=== PATIENT | female | born 1980 | race Caucasian/White ===

== ENCOUNTER 2019-07-11 15:32 | Observation (INO) ==
[2019-07-11] MEDS ORDERED: ACETAMINOPHEN 1,000 MG/100 ML VIAL IV PRN (16:02)
[2019-07-11] MEDS ORDERED: PROCHLORPERAZINE 10 MG in SYRINGE 8 ML IV ONE (16:02)
[2019-07-11] MEDS ORDERED: SODIUM CHLORIDE 0.9% 1000ML 1,000 ML IV ONE (16:02)
[2019-07-11] MEDS ORDERED: PROCHLORPERAZINE 5 MG/ML 2 ML VIAL ONE (16:24)
--- NOTE | 2019-07-11 16:29 | Emergency Department Note ---
History of Present Illness General Chief complaint: Abdominal Pain Stated complaint: UPPER QUADRANT PAIN, CHEST BACK PAIN, THROWING UP Time Seen by Provider: 07/11/19 15:46 History of Present Illness Maximum Pain Intensity: 9 This 38-year-old female presents returns to the ER today after being here yesterday with chief complaint of left upper quadrant abdominal pain and vomiting. The patient states that she has not been able to keep any of her medications down. The patient has been diagnosed with peptic ulcers by endoscopy performed 2 weeks ago with in [place]. She has an appointment with gastroenterology tomorrow at 3:45 PM. The patient states that she is here for pain control. Home Medications Home Medications Medication Instructions Recorded Confirmed Type bumetanide 1 mg PO QAM 07/10/19 07/11/19 History dicyclomine 10 mg PO QID 07/10/19 07/11/19 History gabapentin 400 mg PO TID 07/10/19 07/11/19 History levothyroxine 25 mcg PO QAM 07/10/19 07/11/19 History lorazepam 1 mg PO QID PRN 07/10/19 07/11/19 History naloxone [Narcan] 4 mg INTRANASAL UD 07/10/19 07/11/19 History naproxen sodium 220 mg PO Q8H PRN 07/10/19 07/11/19 History ondansetron 4 mg PO Q6H PRN 07/10/19 07/11/19 History pantoprazole 40 mg PO BID 07/10/19 07/11/19 History sennosides-docusate sodium [Senna 1 tab PO HS 07/10/19 07/11/19 History Plus] sucralfate 1 g PO QID 07/10/19 07/11/19 History venlafaxine 300 mg PO QAM 07/10/19 07/11/19 History zolpidem [Ambien] 10 mg PO HS PRN 07/10/19 07/11/19 History Allergies Allergy/AdvReac Type Severity Reaction Status Date / Time Sulfa (Sulfonamide Allergy Intermediate LUPUS Verified 07/11/19 16:54 Antibiotics) FLARE UP dexamethasone Allergy Unknown HIVES Verified 07/11/19 16:54 duloxetine Allergy Unknown UNKNOWN Verified 07/11/19 16:54 escitalopram Allergy Unknown UNKNOWN Verified 07/11/19 16:54 latex Allergy Unknown HIVES Verified 07/11/19 16:54 morphine Allergy Unknown local Verified 07/11/19 16:54 reaction at site pregabalin Allergy Unknown UNKNOWN Verified 07/11/19 16:54 Past Med/Surg History Medical History Clotting disorder (Chronic) Fibromyalgia (Chronic) Lupus (Chronic 04/04/14) Pleurisy (Resolved) Pulmonary embolism (Resolved) Serositis (Acute) Systemic lupus (Acute) Surgical History H/O: hysterectomy (Resolved) Hx of appendectomy (Resolved) Hx of cholecystectomy (Resolved) Family History Other No pertinent family history in first degree relatives Social History Feels Safe at Home: Yes Smoking Status: Never smoker Review of Systems A total of 10 systems reviewed and were otherwise negative Physical Exam Vital Signs Vital Signs - 24 hr 07/11/19 15:38 07/11/19 17:17 07/11/19 18:28 Temperature 36.9 C Temperature Source Oral Pulse Rate 100 H Pulse Rate [Finger] 95 H 93 H Respiratory Rate 18 20 20 Respiratory Effort / Characteristics Non-Labored Respiratory Depth Normal Respiratory Pattern Regular Blood Pressure 188/140 H Blood Pressure [Right Arm] 171/130 H 155/87 H Blood Pressure Mean 156 Blood Pressure Mean [Right Arm] 143 109 Pulse Oximetry 97 96 96 Oxygen Delivery Method Room Air Room Air Room Air Sepsis Recent Fever Within 48 Hours No Sepsis New/Unexplained Change in Mental Status No Sepsis Action Taken by Nursing No Action Required 07/11/19 18:30 07/11/19 20:30 07/11/19 22:01 Temperature Temperature Source Pulse Rate Pulse Rate [Finger] 87 89 90 Respiratory Rate 18 20 20 Respiratory Effort / Characteristics Non-Labored Spontaneous Respiratory Depth Normal Respiratory Pattern Blood Pressure Blood Pressure [Right Arm] 159/90 H 163/109 H 186/119 H Blood Pressure Mean Blood Pressure Mean [Right Arm] 113 127 141 Pulse Oximetry 96 95 96 Oxygen Delivery Method Room Air Room Air Room Air Sepsis Recent Fever Within 48 Hours Sepsis New/Unexplained Change in Mental Status Sepsis Action Taken by Nursing GENERAL: 38-year-old female appears in no acute distress. MENTAL Status: Alert and oriented x3. MOUTH: Mucosa is moist NECK: Supple, no lymphadenopathy noted. No carotid bruits noted. LUNGS: Clear auscultation without wheezes rales or rhonchi. CARDIAC: Regular rate and rhythm without murmur. Pulses is full and equal throughout. BACK: No CVA tenderness noted. ABDOMEN: Positive bowel sounds all 4 quadrants. Soft, tenderness to palpation in the epigastric region and left upper quadrant otherwise nontender to palpation without organomegaly or masses. EXTREMITIES: No cyanosis or edema noted. Course Administered Medications Discontinued Medications Acetaminophen (Ofirmev) Confirm Administered Dose 1,000 mg IV .STK-MED ONE Stop: 07/11/19 16:24 Last Admin: 07/11/19 17:13 Dose: 1,000 mg Documented by: [id number] Admin: 07/11/19 17:13 Dose: Not Given Documented by: [id number] Diphenhydramine HCl (Benadryl) 50 mg IV NOW STA Stop: 07/11/19 21:45 Last Admin: 07/11/19 21:58 Dose: 50 mg Documented by: [id number] Hydromorphone HCl (Dilaudid) 1 mg IV NOW STA Stop: 07/11/19 17:49 Last Admin: 07/11/19 17:56 Dose: 1 mg Documented by: [id number] Hydromorphone HCl (Dilaudid) 0.5 mg IV NOW STA Stop: 07/11/19 18:50 Last Admin: 07/11/19 19:01 Dose: 0.5 mg Documented by: [id number] Sodium Chloride (Nss 1000ml) 1,000 mls @ 999 mls/hr IV .Q1H1M ONE Stop: 07/11/19 17:02 Last Infusion: 07/11/19 18:28 Dose: 0 mls/hr Documented by: [id number] Admin: 07/11/19 17:13 Dose: 999 mls/hr Documented by: [id number] Prochlorperazine 10 mg/ (Syringe) 10 mls @ 5 mls/min IV ONE ONE Stop: 07/11/19 16:03 Last Admin: 07/11/19 17:12 Dose: 5 mls/min Documented by: [id number] Pantoprazole Sodium 40 mg/ (Syringe) 10 mls @ 5 mls/min IV NOW STA Stop: 07/11/19 21:49 Last Admin: 07/11/19 22:00 Dose: 5 mls/min Documented by: [id number] Prochlorperazine (Compazine) Confirm Administered Dose 10 mg .ROUTE .STK-MED ONE Stop: 07/11/19 16:25 Last Admin: 07/11/19 17:13 Dose: Not Given Documented by: [id number] Promethazine HCl (Phenergan) 25 mg IM NOW STA Stop: 07/11/19 19:07 Last Admin: 07/11/19 19:13 Dose: 25 mg Documented by: [id number] Sucralfate (Carafate) 1 gm PO NOW STA Stop: 07/11/19 18:09 Last Admin: 07/11/19 18:27 Dose: 1 gm Documented by: [id number] Medical Decision Making Differential Diagnosis Peptic ulcer disease, gastritis, Medical Records Attestation: I reviewed the patient's medical records. Home Medications Current Medication List: was personally reviewed by me Laboratory Data Result diagrams: 07/11/19 19:33 07/11/19 19:33 Lab Results 07/11/19 07/11/19 07/11/19 Range/Units 19:33 19:33 19:33 WBC 12.60 H (4.8-10.8) K/uL RBC 4.96 (4.2-5.4) M/uL Hgb 15.5 (12.0-16.0) g/dL Hct 44.6 (37-47) % MCV 89.9 (80-100) fL MCH 31.3 (25-34) pg MCHC 34.8 (32-36) g/dL RDW Std Deviation 41.0 (36.4-46.3) fL RDW Coeff of Meg 12.7 (11.5-14.5) % Plt Count 253 (130-400) K/uL MPV 10.4 (7.4-10.4) fL Immature Gran % (Auto) 0.2 % Neut % (Auto) 78.5 % Lymph % (Auto) 14.5 % [place] % (Auto) 6.7 % Eos % (Auto) 0.0 % Baso % (Auto) 0.1 % Immature Gran # (Auto) 0.03 H (0.00-0.02) K/uL Neut # (Auto) 9.89 H (1.4-6.5) K/uL Lymph # (Auto) 1.83 (1.2-3.4) K/uL [place] # (Auto) 0.84 H (0.11-0.59) K/uL Eos # (Auto) 0.00 (0-0.5) K/uL Baso # (Auto) 0.01 (0-0.2) K/uL PT 10.9 (9.0-12.0) Seconds INR 1.1 (0.9-1.1) Sodium 139 (136-145) mmol/L Potassium 3.4 L (3.5-5.1) mmol/L Chloride 107 (98-107) mmol/L Carbon Dioxide 25 (21-32) mmol/L Anion Gap 7.0 (3-11) BUN 18 (7-18) mg/dl Creatinine 1.13 (0.6-1.2) mg/dl Est Cr Clr Drug Dosing 90.1 ml/min Est GFR ( Amer) 71.4 Est GFR (Non-Af Amer) 61.6 BUN/Creatinine Ratio 16.1 (10-20) Glucose 96 (70-99) mg/dl Calcium 9.1 (8.5-10.1) mg/dl Total Bilirubin 0.3 (0.2-1) mg/dl AST 13 L (15-37) U/L ALT 20 (12-78) U/L Alkaline Phosphatase 78 (45-117) U/L Total Protein 7.7 (6.4-8.2) gm/dl Albumin 4.1 (3.4-5.0) gm/dl Globulin 3.6 (2.5-4.0) gm/dl Albumin/Globulin Ratio 1.1 (0.9-2) Blood Pressure Blood Pressure Findings: Elevated blood pressure Blood Pressure Disposition: Referred to patients primary care provider MDM Narrative The patient was evaluated. The patient was just seen here last evening for the same thing. The patient's labs were unremarkable. Her hemoglobin was 16 and hematocrit was 44. White count was normal. LFTs were normal. IV access was obtained. The patient was given 1 L normal saline. She was given Compazine 10 mg IV and Tylenol 1 g IV for pain. The patient was reevaluated and still was not feeling any better therefore she was given Dilaudid 1 mg IV for pain. After her pain seemed to be slightly better she was given Carafate to see if this would calm her stomach pain. She was reevaluated and stated she was not any better. She was given an additional 1.5 mg of Dilaudid IV and Phenergan 25 mg IM for persistent nausea. I feel that this patient will need to be admitted due to her uncontrolled pain. Therefore I will draw labs on the patient before admission. CBC and differential, renal profile, LFTs and coags were ordered. Labs are reviewed. White count was slightly elevated 12.6. Hemoglobin and hematocrit were stable at 15.5 and 44.6 respectively. INR is 1.1. Potassium is slightly low at 3.4. LFTs are normal. The patient was informed of the lab findings. The patient was still complaining of pain at an 8 out of 10. She was given Benadryl 50 mg IV and Protonix 40 mg IV push. The hospitalist was consulted for admission. Impression & Plan Intractable epigastric abdominal pain, Peptic ulcer disease Discharge Plan Visit Data Chief Complaint: Abdominal Pain Stated Complaint: UPPER QUADRANT PAIN, CHEST BACK PAIN, THROWING UP ED Provider: Abel Crespo ED Midlevel Provider: Xi Uriostegui Discharge Problem: Intractable epigastric abdominal pain, Peptic ulcer disease Patient Disposition: Being Evaluated by Hospitalist Condition: Good Forms Stand Alone Forms: Call Back Authorization, [facility] Prescriptions Prescriptions: No Action sucralfate 1 gram tablet 1 g PO QID RF: 0 sennosides-docusate sodium [Senna Plus] 8.6-50 mg tablet 1 tab PO HS RF: 0 gabapentin 400 mg capsule 400 mg PO TID RF: 0 venlafaxine 150 mg capsule,extended release 24hr 300 mg PO QAM RF: 0 levothyroxine 25 mcg tablet 25 mcg PO QAM RF: 0 pantoprazole 40 mg tablet,delayed release (DR/EC) 40 mg PO BID RF: 0 naproxen sodium 220 mg Tablet 220 mg PO Q8H PRN (Reason: Pain) RF: 0 bumetanide 1 mg tablet 1 mg PO QAM RF: 0 ondansetron 4 mg tablet,disintegrating 4 mg PO Q6H PRN (Reason: Nausea) RF: 0 dicyclomine 10 mg capsule 10 mg PO QID RF: 0 Narcan 4 mg/actuation spray,non-aerosol 4 mg INTRANASAL UD RF: 0 lorazepam 1 mg Tablet 1 mg PO QID PRN (Reason: Anxiety) RF: 0 zolpidem [Ambien] 10 mg Tablet 10 mg PO HS PRN (Reason: Sleep) RF: 0 Referrals Referrals: Ashwin Garcia, [Primary Care Provider] -
[2019-07-11] MEDS: ACETAMINOPHEN 1000 MG/100 ML IV IV ONE ×2 (17:13)
[2019-07-11] MEDS ORDERED: HYDROmorphone INJ 1 MG/ML SYRINGE IV STA (17:48)
[2019-07-11] MEDS ORDERED: SUCRALFATE 1 GM/10 ML UDC PO STA (18:08)
[2019-07-11] MEDS ORDERED: HYDROmorphone INJ 0.5 MG/0.5 ML SYR IV STA (18:49)
[2019-07-11] MEDS ORDERED: PROMETHAZINE HCL INJ 25 MG/ML 1 ML VIAL IM STA (19:06)
[2019-07-11 19:55] LABS: Basophils # (auto) 0.01 K/uL (0-0.2); Basophils % (auto) 0.1 %; Hematocrit (blood only) 44.6 % (37-47); Hemoglobin 15.5 g/dL (12.0-16.0); Immature Granulocytes # (auto) 0.03 K/uL (0.00-0.02); Immature Granulocytes % (auto) 0.2 %; Lymphocytes # (auto) 1.83 K/uL (1.2-3.4); Lymphocytes % (auto) 14.5 %; Mean Corpuscular Hemoglobin 31.3 pg (25-34); Mean Corpuscular Hgb Conc 34.8 g/dL (32-36); Mean Corpuscular Volume 89.9 fL (80-100); Mean Platelet Volume 10.4 fL (7.4-10.4); Monocytes # (auto) 0.84 K/uL (0.11-0.59); Monocytes % (auto) 6.7 %; Neutrophils # (auto) 9.89 K/uL (1.4-6.5); Neutrophils % (auto) 78.5 %; Platelet Count 253 K/uL (130-400); RDW Coefficient of Variation 12.7 % (11.5-14.5); Red Blood Count 4.96 M/uL (4.2-5.4)
[2019-07-11 20:04] LABS: INR 1.1 (0.9-1.1); Prothrombin Time 10.9 Seconds (9.0-12.0)
[2019-07-11 20:20] LABS: Albumin Level 4.1 gm/dl (3.4-5.0); BUN Creatinine Ratio 16.1 (10-20); Calcium 9.1 mg/dl (8.5-10.1); Creatinine Clr Calc Pharmacy 90.1 ml/min; Est GFR (African American) 71.4; Est GFR (Non-African American) 61.6; Potassium 3.4 mmol/L (3.5-5.1)
[2019-07-11 20:22] LABS: Albumin Globulin Ratio 1.1 (0.9-2); Bilirubin,Total 0.3 mg/dl (0.2-1); Globulin 3.6 gm/dl (2.5-4.0); Total Protein 7.7 gm/dl (6.4-8.2)
[2019-07-11] MEDS ORDERED: DiphenhydrAMINE HCL 50 MG/ML VIAL IV STA (21:44)
[2019-07-11] MEDS ORDERED: PANTOprazole 40 MG in SYRINGE 0 ML IV STA (21:48)
--- NOTE | 2019-07-11 22:24 | History & Physical Report ---
Date of Service July 11, 2019 Assessment & Plan (1) Abdominal pain, LUQ: Admit to [facility] on telemetry for observation Vital signs every 4 hours. Normal saline at 100 cc/h IV. Pain management Continue dicyclomine 10 mg p.o. 4 times daily Sucralfate 1 mg p.o. 4 times daily Antinausea with Phenergan, Compazine and Zofran. DVT prophylaxis teds and SCDs due to possible GI bleed. CBC every 8 hours. Consult [facility] GI Full code Present on Admission?: Yes (2) Fibromyalgia: Chronic issue. Continue gabapentin 400 mg p.o. 3 times daily, lorazepam 1 mg p.o. 4 times daily as needed, venlafaxine 300 mg p.o. every morning, zolpidem 10 mg p.o. nightly as needed. Present on Admission?: Yes (3) Systemic lupus: Chronic issue, patient is not on any medication at this time. Present on Admission?: Yes (4) UTI (lower urinary tract infection): Started ceftriaxone 2000 mg IV every 24 hours. Stop antibiotics if urine culture negative. Present on Admission?: Yes (5) Hyperthyroidism: TSH pending. Continue levothyroxine 25 MCG's p.o. every morning. Present on Admission?: Yes History of Present Illness Chief Complaint: Abdominal pain Primary Care Provider: Ashwin Garcia DO Patient is a 38 years old female with past medical history of lupus, cholecystectomy, hysterectomy, appendectomy, fibromyalgia who presents to the emergency room with complaint of abdominal pain and nausea and vomiting. Patient was in the emergency room yesterday and chief complaint was the same. Patient states that she was seen 2 weeks ago by [facility] gastroenterology and underwent endoscopy which determined that she has a peptic ulcers. Patient has appointment with gastroenterology to moderate 3:45 PM. Patient presumptively has urinary tract infection with 1+ bacteria. It could be considered also nonsterile catch. Labs are reviewed: WBCs 12.6, hemoglobin 15.5, hematocrit 44.6 platelets 253, PT 10.9, INR 1.1, sodium 139, potassium 3.4, chloride 107, BUN 18, creatinine 1.13, GFR 61.6, calcium 9.1, AST 13, ALT 20, alkaline phosphatase [address] abdomen and pelvis is done and shows severe small left ovarian cyst measuring 2.5 cm. Otherwise negative past cholecystectomy nonobstructive bowel pattern. Decision was made to admit patient for observation MedSurg telemetry and for better markus pain control. [facility]. Allergies Allergy/AdvReac Type Severity Reaction Status Date / Time Sulfa (Sulfonamide Allergy Intermediate LUPUS Verified 07/11/19 16:54 Antibiotics) FLARE UP dexamethasone Allergy Unknown HIVES Verified 07/11/19 16:54 duloxetine Allergy Unknown UNKNOWN Verified 07/11/19 16:54 escitalopram Allergy Unknown UNKNOWN Verified 07/11/19 16:54 latex Allergy Unknown HIVES Verified 07/11/19 16:54 morphine Allergy Unknown local Verified 07/11/19 16:54 reaction at site pregabalin Allergy Unknown UNKNOWN Verified 07/11/19 16:54 Home Medications Home Medications Medication Instructions Recorded Confirmed Type bumetanide 1 mg PO QAM 07/10/19 07/11/19 History dicyclomine 10 mg PO QID 07/10/19 07/11/19 History gabapentin 400 mg PO TID 07/10/19 07/11/19 History levothyroxine 25 mcg PO QAM 07/10/19 07/11/19 History lorazepam 1 mg PO QID PRN 07/10/19 07/11/19 History naloxone [Narcan] 4 mg INTRANASAL UD 07/10/19 07/11/19 History naproxen sodium 220 mg PO Q8H PRN 07/10/19 07/11/19 History ondansetron 4 mg PO Q6H PRN 07/10/19 07/11/19 History pantoprazole 40 mg PO BID 07/10/19 07/11/19 History sennosides-docusate sodium [Senna 1 tab PO HS 07/10/19 07/11/19 History Plus] sucralfate 1 g PO QID 07/10/19 07/11/19 History venlafaxine 300 mg PO QAM 07/10/19 07/11/19 History zolpidem [Ambien] 10 mg PO HS PRN 07/10/19 07/11/19 History Past Med/Surg History Medical History Clotting disorder (Chronic) Fibromyalgia (Chronic) Lupus (Chronic 04/04/14) Pleurisy (Resolved) Pulmonary embolism (Resolved) Serositis (Acute) Systemic lupus (Acute) Surgical History H/O: hysterectomy (Resolved) Hx of appendectomy (Resolved) Hx of cholecystectomy (Resolved) Family History Other No pertinent family history in first degree relatives Social History Feels Safe at Home: Yes Smoking Status: Never smoker Review of Systems Review of Systems: All systems reviewed & are unremarkable except as noted in HPI & below Physical Exam Constitutional: WD/WN, vitals as above well developed Eyes: PERRL, conjunctivae normal, anicteric sclerae ENMT: external ear and nose normal, oropharynx normal Neck: trachea midline, no thyromegaly Respiratory: normal respiratory effort, lungs clear to auscultation Cardiovascular: RRR, no murmur, no edema Gastrointestinal (Abdomen): normal bowel sounds, soft, nontender, no hepatosplenomegaly Inspection/Auscultation: abdomen normal to inspection and normal bowel sounds Percussion/Palpation: + abdomen tender, + guarding and + tympanic to percussion Musculoskeletal: no cyanosis or clubbing, extremities motor strength 5/5 Skin: no rashes, warm and dry Neurologic: patellar DTR's 2+ bilat, sensation intact Psychiatric: A+Ox3, euthymic affect Lymphatic: no cervical or axillary lymphadenopathy Results & Data Vital Signs (Past 12 Hours) Vital Signs Temp Pulse Pulse Resp BP BP Pulse Ox 07/11/19 22:01 90 20 186/119 H 96 07/11/19 20:30 89 20 163/109 H 95 07/11/19 18:30 87 18 159/90 H 96 07/11/19 18:28 93 H 20 155/87 H 96 07/11/19 17:17 95 H 20 171/130 H 96 07/11/19 15:38 36.9 C 100 H 18 188/140 H 97 Code Status & VTE Plan Code Status Full code VTE Prophylaxis Plan VTE Prophylaxis will be ordered: Yes PG Care Time/CCT Total # of Minutes Spent Total Time Spent with Patient: Total time spent is greater than 50% in coordination of care (as documented) at patient's floor/unit and/or counseling patient:
[2019-07-11] MEDS ORDERED: fentaNYL 25 MCG/HR TDSY TD SCH (23:00)
[2019-07-11] MEDS ORDERED: POLYETHYLENE (MIRALAX) 17 GM PACK PO PRN (23:34)
[2019-07-11] MEDS ORDERED: ALUMINUM/MAGNESIUM SUSP 30 ML UDC PO PRN (23:34)
[2019-07-11] MEDS ORDERED: MAGNESIUM HYDROXIDE SUSP 30 ML UDC PO PRN (23:34)
[2019-07-11] MEDS ORDERED: ACETAMINOPHEN 325 MG TAB PO PRN (23:34)
[2019-07-12] MEDS: LORazepam 1 MG TAB PO PRN ×5 (00:09→21:10)
[2019-07-12] MEDS: ZOLPIDEM TARTRATE 10 MG TAB PO PRN ×2 (00:09→21:10)
[2019-07-12] MEDS: CHECK FENTANYL PATCH PLACEMENT SCH ×3 (00:12→15:53)
[2019-07-12] MEDS: cefTRIAXone SODIUM 2,000 MG/70 ML BAG IV SCH (00:12)
[2019-07-12] MEDS ORDERED: OXYCODONE HCL IR 5 MG TAB (IMMEDIATE RELEASE) PO STA ×2 (00:44→05:33)
[2019-07-12] MEDS: LEVOTHYROXINE SODIUM 25 MCG TABLET PO SCH (05:39)
[2019-07-12] MEDS: BUMETANIDE 1 MG TAB PO SCH (08:09)
[2019-07-12] MEDS: DICYCLOMINE HCL 10 MG CAP PO SCH ×4 (08:09→21:05)
[2019-07-12] MEDS: GABAPENTIN 400 MG CAP PO SCH ×3 (08:10→21:05)
[2019-07-12] MEDS: PANTOprazole 40 MG in SYRINGE 0 ML IV SCH ×2 (08:10→21:05)
[2019-07-12] MEDS: SUCRALFATE 1 GM TAB PO SCH ×4 (08:11→21:05)
[2019-07-12] MEDS: VENLAFAXINE HCL XR 150 MG CAPXR PO SCH (08:11)
--- NOTE | 2019-07-12 08:32 | Communication Note ---
Date of Service: July 12, 2019 Upon entering pt room she notes she was to see Dr. Jeffries with [facility] as an outpatient today - will discuss with primary service for continuity of care. Please recall [facility] if needed. Of note, outpatient [facility] facilities do not accept her insurance.
[2019-07-12] MEDS ORDERED: INFLUENZA VIRUS QUAD VACCINE 0.5 ML SYR IM ONE (09:00)
[2019-07-12] MEDS ORDERED: INFLUENZA ADMINISTRATION CHARGE ONE (09:00)
[2019-07-12] MEDS: HYDROmorphone INJ 1 MG/ML SYRINGE IV PRN ×3 (12:19→21:06)
[2019-07-12 12:42] LABS: Basophils # (auto) 0.04 K/uL (0-0.2); Basophils % (auto) 0.4 %; Eosinophils # (auto) 0.11 K/uL (0-0.5); Eosinophils % (auto) 1.2 %; Hematocrit (blood only) 42.5 % (37-47); Hemoglobin 14.8 g/dL (12.0-16.0); Immature Granulocytes # (auto) 0.02 K/uL (0.00-0.02); Immature Granulocytes % (auto) 0.2 %; Lymphocytes # (auto) 2.95 K/uL (1.2-3.4); Lymphocytes % (auto) 32.7 %; Mean Corpuscular Hemoglobin 31.8 pg (25-34); Mean Corpuscular Hgb Conc 34.8 g/dL (32-36); Mean Corpuscular Volume 91.2 fL (80-100); Mean Platelet Volume 10.1 fL (7.4-10.4); Monocytes # (auto) 0.39 K/uL (0.11-0.59); Monocytes % (auto) 4.3 %; Neutrophils # (auto) 5.52 K/uL (1.4-6.5); Neutrophils % (auto) 61.2 %; Platelet Count 200 K/uL (130-400); RDW Standard Deviation 42.7 fL (36.4-46.3); Red Blood Count 4.66 M/uL (4.2-5.4); White Blood Count 9.03 K/uL (4.8-10.8)
[2019-07-12 13:10] LABS: Alanine Aminotransferase 19 U/L (12-78); Albumin Level 3.9 gm/dl (3.4-5.0); Aspartate Aminotransferase 12 U/L (15-37); BUN Creatinine Ratio 17.1 (10-20); Blood Urea Nitrogen 20 mg/dl (7-18); Calcium 8.9 mg/dl (8.5-10.1); Carbon Dioxide 29 mmol/L (21-32); Chloride 104 mmol/L (98-107); Creatinine Clr Calc Pharmacy 88.4 ml/min; Est GFR (African American) 69.9; Est GFR (Non-African American) 60.3; Glucose 85 mg/dl (70-99); Lipase 36 U/L (73-393); Potassium 3.2 mmol/L (3.5-5.1); Sodium 138 mmol/L (136-145)
[2019-07-12 13:12] LABS: Albumin Globulin Ratio 1.1 (0.9-2); Alkaline Phosphatase 72 U/L (45-117); Bilirubin,Total 0.5 mg/dl (0.2-1); C Reactive Protein < 0.29 mg/dl (0-0.29); Globulin 3.5 gm/dl (2.5-4.0); Total Protein 7.4 gm/dl (6.4-8.2)
--- NOTE | 2019-07-12 14:04 | Hospitalist Progress Note ---
Date of Service July 12, 2019 Assessment & Plan (1) Abdominal pain, LUQ: no clear etiology CMP, CBC, lipase, ESR, CRP normal no pancreatitis or other inflammatory/infectious changes on CT from 07/10 no vomiting, no diarrhea EGD 07/12 completely normal will reassess pain in the morning, discussed with her that I will not prescribe narcotics on discharge as there is no reason for pain (2) Fibromyalgia: Chronic issue. Continue gabapentin 400 mg p.o. 3 times daily, lorazepam 1 mg p.o. 4 times daily as needed, venlafaxine 300 mg p.o. every morning, zolpidem 10 mg p.o. nightly as needed. would need follow up with new PCP, oysterman will try to help her arrange tomorrow (3) Systemic lupus: describes h/o rash, arthralgia, nephritis also with h/o coagulopathy, 7 spontaneous miscarriages, had hysterectomy due to menorrhagia will try to get prior records not on medications for 4 years, does not have a oysterman (4) UTI (lower urinary tract infection): continue ceftriaxone 2000 mg IV every 24 hours. urine culture with moderate counts of three organisms no plan to continue abx on discharge (5) Hyperthyroidism: TSH normal Subjective patient c/o constant left upper quadrant pain radiates to epigastric and RUQ region as well as up to chest she had pain like this before prior to her EGD two weeks ago that showed gastritis she reports that the pain started two days ago, associated with vomiting, she reports that she saw blood and clots she is moving her bowels, no dark stools or melena she has had minimal relief with the Bentyl and Fentanyl patch that was prescribed she confirms h/o appendectomy, cholecystectomy she had a hysterectomy due to 7 miscarriages and menorrhagia, says it was attributed to lupus her h/o lupus is kind of vague, she says she gets skin and arthritic manifestations she says she has low grade nephritis however, she has not been on any treatment for 4 years, does not follow with oysterman repeated labs, CMP, CBC, lipase, ESR and CRP all normal reviewed CT from 07/10, no pancreatits, no intra-abdominal abnormalities d/w Dr. Rashid, he performed EGD this afternoon completely normal scope discussed with her afterwards, no real etiology for pain she kept saying she was not pain seeking Review of Systems Review of Systems: All systems reviewed & are unremarkable except as noted in HPI & below Physical Exam Constitutional: WD/WN, vitals as above Eyes: PERRL, conjunctivae normal, anicteric sclerae ENMT: external ear and nose normal, oropharynx normal Neck: trachea midline, no thyromegaly Respiratory: normal respiratory effort, lungs clear to auscultation Cardiovascular: RRR, no murmur, no edema Gastrointestinal (Abdomen): Inspection/Auscultation: abdomen normal to inspection and normal bowel sounds; abdomen not distended Percussion/Palpation: + abdomen tender (LUQ), + guarding, abdomen soft and normal to percussion; abdomen not rigid, no hepatosplenomegaly, no pulsatile mass and no ascites Musculoskeletal: no cyanosis or clubbing, extremities motor strength 5/5 Skin: no rashes, warm and dry Neurologic: patellar DTR's 2+ bilat, sensation intact and PERRL, EOMI, accommodation nl, no face palsy, no dysarthria Psychiatric: A+Ox3, euthymic affect Lymphatic: no cervical or axillary lymphadenopathy Results & Data Vital Signs (Past 12 Hours) Vital Signs Temp Pulse Pulse Resp BP BP Pulse Ox 07/12/19 12:15 36.8 C 69 18 149/82 H 93 07/12/19 07:57 36.7 C 76 20 142/80 H 94 07/12/19 07:32 77 07/12/19 03:40 36.8 C 79 18 150/72 H 95 Laboratory Results Laboratory Results - last 24 hr 07/11/19 07/12/19 07/12/19 19:33 08:50 12:19 WBC 9.03 RBC 4.66 Hgb 14.8 Hct 42.5 MCV 91.2 MCH 31.8 MCHC 34.8 RDW Std Deviation 42.7 RDW Coeff of Meg 13.0 Plt Count 200 MPV 10.1 Immature Gran % (Auto) 0.2 Neut % (Auto) 61.2 Lymph % (Auto) 32.7 Moore % (Auto) 4.3 Eos % (Auto) 1.2 Baso % (Auto) 0.4 Immature Gran # (Auto) 0.02 Neut # (Auto) 5.52 Lymph # (Auto) 2.95 Moore # (Auto) 0.39 Eos # (Auto) 0.11 Baso # (Auto) 0.04 ESR Sodium 139 Potassium 3.4 L Chloride 107 Carbon Dioxide 25 Anion Gap 7.0 BUN 18 Creatinine 1.13 Est Cr Clr Drug Dosing 90.1 Est GFR ( Amer) 71.4 Est GFR (Non-Af Amer) 61.6 BUN/Creatinine Ratio 16.1 Glucose 96 Calcium 9.1 Total Bilirubin 0.3 AST 13 L ALT 20 Alkaline Phosphatase 78 C-Reactive Protein Total Protein 7.7 Albumin 4.1 Globulin 3.6 Albumin/Globulin Ratio 1.1 Lipase TSH 2.160 07/12/19 07/12/19 12:19 12:19 WBC RBC Hgb Hct MCV MCH MCHC RDW Std Deviation RDW Coeff of Meg Plt Count MPV Immature Gran % (Auto) Neut % (Auto) Lymph % (Auto) Moore % (Auto) Eos % (Auto) Baso % (Auto) Immature Gran # (Auto) Neut # (Auto) Lymph # (Auto) Moore # (Auto) Eos # (Auto) Baso # (Auto) ESR 8 Sodium 138 Potassium 3.2 L Chloride 104 Carbon Dioxide 29 Anion Gap 5.0 BUN 20 H Creatinine 1.15 Est Cr Clr Drug Dosing 88.4 Est GFR ( Amer) 69.9 Est GFR (Non-Af Amer) 60.3 BUN/Creatinine Ratio 17.1 Glucose 85 Calcium 8.9 Total Bilirubin 0.5 AST 12 L ALT 19 Alkaline Phosphatase 72 C-Reactive Protein < 0.29 Total Protein 7.4 Albumin 3.9 Globulin 3.5 Albumin/Globulin Ratio 1.1 Lipase 36 L TSH Diagnostic Findings EGD: normal stomach, duodenum, esophagus, no evidence of ulcers or inflammation Medications Administered Current Inpatient Medications Acetaminophen (Tylenol) 650 mg PO Q4H PRN PRN Reason: pain/fever Stop: 08/10/19 23:33 Al Hydrox/Mg Hydrox/Simethicone (Maalox) 30 ml PO Q6H PRN PRN Reason: Dyspepsia Stop: 08/10/19 23:33 Bumetanide (Bumex) 1 mg PO QAM [facility]AO Stop: 08/11/19 08:59 Last Admin: 07/12/19 08:09 Dose: 1 mg Documented by: Dicyclomine HCl (Bentyl) 10 mg PO ACHS THAO Stop: 08/11/19 07:29 Last Admin: 07/12/19 15:54 Dose: 10 mg Documented by: Fentanyl (Duragesic) 25 mcg TD Q3D [facility] Stop: 07/25/19 22:59 Last Admin: 07/12/19 00:09 Dose: 25 mcg Documented by: Gabapentin (Neurontin) 400 mg PO TID [facility] Stop: 08/11/19 08:59 Last Admin: 07/12/19 15:53 Dose: 400 mg Documented by: Hydromorphone HCl (Dilaudid) 1 mg IV Q4H PRN PRN Reason: Pain Stop: 07/26/19 12:11 Last Admin: 07/12/19 15:51 Dose: 1 mg Documented by: Ceftriaxone Sodium (Rocephin) 2,000 mg in 70 mls @ 140 mls/hr IV Q24H [facility] Stop: 07/17/19 00:00 Last Infusion: 07/12/19 00:42 Dose: Infused Documented by: Pantoprazole Sodium 40 mg/ (Syringe) 10 mls @ 5 mls/min IV BID@0900,2100 [facility] Stop: 08/11/19 08:59 Last Admin: 07/12/19 08:10 Dose: 5 mls/min Documented by: Sodium Chloride (Nss 1000ml) 1,000 mls @ 15 mls/hr IV .Q24H [facility] Stop: 07/13/19 14:44 Last Admin: 07/12/19 17:20 Dose: Not Given Documented by: Levothyroxine Sodium (Synthroid) 25 mcg PO DAILYBB [facility] Stop: 08/11/19 06:29 Last Admin: 07/12/19 05:39 Dose: 25 mcg Documented by: Lorazepam (Ativan) 1 mg PO QID PRN PRN Reason: Anxiety Stop: 08/10/19 23:40 Last Admin: 07/12/19 16:05 Dose: 1 mg Documented by: Magnesium Hydroxide (Milk Of Magnesia) 30 ml PO Q6H PRN PRN Reason: Constipation Stop: 08/10/19 23:33 Miscellaneous (Fentanyl Patch Remove & Waste) 1 ea N/A Q3D [facility] Stop: 08/13/19 22:58 Miscellaneous (Fentanyl Patch Check Placement) 1 ea N/A QS [facility] Stop: 08/11/19 00:00 Last Admin: 07/12/19 15:53 Dose: 1 ea Documented by: Ondansetron HCl (Zofran) 4 mg IV Q6H PRN PRN Reason: Nausea Stop: 08/10/19 23:33 Polyethylene Glycol (Miralax Powder Packet) 17 gm PO DAILY PRN PRN Reason: Constipation Stop: 08/10/19 23:33 Last Admin: 07/12/19 16:14 Dose: 17 gm Documented by: Senna/Docusate Sodium (Senokot S) 1 tab PO HS [facility] Stop: 08/11/19 20:59 Sucralfate (Carafate Tab) 1 gm PO QID [facility] Stop: 08/11/19 08:59 Last Admin: 07/12/19 16:00 Dose: 1 gm Documented by: Venlafaxine HCl (Effexor Extended Release) 300 mg PO QAM [facility] Stop: 08/11/19 08:59 Last Admin: 07/12/19 08:11 Dose: 300 mg Documented by: Zolpidem Tartrate (Ambien) 10 mg PO HS PRN PRN Reason: Sleep Stop: 08/10/19 23:33 Last Admin: 07/12/19 00:09 Dose: 10 mg Documented by: PG Care Time/CCT Total # of Minutes Spent Total Time Spent: 45 Total Time Spent with Patient: Total time spent is greater than 50% in coordination of care (as documented) at patient's floor/unit and/or counseling patient:
[2019-07-12] MEDS ORDERED: ONDANSETRON INJ 2 MG/ML 2 ML VIAL ONE (14:38)
[2019-07-12] MEDS ORDERED: PROPOFOL IV EMULSION 10 MG/ML 20 ML VIAL IV ONE (14:38)
[2019-07-12] MEDS ORDERED: GLYCOPYRROLATE 0.2 MG/ML VIAL ONE (14:38)
[2019-07-12] MEDS ORDERED: LIDOCAINE HCL 2% 2 ML VIAL/AMP(20MG/ML) INFIL ONE (14:38)
--- NOTE | 2019-07-12 14:43 | History & Physical Report ---
Date of Service July 12, 2019 History of Present Illness Chief Complaint: abd pain, N and V, Hematemesis Primary Care Provider: Ashwin Garcia, For EGD Allergies Allergy/AdvReac Type Severity Reaction Status Date / Time Sulfa (Sulfonamide Allergy Intermediate LUPUS Verified 07/12/19 14:36 Antibiotics) FLARE UP dexamethasone Allergy Unknown HIVES Verified 07/12/19 14:36 duloxetine Allergy Unknown UNKNOWN Verified 07/12/19 14:36 escitalopram Allergy Unknown UNKNOWN Verified 07/12/19 14:36 latex Allergy Unknown HIVES Verified 07/12/19 14:36 morphine Allergy Unknown local Verified 07/12/19 14:36 reaction at site pregabalin Allergy Unknown UNKNOWN Verified 07/12/19 14:36 Home Medications Home Medications Medication Instructions Recorded Confirmed Type bumetanide 1 mg PO QAM 07/10/19 07/11/19 History dicyclomine 10 mg PO QID 07/10/19 07/11/19 History gabapentin 400 mg PO TID 07/10/19 07/11/19 History levothyroxine 25 mcg PO QAM 07/10/19 07/11/19 History lorazepam 1 mg PO QID PRN 07/10/19 07/11/19 History naloxone [Narcan] 4 mg INTRANASAL UD 07/10/19 07/11/19 History naproxen sodium 220 mg PO Q8H PRN 07/10/19 07/11/19 History ondansetron 4 mg PO Q6H PRN 07/10/19 07/11/19 History pantoprazole 40 mg PO BID 07/10/19 07/11/19 History sennosides-docusate sodium [Senna 1 tab PO HS 07/10/19 07/11/19 History Plus] sucralfate 1 g PO QID 07/10/19 07/11/19 History venlafaxine 300 mg PO QAM 07/10/19 07/11/19 History zolpidem [Ambien] 10 mg PO HS PRN 07/10/19 07/11/19 History Past Med/Surg History Medical History Clotting disorder (Chronic) Fibromyalgia (Chronic) Lupus (Chronic 04/04/14) Pleurisy (Resolved) Pulmonary embolism (Resolved) Serositis (Acute) Systemic lupus (Acute) Surgical History H/O: hysterectomy (Resolved) Hx of appendectomy (Resolved) Hx of cholecystectomy (Resolved) Family History Other No pertinent family history in first degree relatives Social History Preferred Language: Bengali Communication Ability: Effective 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 Beliefs That Will Affect Care: None Current Living Situation: Significant Other Current Living Situation Comment: [place] Feels Safe at Home: Yes Smoking Status: Current every day smoker Tobacco Type: cigarettes ; Cigarettes Per Day: 0-2 ; Hx Alcohol Use: No Hx Substance Use: No Physical Exam Constitutional: + morbidly obese Respiratory: normal respiratory effort Cardiovascular: Rate/Rhythm: regular rate and regular rhythm Gastrointestinal (Abdomen): Percussion/Palpation: abdomen soft Results & Data Vital Signs (Past 12 Hours) Vital Signs Temp Pulse Pulse Resp BP BP Pulse Ox 07/12/19 12:15 36.8 C 69 18 149/82 H 93 07/12/19 07:57 36.7 C 76 20 142/80 H 94 07/12/19 07:32 77 07/12/19 03:40 36.8 C 79 18 150/72 H 95 Code Status & VTE Plan VTE Prophylaxis Plan VTE Prophylaxis will be ordered: Yes
[2019-07-12] MEDS ORDERED: SODIUM CHLORIDE 0.9% 1000ML 1,000 ML IV SCH (14:45)
--- NOTE | 2019-07-12 14:47 | Anesthesiology Consultation ---
Date of Service July 12, 2019 Assessment & Plan Chart Review Chart Review: Acceptable Risk for Surgery Consults Requested none History Surgery Operation Date: 07/12/19 16:45 Proposed Procedures p Esophagogastroduodenoscopy Dr Gay Rashid Height/Weight Height: 5 ft 9 in Weight: 111.8 kg Allergies Allergy/AdvReac Type Severity Reaction Status Date / Time Sulfa (Sulfonamide Allergy Intermediate LUPUS Verified 07/12/19 14:36 Antibiotics) FLARE UP dexamethasone Allergy Unknown HIVES Verified 07/12/19 14:36 duloxetine Allergy Unknown UNKNOWN Verified 07/12/19 14:36 escitalopram Allergy Unknown UNKNOWN Verified 07/12/19 14:36 latex Allergy Unknown HIVES Verified 07/12/19 14:36 morphine Allergy Unknown local Verified 07/12/19 14:36 reaction at site pregabalin Allergy Unknown UNKNOWN Verified 07/12/19 14:36 Medications Home Medications Medication Instructions Recorded Confirmed Last Taken bumetanide 1 mg PO QAM 07/10/19 07/11/19 07/10/19 dicyclomine 10 mg PO QID 07/10/19 07/11/19 07/10/19 gabapentin 400 mg PO TID 07/10/19 07/11/19 07/10/19 levothyroxine 25 mcg PO QAM 07/10/19 07/11/19 07/10/19 lorazepam 1 mg PO QID PRN 07/10/19 07/11/19 07/10/19 naloxone [Narcan] 4 mg INTRANASAL UD 07/10/19 07/11/19 Unknown naproxen sodium 220 mg PO Q8H PRN 07/10/19 07/11/19 07/11/19 440 mg ondansetron 4 mg PO Q6H PRN 07/10/19 07/11/19 07/10/19 1 tablet pantoprazole 40 mg PO BID 07/10/19 07/11/19 07/10/19 sennosides-docusate sodium [Senna 1 tab PO HS 07/10/19 07/11/19 07/10/19 Plus] sucralfate 1 g PO QID 07/10/19 07/11/19 07/10/19 venlafaxine 300 mg PO QAM 07/10/19 07/11/19 07/10/19 zolpidem [Ambien] 10 mg PO HS PRN 07/10/19 07/11/19 07/09/19 Active Medications Generic Name Dose Route Start Last Admin Trade Name Kayleigh PRN Reason Stop Dose Admin Bumetanide 1 mg 07/12/19 09:00 07/12/19 08:09 Bumex PO 08/11/19 08:59 1 mg QAM [facility]OA Administration Dicyclomine HCl 10 mg 07/12/19 07:30 07/12/19 12:13 Bentyl PO 08/11/19 07:29 10 mg ACHS THAO Administration Fentanyl 25 mcg 07/11/19 23:00 07/12/19 00:09 Duragesic TD 07/25/19 22:59 25 mcg Q3D [facility] Administration Gabapentin 400 mg 07/12/19 09:00 07/12/19 08:10 Neurontin PO 08/11/19 08:59 400 mg TID [facility]AO Administration Hydromorphone HCl 1 mg 07/12/19 12:12 07/12/19 12:19 Dilaudid IV 07/26/19 12:11 1 mg Q4H PRN Administration Pain Ceftriaxone Sodium 2,000 mg in 70 mls @ 140 mls/hr 07/12/19 00:00 07/12/19 00:42 Rocephin IV 07/17/19 00:00 Infused Q24H [facility] Infusion Pantoprazole Sodium 40 mg/ 10 mls @ 5 mls/min 07/12/19 09:00 07/12/19 08:10 Syringe IV 08/11/19 08:59 5 mls/min BID@0900,2100 [facility] Administration Levothyroxine Sodium 25 mcg 07/12/19 06:30 07/12/19 05:39 Synthroid PO 08/11/19 06:29 25 mcg DAILYBB [facility] Administration Lorazepam 1 mg 07/11/19 23:41 07/12/19 10:08 Ativan PO 08/10/19 23:40 1 mg QID PRN Administration Anxiety Miscellaneous 1 ea 07/12/19 00:00 07/12/19 08:11 Fentanyl Patch Check Placement N/A 08/11/19 00:00 1 ea QS [facility]AO Administration Sucralfate 1 gm 07/12/19 09:00 07/12/19 12:13 Carafate Tab PO 08/11/19 08:59 1 gm QID [facility] Administration Venlafaxine HCl 300 mg 07/12/19 09:00 07/12/19 08:11 Effexor Extended Release PO 08/11/19 08:59 300 mg QAM [facility] Administration Zolpidem Tartrate 10 mg 07/11/19 23:34 07/12/19 00:09 Ambien PO 08/10/19 23:33 10 mg HS PRN Administration Sleep Past Medical History Medical History Clotting disorder (Chronic) Fibromyalgia (Chronic) Lupus (Chronic 04/04/14) Pleurisy (Resolved) Pulmonary embolism (Resolved) Serositis (Acute) Systemic lupus (Acute) Past Family History Family History Other No pertinent family history in first degree relatives Past Surgical History Surgical History H/O: hysterectomy (Resolved) Hx of appendectomy (Resolved) Hx of cholecystectomy (Resolved) Social History Smoking Status: Current every day smoker tobacco type: cigarettes Smoking cigarettes per day: 0-2 Do You Dip or Chew Tobacco: No Hx Alcohol Use: No Hx Substance Use: No Physical Exam Vital Signs Last Vital Signs Temp 36.8 C 07/12/19 12:15 Pulse 69 07/12/19 12:15 Resp 18 07/12/19 12:15 BP 149/82 H 07/12/19 12:15 Pulse Ox 93 07/12/19 12:15 Testing Laboratory Results 07/12/19 12:19 07/12/19 12:19 PT 10.9 Seconds (9.0-12.0) 07/11/19 19:33 INR 1.1 (0.9-1.1) 07/11/19 19:33
--- NOTE | 2019-07-12 15:15 | GI REPORT ---
Patient Name: Danuta Rader Procedure Date: 07/12/2019 3:03 PM Date of : 1980 Admit Type: Inpatient Age: 38 Gender: Female Attending MD: Rashawn Rashid MD Procedure: Upper GI endoscopy Providers: Rashawn Rashid MD Referring MD: Barrett Balderas Indications: Epigastric abdominal pain, Hematemesis, Nausea with vomiting Medicines: Propofol total dose 140 mg IV, Lidocaine 80 mg IV Complications: No immediate complications. Estimated Blood Loss: Estimated blood loss: none. Procedure: Pre-Anesthesia Assessment: - Prior to the procedure, a History and Physical was performed, and patient medications, allergies and sensitivities were reviewed. The patient's tolerance of previous anesthesia was reviewed. - The risks and benefits of the procedure and the sedation options and risks were discussed with the patient. All questions were answered and informed consent was obtained. After obtaining informed consent, the endoscope was passed under direct vision. Throughout the procedure, the patient's blood pressure, pulse, and oxygen saturations were monitored continuously. The Endoscope was introduced through the mouth, and advanced to the third part of duodenum. The upper GI endoscopy was accomplished without difficulty. The patient tolerated the procedure well. Findings: The Z-line was regular and was found 40 cm from the incisors. The examined esophagus was normal. The entire examined stomach was normal. The examined duodenum was normal. Impression: - Z-line regular, 40 cm from the incisors. - Normal esophagus. - Normal stomach. - Normal examined duodenum. - No specimens collected. Recommendation: - [facility]. Rashawn Rashid M.D. Rashawn Rashid MD 07/12/2019 3:14:40 PM This report has been signed electronically. Note Initiated On: 07/12/2019 3:03 PM Number of Addenda: 0 I attest to the content of the Intraoperative Record and orders documented therein, exceptions below {[id number]}
--- NOTE | 2019-07-12 15:41 | Consultation Report ---
DATE OF CONSULTATION: 07/12/2019 GASTROINTESTINAL CONSULT REASON FOR EVALUATION: Abdominal pain, nausea, vomiting, hematemesis. HISTORY OF PRESENT ILLNESS: The patient is a 38-year-old with a 2-week history of the above symptoms. She was seen 3 weeks ago at [facility] in [place], underwent an EGD and colonoscopy at that time. She was felt to have a little bit of mild gastritis at that time. Biopsies for celiac disease were negative. H. pylori was also negative. She is on opiate medications for fibromyalgia. She presents with worsening symptoms stating that she has vomited several times some blood. At the time of presentation to the Emergency Room, her hemoglobin was 15.5, electrolytes were normal. Liver tests normal, lipase normal. The patient has had a previous cholecystectomy and a CAT scan was done that showed a small left ovarian cyst, but was otherwise negative other than her previous cholecystectomy, appendectomy and hysterectomy. GI consultation has been requested because of the hematemesis for EGD. PAST MEDICAL HISTORY: Remarkable for fibromyalgia, lupus with lupus anticoagulant, urinary tract infections, hyperthyroidism. She has had a pulmonary embolism in the past. She has had hysterectomy, appendectomy, cholecystectomy. MEDICATIONS: Per list. ALLERGIES: SULFA, DEXAMETHASONE, DULOXETINE, ESCITALOPRAM, LATEX, MORPHINE, AND PREGABALIN. FAMILY HISTORY: Negative. SOCIAL HISTORY: Does not smoke, feels safe at home. REVIEW OF SYSTEMS: Positive for abdominal pain, nausea. PHYSICAL EXAMINATION: GENERAL: The patient is overweight, in no acute distress. VITAL SIGNS: Blood pressure is elevated at 160/113. SKIN: She has multiple bruises on her extremities. ABDOMEN: Nontender. I was unable to palpate internal organs. IMPRESSION AND PLAN: The patient is having abdominal pain, nausea and vomiting. EGD was performed and it was normal. There were no signs of any bleeding or source of blood loss or Sanna-Ortega tear. I am not sure of the source of her symptoms, could be some form of infection or possibly a reaction to one of her medications. All of her laboratories and imaging studies are unremarkable. At this point, I would treat her symptomatically with IV fluid replacement and try to limit opiate medications and advance her diet as tolerated.
--- NOTE | 2019-07-12 15:42 | Anesthesiology Progress Note ---
Date of Service July 12, 2019 Anesthesia Post Procedure Vital Signs Vital Signs: Temp Pulse Pulse Resp BP BP BP 07/12/19 15:28 91 H 18 165/97 H 07/12/19 15:14 93 H 18 153/85 H 07/12/19 14:47 36.8 C 88 18 165/115 H 07/12/19 12:15 36.8 C 69 18 149/82 H 07/12/19 07:57 36.7 C 76 20 142/80 H 07/12/19 07:32 77 07/12/19 03:40 36.8 C 79 18 150/72 H 07/12/19 00:14 36.5 C 85 18 154/95 H 152/102 H 07/11/19 23:00 167/103 H 07/11/19 22:57 07/11/19 22:54 85 20 174/112 H 07/11/19 22:30 174/112 H 07/11/19 22:01 90 20 186/119 H 07/11/19 20:30 89 20 163/109 H 07/11/19 18:30 87 18 159/90 H 07/11/19 18:28 93 H 20 155/87 H 07/11/19 17:17 95 H 20 171/130 H Pulse Ox 07/12/19 15:28 94 07/12/19 15:14 95 07/12/19 14:47 95 07/12/19 12:15 93 07/12/19 07:57 94 07/12/19 07:32 07/12/19 03:40 95 07/12/19 00:14 96 07/11/19 23:00 96 07/11/19 22:57 95 07/11/19 22:54 97 07/11/19 22:30 96 07/11/19 22:01 96 07/11/19 20:30 95 07/11/19 18:30 96 07/11/19 18:28 96 07/11/19 17:17 96 Pain Intensity Abdomen: Pain Intensity: 8 Transfer of Care Handoff Completed per policy Notes Mental Status: alert / awake / arousable and participated in evaluation Patient Amnestic to Procedure: Yes Nausea / Vomiting: adequately controlled Pain: adequately controlled Airway Patency, RR, SpO2: stable & adequate BP & HR: stable & adequate Hydration State: stable & adequate Anesthetic Complications: no major complications apparent
[2019-07-12] MEDS ORDERED: HydrALAZINE HCL 20 MG/ML VIAL IV STA (16:04)
[2019-07-12] MEDS ORDERED: DOCUSATE SODIUM/SENNA 50/8.6MG TAB PO SCH (21:00)
[2019-07-13] MEDS: ONDANSETRON INJ 2 MG/ML 2 ML VIAL IV PRN ×2 (00:13→11:13)
[2019-07-13] MEDS: cefTRIAXone SODIUM 2,000 MG/70 ML BAG IV SCH (00:13)
[2019-07-13] MEDS: CHECK FENTANYL PATCH PLACEMENT SCH ×2 (00:22→08:13)
[2019-07-13] MEDS: HYDROmorphone INJ 1 MG/ML SYRINGE IV PRN ×4 (00:48→12:32)
[2019-07-13] MEDS: LORazepam 1 MG TAB PO PRN ×3 (03:56→12:32)
[2019-07-13] MEDS: LEVOTHYROXINE SODIUM 25 MCG TABLET PO SCH (05:51)
[2019-07-13] MEDS: PANTOprazole 40 MG in SYRINGE 0 ML IV SCH (08:06)
[2019-07-13] MEDS: GABAPENTIN 400 MG CAP PO SCH (08:06)
[2019-07-13] MEDS: SUCRALFATE 1 GM TAB PO SCH ×2 (08:07→12:36)
[2019-07-13] MEDS: VENLAFAXINE HCL XR 150 MG CAPXR PO SCH (08:07)
[2019-07-13] MEDS: DICYCLOMINE HCL 10 MG CAP PO SCH ×2 (08:07→11:07)
[2019-07-13] MEDS: BUMETANIDE 1 MG TAB PO SCH (08:08)
--- NOTE | 2019-07-13 08:18 | Anesthesiology Progress Note ---
Date of Service July 13, 2019 Anesthesia Post Procedure Vital Signs Vital Signs: Temp Pulse Pulse Resp BP BP Pulse Ox 07/13/19 07:40 86 07/13/19 07:31 37.0 C 82 20 143/85 H 95 07/13/19 04:46 88 07/13/19 04:36 37 C 90 18 149/96 H 93 07/13/19 00:08 36.6 C 100 H 18 142/90 H 95 07/12/19 20:44 36.9 C 113 H 18 154/83 H 95 07/12/19 17:01 109 H 07/12/19 15:59 36.8 C 111 H 16 174/110 H 194/121 H 95 07/12/19 15:44 94 H 20 181/101 H 94 07/12/19 15:40 83 07/12/19 15:28 91 H 18 165/97 H 94 07/12/19 15:14 93 H 18 153/85 H 95 07/12/19 14:47 36.8 C 88 18 165/115 H 95 07/12/19 12:15 36.8 C 69 18 149/82 H 93 Pain Intensity Abdomen: Pain Intensity: 8 Notes Mental Status: alert / awake / arousable and participated in evaluation Patient Amnestic to Procedure: Yes Nausea / Vomiting: adequately controlled Pain: adequately controlled Airway Patency, RR, SpO2: stable & adequate BP & HR: stable & adequate Hydration State: stable & adequate Anesthetic Complications: no major complications apparent and Pt Satisfied with anesthetic care
[2019-07-13] MEDS ORDERED: HYDROmorphone INJ 1 MG/ML SYRINGE IV STA (10:01)
[2019-07-13] MEDS ORDERED: OPTIRAY 320 125ml IV PRN (10:29)
--- NOTE | 2019-07-13 10:42 | CT Scan Report ---
CT ANGIOGRAM OF THE CHEST CLINICAL HISTORY: Epigastric and chest pain. Hypercoagulable state. Possible acute pulmonary embolism . COMPARISON STUDY: 07/05/2014 TECHNIQUE: Following the IV administration of 119 mL of Optiray-320, CT angiogram of the thorax was p erformed from the thoracic inlet to the lung bases utilizing the pulmonary embolus protocol. Images a re reviewed in the axial, sagittal, and coronal planes. IV contrast was administered without complica tion. MIP imaging was performed. A dose lowering technique was utilized adhering to the principles o f ALARA. CT DOSE: 1873.03 mGy.cm FINDINGS: No pathologically enlarged axillary mediastinal or hilar lymph nodes were visualized. There was no evidence of thoracic aortic dilatation. There are no findings to indicate thoracic aorti c dissection There were no pulmonary artery filling defects to indicate acute pulmonary embolism. No pleural effusions are visualized. There are very subtle groundglass parenchymal opacities within the superior segment of the right lowe r lobe, likely infectious/inflammatory. IMPRESSION: 1. No evidence of acute pulmonary embolism 2. No evidence of thoracic aortic aneurysm or dissection 3. No evidence of pathologic adenopathy 4. Very subtle groundglass parenchymal opacities within the superior segment of the right lower lobe, likely infectious/inflammatory Electronically signed by: Reilly Hughes M.D. 07/13/2019 10:41 AM
--- NOTE | 2019-07-13 10:45 | CT Scan Report ---
CT ANGIOGRAM OF THE ABDOMEN AND PELVIS CLINICAL HISTORY: Epigastric abdominal pain. COMPARISON STUDY: Abdominal CT scans dated 07/10/2019 and 10/11/2014. TECHNIQUE: Following the IV administration of 119 cc of Optiray 320, CT angiogram of the abdomen and pelvis was performed from the lung bases the proximal femora. Images are reviewed in the axial, sagit tre, and coronal planes. 3-D MIPS images are created and assessed. IV contrast was administered witho ut complication. A dose lowering technique was utilized adhering to the principles of ALARA. FINDINGS: Lower chest: The heart is normal in size and without pericardial effusion. The lung bases are clear. Liver: The contrast-enhanced liver is normal in size, contour, and attenuation. There is minimal cent ral intrahepatic or ductal dilatation. The main portal veins appear patent. Gallbladder: Surgically absent noting clips in the gallbladder fossa. Spleen: Normal in size and attenuation noting heterogeneous arterial phase enhancement. Pancreas: Unremarkable. Adrenal glands: Unremarkable. Kidneys: The contrast enhanced kidneys are normal in size and without hydronephrosis. The kidneys enh ance symmetrically. Abdominal aorta and iliac arteries: The abdominal aorta is normal in course and caliber. The iliac ar teries are widely patent bilaterally. No dissection is seen. Major branches of the abdominal aorta: The celiac trunk, superior mesenteric, and inferior mesenteric arteries are widely patent. There is a replaced right hepatic artery which arises from the superior mesenteric artery. The splenic artery is patent. There are 2 right renal arteries and 3 left renal ar teries. These are widely patent. Bowel: There is mild colonic fecal retention. No bowel obstruction is seen. The appendix is not visu alized. Peritoneum: There is no intraperitoneal free air or abdominal ascites. There is a large fat-containin g umbilical hernia. Lymphadenopathy: None. Pelvic viscera: The bladder is normal as visualized. The uterus is surgically absent. No adnexal lesi on is seen. Left ovarian follicles measure up to 3.3 cm. Skeletal structures: No destructive bony lesions are seen. There is advanced disc space narrowing, en dplate sclerosis, and a large posterior disc osteophyte complex at L5-S1. IMPRESSION: 1. No acute infectious or inflammatory findings are identified in the abdomen or pelvis. 2. Unremarkable CT angiogram of the abdominal aorta and its major branches. Electronically signed by: Abel Aragon M.D. 07/13/2019 10:43 AM
[2019-07-13] MEDS ORDERED: predniSONE 20 MG TAB PO STA (12:03)
--- NOTE | 2019-07-13 15:09 | Discharge Summary ---
Date of Service July 13, 2019 Admission HPI Per Admitting Provider Patient is a 38 years old female with past medical history of lupus, cholecystectomy, hysterectomy, appendectomy, fibromyalgia who presents to the emergency room with complaint of abdominal pain and nausea and vomiting. Patient was in the emergency room yesterday and chief complaint was the same. Patient states that she was seen 2 weeks ago by [facility] gastroenterology and underwent endoscopy which determined that she has a peptic ulcers. Patient has appointment with gastroenterology to moderate 3:45 PM. Patient presumptively has urinary tract infection with 1+ bacteria. It could be considered also nons terile catch. Labs are reviewed: WBCs 12.6, hemoglobin 15.5, hematocrit 44.6 platelets 253, PT 10.9, INR 1.1, sodium 139, potassium 3.4, chloride 107, BUN 18, creatinine 1.13, GFR 61.6, calcium 9.1, AST 13, ALT 20, alkaline phosphatase [address] abdomen and pelvis is done and shows severe small left ovarian cyst measuring 2.5 cm. Otherwise negative past cholecystectomy nonobstructive bowel pattern. Decision was made to admit patient for observation MedSurg telemetry and for better markus pain control. Patient will be seen by gastroenterology [facility] tomorrow Principal Diagnosis Severe epigastric pain, likely muscular strain vs costochondritis Discharge Exam Constitutional WD/WN, vitals as above Eyes PERRL, conjunctivae normal, anicteric sclerae ENMT external ear and nose normal, oropharynx normal Neck trachea midline, no thyromegaly Respiratory normal respiratory effort, lungs clear to auscultation Cardiovascular RRR, no murmur, no edema Gastrointestinal (Abdomen) Inspection/Auscultation: abdomen normal to inspection and normal bowel sounds; abdomen not distended Percussion/Palpation: + abdomen tender (LUQ), + guarding, abdomen soft and normal to percussion; abdomen not rigid, no hepatosplenomegaly, no pulsatile mass and no ascites Musculoskeletal no cyanosis or clubbing, extremities motor strength 5/5 Skin no rashes, warm and dry Neurologic patellar DTR's 2+ bilat, sensation intact and PERRL, EOMI, accommodation nl, no face palsy, no dysarthria Psychiatric A+Ox3, euthymic affect Lymphatic no cervical or axillary lymphadenopathy Discharge Data Allergies Allergy/AdvReac Type Severity Reaction Status Date / Time Sulfa (Sulfonamide Allergy Intermediate LUPUS Verified 07/12/19 14:36 Antibiotics) FLARE UP dexamethasone Allergy Unknown HIVES Verified 07/12/19 14:36 duloxetine Allergy Unknown UNKNOWN Verified 07/12/19 14:36 escitalopram Allergy Unknown UNKNOWN Verified 07/12/19 14:36 latex Allergy Unknown HIVES Verified 07/12/19 14:36 morphine Allergy Unknown local Verified 07/12/19 14:36 reaction at site pregabalin Allergy Unknown UNKNOWN Verified 07/12/19 14:36 Consultations 07/11/19 22:26 ED Decision to Admit Stat 07/12/19 08:19 Consult Health Information Management Routine 07/12/19 11:59 Consult Gastroenterology Routine Procedures Performed Operation Date: 07/12/19 16:45 Actual Procedures p Esophagogastroduodenoscopy - Rashawn Rashid Ordered Studies 07/13/19 09:31 CT angio abdomen pelvis w con Urgent CT angio chest PE protocol Urgent Hospital Course (1) Abdominal pain, LUQ: CMP, CBC, lipase, ESR, CRP normal CT abdomen pelvis on 07/10 and 07/13 with no evidence of pancreatitis, colitis, enteritis or other infection/inflammation h/o cholecystectomy, appendectomy, hysterectomy no bowel obstruction on imaging CT angiogram chest with no evidence of PE or pneumonia CT angiogram of abd/pelvis with no arterial clots, no venous clots, no ischemia no vomiting, no diarrhea EGD 07/12 completely normal, no gastritis or ulcers most likely cause of pain is severe muscle strain, possible costocondritis very tender to light palpation, could have occurred with vomiting episodes prior to admission recommend Bentyl, heat 3x a day, Tylenol can use Oxycodone 5mg q8 PRN for pain, instructed to not take more than prescribed, not to drive follow up with new PCP on 07/22 patient with a lot of psychosocial stressors related to divorce, custody moore would recommend referral to psychiatry and or counseling certainly untreated stress could be playing a role in her abdominal pain (2) Fibromyalgia: Chronic issue. Continue gabapentin 400 mg p.o. 3 times daily, lorazepam 1 mg p.o. 4 times daily as needed, venlafaxine 300 mg p.o. every morning, zolpidem 10 mg p.o. nightly as needed. will arrange for new PCP patient does not currently have a informatics nurse, issues with insurance PCP can help arrange (3) Systemic lupus: describes h/o rash, arthralgia, nephritis also with h/o coagulopathy, 7 spontaneous miscarriages, had hysterectomy due to menorrhagia not on medications for 4 years, does not have a informatics nurse ESR is normal as well as CRP renal function is normal certainly no signs of active lupus which is odd since she has not been medicated for 4 years unsure of this diagnosis, no access to prior records (4) Hypothyroid: continue Synthroid TSH normal Total Time Total Time Spent Total Time Spent (In Minutes): 40 minutes Total Time Includes: Examination of the Patient, Discharge Planning and Medic ation Reconciliation Discharge Plan Discharge Items Patient Disposition: Home - Self-Care Reason For Visit: ABDOMINAL PAIN Discharge Diagnosis: Epigastric pain, chest pain Possible muscle strain, costochondritis Condition on Discharge: Good Goals: pain control with Prednsione, Oxycodone follow up with new PCP, need to be treated for anxiety, stress Activity: Per Instructions section Lifting: Gradually increase as tolerated Bathing: No limitations Exercise/Sports: Gradually increase as tolerated Driving/Machine Use: no driving while taking Ativan and Oxycodone Weightbearing: Full weightbearing Non-emergency contact: Primary Care Provider Call non-emergency contact if: you have any medication questions, your symptoms worsen and your pain is not controlled Follow-up/Referrals: Gaby Moore [Other] - 07/22/19 1:15 pm (Please, follow up at [facility] [place] [facility] with Gaby JACKSON on ThursdayJuly 22 at 1:30 pm (arrive 1:15 pm). She will be your new primary care provider. *The office is located at [address] [place] [address] in [place], next to [address]. If you need to change this appointment, call the office at [phone].) Diet: Regular Addtl Attending Provider Instructions: Medications: - OXYCODONE: take 5mg every 8 hours as needed DO NOT take more than prescribed or more often than prescribed, do not drive after taking - ATIVAN: only take as needed, try to take less than 4 times a day DO NOT take more than prescribed or more often than prescribed, do not drive after taking - PREDNISONE: 40mg a day for 5 days, no need for taper since it is less than 7 days total Epigastric pain, chest pain most logical explanation is severe muscle strain from vomiting, possible costochondritis as we discussed, CT scan of the abdomen on both 07/10 and 07/13 showed no pancreatitis, colitis, enteritis or other infection, inflammation liver enzymes normal, lipase normal, White blood cell count normal, sed rate and C reactive protein negative EGD on 07/12 with normal findings, no gastritis, no peptic ulcers CT angiogram of chest without evidence of pulmonary embolism, no pneumonia CT angiogram of abdomen/pelvis without evidence of arterial or venous clots, no ischemia in gut feel that your pain is multifactorial, combination of musculoskeletal pain and psychosocial factors causing severe stress for your pain, use Tylenol 650mg every 6 hours scheduled use heat to the area for 20 minutes three times a day use Bentyl as prescribed for any abdominal cramping continue to use the Protonix and Carafate for gastritis which is resolving nicely on most recent EGD use Prednisone for 5 more days as anti-inflammatory effect for possible costochondritis DO NOT use ibuprofen or naproxen as this can cause gastritis use the Oxycodone for breakthrough pain, again, do not take more often than prescribed or a larger dose than prescribed recommend follow up with Gaby JACKSON on 07/22/19 which is Thursday recommend that you discuss all of your stressors, you would certainly benefit from counseling/therapy to discuss issues Pending Studies at Discharge: No Stand-Alone Forms: Call Back Authorization, [facility], [facility], [facility] Ana María n Management, Smoking Cessation Medications and DC Order Prescriptions: New prednisone 20 mg tablet 40 mg PO DAILY 5 Days Qty: 10 RF: 0 oxycodone 5 mg tablet 5 mg PO Q8H PRN (Reason: pain) Qty: 20 RF: 0 Continued sucralfate 1 gram tablet 1 g PO QID RF: 0 sennosides-docusate sodium [Senna Plus] 8.6-50 mg tablet 1 tab PO HS RF: 0 gabapentin 400 mg capsule 400 mg PO TID RF: 0 venlafaxine 150 mg capsule,extended release 24hr 300 mg PO QAM RF: 0 levothyroxine 25 mcg tablet 25 mcg PO QAM RF: 0 pantoprazole 40 mg tablet,delayed release (DR/EC) 40 mg PO BID RF: 0 bumetanide 1 mg tablet 1 mg PO QAM RF: 0 ondansetron 4 mg tablet,disintegrating 4 mg PO Q6H PRN (Reason: Nausea) RF: 0 dicyclomine 10 mg capsule 10 mg PO QID RF: 0 zolpidem [Ambien] 10 mg Tablet 10 mg PO HS PRN (Reason: Sleep) RF: 0 lorazepam 1 mg Tablet 1 mg PO QID PRN (Reason: Anxiety) 10 Days Qty: 40 RF: 0 Discontinued naproxen sodium 220 mg Tablet 220 mg PO Q8H PRN (Reason: Pain) RF: 0 Narcan 4 mg/actuation spray,non-aerosol 4 mg INTRANASAL UD RF: 0 Discharge Orders: Discharge Order (Routine); Ordered 07/13/19 Ordered By: Barrett Starr/Other Patient Handouts: Prednisone Oral tablet Admission Data Admit Date/Time: 07/11/19 22:09 Attending Provider: Barrett Balderas Admit Provider: Jay Burk Primary Care Provider: Jerrica Dyer Other Providers: Renny Kidd Brian D. Other Interventions: Discharge Summary Assessment (RN) Last Done: 07/13/19 12:38 DC Date/Time DO NOT enter until pt leaves facility: 07/13/19 13:17
== END 2019-07-13 13:17 | disposition home or self-care (01) ==
LOC: ED 15:32 → 2N 15:32 → SUATTDRO 22:09 → 2N 23:09 → 3W 07-13 10:55
DX: Z79.899 Other long term (current) drug therapy; R10.12 Left upper quadrant pain; F17.210 Nicotine dependence, cigarettes, uncomplicated; M79.7 Fibromyalgia; Z91.040 Latex allergy status; R11.2 Nausea with vomiting, unspecified; K92.0 Hematemesis; Z88.5 Allergy status to narcotic agent; N39.0 Urinary tract infection, site not specified; M32.9 Systemic lupus erythematosus, unspecified; Z88.2 Allergy status to sulfonamides; E03.9 Hypothyroidism, unspecified

== ENCOUNTER 2020-07-18 13:57 | Observation (INO) ==
[2020-07-18] MEDS ORDERED: FAMOTIDINE 20MG IV PUSH 20 MG/5 ML SYR IV STA (15:14)
[2020-07-18] MEDS ORDERED: ONDANSETRON INJ 2 MG/ML 2 ML VIAL IV STA (15:14)
[2020-07-18] MEDS ORDERED: fentaNYL citrate 100 MCG/2 ML VIAL IV ONE (15:14)
[2020-07-18] MEDS ORDERED: PANTOprazole 80 MG in DEXTROSE 5% 100 ML IV ONE (15:14)
--- NOTE | 2020-07-18 15:20 | Emergency Department Note ---
History of Present Illness General Chief complaint: GI Assessment Stated complaint: SEVERE ABD PAIN, VOMITING BLOOD Time Seen by Provider: 07/18/20 15:04 Source: patient History of Present Illness Provider complaint: Abdominal pain and vomiting blood Onset (ago): week(s) Location: abdomen Radiation: other (Chest) Pain Consistency: + constant Maximum Pain Intensity: 8 Quality: + stabbing and + sharp Exacerbated By: + eating Associated symptoms: + nausea/vomiting; no chest pain, no cough, no fever/chills and no shortness of breath This is a 39-year-old female with a history of gastric ulcers presenting with abdominal pain and vomiting blood. The patient states she has had abdominal pain for the past 2 weeks. It radiates into her chest. It is sharp and stabbing and worse after eating. She has had work-up for this including EGD, colonoscopy and CT of the chest and abdomen and pelvis recently. She does state that her EGD showed ulcers in her stomach. She is on multiple medications including Protonix and Carafate. She states that this morning she started vomiting blood. She states it is bright red with some clots. She has not seen any coffee grounds. She had a total of 5 episodes. She denies any melanotic or bloody stools. She denies any fever, chest pain, shortness of breath or cough or cold symptoms or known exposure to COVID-19. Home Medications Medication Instructions Recorded Confirmed Type gabapentin 400 mg PO TID 07/10/19 07/18/20 History levothyroxine 25 mcg PO QAM 07/10/19 07/18/20 History venlafaxine 300 mg PO QAM 07/10/19 07/18/20 History buprenorphine-naloxone 1 tab SUBLINGUAL BID 06/27/20 07/18/20 History furosemide 40 mg PO BID 06/27/20 07/18/20 History aspirin 325 mg PO QAM 07/09/20 07/18/20 History metoprolol tartrate 25 mg PO QAM 07/09/20 07/18/20 History dicyclomine 20 mg tablet 20 mg PO Q6H PRN #120 tab 07/10/20 07/18/20 Rx pantoprazole 40 mg tablet,delayed 40 mg PO BID #60 tab 07/10/20 07/18/20 Rx release sucralfate 100 mg/mL oral 1 g PO QID #420 ml 07/10/20 07/18/20 Rx suspension famotidine 20 mg PO BID 07/18/20 07/18/20 History lorazepam [Ativan] 1 mg PO DAILY PRN 07/18/20 07/18/20 History zolpidem [Ambien] 10 mg PO HS PRN 07/18/20 07/18/20 History Allergies Allergy/AdvReac Type Severity Reaction Status Date / Time Sulfa (Sulfonamide Allergy Intermediate LUPUS Verified 07/18/20 17:09 Antibiotics) FLARE UP dexamethasone Allergy Unknown HIVES Verified 07/18/20 17:09 duloxetine Allergy Unknown UNKNOWN Verified 07/18/20 17:09 escitalopram Allergy Unknown UNKNOWN Verified 07/18/20 17:09 latex Allergy Unknown HIVES Verified 07/18/20 17:09 morphine Allergy Unknown local Verified 07/18/20 17:09 reaction at site pregabalin Allergy Unknown UNKNOWN Verified 07/18/20 17:09 Past Med/Surg History Medical History (Updated 07/18/20 @ 22:23 by Andrey Waggoner MD) Anxiety Bipolar disorder Chronic pain syndrome Depression Fibromyalgia Gastritis History of kidney infection History of lupus anticoagulant disorder History of migraine History of multiple miscarriages History of ovarian cyst History of umbilical hernia Hypertension Hypothyroidism Intractable epigastric abdominal pain Lupus (04/04/14) Lupus nephritis Osteoarthritis Peptic ulcer disease Pleuritis (09/17/14) history of Post traumatic stress disorder Pulmonary embolism history of Surgical History H/O: hysterectomy History of tonsillectomy and adenoidectomy Hx of appendectomy Hx of cholecystectomy Family History (Updated 07/18/20 @ 19:40 by Hung Gonzalez) Sister SLE (systemic lupus erythematosus) Family/Other SLE (systemic lupus erythematosus) maternal side Social History (Updated 07/18/20 @ 19:43 by Hung Gonzalez) Smoking Status: Former smoker Tobacco Type: Cigarettes Age Started Using Tobacco: 23; Age Quit Using Tobacco: 39; Smoking End Date: Apr 2020; Second Hand Exposure: No; Hx Alcohol Use: No Hx Substance Use: No Preferred Language: Hungarian Communication Ability: Effective 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 and A total of 10 systems reviewed and were otherwise negative Physical Exam Vital Signs Vital Signs - 24 hr 07/18/20 13:59 07/18/20 15:58 07/18/20 17:00 Temperature 36.8 C Temperature Source Oral Pulse Rate 78 Pulse Rate [Apical] 72 76 Pulse Rhythm [Apical] Regular Respiratory Rate 18 18 18 Respiratory Effort / Characteristics Non-Labored Spontaneous Respiratory Depth Normal Respiratory Pattern Regular Blood Pressure 200/104 H Blood Pressure [Right Arm] 216/103 H 186/128 H Blood Pressure Mean 136 Blood Pressure Mean [Right Arm] 140 147 Pulse Oximetry 100 98 97 Oxygen Delivery Method Room Air Room Air Room Air Sepsis Recent Fever Within 48 Hours No Sepsis New/Unexplained Change in Mental Status No Sepsis Action Taken by Nursing No Action Required 07/18/20 18:00 Temperature Temperature Source Pulse Rate Pulse Rate [Apical] 78 Pulse Rhythm [Apical] Respiratory Rate 19 Respiratory Effort / Characteristics Respiratory Depth Respiratory Pattern Blood Pressure Blood Pressure [Right Arm] 196/114 H Blood Pressure Mean Blood Pressure Mean [Right Arm] 141 Pulse Oximetry 96 Oxygen Delivery Method Room Air Sepsis Recent Fever Within 48 Hours Sepsis New/Unexplained Change in Mental Status Sepsis Action Taken by Nursing Constitutional: Vital signs reviewed. Eyes: Pupils are equal round reactive to light. Conjunctiva are noninjected. ENT: Pharynx is clear without erythema or exudate. Mucous membranes are moist. Neck supple without meningeal signs. Respiratory: Clear to auscultation bilaterally. Breath sounds are equal bilaterally. Cardiovascular: Regular rate and rhythm. No rubs or gallops. GI: Soft, nondistended with tenderness in the epigastric region. No guarding. Bowel sounds are present. Rectal: Guaiac negative light brown stool. Musculoskeletal: No peripheral edema. No lower extremity tenderness. Integumentary: No cyanosis. or jaundice. Neurological: The patient is awake and alert. No focal deficits. Psychiatric: Normal affect. Not anxious appearing. Course Administered Medications Buprenorphine/Naloxone (Buprenorphine/Naloxone 8/2 Mg Tab) 1 tab SL BID THAO Stop: 08/17/20 21:59 Last Admin: 07/18/20 22:15 Dose: 1 tab Documented by: [id number] Gabapentin (Gabapentin 400 Mg Cap) 400 mg PO TID [facility] Stop: 08/17/20 21:59 Last Admin: 07/18/20 22:13 Dose: 400 mg Documented by: [id number] Hydralazine HCl (Hydralazine Hcl 20 Mg/Ml Vial) 10 mg IV Q8H PRN PRN Reason: systolic BP >190 Stop: 08/17/20 21:44 Last Admin: 07/18/20 22:06 Dose: 10 mg Documented by: [id number] Hydromorphone HCl (Hydromorphone Inj 0.5 Mg/0.5 Ml Syr) 0.25 mg IV Q3H PRN PRN Reason: Pain Stop: 08/01/20 19:36 Last Admin: 07/18/20 19:54 Dose: 0.25 mg Documented by: [id number] Pantoprazole Sodium 40 mg/ (Dextrose) 100 mls @ 20 mls/hr IV Q5H [facility] Stop: 08/17/20 19:44 Last Admin: 07/18/20 22:12 Dose: 8 mg/hr, 20 mls/hr Documented by: [id number] Potassium Chloride/Dextrose/Sod Cl (D5nss + 20meq Kcl) 20 meq in 1,000 mls @ 100 mls/hr IV .Q10H [facility] Stop: 08/17/20 21:14 Last Admin: 07/18/20 22:10 Dose: 100 mls/hr Documented by: [id number] Metoclopramide HCl (Metoclopramide Hcl Inj 5 Mg/Ml 2 Ml Vial) 5 mg IV Q6H [facility] Stop: 08/17/20 19:44 Last Admin: 07/18/20 19:54 Dose: 5 mg Documented by: [id number] Sucralfate (Sucralfate 1 Gm/10 Ml Udc) 1 gm PO ACHS [facility] Stop: 08/17/20 21:59 Last Admin: 07/18/20 22:12 Dose: 1 gm Documented by: [id number] Discontinued Medications Fentanyl Citrate (Fentanyl Citrate 100 Mcg/2 Ml Vial) 50 mcg IV NOW ONE Stop: 07/18/20 15:15 Last Admin: 07/18/20 16:09 Dose: 50 mcg Documented by: [id number] Fentanyl Citrate (Fentanyl Citrate 100 Mcg/2 Ml Vial) 50 mcg IV NOW STA Stop: 07/18/20 17:28 Last Admin: 07/18/20 17:31 Dose: 50 mcg Documented by: [id number] Pantoprazole Sodium 80 mg/ (Dextrose) 100 mls @ 400 mls/hr IV NOW ONE Stop: 07/18/20 15:28 Last Infusion: 07/18/20 16:40 Dose: 0 mls/hr Documented by: [id number] Admin: 07/18/20 16:20 Dose: 400 mls/hr Documented by: [id number] Famotidine (Pepcid 20mg Iv Push) 20 mg in 5 mls @ 2.5 mls/min IV NOW STA Stop: 07/18/20 15:15 Last Admin: 07/18/20 16:09 Dose: 2.5 mls/min Documented by: [id number] Ondansetron HCl (Ondansetron Inj 2 Mg/Ml 2 Ml Vial) 4 mg IV ONE STA Stop: 07/18/20 15:15 Last Admin: 07/18/20 16:09 Dose: 4 mg Documented by: [id number] Medical Decision Making Differential Diagnosis Peptic ulcer disease, GI bleed, anemia, gastroparesis, pancreatitis, bowel perforation Medical Records Attestation: I reviewed the patient's medical records. The patient has been seen for abdominal pain and chest pain last month and had a work-up including CTA of the chest and CT of the abdomen pelvis. She also had a EGD and colonoscopy on July 10. The EGD showed the following: The examined esophagus was normal. A medium amount of food (residue) was found in the gastric fundus. Diffuse severe inflammation characterized by erythema, serpentine ulcerations and shallow ulcerations was found in the stomach. Biopsies were taken with a cold forceps for Helicobacter pylori testing. Estimated blood loss: none. The duodenal bulb and second portion of the duodenum were normal. She was admitted in June of last year for epigastric pain. She had a EGD at that time which did not show any signs of ulceration. Home Medications Current Medication List: was personally reviewed by me Laboratory Data Attestation: I reviewed the patient's lab results. Result diagrams: 07/18/20 15:53 07/18/20 15:53 Lab Results 07/18/20 07/18/20 07/18/20 Range/Units 15:53 15:53 15:53 WBC 7.69 (4.8-10.8) K/uL RBC 4.89 (4.2-5.4) M/uL Hgb 15.2 (12.0-16.0) g/dL Hct 42.3 (37-47) % MCV 86.5 (80-100) fL MCH 31.1 (25-34) pg MCHC 35.9 (32-36) g/dL RDW Std Deviation 39.8 (36.4-46.3) fL RDW Coeff of Meg 12.6 (11.5-14.5) % Plt Count 232 (130-400) K/uL MPV 10.7 H (7.4-10.4) fL Immature Gran % (Auto) 0.1 % Neut % (Auto) 76.2 % Lymph % (Auto) 18.9 % Nicholas % (Auto) 4.0 % Eos % (Auto) 0.5 % Baso % (Auto) 0.3 % Neut # (Auto) 5.86 (1.4-6.5) K/uL Lymph # (Auto) 1.45 (1.2-3.4) K/uL Nicholas # (Auto) 0.31 (0.11-0.59) K/uL Eos # (Auto) 0.04 (0-0.5) K/uL Baso # (Auto) 0.02 (0-0.2) K/uL Immature Gran # (Auto) 0.01 (0.00-0.02) K/uL ESR (0-21) mm/hr PT (9.0-12.0) Seconds INR (0.9-1.1) APTT (21.0-31.0) Seconds PTT Ratio Sodium 142 (136-145) mmol/L Potassium 3.7 (3.5-5.1) mmol/L Chloride 111 H (98-107) mmol/L Carbon Dioxide 23 (21-32) mmol/L Anion Gap 8.0 (3-11) BUN 12 (7-18) mg/dl Creatinine 0.91 (0.6-1.2) mg/dl Est Cr Clr Drug Dosing 107.6 ml/min Est GFR ( Amer) 92.1 Est GFR (Non-Af Amer) 79.5 BUN/Creatinine Ratio 13.4 (10-20) Glucose 101 H (70-99) mg/dl Calcium 9.2 (8.5-10.1) mg/dl Total Bilirubin 0.3 (0.2-1) mg/dl AST 17 (15-37) U/L ALT 23 (12-78) U/L Alkaline Phosphatase 76 (45-117) U/L C-Reactive Protein 0.61 H (0-0.29) mg/dl Total Protein 7.9 (6.4-8.2) gm/dl Albumin 4.0 (3.4-5.0) gm/dl Globulin 3.9 (2.5-4.0) gm/dl Albumin/Globulin Ratio 1.0 (0.9-2) Lipase 33 L (73-393) U/L Random Cortisol mcg/dl Urine Color Urine Appearance (Clear) Urine pH (4.5-7.5) Ur Specific [place] (1.000-1.030) Urine Protein (Negative) Urine Glucose (UA) (Negative) Urine Ketones (Negative) Urine Blood (Negative) Urine Nitrite (Negative) Urine Bilirubin (Negative) Urine Urobilinogen (Negative) Ur Leukocyte Esterase (Negative) Urine WBC (Auto) (0-5) /hpf Urine RBC (Auto) (0-4) /hpf U Hyaline Cast (Auto) (0-5) /lpf U Epithel Cells (Auto) (0-5) /lpf Urine Bacteria (Auto) (Negative) Urine Test (Negative) SARS-CoV-2 Ag (Rapid) (Negative) Blood Type O Negative Antibody Screen NEGATIVE 07/18/20 07/18/20 07/18/20 Range/Units 15:53 15:53 15:53 WBC (4.8-10.8) K/uL RBC (4.2-5.4) M/uL Hgb (12.0-16.0) g/dL Hct (37-47) % MCV (80-100) fL MCH (25-34) pg MCHC (32-36) g/dL RDW Std Deviation (36.4-46.3) fL RDW Coeff of Meg (11.5-14.5) % Plt Count (130-400) K/uL MPV (7.4-10.4) fL Immature Gran % (Auto) % Neut % (Auto) % Lymph % (Auto) % Nicholas % (Auto) % Eos % (Auto) % Baso % (Auto) % Neut # (Auto) (1.4-6.5) K/uL Lymph # (Auto) (1.2-3.4) K/uL Nicholas # (Auto) (0.11-0.59) K/uL Eos # (Auto) (0-0.5) K/uL Baso # (Auto) (0-0.2) K/uL Immature Gran # (Auto) (0.00-0.02) K/uL ESR 6 (0-21) mm/hr PT 11.5 (9.0-12.0) Seconds INR 1.1 (0.9-1.1) APTT 29.9 (21.0-31.0) Seconds PTT Ratio 1.1 Sodium (136-145) mmol/L Potassium (3.5-5.1) mmol/L Chloride (98-107) mmol/L Carbon Dioxide (21-32) mmol/L Anion Gap (3-11) BUN (7-18) mg/dl Creatinine (0.6-1.2) mg/dl Est Cr Clr Drug Dosing ml/min Est GFR ( Amer) Est GFR (Non-Af Amer) BUN/Creatinine Ratio (10-20) Glucose (70-99) mg/dl Calcium (8.5-10.1) mg/dl Total Bilirubin (0.2-1) mg/dl AST (15-37) U/L ALT (12-78) U/L Alkaline Phosphatase (45-117) U/L C-Reactive Protein (0-0.29) mg/dl Total Protein (6.4-8.2) gm/dl Albumin (3.4-5.0) gm/dl Globulin (2.5-4.0) gm/dl Albumin/Globulin Ratio (0.9-2) Lipase (73-393) U/L Random Cortisol 6.99 mcg/dl Urine Color Urine Appearance (Clear) Urine pH (4.5-7.5) Ur Specific [place] (1.000-1.030) Urine Protein (Negative) Urine Glucose (UA) (Negative) Urine Ketones (Negative) Urine Blood (Negative) Urine Nitrite (Negative) Urine Bilirubin (Negative) Urine Urobilinogen (Negative) Ur Leukocyte Esterase (Negative) Urine WBC (Auto) (0-5) /hpf Urine RBC (Auto) (0-4) /hpf U Hyaline Cast (Auto) (0-5) /lpf U Epithel Cells (Auto) (0-5) /lpf Urine Bacteria (Auto) (Negative) Urine Test (Negative) SARS-CoV-2 Ag (Rapid) (Negative) Blood Type Antibody Screen 07/18/20 07/18/20 07/18/20 Range/Units 15:53 16:20 16:20 WBC (4.8-10.8) K/uL RBC (4.2-5.4) M/uL Hgb (12.0-16.0) g/dL Hct (37-47) % MCV (80-100) fL MCH (25-34) pg MCHC (32-36) g/dL RDW Std Deviation (36.4-46.3) fL RDW Coeff of Meg (11.5-14.5) % Plt Count (130-400) K/uL MPV (7.4-10.4) fL Immature Gran % (Auto) % Neut % (Auto) % Lymph % (Auto) % Nicholas % (Auto) % Eos % (Auto) % Baso % (Auto) % Neut # (Auto) (1.4-6.5) K/uL Lymph # (Auto) (1.2-3.4) K/uL Nicholas # (Auto) (0.11-0.59) K/uL Eos # (Auto) (0-0.5) K/uL Baso # (Auto) (0-0.2) K/uL Immature Gran # (Auto) (0.00-0.02) K/uL ESR (0-21) mm/hr PT (9.0-12.0) Seconds INR (0.9-1.1) APTT (21.0-31.0) Seconds PTT Ratio Sodium (136-145) mmol/L Potassium (3.5-5.1) mmol/L Chloride (98-107) mmol/L Carbon Dioxide (21-32) mmol/L Anion Gap (3-11) BUN (7-18) mg/dl Creatinine (0.6-1.2) mg/dl Est Cr Clr Drug Dosing ml/min Est GFR ( Amer) Est GFR (Non-Af Amer) BUN/Creatinine Ratio (10-20) Glucose (70-99) mg/dl Calcium (8.5-10.1) mg/dl Total Bilirubin (0.2-1) mg/dl AST (15-37) U/L ALT (12-78) U/L Alkaline Phosphatase (45-117) U/L C-Reactive Protein Cancelled (0-0.29) mg/dl Total Protein (6.4-8.2) gm/dl Albumin (3.4-5.0) gm/dl Globulin (2.5-4.0) gm/dl Albumin/Globulin Ratio (0.9-2) Lipase (73-393) U/L Random Cortisol mcg/dl Urine Color Yellow Urine Appearance Clear (Clear) Urine pH 6.0 (4.5-7.5) Ur Specific [place] 1.005 (1.000-1.030) Urine Protein Negative (Negative) Urine Glucose (UA) Negative (Negative) Urine Ketones Negative (Negative) Urine Blood Trace H (Negative) Urine Nitrite Negative (Negative) Urine Bilirubin Negative (Negative) Urine Urobilinogen Negative (Negative) Ur Leukocyte Esterase Negative (Negative) Urine WBC (Auto) 0 (0-5) /hpf Urine RBC (Auto) 0-4 (0-4) /hpf U Hyaline Cast (Auto) 1-5 (0-5) /lpf U Epithel Cells (Auto) 0-5 (0-5) /lpf Urine Bacteria (Auto) Negative (Negative) Urine Test Negative (Negative) SARS-CoV-2 Ag (Rapid) (Negative) Blood Type Antibody Screen 07/18/20 Range/Units 18:17 WBC (4.8-10.8) K/uL RBC (4.2-5.4) M/uL Hgb (12.0-16.0) g/dL Hct (37-47) % MCV (80-100) fL MCH (25-34) pg MCHC (32-36) g/dL RDW Std Deviation (36.4-46.3) fL RDW Coeff of Meg (11.5-14.5) % Plt Count (130-400) K/uL MPV (7.4-10.4) fL Immature Gran % (Auto) % Neut % (Auto) % Lymph % (Auto) % Nicholas % (Auto) % Eos % (Auto) % Baso % (Auto) % Neut # (Auto) (1.4-6.5) K/uL Lymph # (Auto) (1.2-3.4) K/uL Nicholas # (Auto) (0.11-0.59) K/uL Eos # (Auto) (0-0.5) K/uL Baso # (Auto) (0-0.2) K/uL Immature Gran # (Auto) (0.00-0.02) K/uL ESR (0-21) mm/hr PT (9.0-12.0) Seconds INR (0.9-1.1) APTT (21.0-31.0) Seconds PTT Ratio Sodium (136-145) mmol/L Potassium (3.5-5.1) mmol/L Chloride (98-107) mmol/L Carbon Dioxide (21-32) mmol/L Anion Gap (3-11) BUN (7-18) mg/dl Creatinine (0.6-1.2) mg/dl Est Cr Clr Drug Dosing ml/min Est GFR ( Amer) Est GFR (Non-Af Amer) BUN/Creatinine Ratio (10-20) Glucose (70-99) mg/dl Calcium (8.5-10.1) mg/dl Total Bilirubin (0.2-1) mg/dl AST (15-37) U/L ALT (12-78) U/L Alkaline Phosphatase (45-117) U/L C-Reactive Protein (0-0.29) mg/dl Total Protein (6.4-8.2) gm/dl Albumin (3.4-5.0) gm/dl Globulin (2.5-4.0) gm/dl Albumin/Globulin Ratio (0.9-2) Lipase (73-393) U/L Random Cortisol mcg/dl Urine Color Urine Appearance (Clear) Urine pH (4.5-7.5) Ur Specific [place] (1.000-1.030) Urine Protein (Negative) Urine Glucose (UA) (Negative) Urine Ketones (Negative) Urine Blood (Negative) Urine Nitrite (Negative) Urine Bilirubin (Negative) Urine Urobilinogen (Negative) Ur Leukocyte Esterase (Negative) Urine WBC (Auto) (0-5) /hpf Urine RBC (Auto) (0-4) /hpf U Hyaline Cast (Auto) (0-5) /lpf U Epithel Cells (Auto) (0-5) /lpf Urine Bacteria (Auto) (Negative) Urine Test (Negative) SARS-CoV-2 Ag (Rapid) Negative (Negative) Blood Type Antibody Screen Imaging Data Radiologist's Impression: PA CHEST WITH ABDOMINAL SERIES CLINICAL HISTORY: Epigastric abdominal pain. FINDINGS: A PA chest radiograph is compared to study chest x-ray and chest CT 06/27/2020. The cardiomediastinal silhouette is unremarkable. Mild elevation of the right hemidiaphragm is similar to previous. The lungs and pleural spaces are clear. No pneumothorax is seen. The bony thorax is grossly intact. Supine and erect abdominal radiographs are correlated with abdominal CT dated 06/29/2020. Cholecystectomy clips are seen in the right upper quadrant. There is a nonobstructed abdominal bowel gas pattern. Mild to moderate fecal retention is noted in the right colon. No evidence of intraperitoneal free air is seen. There are no abnormal abdominal calcifications. The lumbosacral spine and bony pelvis appear intact. IMPRESSION: 1. No active disease in the chest. 2. Nonobstructed abdominal bowel gas pattern. ACT 112: Negative or not required by law. Electronically signed by: Abel Aragon M.D. 07/18/2020 4:41 PM ECG Data Attestation: I personally reviewed and interpreted this ECG as follows: Indication: + abdominal pain Rate (beats per minute): 64 Rhythm: + normal sinus ECG [place]: + Normal ECG ST segments: no ST elevation ECG Findings: no PVCs Comparison ECG Date: from (June 29, 2020) Change: no significant change MDM Narrative I did evaluate the patient as noted above. The patient is presenting with hematemesis and epigastric pain. She has a known history of ulcers on EGD performed just last month. IV access was established. I did treat her with IV Protonix. She was also given IV fentanyl and Zofran. I did place an order for continuous cardiac monitoring. The monitor showed Normal sinus rhythm at a rate of 63 bpm. I did order and personally review the patient's 12-lead EKG as described above. She has no acute ischemic changes. I did order and personally reviewed the images of the patient's chest/Abdominal x-ray as described above. There is no evidence of acute cardiopulmonary process or bowel obstruction or free air. I did order and review the patient's blood work as noted in the electronic medical record. She is not anemic. Her white blood cell count is not elevated. Electrolytes are unremarkable.I did reassess the patient. I did discuss the test results with her. She is requesting more pain medication and was given 50 mcg of fentanyl IV. She will be hospitalized for further evaluation and care. I did discuss case with the hospitalist and welfare case worker. Impression & Plan Hematemesis, Abdominal pain, epigastric, Peptic ulcer disease Discharge Plan Visit Data Chief Complaint: GI Assessment Stated Complaint: SEVERE ABD PAIN, VOMITING BLOOD ED Provider: Andrey Waggoner Discharge Problem: Hematemesis, Abdominal pain, epigastric, Peptic ulcer disease Patient Disposition: Admitted As Inpatient Discharge Instructions Interventions: ED Discharge Assessment Last Done: 07/18/20 20:30
[2020-07-18 16:17] LABS: Basophils # (auto) 0.02 K/uL (0-0.2); Basophils % (auto) 0.3 %; Eosinophils # (auto) 0.04 K/uL (0-0.5); Eosinophils % (auto) 0.5 %; Hematocrit (blood only) 42.3 % (37-47); Hemoglobin 15.2 g/dL (12.0-16.0); Immature Granulocytes # (auto) 0.01 K/uL (0.00-0.02); Immature Granulocytes % (auto) 0.1 %; Lymphocytes # (auto) 1.45 K/uL (1.2-3.4); Lymphocytes % (auto) 18.9 %; Mean Corpuscular Hemoglobin 31.1 pg (25-34); Mean Corpuscular Hgb Conc 35.9 g/dL (32-36); Mean Corpuscular Volume 86.5 fL (80-100); Mean Platelet Volume 10.7 fL (7.4-10.4); Monocytes # (auto) 0.31 K/uL (0.11-0.59); Neutrophils # (auto) 5.86 K/uL (1.4-6.5); Neutrophils % (auto) 76.2 %; Platelet Count 232 K/uL (130-400); RDW Coefficient of Variation 12.6 % (11.5-14.5); RDW Standard Deviation 39.8 fL (36.4-46.3); Red Blood Count 4.89 M/uL (4.2-5.4); White Blood Count 7.69 K/uL (4.8-10.8)
[2020-07-18 16:28] LABS: INR 1.1 (0.9-1.1); Partial Thromboplastin Ratio 1.1; Partial Thromboplastin Time 29.9 Seconds (21.0-31.0); Prothrombin Time 11.5 Seconds (9.0-12.0)
[2020-07-18 16:33] LABS: BUN Creatinine Ratio 13.4 (10-20); Calcium 9.2 mg/dl (8.5-10.1); Creatinine Clr Calc Pharmacy 107.6 ml/min; Est GFR (African American) 92.1; Est GFR (Non-African American) 79.5; Potassium 3.7 mmol/L (3.5-5.1)
[2020-07-18 16:34] LABS: Appearance Urine Clear (Clear); Bacteria Urine Automated Negative (Negative); Bilirubin Urine Negative (Negative); Blood Urine Trace (Negative); Color Urine Yellow; Epithelial Cell Urine Auto 0-5 /lpf (0-5); Glucose Urine UA Negative (Negative); Ketones Urine Negative (Negative); Leukocyte Esterase Urine Negative (Negative); Nitrite Urine Negative (Negative); Protein Urine Negative (Negative); RBC Urine Automated 0-4 /hpf (0-4); Specific Gravity Urine 1.005 (1.000-1.030); Urobilinogen Urine Negative (Negative); WBC Urine Automated 0 /hpf (0-5)
[2020-07-18 16:36] LABS: Bilirubin,Total 0.3 mg/dl (0.2-1); Globulin 3.9 gm/dl (2.5-4.0); Total Protein 7.9 gm/dl (6.4-8.2)
--- NOTE | 2020-07-18 16:43 | XRay Report ---
PA CHEST WITH ABDOMINAL SERIES CLINICAL HISTORY: Epigastric abdominal pain. FINDINGS: A PA chest radiograph is compared to study chest x-ray and chest CT 06/27/2020. The cardiomediastinal silhouette is unremarkable. Mild elevation of the right hemidiaphragm is similar to previous. The jerry ngs and pleural spaces are clear. No pneumothorax is seen. The bony thorax is grossly intact. Supine and erect abdominal radiographs are correlated with abdominal CT dated 06/29/2020. Cholecystec monique clips are seen in the right upper quadrant. There is a nonobstructed abdominal bowel gas pattern . Mild to moderate fecal retention is noted in the right colon. No evidence of intraperitoneal free a ir is seen. There are no abnormal abdominal calcifications. The lumbosacral spine and bony pelvis angelo ear intact. IMPRESSION: 1. No active disease in the chest. 2. Nonobstructed abdominal bowel gas pattern. ACT 112: Negative or not required by law. Electronically signed by: Abel Aragon M.D. 07/18/2020 4:41 PM
[2020-07-18 17:12] LABS: Pregnancy Test, Urine Negative (Negative)
--- NOTE | 2020-07-18 17:12 | Electrocardiogram Report ---
Test Reason : Blood Pressure : / mmHG Vent. Rate : 064 BPM Atrial Rate : 064 BPM P-R Int : 144 ms QRS Dur : 090 ms QT Int : 442 ms P-R-T Axes : 032 021 034 degrees QTc Int : 455 ms Normal sinus rhythm with sinus arrhythmia Normal ECG When compared with ECG of 29-JUN-2020 08:26, No significant change was found Confirmed by Kd Mayers ([id number]) on 07/18/2020 5:11:47 PM Referred By: REFERRED SELF Confirmed By:Flavio Mayers
[2020-07-18] MEDS ORDERED: fentaNYL citrate 100 MCG/2 ML VIAL IV STA (17:27)
--- NOTE | 2020-07-18 18:50 | History & Physical Report ---
Date of Service July 18, 2020 Assessment & Plan (1) Hematemesis: suspect noam-kathia tear from retching/forceful recurrent vomiting. could be blood from recently dx ulcers in June as well. H/H stable. no hematemesis since arrival. keep NPO. IVF. IV PPI drip. carafate qid. will ask Dr Washington from [facility] to see in the am. (2) Abdominal pain: acute/chronic. well-documented intermittent yet long-standing upper abdominal pain. present for 4-6 weeks prompting the EGD in 06/2020. extensive w/u for this at multiple hospitals over the years including CTs, CTAs, blood work, EGDs, colonoscopies, etc. Ongoing issues with PUD could be culprit but odd it would not be responding to PPI + carafate - both of which she takes faithfully. Perhaps the daily aspirin is not allowing ulcers to heal. She may have gastroparesis based on EGD in June but that should not cause the degree of pain she has. I checked a random cortisol and it was relatively low at 6 - will perform cosyntropin stim test in am to be complete to r/o adrenal insuff contributing to chronic symptoms. in light of long-standing PUD will also check gastrin level. morphine prn pain in addition to PPI drip + carafate. (3) History of lupus anticoagulant disorder: resulting in multiple miscarriages 20 15-20 years ago along with VTE event. taking 325mg of aspirin chronically for this ? uncertain if aspirin will protect her and I believe it is making her PUD worse. hold aspirin. (4) History of lupus: no contact with rheumatology in 4+ years. sed rate / crp checked tonight -- both very normal. u/a bland - no signs of lupus nephritis. no other obvious features on exam of active SLE. CT chest/abd/pelvis in June without findings to suggest active SLE. (5) Gastric ulcer: see above PPI carafate (6) Chronic pain syndrome: managed at Suboxone clinic in [place] PDMP substantiates this suspect she had underlying misuse/dependence on narcotics in the past leading to the suboxone she was very vague about why she took narcotics previously - did mention at one point "my lupus" (7) Hypothyroidism: TSH 07/06 wnl cont synthroid (8) Fibromyalgia: noted (9) HTN (hypertension): marked elevation upon admission - much like past admissions. make her metoprolol IV while NPO. hydralazine IV prn needs better control consider renal artery dopplers to r/o fibromuscular dysplasia of renal arteries History of Present Illness Chief Complaint: upper abdominal pain Primary Care Provider: NO PCP 39yo female with h/o unprovoked PE in 2005, multiple miscarriages later found to be due to lupus anticoagulant, SLE (no f/u with rheumatology in 4+ years), hypothyroidism, and chronic pain syndrome on suboxone who presents with ongoing upper abdominal pain and hematemesis. Patient states that she had multiple episodes of retching and vomiting this am. During one of the episodes she had a small amount of bright red blood and old, dark blood with clots as well. Patient was seen in the [facility] office on 07/02/20 due to a several-week history of RUQ and epigastric abdominal pain. This was followed by EGD and colonoscopy by Dr Washington on 07/10/20. EGD was notable for multiple gastric ulcerations as well as food residue concerning for gastroparesis. She was scheduled for gastric emptying study on 07/25/20. Biopsies were negative for H. Pylori. Danuta states that the pain is worsened by eating. Nothing makes the pain better. The pain is constant, burning in quality, and she also says it feels like a "bunch of knives in my stomach." Pain is better with laying supine. The upper abdominal pain has been present for a long period of time. Had EGD done at [facility] in [facility] several years ago showing PUD. She went about 1 year with no abdominal pain then developed the pain once again in May/June. Denies diarrhea, melena or BRBPR. Denies alcohol use. Does take 325mg aspirin daily for her h/o lupus anticoagulant. Only took systemic anticoagulation for 6 months following her PE event in the early . With respect to her suboxone she states she goes to a clinic in [place] for this. She previously used prescription narcotics for chronic pain prior. She attributes her pain to her lupus. Allergies Allergy/AdvReac Type Severity Reaction Status Date / Time Sulfa (Sulfonamide Allergy Intermediate LUPUS Verified 07/18/20 17:09 Antibiotics) FLARE UP dexamethasone Allergy Unknown HIVES Verified 07/18/20 17:09 duloxetine Allergy Unknown UNKNOWN Verified 07/18/20 17:09 escitalopram Allergy Unknown UNKNOWN Verified 07/18/20 17:09 latex Allergy Unknown HIVES Verified 07/18/20 17:09 morphine Allergy Unknown local Verified 07/18/20 17:09 reaction at site pregabalin Allergy Unknown UNKNOWN Verified 07/18/20 17:09 Home Medications Medication Instructions Recorded Confirmed Type gabapentin 400 mg PO TID 07/10/19 07/18/20 History levothyroxine 25 mcg PO QAM 07/10/19 07/18/20 History venlafaxine 300 mg PO QAM 07/10/19 07/18/20 History buprenorphine-naloxone 1 tab SUBLINGUAL BID 06/27/20 07/18/20 History furosemide 40 mg PO BID 06/27/20 07/18/20 History aspirin 325 mg PO QAM 07/09/20 07/18/20 History metoprolol tartrate 25 mg PO QAM 07/09/20 07/18/20 History dicyclomine 20 mg tablet 20 mg PO Q6H PRN #120 tab 07/10/20 07/18/20 Rx pantoprazole 40 mg tablet,delayed 40 mg PO BID #60 tab 07/10/20 07/18/20 Rx release sucralfate 100 mg/mL oral 1 g PO QID #420 ml 07/10/20 07/18/20 Rx suspension famotidine 20 mg PO BID 07/18/20 07/18/20 History lorazepam [Ativan] 1 mg PO DAILY PRN 07/18/20 07/18/20 History zolpidem [Ambien] 10 mg PO HS PRN 07/18/20 07/18/20 History Past Med/Surg History Medical History (Updated 07/18/20 @ 22:23 by Andrey Waggoner MD) Anxiety Bipolar disorder Chronic pain syndrome Depression Fibromyalgia Gastritis History of kidney infection History of lupus anticoagulant disorder History of migraine History of multiple miscarriages History of ovarian cyst History of umbilical hernia Hypertension Hypothyroidism Intractable epigastric abdominal pain Lupus (04/04/14) Lupus nephritis Osteoarthritis Peptic ulcer disease Pleuritis (09/17/14) history of Post traumatic stress disorder Pulmonary embolism history of Surgical History H/O: hysterectomy History of tonsillectomy and adenoidectomy Hx of appendectomy Hx of cholecystectomy Family History (Updated 07/18/20 @ 19:40 by Hung Gonzalez) Sister SLE (systemic lupus erythematosus) Family/Other SLE (systemic lupus erythematosus) maternal side Social History (Updated 07/18/20 @ 19:43 by Hung Gonzalez) Smoking Status: Former smoker Tobacco Type: Cigarettes Age Started Using Tobacco: 23; Age Quit Using Tobacco: 39; Smoking End Date: Apr 2020; Second Hand Exposure: No; Hx Alcohol Use: No Hx Substance Use: No Preferred Language: Belizean Communication Ability: Effective Industrial Editor Required: No Beliefs That Will Affect Care: None marital status: Single Current Living Situation: Significant Other Current Living Situation Comment: [place] current occupational status: employed current occupation: works at [employer] ex[employer] How many Children do You have: 2 Other Information That Helps Us Care for You: No Feels Safe at Home: Yes Safety Concerns: Feels Safe At This Time Assistive Devices: None Review of Systems Constitutional: + anorexia (can drink fluids but very little solids) and + weight loss (10+ pounds); no fever and no chills Eyes: no worsening vision Ear, Nose, Mouth, Throat: no nasal congestion, no sore throat and no dysphagia no loss of taste or smell Respiratory: no cough, no dyspnea and no pain on inspiration Cardiovascular: no chest pain and no edema Gastrointestinal: + abdominal pain, + nausea, + vomiting and + hematemesis; no blood in stools and no melena Genitourinary: no dysuria Musculoskeletal: + back pain; no joint pain and no swelling upper abdominal pain radiates to back and upper chest Integumentary: + rash (malar rash - recently) Neurologic: no paresthesia Psychiatric: + anxiety Endocrine: + fatigue; no cold intolerance Hematologic / Lymphatic: no easy bruising Physical Exam Constitutional: well developed, well nourished and + acute distress (Due to abd pain); no altered mental status Eyes: PERRL ENMT: Mouth: + dry oral mucous membranes Neck: trachea midline, no thyromegaly Respiratory: normal respiratory effort, lungs clear to auscultation Cardiovascular: Rate/Rhythm: regular rate and regular rhythm Heart Sounds: normal S1 and normal S2; no murmur Vessels: posterior tibial pulses present and dorsalis pedis pulses present Extremities: no edema Gastrointestinal (Abdomen): Inspection/Auscultation: normal bowel sounds; abdomen not distended Percussion/Palpation: + abdomen tender (Very tender to palpation over RUQ and high epigastric region ); no hepatosplenomegaly Musculoskeletal: no cyanosis or clubbing, extremities motor strength 5/5 Skin: no rashes, warm and dry Neurologic: moves all extremities Psychiatric: Orientation: alert and oriented x 3 Lymphatic: no cervical lymphadenopathy Results & Data Results & Data ([facility]) Vital Signs (Past 12 Hours) Vital Signs Temp Pulse Pulse Resp BP BP Pulse Ox 07/18/20 18:00 78 19 196/114 H 96 07/18/20 17:00 76 18 186/128 H 97 07/18/20 15:58 72 18 216/103 H 98 07/18/20 13:59 36.8 C 78 18 200/104 H 100 Laboratory Results Laboratory Results - last 24 hr 07/18/20 07/18/20 07/18/20 15:53 15:53 15:53 WBC 7.69 RBC 4.89 Hgb 15.2 Hct 42.3 MCV 86.5 MCH 31.1 MCHC 35.9 RDW Std Deviation 39.8 RDW Coeff of Meg 12.6 Plt Count 232 MPV 10.7 H Immature Gran % (Auto) 0.1 Neut % (Auto) 76.2 Lymph % (Auto) 18.9 [place] % (Auto) 4.0 Eos % (Auto) 0.5 Baso % (Auto) 0.3 Neut # (Auto) 5.86 Lymph # (Auto) 1.45 [place] # (Auto) 0.31 Eos # (Auto) 0.04 Baso # (Auto) 0.02 Immature Gran # (Auto) 0.01 ESR PT INR APTT PTT Ratio Sodium 142 Potassium 3.7 Chloride 111 H Carbon Dioxide 23 Anion Gap 8.0 BUN 12 Creatinine 0.91 Est Cr Clr Drug Dosing 107.6 Est GFR ( Amer) 92.1 Est GFR (Non-Af Amer) 79.5 BUN/Creatinine Ratio 13.4 Glucose 101 H Calcium 9.2 Total Bilirubin 0.3 AST 17 ALT 23 Alkaline Phosphatase 76 C-Reactive Protein 0.61 H Total Protein 7.9 Albumin 4.0 Globulin 3.9 Albumin/Globulin Ratio 1.0 Lipase 33 L Random Cortisol Urine Color Urine Appearance Urine pH Ur Specific [place] Urine Protein Urine Glucose (UA) Urine Ketones Urine Blood Urine Nitrite Urine Bilirubin Urine Urobilinogen Ur Leukocyte Esterase Urine WBC (Auto) Urine RBC (Auto) U Hyaline Cast (Auto) U Epithel Cells (Auto) Urine Bacteria (Auto) Urine Test POC Ur Test SARS-CoV-2 Ag (Rapid) Blood Type O Negative Antibody Screen NEGATIVE 07/18/20 07/18/20 07/18/20 15:53 15:53 15:53 WBC RBC Hgb Hct MCV MCH MCHC RDW Std Deviation RDW Coeff of Meg Plt Count MPV Immature Gran % (Auto) Neut % (Auto) Lymph % (Auto) [place] % (Auto) Eos % (Auto) Baso % (Auto) Neut # (Auto) Lymph # (Auto) [place] # (Auto) Eos # (Auto) Baso # (Auto) Immature Gran # (Auto) ESR 6 PT 11.5 INR 1.1 APTT 29.9 PTT Ratio 1.1 Sodium Potassium Chloride Carbon Dioxide Anion Gap BUN Creatinine Est Cr Clr Drug Dosing Est GFR ( Amer) Est GFR (Non-Af Amer) BUN/Creatinine Ratio Glucose Calcium Total Bilirubin AST ALT Alkaline Phosphatase C-Reactive Protein Total Protein Albumin Globulin Albumin/Globulin Ratio Lipase Random Cortisol 6.99 Urine Color Urine Appearance Urine pH Ur Specific [place] Urine Protein Urine Glucose (UA) Urine Ketones Urine Blood Urine Nitrite Urine Bilirubin Urine Urobilinogen Ur Leukocyte Esterase Urine WBC (Auto) Urine RBC (Auto) U Hyaline Cast (Auto) U Epithel Cells (Auto) Urine Bacteria (Auto) Urine Test POC Ur Test SARS-CoV-2 Ag (Rapid) Blood Type Antibody Screen 07/18/20 07/18/20 07/18/20 15:53 16:20 16:20 WBC RBC Hgb Hct MCV MCH MCHC RDW Std Deviation RDW Coeff of Meg Plt Count MPV Immature Gran % (Auto) Neut % (Auto) Lymph % (Auto) [place] % (Auto) Eos % (Auto) Baso % (Auto) Neut # (Auto) Lymph # (Auto) [place] # (Auto) Eos # (Auto) Baso # (Auto) Immature Gran # (Auto) ESR PT INR APTT PTT Ratio Sodium Potassium Chloride Carbon Dioxide Anion Gap BUN Creatinine Est Cr Clr Drug Dosing Est GFR ( Amer) Est GFR (Non-Af Amer) BUN/Creatinine Ratio Glucose Calcium Total Bilirubin AST ALT Alkaline Phosphatase C-Reactive Protein Cancelled Total Protein Albumin Globulin Albumin/Globulin Ratio Lipase Random Cortisol Urine Color Yellow Urine Appearance Clear Urine pH 6.0 Ur Specific [place] 1.005 Urine Protein Negative Urine Glucose (UA) Negative Urine Ketones Negative Urine Blood Trace H Urine Nitrite Negative Urine Bilirubin Negative Urine Urobilinogen Negative Ur Leukocyte Esterase Negative Urine WBC (Auto) 0 Urine RBC (Auto) 0-4 U Hyaline Cast (Auto) 1-5 U Epithel Cells (Auto) 0-5 Urine Bacteria (Auto) Negative Urine Test POC Ur Test Pending SARS-CoV-2 Ag (Rapid) Blood Type Antibody Screen 07/18/20 07/18/20 16:20 18:17 WBC RBC Hgb Hct MCV MCH MCHC RDW Std Deviation RDW Coeff of Meg Plt Count MPV Immature Gran % (Auto) Neut % (Auto) Lymph % (Auto) [place] % (Auto) Eos % (Auto) Baso % (Auto) Neut # (Auto) Lymph # (Auto) [place] # (Auto) Eos # (Auto) Baso # (Auto) Immature Gran # (Auto) ESR PT INR APTT PTT Ratio Sodium Potassium Chloride Carbon Dioxide Anion Gap BUN Creatinine Est Cr Clr Drug Dosing Est GFR ( Amer) Est GFR (Non-Af Amer) BUN/Creatinine Ratio Glucose Calcium Total Bilirubin AST ALT Alkaline Phosphatase C-Reactive Protein Total Protein Albumin Globulin Albumin/Globulin Ratio Lipase Random Cortisol Urine Color Urine Appearance Urine pH Ur Specific [place] Urine Protein Urine Glucose (UA) Urine Ketones Urine Blood Urine Nitrite Urine Bilirubin Urine Urobilinogen Ur Leukocyte Esterase Urine WBC (Auto) Urine RBC (Auto) U Hyaline Cast (Auto) U Epithel Cells (Auto) Urine Bacteria (Auto) Urine Test Negative POC Ur Test SARS-CoV-2 Ag (Rapid) Negative Blood Type Antibody Screen Diagnostic Findings abd x-rays - no ileus/obstruction Code Status & VTE Plan Code Status full VTE Prophylaxis Plan VTE Prophylaxis will be ordered: Yes PG Care Time/CCT Total # of Minutes Spent Total Time Spent with Patient: Total time spent is greater than 50% in coordination of care (as documented) at patient's floor/unit and/or counseling patient: Coding Level of Care Code 12940 OBS Care - Level 3 Diagnoses Hematemesis K92.0 Abdominal pain R10.9 History of lupus anticoagulant disorder Z86.2 History of lupus Z87.39 Gastric ulcer K25.9 Chronic pain syndrome G89.4 Hypothyroidism E03.9 Fibromyalgia M79.7 HTN (hypertension) I10
[2020-07-18 19:30] LABS: C Reactive Protein 0.61 mg/dl (0-0.29)
[2020-07-18] MEDS: METOCLOPRAMIDE HCL INJ 5 MG/ML 2 ML VIAL IV SCH (19:54)
[2020-07-18] MEDS: HYDROmorphone INJ 0.5 MG/0.5 ML SYR IV PRN (19:54)
[2020-07-18] MEDS: hydrALAZINE HCL 20 MG/ML VIAL IV PRN (22:06)
[2020-07-18] MEDS: D5NSS + 20MEQ KCL 20 MEQ/1,000 ML BAG IV SCH (22:10)
[2020-07-18] MEDS: PANTOprazole 40 MG in DEXTROSE 5% 100 ML IV SCH (22:12)
[2020-07-18] MEDS: SUCRALFATE 1 GM/10 ML UDC PO SCH (22:12)
[2020-07-18] MEDS: GABAPENTIN 400 MG CAP PO SCH (22:13)
[2020-07-18] MEDS: BUPRENORPHINE/NALOXONE 8/2 MG TAB SL SCH (22:15)
[2020-07-18] MEDS: DICYCLOMINE HCL 20 MG TAB PO PRN (22:24)
[2020-07-18] MEDS ORDERED: traZODone HCL 50 MG TAB PO ONE (23:00)
[2020-07-19] MEDS ORDERED: METOPROLOL TARTRATE 1 MG/ML VIAL IV SCH
[2020-07-19] MEDS: METOPROLOL TARTRATE 1 MG/ML VIAL IV SCH ×5 (00:30→23:46)
[2020-07-19] MEDS: ONDANSETRON INJ 2 MG/ML 2 ML VIAL IV PRN ×2 (00:51→06:18)
[2020-07-19] MEDS: HYDROmorphone INJ 0.5 MG/0.5 ML SYR IV PRN ×7 (00:51→23:58)
[2020-07-19] MEDS: PANTOprazole 40 MG in DEXTROSE 5% 100 ML IV SCH ×4 (02:42→17:00)
[2020-07-19] MEDS: METOCLOPRAMIDE HCL INJ 5 MG/ML 2 ML VIAL IV SCH ×4 (02:43→21:07)
[2020-07-19] MEDS: DICYCLOMINE HCL 20 MG TAB PO PRN (04:32)
[2020-07-19] MEDS ORDERED: COSYNTROPIN 1 MCG in SYRINGE 0 ML IV SCH (06:00)
[2020-07-19] MEDS: LEVOTHYROXINE SODIUM 25 MCG TABLET PO SCH (06:40)
[2020-07-19] MEDS: D5NSS + 20MEQ KCL 20 MEQ/1,000 ML BAG IV SCH ×2 (08:15→17:34)
[2020-07-19 08:27] LABS: Hematocrit (blood only) 40.2 % (37-47); Hemoglobin 14.1 g/dL (12.0-16.0); Mean Corpuscular Hemoglobin 30.8 pg (25-34); Mean Corpuscular Hgb Conc 35.1 g/dL (32-36); Mean Corpuscular Volume 87.8 fL (80-100); Mean Platelet Volume 10.7 fL (7.4-10.4); Platelet Count 243 K/uL (130-400); RDW Coefficient of Variation 12.6 % (11.5-14.5); RDW Standard Deviation 40.2 fL (36.4-46.3); Red Blood Count 4.58 M/uL (4.2-5.4)
[2020-07-19 08:50] LABS: BUN Creatinine Ratio 9.7 (10-20); Calcium 8.6 mg/dl (8.5-10.1); Est GFR (African American) 83.2; Est GFR (Non-African American) 71.8; Potassium 3.5 mmol/L (3.5-5.1)
[2020-07-19] MEDS: VENLAFAXINE HCL XR 150 MG CAPXR PO SCH (08:56)
[2020-07-19] MEDS: SUCRALFATE 1 GM/10 ML UDC PO SCH ×4 (08:56→21:03)
[2020-07-19] MEDS: GABAPENTIN 400 MG CAP PO SCH ×3 (08:56→21:04)
[2020-07-19] MEDS: BUPRENORPHINE/NALOXONE 8/2 MG TAB SL SCH ×2 (09:00→21:07)
--- NOTE | 2020-07-19 10:12 | Gastrointestinal Consultation ---
Date of Consultation July 19, 2020 Assessment & Plan (1) Abdominal pain, epigastric: Patient describes pain as more RUQ today. 1) If symptoms persist, consider repeat CT scan to rule out pancreatitis. 2) Check Celiac panel. 3) Agree with outpatient gastric emptying study. 4) Pantoprazole 40 mg BID & Carafate 1 gm QID for known gastric ulcers. 5) Could consider implementing a gastroparesis diet prior to her outpatient GES. Would advise low fat, low fiber diet with 6 small meals daily. 6) If no findings on work-up and persistent pain despite the above-mentioned interventions, consider a trial of Baclofen for possible biliary spasms s/p cholecystectomy. Supervising Physician Co-Signing Physician Notes Agree with JANIE Newsome Abd: Soft, Tender RUQ, ND, +BS Continue current therapy and supportive care Check Gastrin level now. History of Present Illness Reason for Consultation: "hematemesis, noam Ortega tear? PUD?" Attending Physician: Jose Varela MD History of Present Illness Patient is a 39 yo female who has recently undergone an extensive evaluation for abdominal pain. She underwent an EGD & colonoscopy on 07/[address] Washington. She was noted to have ulcerations in her stomach. She was discharged on Protonix 40 mg BID and Carafate 1 gm QID. She reports that yesterday she felt nauseous and vomited dark, old blood. This has not continued. Her H/H is 14.1/40.2. She reports RUQ stabbing pain that is episodic and radiates to the back. Worsened with eating. No specific food triggers. Patient is s/p cholecystectomy. She had a CT in June for this issue but there were no acute findings that were corroborated with endoscopic evaluation. She reports she tried treating the pain with NSAIDs, but has discontinued that. She denies pertinent family history. She was previously scheduled for a gastric emptying study as an outpatient. She reports to me that she is currently having significant pain and wants to discuss Dilaudid with her hospitalist. Allergies Allergy/AdvReac Type Severity Reaction Status Date / Time Sulfa (Sulfonamide Allergy Intermediate LUPUS Verified 07/18/20 17:09 Antibiotics) FLARE UP dexamethasone Allergy Unknown HIVES Verified 07/18/20 17:09 duloxetine Allergy Unknown UNKNOWN Verified 07/18/20 17:09 escitalopram Allergy Unknown UNKNOWN Verified 07/18/20 17:09 latex Allergy Unknown HIVES Verified 07/18/20 17:09 morphine Allergy Unknown local Verified 07/18/20 17:09 reaction at site pregabalin Allergy Unknown UNKNOWN Verified 07/18/20 17:09 Home Medications Medication Instructions Recorded Confirmed Type gabapentin 400 mg PO TID 07/10/19 07/18/20 History levothyroxine 25 mcg PO QAM 07/10/19 07/18/20 History venlafaxine 300 mg PO QAM 07/10/19 07/18/20 History buprenorphine-naloxone 1 tab SUBLINGUAL BID 06/27/20 07/18/20 History furosemide 40 mg PO BID 06/27/20 07/18/20 History aspirin 325 mg PO QAM 07/09/20 07/18/20 History metoprolol tartrate 25 mg PO QAM 07/09/20 07/18/20 History dicyclomine 20 mg tablet 20 mg PO Q6H PRN #120 tab 07/10/20 07/18/20 Rx pantoprazole 40 mg tablet,delayed 40 mg PO BID #60 tab 07/10/20 07/18/20 Rx release sucralfate 100 mg/mL oral 1 g PO QID #420 ml 07/10/20 07/18/20 Rx suspension famotidine 20 mg PO BID 07/18/20 07/18/20 History lorazepam [Ativan] 1 mg PO DAILY PRN 07/18/20 07/18/20 History zolpidem [Ambien] 10 mg PO HS PRN 07/18/20 07/18/20 History Patient History Medical History (Updated 07/18/20 @ 22:23 by Andrey Waggoner MD) Anxiety Bipolar disorder Chronic pain syndrome Depression Fibromyalgia Gastritis History of kidney infection History of lupus anticoagulant disorder History of migraine History of multiple miscarriages History of ovarian cyst History of umbilical hernia Hypertension Hypothyroidism Intractable epigastric abdominal pain Lupus (04/04/14) Lupus nephritis Osteoarthritis Peptic ulcer disease Pleuritis (09/17/14) history of Post traumatic stress disorder Pulmonary embolism history of Surgical History H/O: hysterectomy History of tonsillectomy and adenoidectomy Hx of appendectomy Hx of cholecystectomy Family History (Updated 07/18/20 @ 19:40 by Hung Gonzalez) Sister SLE (systemic lupus erythematosus) Family/Other SLE (systemic lupus erythematosus) maternal side Social History (Updated 07/18/20 @ 19:43 by Hung Gonzalez) Smoking Status: Former smoker Tobacco Type: Cigarettes Age Started Using Tobacco: 23; Age Quit Using Tobacco: 39; Smoking End Date: Apr 2020; Second Hand Exposure: No; Hx Alcohol Use: No Hx Substance Use: No Preferred Language: Indonesian Communication Ability: Effective Nutrition Assistant Required: No Beliefs That Will Affect Care: None marital status: Single Current Living Situation: Significant Other Current Living Situation Comment: [facility] in [place] current occupational status: employed 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 How many Children do You have: 2 Other Information That Helps Us Care for You: No Feels Safe at Home: Yes Safety Concerns: Feels Safe At This Time Assistive Devices: None Review of Systems Constitutional: no fever and no chills Respiratory: no cough and no dyspnea Cardiovascular: no chest pain Gastrointestinal: + abdominal pain Integumentary: no rash Psychiatric: no problem reported Physical Exam Constitutional: well developed and well nourished Eyes: PERRL, conjunctivae normal, anicteric sclerae Neck: normal visual inspection Respiratory: normal respiratory effort Cardiovascular: Extremities: no edema Gastrointestinal (Abdomen): Inspection/Auscultation: abdomen normal to inspection Musculoskeletal: Head/Neck/Chest: normocephalic Skin: no rashes Psychiatric: A+Ox3, euthymic affect Results & Data ([facility]) Vital Signs (Past 12 Hours) Vital Signs Temp Pulse Pulse Resp BP BP BP 07/19/20 07:42 36.7 C 54 L 18 175/100 H 175/104 H 07/19/20 07:38 48 L 07/19/20 06:39 67 07/19/20 03:21 36.6 C 66 14 149/78 H 07/19/20 01:27 68 07/19/20 00:30 68 178/97 H 07/18/20 23:51 36.7 C 68 14 178/97 H Pulse Ox 07/19/20 07:42 99 07/19/20 07:38 07/19/20 06:39 07/19/20 03:21 96 07/19/20 01:27 07/19/20 00:30 07/18/20 23:51 100 PG Care Time/CCT Total # of Minutes Spent Total Time Spent with Patient: Total time spent is greater than 50% in coordination of care (as documented) at patient's floor/unit and/or counseling patient: Coding Level of Care Code 06216 Office/OBS Consult Lvl 4 Diagnoses Abdominal pain, epigastric R10.13
[2020-07-19 12:07] LABS: Amphetamines+Metham, Urine Neg (Neg); Barbiturates, Urine Neg (Neg); Benzodiazepine, Urine Neg (Neg); Cocaine, Urine Neg (Neg); MDMA (Ecstacy), Urine Neg (Neg); Methadone, Urine Neg (Neg); Opiate, Urine Pos (Neg); Phencyclidine, Urine Neg (Neg)
--- NOTE | 2020-07-19 17:46 | Hospitalist Progress Note ---
Date of Service July 19, 2020 Assessment & Plan (1) Hematemesis: Possible Sanna-Alirio tear from retching/forceful recurrent vomiting vs. blood from recently dx ulcers in June as well. - No hematemesis since arrival. - GI consulted - Recommend CT scan, continue PPI & Carafate, check Celiac, gastric emptying (2) Abdominal pain: Acute on chronic. Well-documented intermittent yet long-standing upper abdominal pain. Present for 4-6 weeks prompting the EGD in 06/2020. Extensive w/u for this at multiple hospitals over the years including CTs, CTAs, blood work, EGDs, colonoscopies, etc. 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 Taking 325mg of aspirin chronically for this. - Hold aspirin. (4) History of lupus: No contact with rheumatology in 4+ years. Sed rate / CRP both normal. U/a bland - no signs of lupus nephritis. No other obvious features on exam of active SLE. - CT chest/abd/pelvis in June without findings to suggest active SLE. - Monitor (5) Chronic pain syndrome: Managed at Suboxone clinic in [place]. PDMP substantiates this. For admitting provider, she was very vague about why she took narcotics previously - did mention at one point "my lupus." - Monitor (6) Hypothyroidism: TSH in 07/06 was wnl. - Cont Synthroid 25 mcg PO daily (7) Fibromyalgia: Noted. (8) HTN (hypertension): BP was 185/85. Marked elevation upon admission - much like past admissions. - Will order renal artery Dopplers (9) DVT prophylaxis: Lovenox 40 mg SQ daily Admission and Anticipated Discharge Date Admission Date: July 18, 2020 Subjective With continued RUQ pain. Reports no fevers/chills, chest pain, shortness of breath, or vomiting. Physical Exam Constitutional: WD/WN, vitals as above Eyes: EOM intact bilaterally; no conjunctival abnormality ENMT: external ear and nose normal, oropharynx normal Neck: trachea midline, no thyromegaly normal visual inspection Respiratory: normal respiratory effort, lungs clear to auscultation no respiratory distress Cardiovascular: RRR, no murmur, no edema Gastrointestinal (Abdomen): Inspection/Auscultation: abdomen normal to inspection and normal bowel sounds; abdomen not distended Percussion/Palpation: + abdomen tender and abdomen soft; no guarding and abdomen not rigid Musculoskeletal: no cyanosis or clubbing, extremities motor strength 5/5 Skin: no rashes, warm and dry Neurologic: moves all extremities and awake Psychiatric: Orientation: alert, oriented to person and cooperative Results & Data Results & Data ([facility]) Vital Signs (Past 12 Hours) Vital Signs Temp Pulse Pulse Resp BP BP BP 07/19/20 15:58 49 L 07/19/20 15:24 36.8 C 59 L 18 175/110 H 07/19/20 11:28 60 196/110 H 07/19/20 11:00 36.9 C 59 L 20 196/110 H 07/19/20 07:42 36.7 C 54 L 18 175/100 H 175/104 H 07/19/20 07:38 48 L 07/19/20 06:39 67 Pulse Ox 07/19/20 15:58 07/19/20 15:24 96 07/19/20 11:28 07/19/20 11:00 100 07/19/20 07:42 99 07/19/20 07:38 07/19/20 06:39 PG Care Time/CCT Total # of Minutes Spent Total Time Spent with Patient: Total time spent is greater than 50% in coordination of care (as documented) at patient's floor/unit and/or counseling patient: Coding Level of Care Code 87616 Subseq Hosp Care Lvl 2 Diagnoses Hematemesis K92.0 Abdominal pain R10.9 History of lupus anticoagulant disorder Z86.2 History of lupus Z87.39 Chronic pain syndrome G89.4 Hypothyroidism E03.9 Fibromyalgia M79.7 HTN (hypertension) I10 DVT prophylaxis Z29.9
[2020-07-19] MEDS: hydrALAZINE HCL 20 MG/ML VIAL IV PRN (19:43)
[2020-07-19] MEDS ORDERED: IOVERSOL 100ml IV ONE (20:33)
--- NOTE | 2020-07-19 20:50 | CT Scan Report ---
CT abd pelvis oral and IV con CLINICAL HISTORY: Abdominal pain RIGHT UPPER QUADRANT PAIN COMPARISON STUDY: 06/29/2020 TECHNIQUE: The patient was scanned following administration of dilute oral contrast, and in a dynamic helical fashion during intravenous administration of 93 cc of Optiray 320 A dose lowering technique was utilized adhering to the principles of ALARA. CT DOSE: 974.11 mGy.cm FINDINGS: Lower chest: The heart is normal in size and configuration, without pericardial effusion. The lung ba ses and pleural spaces are clear. Liver: The contrast-enhanced liver is normal in size, contour, and attenuation. There is no intrahepa tic biliary ductal dilatation. The hepatic veins and portal veins are patent. Gallbladder: Surgically absent Spleen: The spleen is the upper limits of normal in size Pancreas: Unremarkable. Adrenal glands: Unremarkable. Kidneys: There is symmetric renal cortical enhancement. The kidneys are normal in size without hydron ephrosis. Bowel: There are no transition zones indicate bowel obstruction. There is no evidence of acute divert iculitis. By history the appendix is surgically absent. Peritoneum: There is trace free pelvic fluid likely physiologic. There is no free intraperitoneal air . There is a fat-containing umbilical hernia. Vasculature: The abdominal aorta is normal in course and caliber. Adenopathy: None. Pelvic viscera: The uterus is surgically absent. There is a persistent 38 mm left ovarian cyst which appears to contain a septation. There is a 21 mm right ovarian follicle similar to the prior study. Skeletal structures: No destructive osseous lesions are seen. IMPRESSION: 1. No evidence of bowel obstruction. No evidence of free air 2. No acute inflammatory changes 3. Surgically absent gallbladder, appendix, uterus 4. Persistent 38 mm left ovarian cyst 5. Minimal free pelvic fluid, likely physiologic 6. Small fat-containing umbilical hernia ACT 112: Negative or not required by law. Electronically signed by: Reilly Hughes M.D. 07/19/2020 8:49 PM
[2020-07-19] MEDS: PANTOprazole 40 MG TAB PO SCH (21:26)
[2020-07-20] MEDS: METOCLOPRAMIDE HCL INJ 5 MG/ML 2 ML VIAL IV SCH ×3 (01:34→14:49)
[2020-07-20] MEDS: D5NSS + 20MEQ KCL 20 MEQ/1,000 ML BAG IV SCH (04:01)
[2020-07-20] MEDS: HYDROmorphone INJ 0.5 MG/0.5 ML SYR IV PRN ×4 (04:08→15:35)
[2020-07-20] MEDS: METOPROLOL TARTRATE 1 MG/ML VIAL IV SCH ×3 (05:34→15:37)
[2020-07-20] MEDS: LEVOTHYROXINE SODIUM 25 MCG TABLET PO SCH (05:35)
--- NOTE | 2020-07-20 07:39 | Ultrasound Report ---
DOPPLER ULTRASOUND OF THE RENAL ARTERIES CLINICAL HISTORY: Hypertension.. COMPARISON STUDY: Abdominal CT dated 07/19/2020. TECHNIQUE: Doppler sonography of the renal arteries was performed to assess renal artery stenosis. Im ages are reviewed in the transverse and longitudinal planes. The examination is degraded by overlying bowel gas. FINDINGS: The kidneys appear normal in size and echotexture. Right kidney measures 9.4 cm in length and the lef t kidney measures 10.4 cm in length. There is no hydronephrosis. On the right, intrarenal arterial resistive indices range from 0.48 to 0.71. Intrarenal arterial wave forms are normal with brisk upstrokes. The right renal arterial waveform is normal, and velocities wi thin the right renal artery measure up to 83 cm/sec. The right renal vein is patent. On the left, intrarenal arterial resistive indices range from 0.60 to 0.69. Intrarenal arterial wave forms are normal with brisk upstrokes. The left renal arterial waveform is normal, and velocities wit hin the left renal artery measure up to 92 cm/sec. The left renal vein is patent. The abdominal aorta is patent. Velocities within the abdominal aorta measure up to 82 cm/s. IMPRESSION: There is no sonographic evidence of renal artery stenosis. ACT 112: Negative or not required by law. Electronically signed by: Abel Aragon M.D. 07/20/2020 7:38 AM
[2020-07-20 08:03] LABS: Hematocrit (blood only) 39.4 % (37-47); Hemoglobin 13.7 g/dL (12.0-16.0); Mean Corpuscular Hemoglobin 30.6 pg (25-34); Mean Corpuscular Hgb Conc 34.8 g/dL (32-36); Mean Corpuscular Volume 87.9 fL (80-100); Mean Platelet Volume 10.9 fL (7.4-10.4); Platelet Count 226 K/uL (130-400); RDW Coefficient of Variation 12.6 % (11.5-14.5); RDW Standard Deviation 40.8 fL (36.4-46.3); Red Blood Count 4.48 M/uL (4.2-5.4)
[2020-07-20] MEDS: SUCRALFATE 1 GM/10 ML UDC PO SCH ×2 (08:20→11:45)
[2020-07-20] MEDS: VENLAFAXINE HCL XR 150 MG CAPXR PO SCH (08:21)
[2020-07-20] MEDS: GABAPENTIN 400 MG CAP PO SCH (08:22)
[2020-07-20] MEDS: PANTOprazole 40 MG TAB PO SCH (08:22)
[2020-07-20] MEDS: ONDANSETRON INJ 2 MG/ML 2 ML VIAL IV PRN (08:27)
[2020-07-20 08:34] LABS: Calcium 8.9 mg/dl (8.5-10.1); Creatinine Clr Calc Pharmacy 119.1 ml/min; Est GFR (African American) 104.5; Est GFR (Non-African American) 90.1; Magnesium 1.7 mg/dl (1.8-2.4); Phosphorus 3.2 mg/dl (2.5-4.9); Potassium 3.8 mmol/L (3.5-5.1)
[2020-07-20] MEDS: BUPRENORPHINE/NALOXONE 8/2 MG TAB SL SCH (09:08)
[2020-07-20] MEDS ORDERED: BACLOFEN 10 MG TAB PO SCH ×2 (10:00→14:00)
[2020-07-20] MEDS ORDERED: FAMOTIDINE 20 MG TAB PO SCH (10:00)
--- NOTE | 2020-07-20 10:00 | Gastroenterology Progress Note ---
Date of Service July 20, 2020 Assessment & Plan (1) Abdominal pain, epigastric: (2) Peptic ulcer disease: -Gastric emptying study scheduled on 07/25/2020 -Okay to trial Baclofen for biliary spasms -Continue Protonix 40 mg BID -Continue Carafate 1 gm QID -Add Famotidine 20 mg BID -Await gastrin level & Celiac panel -Avoid NSAIDs -Patient is interested in a consult at a tertiary center as she has not successfully changed her symptoms with the 3 GI groups she has seen thus far. Our office will arrange this outpatient appointment. Admission and Anticipated Discharge Date Admission Date: July 18, 2020 Supervising Physician Co-Signing Physician Notes Agree with JANIE Newsome as above Abd: Soft, Tender RUQ, ND Continue current therapy Await Celiac panel and Gastrin levels Followup as outpatient upon discharge. Subjective Patient is a 39 yo female hospitalized with acute on chronic abdominal pain. Per review of outpatient records, it appears [facility] is her 3rd opinion regarding this ongoing issue. She reports persistent RUQ/epigastric pain. She has no further alarm symptoms at present. She is interested in a tertiary evaluation as she has not been able to determine conclusively what is causing her pain. A gastrin level and Celiac panel are pending. She has a GES scheduled for this upcoming Thursday. A CT from 07/19/2020 did not indicate any acute issues. Review of Systems Constitutional: no fever and no chills Respiratory: no cough and no dyspnea Cardiovascular: no chest pain Gastrointestinal: + abdominal pain Integumentary: no rash Physical Exam Constitutional: WD/WN, vitals as above Neck: normal visual inspection Respiratory: normal respiratory effort Gastrointestinal (Abdomen): Inspection/Auscultation: abdomen not distended Percussion/Palpation: + abdomen tender and abdomen soft Musculoskeletal: Head/Neck/Chest: normocephalic Psychiatric: A+Ox3, euthymic affect Patient was sleeping comfortably in bed as I entered the room Results & Data Results & Data ([facility]) Vital Signs (Past 12 Hours) Vital Signs Temp Pulse Pulse Resp BP BP Pulse Ox 07/20/20 08:00 59 L 07/20/20 07:55 37.1 C 62 19 147/84 H 95 07/20/20 05:34 71 158/78 H 07/20/20 03:48 36.9 C 70 18 132/72 95 07/19/20 23:36 37 C 82 18 177/84 H 97 PG Care Time/CCT Total # of Minutes Spent Total Time Spent with Patient: Total time spent is greater than 50% in coordination of care (as documented) at patient's floor/unit and/or counseling patient: Coding Level of Care Code 07472 Subseq Hosp Care Lvl 2 Diagnoses Abdominal pain, epigastric R10.13 Peptic ulcer disease K27.9
[2020-07-20] MEDS ORDERED: POLYETHYLENE (MIRALAX) 17 GM PACK PO PRN (12:45)
[2020-07-20] MEDS ORDERED: GABAPENTIN 100 MG CAP PO SCH (14:00)
--- NOTE | 2020-07-20 15:43 | Discharge Summary ---
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 Patient states that she had multiple episodes of retching and vomiting this am. During one of the episodes she had a small amount of bright red blood and old, dark blood with clots as well. Patient was seen in the [facility] office on 07/02/20 due to a several-week history of RUQ and epigastric abdominal pain. This was followed by EGD and colonoscopy by Dr Washington on 07/10/20. EGD was notable for multiple gastric ulcerations as well as food residue concerning for gastroparesis. She was scheduled for gastric emptying study on 07/25/20. Biopsies were negative for H. Pylori. Danuta states that the pain is worsened by eating. Nothing makes the pain better. The pain is constant, burning in quality, and she also says it feels like a "bunch of knives in my stomach." Pain is better with laying supine. The upper abdominal pain has been present for a long period of time. Had EGD done at [facility] in [facility] several years ago showing PUD. She went about 1 year with no abdominal pain then developed the pain once again in May/June. Denies diarrhea, melena or BRBPR. Denies alcohol use. Does take 325mg aspirin daily for her h/o lupus anticoagulant. Only took systemic anticoagulation for 6 months following her PE event in the early . With respect to her suboxone she states she goes to a clinic in [place] for this. She previously used prescription narcotics for chronic pain prior. She attributes her pain to her lupus. Principal Diagnosis RUQ pain - NOS Discharge Exam Constitutional WD/WN, vitals as above Eyes EOM intact bilaterally; no conjunctival abnormality ENMT external ear and nose normal, oropharynx normal Neck trachea midline, no thyromegaly normal visual inspection Respiratory normal respiratory effort, lungs clear to auscultation no respiratory distress Cardiovascular RRR, no murmur, no edema Gastrointestinal (Abdomen) Inspection/Auscultation: abdomen normal to inspection and normal bowel sounds; abdomen not distended Percussion/Palpation: + abdomen tender and abdomen soft; no guarding and abdomen not rigid Musculoskeletal no cyanosis or clubbing, extremities motor strength 5/5 Skin no rashes, warm and dry Neurologic moves all extremities and awake Psychiatric Orientation: alert, oriented to person and cooperative Discharge Data Allergies Allergy/AdvReac Type Severity Reaction Status Date / Time Sulfa (Sulfonamide Allergy Intermediate LUPUS Verified 07/18/20 17:09 Antibiotics) FLARE UP dexamethasone Allergy Unknown HIVES Verified 07/18/20 17:09 duloxetine Allergy Unknown UNKNOWN Verified 07/18/20 17:09 escitalopram Allergy Unknown UNKNOWN Verified 07/18/20 17:09 latex Allergy Unknown HIVES Verified 07/18/20 17:09 morphine Allergy Unknown local Verified 07/18/20 17:09 reaction at site pregabalin Allergy Unknown UNKNOWN Verified 07/18/20 17:09 Consultations 07/18/20 17:23 ED Decision to Admit Stat 07/18/20 21:15 Consult Gastroenterology Routine Ordered Studies 07/19/20 17:50 US duplex renal artery Routine 07/19/20 17:54 CT abd pelvis oral and IV con Routine Hospital Course (1) Hematemesis: Possible Sanna-Alirio tear from retching/forceful recurrent vomiting vs. blood from recently dx ulcers in June as well. - No hematemesis since arrival. - CT a/p showed no pancreatitis or other acute issues. - GI consulted - Continue PPI & Carafate - Follow up with GI for gastrin & celiac panel results. Will get gastric emptying study. Referral to tertiary care center for further work-up. - Started baclofen 10 mg PO TID for possible biliary spasm. Increased gabapentin for possible neuropathic abdominal pain. (2) Abdominal pain: Acute on chronic. Well-documented intermittent yet long-standing upper abdominal pain. Present for 4-6 weeks prompting the EGD in 06/2020. Extensive w/u for this at multiple hospitals over the years including CTs, CTAs, blood work, EGDs, colonoscopies, etc. 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 Taking 325mg of aspirin chronically for this. - Hold aspirin on discharge. (4) History of lupus: No contact with rheumatology in 4+ years. Sed rate / CRP both normal. U/a bland - no signs of lupus nephritis. No other obvious features on exam of active SLE. - CT chest/abd/pelvis in June without findings to suggest active SLE. - Monitor (5) Chronic pain syndrome: Managed at Suboxone clinic in [place]. PDMP substantiates this. For admitting provider, she was very vague about why she took narcotics previously - did mention at one point "my lupus." - Monitor (6) Hypothyroidism: TSH in 07/06 was wnl. - Cont Synthroid 25 mcg PO daily (7) Fibromyalgia: Noted. (8) HTN (hypertension): BP was 185/85. Marked elevation upon admission - much like past admissions. - Renal artery Dopplers were normal. No evidence of fibrodysplagia. (9) DVT prophylaxis: Lovenox 40 mg SQ daily Total Time Total Time Spent Total Time Spent (In Minutes): 35 Discharge Plan Discharge Items Patient Disposition: Home - Self-Care Reason For Visit: HEMATEMESIS Discharge Diagnosis: Right-upper quadrant pain Activity: Resume your previous activity Non-emergency contact: Primary Care Provider and Foreclosure Clerk Call non-emergency contact if: your symptoms worsen Follow-up/Referrals: Christine Swan CRNP [Nurse Practitioner] - 07/30/20 1:00 pm (Please see Ms. Swan or Dr. Washington in 1-2 weeks for lab follow-ups, further testing, and possible referral.) PCP,NO [Primary Care Provider] - Diet: Low Fiber and Low Fat Addtl Attending Provider Instructions: You were admitted to the hospital with right-upper quadrant pain. We checked for acute causes that we can help with, including biliary issues, pancreatitis, or other gastric issue. Fortunately, most of these things have not been positive, but we are not sure what is causing your abdominal pain. We would like you to do a few things to improve your pain. First, we have adjusted your medications to help with neuropathic abdominal pain (nerve overactivity) as well as biliary colic/spasm. Please eat small, frequent meals with low fat, low fiber. This may help with any gastroparesis. Please follow up with that up with the gastric emptying test. Please follow up with Dr. Washington or Ms. Swan to work on a referral as well. They can also speak with you about your gastrin level and celiac panel. Pending Studies at Discharge: Yes Studies:: Gastrin level and celiac panel Stand-Alone Forms: My [facility], Smoking Cessation Medications and DC Order Prescriptions: New gabapentin 600 mg tablet 600 mg PO TID Qty: 90 RF: 0 baclofen 10 mg tablet 10 mg PO TID PRN (Reason: abdominal discomfort) Qty: 90 RF: 0 Continued dicyclomine 20 mg tablet 20 mg PO Q6H PRN (Reason: abdominal pain) Qty: 120 RF: 1 sucralfate [Carafate] 100 mg/mL suspension 1 g PO QID Qty: 420 RF: 0 pantoprazole 40 mg tablet,delayed release (DR/EC) 40 mg PO BID Qty: 60 RF: 1 furosemide 40 mg tablet 40 mg PO BID RF: 0 buprenorphine-naloxone 8-2 mg tablet, sublingual 1 tab SUBLINGUAL BID RF: 0 venlafaxine 150 mg capsule,extended release 24hr 300 mg PO QAM RF: 0 levothyroxine 25 mcg tablet 25 mcg PO QAM RF: 0 metoprolol tartrate 25 mg Tablet 25 mg PO QAM RF: 0 lorazepam [Ativan] 1 mg Tablet 1 mg PO DAILY PRN (Reason: Anxiety) RF: 0 zolpidem [Ambien] 10 mg Tablet 10 mg PO HS PRN (Reason: Insomnia) RF: 0 famotidine 20 mg tablet 20 mg PO BID RF: 0 Discontinued gabapentin 400 mg capsule 400 mg PO TID RF: 0 aspirin 325 mg Tablet 325 mg PO QAM RF: 0 Discharge Orders: Discharge Order (Routine); Ordered 07/20/20 Ordered By: Jose Varela Admission Data Admit Date/Time: 07/18/20 19:37 Attending Provider: Jose Varela Admit Provider: Hung Gonzalez Primary Care Provider: PCP,NO Other Providers: Lorenzo Washington ; Jose Varela Other Interventions: Discharge Summary Assessment (RN) Last Done: 07/20/20 14:52 Coding Level of Care Code 66445 OBS Care - Discharge Diagnoses Hematemesis K92.0 Abdominal pain R10.9 History of lupus anticoagulant disorder Z86.2 History of lupus Z87.39 Chronic pain syndrome G89.4 Hypothyroidism E03.9 Fibromyalgia M79.7 HTN (hypertension) I10 DVT prophylaxis Z29.9
[2020-07-21 00:37] LABS: IgA Serum 119 mg/dL (47-310); Tis Trans IgA 1 U/mL
[2020-07-21 13:43] LABS: Codeine Urine NEGATIVE ng/mL (<50); Hydrocodone Urine NEGATIVE ng/mL (<50); Hydromor Urine 176 ng/mL (<50); Morphine Urine NEGATIVE ng/mL (<50); Norhydrocodone Conf Ur NEGATIVE ng/mL (<50); Noroxycodone Urine NEGATIVE ng/mL (<50); Oxycodone Urine NEGATIVE ng/mL (<50); Oxymorph Urine NEGATIVE ng/mL (<50)
== END 2020-07-20 16:24 | disposition home or self-care (01) ==
LOC: ED 13:57 → 2S 13:57 → SUATTDRO 19:37 → 2S 20:30

== ENCOUNTER 2020-10-12 11:09 | Inpatient (IN) ==
[~2020-10-12 11:09] MED LIST: SODIUM BICARB 8.4% INJ 50 MEQ/50 ML SYR IV ONE
[2020-10-12] MEDS ORDERED: SODIUM CHLORIDE 0.9% 1000ML 1,000 ML IV ONE (11:59)
[2020-10-12] MEDS ORDERED: ACETAMINOPHEN 1,000 MG/100 ML VIAL IV STA (11:59)
[2020-10-12] MEDS ORDERED: METOCLOPRAMIDE HCL INJ 5 MG/ML 2 ML VIAL IV STA (12:01)
[2020-10-12] MEDS ORDERED: diphenhydrAMINE 50 MG/ML VIAL IV STA (12:01)
--- NOTE | 2020-10-12 12:10 | Emergency Department Note ---
History of Present Illness General Chief complaint: Abdominal Pain Stated complaint: CONFUSION, ABD PAIN Time Seen by Provider: 10/12/20 11:31 History of Present Illness Maximum Pain Intensity: 6 This patient is a 39-year-old female who presents emergency department complaining of a crampy epigastric abdominal pain that has gotten progressively worse over the last few days. The patient has a history of gastroparesis. She has been dealing with this pain for some time. She has tried Tylenol with no relief. She reports nausea without any vomiting. Her last bowel movement was a few days ago. She denies any fever. She has an appointment with a specialist in [place] in the next week. Home Medications Medication Instructions Recorded Confirmed Type levothyroxine 25 mcg PO QAM 07/10/19 10/12/20 History venlafaxine 300 mg PO QAM 07/10/19 10/12/20 History famotidine 20 mg PO BID 07/18/20 10/12/20 History pantoprazole 40 mg PO BID 30 Days #60 tab 08/15/20 10/12/20 Rx baclofen 20 mg PO TID PRN #20 tab 08/30/20 10/12/20 Rx gabapentin 900 mg PO TID #30 cap 08/30/20 10/12/20 Rx linaclotide [Linzess] 145 mcg PO DAILYBB #30 cap 08/30/20 10/12/20 Rx amlodipine 10 mg PO QAM 10/12/20 10/12/20 History metoprolol tartrate 25 mg PO QAM 10/12/20 10/12/20 History Allergies Allergy/AdvReac Type Severity Reaction Status Date / Time Sulfa (Sulfonamide Allergy Intermediate LUPUS Verified 10/12/20 14:55 Antibiotics) FLARE UP dexamethasone Allergy Unknown HIVES Verified 10/12/20 14:55 duloxetine Allergy Unknown UNKNOWN Verified 10/12/20 14:55 escitalopram Allergy Unknown UNKNOWN Verified 10/12/20 14:55 latex Allergy Unknown HIVES Verified 10/12/20 14:55 morphine Allergy Unknown local Verified 10/12/20 14:55 reaction at site pregabalin Allergy Unknown UNKNOWN Verified 10/12/20 14:55 Past Med/Surg History Medical History (Updated 10/12/20 @ 20:31 by Chay Velazquez MD) Anxiety Chronic pain syndrome Depression Fibromyalgia Gastritis Gastroparesis History of kidney infection History of lupus anticoagulant disorder History of migraine History of multiple miscarriages History of ovarian cyst History of umbilical hernia Hypertension Hypothyroidism Intractable epigastric abdominal pain Lupus (04/04/14) Lupus nephritis Osteoarthritis Peptic ulcer disease Pleuritis (09/17/14) history of Post traumatic stress disorder Pulmonary embolism history of Surgical History H/O: hysterectomy History of tonsillectomy and adenoidectomy Hx of appendectomy Hx of cholecystectomy Port-A-Cath in place (08/29/20) Mediport Placement, Left Subclavian Vein Dr. Garcia 08/29/2020 Family History Sister SLE (systemic lupus erythematosus) Family/Other SLE (systemic lupus erythematosus) maternal side Social History Smoking Status: Never smoker Tobacco Type: Cigarettes Age Started Using Tobacco: 23; Age Quit Using Tobacco: 39; Second Hand Exposure: No; Hx Alcohol Use: Yes Alcohol type: beer Hx Substance Use: No Preferred Language: Bulgarian Communication Ability: Effective Ambulatory Care Nurse Required: No Beliefs That Will Affect Care: None marital status: Single Current Living Situation: Family Current Living Situation Comment: fiance in [place] current occupational status: employed 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 How many Children do You have: 2 Feels Safe at Home: Yes Assistive Devices: Glasses Review of Systems A total of 10 systems reviewed and were otherwise negative Physical Exam Vital Signs Vital Signs - 24 hr 10/12/20 11:12 10/12/20 14:39 10/12/20 15:56 Temperature 36.4 C L Temperature Source Temporal Artery Scan Pulse Rate 105 H 84 Pulse Rate [Finger] 93 H Pulse Rate from SpO2 Sensor 83 Respiratory Rate 18 16 25 H Respiratory Effort / Characteristics Non-Labored Respiratory Depth Normal Blood Pressure 221/101 H 196/122 H Blood Pressure [Right Arm] 224/130 H Blood Pressure Mean 141 146 Blood Pressure Mean [Right Arm] 161 Pulse Oximetry 99 100 99 Oxygen Delivery Method Room Air Sepsis Recent Fever Within 48 Hours No Sepsis New/Unexplained Change in Mental Status No Sepsis Action Taken by Nursing No Action Required 10/12/20 15:58 10/12/20 16:00 10/12/20 16:01 Temperature Temperature Source Pulse Rate 94 H 87 87 Pulse Rate [Finger] Pulse Rate from SpO2 Sensor 92 H 88 87 Respiratory Rate 26 H 26 H 19 Respiratory Effort / Characteristics Respiratory Depth Blood Pressure 186/110 H Blood Pressure [Right Arm] Blood Pressure Mean 135 Blood Pressure Mean [Right Arm] Pulse Oximetry 98 100 99 Oxygen Delivery Method Sepsis Recent Fever Within 48 Hours Sepsis New/Unexplained Change in Mental Status Sepsis Action Taken by Nursing 10/12/20 16:30 10/12/20 16:31 10/12/20 16:46 Temperature Temperature Source Pulse Rate 93 H 93 H 93 H Pulse Rate [Finger] Pulse Rate from SpO2 Sensor 93 H 93 H 94 H Respiratory Rate 29 H 24 25 H Respiratory Effort / Characteristics Respiratory Depth Blood Pressure 216/126 H 207/109 H Blood Pressure [Right Arm] Blood Pressure Mean 156 141 Blood Pressure Mean [Right Arm] Pulse Oximetry 100 100 99 Oxygen Delivery Method Sepsis Recent Fever Within 48 Hours Sepsis New/Unexplained Change in Mental Status Sepsis Action Taken by Nursing 10/12/20 17:00 10/12/20 17:01 10/12/20 17:15 Temperature Temperature Source Pulse Rate 100 H 103 H 98 H Pulse Rate [Finger] Pulse Rate from SpO2 Sensor 100 H 103 H 99 H Respiratory Rate 17 19 19 Respiratory Effort / Characteristics Respiratory Depth Blood Pressure 194/131 H 179/147 H Blood Pressure [Right Arm] Blood Pressure Mean 152 157 Blood Pressure Mean [Right Arm] Pulse Oximetry 100 100 100 Oxygen Delivery Method Sepsis Recent Fever Within 48 Hours Sepsis New/Unexplained Change in Mental Status Sepsis Action Taken by Nursing 10/12/20 17:20 10/12/20 17:25 10/12/20 17:30 Temperature Temperature Source Pulse Rate 78 77 77 Pulse Rate [Finger] Pulse Rate from SpO2 Sensor 78 78 77 Respiratory Rate 24 20 20 Respiratory Effort / Characteristics Respiratory Depth Blood Pressure 201/117 H 184/132 H 173/113 H Blood Pressure [Right Arm] Blood Pressure Mean 145 149 133 Blood Pressure Mean [Right Arm] Pulse Oximetry 98 98 99 Oxygen Delivery Method Sepsis Recent Fever Within 48 Hours Sepsis New/Unexplained Change in Mental Status Sepsis Action Taken by Nursing 10/12/20 17:31 10/12/20 17:39 10/12/20 17:40 Temperature Temperature Source Pulse Rate 76 79 83 Pulse Rate [Finger] Pulse Rate from SpO2 Sensor 76 80 83 Respiratory Rate 20 17 18 Respiratory Effort / Characteristics Respiratory Depth Blood Pressure 221/124 H 205/131 H Blood Pressure [Right Arm] Blood Pressure Mean 156 155 Blood Pressure Mean [Right Arm] Pulse Oximetry 99 99 100 Oxygen Delivery Method Sepsis Recent Fever Within 48 Hours Sepsis New/Unexplained Change in Mental Status Sepsis Action Taken by Nursing 10/12/20 17:50 10/12/20 18:00 10/12/20 18:01 Temperature Temperature Source Pulse Rate 88 89 92 H Pulse Rate [Finger] Pulse Rate from SpO2 Sensor 89 89 92 H Respiratory Rate 20 20 21 Respiratory Effort / Characteristics Respiratory Depth Blood Pressure 192/128 H 202/132 H Blood Pressure [Right Arm] Blood Pressure Mean 149 155 Blood Pressure Mean [Right Arm] Pulse Oximetry 100 100 100 Oxygen Delivery Method Sepsis Recent Fever Within 48 Hours Sepsis New/Unexplained Change in Mental Status Sepsis Action Taken by Nursing 10/12/20 18:10 10/12/20 18:20 10/12/20 18:30 Temperature Temperature Source Pulse Rate 96 H 98 H 107 H Pulse Rate [Finger] Pulse Rate from SpO2 Sensor 93 H 97 H 107 H Respiratory Rate 23 18 27 H Respiratory Effort / Characteristics Respiratory Depth Blood Pressure 201/132 H 214/127 H Blood Pressure [Right Arm] Blood Pressure Mean 155 156 Blood Pressure Mean [Right Arm] Pulse Oximetry 100 100 100 Oxygen Delivery Method Sepsis Recent Fever Within 48 Hours Sepsis New/Unexplained Change in Mental Status Sepsis Action Taken by Nursing 10/12/20 18:31 10/12/20 18:40 10/12/20 18:50 Temperature Temperature Source Pulse Rate 104 H 102 H 101 H Pulse Rate [Finger] Pulse Rate from SpO2 Sensor 104 H Respiratory Rate 32 H 19 21 Respiratory Effort / Characteristics Respiratory Depth Blood Pressure 215/131 H 235/151 H 220/140 H Blood Pressure [Right Arm] Blood Pressure Mean 159 179 166 Blood Pressure Mean [Right Arm] Pulse Oximetry 100 Oxygen Delivery Method Sepsis Recent Fever Within 48 Hours Sepsis New/Unexplained Change in Mental Status Sepsis Action Taken by Nursing 10/12/20 19:00 10/12/20 19:40 10/12/20 19:50 Temperature Temperature Source Pulse Rate 100 H 91 H 99 H Pulse Rate [Finger] Pulse Rate from SpO2 Sensor 98 H Respiratory Rate 24 27 H 19 Respiratory Effort / Characteristics Respiratory Depth Blood Pressure 177/120 H 205/118 H 195/126 H Blood Pressure [Right Arm] Blood Pressure Mean 139 147 149 Blood Pressure Mean [Right Arm] Pulse Oximetry 99 Oxygen Delivery Method Sepsis Recent Fever Within 48 Hours Sepsis New/Unexplained Change in Mental Status Sepsis Action Taken by Nursing Constitutional WD/WN, vitals as above Eyes EOM intact bilaterally ENMT external ear and nose normal, oropharynx normal Neck trachea midline Respiratory normal respiratory effort, lungs clear to auscultation Cardiovascular RRR, no murmur, no edema Gastrointestinal (Abdomen) normal bowel sounds, soft, nontender, no hepatosplenomegaly Musculoskeletal no cyanosis or clubbing, extremities motor strength 5/5 Skin no rashes, warm and dry Neurologic Alert and oriented x3. No focal motor deficits. Psychiatric Acting appropriately Course Course Patient was seen and examined Vital signs including blood pressure were reviewed medications list was verified with patient Labs were obtained, and a saline lock was established The patient was hydrated, given antiemetics and pain medication Imaging was performed and reviewed Upon reevaluation, the patient was resting comfortably. We discussed her results. The case was discussed with the [facility] hospitalist group. They kindly agreed to evaluate the patient for possible inpatient management. The patient remained stable in the emergency department. Consultations Consultation #1: [facility] hospitalist group Administered Medications Discontinued Medications Diphenhydramine HCl (Diphenhydramine 50 Mg/Ml Vial) 25 mg IV NOW STA Stop: 10/12/20 12:02 Last Admin: 10/12/20 12:59 Dose: 25 mg Documented by: [id number] Heparin Sodium (Porcine) (Heparin 100 Unit/Ml 5ml Flush) Confirm Administered Dose 5 ml .ROUTE .STK-MED ONE Stop: 10/12/20 15:20 Last Admin: 10/12/20 19:52 Dose: Not Given Documented by: [id number] Hydralazine HCl (Hydralazine Hcl 20 Mg/Ml Vial) 10 mg IV NOW STA Stop: 10/12/20 17:42 Last Admin: 10/12/20 17:59 Dose: 10 mg Documented by: [id number] Hydromorphone HCl (Hydromorphone Inj 0.5 Mg/0.5 Ml Syr) 0.5 mg IV NOW STA Stop: 10/12/20 15:34 Last Admin: 10/12/20 15:57 Dose: 0.5 mg Documented by: [id number] Sodium Chloride (Nss 1000ml) 1,000 mls @ 999 mls/hr IV .Q1H1M ONE Stop: 10/12/20 12:59 Last Infusion: 10/12/20 14:10 Dose: 0 mls/hr Documented by: [id number] Admin: 10/12/20 12:59 Dose: 999 mls/hr Documented by: [id number] Acetaminophen ([facility]) 1,000 mg in 100 mls @ 400 mls/hr IV NOW STA Stop: 10/12/20 12:13 Last Infusion: 10/12/20 13:25 Dose: 0 mls/hr Documented by: [id number] Admin: 10/12/20 12:59 Dose: 400 mls/hr Documented by: [id number] Ketorolac Tromethamine (Ketorolac 30 Mg/Ml Vial) 30 mg IV NOW ONE Stop: 10/12/20 14:29 Last Admin: 10/12/20 14:39 Dose: 30 mg Documented by: [id number] Metoclopramide HCl (Metoclopramide Hcl Inj 5 Mg/Ml 2 Ml Vial) 10 mg IV NOW STA Stop: 10/12/20 12:02 Last Admin: 10/12/20 12:59 Dose: 10 mg Documented by: [id number] Metoprolol Tartrate (Metoprolol Tartrate 1 Mg/Ml Vial) 5 mg IV NOW STA Stop: 10/12/20 17:12 Last Admin: 10/12/20 17:20 Dose: 5 mg Documented by: [id number] Medical Decision Making Medical Records Attestation: I reviewed the patient's medical records. Home Medications Current Medication List: was personally reviewed by me Laboratory Data Attestation: I reviewed the patient's lab results. Result diagrams: 10/12/20 11:38 10/12/20 11:38 Lab Results 10/12/20 10/12/20 10/12/20 Range/Units 11:38 11:38 11:38 WBC 7.75 (4.8-10.8) K/uL RBC 4.66 (4.2-5.4) M/uL Hgb 15.0 (12.0-16.0) g/dL Hct 42.5 (37-47) % MCV 91.2 (80-100) fL MCH 32.2 (25-34) pg MCHC 35.3 (32-36) g/dL RDW Std Deviation 45.4 (36.4-46.3) fL RDW Coeff of Meg 13.8 (11.5-14.5) % Plt Count 217 (130-400) K/uL MPV 10.4 (7.4-10.4) fL Immature Gran % (Auto) 0.3 % Neut % (Auto) 73.5 % Lymph % (Auto) 21.2 % [place] % (Auto) 3.9 % Eos % (Auto) 0.8 % Baso % (Auto) 0.3 % Neut # (Auto) 5.71 (1.4-6.5) K/uL Lymph # (Auto) 1.64 (1.2-3.4) K/uL [place] # (Auto) 0.30 (0.11-0.59) K/uL Eos # (Auto) 0.06 (0-0.5) K/uL Baso # (Auto) 0.02 (0-0.2) K/uL Immature Gran # (Auto) 0.02 (0.00-0.02) K/uL Sodium 142 (136-145) mmol/L Potassium 4.0 (3.5-5.1) mmol/L Chloride 112 H (98-107) mmol/L Carbon Dioxide 23 (21-32) mmol/L Anion Gap 7.0 (3-11) BUN 15 (7-18) mg/dl Creatinine 0.78 (0.6-1.2) mg/dl Est Cr Clr Drug Dosing 123.1 ml/min Est GFR ( Amer) 111.0 Est GFR (Non-Af Amer) 95.8 BUN/Creatinine Ratio 19.3 (10-20) Glucose 90 (70-99) mg/dl Calcium 9.1 (8.5-10.1) mg/dl Phosphorus 3.2 (2.5-4.9) mg/dl Magnesium 2.1 (1.8-2.4) mg/dl Total Bilirubin 0.5 (0.2-1) mg/dl AST 17 (15-37) U/L ALT 27 (12-78) U/L Alkaline Phosphatase 68 (45-117) U/L Troponin I < 0.015 (0-0.045) ng/ml Total Protein 7.5 (6.4-8.2) gm/dl Albumin 4.1 (3.4-5.0) gm/dl Globulin 3.4 (2.5-4.0) gm/dl Albumin/Globulin Ratio 1.2 (0.9-2) COVID-19 Eval Order SARS-CoV-2, RNA, NAAT (NEGATIVE) 10/12/20 10/12/20 Range/Units 18:46 18:46 WBC (4.8-10.8) K/uL RBC (4.2-5.4) M/uL Hgb (12.0-16.0) g/dL Hct (37-47) % MCV (80-100) fL MCH (25-34) pg MCHC (32-36) g/dL RDW Std Deviation (36.4-46.3) fL RDW Coeff of Meg (11.5-14.5) % Plt Count (130-400) K/uL MPV (7.4-10.4) fL Immature Gran % (Auto) % Neut % (Auto) % Lymph % (Auto) % [place] % (Auto) % Eos % (Auto) % Baso % (Auto) % Neut # (Auto) (1.4-6.5) K/uL Lymph # (Auto) (1.2-3.4) K/uL [place] # (Auto) (0.11-0.59) K/uL Eos # (Auto) (0-0.5) K/uL Baso # (Auto) (0-0.2) K/uL Immature Gran # (Auto) (0.00-0.02) K/uL Sodium (136-145) mmol/L Potassium (3.5-5.1) mmol/L Chloride (98-107) mmol/L Carbon Dioxide (21-32) mmol/L Anion Gap (3-11) BUN (7-18) mg/dl Creatinine (0.6-1.2) mg/dl Est Cr Clr Drug Dosing ml/min Est GFR ( Amer) Est GFR (Non-Af Amer) BUN/Creatinine Ratio (10-20) Glucose (70-99) mg/dl Calcium (8.5-10.1) mg/dl Phosphorus (2.5-4.9) mg/dl Magnesium (1.8-2.4) mg/dl Total Bilirubin (0.2-1) mg/dl AST (15-37) U/L ALT (12-78) U/L Alkaline Phosphatase (45-117) U/L Troponin I (0-0.045) ng/ml Total Protein (6.4-8.2) gm/dl Albumin (3.4-5.0) gm/dl Globulin (2.5-4.0) gm/dl Albumin/Globulin Ratio (0.9-2) COVID[facility]19 [facility], RNA, NAAT NEGATIVE (NEGATIVE) Imaging Data Attestation: I personally reviewed and interpreted this imaging study as follows: Radiologist's Impression: X-ray KUB IMPRESSION: Normal bowel gas pattern. ACT 112: Negative or not required by law. Electronically signed by: Reilly Hughes M.D. 10/12/2020 12:19 PM Dictated: 10/12/20 1215 Transcribed: 10/12/[address] head without contrast No acute intracranial abnormality. ACT 112: Negative or not required by law. Electronically signed by: Abhijit De La Rosa M.D. 10/12/2020 4:28 PM Dictated: 10/12/20 1619 Transcribed: 10/12/20 161 ECG Data Attestation: I personally reviewed and interpreted this ECG as follows: Indication: other Rate (beats per minute): 74 Rhythm: normal sinus Additional Comments: No ST depression or elevation noted. No ectopy. No prior for comparison. MDM Narrative Differential diagnosis: Gastroparesis, chronic pain, drug-seeking behavior, bowel obstruction, pancreatitis, among others were considered This patient is a 39-year-old female who presents emergency department with a main complaint of epigastric abdominal pain that has gotten progressively worse. On exam, she was significantly hypertensive. Her abdomen was fairly benign. The patient just had a CAT scan 1 month ago; therefore, another one was not ordered today. Her labs are unremarkable. She did however remain significantly hypertensive. Despite medications, she failed to respond. A CT of the head was performed as the patient thought that she was possibly confused this morning. This was negative. EKG was performed. No signs of ischemia or infarction were noted. Troponin is negative. Due to the fact that I could not control the blood pressure or abdominal pain, the patient will be evaluated by the hospitalist service for possible inpatient management. Impression & Plan Abdominal pain Discharge Plan Visit Data Chief Complaint: Abdominal Pain Stated Complaint: CONFUSION, ABD PAIN ED Provider: Andrey Waggoner ED Midlevel Provider: Shalini Samuel Discharge Problem: Abdominal pain Patient Disposition: Home - Self-Care Condition: Good Discharge Instructions Activity Restrictions/Additional Instructions: Stay well-hydrated with sports drinks such as Gatorade. I would stick to a clear liquid diet for 24 hours. If you are feeling better after 24 hours, you may advance the diet to a bland diet. Continue medications as prescribed. Please follow-up with your specialist as scheduled please follow-up with your primary care physician in the next 2-3 days to be rechecked Return to the emergency department if you have any of the following symptoms: -Fever of 103F or greater -Persistent vomiting - Persistent diarrhea -Lethargy -Chest pain -Shortness of breath -Worsening abdominal pain It was a pleasure participating in your care today Forms Stand Alone Forms: My [facility], Virtual Emergency Department, Important Visit Information Prescriptions Prescriptions: No Action baclofen 20 mg Tablet 20 mg PO TID PRN (Reason: abdominal pian) Qty: 20 RF: 0 gabapentin 300 mg Capsule 900 mg PO TID Qty: 30 RF: 0 Linzess 145 mcg Capsule 145 mcg PO DAILYBB Qty: 30 RF: 0 venlafaxine 150 mg capsule,extended release 24hr 300 mg PO QAM RF: 0 levothyroxine 25 mcg tablet 25 mcg PO QAM RF: 0 famotidine 20 mg tablet 20 mg PO BID RF: 0 pantoprazole 40 mg tablet,delayed release (DR/EC) 40 mg PO BID 30 Days Qty: 60 RF: 1 amlodipine 10 mg tablet 10 mg PO QAM RF: 0 metoprolol tartrate 25 mg tablet 25 mg PO QAM RF: 0 Referrals Referrals: Saravanan Gooden MD [Primary Care Provider] -
[2020-10-12 12:16] LABS: Basophils # (auto) 0.02 K/uL (0-0.2); Basophils % (auto) 0.3 %; Eosinophils # (auto) 0.06 K/uL (0-0.5); Eosinophils % (auto) 0.8 %; Hematocrit (blood only) 42.5 % (37-47); Immature Granulocytes # (auto) 0.02 K/uL (0.00-0.02); Immature Granulocytes % (auto) 0.3 %; Lymphocytes # (auto) 1.64 K/uL (1.2-3.4); Lymphocytes % (auto) 21.2 %; Mean Corpuscular Hemoglobin 32.2 pg (25-34); Mean Corpuscular Hgb Conc 35.3 g/dL (32-36); Mean Corpuscular Volume 91.2 fL (80-100); Mean Platelet Volume 10.4 fL (7.4-10.4); Monocytes % (auto) 3.9 %; Neutrophils # (auto) 5.71 K/uL (1.4-6.5); Neutrophils % (auto) 73.5 %; Platelet Count 217 K/uL (130-400); RDW Coefficient of Variation 13.8 % (11.5-14.5); RDW Standard Deviation 45.4 fL (36.4-46.3); Red Blood Count 4.66 M/uL (4.2-5.4); White Blood Count 7.75 K/uL (4.8-10.8)
--- NOTE | 2020-10-12 12:21 | XRay Report ---
XR KUB/Abdomen 1 view CLINICAL HISTORY: abd pain gastroparesis COMPARISON STUDY: 08/28/2020 FINDINGS: The bowel gas pattern is normal. There are surgical clips within the right upper quadrant c onsistent with a prior cholecystectomy. There are no calcifications suspicious for urinary tract calc luis. IMPRESSION: Normal bowel gas pattern. ACT 112: Negative or not required by law. Electronically signed by: Reilly Hughes M.D. 10/12/2020 12:19 PM
[2020-10-12 13:06] LABS: Albumin Globulin Ratio 1.2 (0.9-2); Albumin Level 4.1 gm/dl (3.4-5.0); BUN Creatinine Ratio 19.3 (10-20); Bilirubin,Total 0.5 mg/dl (0.2-1); Calcium 9.1 mg/dl (8.5-10.1); Creatinine Clr Calc Pharmacy 123.1 ml/min; Est GFR (Non-African American) 95.8; Globulin 3.4 gm/dl (2.5-4.0); Magnesium 2.1 mg/dl (1.8-2.4); Phosphorus 3.2 mg/dl (2.5-4.9); Total Protein 7.5 gm/dl (6.4-8.2)
[2020-10-12] MEDS ORDERED: KETOROLAC 30 MG/ML VIAL IV ONE (14:28)
[2020-10-12] MEDS ORDERED: HEPARIN 100 UNIT/ML 5ML FLUSH ONE (15:19)
[2020-10-12] MEDS ORDERED: HYDROmorphone INJ 0.5 MG/0.5 ML SYR IV STA ×2 (15:33→20:28)
--- NOTE | 2020-10-12 16:30 | CT Scan Report ---
HEAD CT NONCONTRAST CT DOSE: 638.56 mGycm HISTORY: HbP reported disorientation TECHNIQUE: Multiaxial CT images of the head were performed without the use of intravenous contrast. A utomated exposure control was utilized for this study. A dose lowering technique was utilized adheri ng to the principles of ALARA. Comparison: Head CT 08/15/2020. 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 Otherwise, the remaining paranasal sinu ses and mastoid air cells are clear. The calvarium and skull base are intact. The ventricles and sulc i are within normal limits. There is no mass, hematoma, midline shift, or acute infarct. Impression: No acute intracranial abnormality. ACT 112: Negative or not required by law. Electronically signed by: Abhijit De La Rosa M.D. 10/12/2020 4:28 PM
[2020-10-12] MEDS ORDERED: METOPROLOL TARTRATE 1 MG/ML VIAL IV STA (17:11)
[2020-10-12] MEDS ORDERED: hydrALAZINE HCL 20 MG/ML VIAL IV STA (17:41)
--- NOTE | 2020-10-12 17:49 | Electrocardiogram Report ---
Test Reason : Blood Pressure : / mmHG Vent. Rate : 074 BPM Atrial Rate : 074 BPM P-R Int : 158 ms QRS Dur : 094 ms QT Int : 410 ms P-R-T Axes : 070 046 058 degrees QTc Int : 455 ms Normal sinus rhythm Normal ECG When compared with ECG of 25-AUG-2020 17:43, No significant change was found Confirmed by Kd Mayers ([id number]) on 10/12/2020 5:48:57 PM Referred By: Saravanan Gooden Confirmed By:Flavio Mayers
[2020-10-12] MEDS ORDERED: lisinopril 5 MG TAB PO ONE (19:57)
--- NOTE | 2020-10-12 20:10 | History & Physical Report ---
Date of Service October 12, 2020 Assessment & Plan (1) Abdominal pain: Danuta Rader is a 39-year-old female with a past medical history of gastric ulcers, hypertension, hypothyroidism, chronic pain, lupus, tension headache, and fibromyalgia who presents with abdominal pain that has been p rogressively worsening over the past week. Abdominal Pain - Admit to PCU - Oxycodone 5mg q4h PRN - APAP prn - Avoid NSAIDs due to h/o gastric ulcers - Continue Linzess 145mcg PO daily--patient had been prescribed this but pending prior auth so had not started at home - Continue home Famotidine & Pantoprazole - Continue home baclofen prn abd pain - Miralax 17g PO daily - GI consulted - Mesenteric duplex ordered in AM Hypertension - Refractory to home meds and multiple meds in ED - Lisinopril 10mg x1 - Continue home amlodipine and metoprolol tartrate - Will admit to PCU for close monitoring History of Gastric Ulcers - As above continue PPI and Famotidine - Avoid NSAIDs Hypothyroidism - Continue home levothyroxine Fibromyalgia - Continue home gabapentin Depression - Continue home venlafaxine FENGI: Heart healthy DVT ppx: Lovenox 40mg SQ daily Dispo: Admit to PCU CODE STATUS: Full (2) HTN (hypertension): (3) Depression: (4) Hypothyroidism: (5) Fibromyalgia: (6) Peptic ulcer disease: History of Present Illness Chief Complaint: Abdominal pain Primary Care Provider: Saravanan Gooden MD Danuta Rader is a 39-year-old female with a past medical history of gastric ulcers, hypertension, hypothyroidism, chronic pain, lupus, tension headache, and fibromyalgia who presents with abdominal pain that has been progressively worsening over the past week. She has had multiple admissions and clinic visits for similar complaints but so far studies have turned up no clear cause. She reports a history of gastroparesis but has had a previously normal gastric emptying study on past admissions for similar complaints. She has had consistently normal KUBs, Abd CTs. She has seen multiple gastroenterologists, last seen at [facility] where they recommended a mesenteric duplex to evaluate for ischemia. She last had EGD on 07/10/20 showing retained food in gastric fundus, diffuse severe inflammation w/ erythema, serpentine ulcerations and shallow ulcerations. Testing negative for H.pylori. Had colonoscopy on the same date with poor preparation, only external hemorrhoids noted. Biopsies of left and right colon unremarkable. As above, gastric emptying study done on 08/27/20 was normal. She currently rates her pain as a 10/10. Also reports nausea but no vomiting. Tried Tylenol with no relief. Also reports some confusion starting today. Says it has been difficult for her to remember things that are normally second nature to her--states she spent an hour today trying to explain to her mother how to get somewhere that she regularly visits. In the ED the patient was found to have elevated blood pressure in the 220s/100s, for which she received hydralazine 10mg IV and Lopressor 5mg IV with minimal improvement. She also received Tylenol 1000mg IV x1, Toradol 30mg IV x1, Dilaudid 0.5mg IV x1, Reglan 10mg IV x1, and Benadryl 25mg IV x1. Allergies Allergy/AdvReac Type Severity Reaction Status Date / Time Sulfa (Sulfonamide Allergy Intermediate LUPUS Verified 10/12/20 14:55 Antibiotics) FLARE UP dexamethasone Allergy Unknown HIVES Verified 10/12/20 14:55 duloxetine Allergy Unknown UNKNOWN Verified 10/12/20 14:55 escitalopram Allergy Unknown UNKNOWN Verified 10/12/20 14:55 latex Allergy Unknown HIVES Verified 10/12/20 14:55 morphine Allergy Unknown local Verified 10/12/20 14:55 reaction at site pregabalin Allergy Unknown UNKNOWN Verified 10/12/20 14:55 Home Medications Medication Instructions Recorded Confirmed Type levothyroxine 25 mcg PO QAM 07/10/19 10/12/20 History venlafaxine 300 mg PO QAM 07/10/19 10/12/20 History famotidine 20 mg PO BID 07/18/20 10/12/20 History pantoprazole 40 mg PO BID 30 Days #60 tab 08/15/20 10/12/20 Rx baclofen 20 mg PO TID PRN #20 tab 08/30/20 10/12/20 Rx gabapentin 900 mg PO TID #30 cap 08/30/20 10/12/20 Rx linaclotide [Linzess] 145 mcg PO DAILYBB #30 cap 08/30/20 10/12/20 Rx amlodipine 10 mg PO QAM 10/12/20 10/12/20 History metoprolol tartrate 25 mg PO QAM 10/12/20 10/12/20 History Past Med/Surg History Medical History Anxiety Chronic pain syndrome Depression Fibromyalgia Gastritis Gastroparesis History of kidney infection History of lupus anticoagulant disorder History of migraine History of multiple miscarriages History of ovarian cyst History of umbilical hernia Hypertension Hypothyroidism Intractable epigastric abdominal pain Lupus (04/04/14) Lupus nephritis Osteoarthritis Peptic ulcer disease Pleuritis (09/17/14) history of Post traumatic stress disorder Pulmonary embolism history of Surgical History H/O: hysterectomy History of tonsillectomy and adenoidectomy Hx of appendectomy Hx of cholecystectomy Port-A-Cath in place (08/29/20) Mediport Placement, Left Subclavian Vein Dr. Garcia 08/29/2020 Family History Sister SLE (systemic lupus erythematosus) Family/Other SLE (systemic lupus erythematosus) maternal side Social History Smoking Status: Former smoker Tobacco Type: Cigarettes Age Started Using Tobacco: 23; Age Quit Using Tobacco: 39; Second Hand Exposure: No; Do You Dip or Chew Tobacco: No; Tobacco Cessation Education Requested by Patient: No Hx Alcohol Use: Yes Alcohol type: beer Hx Substance Use: Yes Last Used Substance: Days (ago) Substance Use Type Other:: HISTORY OF PRESCRIPTION USE Preferred Language: Romanian Communication Ability: Effective Detail Manager Required: No Beliefs That Will Affect Care: None marital status: Single Current Living Situation: Family Current Living Situation Comment: [facility] in [place] current occupational status: employed 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 How many Children do You have: 2 Other Information That Helps Us Care for You: No Feels Safe at Home: Yes Safety Concerns: Feels Safe At This Time Assistive Devices: Glasses Review of Systems Review of Systems: All systems reviewed & are unremarkable except as noted in HPI & below Physical Exam Constitutional: WD/WN, vitals as above + in distress (complaining of abd pain) Eyes: PERRL, conjunctivae normal, anicteric sclerae ENMT: external ear and nose normal, oropharynx normal Neck: normal visual inspection Respiratory: normal respiratory effort, lungs clear to auscultation Auscultation: no crackles, no rhonchi and no wheezes Cardiovascular: Rate/Rhythm: regular rhythm and + tachycardic Heart Sounds: normal S1 and normal S2 Gastrointestinal (Abdomen): Inspection/Auscultation: abdomen normal to inspection and + hypoactive bowel sounds; abdomen not distended Percussion/Palpation: + abdomen tender and abdomen soft; no guarding and abdomen not rigid Musculoskeletal: no cyanosis or clubbing, extremities motor strength 5/5 Skin: no rashes, warm and dry Neurologic: CN's II-XI intact bilaterally Psychiatric: Orientation: alert and oriented x 3 Affect: + tearful affect Results & Data Results & Data ([facility]) Vital Signs (Past 12 Hours) Vital Signs Temp Pulse Pulse Resp BP BP Pulse Ox 10/12/20 19:50 99 H 19 195/126 H 99 10/12/20 19:40 91 H 27 H 205/118 H 10/12/20 19:00 100 H 24 177/120 H 10/12/20 18:50 101 H 21 220/140 H 10/12/20 18:40 102 H 19 235/151 H 10/12/20 18:31 104 H 32 H 215/131 H 100 10/12/20 18:30 107 H 27 H 100 10/12/20 18:20 98 H 18 214/127 H 100 10/12/20 18:10 96 H 23 201/132 H 100 10/12/20 18:01 92 H 21 100 10/12/20 18:00 89 20 202/132 H 100 10/12/20 17:50 88 20 192/128 H 100 10/12/20 17:40 83 18 205/131 H 100 10/12/20 17:39 79 17 221/124 H 99 10/12/20 17:31 76 20 99 10/12/20 17:30 77 20 173/113 H 99 10/12/20 17:25 77 20 184/132 H 98 10/12/20 17:20 78 24 201/117 H 98 10/12/20 17:15 98 H 19 179/147 H 100 10/12/20 17:01 103 H 19 100 10/12/20 17:00 100 H 17 194/131 H 100 10/12/20 16:46 93 H 25 H 207/109 H 99 10/12/20 16:31 93 H 24 100 10/12/20 16:30 93 H 29 H 216/126 H 100 10/12/20 16:01 87 19 99 10/12/20 16:00 87 26 H 186/110 H 100 10/12/20 15:58 94 H 26 H 98 10/12/20 15:56 84 25 H 196/122 H 99 10/12/20 14:39 93 H 16 224/130 H 100 10/12/20 11:12 36.4 C L 105 H 18 221/101 H 99 Supervising Physician Co-Signing Physician Notes Patient seen and examined at bedside. Obtained history and physical during face to face encounter. Discussed plan of care with patient and Dr. Velazquez. I reviewe above note and agree with it. Will admit patient and closely monitor pain. will try to limit narcotics. will consult GI. Resident Activity Tracking Resident Involvement: Resident Care Provided Care Provided: Adult Hospital Medicine
[2020-10-12] MEDS ORDERED: lisinopril 10 MG TAB PO ONE (20:15)
[2020-10-12] MEDS ORDERED: HYDROmorphone INJ 0.5 MG/0.5 ML SYR ONE (20:45)
[2020-10-12] MEDS ORDERED: ONDANSETRON INJ 2 MG/ML 2 ML VIAL IV PRN (21:28)
[2020-10-12] MEDS ORDERED: oxyCODONE HCL SOLN 5 MG/5 ML UDC PO PRN (21:28)
[2020-10-12] MEDS ORDERED: ALUMINUM/MAGNESIUM SUSP 30 ML UDC PO PRN (21:28)
[2020-10-12] MEDS ORDERED: ACETAMINOPHEN 325 MG TAB PO PRN (21:28)
[2020-10-12] MEDS ORDERED: MoRPHine SULFATE 2 MG/ML CARP IV STA (21:38)
[2020-10-12] MEDS ORDERED: MoRPHine SULFATE 2 MG/ML CARP IV PRN (21:41)
[2020-10-12] MEDS: GABAPENTIN 300 MG CAP PO SCH (22:19)
[2020-10-12] MEDS: FAMOTIDINE 20 MG TAB PO SCH (22:19)
[2020-10-12] MEDS: PANTOprazole 40 MG TAB PO SCH (22:19)
[2020-10-12] MEDS: BACLOFEN 20 MG TAB PO PRN (22:20)
[2020-10-12] MEDS ORDERED: HYDROmorphone INJ 1 MG/ML SYRINGE IV STA (22:40)
[2020-10-12 23:16] LABS: Amphetamines+Metham, Urine Neg (Neg); Barbiturates, Urine Neg (Neg); Benzodiazepine, Urine Neg (Neg); Cocaine, Urine Neg (Neg); MDMA (Ecstacy), Urine Neg (Neg); Methadone, Urine Neg (Neg); Opiate, Urine Neg (Neg); Phencyclidine, Urine Neg (Neg)
[2020-10-13] MEDS ORDERED: HEPARIN 100 UNIT/ML 5ML FLUSH FLUSH PRN (00:13)
[2020-10-13] MEDS ORDERED: MoRPHine SULFATE 4 MG/ML 1 ML CARP\\VIAL ONE (04:12)
[2020-10-13] MEDS: LINACLOTIDE 145 MCG CAPSULE PO SCH (05:12)
[2020-10-13] MEDS: LEVOTHYROXINE SODIUM 25 MCG TABLET PO SCH (05:12)
[2020-10-13] MEDS: MoRPHine SULFATE 4 MG/ML 1 ML CARP\\VIAL IV PRN ×2 (07:53→11:07)
[2020-10-13] MEDS: GABAPENTIN 300 MG CAP PO SCH ×3 (07:58→20:17)
[2020-10-13] MEDS: FAMOTIDINE 20 MG TAB PO SCH ×2 (07:59→20:18)
[2020-10-13] MEDS: PANTOprazole 40 MG TAB PO SCH ×2 (08:00→20:17)
[2020-10-13] MEDS: VENLAFAXINE HCL XR 150 MG CAPXR PO SCH (08:00)
[2020-10-13] MEDS: METOPROLOL TARTRATE 25 MG TAB PO SCH (08:01)
[2020-10-13] MEDS: ENOXAPARIN INJ 40 MG/0.4 ML SYR SQ SCH (08:01)
[2020-10-13] MEDS: POLYETHYLENE (MIRALAX) 17 GM PACK PO SCH (08:02)
[2020-10-13] MEDS ORDERED: amLODIPine BESYLATE 5 MG TAB PO SCH (09:00)
[2020-10-13] MEDS ORDERED: SOD PHOSPHATE/SOD BIPHOSPHATE ENEMA 132 ML BTL PR PRN (10:56)
--- NOTE | 2020-10-13 11:30 | Consultation Report ---
DATE OF CONSULTATION: 10/13/2020 REASON FOR CONSULTATION: Abdominal pain. HISTORY OF PRESENT ILLNESS: The patient is a 39-year-old with chronic intermittent abdominal pain of unclear etiology probably functional dyspepsia. The patient has had an extensive evaluation over the past year to 2 and has been hospitalized here month ago with the same problem. She has had multiple medication trials for 5 years. She was on opioids and was finally able to get off of it; at one point, it was suspected that she might have gastroparesis, because there was some retained food on an EGD, but a formal gastric emptying test was negative. She has had EGD, colonoscopies, CAT scans, mesenteric Dopplers, angiograms, tests for celiac disease, porphyria. She has had trials of injections without relief. She was tried on Elavil, but it made her migraines worse. She was recently switched to nortriptyline in addition to her flexor, but has not yet started it. She was also prescribed Linzess for constipation, but has yet to start that as well. Her last bowel movement was 3 days ago. She does have an appointment on 10/19/2020 at [facility] to follow up there with a video editing internship who had ordered a mesenteric Doppler which was done here and appears to be normal. PAST MEDICAL HISTORY: Remarkable for depression, fibromyalgia, chronic pain syndrome, migraines, multiple miscarriages. She has no ovarian cyst, hypothyroidism, hypertension, lupus, history of pulmonary embolism. She has had a hysterectomy, tonsillectomy, appendectomy, cholecystectomy and 2 C-sections. PHYSICAL EXAMINATION: GENERAL: The patient is overweight, in no acute distress. VITAL SIGNS: Blood pressure is 162/95, pulse 82. ABDOMEN: Shows low transverse scar and laparoscopic scars. There is mild tenderness throughout the abdomen. No localized mass is appreciated. IMPRESSION: The patient has recurrent chronic abdominal pain of unclear etiology, probably functional dyspepsia. She has had extensive evaluation in the past with no etiology found. She was tried on Elavil for functional dyspepsia, but it made her migraines worse and she was recently given a prescription for nortriptyline to try which she has not started yet. I would recommend that this be started, but it may take up to 2 weeks to start to see any benefit and you may have to accelerate the dose to get some response, I would strongly encourage her to keep her appointment at [facility] with Dr. Doty at [facility] on 10/19/2020 and in the meantime, I ordered Fleet enemas daily until her bowels move, as she has gone 3 days now without a bowel movement.
--- NOTE | 2020-10-13 11:39 | Ultrasound Report ---
DOPPLER ULTRASOUND OF THE MESENTERIC VASCULATURE CLINICAL HISTORY: Generalized abdominal pain. COMPARISON STUDY: Abdominal CT dated 08/25/2020. FINDINGS: Real-time, grayscale, and color Doppler sonography of the mesenteric vasculature is perform ed. The abdominal aorta is widely patent with velocities measuring up to 95 cm/s. The celiac trunk is widely patent with velocities measuring up to 191 cm/s in expiration and 170 cm/s with inspiration. The superior mesenteric artery is widely patent with velocities measuring up to 161 cm/s. The hepati c artery is patent with velocities measuring up to 86 cm/s, and the splenic artery is patent with valdo ocities measuring up to 75 cm/s. The inferior mesenteric artery is patent with velocities measuring u p to 123 cm/s. IMPRESSION: Normal Doppler assessment of the mesenteric vasculature. Dictated: 10/13/2020 10:30 AM Transcribed: 10/13/2020 11:35 AM Belia [id number] [email or web address] Electronically signed by: Abel Aragon M.D. 10/13/2020 11:37 AM
[2020-10-13] MEDS ORDERED: oxyCODONE HCL IR 5 MG TAB (IMMEDIATE RELEASE) PO PRN (13:48)
--- NOTE | 2020-10-13 14:39 | Hospitalist Progress Note ---
Date of Service October 13, 2020 Assessment & Plan (1) Abdominal pain: Danuta Rader is a 39-year-old female with a past medical history of gastric ulcers, hypertension, hypothyroidism, chronic pain, lupus, tension headache, and fibromyalgia who presents with abdominal pain that has been p rogressively worsening over the past week. Abdominal Pain -Unclear etiology - Continue with Oxycodone 5mg q4h PRN and tylenol prn - Avoid NSAIDs due to h/o gastric ulcers - Continue Linzess 145mcg PO daily--patient had been prescribed this but pending prior auth so had not started at home - Continue home Famotidine & Pantoprazole - Continue home baclofen prn - Miralax 17g PO daily - GI consulted- appreciate recs of enema - Mesenteric duplex oreder-unremarkable Hypertension -currently on lower end, will hold AM meds - Refractory to home meds and multiple meds in ED on admission - Lisinopril 10mg x1 - continue to closely monitor History of Gastric Ulcers - As above continue PPI and Famotidine - Avoid NSAIDs Hypothyroidism - Continue home levothyroxine Fibromyalgia - Continue home gabapentin Depression - Continue home venlafaxine FENGI: Heart healthy DVT ppx: Lovenox 40mg SQ daily Dispo: Admit to PCU CODE STATUS: Full (2) HTN (hypertension): (3) Depression: (4) Hypothyroidism: (5) Fibromyalgia: (6) Peptic ulcer disease: Admission and Anticipated Discharge Date Admission Date: October 12, 2020 Supervising Physician Co-Signing Physician Notes Attending attestation Pt seen and examined in concert with Dr. Moreno. In agreement with the documented findings as noted in the resident documentation with any exceptions or additions as noted here. Well controlled pain at present with patient able to ambulate and function without difficulty. Patient attests that she does have gastroparesis though reports of documented emptying study does not support this, will confirm on record review. On examination, S1/S2 nl RRR no MCG. CTAB. Abd ND BS+ve, mild c/o TTP without guarding Chronic abdominal pain with recurrence - GI consultation - extensive prior evaluation without apparent etiology with some confusion from patient on conversation which we will attempt to clear up with chart review today. Continue pain management with oxycodone & baclofen and addition of linzess, as well as H2 and PPI therapy. In addition to chronic miralax therapy, enemas as recommended by GI for lack of BM. Mesenteric duplex reviewed without ischemic pathology. HTN - continue present regimen Else see resident documentation as noted. Subjective Pt seen this AM. States she did not like the liquid oxycodone and instead got the morphine which helped her pain. Her N/V has gotten better. Review of Systems Constitutional: no fever, no chills and no sweats Respiratory: no cough and no dyspnea Cardiovascular: no chest pain Gastrointestinal: + abdominal pain; no nausea and no vomiting Physical Exam Physical Exam: General: Alert, oriented. No acute distress Skin: No noted rashes or bruises Psych: Appropriate mood and affect Neuro: No gross deficits HEENT: NC/AT Chest: Nontender to palpation. CV: RRR, Normal s1, s2. No murmurs appreciated Resp: Breath sounds clear bilaterally, no increased effort of breathing. No crackles/rhonchi/rales. Abdomen: Soft, diffusely tender to palpation, nondistended. Extremities: No edema in lower extremities bilaterally. Results & Data Results & Data ([facility]) Vital Signs (Past 12 Hours) Vital Signs Temp Pulse Pulse Resp BP Pulse Ox Pulse Ox 10/13/20 11:48 36.9 C 66 18 133/79 95 10/13/20 09:19 80 10/13/20 09:17 96 10/13/20 07:31 36.8 C 77 17 169/90 H 96 10/13/20 03:19 36.7 C 85 18 152/94 H 97 Resident Activity Tracking Resident Involvement: Resident Care Provided Care Provided: [facility]
[2020-10-13] MEDS: BACLOFEN 20 MG TAB PO PRN (20:36)
[2020-10-13] MEDS ORDERED: NALOXONE HCL 0.4 MG/1 ML VIAL/CARP ONE ×2 (23:18→23:24)
[2020-10-13] MEDS ORDERED: NALOXONE HCL 0.4 MG/1 ML VIAL/CARP IV ONE (23:20)
[2020-10-13] MEDS ORDERED: RAPID SEQUENCE INDUCTION BAG ONE (23:23)
[2020-10-13] MEDS ORDERED: STAT IV Infusion **Titration per Protocol STA (23:30)
[2020-10-13] MEDS ORDERED: NALOXONE HCL 1 MG in SODIUM CHLORIDE 0.9% 1000ML 1,000 ML IV PRN (23:33)
[2020-10-13] MEDS: NALOXONE HCL 5 MG in 0.9 % SODIUM CHLORIDE 100 ML IV SCH (23:48)
[2020-10-13] MEDS ORDERED: NALOXONE HCL 0.4 MG/1 ML VIAL/CARP IV STA (23:56)
--- NOTE | 2020-10-14 00:02 | Critical Care Consultation ---
Date of Consultation October 14, 2020 Assessment & Plan (1) Admitted to intensive care unit: Reason Critically Ill: 39-year-old female initially admitted for abdominal pain with unknown etiology, became intermittently unresponsive and code purple called. Given Narcan and transferred to ICU where she eventually required intubation and now mechanically ventilated. Neuro - AMSunsure of etiology at this time. Patient did admit to taking additional baclofen from purse earlier in the afternoon, cannot rule out potential overdose at this time. -Now holding Roxicodone, gabapentin, baclofen -1.6 mg Narcan administered and was started on Narcan drip without significant benefit. Required intubation for airway support -Propofol and prn Ativan for sedation while mechanically ventilated -CT head negative -Repeat UDS pending (positive marijuana on admission), ammonia within normal limits, euglycemic, BUN within normal limits. Salicylate and acetaminophen levels undetectable -Follow-up MRI report -Consult neurology -Consider EEG if work-up unremarkable Cardiac - NSR on monitor. Hemodynamically stable without use of vasopressors EKG 10/12 NSR with normal intervals, normal QRS complexes, no ST elevation or depression, and no arrhythmias. -Troponin negative on admission Continuous monitoring on telemetry HTNcontinue home meds -As needed labetalol added for refractory hypertension Respiratory - Mechanically ventilatedintubated for airway security due to neurological status and abnormal respiration/RR. No hypoxia or respiratory distress -Vent settings: 16/450/5/30 percent -Continuous monitor on pulse ox GI - Abdominal pain (chronic)unknown etiology. Evaluated and management per GI recommendations. -Mesenteric ultrasound and KUB unremarkable -Constipation without BM for 3 days, was undergoing Fleet enema. Will start bowel regimen while intubated -Plan to follow-up as outpatient at [facility] History gastric culturescontinue PPI and famotidine RENAL/LYTES - Creatinine and electrolytes within normal limits, monitor routine BMPs NSS at 80 mL/h - Foleystrict I's and O's ENDO - No history of diabetes, ICU hyperglycemic protocol Hypothyroidcontinue Synthroid HEME - H&H within normal limits, monitor routine CBC ID - No indication for infectious process at this time, monitor fever curve LINES/IV ACCESS - Left subclavian port placed 08/[address] Garcia. Peripheral IVs DVT PROPHYLAXIS - SCDs, Lovenox I have personally spent 60 minutes of critical care time in the direct management of this patient. This is a life/limb threatening event. This includes time spent evaluating patient, direct bedside care, chart review, placing o rders, interpretation of diagnostic studies, discussion with consultants, patient, and family members, as well as other required patient management activities. This time is exclusive of all separately billable procedures, and teaching time and separate from and in addition to any other critical care service time. Thank you for allowing us to participate in the care of this patient. Please refer to my attending physician's documentation for any further recommendations. (2) Altered mental status: (3) History of lupus: (4) Hypothyroid: (5) HTN (hypertension): (6) Peptic ulcer disease: (7) Abdominal pain: (8) Fibromyalgia: (9) Abdominal pain: (10) Peptic ulcer disease: History of Present Illness Attending Physician: Deric Ryan MD History of Present Illness Patient is a 39-year-old female with PMH including gastric culture, HTN, hypothyroid, chronic pain, lupus, tension headache, and fibromyalgia. Patient was admitted to PCU and had undergone work-up for abdominal pain which had progressively worsened over the past week. She was seen by GI and etiology appears to be unclear, as this has been an ongoing issue for the past 2 years and patient has had multiple work-up/medication trials without improvement. See GI note for details. I responded to a code purple on PCU in which a patient was found to be AMS/obtunded and had been given 0.4 mg Narcan prior to arrival. Patient was obtunded and unarousable at that time an additional 0.4 mg of Narcan was administered. Iip-nrfux-rudt was started and and attempt at intubation was about to be attempted as the patient was having agonal breathing at a respiratory rate approximately 3-4 times per minute, when the patient awoke and was alert and oriented and appeared to be protecting her airway at the time. She was transferred to the ICU on a Narcan drip but continued to have episodes similar to this event in which she would become obtunded. It was also noted that her pupils were dilated and she had nystagmus. No other neurological abnormalities were noted on exam. Patient did admit to taking baclofen from her purse earlier that afternoon, and personal items were confiscated by security at that time. She was taken for CT the head which was negative. She did receive a total of 1.6 mg of Narcan but continued to have episodic periods where she was obtunded and was not maintaining a secured airway, and decision was made to proceed with intubation. ED physician presented to the bedside for assistance with intubation and patient was easily intubated without complications, see note for details. She is now mechanically ventilated and sedated. Plan for patient to undergo MRI. UDS and labs pending. Patient to remain in ICU for further management at this time. I did update the patient's family regarding her clinical status. Patient's boyfriend stated that she was experiencing a similar episode prior to arrival to the ED but he did not think she was having abnormal breathing at that time. Allergies Allergy/AdvReac Type Severity Reaction Status Date / Time Sulfa (Sulfonamide Allergy Intermediate LUPUS Verified 10/12/20 14:55 Antibiotics) FLARE UP dexamethasone Allergy Unknown HIVES Verified 10/12/20 14:55 duloxetine Allergy Unknown UNKNOWN Verified 10/12/20 14:55 escitalopram Allergy Unknown UNKNOWN Verified 10/12/20 14:55 latex Allergy Unknown HIVES Verified 10/12/20 14:55 morphine Allergy Unknown local Verified 10/12/20 14:55 reaction at site pregabalin Allergy Unknown UNKNOWN Verified 10/12/20 14:55 Home Medications Medication Instructions Recorded Confirmed Type levothyroxine 25 mcg PO QAM 07/10/19 10/12/20 History venlafaxine 300 mg PO QAM 07/10/19 10/12/20 History famotidine 20 mg PO BID 07/18/20 10/12/20 History pantoprazole 40 mg PO BID 30 Days #60 tab 08/15/20 10/12/20 Rx baclofen 20 mg PO TID PRN #20 tab 08/30/20 10/12/20 Rx gabapentin 900 mg PO TID #30 cap 08/30/20 10/12/20 Rx linaclotide [Linzess] 145 mcg PO DAILYBB #30 cap 08/30/20 10/12/20 Rx amlodipine 10 mg PO QAM 10/12/20 10/12/20 History metoprolol tartrate 25 mg PO QAM 10/12/20 10/12/20 History Patient History Medical History (Updated 10/14/20 @ 02:31 by RENETTA Bryant) Anxiety Chronic pain syndrome Depression Fibromyalgia Gastritis Gastroparesis History of kidney infection History of lupus anticoagulant disorder History of migraine History of multiple miscarriages History of ovarian cyst History of umbilical hernia Hypertension Hypothyroidism Intractable epigastric abdominal pain Lupus (04/04/14) Lupus nephritis Osteoarthritis Peptic ulcer disease Pleuritis (09/17/14) history of Post traumatic stress disorder Pulmonary embolism history of Surgical History H/O: hysterectomy History of tonsillectomy and adenoidectomy Hx of appendectomy Hx of cholecystectomy Port-A-Cath in place (08/29/20) Mediport Placement, Left Subclavian Vein Dr. Garcia 08/29/2020 Family History Sister SLE (systemic lupus erythematosus) Family/Other SLE (systemic lupus erythematosus) maternal side Social History Smoking Status: Former smoker Tobacco Type: Cigarettes Age Started Using Tobacco: 23; Age Quit Using Tobacco: 39; Second Hand Exposure: No; Do You Dip or Chew Tobacco: No; Tobacco Cessation Education Requested by Patient: No Hx Alcohol Use: Yes Alcohol type: beer Hx Substance Use: Yes Last Used Substance: Days (ago) Substance Use Type Other:: HISTORY OF PRESCRIPTION USE Preferred Language: Czech Communication Ability: Effective Coin Teller Required: No Beliefs That Will Affect Care: None marital status: Single Current Living Situation: Family Current Living Situation Comment: [facility] in [place] current occupational status: employed 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 She denied recent illness or fevers or sore throat. She denied chest pain or palpitations or shortness of breath. She denied nausea vomiting or diarrhea. She did report generalized abdominal pain which is been ongoing for the past 2 years. She denied changes in urinary frequency or stream. She denied swelling in hands or feet. Physical Exam Eyes: EOM intact bilaterally, + dilated pupils and + nystagmus Pupils equal round ENMT: external ear and nose normal, oropharynx normal Neck: trachea midline, no thyromegaly Respiratory: Patient with intermittent shallow and slow breathing. Lungs clear to auscultation in all duarte. Symmetrical chest wall movement. No crackles or wheezes. Cardiovascular: RRR, no murmur, no edema Heart Sounds: normal S1 and normal S2 Vessels: no JVD Extremities: normal capillary refill; no edema Gastrointestinal (Abdomen): Abdomen soft, nondistended, generalized tenderness with light palpation. Bowel sounds auscultated all 4 quadrants. Skin: no rashes, warm and dry Neurologic: Patient intermittently obtunded and hard to arouse but is alert and oriented when arousable. Pupils are dilated and nystagmus noted on exam but patient denies visual changes and EOMs intact. Cough gag corneal intact. Symmetrical strength 5/5 and ROM normal in all extremities. While patient experienced period of obtunded, is significantly hard to arouse and experiences shallow and slow breathing. No other neurological symptoms on exam. Psychiatric: Patient alert and oriented intermittently but experiences periods of obtunded Genitourinary: Indwelling Pean catheter Results & Data Results & Data ([facility]) Vital Signs (Past 12 Hours) Vital Signs Temp Pulse Resp BP BP Pulse Ox 10/13/20 18:58 36.7 C 83 20 156/95 H 97 10/13/20 14:55 36.6 C 57 L 16 104/64 94 Coding Level of Care Code Critical Care ea addt'l 30 min Diagnoses Admitted to intensive care unit Z78.9 Altered mental status R41.82 History of lupus Z87.39 Hypothyroid E03.9 HTN (hypertension) I10 Peptic ulcer disease K27.9 Abdominal pain R10.9 Abdominal location: unspecified location Fibromyalgia M79.7 Abdominal pain R10.9 Peptic ulcer disease K27.9 (1) Abdominal pain Abdominal location: unspecified location Qualified Code(s): R10.9 - Unspecified abdominal pain
--- NOTE | 2020-10-14 00:21 | Communication Note ---
Date of Service: October 14, 2020 Code francesco called on patient for being unresponsive after having received pain medication earlier in the evening (Roxicodone, gabapentin, baclofen). Intensive care HANNAH Soto already at bedside when I arrived, Dr. Silva also at bedside. Patient had already gotten 0.4 mg Narcan. Patient was persistently unresponsive and appeared severely respiratory depressed. 1 amp of bicarb and second dose of 0.4 mg of Narcan given IV. Respiratory support with Ambu bag started until set up for intubation was ready. Just prior to intubation patient started to breathe on her own and was suddenly arousable. Patient transferred to ICU with orders for a Narcan drip. Upon awakening patient admitted that she took 2 of her own baclofen from her back in addition to the medications nursing already given her. Orders given for security to confiscate patient's bag.
[2020-10-14] MEDS ORDERED: RAPID SEQUENCE INDUCTION BAG ONE (00:28)
[2020-10-14] MEDS ORDERED: PROPOFOL IV EMULSION 10 MG/ML 100 ML VIAL IV ONE (00:38)
[2020-10-14 00:40] LABS: Basophils # (auto) 0.03 K/uL (0-0.2); Basophils % (auto) 0.6 %; Eosinophils # (auto) 0.06 K/uL (0-0.5); Eosinophils % (auto) 1.3 %; Hematocrit (blood only) 37.6 % (37-47); Hemoglobin 13.3 g/dL (12.0-16.0); Immature Granulocytes # (auto) 0.01 K/uL (0.00-0.02); Immature Granulocytes % (auto) 0.2 %; Lymphocytes # (auto) 1.25 K/uL (1.2-3.4); Lymphocytes % (auto) 26.4 %; Mean Corpuscular Hemoglobin 32.8 pg (25-34); Mean Corpuscular Volume 92.6 fL (80-100); Mean Platelet Volume 9.8 fL (7.4-10.4); Monocytes # (auto) 0.36 K/uL (0.11-0.59); Monocytes % (auto) 7.6 %; Neutrophils # (auto) 3.03 K/uL (1.4-6.5); Neutrophils % (auto) 63.9 %; Platelet Count 186 K/uL (130-400); RDW Standard Deviation 47.3 fL (36.4-46.3); Red Blood Count 4.06 M/uL (4.2-5.4); White Blood Count 4.74 K/uL (4.8-10.8)
[2020-10-14 00:43] LABS: Mean Corpuscular Hgb Conc 35.4 g/dL (32-36)
[2020-10-14] MEDS ORDERED: STAT IV Infusion **Titration per Protocol STA ×2 (00:45→00:47)
[2020-10-14] MEDS ORDERED: PROPOFOL BOLUS FROM BAG IV PRN (00:45)
[2020-10-14 00:48] LABS: Base Excess VBG 0.4 mEq/L; Oxygen Saturation VBG 87.3 %; pH VBG 7.36 (7.36-7.41)
[2020-10-14] MEDS ORDERED: MIDAZOLAM HCL 1 MG/ML 2ML VIAL IV STA (00:50)
--- NOTE | 2020-10-14 00:50 | Procedure Note ---
Procedure Note Date of Service October 14, 2020 Note INTUBATION PROCEDURE NOTE: Provider: RENETTA Hassan Attending: Trey Boudreaux time-out was completed verifying correct patient, procedure, site, positioning. Patient was evaluated and required intubation for AMS/respiratory depression. Sedative agent used: Etomidate Paralysis agent used: Succinylcholine Emergent consent was implied given patients rapidly declining clinical status and need for airway protection. The patient was prepared in the appropriate fashion. Sedation was achieved utilizing etomidate and succinylcholine, per Dr. Mcdowell administration. The patient was easily ventilated using [id number] to achieve adequate oxygenation. A 7.0 Moroccan endotracheal tube was placed utilizing kaleidoscope to 22 cm at the lip. The stylette was removed and balloon was inflated with 10mL of air. Appropriate Colorimetric change was appreciated. Bilateral breath sounds were heard without air sounds in the abdomen. Dr. Mcdowell was present for the entire procedure. Post Intubation Chest X-ray confirms placement without pneumothorax. Patient tolerated the procedure well and there were no immediate complications. Coding
--- NOTE | 2020-10-14 00:52 | Procedure Note ---
Procedure Note Date of Service October 14, 2020 Overnight ED Physician Note Called to ICU Bed 107 for critically ill patient: Date: 10/14/20. Time: 12:30am Called to room 107 patient with deteriorating respiratory status Brief summary: 39 yr old female admitted earlier for intractable abdominal pain. Per nursing patient was self medicating with own Baclofen earlier in day. This evening worsening mental status requiring multiple rounds narcan to keep awake. Moved to ICU and continued Narcan bolus and gtt with worsening respiratory drive. Given concern for obtundation and requiring BPAP ICU requested patient intubated for safe management of airway. I was called from ED for management of this. Charles JACKSON at bedside who had requested my assistance. Patient is obtunded and minimally responsive to painful stimuli with poor respiratory drive though sating OK on 100% FiO2 via bipap. He was able to easily intubate patient on first attempt with GlideScope while I managed medications. Given Succinylcholine and Etomidate with good result. Sats, BP, HR stable throughout. Bilateral breath sounds post intubation with good sats. Care turned over to ICU team with plan for CXR and further work-up of ams changes. I have personally spent 35 minutes of critical care time in the direct managem ent of this patient. Acute respiratory failure requiring intubation and management. This was a life/limb threatening event. This 35 minutes is in excess of all separately billable procedures. Tony Vásquez MD Coding
[2020-10-14 00:56] LABS: Partial Thromboplastin Time 25.6 Seconds (21.0-31.0); Prothrombin Time 10.6 Seconds (9.0-12.0)
[2020-10-14 00:58] LABS: Albumin Level 3.5 gm/dl (3.4-5.0); BUN Creatinine Ratio 19.3 (10-20); Calcium 7.9 mg/dl (8.5-10.1); Est GFR (African American) 88.6; Est GFR (Non-African American) 76.4; Magnesium 1.9 mg/dl (1.8-2.4); Potassium 3.6 mmol/L (3.5-5.1)
[2020-10-14] MEDS ORDERED: DEXMEDETOMIDINE HCL 200 MCG in SODIUM CHLORIDE 0.9% 48 ML IV SCH (01:00)
[2020-10-14 01:05] LABS: Albumin Globulin Ratio 1.3 (0.9-2); Bilirubin,Total 0.7 mg/dl (0.2-1); Globulin 2.7 gm/dl (2.5-4.0); Phosphorus 3.6 mg/dl (2.5-4.9); Total Protein 6.2 gm/dl (6.4-8.2)
[2020-10-14] MEDS: NALOXONE HCL 5 MG in 0.9 % SODIUM CHLORIDE 100 ML IV SCH (01:11)
[2020-10-14] MEDS ORDERED: LORazepam 2 MG/4 ML VIAL IV PRN ×2 (01:11→04:21)
[2020-10-14] MEDS: propofoL 1,000 MG/100 ML VIAL IV SCH ×4 (01:12→15:17)
[2020-10-14 01:27] LABS: iSTAT Allen Test Pass; iSTAT Art Bld Gas pCO2 Correct 42 mmHg (35-46); iSTAT Art Bld Gas pH Corrected 7.387 (7.35-7.45); iSTAT Arterial Blood Gas HCO3 25 meg/L (19-24); iSTAT Arterial Blood Gas pCO2 42 mmHg (35-46); iSTAT Arterial Blood Gas pH 7.38 (7.35-7.45); iSTAT Arterial Blood Gas pO2 175 mmHg (80-95); iSTAT Arterial Blood Gas pO2 C 173; iSTAT Carbon Dioxide 26 mmol/L (24-31); iSTAT FiO2 40 %; iSTAT Hematocrit 38 % (37-47); iSTAT Hemoglobin 12.9 g/dl (12.0-16.0); iSTAT Potassium 3.6 mmol/L (3.3-5.0); iSTAT Site R Radial; iSTAT Sodium 140 mmol/L (135-144)
[2020-10-14] MEDS: SODIUM CHLORIDE 0.9% 1000ML 1,000 ML IV SCH ×2 (01:36→16:53)
[2020-10-14 01:40] LABS: Acetaminophen < 2 ug/ml (10-30); Salicylate < 1.7 mg/dl (2.8-20)
[2020-10-14 02:05] LABS: Amphetamines+Metham, Urine Neg (Neg); Barbiturates, Urine Neg (Neg); Benzodiazepine, Urine Neg (Neg); Cocaine, Urine Neg (Neg); MDMA (Ecstacy), Urine Neg (Neg); Methadone, Urine Neg (Neg); Opiate, Urine Pos (Neg); Phencyclidine, Urine Neg (Neg)
[2020-10-14] MEDS ORDERED: LABETALOL HCL IV 5 MG/ML 20ML IV STA (02:14)
[2020-10-14] MEDS ORDERED: ROCURONIUM BROMIDE 10 MG/ML 5 ML VIAL IV ONE (03:02)
[2020-10-14] MEDS ORDERED: MAGNESIUM SULFATE / D5W 1 GM/100 ML BAG IV ONE (03:19)
[2020-10-14] MEDS ORDERED: POTASSIUM CHLORIDE 20 MEQ/15 ML UDC PO STA (03:19)
[2020-10-14] MEDS: LEVOTHYROXINE SODIUM 25 MCG TABLET PO SCH (04:42)
[2020-10-14] MEDS: LINACLOTIDE 145 MCG CAPSULE PO SCH (04:42)
--- NOTE | 2020-10-14 06:56 | Hospitalist Progress Note ---
Date of Service October 14, 2020 Assessment & Plan (1) Abdominal pain: Danuta Rader is a 39-year-old female with a past medical history of chronic pain, lupus, tension headache, fibromyalgia, gastric ulcers, hypertension, hypothyroidism who presented with abdominal pain that has been progressively worsening over the past week. Currently intubated in the ICU. Abdominal Pain -Unclear etiology-suspect psychosomatic -HOLD Oxycodone 5mg, baclofen and gabapentin given overnight events with respiratory depression after her use of home baclofen from her purse in combination with these medications. - Avoid NSAIDs due to h/o gastric ulcers - Continue Linzess 145mcg PO daily--patient had been prescribed this but pending prior auth so had not started at home - Continue Famotidine & Pantoprazole - Miralax 17g PO daily - GI consulted- appreciate recs of enema Hypertension -currently on lower end, will hold AM meds - Refractory to home meds and multiple meds in ED on admission - continue to closely monitor History of Gastric Ulcers - As above continue PPI and Famotidine - Avoid NSAIDs Hypothyroidism - Continue home levothyroxine Fibromyalgia - Continue home gabapentin Depression - Continue home venlafaxine FENGI: Heart healthy DVT ppx: Lovenox 40mg SQ daily Dispo: ICU CODE STATUS: Full (2) HTN (hypertension): (3) Depression: (4) Hypothyroidism: (5) Fibromyalgia: (6) Peptic ulcer disease: Admission and Anticipated Discharge Date Admission Date: October 12, 2020 Supervising Physician Co-Signing Physician Notes Attending attestation Pt seen and examined in concert with Dr. Moreno. In agreement with the documented findings as noted in the resident documentation with any exceptions or additions as noted here. Patient intubated on ventilator with sedation wean in progress following addition of baclofen from her purse to her hospital regimen. Patient's roommate volunteers that she had done the same the prior evening when she was difficult to arouse in the AM, would frequently rapidly change her pain status from conversations with roommate and care team and that she was vaping an unknown substance in her hospital bed (and offering to share). NB: Patient attests that she does have gastroparesis though reports of documented emptying study does not support this. On examination, S1/S2 nl RRR no MCG. rhonchorous on vent. Abd ND BS+ve, no apparent TTP AHRF, intubated on ventilator, following oversedation with concern for exogenous substances - ICU consultation - sedation wean with pending extubation based on responsiveness. Chronic abdominal pain with recurrence - GI consultation - extensive prior evaluation without apparent etiology. Resume careful pain management and linzess, H2 and PPI therapy. Enema x 1 on 10.13, would resume per GI recommendations or with nl BM HTN - continue present regimen Else see resident documentation as noted. Subjective Pt was intubated overnight after ingesting additional pills of baclofen. Was a code purple. Review of Systems Review of Systems: Unobtainable due to endotracheal tube Physical Exam Physical Exam: General: laying in bed intubated Skin: No noted rashes or bruises HEENT: NC/AT, intubated Chest: Nontender to palpation. CV: RRR, Normal s1, s2. Resp: Breath sounds clear bilaterally Abdomen: Soft, nondistended. Extremities: No edema in lower extremities bilaterally. Results & Data Results & Data ([facility]) Vital Signs (Past 12 Hours) Vital Signs Temp Pulse Pulse Resp BP BP Pulse Ox 10/14/20 06:00 36.5 C 64 111/65 98 10/14/20 05:30 36.1 C L 62 120/71 98 10/14/20 05:00 35.9 C L 61 129/76 99 10/14/20 04:30 35.8 C L 60 132/79 100 10/14/20 04:06 69 16 97 10/14/20 03:30 85 16 99 10/14/20 02:57 61 149/86 H 98 10/14/20 02:42 61 158/91 H 98 10/14/20 02:27 63 149/88 H 97 10/14/20 02:12 69 212/116 H 98 10/14/20 01:57 67 168/99 H 98 10/14/20 01:42 68 163/96 H 98 10/14/20 01:27 172/100 H 99 10/14/20 01:12 75 195/109 H 98 10/14/20 00:57 79 160/88 H 98 10/14/20 00:51 92 H 221/119 H 97 10/14/20 00:46 96 H 224/147 H 97 10/14/20 00:42 82 18 98 10/14/20 00:40 92 H 262/154 H 99 10/14/20 00:33 94 H 20 99 10/14/20 00:16 73 21 161/101 H 98 10/13/20 23:34 94 H 23 170/117 H 98 10/13/20 23:20 58 L 10 L 110/70 94 10/13/20 23:16 59 L 8 L 96/56 L 94 10/13/20 23:13 56 L 6 L 86/55 L 93 10/13/20 23:00 36.4 C L 54 L 10 L 100/58 L 95 10/13/20 18:58 36.7 C 83 20 156/95 H 97 Resident Activity Tracking Resident Involvement: Resident Care Provided Care Provided: Adult Hospital Medicine
--- NOTE | 2020-10-14 07:20 | Magnetic Resonance Report ---
MRI OF THE BRAIN WITHOUT CONTRAST CLINICAL HISTORY: Altered mental status. COMPARISON STUDY: MRI of the brain July 20, 2014. Head CT October 14, 2020. TECHNIQUE: Utilizing a 1.5 Felicia magnet and dedicated coil, multiplanar, multiecho imaging of the bra in was performed without IV contrast. FINDINGS: There are no foci of restricted diffusion to suggest acute infarct. No acute intracranial h emorrhage, midline shift or mass effect is present. Brain volume is normal. Ventricular system is nor mal. Basal cisterns are patent. There are no extra-axial collections. No intracranial masses are iden tified on this unenhanced exam. No parenchymal signal abnormalities identified. Secretions within the nasopharynx are related to intubation. Endotracheal and nasogastric tubes are partially imaged. Ther e is trace fluid within the bilateral maxillary sinuses as well as the ethmoid sinuses. IMPRESSION: Unremarkable unenhanced MRI of the brain. No acute intracranial findings. ACT 112: Negative or not required by law. Electronically signed by: Olegario Anderson M.D. 10/14/2020 7:19 AM
[2020-10-14] MEDS: ENOXAPARIN INJ 40 MG/0.4 ML SYR SQ SCH (07:31)
[2020-10-14] MEDS: POLYETHYLENE (MIRALAX) 17 GM PACK PO SCH ×2 (07:31→07:32)
[2020-10-14] MEDS: FAMOTIDINE 20 MG TAB PO SCH ×2 (07:31→20:04)
[2020-10-14] MEDS: METOPROLOL TARTRATE 25 MG TAB PO SCH (07:31)
[2020-10-14] MEDS: DOCUSATE SODIUM/SENNA 50/8.6MG TAB PO SCH (07:31)
--- NOTE | 2020-10-14 07:31 | XRay Report ---
XR chest 1V portable CLINICAL HISTORY: intubation COMPARISON STUDY: Chest radiograph August 29, 2020. FINDINGS: Tip of endotracheal tube is 4.5 cm above the poncho. Nasogastric tube is coiled within the stomach. The tip projects over the gastric cardia. A left subclavian [id number] is in place. There are cholecystectomy clips. Lung volumes are diminished. There are bibasilar opacities. No pneumothor ax is present. There is no evidence for pulmonary edema. IMPRESSION: 1. Satisfactory positioning of lines and tubes. 2. Low lung volumes with bibasilar opacities which may reflect consolidation or atelectasis. ACT 112: Negative or not required by law. Electronically signed by: Olegario Anderson M.D. 10/14/2020 7:30 AM
[2020-10-14] MEDS: LABETALOL HCL IV 5 MG/ML 20ML IV PRN ×2 (07:44→22:20)
--- NOTE | 2020-10-14 07:48 | CT Scan Report ---
CT OF THE HEAD WITHOUT CONTRAST CLINICAL HISTORY: Altered mental status. COMPARISON STUDY: Head CT October 12, 2020. CT DOSE: 614.27 mGy.cm TECHNIQUE: Helical axial images of the head were obtained without IV contrast. Automated exposure con trol was utilized for the study. A dose lowering technique was utilized adhering to the principles o f ALARA. FINDINGS: No acute intracranial hemorrhage, midline shift or mass effect is present. The ventricular system is unremarkable. The basal cisterns are patent. No extra-axial collections are present. There are no findings to suggest acute dural sinus thrombosis or acute territorial infarct. No significant calvarial abnormalities are present. Visualized portions of the sinuses and mastoid air cells are kasey ar. 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 IMPRESSION: No acute intracranial findings. ACT 112: Negative or not required by law. Electronically signed by: Olegario Anderson M.D. 10/14/2020 7:46 AM
[2020-10-14] MEDS: PANTOprazole 40 MG TAB PO SCH ×2 (08:02→20:04)
[2020-10-14] MEDS ORDERED: MIDAZOLAM HCL 5 MG/ML VIAL IV ONE (08:17)
[2020-10-14] MEDS ORDERED: SUCCINYLCHOLINE CHLORIDE 20 MG/ML 10 ML VIAL IV ONE (08:17)
[2020-10-14] MEDS ORDERED: ETOMIDATE 2 MG/ML 20 ML VIAL IV ONE (08:17)
[2020-10-14] MEDS: amLODIPine BESYLATE 5 MG TAB PO SCH (09:34)
--- NOTE | 2020-10-14 10:43 | Critical Care Progress Note ---
Date of Service October 14, 2020 Assessment & Plan (1) Admitted to intensive care unit: Reason Critically Ill: 39-year-old female initially admitted for abdominal pain with unknown etiology, became intermittently unresponsive and code purple called. Given Narcan and transferred to ICU where she eventually required intubation and now mechanically ventilated. Neuro - AMSunsure of etiology at this time. Patient did admit to taking additional baclofen from purse earlier in the afternoon, cannot rule out potential overdose at this time. -Now holding Roxicodone, gabapentin, baclofen -1.6 mg Narcan administered and was started on Narcan drip without significant benefit. Intubated midnight 10/14/2020 -Propofol and prn Ativan for sedation while mechanically ventilated -CT head negative, MRI brain negative -Repeat UDS positive for opioids (positive marijuana on admission), ammonia within normal limits, euglycemic, BUN within normal limits. Salicylate and acetaminophen levels undetectable, TSH within normal limit -Follow-up EEG Cardiac - NSR on monitor. Hemodynamically stable without use of vasopressors EKG 10/12 NSR with normal intervals, normal QRS complexes, no ST elevation or depression, and no arrhythmias. -Troponin negative on admission Continuous monitoring on telemetry HTNcontinue home meds -As needed labetalol added for refractory hypertension Respiratory - Mechanically ventilatedintubated for airway protection due to neurological status and abnormal respiration/RR. No hypoxia or respiratory distress -Vent settings: 16/450/5/30 percent -Continuous monitor on pulse ox GI - Abdominal pain (chronic)unknown etiology. Evaluated and management per GI recommendations. -Mesenteric ultrasound and KUB unremarkable -Constipation without BM for 3 days, was undergoing Fleet enema. Will start bowel regimen while intubated -Plan to follow-up as outpatient at [facility] History gastric ulcerscontinue PPI and famotidine RENAL/LYTES - Creatinine and electrolytes within normal limits, monitor routine BMPs - Foleystrict I's and O's ENDO - No history of diabetes, ICU hyperglycemic protocol Hypothyroidcontinue Synthroid HEME - H&H within normal limits, monitor routine CBC ID - No indication for infectious process at this time, monitor fever curve --Prophylaxis VTE: Lovenox GI: Protonix Lines: Peripheral Diet: N.p.o. Plan: In/out: -433, urine output 1600 AB.38/42/175 on 40% FiO2 with PEEP 5 Patient was RASS -2 at the time of examination Her pupils were dilated but her responsive to light. She was on propofol 35 the time of examination Opioid versus reviewing the depression along with seizures/pseudoseizures. Ammonia,TSH, sodium, glucose, calcium all within normal limit. We will discontinue the propofol and see if the patient starts to respond. Patient has no issues when it comes to her pulmonary site. The reason of intubation was patient's apneic episodes and somnolence. CT head and MRI of the brain was negative. We will get an EEG to make sure we are not missing underlying seizures. Blood pressure medication. Resume amlodipine. Once the patient is alert and following commands will try extubation. I have personally spent 33 additional minutes of critical care time in the direct management of this patient. This is a life/limb threatening event. This includes time spent evaluating patient, direct bedside care, chart review, placing orders, interpretation of diagnostic studies, discussion with consultants, patient, and family members, as well as other required patient management activities. This time is exclusive of all separately billable procedures, and teaching time and separate from and in addition to any other critical care service time. Please note the above document was generated using voice recognition software. It may contain grammatical, syntax or spelling errors. (2) Altered mental status: (3) HTN (hypertension): Admission and Anticipated Discharge Date Admission Date: October 12, 2020 Subjective Patient seen and examined at bedside. No acute distress. Patient was on propofol 35 the time of examination. She was breathing with the vent. Pupils were dilated but reacting to light. RASS -2 has been afebrile. Review of Systems Review of Systems: Unobtainable due to endotracheal tube Physical Exam Physical Exam: Constitutional: No acute distress HEENT: EOMI, PERRLA, pupils are dilated but respond to light, positive ETT Respiratory system: Good air entry bilaterally, no wheeze, no rhonchi, no crackles CVS: S1-S2 positive, no murmurs or gallops Abdomen: Soft, nontender, nondistended, positive bowel sounds x4 Extremities: +2 pulses bilaterally radialis/ dorsalis pedis, no cyanosis, no edema Neuro: RASS -2 Psych: Unable to assess G/U: Positive Pena Skin: no rashes, warm and dry Lymphatic: no cervical or axillary lymphadenopathy Results & Data Results & Data ([facility]) Vital Signs (Past 12 Hours) Vital Signs Temp Pulse Pulse Resp BP BP Pulse Ox 10/14/20 08:13 37.3 C 66 163/91 H 98 10/14/20 08:11 37.3 C 67 166/96 H 98 10/14/20 08:10 14 10/14/20 08:00 37.3 C 68 98 10/14/20 07:41 37.3 C 74 180/97 H 98 10/14/20 07:30 37.3 C 73 98 10/14/20 07:05 37.2 C 67 118/68 98 10/14/20 07:00 37.1 C 66 98 10/14/20 06:58 66 16 98 10/14/20 06:30 36.8 C 64 98 10/14/20 06:00 36.5 C 64 111/65 98 10/14/20 05:30 36.1 C L 62 120/71 98 10/14/20 05:00 35.9 C L 61 129/76 99 10/14/20 04:30 35.8 C L 60 132/79 100 10/14/20 04:06 69 16 97 10/14/20 03:30 85 16 99 10/14/20 02:57 61 149/86 H 98 10/14/20 02:42 61 158/91 H 98 10/14/20 02:27 63 149/88 H 97 10/14/20 02:12 69 212/116 H 98 10/14/20 01:57 67 168/99 H 98 10/14/20 01:42 68 163/96 H 98 10/14/20 01:27 172/100 H 99 10/14/20 01:12 75 195/109 H 98 10/14/20 00:57 79 160/88 H 98 10/14/20 00:51 92 H 221/119 H 97 10/14/20 00:46 96 H 224/147 H 97 10/14/20 00:42 82 18 98 10/14/20 00:40 92 H 262/154 H 99 10/14/20 00:33 94 H 20 99 10/14/20 00:16 73 21 161/101 H 98 10/13/20 23:34 94 H 23 170/117 H 98 10/13/20 23:20 58 L 10 L 110/70 94 10/13/20 23:16 59 L 8 L 96/56 L 94 10/13/20 23:13 56 L 6 L 86/55 L 93 10/13/20 23:00 36.4 C L 54 L 10 L 100/58 L 95 Pulse Ox 10/14/20 08:13 10/14/20 08:11 10/14/20 08:10 10/14/20 08:00 98 10/14/20 07:41 10/14/20 07:30 10/14/20 07:05 10/14/20 07:00 10/14/20 06:58 10/14/20 06:30 10/14/20 06:00 10/14/20 05:30 10/14/20 05:00 10/14/20 04:30 10/14/20 04:06 10/14/20 03:30 10/14/20 02:57 10/14/20 02:42 10/14/20 02:27 10/14/20 02:12 10/14/20 01:57 10/14/20 01:42 10/14/20 01:27 10/14/20 01:12 10/14/20 00:57 10/14/20 00:51 10/14/20 00:46 10/14/20 00:42 10/14/20 00:40 10/14/20 00:33 10/14/20 00:16 10/13/20 23:34 10/13/20 23:20 10/13/20 23:16 10/13/20 23:13 10/13/20 23:00 10/14/20 00:26 10/14/20 00:26 Coding Level of Care Code Critical Care ea addt'l 30 min Diagnoses Admitted to intensive care unit Z78.9 Altered mental status R41.82 HTN (hypertension) I10 Time Spent (min) 33
--- NOTE | 2020-10-14 11:01 | Electroencephalogram ---
EEG Procedure Note Date of Service October 14, 2020 Start / End Times Start Time: 1039 End Time: [address] Chen History 39 year old with altered mental status Home Medication List Medication Instructions Recorded Confirmed Type levothyroxine 25 mcg PO QAM 07/10/19 10/12/20 History venlafaxine 300 mg PO QAM 07/10/19 10/12/20 History famotidine 20 mg PO BID 07/18/20 10/12/20 History pantoprazole 40 mg PO BID 30 Days #60 tab 08/15/20 10/12/20 Rx baclofen 20 mg PO TID PRN #20 tab 08/30/20 10/12/20 Rx gabapentin 900 mg PO TID #30 cap 08/30/20 10/12/20 Rx linaclotide [Linzess] 145 mcg PO DAILYBB #30 cap 08/30/20 10/12/20 Rx amlodipine 10 mg PO QAM 10/12/20 10/12/20 History metoprolol tartrate 25 mg PO QAM 10/12/20 10/12/20 History Inpatient Medication List Amlodipine Besylate (Amlodipine Besylate 5 Mg Tab) 10 mg PO QAM THAO Stop: 11/13/20 09:29 Last Admin: 10/14/20 09:34 Dose: 10 mg Documented by: [id number] Baclofen (Baclofen 20 Mg Tab) 20 mg PO TID PRN PRN Reason: abdominal pian Stop: 11/11/20 21:27 Last Admin: 10/13/20 20:36 Dose: 20 mg Documented by: [id number] Admin: 10/12/20 22:20 Dose: 20 mg Documented by: [id number] Enoxaparin Sodium (Enoxaparin Inj 40 Mg/0.4 Ml Syr) 40 mg SQ QAM THAO Stop: 11/12/20 08:59 Last Admin: 10/14/20 07:31 Dose: 40 mg Documented by: [id number] Admin: 10/13/20 08:01 Dose: 40 mg Documented by: [id number] Famotidine (Famotidine 20 Mg Tab) 20 mg PO BID THAO Stop: 11/11/20 21:27 Last Admin: 10/14/20 07:31 Dose: 20 mg Documented by: [id number] Admin: 10/13/20 20:18 Dose: 20 mg Documented by: [id number] Admin: 10/13/20 07:59 Dose: 20 mg Documented by: [id number] Admin: 10/12/20 22:19 Dose: 20 mg Documented by: [id number] Gabapentin (Gabapentin 300 Mg Cap) 900 mg PO TID THAO Stop: 11/11/20 21:27 Last Admin: 10/13/20 20:17 Dose: 900 mg Documented by: [id number] Admin: 10/13/20 14:58 Dose: 900 mg Documented by: [id number] Admin: 10/13/20 07:58 Dose: 900 mg Documented by: [id number] Admin: 10/12/20 22:19 Dose: 900 mg Documented by: [id number] Propofol (Diprivan) 1,000 mg in 100 mls @ 0 mls/hr IV .Q0M THAO; Protocol Stop: 10/17/20 00:44 Last Titration: 10/14/20 08:01 Dose: 0 mcg/kg/min, 0 mls/hr Documented by: [id number] Titration: 10/14/20 07:15 Dose: 45 mcg/kg/min, 27.5 mls/hr Documented by: [id number] Admin: 10/14/20 05:59 Dose: 50 mcg/kg/min, 30.5 mls/hr Documented by: [id number] Cosigned by: [id number] Titration: 10/14/20 05:59 Dose: 50 mcg/kg/min, 30.5 mls/hr Documented by: [id number] Cosigned by: [id number] Admin: 10/14/20 03:03 Dose: 50 mcg/kg/min, 30.5 mls/hr Documented by: [id number] Cosigned by: [id number] Titration: 10/14/20 03:03 Dose: 50 mcg/kg/min, 30.5 mls/hr Documented by: [id number] Cosigned by: [id number] Titration: 10/14/20 01:15 Dose: 50 mcg/kg/min, 30.5 mls/hr Documented by: [id number] Admin: 10/14/20 01:12 Dose: 20 mcg/kg/min, 12.2 mls/hr Documented by: [id number] Cosigned by: [id number] Sodium Chloride (Nss 1000ml) 1,000 mls @ 50 mls/hr IV .Q20H THAO Stop: 11/13/20 01:29 Last Infusion: 10/14/20 07:48 Dose: 50 mls/hr Documented by: [id number] Admin: 10/14/20 01:36 Dose: 80 mls/hr Documented by: [id number] Lorazepam (Ativan) 2 mg in 4 mls @ 4 mls/min IV Q2H PRN PRN Reason: Agitation Stop: 11/13/20 01:10 Last Admin: 10/14/20 03:30 Dose: 4 mls/min Documented by: [id number] Labetalol HCl (Labetalol Hcl Iv 5 Mg/Ml 20ml) 10 mg IV Q2H PRN PRN Reason: Hypertension Stop: 11/13/20 02:31 Last Admin: 10/14/20 07:44 Dose: 10 mg Documented by: [id number] Cosigned by: [id number] Levothyroxine Sodium (Levothyroxine Sodium 25 Mcg Tablet) [facility] Stop: 11/12/20 06:29 Last Admin: 10/14/20 04:42 Dose: 25 mcg Documented by: [id number] Admin: 10/13/20 05:12 Dose: 25 mcg Documented by: [id number] Linaclotide (Linaclotide 145 Mcg Capsule) [facility] Stop: 11/12/20 06:29 Last Admin: 10/14/20 04:42 Dose: 145 mcg Documented by: [id number] Admin: 10/13/20 05:12 Dose: 145 mcg Documented by: [id number] Metoprolol Tartrate (Metoprolol Tartrate 25 Mg Tab) 25 mg PO [facility] Stop: 11/12/20 08:59 Last Admin: 10/14/20 07:31 Dose: 25 mg Documented by: [id number] Admin: 10/13/20 08:01 Dose: 25 mg Documented by: [id number] Ondansetron HCl (Ondansetron Inj 2 Mg/Ml 2 Ml Vial) 4 mg IV Q6H PRN PRN Reason: Nausea Stop: 11/11/20 21:27 Last Admin: 10/13/20 11:20 Dose: 4 mg Documented by: [id number] Oxycodone HCl (Oxycodone Hcl Ir 5 Mg Tab (Immediate Release)) 5 mg PO Q4H PRN PRN Reason: Pain Stop: 10/27/20 13:47 Last Admin: 10/13/20 20:18 Dose: 5 mg Documented by: [id number] Pantoprazole Sodium (Pantoprazole 40 Mg Tab) 40 mg PO BID [facility] Stop: 11/11/20 21:27 Last Admin: 10/14/20 08:02 Dose: Not Given Documented by: [id number] Admin: 10/13/20 20:17 Dose: 40 mg Documented by: [id number] Admin: 10/13/20 08:00 Dose: 40 mg Documented by: [id number] Admin: 10/12/20 22:19 Dose: 40 mg Documented by: [id number] Polyethylene Glycol (Polyethylene (Miralax) 17 Gm Pack) 17 gm PO DAILY [facility] Stop: 11/12/20 08:59 Last Admin: 10/14/20 07:31 Dose: 17 gm Documented by: [id number] Admin: 10/13/20 08:02 Dose: 17 gm Documented by: [id number] Polyethylene Glycol (Polyethylene (Miralax) 17 Gm Pack) 17 gm PO DAILY [facility] Stop: 11/13/20 08:59 Last Admin: 10/14/20 07:32 Dose: 17 gm Documented by: [id number] Propofol (Propofol Bolus From Bag) 20 mg IV Q5M PRN PRN Reason: Sedation Stop: 10/17/20 00:44 Last Admin: 10/14/20 01:12 Dose: 20 mg Documented by: [id number] Cosigned by: [id number] Senna/Docusate Sodium (Docusate Sodium/Senna 50/8.6mg Tab) 1 tab PO QAM [facility] Stop: 11/13/20 08:59 Last Admin: 10/14/20 07:31 Dose: 1 tab Documented by: [id number] Sodium Biphosphate/Sodium Phosphate (Sod Phosphate/Sod Biphosphate Enema 132 Ml Btl) 132 ml RI DAILY PRN PRN Reason: Constipation Stop: 11/12/20 10:55 Last Admin: 10/13/20 12:20 Dose: 132 ml Documented by: [id number] Venlafaxine HCl (Venlafaxine Hcl Xr 150 Mg Capxr) 300 mg PO QAM [facility] Stop: 11/12/20 08:59 Last Admin: 10/13/20 08:00 Dose: 300 mg Documented by: [id number] Discontinued Medications Amlodipine Besylate (Amlodipine Besylate 5 Mg Tab) 10 mg PO QAM [facility] Stop: 11/12/20 08:59 Last Admin: 10/13/20 07:59 Dose: 10 mg Documented by: [id number] Diphenhydramine HCl (Diphenhydramine 50 Mg/Ml Vial) 25 mg IV NOW STA Stop: 10/12/20 12:02 Last Admin: 10/12/20 12:59 Dose: 25 mg Documented by: [id number] Heparin Sodium (Porcine) (Heparin 100 Unit/Ml 5ml Flush) Confirm Administered Dose 5 ml .ROUTE .STK-MED ONE Stop: 10/12/20 15:20 Last Admin: 10/12/20 19:52 Dose: Not Given Documented by: [id number] Hydralazine HCl (Hydralazine Hcl 20 Mg/Ml Vial) 10 mg IV NOW STA Stop: 10/12/20 17:42 Last Admin: 10/12/20 17:59 Dose: 10 mg Documented by: [id number] Hydromorphone HCl (Hydromorphone Inj 0.5 Mg/0.5 Ml Syr) 0.5 mg IV NOW STA Stop: 10/12/20 15:34 Last Admin: 10/12/20 15:57 Dose: 0.5 mg Documented by: [id number] Hydromorphone HCl (Hydromorphone Inj 0.5 Mg/0.5 Ml Syr) 0.5 mg IV NOW STA Stop: 10/12/20 20:29 Last Admin: 10/12/20 21:31 Dose: Not Given Documented by: [id number] Hydromorphone HCl (Hydromorphone Inj 0.5 Mg/0.5 Ml Syr) Confirm Administered Dose 0.5 mg .ROUTE .STK-MED ONE Stop: 10/12/20 20:46 Last Admin: 10/12/20 20:47 Dose: 0.5 mg Documented by: [id number] Hydromorphone HCl (Hydromorphone Inj 1 Mg/Ml Syringe) 1 mg IV NOW STA Stop: 10/12/20 22:41 Last Admin: 10/12/20 22:56 Dose: 1 mg Documented by: [id number] Sodium Chloride (Nss 1000ml) 1,000 mls @ 999 mls/hr IV .Q1H1M ONE Stop: 10/12/20 12:59 Last Infusion: 10/12/20 14:10 Dose: 0 mls/hr Documented by: [id number] Admin: 10/12/20 12:59 Dose: 999 mls/hr Documented by: [id number] Acetaminophen (Ofirmev) 1,000 mg in 100 mls @ 400 mls/hr IV NOW STA Stop: 10/12/20 12:13 Last Infusion: 10/12/20 13:25 Dose: 0 mls/hr Documented by: [id number] Admin: 10/12/20 12:59 Dose: 400 mls/hr Documented by: [id number] Naloxone HCl 5 mg/ Sodium (Chloride) 112.5 mls @ 22.5 mls/hr IV .Q5H THAO; Protocol Stop: 11/12/20 23:29 Last Admin: 10/14/20 01:11 Dose: Not Given Documented by: [id number] Titration: 10/14/20 00:30 Dose: 0 mg/hr, 0 mls/hr Documented by: [id number] Titration: 10/14/20 00:15 Dose: 1 mg/hr, 22.5 mls/hr Documented by: [id number] Titration: 10/13/20 23:59 Dose: 0.6 mg/hr, 13.5 mls/hr Documented by: [id number] Admin: 10/13/20 23:48 Dose: 1 mg/hr, 22.5 mls/hr Documented by: [id number] Cosigned by: [id number] Dexmedetomidine HCl 200 mcg/ (Sodium Chloride) 50 mls @ 5.085 mls/hr IV .Q9H50M [facility]AO; Protocol Stop: 10/18/20 00:59 Last Admin: 10/14/20 01:43 Dose: Not Given Documented by: [id number] Lorazepam (Ativan) 2 mg in 4 mls @ 4 mls/min IV Q4H PRN PRN Reason: Agitation Stop: 11/13/20 01:10 Last Admin: 10/14/20 01:36 Dose: 4 mls/min Documented by: [id number] Magnesium Sulfate/Dextrose (Magnesium Sulfate / D5w) 1 gm in 100 mls @ 50 mls/hr IV ONE ONE Stop: 10/14/20 05:18 Last Infusion: 10/14/20 06:45 Dose: 0 mls/hr Documented by: [id number] Admin: 10/14/20 04:35 Dose: 50 mls/hr Documented by: [id number] Ketorolac Tromethamine (Ketorolac 30 Mg/Ml Vial) 30 mg IV NOW ONE Stop: 10/12/20 14:29 Last Admin: 10/12/20 14:39 Dose: 30 mg Documented by: [id number] Labetalol HCl (Labetalol Hcl Iv 5 Mg/Ml 20ml) 10 mg IV NOW STA Stop: 10/14/20 02:15 Last Admin: 10/14/20 02:20 Dose: 10 mg Documented by: [id number] Cosigned by: [id number] Lisinopril (Lisinopril 10 Mg Tab) 10 mg PO NOW ONE Stop: 10/12/20 20:16 Last Admin: 10/12/20 20:49 Dose: Not Given Documented by: [id number] Lisinopril (Lisinopril 5 Mg Tab) Confirm Administered Dose 10 mg PO .STK-MED ONE Stop: 10/12/20 19:58 Last Admin: 10/12/20 20:48 Dose: 10 mg Documented by: [id number] Metoclopramide HCl (Metoclopramide Hcl Inj 5 Mg/Ml 2 Ml Vial) 10 mg IV NOW STA Stop: 10/12/20 12:02 Last Admin: 10/12/20 12:59 Dose: 10 mg Documented by: [id number] Metoprolol Tartrate (Metoprolol Tartrate 1 Mg/Ml Vial) 5 mg IV NOW STA Stop: 10/12/20 17:12 Last Admin: 10/12/20 17:20 Dose: 5 mg Documented by: [id number] Midazolam HCl (Midazolam Hcl 1 Mg/Ml 2ml Vial) 2 mg IV NOW STA Stop: 10/14/20 00:51 Last Admin: 10/14/20 01:15 Dose: Not Given Documented by: [id number] Miscellaneous (Rapid Sequence Induction Bag) Confirm Administered Dose 1 ea .ROUTE .STK-MED ONE Stop: 10/13/20 23:24 Last Admin: 10/13/20 23:47 Dose: Not Given Documented by: [id number] Miscellaneous (Rapid Sequence Induction Bag) Confirm Administered Dose 1 ea . ROUTE .STK-MED ONE Stop: 10/14/20 00:29 Last Admin: 10/14/20 00:35 Dose: 1 ea Documented by: [id number] Morphine Sulfate (Morphine Sulfate 2 Mg/Ml Carp) 2 mg IV NOW STA Stop: 10/12/20 21:39 Last Admin: 10/12/20 21:54 Dose: 2 mg Documented by: [id number] Morphine Sulfate (Morphine Sulfate 2 Mg/Ml Carp) 2 mg IV Q1H PRN PRN Reason: Pain Stop: 10/26/20 21:40 Last Admin: 10/13/20 00:42 Dose: 2 mg Documented by: [id number] Morphine Sulfate (Morphine Sulfate 4 Mg/Ml 1 Ml Carp\Vial) 4 mg IV Q1H PRN PRN Reason: Pain Stop: 10/26/20 21:40 Last Admin: 10/13/20 11:07 Dose: 4 mg Documented by: [id number] Admin: 10/13/20 07:53 Dose: 4 mg Documented by: [id number] Morphine Sulfate (Morphine Sulfate 4 Mg/Ml 1 Ml Carp\Vial) Confirm Administered Dose 4 mg .ROUTE .STK-MED ONE Stop: 10/13/20 04:13 Last Admin: 10/13/20 04:14 Dose: 4 mg Documented by: [id number] Naloxone HCl (Naloxone Hcl 0.4 Mg/1 Ml Vial/Carp) Confirm Administered Dose 0.4 mg .ROUTE .STK-MED ONE Stop: 10/13/20 23:19 Last Admin: 10/13/20 23:46 Dose: Not Given Documented by: [id number] Naloxone HCl (Naloxone Hcl 0.4 Mg/1 Ml Vial/Carp) 0.4 mg IV ONCE ONE Stop: 10/13/20 23:21 Last Admin: 10/13/20 23:21 Dose: 0.4 mg Documented by: [id number] Naloxone HCl (Naloxone Hcl 0.4 Mg/1 Ml Vial/Carp) Confirm Administered Dose 0.4 mg .ROUTE .STK-MED ONE Stop: 10/13/20 23:25 Last Admin: 10/13/20 23:47 Dose: Not Given Documented by: [id number] Naloxone HCl (Naloxone Hcl 0.4 Mg/1 Ml Vial/Carp) 0.4 mg IV NOW STA Stop: 10/13/20 23:57 Last Admin: 10/13/20 23:59 Dose: 0.4 mg Documented by: [id number] Oxycodone HCl (Oxycodone Hcl Soln 5 Mg/5 Ml Udc) 5 mg PO Q4H PRN PRN Reason: Pain Stop: 10/26/20 21:27 Last Admin: 10/12/20 23:46 Dose: 5 mg Documented by: [id number] Potassium Chloride (Potassium Chloride 20 Meq/15 Ml Udc) 40 meq PO NOW STA Stop: 10/14/20 03:20 Last Admin: 10/14/20 04:41 Dose: 40 meq Documented by: [id number] Propofol (Propofol Iv Emulsion 10 Mg/Ml 100 Ml Vial) Confirm Administered Dose 1,000 mg IV .[facility] ONE Stop: 10/14/20 00:39 Last Admin: 10/14/20 01:13 Dose: Not Given Documented by: [id number] Rocuronium [place] (Rocuronium [place] 10 Mg/Ml 5 Ml Vial) 50 mg IV ONCE ONE Stop: 10/14/20 03:03 Last Admin: 10/14/20 03:30 Dose: 50 mg Documented by: [id number] Cosigned by: [id number] Description This is a 21 electrode EEG with a single channel dedicated to limited EKG. The electrodes were placed in accordance with the International 10-20 system. Interpretation The predominant background activity consists of an irregular 5 Hz activity, of up to 60 mV in amplitude,seen symmetrically distributed over the posterior head regions, spreading anteriorly diffusely bilaterally. This activity has little attenuation with alerting procedures. Photic stimulation was performed and elicited no change in the background activity and no abnormal responses were seen. Hyperventilation was not performed. A minimal amount of muscle and movement artifact activity contaminated the recording and did not hinder interpretation to any significant degree. Throughout the recording, no focal abnormalities or potentially epileptogenic discharges were seen. In summary, this EEG shows mild to moderate slowing in general. No focal abnormalities or potentially epileptogenic discharges were seen. Clinical Correlation The absence of potentially epileptogenic activity in this recording points away from subclinical seizure. The generalized slowing is consistent with a mild to moderate encephalopathy of uncertain/nonspecific etiology. [facility] EEG Procedure Codes Indication for Procedure (1) Altered mental status: Neurology Neurology: 91242 EEG include record awake & drowsy
--- NOTE | 2020-10-14 12:35 | Progress Notes ---
DATE: 10/14/2020 Yesterday, the patient became somnolent and poorly responsive with decreased respirations and required transfer to the intensive care unit where she was placed on a ventilator for respiratory support and protection. The patient's drug screen on admission showed marijuana and during the hospitalization, she has been receiving opioids, but she apparently took some baclofen from her purse, which probably is the offending agent that tipped her over into this state. Metabolically, she is normal and CT and MRIs of her head and EEG today just showed some generalized slowing probably from encephalopathy of unknown cause, but no signs of any overt seizure activity. The patient did receive a Fleet Enema yesterday, but I cannot find any reports of any results and the patient is unable to speak being intubated at this time, so we will continue to follow her abdominal pain, which currently is taking a back seat medically and she will continue to receive Fleet Enema as long as she does not have a bowel movement. If any further GI evaluation, I would direct to where she has an appointment on 10/[address] Doty.
[2020-10-14] MEDS: KETOROLAC TROMETHAMINE 15 MG/ML VIAL IV PRN (21:46)
--- NOTE | 2020-10-14 23:33 | Billing Data ---
Date of Service October 12, 2020 Coding Level of Care Code 56527 Initial Inpt Care Lvl 3
[2020-10-14 23:41] LABS: Marijuana Quant, GCMS Urine 33 ng/mL (<5)
[2020-10-15 05:18] LABS: Basophils # (auto) 0.02 K/uL (0-0.2); Basophils % (auto) 0.4 %; Eosinophils # (auto) 0.08 K/uL (0-0.5); Eosinophils % (auto) 1.6 %; Hematocrit (blood only) 36.6 % (37-47); Hemoglobin 12.4 g/dL (12.0-16.0); Immature Granulocytes # (auto) 0.02 K/uL (0.00-0.02); Immature Granulocytes % (auto) 0.4 %; Lymphocytes # (auto) 1.68 K/uL (1.2-3.4); Lymphocytes % (auto) 33.3 %; Mean Corpuscular Hemoglobin 31.6 pg (25-34); Mean Corpuscular Hgb Conc 33.9 g/dL (32-36); Mean Corpuscular Volume 93.4 fL (80-100); Mean Platelet Volume 10.1 fL (7.4-10.4); Monocytes # (auto) 0.39 K/uL (0.11-0.59); Monocytes % (auto) 7.7 %; Neutrophils # (auto) 2.85 K/uL (1.4-6.5); Neutrophils % (auto) 56.6 %; Platelet Count 164 K/uL (130-400); RDW Coefficient of Variation 13.6 % (11.5-14.5); RDW Standard Deviation 46.3 fL (36.4-46.3); Red Blood Count 3.92 M/uL (4.2-5.4); White Blood Count 5.04 K/uL (4.8-10.8)
[2020-10-15] MEDS: KETOROLAC TROMETHAMINE 15 MG/ML VIAL IV PRN (05:30)
[2020-10-15] MEDS: LEVOTHYROXINE SODIUM 25 MCG TABLET PO SCH (05:30)
[2020-10-15] MEDS: LINACLOTIDE 145 MCG CAPSULE PO SCH (05:30)
[2020-10-15 05:40] LABS: Albumin Level 3.1 gm/dl (3.4-5.0); BUN Creatinine Ratio 26.8 (10-20); Calcium 7.9 mg/dl (8.5-10.1); Est GFR (African American) 127.7; Est GFR (Non-African American) 110.2; Magnesium 2.1 mg/dl (1.8-2.4); Potassium 3.7 mmol/L (3.5-5.1)
[2020-10-15 05:43] LABS: Albumin Globulin Ratio 1.1 (0.9-2); Bilirubin,Total 0.7 mg/dl (0.2-1); Globulin 2.8 gm/dl (2.5-4.0); Phosphorus 3.4 mg/dl (2.5-4.9); Total Protein 5.9 gm/dl (6.4-8.2)
[2020-10-15] MEDS ORDERED: POTASSIUM CHLORIDE CRTAB 20 MEQ TABCR PO STA (06:15)
[2020-10-15] MEDS: POLYETHYLENE (MIRALAX) 17 GM PACK PO SCH ×2 (08:04)
[2020-10-15] MEDS: ENOXAPARIN INJ 40 MG/0.4 ML SYR SQ SCH (08:04)
[2020-10-15] MEDS: DOCUSATE SODIUM/SENNA 50/8.6MG TAB PO SCH (08:05)
[2020-10-15] MEDS: amLODIPine BESYLATE 5 MG TAB PO SCH (08:05)
[2020-10-15] MEDS: METOPROLOL TARTRATE 25 MG TAB PO SCH (08:05)
[2020-10-15] MEDS: FAMOTIDINE 20 MG TAB PO SCH (08:05)
[2020-10-15] MEDS: PANTOprazole 40 MG TAB PO SCH (08:05)
--- NOTE | 2020-10-15 10:33 | Critical Care Progress Note ---
Date of Service October 15, 2020 Assessment & Plan (1) Altered mental status: (2) Abdominal pain: (3) Headache: (4) Pulmonary embolism: (5) Depression: (6) Hypothyroidism: (7) DVT prophylaxis: Admission and Anticipated Discharge Date Admission Date: October 12, 2020 Supervising Physician Co-Signing Physician Notes Dr. Truong was resident physician during care of patient. I separately evaluated patient for atkins portions of the history and the exam. I was present during the critical portion of medical decision making, and I discussed the case with the resident. I generally agree with the findings and plan. Trial of ketamine to see if it will augment pain response, pain went from 9 out of 10 to 7 out of 10 duration was not very long. There was improvement in pain, patient is stable for downgrade out of ICU or discharge that decision will be with the hospitalist medicine service. Subjective Patient complaining of 9/10 lower abdominal pain at midline. Per nursing, this is not new and patient has had for years. + nausea and headache. Requesting clear liquid diet because of the abdominal discomfort. + constipation. States that had BM after fleet enema yesterday but is refusing enema today because it is uncomfortable. Review of Systems Review of Systems: Constitutional: Denies fever, chills Cardiovascular: Denies Chest pain Respiratory: Denies shortness of breath Gastrointestinal: Denies vomiting, diarrhea Genitourinary: Denies urinary symptoms including dysuria Musculoskeletal: Denies weakness Neurological: Denies numbness, tingling, focal weakness Physical Exam Physical Exam: General: A&Ox3. NAD. Cooperative. HEENT: Atraumatic, normocephalic. EOMI. PERRL. Pupils slightly dilated. Pulm: CTAB. -wheezes, -rales, -rhonchi. Cardiac: RRR, -mrg. No pedal edema, Abdominal: Mild diffuse abd TTP, worst at midline lower abd, wincing to palpation at that region during exam. Integumentary: Peripheral IV at R hand. L subclavian port, nonerythematous. Results & Data Results & Data ([facility]) Vital Signs (Past 12 Hours) Vital Signs Temp Pulse Resp BP Pulse Ox 10/15/20 06:14 75 12 153/103 H 98 10/15/20 05:14 81 16 168/99 H 97 10/15/20 04:14 37.2 C 68 18 130/96 97 10/15/20 03:13 72 24 156/104 H 97 10/15/20 02:14 68 20 144/71 H 97 10/15/20 01:13 68 18 116/66 93 10/15/20 00:14 71 16 136/78 96 10/15/20 00:00 37.3 C 68 22 148/89 H 96 10/14/20 23:02 76 22 166/103 H 96 10/14/20 22:13 85 14 178/95 H 95 10/14/20 21:13 90 19 167/105 H 96 10/14/20 20:14 70 19 163/102 H 94 Resident Activity Tracking Resident Involvement: Resident Care Provided Care Provided: Adult Hospital Medicine
[2020-10-15] MEDS ORDERED: SODIUM CHLORIDE 0.9% IV ONE (11:00)
[2020-10-15] MEDS ORDERED: KETAMINE HCL IV ONE (11:00)
[2020-10-15] MEDS: VENLAFAXINE HCL XR 150 MG CAPXR PO SCH (12:09)
--- NOTE | 2020-10-15 15:02 | Discharge Summary ---
Date of Service October 15, 2020 Admission HPI Per Admitting Provider Danuta Rader is a 39-year-old female with a past medical history of gastric ulcers, hypertension, hypothyroidism, chronic pain, lupus, tension headache, and fibromyalgia who presents with abdominal pain that has been progressively worsening over the past week. She has had multiple admissions and clinic visits for similar complaints but so far studies have turned up no clear cause. She reports a history of gastroparesis but has had a previously normal gastric emptying study on past admissions for similar complaints. She has had consistently normal KUBs, Abd CTs. She has seen multiple gastroenterologists, last seen at [facility] where they recommended a mesenteric duplex to evaluate for ischemia. She last had EGD on 07/10/20 showing retained food in gastric fundus, diffuse severe inflammation w/ erythema, serpentine ulcerations and shallow ulcerations. Testing negative for H.pylori. Had colonoscopy on the same date with poor preparation, only external hemorrhoids noted. Biopsies of left and right colon unremarkable. As above, gastric emptying study done on 08/27/20 was normal. She currently rates her pain as a 10/10. Also reports nausea but no vomiting. Tried Tylenol with no relief. Also reports some confusion starting today. Says it has been difficult for her to remember things that are normally second nature to her--states she spent an hour today trying to explain to her mother how to get somewhere that she regularly visits. In the ED the patient was found to have elevated blood pressure in the 220s/100s, for which she received hydralazine 10mg IV and Lopressor 5mg IV with minimal improvement. She also received Tylenol 1000mg IV x1, Toradol 30mg IV x1, Dilaudid 0.5mg IV x1, Reglan 10mg IV x1, and Benadryl 25mg IV x1. Principal Diagnosis abdominal pain Discharge Exam Constitutional WD/WN, vitals as above Eyes PERRL, conjunctivae normal, anicteric sclerae Respiratory normal respiratory effort, lungs clear to auscultation Cardiovascular RRR, no murmur, no edema Gastrointestinal (Abdomen) Inspection/Auscultation: abdomen normal to inspection and + hypoactive bowel sounds; abdomen not distended, no abdominal wall ecchymosis and no abdominal edema Percussion/Palpation: abdomen soft; abdomen nontender, no guarding, no hepatosplenomegaly, no hernia, no abdominal mass, no dullness to percussion and no fluid wave Skin no rashes, warm and dry Psychiatric Orientation: alert and oriented x 3 Discharge Data Allergies Allergy/AdvReac Type Severity Reaction Status Date / Time Sulfa (Sulfonamide Allergy Intermediate LUPUS Verified 10/12/20 14:55 Antibiotics) FLARE UP dexamethasone Allergy Unknown HIVES Verified 10/12/20 14:55 duloxetine Allergy Unknown UNKNOWN Verified 10/12/20 14:55 escitalopram Allergy Unknown UNKNOWN Verified 10/12/20 14:55 latex Allergy Unknown HIVES Verified 10/12/20 14:55 morphine Allergy Unknown local Verified 10/12/20 14:55 reaction at site pregabalin Allergy Unknown UNKNOWN Verified 10/12/20 14:55 Consultations 10/12/20 18:34 ED Decision to Admit Stat 10/12/20 21:28 Consult Gastroenterology Routine 10/14/20 00:13 Consult Poultry Pathologist Routine Ordered Studies 10/12/20 15:31 CT head/brain wo con Stat 10/13/20 08:00 US duplex mesenteric Routine 10/13/20 23:57 CT head/brain wo con Urgent 10/14/20 01:05 MR brain wo con Stat Hospital Course (1) Abdominal pain: 39-year-old female with a past medical history of chronic pain, lupus, tension headache, fibromyalgia, gastric ulcers, hypertension, hypothyroidism who presented with abdominal pain that has been progressively worsening over the past week. Abdominal Pain: -Unclear etiology-suspect multifactorial including trigger points, extended narcotic use, and gastritis -Avoid NSAIDs due to h/o gastric ulcers -Continue Linzess 145mcg PO daily--patient had been prescribed this but pending prior auth so had not started at home -Continue Famotidine & Pantoprazole -Miralax 17g PO daily -To have follow-up with [facility] on 10/19 for continued evaluation of abdominal pain sources Hypertension: -continue home medications without change History of Gastric Ulcers: -continue home Famotidine and pantoprazole -Avoid NSAIDs Hypothyroidism: -Continue home levothyroxine Fibromyalgia: -Continue home gabapentin Depression: -Continue home venlafaxine Total Time Total Time Spent Total Time Spent (In Minutes): <30 Discharge Plan Discharge Items Patient Disposition: Home - Self-Care Reason For Visit: ABDOMINAL PAIN Discharge Diagnosis: abdominal pain Condition on Discharge: Good Activity: Per Instructions section Non-emergency contact: Primary Care Provider and Heel Packer Call non-emergency contact if: you have any medication questions and your symptoms worsen Follow-up/Referrals: Saravanan Gooden MD [Primary Care Provider] - Diet: Regular Addtl Attending Provider Instructions: You were seen and admitted following concern for persistent abdominal pain despite your current medical regimen. During this evaluation, you had further treatment and stabilization of your abdominal pain. Now that you are better tolerating oral intake and able to tolerate some more solid foods, you are being discharged. When it comes to the delayed gastric emptying that you had with your GI doctor, there are a variety of potential causes for this to occur, it is important that you continue to work with your primary care provider and your crumb packer in order to best treat all the potential contributors for this pain, as pain medication is also one that can lead to further slowing of your abdomen's function. Pending Studies at Discharge: No Stand-Alone Forms: My [facility] [employer], Smoking Cessation Medications and DC Order Prescriptions: Continued baclofen 20 mg Tablet 20 mg PO TID PRN (Reason: abdominal pian) Qty: 20 RF: 0 gabapentin 300 mg Capsule 900 mg PO TID Qty: 30 RF: 0 Linzess 145 mcg Capsule 145 mcg PO DAILYBB Qty: 30 RF: 0 venlafaxine 150 mg capsule,extended release 24hr 300 mg PO QAM RF: 0 levothyroxine 25 mcg tablet 25 mcg PO QAM RF: 0 famotidine 20 mg tablet 20 mg PO BID RF: 0 pantoprazole 40 mg tablet,delayed release (DR/EC) 40 mg PO BID 30 Days Qty: 60 RF: 1 amlodipine 10 mg tablet 10 mg PO QAM RF: 0 metoprolol tartrate 25 mg tablet 25 mg PO QAM RF: 0 Discharge Orders: Discharge Order (Routine); Ordered 10/15/20 Ordered By: Johnson Wilson Admission Data Admit Date/Time: 10/12/20 19:55 Attending Provider: Lester Roger Admit Provider: Chay Velazquez Primary Care Provider: Saravanan Gooden Other Providers: Oswaldo Waters ; Rashawn Rashid ; Trey Chen Other Interventions: Discharge Summary Assessment (RN) Last Done: 10/15/20 15:22 Supervising Physician Co-Signing Physician Notes I personally examined the patient and verified all atkins points of history and exam, discussed case, and agree with decision making with Dr Wilson feeling about hte same but would like to go home later d/w ICU input appreciated vitals noted nad heent nc at mmm breathing unlabored no accessory muscles good effort skin no rashes no pallor or icterus abdominal pain -still about the same -multiple factors at play -does seem safe for home ---->d/w pt likely is multifactorial - would not want trigger points laid to rest as a nonfactor given that sometimes it takes several rounds of injections to get ahead of severaly symptomatic trigger points ---->continue mucosal/motility w/u and treatment at [facility]
--- NOTE | 2020-10-15 16:27 | Progress Notes ---
DATE: 10/15/2020 The patient has been extubated and is awake and alert. She is anticipating discharge today and has a followup appointment on Thursday with Dr. Doty at [facility]. She is questioning whether she can be discharged on pain medication. I was skeptical about this given her reaction with the baclofen, but I will leave the final decision up to Dr. Gooden and she can follow up with him and her doctor at [facility] as an outpatient.
--- NOTE | 2020-10-15 16:47 | Billing Data ---
Date of Service October 15, 2020 Coding Level of Care Code D/C Day Management <30 mins
--- NOTE | 2020-10-16 07:25 | Billing Data ---
Date of Service October 15, 2020 Coding Level of Care Code 29076 Subseq Hosp Care Lvl 3
[2020-10-17 01:17] LABS: Codeine Urine NEGATIVE ng/mL (<50); Hydrocodone Urine NEGATIVE ng/mL (<50); Hydromor Urine NEGATIVE ng/mL (<50); Morphine Urine 557 ng/mL (<50); Norhydrocodone Conf Ur NEGATIVE ng/mL (<50); Noroxycodone Urine 271 ng/mL (<50); Oxycodone Urine 442 ng/mL (<50); Oxymorph Urine 96 ng/mL (<50)
[2020-10-18 21:23] LABS: Porphobilinogen Ran Ur <0.15 mg/g creat (<0.22)
--- NOTE | 2020-10-21 16:48 | Coding Query ---
CODING QUERY To promote full compliance with coding requirements relating to patient care, provider participation is requested in all cases of biomedical engineer uncertainty. Please assist us with the question(s) below: Coding Question(s): 1. The Procedure Note by Dr. Tony Vásquez on 10/14/20 documents, Acute Respiratory Failure requiring intubation and management and the Progress Note on 10/14/[address] Kd Ryan documents AHRF, intubated on ventilator. AHRF is an abbreviation for Acute Hypoxic Respiratory Failure. There is no further mention of Acute Respiratory Failure. The Critical Care Progress Note on 10/14/20 documents, "The reason of intubation was patient's apneic episodes and somnolence". Please specify below in your clinical opinion, regarding Acute Respiratory Failure to determine if it was treated or ruled-out. (x ) Acute Respiratory Failure was treated ( ) Acute Hypoxic Respiratory was treated ( ) Acute Respiratory Failure/Acute Hypoxic Respiratory Failure is Ruled-Out ( ) Other: Please Specify 2. Please Specify below, in your clinical opinion, regarding the most likely etiology of the Abdominal Pain. (x ) most likely from Chronic Pain Syndrome ( ) most likely from narcotic use (x ) most likely from gastritis ( ) most likely from Constipation ( x ) most likely from functional dyspepsia (x ) most likely from Other: Please Specify___abdominal wall trigger points Physician's Response(s): abdominal pain highly likely multifactorial Thank you Leighann Sultana Principal Diagnosis: "that condition established after study, to be chiefly responsible for occasioning the admission of the patient to the hospital for care." Co-Existing Principal Diagnosis: "when two or more diagnoses equally meet the criteria for principal diagnosis as determined by the circumstances of admission, diagnostic work up, and/or therapy provided, and the Alphabetic Index, Tabular List, or another coding guideline does not provide sequencing direction, any one of the diagnoses may be sequenced first." "When the physician has documented what appears to be a current diagnosis in the body of the record, but has not included the diagnosis in the final diagnostic statement, the physician should be asked whether the diagnosis should be added." (Source Coding Clinic 2 QTR90. p3-4) NILDA
== END 2020-10-15 17:10 | disposition home or self-care (01) | DRG 91 ==
LOC: ED 11:09 → SUATTDRO 19:55 → 2S 19:55 → 1E 10-13 23:32

== ENCOUNTER 2021-05-08 16:12 | Observation (INO) ==
[2021-05-08 17:36] LABS: Basophils # (auto) 0.02 K/uL (0-0.2); Basophils % (auto) 0.3 %; Eosinophils # (auto) 0.09 K/uL (0-0.5); Eosinophils % (auto) 1.2 %; Hematocrit (blood only) 42.1 % (37-47); Hemoglobin 14.9 g/dL (12.0-16.0); Immature Granulocytes # (auto) 0.02 K/uL (0.00-0.02); Immature Granulocytes % (auto) 0.3 %; Lymphocytes # (auto) 2.12 K/uL (1.2-3.4); Lymphocytes % (auto) 28.2 %; Mean Corpuscular Hgb Conc 35.4 g/dL (32-36); Mean Corpuscular Volume 90.5 fL (80-100); Mean Platelet Volume 10.7 fL (7.4-10.4); Monocytes # (auto) 0.41 K/uL (0.11-0.59); Monocytes % (auto) 5.4 %; Neutrophils # (auto) 4.87 K/uL (1.4-6.5); Neutrophils % (auto) 64.6 %; Platelet Count 262 K/uL (130-400); RDW Coefficient of Variation 12.3 % (11.5-14.5); RDW Standard Deviation 40.2 fL (36.4-46.3); Red Blood Count 4.65 M/uL (4.2-5.4); White Blood Count 7.53 K/uL (4.8-10.8)
--- NOTE | 2021-05-08 17:41 | Emergency Department Note ---
History of Present Illness General Chief complaint: Chest Pain Stated complaint: CHEST PAIN,HEADACHE Time Seen by Provider: 05/08/21 17:27 Source: patient Mode of arrival: ambulatory Limitations: other (memory problems) History of Present Illness Provider complaint: headache, chest pain, htn Onset (ago): day(s) 5 Maximum Pain Intensity: 8 Relieved By: + none Exacerbated By: + movement Associated symptoms: + chest pain and + headaches; no fever/chills, no loss of appetite, no malaise, no shortness of breath or no syncope This is a 40-year-old female presents emergency department with multiple complaints. Patient states on Thursday she began developing persistent headaches and left-sided chest pain. Patient states symptoms were fairly constant all weekend into the beginning of this week. She was checking her blood pressure at home which she typically does 3 times a day due to history of high blood pressure and current medications. She states blood pressures continue to trend up. She states today she also developed difficulty with her memory and speech, vision changes, lightheadedness. She denies any recent change in medications or recent illness. No change in GI or habits. No recent falls or trauma. She states she is otherwise eating and drinking normally. Patient does have a port due to poor access. Pt seen during a time of high acuity and national emergency pandemic while wearing PPE. Home Medications Medication Instructions Recorded Confirmed Type levothyroxine 25 mcg tablet 25 mcg PO QAM 07/10/19 05/08/21 History pantoprazole 40 mg tablet,delayed 40 mg PO BID 30 Days #60 tab 08/15/20 05/08/21 Rx release baclofen 20 mg tablet 20 mg PO TID PRN #20 tab 08/30/20 05/08/21 Rx gabapentin 300 mg capsule 900 mg PO TID #30 cap 08/30/20 05/08/21 Rx amlodipine 10 mg tablet 10 mg PO QAM 10/12/20 05/08/21 History carvedilol 25 mg tablet 25 mg PO BID 04/17/21 05/08/21 History furosemide 20 mg tablet 20 mg PO DAILY #30 tab 04/17/21 05/08/21 Rx linaclotide 290 mcg capsule 290 mcg PO QAM 04/17/21 05/08/21 History (Linzess) losartan 100 mg tablet 100 mg PO DAILY 04/17/21 05/08/21 History lubiprostone 24 mcg capsule 24 mcg PO BID 05/08/21 05/08/21 History (Amitiza) ondansetron HCl 4 mg tablet 4 mg PO DAILY PRN 05/08/21 05/08/21 History venlafaxine 100 mg tablet 200 mg PO DAILY 05/08/21 05/08/21 History Allergies Allergy/AdvReac Type Severity Reaction Status Date / Time Sulfa (Sulfonamide Allergy Intermediate LUPUS Verified 05/08/21 17:21 Antibiotics) FLARE UP dexamethasone Allergy Unknown HIVES Verified 05/08/21 17:21 duloxetine Allergy Unknown UNKNOWN Verified 05/08/21 17:21 escitalopram Allergy Unknown UNKNOWN Verified 05/08/21 17:21 latex Allergy Unknown HIVES Verified 05/08/21 17:21 morphine Allergy Unknown local Verified 05/08/21 17:21 reaction at site pregabalin Allergy Unknown UNKNOWN Verified 05/08/21 17:21 Past Med/Surg History Medical History Anxiety Chronic pain syndrome Depression Fibromyalgia Gastritis Gastroparesis History of kidney infection History of lupus anticoagulant disorder History of migraine History of multiple miscarriages History of ovarian cyst History of umbilical hernia Hypertension Hypothyroidism Intractable epigastric abdominal pain Lupus (04/04/14) Lupus nephritis Osteoarthritis Peptic ulcer disease Pleuritis (09/17/14) history of Poorly-controlled hypertension Post traumatic stress disorder Pulmonary embolism history of Surgical History H/O: hysterectomy History of tonsillectomy and adenoidectomy Hx of appendectomy Hx of cholecystectomy Port-A-Cath in place (08/29/20) Mediport Placement, Left Subclavian Vein Dr. Garcia 08/29/2020 Family History Sister SLE (systemic lupus erythematosus) Family/Other SLE (systemic lupus erythematosus) maternal side Social History Smoking Status: Former smoker Tobacco Type: Cigarettes Age Started Using Tobacco: 23; Age Quit Using Tobacco: 39; Second Hand Exposure: No; Hx Alcohol Use: No Hx Substance Use: No Preferred Language: Nauruan Communication Ability: Effective Ethics Instructor Required: No Beliefs That Will Affect Care: None marital status: Single Current Living Situation: Spouse Current Living Situation Comment: [facility] in [place] current occupational status: employed 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 How many Children do You have: 2 Other Information That Helps Us Care for You: No Feels Safe at Home: Yes Safety Concerns: Feels Safe At This Time Assistive Devices: None Review of Systems A total of 10 systems reviewed and were otherwise negative All systems reviewed & are unremarkable except as noted in HPI & below Physical Exam Vital Signs Vital Signs - 24 hr 05/08/21 21:47 05/08/21 21:50 05/08/21 22:30 Pulse Rate 96 H Pulse Rate from SpO2 Sensor 95 H 96 H 91 H Respiratory Rate 24 Blood Pressure 168/122 H 188/133 H Blood Pressure Mean 137 151 Pulse Oximetry 95 94 92 Oxygen Delivery Method Room Air Room Air Room Air 05/08/21 22:47 05/08/21 22:50 05/08/21 23:02 Pulse Rate Pulse Rate from SpO2 Sensor 94 H 93 H 97 H Respiratory Rate Blood Pressure Blood Pressure Mean Pulse Oximetry 93 91 89 L Oxygen Delivery Method 05/08/21 23:15 05/08/21 23:30 Pulse Rate Pulse Rate from SpO2 Sensor 95 H Respiratory Rate 27 H 26 H Blood Pressure 184/123 H 172/123 H Blood Pressure Mean 143 139 Pulse Oximetry 90 Oxygen Delivery Method GENERAL: alert, anxious appearing, well nourished, no distress, non-toxic, BMI 34 EYE EXAM: normal conjunctiva, PERRL and EOM's grossly intact OROPHARYNX: no exudate, no erythema, lips, buccal mucosa, and tongue normal and mucous membranes are moist NECK: supple, no nuchal rigidity, no adenopathy, non-tender LUNGS: Clear to auscultation. Normal chest wall mechanics, no w/r/r HEART: no murmurs, S1 normal and S2 normal, left anterior superior chest wall port ABDOMEN: abdomen soft, non-tender, normo-active bowel sounds, no masses, no rebound or guarding. BACK: Back is symmetrical on inspection and there is no deformity, no midline tenderness, no CVA tenderness. SKIN: no rashes and no bruising UPPER EXTREMITIES: upper extremities are grossly normal. FROM, nml pulses b/l. LOWER EXTREMITIES: No pitting edema. FROM, nml pulses b/l. NEURO EXAM: Normal sensorium, difficulty with memory but is oriented, cranial nerves II-XII grossly intact, normal speech, no gross weakness of arms, no gross weakness of legs. Gross sensation intact. Course Course 1909: Patient updated on labs. Blood pressure still elevated and patient still reports symptomatic. 2001: Patient states no improvement in her symptoms since addition of blood pressure medication and improvement in her heart rate and blood pressure. 2100: Discussed with Dr. Perdue. Administered Medications Amlodipine Besylate (Amlodipine Besylate 5 Mg Tab) 10 mg PO QAM THAO Stop: 06/08/21 08:59 Last Admin: 05/09/21 09:05 Dose: 10 mg Documented by: [id number] Baclofen (Baclofen 20 Mg Tab) 20 mg PO TID PRN PRN Reason: pain Stop: 06/08/21 13:59 Last Admin: 05/09/21 14:19 Dose: 20 mg Documented by: [id number] Carvedilol (Carvedilol 25 Mg Tab) 25 mg PO BID THAO Stop: 06/08/21 08:59 Last Admin: 05/09/21 09:04 Dose: 25 mg Documented by: [id number] Enoxaparin Sodium (Enoxaparin Inj 40 Mg/0.4 Ml Syr) 40 mg SQ QAM THAO Stop: 06/08/21 08:59 Last Admin: 05/09/21 09:04 Dose: 40 mg Documented by: [id number] Furosemide (Furosemide 20 Mg Tab) 20 mg PO DAILY THAO Stop: 06/08/21 08:59 Last Admin: 05/09/21 09:04 Dose: 20 mg Documented by: [id number] Gabapentin (Gabapentin 300 Mg Cap) 900 mg PO TID THAO Stop: 06/08/21 13:59 Last Admin: 05/09/21 14:19 Dose: 900 mg Documented by: [id number] Levothyroxine Sodium (Levothyroxine Sodium 25 Mcg Tablet) 25 mcg PO DAILYBB THAO Stop: 06/08/21 06:29 Last Admin: 05/09/21 09:05 Dose: 25 mcg Documented by: [id number] Losartan Potassium (Losartan Potassium 50 Mg Tab) 100 mg PO DAILY THAO Stop: 06/08/21 08:59 Last Admin: 05/09/21 09:04 Dose: 100 mg Documented by: [id number] Polyethylene Glycol (Polyethylene (Miralax) 17 Gm Pack) 17 gm PO QAM THAO Stop: 06/08/21 08:59 Last Admin: 05/09/21 09:04 Dose: 17 gm Documented by: [id number] Venlafaxine HCl (Venlafaxine Hcl 50 Mg Tab) 200 mg PO DAILY THAO Stop: 06/08/21 08:59 Last Admin: 05/09/21 09:04 Dose: 200 mg Documented by: [id number] Discontinued Medications Acetaminophen/Butalbital/Caffeine (Butalbital/Acetamin/Caffeine Tab) 1 tab PO NOW STA Stop: 05/09/21 13:46 Last Admin: 05/09/21 14:19 Dose: 1 tab Documented by: [id number] Baclofen (Baclofen 10 Mg Tab) 10 mg PO ONE ONE Stop: 05/09/21 10:00 Last Admin: 05/09/21 10:58 Dose: 10 mg Documented by: [id number] Carvedilol (Carvedilol 12.5 Mg Tab) 25 mg PO NOW STA Stop: 05/09/21 00:04 Last Admin: 05/09/21 00:27 Dose: 25 mg Documented by: [id number] Fentanyl Citrate (Fentanyl Citrate 100 Mcg/2 Ml Vial) 50 mcg IV NOW STA Stop: 05/08/21 20:14 Last Admin: 05/08/21 20:45 Dose: 50 mcg Documented by: [id number] Fentanyl Citrate (Fentanyl Citrate 100 Mcg/2 Ml Vial) Confirm Administered Dose 100 mcg .ROUTE .STK-MED ONE Stop: 05/09/21 12:37 Last Increment: 05/09/21 13:06 Dose: 50 mcg Documented by: [id number] Gabapentin (Gabapentin 600 Mg Tab) 600 mg PO NOW STA Stop: 05/09/21 09:59 Last Admin: 05/09/21 10:58 Dose: 600 mg Documented by: [id number] Heparin Sodium (Porcine) (Heparin (Porcine) 1000 Unit/Ml 10 Ml (Business Operations Specialist Use Only)) Confirm Administered Dose 10,000 units .ROUTE .STK-MED ONE Stop: 05/09/21 12:37 Last Admin: 05/09/21 13:06 Dose: 5,000 units Documented by: [id number] Heparin Sodium/Sodium Chloride (Heparin In Nss Infusion 1000 Unit/500 Ml (2 U/Ml) Bag) Confirm Administered Dose 3,000 units IV .STK-MED ONE Stop: 05/09/21 12:37 Last Admin: 05/09/21 12:53 Dose: 3,000 units Documented by: [id number] Sodium Chloride (Nss) 500 mls @ 80 mls/hr IV .[id number] THAO Stop: 06/07/21 17:44 Last Infusion: 05/09/21 07:45 Dose: 0 mls/hr Documented by: [id number] Admin: 05/09/21 01:39 Dose: 80 mls/hr Documented by: [id number] Infusion: 05/09/21 01:19 Dose: 0 mls/hr Documented by: [id number] Admin: 05/08/21 19:04 Dose: 80 mls/hr Documented by: [id number] Acetaminophen (Ofirmev) 1,000 mg in 100 mls @ 400 mls/hr IV NOW STA Stop: 05/08/21 19:34 Last Infusion: 05/08/21 19:56 Dose: 0 mls/hr Documented by: [id number] Admin: 05/08/21 19:41 Dose: 400 mls/hr Documented by: [id number] Lorazepam (Ativan) 0.5 mg in 1 mls @ 1 mls/min IV NOW STA Stop: 05/08/21 20:13 Last Admin: 05/08/21 20:56 Dose: 1 mls/min Documented by: [id number] Ioversol (Optiray 320 125ml) 116 ml IV ONCE ONE Stop: 05/08/21 18:50 Last Admin: 05/08/21 18:50 Dose: 1 ml Documented by: [id number] Ketorolac Tromethamine (Ketorolac Tromethamine 15 Mg/Ml Vial) 15 mg IV NOW STA Stop: 05/09/21 01:10 Last Admin: 05/09/21 02:35 Dose: 15 mg Documented by: [id number] Labetalol HCl (Labetalol Hcl Iv 5 Mg/Ml 20ml) 10 mg IV NOW STA Stop: 05/08/21 19:21 Last Admin: 05/08/21 19:42 Dose: 10 mg Documented by: [id number] Cosigned by: [id number] Labetalol HCl (Labetalol Hcl Iv 5 Mg/Ml 20ml) 10 mg IV NOW STA Stop: 05/08/21 20:14 Last Admin: 05/08/21 20:43 Dose: 10 mg Documented by: [id number] Cosigned by: [id number] Methylprednisolone (Methylprednisolone 40 Mg/Ml Vial) 40 mg IV NOW ONE Stop: 05/09/21 15:16 Last Admin: 05/09/21 15:06 Dose: 40 mg Documented by: [id number] Midazolam HCl (Midazolam Hcl 1 Mg/Ml 2ml Vial) Confirm Administered Dose 2 mg .ROUTE .STK-MED ONE Stop: 05/09/21 12:37 Last Admin: 05/09/21 13:07 Dose: 2 mg Documented by: [id number] Nicardipine HCl (Nicardipine Hcl Inj 2.5 Mg/Ml 10 Ml Amp) Confirm Administered Dose 25 mg .ROUTE .STK-MED ONE Stop: 05/09/21 12:37 Last Admin: 05/09/21 12:53 Dose: 25 mg Documented by: [id number] Nitroglycerin/Dextrose (Nitroglycerin/D5w 100mcg/Ml 20ml Syr) Confirm Adm inistered Dose 2,000 mcg .ROUTE .STK-MED ONE Stop: 05/09/21 12:37 Last Admin: 05/09/21 12:53 Dose: 2,000 mcg Documented by: [id number] Ondansetron HCl (Ondansetron Inj 2 Mg/Ml 2 Ml Vial) 4 mg IV ONE ONE Stop: 05/09/21 03:49 Last Admin: 05/09/21 04:04 Dose: 4 mg Documented by: [id number] Sumatriptan Succinate (Sumatriptan Succinate 6 Mg/0.5 Ml Vial) 6 mg SQ NOW STA Stop: 05/09/21 09:51 Last Admin: 05/09/21 10:57 Dose: Not Given Documented by: [id number] Critical Care Time Critical Care Time: Yes Total Critical Care Time: 44 Critical care of [time] min performed to assess and manage high likelihood of life-threatening [organ system decline], involving labs and imaging performed with assessment to evaluate XX diagnosis] with frequent reassessment. This time includes bedside time, treatment discussions with patient/family/consultants, documentation time and excludes procedure time. Medical Decision Making Differential Diagnosis Differential diagnoses includes but is not limited to acute coronary syndrome, myocardial infarction, pericarditis, pulmonary embolus, aortic dissection, pneumonia, pneumothorax, musculoskeletal, shingles, esophageal, headache, tension headache, cluster headache, migraine, subarachnoid hemorrhage, meningitis, mass, central venous thrombus, concussion, trauma and epidural/subdural hemorrhage. Medical Records Attestation: I reviewed the patient's medical records. Home Medications Current Medication List: was personally reviewed by me Laboratory Data Attestation: I reviewed the patient's lab results. Result diagrams: 05/09/21 05:22 05/09/21 05:22 Lab Results 05/08/21 05/08/21 05/08/21 Range/Units 17:29 17:29 17:29 WBC 7.53 (4.8-10.8) K/uL RBC 4.65 (4.2-5.4) M/uL Hgb 14.9 (12.0-16.0) g/dL Hct 42.1 (37-47) % MCV 90.5 (80-100) fL MCH 32.0 (25-34) pg MCHC 35.4 (32-36) g/dL RDW Std Deviation 40.2 (36.4-46.3) fL RDW Coeff of Meg 12.3 (11.5-14.5) % Plt Count 262 (130-400) K/uL MPV 10.7 H (7.4-10.4) fL Immature Gran % (Auto) 0.3 % Neut % (Auto) 64.6 % Lymph % (Auto) 28.2 % Simpson % (Auto) 5.4 % Eos % (Auto) 1.2 % Baso % (Auto) 0.3 % Neut # (Auto) 4.87 (1.4-6.5) K/uL Lymph # (Auto) 2.12 (1.2-3.4) K/uL Simpson # (Auto) 0.41 (0.11-0.59) K/uL Eos # (Auto) 0.09 (0-0.5) K/uL Baso # (Auto) 0.02 (0-0.2) K/uL Immature Gran # (Auto) 0.02 (0.00-0.02) K/uL PT 10.9 (9.0-12.0) Seconds INR 1.1 (0.9-1.1) APTT 28.8 (21.0-31.0) Seconds PTT Ratio 1.1 Sodium 142 (136-145) mmol/L Potassium 3.8 (3.5-5.1) mmol/L Chloride 113 H (98-107) mmol/L Carbon Dioxide 24 (21-32) mmol/L Anion Gap 5.0 (3-11) BUN 15 (7-18) mg/dl Creatinine 0.93 (0.6-1.2) mg/dl Est Cr Clr Drug Dosing 103.5 ml/min Est GFR ( Amer) 89.1 ml/min Est GFR (Non-Af Amer) 76.9 ml/min BUN/Creatinine Ratio 16.4 (10-20) Glucose 84 (70-99) mg/dl Calcium 8.8 (8.5-10.1) mg/dl Total Bilirubin 0.4 (0.2-1) mg/dl AST 14 L (15-37) U/L ALT 21 (12-78) U/L Alkaline Phosphatase 58 (45-117) U/L Troponin I < 0.015 (0-0.045) ng/ml Total Protein 7.4 (6.4-8.2) gm/dl Albumin 3.9 (3.4-5.0) gm/dl Globulin 3.5 (2.5-4.0) gm/dl Albumin/Globulin Ratio 1.1 (0.9-2) HCG, Qual (Negative) COVID-19 Eval Order SARS-CoV-2 (PCR) (Negative) 05/08/21 05/08/21 05/08/21 Range/Units 17:29 20:02 20:02 WBC (4.8-10.8) K/uL RBC (4.2-5.4) M/uL Hgb (12.0-16.0) g/dL Hct (37-47) % MCV (80-100) fL MCH (25-34) pg MCHC (32-36) g/dL RDW Std Deviation (36.4-46.3) fL RDW Coeff of Meg (11.5-14.5) % Plt Count (130-400) K/uL MPV (7.4-10.4) fL Immature Gran % (Auto) % Neut % (Auto) % Lymph % (Auto) % Simpson % (Auto) % Eos % (Auto) % Baso % (Auto) % Neut # (Auto) (1.4-6.5) K/uL Lymph # (Auto) (1.2-3.4) K/uL Simpson # (Auto) (0.11-0.59) K/uL Eos # (Auto) (0-0.5) K/uL Baso # (Auto) (0-0.2) K/uL Immature Gran # (Auto) (0.00-0.02) K/uL PT (9.0-12.0) Seconds INR (0.9-1.1) APTT (21.0-31.0) Seconds PTT Ratio Sodium (136-145) mmol/L Potassium (3.5-5.1) mmol/L Chloride (98-107) mmol/L Carbon Dioxide (21-32) mmol/L Anion Gap (3-11) BUN (7-18) mg/dl Creatinine (0.6-1.2) mg/dl Est Cr Clr Drug Dosing ml/min Est GFR ( Amer) ml/min Est GFR (Non-Af Amer) ml/min BUN/Creatinine Ratio (10-20) Glucose (70-99) mg/dl Calcium (8.5-10.1) mg/dl Total Bilirubin (0.2-1) mg/dl AST (15-37) U/L ALT (12-78) U/L Alkaline Phosphatase (45-117) U/L Troponin I (0-0.045) ng/ml Total Protein (6.4-8.2) gm/dl Albumin (3.4-5.0) gm/dl Globulin (2.5-4.0) gm/dl Albumin/Globulin Ratio (0.9-2) HCG, Qual Negative (Negative) COVID-19 Eval Order Covid19 at [facility] SARS-CoV-2 (PCR) NEGATIVE (Negative) Imaging Data Radiologist's Impression: Chest X-Ray 05/08/21 17:14 XR chest 1V portable CLINICAL HISTORY: Chest Pain COMPARISON STUDY: Chest radiograph March 21, 2021. FINDINGS: Lung volumes are normal. Lungs are clear. There is no pneumothorax or pleural effusion. Cardiac size is normal. Mediastinal contours are normal. There is no evidence for pulmonary edema. Left subclavian Qcnogq-t-Jipl is in place. IMPRESSION: No acute cardiopulmonary findings. ACT 112: Negative or not required by law. Electronically signed by: Olegario Anderson M.D. 05/08/2021 5:43 PM Chest CTA 05/08/21 17:36 CT ANGIOGRAPHY OF THE CHEST, PULMONARY EMBOLUS PROTOCOL CLINICAL HISTORY: Atypical chest pain. COMPARISON STUDY: Chest CT June 27, 2020. Chest radiograph performed earlier today. TECHNIQUE: Following IV administration of Optiray, helical axial images of the chest were obtained utilizing the pulmonary embolus protocol. Maximal intensity projections and sagittal and coronal reformats were viewed on an independent 3D workstation. IV contrast was administered without complication. Automated exposure control was utilized for the study. A dose lowering technique was utilized adhering to the principles of ALARA. Repeat injection was performed due to motion artifact on initial study. CT DOSE: 2381.07 mGy.cm FINDINGS: Left subclavian Isoesi-s-Ddem is in place. There is no pulmonary embolus although this exam is mildly compromised by respiratory motion. No thoracic aortic dissection is noted. Borderline cardiomegaly is noted. There is no pericardial effusion. No enlarged axillary, mediastinal or hilar lymph nodes are present. Lungs are suboptimally assessed due to respiratory motion but there is no consolidation to suggest pneumonia. Central airways are patent. Note is made of a 1.9 cm irregular density within the upper outer quadrant of the right breast on axial image 173 of 291. Gallbladder surgically absent. IMPRESSION: 1. No pulmonary emboli identified although exam mildly compromised by respiratory motion. 2. 1.9 cm irregular density within the upper outer quadrant of the right breast. This probably reflects fibroglandular tissue however a breast mass cannot be excluded. Mammogram and ultrasound are recommended. 3. No acute process within the chest. ACT 112: Positive. There are findings on this exam that require communication between the performing entity and the patient following Patient Test Result Information Act ([place] Act 112) guidelines. Electronically signed by: Olegario Anderson M.D. 05/08/2021 7:[address] 05/08/21 17:36 CT OF THE HEAD WITHOUT CONTRAST CLINICAL HISTORY: Headache. Hypertension. Blurred vision. COMPARISON STUDY: MRI of the brain October 06, 2020. Head CT March 21, 2021. TECHNIQUE: Helical axial images of the head were obtained without IV contrast. Automated exposure control was utilized for the study. A dose lowering technique was utilized adhering to the principles of ALARA. FINDINGS: No acute intracranial hemorrhage, midline shift or mass effect is present. The ventricular system is unremarkable. The basal cisterns are patent. No extra-axial collections are present. There are no findings to suggest acute dural sinus thrombosis or acute territorial infarct. No significant calvarial abnormalities are present. 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 This is benign. IMPRESSION: No acute intracranial findings. ACT 112: Negative or not required by law. Electronically signed by: Olegario Anderson M.D. 05/08/2021 7:10 PM MDM Narrative This is a 40-year-old female with a history of hypertension and lupus who presents due to concern for 5 days of headache and chest pain, worsening today with accompanying dizziness and intermittent vision changes. Patient concerned she has a prior remote history of a stroke, does have lupus and follows with nephrology due to lupus nephritis. No obvious etiology per initial HPI although patient was having some difficulty with memory. Family was initially at bedside and helped. Patient answered questions of orientation appropriately, however was slow to recall recent events. Patient had a normal and nonfocal neuro exam otherwise. Due to patient's history and concern for etiology, labs drawn and sent, EKG performed, CT of the head and chest were also performed. No obvious ICH, CVA, or acute vascular pathology, no PE, no pericardial effusion, no dissection, no thoracic aneurysm. I do not suspect pericarditis/myocarditis. Patient's first troponin negative and EKG reassuring. Patient was tachycardic over this did improve with labetalol as ordered for her high blood pressure. Patient had no improvement with IV fluids and IV Tylenol. Patient had 2 doses of IV labetalol and continued to room for pain. Discussed with list for additional and admit. Given patient does take multiple pain medications at this time, I deferred additional blood pressure control to them as her blood pressure had improved despite her persistent symptoms and they wanted to avoid dropping her blood pressure too far too fast. I do feel there may be a component of anxi ety contributing to her symptoms. It is unclear how much the pain could also be driving her elevated blood pressure versus if this was a hypertensive urgency. No evidence of hypertensive emergency. An order was placed for continuous cardiac monitoring. The monitor shows a rate of _105_ with _sinus tachycardia_ rhythm. Impression & Plan Chest pain, Headache, Chronic pain syndrome, HTN (hypertension) Discharge Plan Visit Data Chief Complaint: Chest Pain Stated Complaint: CHEST PAIN,HEADACHE ED Provider: Gaby Houston Discharge Problem: Chest pain, Headache, Chronic pain syndrome, HTN (hypertension) Patient Disposition: Admitted As Inpatient Discharge Instructions Interventions: ED Discharge Assessment Last Done: 05/09/21 02:28 Discharge Problem: Chest pain Qualifiers: Chest pain type: unspecified Qualified Code(s): R07.9 - Chest pain, unspecified Headache Qualifiers: Headache type: unspecified Headache chronicity pattern: acute headache Intractability: intractable Qualified Code(s): R51.9 - Headache, unspecified HTN (hypertension) Qualifiers: Hypertension type: unspecified Qualified Code(s): I10 - Essential (primary) hypertension
--- NOTE | 2021-05-08 17:45 | XRay Report ---
XR chest 1V portable CLINICAL HISTORY: Chest Pain COMPARISON STUDY: Chest radiograph March 21, 2021. FINDINGS: Lung volumes are normal. Lungs are clear. There is no pneumothorax or pleural effusion. Car diac size is normal. Mediastinal contours are normal. There is no evidence for pulmonary edema. Left subclavian Jbkzew-t-Ioty is in place. IMPRESSION: No acute cardiopulmonary findings. ACT 112: Negative or not required by law. Electronically signed by: Olegario Anderson M.D. 05/08/2021 5:43 PM
[2021-05-08 17:47] LABS: INR 1.1 (0.9-1.1); Partial Thromboplastin Ratio 1.1; Partial Thromboplastin Time 28.8 Seconds (21.0-31.0); Prothrombin Time 10.9 Seconds (9.0-12.0)
[2021-05-08 17:55] LABS: Alanine Aminotransferase 21 U/L (12-78); Albumin Level 3.9 gm/dl (3.4-5.0); Aspartate Aminotransferase 14 U/L (15-37); BUN Creatinine Ratio 16.4 (10-20); Blood Urea Nitrogen 15 mg/dl (7-18); Calcium 8.8 mg/dl (8.5-10.1); Carbon Dioxide 24 mmol/L (21-32); Chloride 113 mmol/L (98-107); Creatinine Clr Calc Pharmacy 103.5 ml/min; Est GFR (African American) 89.1 ml/min; Est GFR (Non-African American) 76.9 ml/min; Glucose 84 mg/dl (70-99); Potassium 3.8 mmol/L (3.5-5.1); Sodium 142 mmol/L (136-145)
[2021-05-08 18:00] LABS: Albumin Globulin Ratio 1.1 (0.9-2); Alkaline Phosphatase 58 U/L (45-117); Bilirubin,Total 0.4 mg/dl (0.2-1); Globulin 3.5 gm/dl (2.5-4.0); Total Protein 7.4 gm/dl (6.4-8.2); Troponin I < 0.015 ng/ml (0-0.045)
[2021-05-08] MEDS ORDERED: OPTIRAY 320 125ml IV ONE (18:49)
[2021-05-08] MEDS: SODIUM CHLORIDE 0.9% 500 ML IV SCH (19:04)
--- NOTE | 2021-05-08 19:11 | CT Scan Report ---
CT OF THE HEAD WITHOUT CONTRAST CLINICAL HISTORY: Headache. Hypertension. Blurred vision. COMPARISON STUDY: MRI of the brain October 06, 2020. Head CT March 21, 2021. TECHNIQUE: Helical axial images of the head were obtained without IV contrast. Automated exposure con trol was utilized for the study. A dose lowering technique was utilized adhering to the principles o f ALARA. FINDINGS: No acute intracranial hemorrhage, midline shift or mass effect is present. The ventricular system is unremarkable. The basal cisterns are patent. No extra-axial collections are present. There are no findings to suggest acute dural sinus thrombosis or acute territorial infarct. No significant calvarial abnormalities are present. 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 This is benign. IMPRESSION: No acute intracranial findings. ACT 112: Negative or not required by law. Electronically signed by: Olegario Anderson M.D. 05/08/2021 7:10 PM
[2021-05-08] MEDS ORDERED: LABETALOL HCL IV 5 MG/ML 20ML IV STA ×2 (19:20→20:13)
[2021-05-08] MEDS ORDERED: ACETAMINOPHEN 1,000 MG/100 ML VIAL IV STA (19:20)
--- NOTE | 2021-05-08 19:26 | CT Scan Report ---
CT ANGIOGRAPHY OF THE CHEST, PULMONARY EMBOLUS PROTOCOL CLINICAL HISTORY: Atypical chest pain. COMPARISON STUDY: Chest CT June 27, 2020. Chest radiograph performed earlier today. TECHNIQUE: Following IV administration of Optiray, helical axial images of the chest were obtained ut ilizing the pulmonary embolus protocol. Maximal intensity projections and sagittal and coronal refor mats were viewed on an independent 3D workstation. IV contrast was administered without complication . Automated exposure control was utilized for the study. A dose lowering technique was utilized adh ering to the principles of ALARA. Repeat injection was performed due to motion artifact on initial st udy. CT DOSE: 2381.07 mGy.cm FINDINGS: Left subclavian Flfmfd-x-Pyoc is in place. There is no pulmonary embolus although this exa m is mildly compromised by respiratory motion. No thoracic aortic dissection is noted. Borderline car diomegaly is noted. There is no pericardial effusion. No enlarged axillary, mediastinal or hilar lymp h nodes are present. Lungs are suboptimally assessed due to respiratory motion but there is no consol idation to suggest pneumonia. Central airways are patent. Note is made of a 1.9 cm irregular density within the upper outer quadrant of the right breast on axial image 173 of 291. Gallbladder surgically absent. IMPRESSION: 1. No pulmonary emboli identified although exam mildly compromised by respiratory motion. 2. 1.9 cm irregular density within the upper outer quadrant of the right breast. This probably reflec ts fibroglandular tissue however a breast mass cannot be excluded. Mammogram and ultrasound are recom mended. 3. No acute process within the chest. ACT 112: Positive. There are findings on this exam that require communication between the performing entity and the patient following Patient Test Result Information Act ([place] Act 112) guidelines. Electronically signed by: Olegario Anderson M.D. 05/08/2021 7:25 PM
[2021-05-08] MEDS ORDERED: LORazepam 0.5 MG/1 ML VIAL IV STA (20:12)
[2021-05-08] MEDS ORDERED: fentaNYL citrate 100 MCG/2 ML VIAL IV STA (20:13)
[2021-05-08 20:16] LABS: Pregnancy Test, Serum Negative (Negative)
--- NOTE | 2021-05-08 21:24 | History & Physical Report ---
Date of Service May 08, 2021 Assessment & Plan (1) Altered mental status: Plan: 40 y/o F w/ PMHx of CVA, anxiety/depression, tension headache, lupus nephritis, and multiple prior admissions for HTN urgency/emergency who presents w/ HTN urgency, headache, and chest pain. She developed acute AMS at 9:30PM s/p 50 mcg fentanyl and 0.5mg Ativan. AMS has improved/resolved at 1AM. Prior to the AMS resolution, considered HTN encephalopathy, medications, anxiety, psychosis (much lower suspicion). - check UDS (r/o stimulants). - patient followed by [facility] nephro, defer inpatient workup of aldosterone and other resistant HTN workup - check mg - trend trop - considered 1:1 sitter because removing equipment w/ AMS; since resolved - hold home sedating medications, i.e. gabapentin and baclofen - requiring 2L O2, likely 2/2 sedation from medication - avoid narcotics/benzos x 24 hours - continue/restart PO home antihypertensives in AM. Coreg 25mg now. - labetalol 10 mg IV q6h PRN for systolic >200 (2) Hypertensive urgency: Plan: No end-organ involvement. Lower suspicion for hypertensive encephalopathy. - neg trop x1, trend - ecg w/o ischemic changes - regimen as above - follow CMP (3) Chest pain: Plan: Lower risk given age. ECG reassuring - trend trop (4) Headache: Plan: Left sided headache - consistent w/ chronic tension MORRIS, unilateral, some neck involvement - avoid sedation medications - IV toradol 15 x1 (5) Abdominal pain: Plan: - chronic, stable - mild TTP on exam - may have element of constipation - Miralax qAM (6) Hypothyroid: Plan: - continue home regimen (7) Depression: Plan: - continue home Effexor (8) Fibromyalgia: Plan: - hold home gabapentin because of sedating properties Plan: FEN/GI: HH, low Na, easy to chew. No IV fluids. code: full ppx: Lovenox dispo: med/tele History of Present Illness Chief Complaint: high blood pressure Primary Care Provider: DO Michael Ramirezguera Rader is a 40 y/o F w/ PMHx of chronic GI motility problems, PMHx of CVA, PE, anxiety/depression, fibromyalgia, tension headache, poorly controlled HTN, lupus nephritis who presents w/ sharp left chest pains, headache x approximately 4 days. She has a left sided headache that starts at the back of the neck. The sharp chest pains radiate to L shoulder and wrap around to her back. Upon further questioning, patient mentions that she has had difficulty focusing x 1 month. She denies any drug use other than medical marijuana. No stimulants and no tobacco/etoh. History was very limited at the time of my interview ~9:30pm because patient had altered mental status. I obtained some collateral history from patient's primary contact. He states that patient has had similar HTN and AMS ED visits in past. He had texted the patient earlier today and she did not seem confused via text. ED course: labetalol 10 IV x2. Fentanyl 50 IV. lorazepam 0.5 mgx1. Allergies Allergy/AdvReac Type Severity Reaction Status Date / Time Sulfa (Sulfonamide Allergy Intermediate LUPUS Verified 05/08/21 17:21 Antibiotics) FLARE UP dexamethasone Allergy Unknown HIVES Verified 05/08/21 17:21 duloxetine Allergy Unknown UNKNOWN Verified 05/08/21 17:21 escitalopram Allergy Unknown UNKNOWN Verified 05/08/21 17:21 latex Allergy Unknown HIVES Verified 05/08/21 17:21 morphine Allergy Unknown local Verified 05/08/21 17:21 reaction at site pregabalin Allergy Unknown UNKNOWN Verified 05/08/21 17:21 Home Medications Medication Instructions Recorded Confirmed Type levothyroxine 25 mcg tablet 25 mcg PO QAM 07/10/19 05/08/21 History pantoprazole 40 mg tablet,delayed 40 mg PO BID 30 Days #60 tab 08/15/20 05/08/21 Rx release baclofen 20 mg tablet 20 mg PO TID PRN #20 tab 08/30/20 05/08/21 Rx gabapentin 300 mg capsule 900 mg PO TID #30 cap 08/30/20 05/08/21 Rx amlodipine 10 mg tablet 10 mg PO QAM 10/12/20 05/08/21 History carvedilol 25 mg tablet 25 mg PO BID 04/17/21 05/08/21 History furosemide 20 mg tablet 20 mg PO DAILY #30 tab 04/17/21 05/08/21 Rx linaclotide 290 mcg capsule 290 mcg PO QAM 04/17/21 05/08/21 History (Linzess) losartan 100 mg tablet 100 mg PO DAILY 04/17/21 05/08/21 History lubiprostone 24 mcg capsule 24 mcg PO BID 05/08/21 05/08/21 History (Amitiza) ondansetron HCl 4 mg tablet 4 mg PO DAILY PRN 05/08/21 05/08/21 History venlafaxine 100 mg tablet 200 mg PO DAILY 05/08/21 05/08/21 History Past Med/Surg History Medical History Anxiety Chronic pain syndrome Depression Fibromyalgia Gastritis Gastroparesis History of kidney infection History of lupus anticoagulant disorder History of migraine History of multiple miscarriages History of ovarian cyst History of umbilical hernia Hypertension Hypothyroidism Intractable epigastric abdominal pain Lupus (04/04/14) Lupus nephritis Osteoarthritis Peptic ulcer disease Pleuritis (09/17/14) history of Poorly-controlled hypertension Post traumatic stress disorder Pulmonary embolism history of Surgical History H/O: hysterectomy History of tonsillectomy and adenoidectomy Hx of appendectomy Hx of cholecystectomy Port-A-Cath in place (08/29/20) Mediport Placement, Left Subclavian Vein Dr. Garcia 08/29/2020 Family History Sister SLE (systemic lupus erythematosus) Family/Other SLE (systemic lupus erythematosus) maternal side Social History Smoking Status: Former smoker Tobacco Type: Cigarettes Age Started Using Tobacco: 23; Age Quit Using Tobacco: 39; Second Hand Exposure: No; Hx Alcohol Use: No Hx Substance Use: No Preferred Language: Bangladeshi Communication Ability: Effective Contact Lens Curve Grinder Required: No Beliefs That Will Affect Care: None marital status: Single Current Living Situation: Spouse Current Living Situation Comment: fiance in [place] current occupational status: employed 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 Partial ROS obtained, see HPI.) Denies fever/chills, SOB, + nausea, vomiting, chronic. + constipation + several days of slightly cracked voice Denies numbness/tingling. + headache. Denies blurry vision At 1AM reexam, patient denies other ROS complaints aside from MORRIS, chest pain, and abd discomfort. Physical Exam Physical Exam: Vitals reviewed: Systolic BP up to 210s at admission. 165/124 most recent. Transient desat and 2L O2 requirement since resolved. Exam at 9:30 PM 05/08/21. General: A&Ox3, but not to context (she thought she was here status post c section). NAD. Mentation appears altered. HEENT: Atraumatic, normocephalic. PERRL. Pulm: CTAB. -wheezes, -rales, -rhonchi. No respiratory distress. Cardiac: Tachycardic rate. No murmurs, rubs, or gallops. Abdominal: Mild lower abd ttp, no rebound or guarding. Psych: +flight of ideas, she jumped from topic to topic. She would also stare silently. At 1 AM 05/09/21, patient is A&Ox4. Altered mentation has resolved. Conversing appropriately. Results & Data Results & Data ([facility]) Vital Signs (Past 12 Hours) Vital Signs Temp Pulse Pulse Resp BP BP Pulse Ox 05/08/21 19:56 80 25 H 185/122 H 95 05/08/21 19:30 96 H 44 H 188/135 H 97 05/08/21 19:15 99 H 24 202/138 H 96 05/08/21 19:00 104 H 37 H 184/137 H 98 05/08/21 18:50 105 H 18 97 05/08/21 18:47 98 H 24 05/08/21 18:20 100 H 20 05/08/21 18:10 92 H 32 H 96 05/08/21 18:01 98 H 32 H 97 05/08/21 17:32 107 H 22 98 05/08/21 17:30 107 H 24 212/141 H 98 05/08/21 17:05 91 H 24 213/128 H 98 05/08/21 16:25 36.5 C 94 H 16 219/121 H 96 Laboratory Results cbc, coags wnl. cmp acceptable. 05/08/21 17:29 05/08/21 17:29 Diagnostic Findings Chest X-Ray 05/08/21 17:14 XR chest 1V portable CLINICAL HISTORY: Chest Pain COMPARISON STUDY: Chest radiograph March 21, 2021. FINDINGS: Lung volumes are normal. Lungs are clear. There is no pneumothorax or pleural effusion. Cardiac size is normal. Mediastinal contours are normal. There is no evidence for pulmonary edema. Left subclavian Qithxw-o-Cqhg is in place. IMPRESSION: No acute cardiopulmonary findings. ACT 112: Negative or not required by law. Electronically signed by: Olegario Anderson M.D. 05/08/2021 5:43 PM Chest CTA 05/08/21 17:36 CT ANGIOGRAPHY OF THE CHEST, PULMONARY EMBOLUS PROTOCOL CLINICAL HISTORY: Atypical chest pain. COMPARISON STUDY: Chest CT June 27, 2020. Chest radiograph performed earlier today. TECHNIQUE: Following IV administration of Optiray, helical axial images of the chest were obtained utilizing the pulmonary embolus protocol. Maximal intensity projections and sagittal and coronal reformats were viewed on an independent 3D workstation. IV contrast was administered without complication. Automated exposure control was utilized for the study. A dose lowering technique was utilized adhering to the principles of ALARA. Repeat injection was performed due to motion artifact on initial study. CT DOSE: 2381.07 mGy.cm FINDINGS: Left subclavian Saegpq-i-Rrxi is in place. There is no pulmonary embolus although this exam is mildly compromised by respiratory motion. No thoracic aortic dissection is noted. Borderline cardiomegaly is noted. There is no pericardial effusion. No enlarged axillary, mediastinal or hilar lymph nodes are present. Lungs are suboptimally assessed due to respiratory motion but there is no consolidation to suggest pneumonia. Central airways are patent. Note is made of a 1.9 cm irregular density within the upper outer quadrant of the right breast on axial image 173 of 291. Gallbladder surgically absent. IMPRESSION: 1. No pulmonary emboli identified although exam mildly compromised by respiratory motion. 2. 1.9 cm irregular density within the upper outer quadrant of the right breast. This probably reflects fibroglandular tissue however a breast mass cannot be ex cluded. Mammogram and ultrasound are recommended. 3. No acute process within the chest. ACT 112: Positive. There are findings on this exam that require communication between the performing entity and the patient following Patient Test Result Information Act ([place] Act 112) guidelines. Electronically signed by: Olegario Anderson M.D. 05/08/2021 7:[address] 05/08/21 17:36 CT OF THE HEAD WITHOUT CONTRAST CLINICAL HISTORY: Headache. Hypertension. Blurred vision. COMPARISON STUDY: MRI of the brain October 06, 2020. Head CT March 21, 2021. TECHNIQUE: Helical axial images of the head were obtained without IV contrast. Automated exposure control was utilized for the study. A dose lowering technique was utilized adhering to the principles of ALARA. FINDINGS: No acute intracranial hemorrhage, midline shift or mass effect is present. The ventricular system is unremarkable. The basal cisterns are patent. No extra-axial collections are present. There are no findings to suggest acute dural sinus thrombosis or acute territorial infarct. No significant calvarial abnormalities are present. 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 This is benign. IMPRESSION: No acute intracranial findings. ACT 112: Negative or not required by law. Electronically signed by: Olegario Anderson M.D. 05/08/2021 7:10 PM Code Status & VTE Plan Code Status full code VTE Prophylaxis Plan VTE Prophylaxis will be ordered: Yes Supervising Physician Co-Signing Physician Notes patient seen and examined, chart reviewed, case discussed with Dr. Truong and I agree with his plan AMS occurring after medication administration in ER as well as uncontrolled BP - now both resolved Initial exam - patient with delayed and inappropriate response to questioning - wandering around room partially clothed now resting comfortably Resident Activity Tracking Resident Involvement: Resident Care Provided Care Provided: Adult Hospital Medicine
[2021-05-09] MEDS ORDERED: carvediloL 12.5 MG TAB PO STA (00:03)
[2021-05-09] MEDS ORDERED: KETOROLAC TROMETHAMINE 15 MG/ML VIAL IV STA (01:09)
[2021-05-09] MEDS: SODIUM CHLORIDE 0.9% 500 ML IV SCH (01:39)
[2021-05-09] MEDS ORDERED: LABETALOL HCL IV 5 MG/ML 20ML IV PRN (02:20)
[2021-05-09] MEDS ORDERED: ONDANSETRON INJ 2 MG/ML 2 ML VIAL IV ONE (03:48)
[2021-05-09] MEDS ORDERED: ACETAMINOPHEN 325 MG TAB PO PRN (04:00)
[2021-05-09 05:39] LABS: Basophils # (auto) 0.02 K/uL (0-0.2); Basophils % (auto) 0.3 %; Eosinophils # (auto) 0.06 K/uL (0-0.5); Eosinophils % (auto) 0.8 %; Hematocrit (blood only) 40.8 % (37-47); Hemoglobin 14.3 g/dL (12.0-16.0); Immature Granulocytes # (auto) 0.02 K/uL (0.00-0.02); Immature Granulocytes % (auto) 0.3 %; Lymphocytes # (auto) 2.13 K/uL (1.2-3.4); Lymphocytes % (auto) 27.7 %; Mean Corpuscular Hemoglobin 31.8 pg (25-34); Mean Corpuscular Volume 90.7 fL (80-100); Mean Platelet Volume 10.7 fL (7.4-10.4); Monocytes # (auto) 0.41 K/uL (0.11-0.59); Monocytes % (auto) 5.3 %; Neutrophils # (auto) 5.04 K/uL (1.4-6.5); Neutrophils % (auto) 65.6 %; Platelet Count 246 K/uL (130-400); RDW Coefficient of Variation 12.6 % (11.5-14.5); RDW Standard Deviation 41.4 fL (36.4-46.3); White Blood Count 7.68 K/uL (4.8-10.8)
[2021-05-09 05:54] LABS: Albumin Level 3.7 gm/dl (3.4-5.0); BUN Creatinine Ratio 17.3 (10-20); Calcium 8.1 mg/dl (8.5-10.1); Creatinine Clr Calc Pharmacy 114.6 ml/min; Est GFR (African American) 100.8 ml/min; Est GFR (Non-African American) 86.9 ml/min; Magnesium 1.9 mg/dl (1.8-2.4); Potassium 3.6 mmol/L (3.5-5.1)
--- NOTE | 2021-05-09 06:23 | Billing Data ---
Date of Service May 09, 2021 Coding Level of Care Code INT OBSERVATION CARE 50M LVL 2
[2021-05-09 06:26] LABS: Albumin Globulin Ratio 1.2 (0.9-2); Bilirubin,Total 0.5 mg/dl (0.2-1); Globulin 3.2 gm/dl (2.5-4.0); Total Protein 6.9 gm/dl (6.4-8.2); Troponin I 0.477 ng/ml (0-0.045)
[2021-05-09] MEDS: FUROSEMIDE 20 MG TAB PO SCH (09:04)
[2021-05-09] MEDS: POLYETHYLENE (MIRALAX) 17 GM PACK PO SCH (09:04)
[2021-05-09] MEDS: ENOXAPARIN INJ 40 MG/0.4 ML SYR SQ SCH (09:04)
[2021-05-09] MEDS: LOSARTAN POTASSIUM 50 MG TAB PO SCH (09:04)
[2021-05-09] MEDS: carvediloL 25 MG TAB PO SCH ×2 (09:04→22:04)
[2021-05-09] MEDS: VENLAFAXINE HCL 50 MG TAB PO SCH (09:04)
[2021-05-09] MEDS: amLODIPine BESYLATE 5 MG TAB PO SCH (09:05)
[2021-05-09] MEDS: LEVOTHYROXINE SODIUM 25 MCG TABLET PO SCH (09:05)
[2021-05-09] MEDS ORDERED: SUMAtriptan succinate 6 MG/0.5 ML VIAL SQ STA (09:50)
[2021-05-09] MEDS ORDERED: GABAPENTIN 600 MG TAB PO STA (09:58)
[2021-05-09] MEDS ORDERED: BACLOFEN 10 MG TAB PO ONE (09:59)
--- NOTE | 2021-05-09 11:22 | XCELERA ---
[id number]
--- NOTE | 2021-05-09 12:15 | Cardiology Consultation ---
Date of Consultation May 09, 2021 Assessment & Plan (1) NSTEMI (non-ST elevated myocardial infarction): 40-year-old woman with history of lupus which appears to have been quiescent recently, hypertension, no other vascular risk factors (former smoker, not diabetic, no recent lipid profile), who apparently has a long history of atypical chest pain and chronic abdominal pain, presented yesterday with alteration in mental status, chest and abdominal pain, and hypertensive urgency (peak BP 233/138 mmHg). Her initial and subsequent ECGs were benign, her troponin was initially normal but marek, quite surprisingly her echocardiogram shows a large wall motion abnormality of uncertain duration (new compared with 2014 study). The disparity between the ECG and echocardiogram findings is dramatic, perhaps because only apical tan are involved any ischemic/infarct findings are symmetric and concealed. Patient's pain has not changed in intensity overnight, her current ECG does not show ST changes, and she is hemodynamically stable with no dysrhythmias. Therefore, will not activate heart alert, but after discussion patient agrees to prompt cardiac catheterization within the next hour or so. Suspect possible Takotsubo/stress cardiomyopathy given apical wall motion distribution and lack of major vascular risk factors, however with a history of lupus she could have accelerated atherosclerosis and her lipid profile was not available (even looking back many years) and might be unfavorable. Further recommendations based on results of cardiac catheterization. She is already on a beta-sola (carvedilol) but might benefit from additional beta-blockade if she has Takotsubo/stress cardiomyopathy. If she has conventional atherosclerotic disease, aspirin and statin therapy would be initiated long-term, after any short-term revascularization (which would require additional antiplatelet agent). Regardless of findings, will check lipid profile for long-term management. (2) Hypertensive urgency: Normotensive currently. (3) History of lupus: Apparently quiescent for some time. History of Present Illness Reason for Consultation: elevated troponin Requesting Physician: Oswaldo Waters MD Attending Physician: Oswaldo Waters History of Present Illness 40-year-old woman with lupus erythematosus (lupus nephritis 10 years ago which has been quiescent), uncontrolled hypertension, chronic abdominal pain (gastric inflammation/ulcerations on 2019 EGD), and other medical problems who was admitted yesterday (05/08/2021) with altered mental status and hypertensive urgency as well as sharp left sternal chest pain radiating to her left shoulder and back. ECGs on admission and today both show sinus rhythm with isoelectric ST segments and are unremarkable. Troponin was normal yesterday but marek to 0.477 today, prompting an echocardiogram which showed mild to moderately reduced systolic function (EF 40-45%) and a large anteroapical area of akinesis (new compared to 2014 echocardiogram). At the time of my evaluation this morning, she was resting quietly but noted that she had 8/10 chest pain which was unchanged since yesterday. Onset of pain was 3 days ago, the pain has been waxing and waning since then but never completely resolved. She notes associated diaphoresis but no palpitations, presyncope, or syncope. She is normotensive, not tachycardic, and has had no dysrhythmias. Allergies Allergy/AdvReac Type Severity Reaction Status Date / Time Sulfa (Sulfonamide Allergy Intermediate LUPUS Verified 05/08/21 17:21 Antibiotics) FLARE UP dexamethasone Allergy Unknown HIVES Verified 05/08/21 17:21 duloxetine Allergy Unknown UNKNOWN Verified 05/08/21 17:21 escitalopram Allergy Unknown UNKNOWN Verified 05/08/21 17:21 latex Allergy Unknown HIVES Verified 05/08/21 17:21 morphine Allergy Unknown local Verified 05/08/21 17:21 reaction at site pregabalin Allergy Unknown UNKNOWN Verified 05/08/21 17:21 Home Medications Medication Instructions Recorded Confirmed Type levothyroxine 25 mcg tablet 25 mcg PO QAM 07/10/19 05/08/21 History pantoprazole 40 mg tablet,delayed 40 mg PO BID 30 Days #60 tab 08/15/20 05/08/21 Rx release baclofen 20 mg tablet 20 mg PO TID PRN #20 tab 08/30/20 05/08/21 Rx gabapentin 300 mg capsule 900 mg PO TID #30 cap 08/30/20 05/08/21 Rx amlodipine 10 mg tablet 10 mg PO QAM 10/12/20 05/08/21 History carvedilol 25 mg tablet 25 mg PO BID 04/17/21 05/08/21 History furosemide 20 mg tablet 20 mg PO DAILY #30 tab 04/17/21 05/08/21 Rx linaclotide 290 mcg capsule 290 mcg PO QAM 04/17/21 05/08/21 History (Linzess) losartan 100 mg tablet 100 mg PO DAILY 04/17/21 05/08/21 History lubiprostone 24 mcg capsule 24 mcg PO BID 05/08/21 05/08/21 History (Amitiza) ondansetron HCl 4 mg tablet 4 mg PO DAILY PRN 05/08/21 05/08/21 History venlafaxine 100 mg tablet 200 mg PO DAILY 05/08/21 05/08/21 History Patient History Medical History Anxiety Chronic pain syndrome Depression Fibromyalgia Gastritis Gastroparesis History of kidney infection History of lupus anticoagulant disorder History of migraine History of multiple miscarriages History of ovarian cyst History of umbilical hernia Hypertension Hypothyroidism Intractable epigastric abdominal pain Lupus (04/04/14) Lupus nephritis Osteoarthritis Peptic ulcer disease Pleuritis (09/17/14) history of Poorly-controlled hypertension Post traumatic stress disorder Pulmonary embolism history of Surgical History H/O: hysterectomy History of tonsillectomy and adenoidectomy Hx of appendectomy Hx of cholecystectomy Port-A-Cath in place (08/29/20) Mediport Placement, Left Subclavian Vein Dr. Garcia 08/29/2020 Family History Sister SLE (systemic lupus erythematosus) Family/Other SLE (systemic lupus erythematosus) maternal side Social History Smoking Status: Former smoker Tobacco Type: Cigarettes Age Started Using Tobacco: 23; Age Quit Using Tobacco: 39; Second Hand Exposure: No; Hx Alcohol Use: No Hx Substance Use: No Preferred Language: Jordanian Communication Ability: Effective Resource Recovery Specialist Required: No Beliefs That Will Affect Care: None marital status: Single Current Living Situation: Spouse Current Living Situation Comment: fisully in [place] current occupational status: employed 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 Afebrile. Normotensive. Pulse 76 bpm and regular. Skin: no ecchymoses or generalized lesions. HEENT: unremarkable. Neck: no JVD or carotid bruits. Lungs: clear bilaterally. Chest wall: Left pectoral region access port, appears benign. Cardiac: regular rhythm, no murmur or gallop. Abdomen: benign. Extremities: no edema, pulses intact. Neurologic: normal affect and conversation currently, nonfocal. Results & Data ([facility]) Laboratory Results Initial troponin negative, today marek to 0.477. Normal coagulation studies Normal CBC Normal electrolytes, BUN 15, creatinine 0.84. Diagnostic Findings ECGs yesterday and today were unremarkable and showed sinus rhythm with isoelectric ST segments. Echocardiogram today showed EF 40 to 45% with a large area of akinesis involving the entire apex in the mid anterior/anteroseptal/septal tan. Mild LVH with mild mitral regurgitation borderline left atrial dilatation, no pericardial effusion. IVC mildly dilated. Chest x-ray yesterday unremarkable. Chest CT yesterday with no pulmonary emboli and no acute process identified. Head CT yesterday unremarkable. PG Care Time/CCT Total # of Minutes Spent Total Time Spent with Patient: Total time spent is greater than 50% in coordination of care (as documented) at patient's floor/unit and/or counseling patient: Coding Level of Care Code 05583 Inpt Consult Level 4 Diagnoses NSTEMI (non-ST elevated myocardial infarction) I21.4 Hypertensive urgency I16.0 History of lupus Z87.39
[2021-05-09] MEDS ORDERED: fentaNYL citrate 100 MCG/2 ML VIAL ONE (12:36)
[2021-05-09] MEDS ORDERED: niCARdipine HCL INJ 2.5 MG/ML 10 ML AMP ONE (12:36)
[2021-05-09] MEDS ORDERED: NITROGLYCERIN/D5W 100MCG/ML 20ML SYR ONE (12:36)
[2021-05-09] MEDS ORDERED: HEPARIN (PORCINE) 1000 UNIT/ML 10 ML (CATH LAB USE ONLY) ONE (12:36)
[2021-05-09] MEDS ORDERED: MIDAZOLAM HCL 1 MG/ML 2ML VIAL ONE (12:36)
--- NOTE | 2021-05-09 12:46 | Pre Anesthesia Assessment ---
Date of Service May 09, 2021 Pre Sedation Assessment Vital Signs Temp Pulse Pulse Resp BP BP Pulse Ox 05/09/21 12:15 76 112/73 96 05/09/21 08:00 80 20 146/76 H 95 05/09/21 06:30 68 22 131/92 05/09/21 06:20 65 19 05/09/21 06:10 67 23 05/09/21 06:00 79 23 05/09/21 05:50 70 22 05/09/21 05:40 69 24 05/09/21 05:30 73 22 05/09/21 05:20 66 23 05/09/21 05:00 65 23 134/99 96 05/09/21 04:45 66 12 138/102 H 97 05/09/21 04:30 67 21 146/110 H 97 05/09/21 04:16 75 28 H 141/98 H 96 05/09/21 04:00 73 27 H 149/109 H 94 05/09/21 03:53 78 22 163/116 H 97 05/09/21 03:45 77 17 134/99 96 05/09/21 03:30 71 27 H 137/99 95 05/09/21 03:15 75 24 143/98 H 95 05/09/21 03:00 79 29 H 148/102 H 96 05/09/21 02:45 77 23 140/106 H 96 05/09/21 02:30 82 11 L 138/100 98 05/09/21 02:15 22 154/110 H 96 05/09/21 02:00 79 28 H 161/113 H 95 05/09/21 01:45 81 29 H 144/112 H 95 05/09/21 01:30 20 154/121 H 97 05/09/21 01:15 30 H 159/117 H 96 05/09/21 01:00 28 H 163/129 H 96 05/09/21 00:45 19 159/109 H 96 05/09/21 00:30 32 H 151/110 H 93 05/09/21 00:15 28 H 165/111 H 05/09/21 00:05 22 94 05/08/21 23:30 26 H 172/123 H 05/08/21 23:15 27 H 184/123 H 90 05/08/21 23:02 89 L 05/08/21 22:50 91 05/08/21 22:47 93 05/08/21 22:30 188/133 H 92 05/08/21 21:50 96 H 24 168/122 H 94 05/08/21 21:47 95 05/08/21 21:00 80 21 165/124 H 91 05/08/21 20:50 80 38 H 165/120 H 88 L 05/08/21 20:45 88 L 05/08/21 20:15 88 24 175/125 H 91 05/08/21 19:56 80 25 H 185/122 H 95 05/08/21 19:30 96 H 44 H 188/135 H 97 05/08/21 19:15 99 H 24 202/138 H 96 05/08/21 19:00 104 H 37 H 184/137 H 98 05/08/21 18:50 105 H 18 97 05/08/21 18:47 98 H 24 05/08/21 18:20 100 H 20 05/08/21 18:10 92 H 32 H 96 05/08/21 18:01 98 H 32 H 97 05/08/21 17:32 107 H 22 98 05/08/21 17:30 107 H 24 212/141 H 98 05/08/21 17:05 91 H 24 213/128 H 98 05/08/21 16:25 36.5 C 94 H 16 219/121 H 96 Cardiovascular + regular rate Respiratory + respiratory effort normal Pre-Sedation Airway Assessment Smoking Status: Former smoker Hx Sleep Apnea: No Hx Difficult Intubation: No Short, Thick Neck: No Thyromental Distance: > or= 3.5 Finger Breadths Oral Cavity: + WNL Mallampati Class: III ASA: ASA3 NPO Status Date of Last Intake of Fluids: 05/09/21 Time of Last Intake of Fluids: 07:00 Date of Last Intake of Solid Food: 05/09/21 Time of Last Intake of Solid Foods: 07:00 Procedure Planning Contraindications for Sedation: none Current Medications Reviewed: Yes Notes The planned sedation has been discussed with the patient. Informed Consent was obtained. I have identified the patient, determined the appropriateness of sedation and have assessed the patient immediately prior to the procedure. All medicine(s) and interventions are by my order.
--- NOTE | 2021-05-09 12:50 | Electrocardiogram Report ---
Test Reason : Blood Pressure : / mmHG Vent. Rate : 086 BPM Atrial Rate : 086 BPM P-R Int : 158 ms QRS Dur : 090 ms QT Int : 388 ms P-R-T Axes : 058 028 057 degrees QTc Int : 464 ms Normal sinus rhythm Normal ECG When compared with ECG of 21-MAR-2021 12:58, No significant change was found Confirmed by Dontae Sauceda ([id number]) on 05/09/2021 12:50:35 PM Referred By: REFERRED SELF Confirmed By:Dontae Sauceda
--- NOTE | 2021-05-09 13:05 | Electrocardiogram Report ---
Test Reason : Blood Pressure : / mmHG Vent. Rate : 071 BPM Atrial Rate : 071 BPM P-R Int : 166 ms QRS Dur : 090 ms QT Int : 446 ms P-R-T Axes : 043 028 078 degrees QTc Int : 484 ms Normal sinus rhythm Prolonged QT Abnormal ECG When compared with ECG of 08-MAY-2021 16:38, QT has lengthened Otherwise no significant change Confirmed by Dontae Sauceda ([id number]) on 05/09/2021 1:04:41 PM Referred By: REFERRED SELF Confirmed By:Dontae Sauceda
--- NOTE | 2021-05-09 13:15 | Post Anesthesia Assessment ---
Date of Service May 09, 2021 Post Sedation Assessment Vital Signs Temp Pulse Pulse Resp BP BP Pulse Ox 05/09/21 12:15 76 112/73 96 05/09/21 08:00 80 20 146/76 H 95 05/09/21 06:30 68 22 131/92 05/09/21 06:20 65 19 05/09/21 06:10 67 23 05/09/21 06:00 79 23 05/09/21 05:50 70 22 05/09/21 05:40 69 24 05/09/21 05:30 73 22 05/09/21 05:20 66 23 05/09/21 05:00 65 23 134/99 96 05/09/21 04:45 66 12 138/102 H 97 05/09/21 04:30 67 21 146/110 H 97 05/09/21 04:16 75 28 H 141/98 H 96 05/09/21 04:00 73 27 H 149/109 H 94 05/09/21 03:53 78 22 163/116 H 97 05/09/21 03:45 77 17 134/99 96 05/09/21 03:30 71 27 H 137/99 95 05/09/21 03:15 75 24 143/98 H 95 05/09/21 03:00 79 29 H 148/102 H 96 05/09/21 02:45 77 23 140/106 H 96 05/09/21 02:30 82 11 L 138/100 98 05/09/21 02:15 22 154/110 H 96 05/09/21 02:00 79 28 H 161/113 H 95 05/09/21 01:45 81 29 H 144/112 H 95 05/09/21 01:30 20 154/121 H 97 05/09/21 01:15 30 H 159/117 H 96 05/09/21 01:00 28 H 163/129 H 96 05/09/21 00:45 19 159/109 H 96 05/09/21 00:30 32 H 151/110 H 93 05/09/21 00:15 28 H 165/111 H 05/09/21 00:05 22 94 05/08/21 23:30 26 H 172/123 H 05/08/21 23:15 27 H 184/123 H 90 05/08/21 23:02 89 L 09/22/21 22:50 91 05/08/21 22:47 93 05/08/21 22:30 188/133 H 92 05/08/21 21:50 96 H 24 168/122 H 94 05/08/21 21:47 95 05/08/21 21:00 80 21 165/124 H 91 05/08/21 20:50 80 38 H 165/120 H 88 L 05/08/21 20:45 88 L 05/08/21 20:15 88 24 175/125 H 91 05/08/21 19:56 80 25 H 185/122 H 95 05/08/21 19:30 96 H 44 H 188/135 H 97 05/08/21 19:15 99 H 24 202/138 H 96 05/08/21 19:00 104 H 37 H 184/137 H 98 05/08/21 18:50 105 H 18 97 05/08/21 18:47 98 H 24 05/08/21 18:20 100 H 20 05/08/21 18:10 92 H 32 H 96 05/08/21 18:01 98 H 32 H 97 05/08/21 17:32 107 H 22 98 05/08/21 17:30 107 H 24 212/141 H 98 05/08/21 17:05 91 H 24 213/128 H 98 05/08/21 16:25 36.5 C 94 H 16 219/121 H 96 Recovery Score Activity: Moves 4 extremities Respiration: Deep Breath/Cough Circulation: +/-20% PreAnes Value Consciousness: Fully Awake Oxygen Saturation: > 92% On Room Air Discharge Sedation Level of Care: Fast Track Phase II Post Sedation Plan On clinical assessment, the patient appears to have tolerated the sedation without complications. Patient is recovering as anticipated. Patient will continue to be monitored by nursing and may be discharged when sedation discharge criteria are met per below protocol. Upon Completions of procedure up to 15 minutes continue every 5 minute vital signs and the P.A.R. score; then discharge to a Phase I or Fast Track to Phase II per the following guidelines: * Discharge Patient to appropriate Phase II area if PAR is 8 or greater or return to pre- procedure baseline. The post - procedure orders will be as directed. * If PAR score is less than 8 or not return to pre-procedure baseline then patient will follow Phase I monitoring till PAR is reached for Phase II. The Phase I may be done in procedure room or may call to secure a Phase I area. * If naloxone or flumazenil are used for reversal, hold in Phase I for continued monitoring from when last reversal dose was given for a minimum of 60 minutes or longer pending the nurse and/or physician discretion of patient condition before discharge to Phase II. Please call the Sedation Physician to re-evaluate and complete post-note for discharge to Phase II area. Do NOT discharge from procedure sedation or Phase 1 until post- sedation evaluation note is complete by procedure /sedation MD Sedation Discharge Instructions to be given to the patient at discharge to home.
[2021-05-09] MEDS ORDERED: BUTALBITAL/ACETAMIN/CAFFEINE TAB PO STA (13:45)
[2021-05-09] MEDS ORDERED: methylPREDNISolone 40 MG in SYRINGE 0 ML IV STA (13:51)
[2021-05-09] MEDS: BACLOFEN 20 MG TAB PO PRN ×2 (14:19→22:04)
[2021-05-09] MEDS: GABAPENTIN 300 MG CAP PO SCH ×2 (14:19→22:41)
--- NOTE | 2021-05-09 17:19 | Cardiac Catheterization ---
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 Cardiac Status Clinical evaluation leading to the procedure CAD Presenation: Non STEMI Diagnostic Physicians Name: Kd Mayers MD Closure Device Recommendations: Medical Therapy and/or Counseling Cardiac Cath Procedure Full Procedure Date May 09, 2021 Pre-Procedure Diagnosis Pre-Procedure Diagnosis: Non STEMI AUC Score AUC Score: 8 Post-Procedure Diagnosis Post-Procedure Diagnosis: Normal Coronary Arteries Procedure(s) Performed Procedure(s) Performed: Coronary Angiography and Left Heart Cath Pattern Grader Cutter Kd Mayers MD Differential Tester(s) none Estimated Blood Loss Estimated Blood Loss: 7cc Medication(s) Medication(s): Fentanyl, Lidocaine 1%, Nicardipine, Nitroglycerin and Versed Summary of Findings Procedure performed: Left heart catheterization, selective coronary angiography Staff manager registration: Kd Mayers MD Indication: The patient is a 40-year-old woman who presented to the emergency room with symptoms of chest discomfort, elevated cardiac biomarkers and regional wall motion abnormalities on echocardiogram. Procedure in detail The patient was informed of the risk benefits and alternatives to the intended procedure. She understood and wished to proceed. She was taken to the cardiac catheterization suite in a fasting state. Conscious sedation was administered per protocol and the patient was monitored electrocardiographically throughout today's procedure. The right radial area was prepped and draped in usual sterile fashion. This area was anesthetized using subcutaneous ministration of a lidocaine solution. The right radial artery was accessed using Seldinger technique and a sheath was placed over guidewire at the site. The sheath was used to facilitate passage of the cardiac catheters for selective coronary angiography and left heart catheterization. Images were obtained in multiple orthogonal views prior to removal of the catheters and sheath. Hemostasis was achieved at the access site using manual pressure. The patient tolerated procedure well. There were no immediate complications. Equipment used: 5 [place] 4 5 [place] 3 DRC Findings Coronary angiography Left main: Left main coronary is normal in size and caliber and bifurcated normally into left anterior descending and left circumflex vessels. No disease in this vessel. Left anterior descending colon left anterior descending was large transapical vessel. It appeared used several fairly small diagonal branches with D3 being the largest. There were no obstructive lesions in this vessel. Left circumflex: Left circumflex was a nondominant vessel. It produced a very large branching first OM system and a medium sized second OM system. There were no obstructive lesions in the circumflex vessel. Right coronary artery: The right coronary artery was a dominant vessel. It had an unusual ostium there was somewhat cloacal in nature. It had a tortuous posterior lateral branch and a large posterior descending artery. There was a medium sized acute marginal branch which did not fill fully but was free of obstruction. There were no obstructive lesions in the right coronary artery. 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 Any exceptions are noted below. [facility] Card Cath Procedure Codes Cardiac Catheterization Procedure 1: Cardiovascular Cath Procedures: 67852 Coronaries and LHC (+/-LV) Moderate Sedation Procedure 1: Sedation/Anesthesia: 50653 Mod Sedation by the same physician;Init15 Min Child Age 5 & Up PG Care Time/CCT Total # of Minutes Spent Total Time Spent with Patient: Total time spent is greater than 50% in coordination of care (as documented) at patient's floor/unit and/or counseling patient:
[2021-05-09 18:40] LABS: Troponin I 0.365 ng/ml (0-0.045)
--- NOTE | 2021-05-09 20:48 | Hospitalist Progress Note ---
Date of Service May 09, 2021 Assessment & Plan (1) Altered mental status: Plan: 40 y/o F w/ PMHx of CVA, anxiety/depression, tension headache, lupus nephritis, and multiple prior admissions for HTN urgency/emergency who presents w/ HTN urgency, headache, and chest pain. She developed acute AMS at 9:30PM s/p 50 mcg fentanyl and 0.5mg Ativan. AMS has improved/resolved at 1AM. Prior to the AMS resolution, considered HTN encephalopathy, medications, anxiety, psychosis (much lower suspicion). - check UDS (r/o stimulants). - patient followed by [facility] nephro, defer inpatient workup of aldosterone and other resistant HTN workup - check mg - trend trop - considered 1:1 sitter because removing equipment w/ AMS; since resolved - hold home sedating medications, i.e. gabapentin and baclofen - requiring 2L O2, likely 2/2 sedation from medication - avoid narcotics/benzos x 24 hours - continue/restart PO home antihypertensives in AM. Coreg 25mg now. - labetalol 10 mg IV q6h PRN for systolic >200 (2) Hypertensive urgency: Plan: No end-organ involvement. Lower suspicion for hypertensive encephalopathy. - neg trop x1, trend - ecg w/o ischemic changes - regimen as above - follow CMP (3) Chest pain: Plan: Lower risk given age. ECG reassuring - trend trop (4) Headache: Plan: Left sided headache - consistent w/ chronic tension MORRIS, unilateral, some neck involvement - avoid sedation medications - IV toradol 15 x1 (5) Abdominal pain: Plan: - chronic, stable - mild TTP on exam - may have element of constipation - Miralax qAM (6) Hypothyroid: Plan: - continue home regimen (7) Depression: Plan: - continue home Effexor (8) Fibromyalgia: Plan: - hold home gabapentin because of sedating properties Plan: FEN/GI: HH, low Na, easy to chew. No IV fluids. code: full ppx: Lovenox dispo: med/tele Admission and Anticipated Discharge Date Admission Date: May 08, 2021 Results & Data Results & Data ([facility]) Vital Signs (Past 12 Hours) Vital Signs Temp Pulse Pulse Resp BP BP Pulse Ox 05/09/21 17:30 74 23 118/77 97 05/09/21 17:01 76 21 121/74 05/09/21 16:30 63 68 22 124/82 131/109 H 99 05/09/21 16:00 68 24 138/93 05/09/21 15:49 66 18 137/92 99 05/09/21 15:30 82 68 19 131/109 H 131/109 H 99 05/09/21 15:15 68 18 129/92 99 05/09/21 15:00 71 17 120/78 97 05/09/21 14:45 67 18 117/79 97 05/09/21 14:30 72 65 22 121/80 121/80 97 05/09/21 14:00 74 79 23 121/81 107/67 98 05/09/21 13:45 70 18 125/77 96 05/09/21 13:30 36.8 C 68 20 133/68 97 05/09/21 13:15 69 14 118/80 94 05/09/21 12:15 76 112/73 96 05/09/21 12:00 141/102 H 05/09/21 11:30 68 23 138/97 05/09/21 11:00 72 22 148/102 H 05/09/21 10:30 73 18 128/95 05/09/21 10:00 75 20 142/89 H 05/09/21 09:30 68 22 131/90 05/09/21 09:00 66 23 111/70 PG Care Time/CCT Total # of Minutes Spent Total Time Spent with Patient: Total time spent is greater than 50% in c oordination of care (as documented) at patient's floor/unit and/or counseling patient: Coding Diagnoses Altered mental status R41.82 Hypertensive urgency I16.0 Chest pain R07.9 Headache R51 Abdominal pain R10.9 Hypothyroid E03.9 Depression F32.9 Fibromyalgia M79.7
--- NOTE | 2021-05-09 21:08 | Communication Note ---
Date of Service: May 09, 2021 Saw Patient at bedside. Patient was admitted earlier this AM. Patient was complaining of chest pain and headache. The chest pain was sharp, constant, left sided and radiated to the left shoulder. Patient also complaining of a severe headache, which she attributes to her fibromyalgia. Her headache was bitemporal severe in intensity however she also complains of photophobia and prefers the lights in the room to be off. Given her history of fibromyalgia, will resume her gabapentin and baclofen as stopping them completely may be more detrimental. Tried a lower dose initially of gabapentin 600mg, patient tolerated it. Resumed regular gabapentin dose of 900 mg PO TID. As troponin was elevated, consulted cardio. Echo, trop, EKG ordered. Echo showed large area akinesis of apex. Cardiac cath was clean. Likely takotsubo cardiomyopathy. Held sumatriptan for headache due to cardiomyopathy. ordered one dose of steroid : solumedrol 40 mg. May benefit from a short taper Will likely require another dose tomorrow. Holding opiates as record recommend limiting opiates. If pain is severe overnight, may do a trial of tramadol. However near change of shift, nursing states patient appears comfortable. will hold tramadol for now. Another option could be a migraine cocktail: compazine and benadryl. Patient requested to followup with a [facility] provider tomorrow.
[2021-05-09] MEDS ORDERED: KETOROLAC TROMETHAMINE 15 MG/ML VIAL IV ONE (22:53)
[2021-05-09] MEDS ORDERED: MoRPHine SULFATE 2 MG/ML CARP IV STA (22:54)
[2021-05-09] MEDS ORDERED: diphenhydrAMINE Capsule 25 MG CAP PO ONE (22:55)
[2021-05-09] MEDS: PANTOprazole 40 MG TAB PO SCH (22:58)
[2021-05-10] MEDS ORDERED: KETOROLAC TROMETHAMINE 15 MG/ML VIAL IV ONE ×2 (04:30→09:43)
[2021-05-10] MEDS ORDERED: ONDANSETRON 4 MG OD TAB PO STA (04:46)
[2021-05-10] MEDS: LEVOTHYROXINE SODIUM 25 MCG TABLET PO SCH (06:14)
[2021-05-10] MEDS ORDERED: oxyCODONE HCL IR 5 MG TAB (IMMEDIATE RELEASE) PO STA (06:19)
[2021-05-10] MEDS: ENOXAPARIN INJ 40 MG/0.4 ML SYR SQ SCH (08:06)
[2021-05-10] MEDS: POLYETHYLENE (MIRALAX) 17 GM PACK PO SCH (08:07)
[2021-05-10] MEDS: VENLAFAXINE HCL 50 MG TAB PO SCH (08:08)
[2021-05-10] MEDS: amLODIPine BESYLATE 5 MG TAB PO SCH (08:09)
[2021-05-10] MEDS: GABAPENTIN 300 MG CAP PO SCH ×3 (08:09→20:17)
[2021-05-10] MEDS: PANTOprazole 40 MG TAB PO SCH ×2 (08:09→20:17)
[2021-05-10] MEDS: LOSARTAN POTASSIUM 50 MG TAB PO SCH (08:09)
[2021-05-10] MEDS: carvediloL 25 MG TAB PO SCH (08:09)
[2021-05-10] MEDS: FUROSEMIDE 20 MG TAB PO SCH (08:09)
[2021-05-10] MEDS ORDERED: MoRPHine SULFATE 2 MG/ML CARP IV STA (09:43)
--- NOTE | 2021-05-10 10:24 | Hospitalist Progress Note ---
Date of Service May 10, 2021 Assessment & Plan (1) Stress-induced cardiomyopathy: Plan: 40 y/o F w/ PMHx of CVA, anxiety/depression, tension headache, lupus nephritis, and multiple prior admissions for HTN urgency/emergency who presents w/ HTN urgency, headache, and chest pain. Stress-Induced Cardiomyopathy - EKG consistently normal sinus rhythm -Echocardiogram 05/09 with mild to moderately reduced LV function with EF of 40 to 45%, large area of akinesis involving the entire apex in the mid anterior/anteroseptal/septal tan -Had cath showing normal coronary arteries without obstructive lesions -Repeat echo 05/10 showing improved systolic function with EF of 55 to 60% and completely resolved wall motion abnormalities -Cardiology consulted - Absence of coronary artery disease and patient with severe but transient/reversible wall motion abnormalities is most consistent with a stress- induced cardiomyopathy (Takotsubo syndrome). - Since the mainstay of treatment for stress-induced cardiomyopathy is beta- blockade, would recommend changing from carvedilol to metoprolol 50 mg twice daily, further titrated to maintain heart rate in the 50-70 bpm range. - Consider addition of clonidine to her outpatient regimen 0.1 mg daily to be taken on a PRN basis for markedly elevated systolic blood pressure (e.g., >180 mmHg) -As per cardiology recommendations, discontinued carvedilol and started metoprolol as well as PRN clonidine -Plan to monitor overnight, if she has stable blood pressure and stable heart rate, likely can discharge tomorrow Hypertensive urgency: - No end-organ involvement - As abov EKG remained normal - Had negative troponin initially, with recheck showing elevation and downtrending thereafter -Echocardiograms and cath as above -Cardiology consulted: - Consider addition of clonidine to her outpatient regimen 0.1 mg daily to be taken on a PRN basis for markedly elevated systolic blood pressure (e.g., >180 mmHg) - Should she develop severely refractory hypertension, could also consider minoxidil. - However, this would likely aggravate any tendency to orthostasis and would require regular diuretic use as well as beta-blockade to block reflex tachycardia. -Per discussion with cardiology, will order tests as below for ruling out pheochromocytoma and renal artery stenosis as secondary causes of hypertension - Urinary catecholamines, aldosterone, renin, TSH, Renal artery ultrasound - Continue home amlodipine, furosemide, losartan -Add metoprolol as above and clonidine as needed per cardiology - follow CMP Abdominal pain: - Chronic - Follows with [facility] for concerns of gastric motility issues - Per last [facility] note, has had continual issues dealing with the chronic severe pain - Pain management provider through [facility] has recommended medical marijuana but this is proven to be too expensive for the patient -Possible that her chronic severe pain could be contributing to stress-induced cardiomyopathy -Has received as needed Toradol and morphine in hospital with good response for several hours -Ideally, would avoid opioids as much as possible. However, patient's pain has been refractory to other methods -Will require outpatient discussion for continued management of chronic pain Hypothyroid: - continue home regimen Depression: - continue home Effexor Fibromyalgia: -Continue home baclofen and gabapentin -As above, will require outpatient discussion of continued chronic pain management FEN/GI: HH, low Na, easy to chew. No IV fluids. Code: Full DVT ppx: Lovenox Dispo: med/tele (2) NSTEMI (non-ST elevated myocardial infarction): (3) Hypertensive urgency: (4) Altered mental status: (5) Abdominal pain: (6) Headache: (7) Hypothyroid: (8) Depression: (9) Fibromyalgia: Admission and Anticipated Discharge Date Admission Date: May 08, 2021 Supervising Physician Co-Signing Physician Notes Resident Physician Supervision Note: I independently interviewed and examined the patient and verified the atkins history and physical, reviewed labs and image studies and agree with resident Dr. Hummel findings and care plan. Subjective Patient seen at bedside this morning. She has required several doses of opioid medications as well as Toradol, which she feels have helped for several hours at a time. She continues to report chest pain, though it is improved from yesterday. Mostly she reports severe abdominal pain, which is a chronic issue for her. She mentions that her baseline functioning level of pain is about a 7 out of 10 and she will regularly go up to 9 or 10 out of 10, at which point she feels she gets somewhat confused and "out of it". She does mention that she was confused and "out of it" yesterday before receiving the doses of fentanyl and Ativan in the ED. She currently denies fever, chills, nausea, vomiting, shortness of breath, cough, headache. Review of Systems Review of Systems: All systems reviewed & are unremarkable except as noted in Subjective Physical Exam Physical Exam: GENERAL: A&Ox3. NAD. HEENT: PERRL, EOMI. Moist mucous membranes. CHEST/LUNGS: CTAB A/P. No crackles, wheezes, rales, rhonchi. HEART: RRR. No m/g/r. No carotid bruits. EXTREMITIES: No cyanosis, no clubbing, no edema SKIN: Warm and dry. No rashes or lesions. PSYCHIATRIC: Euthymic affect, no SI, no pressured speech, no hallucinations Results & Data Results & Data ([facility]) Vital Signs (Past 12 Hours) Vital Signs Temp Pulse Pulse Pulse Resp BP BP 05/10/21 08:35 36.6 C 56 L 19 131/84 05/10/21 05:23 36.6 C 57 L 16 112/74 05/10/21 00:28 36.8 C 72 18 103/69 05/09/21 22:36 77 05/09/21 22:30 36.6 C 68 16 130/79 Pulse Ox 05/10/21 08:35 97 05/10/21 05:23 98 05/10/21 00:28 96 05/09/21 22:36 05/09/21 22:30 95 Resident Activity Tracking Resident Involvement: Resident Care Provided Care Provided: Adult Hospital Medicine (1) Headache Headache chronicity pattern: acute headache Headache type: unspecified Intractability: intractable Qualified Code(s): R51.9 - Headache, unspecified
--- NOTE | 2021-05-10 12:04 | XCELERA ---
[id number]
[2021-05-10] MEDS ORDERED: MoRPHine SULFATE 4 MG/ML 1 ML CARP\\VIAL IV STA (12:06)
--- NOTE | 2021-05-10 14:26 | Cardiology Progress Note ---
Date of Service May 10, 2021 Assessment & Plan (1) Stress-induced cardiomyopathy: Plan: Absence of coronary artery disease and patient with severe but transient/reversible wall motion abnormalities is most consistent with a stress- induced cardiomyopathy (Takotsubo syndrome). Since she did experience the onset of significant wall motion abnormalities on carvedilol and since the mainstay of treatment for stress-induced cardiomyopathy is beta-blockade, would recommend changing from carvedilol to metoprolol 50 mg twice daily, further titrated to maintain heart rate in the 50-70 bpm range. No need for aspirin long-term since she does not have coronary artery disease and since she has episodically uncontrolled hypertension (increasing the risk of intracranial bleeding). (2) Hypertensive urgency: Plan: Would consider addition of clonidine to her outpatient regimen, she seems a favorable candidate given her anxiety/stress and the lability of her blood pressure as an inpatient (and apparently as an outpatient, she notes orthostasis fairly frequently). Initiate 0.1 mg daily to be taken on a PRN basis for markedly elevated systolic blood pressure (e.g., >180 mmHg), possibly transition ing to routine use if the medication is efficacious and she does not experience significant side effects. Should she develop severely refractory hypertension, could also consider minoxidil. However, this would likely aggravate any tendency to orthostasis and would require regular diuretic use as well as beta-blockade to block reflex tachycardia. Given her current normotensive BP, would not utilize minoxidil at this time. Will sign off, if patient's clinical status changes please contact Dr. Arteaga over the weekend. Admission and Anticipated Discharge Date Admission Date: May 08, 2021 Subjective Patient notes that she feels significantly better than yesterday, but she still notes ongoing chest discomfort. Echocardiogram today showed dramatic resolution of her wall motion abnormalities and normalization of LV systolic function. She notes significant anxiety and pain as chronic symptoms and asked about the importance of their management. She denies any dyspnea, palpitations, presyncope, or syncope. Telemetry showed sinus bradycardia while sleeping (40-70 bpm) and sinus rhythm while awake (60-70 bpm) with no dysrhythmias. Blood pressure over the past 24 hours has been normotensive to low normal. Physical Exam Physical Exam: Appears comfortable. Afebrile. Normotensive. Pulse 70 bpm and regular. Skin: no ecchymoses or generalized lesions. HEENT: unremarkable. Neck: no JVD or carotid bruits. Lungs: clear bilaterally. Chest wall: Left pectoral region access port, appears benign. Cardiac: regular rhythm, no murmur or gallop. Abdomen: benign. Extremities: no edema, pulses intact. Right radial access site benign, no hematoma. Neurologic: normal affect and conversation currently, nonfocal. PG Care Time/CCT Total # of Minutes Spent Total Time Spent with Patient: Total time spent is greater than 50% in coordination of care (as documented) at patient's floor/unit and/or counseling patient: Coding Level of Care Code 38122 Subseq Hosp Care Lvl 3 Diagnoses Stress-induced cardiomyopathy I51.81 Hypertensive urgency I16.0
[2021-05-10] MEDS ORDERED: MoRPHine SULFATE 4 MG/ML 1 ML CARP\\VIAL ONE (14:31)
[2021-05-10] MEDS ORDERED: cloNIDine HCL 0.1 MG TAB PO PRN (14:52)
[2021-05-10] MEDS ORDERED: HEPARIN 100 UNIT/ML 5ML FLUSH FLUSH PRN (17:26)
[2021-05-10] MEDS ORDERED: oxyCODONE HCL SOLN 5 MG/5 ML UDC PO PRN (17:53)
[2021-05-10] MEDS: MoRPHine SULFATE 4 MG/ML 1 ML CARP\\VIAL IV PRN (20:01)
[2021-05-10] MEDS: METOPROLOL TARTRATE 50 MG TAB PO SCH (20:17)
--- NOTE | 2021-05-10 21:57 | Ultrasound Report ---
DOPPLER ULTRASOUND OF THE RENAL ARTERIES CLINICAL HISTORY: Hypertension. COMPARISON STUDY: Doppler ultrasound of the renal arteries dated 07/19/2020. TECHNIQUE: Doppler sonography of the renal arteries was performed to assess renal artery stenosis. Im ages are reviewed in the transverse and longitudinal planes. FINDINGS: The kidneys appear normal in size and echotexture. Right kidney measures 10.1 cm in length and the le ft kidney measures 10.1 cm in length. There is no hydronephrosis. On the right, intrarenal arterial resistive indices range from 0.68 to 1.0. Intrarenal arterial wavef orms are normal with brisk upstrokes. The right renal arterial waveform is normal, and velocities wit hin the right renal artery measure up to 57 cm/sec. The right renal vein is patent. On the left, intrarenal arterial resistive indices range from 0.70 to 0.75. Intrarenal arterial wave forms are normal with brisk upstrokes. The left renal arterial waveform is normal, and velocities wit hin the left renal artery measure up to 73 cm/sec. The left renal vein is patent. The abdominal aorta is patent. Velocities within the abdominal aorta measure up to 88 cm/s. IMPRESSION: There is no sonographic evidence of renal artery stenosis. ACT 112: Negative or not required by law. Electronically signed by: Abel Aragon M.D. 05/10/2021 9:56 PM
[2021-05-11] MEDS: MoRPHine SULFATE 4 MG/ML 1 ML CARP\\VIAL IV PRN ×3 (01:00→09:48)
[2021-05-11] MEDS: LEVOTHYROXINE SODIUM 25 MCG TABLET PO SCH (05:51)
[2021-05-11] MEDS: ENOXAPARIN INJ 40 MG/0.4 ML SYR SQ SCH (08:06)
[2021-05-11] MEDS: FUROSEMIDE 20 MG TAB PO SCH (08:07)
[2021-05-11] MEDS: GABAPENTIN 300 MG CAP PO SCH ×2 (08:08→14:06)
[2021-05-11] MEDS: VENLAFAXINE HCL 50 MG TAB PO SCH (08:09)
[2021-05-11] MEDS ORDERED: oxyCODONE HCL IR 5 MG TAB (IMMEDIATE RELEASE) PO PRN ×2 (08:09→11:44)
[2021-05-11] MEDS: PANTOprazole 40 MG TAB PO SCH (08:09)
[2021-05-11] MEDS: POLYETHYLENE (MIRALAX) 17 GM PACK PO SCH (08:10)
[2021-05-11] MEDS: METOPROLOL TARTRATE 50 MG TAB PO SCH (08:17)
[2021-05-11] MEDS ORDERED: ONDANSETRON 4 MG OD TAB PO STA (09:16)
[2021-05-11] MEDS: LOSARTAN POTASSIUM 50 MG TAB PO SCH (12:19)
[2021-05-11] MEDS: amLODIPine BESYLATE 5 MG TAB PO SCH (12:19)
--- NOTE | 2021-05-11 14:10 | Discharge Summary ---
Date of Service May 11, 2021 Admission HPI Per Admitting Provider Danuta Rader is a 40 y/o F w/ PMHx of chronic GI motility problems, PMHx of CVA, PE, anxiety/depression, fibromyalgia, tension headache, poorly controlled HTN, lupus nephritis who presents w/ sharp left chest pains, headache x approximately 4 days. She has a left sided headache that starts at the back of the neck. The sharp chest pains radiate to L shoulder and wrap around to her back. Upon further questioning, patient mentions that she has had difficulty focusing x 1 month. She denies any drug use other than medical marijuana. No stimulants and no tobacco/etoh. History was very limited at the time of my interview ~9:30pm because patient had altered mental status. I obtained some collateral history from patient's primary contact. He states that patient has had similar HTN and AMS ED visits in past. He had texted the patient earlier today and she did not seem confused via text. ED course: labetalol 10 IV x2. Fentanyl 50 IV. lorazepam 0.5 mgx1. Principal Diagnosis Stress-induced cardiomyopathy Discharge Exam GENERAL: A&Ox3. NAD. HEENT: PERRL, EOMI. Moist mucous membranes. CHEST/LUNGS: CTAB A/P. No crackles, wheezes, rales, rhonchi. HEART: RRR. No m/g/r. No carotid bruits. EXTREMITIES: No cyanosis, no clubbing, no edema SKIN: Warm and dry. No rashes or lesions. PSYCHIATRIC: Euthymic affect, no SI, no pressured speech, no hallucinations Discharge Data Allergies Allergy/AdvReac Type Severity Reaction Status Date / Time Sulfa (Sulfonamide Allergy Intermediate LUPUS Verified 05/08/21 17:21 Antibiotics) FLARE UP dexamethasone Allergy Unknown HIVES Verified 05/08/21 17:21 duloxetine Allergy Unknown UNKNOWN Verified 05/08/21 17:21 escitalopram Allergy Unknown UNKNOWN Verified 05/08/21 17:21 latex Allergy Unknown HIVES Verified 05/08/21 17:21 morphine Allergy Unknown local Verified 05/08/21 17:21 reaction at site pregabalin Allergy Unknown UNKNOWN Verified 05/08/21 17:21 Consultations 05/08/21 21:08 ED Decision to Admit Stat 05/09/21 09:57 Consult Cardiology Routine Procedures Performed Operation Date: 05/09/21 13:00 Actual Procedures p Cath, Left with Cors and Vent - Deric Mayers MD s Cineradiography w/Routine Exam - Deric Mayers MD Ordered Studies 05/08/21 17:36 CT angio chest PE protocol Stat CT head/brain wo con Stat 05/09/21 12:35 CL Cath Imgs for PACS use only Stat 05/10/21 15:29 US duplex renal artery Routine Hospital Course (1) Stress-induced cardiomyopathy: 40 y/o F w/ PMHx of CVA, anxiety/depression, tension headache, lupus nephritis, and multiple prior admissions for HTN urgency/emergency who presents w/ HTN urgency, headache, and chest pain. Stress-Induced Cardiomyopathy - EKG consistently normal sinus rhythm -Echocardiogram 05/09 with mild to moderately reduced LV function with EF of 40 to 45%, large area of akinesis involving the entire apex in the mid anterior/anteroseptal/septal tan -Had cath showing normal coronary arteries without obstructive lesions -Repeat echo 05/10 showing improved systolic function with EF of 55 to 60% and completely resolved wall motion abnormalities -Cardiology consulted - Absence of coronary artery disease and patient with severe but transient/reversible wall motion abnormalities is most consistent with a stress- induced cardiomyopathy (Takotsubo syndrome). - Since the mainstay of treatment for stress-induced cardiomyopathy is beta- blockade, would recommend changing from carvedilol to metoprolol 50 mg twice daily, further titrated to maintain heart rate in the 50-70 bpm range. - Consider addition of clonidine to her outpatient regimen 0.1 mg daily to be taken on a PRN basis for markedly elevated systolic blood pressure (e.g., >180 mmHg) -As per cardiology recommendations, discontinued carvedilol and started metoprolol as well as PRN clonidine - Patient's HR and BP stable on metoprolol, stable for DC - Reports ongoing CP, though better than initial presentation - Will DC with oxycodone 10mg q8h prn for short course - Recommend close outpatient f/u for discussion of pain management -- see abdominal pain problem below Hypertensive urgency: - No end-organ involvement - As above EKG remained normal - Had negative troponin initially, with recheck showing elevation and downtrending thereafter -Echocardiograms and cath as above -Cardiology consulted: - Consider addition of clonidine to her outpatient regimen 0.1 mg daily to be taken on a PRN basis for markedly elevated systolic blood pressure (e.g., >180 mmHg) - Should she develop severely refractory hypertension, could also consider minoxidil. - However, this would likely aggravate any tendency to orthostasis and would require regular diuretic use as well as beta-blockade to block reflex tachycardia. -Per discussion with cardiology, will order tests as below for ruling out pheochromocytoma and renal artery stenosis as secondary causes of hypertension - Aldosterone, renin pending - TSH normal - Renal artery US with no signs of MAYRA - Urinary catecholamines ordered -- 24hr collection started late evening and patient requesting she be DC sooner - Per pt she has outstanding order for this and can have done as outpatient, recommend she follow through with this - Continue amlodipine, furosemide, losartan at discharge, discontinue carvedilol in favor of metoprolol as above -Added daily metoprolol as above and clonidine as needed per cardiology Abdominal pain: -Chronic -Follows with [facility] for concerns of gastric motility issues -Per last [facility] note, has had continual issues dealing with the chronic severe pain -Pain management provider through [place] has recommended medical marijuana but this is proven to be too expensive for the patient -Possible that her chronic severe pain could be contributing to stress-induced cardiomyopathy -Received as needed Toradol and morphine in hospital with good response for several hours -Ideally, would avoid opioids as much as possible. However, patient's pain has been refractory to other methods -Per review of records, patient was on Suboxone until Jun 2020 - Per discussion with patient she had used narcotics in the past for chronic pain and did not use any for over 5 years - She then began having severe chronic pain again and tried Suboxone for a few months to avoid using narcotics again but dd not find it helpful and stopped this - Since then has continued with chronic pain and seen [facility], who did not feel they had anything to offer patient - Also saw [facility] afterwards as above -Will require outpatient discussion for continued management of chronic pain -d/christiane home with prescription of oxycodone. Hypothyroid: - continued home regimen Depression: - continued home Effexor Fibromyalgia: -Continued home baclofen and gabapentin -As above, will require outpatient discussion of continued chronic pain management Dispo: Home - Self Care (2) NSTEMI (non-ST elevated myocardial infarction): (3) Hypertensive urgency: (4) Altered mental status: (5) Abdominal pain: (6) Headache: (7) Hypothyroid: (8) Depression: (9) Fibromyalgia: Total Time Total Time Spent Total Time Spent (In Minutes): see attending attestation Discharge Plan Discharge Items Reason For Visit: HTN URGENCY Discharge Diagnosis: Stress-induced cardiomyopathy, hypertensive urgency Activity: Per Instructions section Non-emergency contact: Primary Care Provider and Pulp [employer]er Call non-emergency contact if: you have any medication questions, your symptoms worsen and your pain is not controlled Follow-up/Referrals: Matt Adame DO [Primary Care Provider] - Diet: Heart Healthy Addtl Attending Provider Instructions: You were admitted to [facility] on 05/08/2021 for chest pain and urgently elevated blood pressure. During your admission, you were on to have elevated troponin but normal EKG. As such, an echocardiogram was done which showed a very large wall motion abnormality. However, on repeat echocardiogram the next day the wall motion abnormality had completely resolved. As such, you were diagnosed with stress- induced cardiomyopathy. For this, your carvedilol was discontinued and you were switched to a medication called metoprolol. You will take metoprolol tartrate 50 mg twice daily for control of your heart rate. You will also be asked to continue all your other blood pressure medications, except for the carvedilol. Additionally, you will be sent home with a new medication called clonidine, which you will only take if you find your systolic blood pressure to be 180 or higher. For your pain, we will prescribe you a short course of Oxycodone 10mg orally every 8 hours as needed for pain. We recommend that you follow with the [facility] for discussion of your hospitalization and continued discussion of your chronic pain management. Should you develop any severe symptoms including, but not limited to, worsening chest pain, shortness of breath, or palpitations, please call your PCP's office or return to the hospital for further evaluation. Pending Studies at Discharge: No Stand-Alone Forms: My [facility], Smoking Cessation Medications and DC Order Prescriptions: New clonidine HCl 0.1 mg Tablet 0.1 mg PO DAILY PRN (Reason: Systolic BP at or above 180) Qty: 30 RF: 0 metoprolol tartrate 50 mg Tablet 50 mg PO BID 30 Days Qty: 60 RF: 0 oxycodone 10 mg tablet 10 mg PO TID PRN (Reason: pain) Qty: 20 RF: 0 Continued Linzess 290 mcg capsule 290 mcg PO QAM RF: 0 losartan 100 mg tablet 100 mg PO DAILY RF: 0 furosemide 20 mg tablet 20 mg PO DAILY Qty: 30 RF: 2 baclofen 20 mg Tablet 20 mg PO TID PRN (Reason: abdominal pian) Qty: 20 RF: 0 gabapentin 300 mg Capsule 900 mg PO TID Qty: 30 RF: 0 levothyroxine 25 mcg tablet 25 mcg PO QAM RF: 0 pantoprazole 40 mg tablet,delayed release (DR/EC) 40 mg PO BID 30 Days Qty: 60 RF: 1 amlodipine 10 mg tablet 10 mg PO QAM RF: 0 ondansetron HCl 4 mg tablet 4 mg PO DAILY PRN (Reason: Nausea And Vomiting) RF: 0 lubiprostone [Amitiza] 24 mcg capsule 24 mcg PO BID RF: 0 venlafaxine 100 mg tablet 200 mg PO DAILY RF: 0 Discontinued carvedilol 25 mg tablet 25 mg PO BID RF: 0 Admission Data Admit Date/Time: 05/10/21 16:03 Attending Provider: Melani Li Admit Provider: Galen Truong Primary Care Provider: Matt Adame Other Providers: Adelaide Perdue Anthony F. Other Interventions: Discharge Summary Assessment (RN) Last Done: 05/11/21 14:12 Supervising Physician Co-Signing Physician Notes Resident Physician Supervision Note: I independently interviewed and examined the patient and verified the atkins history and physical, reviewed labs and image studies and agree with resident Dr. Hummel findings and care plan. Resident Activity Tracking Resident Involvement: Resident Care Provided Care Provided: Adult Hospital Medicine
[2021-05-16 01:28] LABS: Renin Activity 0.93 ng/mL/h (0.25-5.82)
--- NOTE | 2021-05-22 07:21 | Coding Query ---
CODING QUERY To promote full compliance with coding requirements relating to patient care, provider participation is requested in all cases of informatics nurse uncertainty. Please assist us with the question(s) below: Coding Question(s): Please provide further clarification regarding the presences of NSTEMI (non-ST elevated myocardial infarction) during this admission Please remember that we are unable to code a diagnosis of rule out probably possible questionable or suspected ____ NSTEMI was present during this admission __x__ NSTEMI was not present during this admission ____ Other, please clarify Physician's Response(s): Thank you Bonnie Perdue Principal Diagnosis: "that condition established after study, to be chiefly responsible for occasioning the admission of the patient to the hospital for care." Co-Existing Principal Diagnosis: "when two or more diagnoses equally meet the criteria for principal diagnosis as determined by the circumstances of admission, diagnostic work up, and/or therapy provided, and the Alphabetic Index, Tabular List, or another coding guideline does not provide sequencing direction, any one of the diagnoses may be sequenced first." "When the physician has documented what appears to be a current diagnosis in the body of the record, but has not included the diagnosis in the final diagnostic statement, the physician should be asked whether the diagnosis should be added." (Source Coding Clinic 2 QTR90. p3-4) NILDA
== END 2021-05-11 16:00 | disposition home or self-care (01) ==
LOC: ED 16:12 → EDINP 16:12 → SUATTDRO 23:56 → 2S 05-09 02:28 → UNDODISIN 05-11 14:38
DX: F32.9 Major depressive disorder, single episode, unspecified; Z91.040 Latex allergy status; I10 Essential (primary) hypertension; M79.7 Fibromyalgia; G89.4 Chronic pain syndrome; I16.0 Hypertensive urgency; Z20.822 Contact with and (suspected) exposure to COVID-19; M32.9 Systemic lupus erythematosus, unspecified; R41.82 Altered mental status, unspecified; E03.9 Hypothyroidism, unspecified; Z87.891 Personal history of nicotine dependence; Z88.5 Allergy status to narcotic agent; R51.9 Headache, unspecified; Z88.2 Allergy status to sulfonamides; I51.81 Takotsubo syndrome; Z79.899 Other long term (current) drug therapy; Z86.73 Personal history of transient ischemic attack (TIA), and cerebral infarction without residual deficits; R10.9 Unspecified abdominal pain; Z88.8 Allergy status to other drugs, medicaments and biological substances; Z79.890 Hormone replacement therapy

== ENCOUNTER 2021-05-16 12:11 | Observation (INO) ==
[2021-05-16] MEDS ORDERED: ONDANSETRON INJ 2 MG/ML 2 ML VIAL IV STA (13:48)
[2021-05-16] MEDS ORDERED: MoRPHine SULFATE 4 MG/ML 1 ML CARP\\VIAL IV STA (13:48)
--- NOTE | 2021-05-16 13:58 | Emergency Department Note ---
ED Visit Note I saw this patient with Dr. Waggoner. Please refer to his note for HPI. . Resident Activity Tracking Resident Involvement: Resident Care Provided Care Provided: Adult ED
[2021-05-16 14:03] LABS: Basophils # (auto) 0.03 K/uL (0-0.2); Basophils % (auto) 0.5 %; Eosinophils % (auto) 1.6 %; Hemoglobin 14.2 g/dL (12.0-16.0); Immature Granulocytes # (auto) 0.02 K/uL (0.00-0.02); Immature Granulocytes % (auto) 0.3 %; Lymphocytes # (auto) 1.53 K/uL (1.2-3.4); Lymphocytes % (auto) 24.2 %; Mean Corpuscular Hemoglobin 31.9 pg (25-34); Mean Corpuscular Hgb Conc 35.5 g/dL (32-36); Mean Corpuscular Volume 89.9 fL (80-100); Mean Platelet Volume 10.8 fL (7.4-10.4); Monocytes # (auto) 0.45 K/uL (0.11-0.59); Monocytes % (auto) 7.1 %; Neutrophils # (auto) 4.19 K/uL (1.4-6.5); Neutrophils % (auto) 66.3 %; Platelet Count 227 K/uL (130-400); RDW Coefficient of Variation 12.4 % (11.5-14.5); RDW Standard Deviation 40.5 fL (36.4-46.3); Red Blood Count 4.45 M/uL (4.2-5.4); White Blood Count 6.32 K/uL (4.8-10.8)
--- NOTE | 2021-05-16 14:04 | Emergency Department Note ---
History of Present Illness General Chief complaint: Chest Pain Stated complaint: CHEST PAINS Time Seen by Provider: 05/16/21 13:21 Source: patient History of Present Illness Provider complaint: Chest pain Onset (ago): week(s) Location: chest Pain Consistency: + constant Maximum Pain Intensity: 8 Quality: + stabbing Relieved By: + medication Associated symptoms: + nausea/vomiting (Nausea without vomiting); no cough, no fever/chills or no shortness of breath This is a 40-year-old female with a history of lupus presenting with chest pain that has been nearly continuous for over a week. The patient states she was admitted to the hospital and had a cardiac catheterization which did not show a ny disease. She was told that she had stress-induced cardiomyopathy which then resolved after she had a second ultrasound. She states that when she was discharged her blood pressure was under control and she had significant improvement in her chest pain. She states the next day she started having chest pain again on the left side of her chest. She describes it as a stabbing pain. It is a little better when she takes her oxycodone. No associated shortness of breath. She states it has been continual since Thursday of this week. Even when she tries to sleep she still has the chest pain. She was seen at her doctor's office today and she was sent here for a troponin and to "figure out what her chest pain is from." She denies any fever, cough or cold symptoms, shortness of breath, vomiting, diarrhea, leg swelling or pain or urinary symptoms. She does state that she has chronic abdominal discomfort from motility issues. She is nauseous but not vomiting. She states that she had a PE in 2005 and was diagnosed with lupus anticoagulant but states that she is only been on aspirin for this. She states the chest pain that she is having today is the same chest pain she was admitted for. Home Medications Medication Instructions Recorded Confirmed Type levothyroxine 25 mcg tablet 25 mcg PO QAM 07/10/19 05/16/21 History pantoprazole 40 mg tablet,delayed 40 mg PO BID 30 Days #60 tab 08/15/20 05/16/21 Rx release baclofen 20 mg tablet 20 mg PO TID PRN #20 tab 08/30/20 05/16/21 Rx gabapentin 300 mg capsule 900 mg PO TID #30 cap 08/30/20 05/16/21 Rx amlodipine 10 mg tablet 10 mg PO QAM 10/12/20 05/16/21 History furosemide 20 mg tablet 20 mg PO DAILY #30 tab 04/17/21 05/16/21 Rx losartan 100 mg tablet 100 mg PO DAILY 04/17/21 05/16/21 History lubiprostone 24 mcg capsule 24 mcg PO BID 05/08/21 05/16/21 History (Amitiza) ondansetron HCl 4 mg tablet 4 mg PO DAILY PRN 05/08/21 05/16/21 History venlafaxine 100 mg tablet 200 mg PO DAILY 05/08/21 05/16/21 History clonidine HCl 0.1 mg tablet 0.1 mg PO DAILY PRN #30 tab 05/11/21 05/16/21 Rx metoprolol tartrate 50 mg tablet 50 mg PO BID 30 Days #60 tab 05/11/21 05/16/21 Rx oxycodone 10 mg tablet 10 mg PO TID PRN #20 tab 05/11/21 05/16/21 Rx Allergies Allergy/AdvReac Type Severity Reaction Status Date / Time dexamethasone Allergy Intermediate HIVES Verified 05/16/21 16:54 latex Allergy Intermediate HIVES Verified 05/16/21 16:54 Sulfa (Sulfonamide Allergy Intermediate LUPUS Verified 05/16/21 15:49 Antibiotics) FLARE UP morphine Allergy Mild local Verified 05/16/21 16:54 reaction at site duloxetine Allergy Unknown UNKNOWN Verified 05/16/21 15:49 escitalopram Allergy Unknown UNKNOWN Verified 05/16/21 15:49 pregabalin Allergy Unknown UNKNOWN Verified 05/16/21 15:49 Past Med/Surg History Medical History Anxiety Chronic pain syndrome Depression Fibromyalgia Gastritis Gastroparesis History of kidney infection History of lupus anticoagulant disorder History of migraine History of multiple miscarriages History of ovarian cyst History of umbilical hernia Hypertension Hypothyroidism Intractable epigastric abdominal pain Lupus (04/04/14) Lupus nephritis Osteoarthritis Peptic ulcer disease Pleuritis (09/17/14) history of Poorly-controlled hypertension Post traumatic stress disorder Pulmonary embolism history of Surgical History H/O: hysterectomy History of tonsillectomy and adenoidectomy Hx of appendectomy Hx of cholecystectomy Port-A-Cath in place (08/29/20) Mediport Placement, Left Subclavian Vein Dr. 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 and A total of 10 systems reviewed and were otherwise negative Physical Exam Vital Signs Vital Signs - 24 hr 05/16/21 12:13 05/16/21 12:27 05/16/21 13:33 Temperature 35.8 C L Temperature Source Temporal Artery Scan Pulse Rate 75 73 82 Pulse Rate from SpO2 Sensor 73 76 Respiratory Rate 18 31 H 18 Respiratory Depth Normal Blood Pressure 201/108 H 158/92 H 202/118 H Blood Pressure Mean 139 114 146 Pulse Oximetry 99 100 98 Oxygen Delivery Method Room Air Sepsis Recent Fever Within 48 Hours No Sepsis New/Unexplained Change in Mental Status No Sepsis Action Taken by Nursing No Action Required 05/16/21 13:48 05/16/21 14:00 05/16/21 14:10 Temperature Temperature Source Pulse Rate 71 68 Pulse Rate from SpO2 Sensor 70 68 Respiratory Rate 20 16 Respiratory Depth Blood Pressure 193/110 H 179/110 H Blood Pressure Mean 137 133 Pulse Oximetry 99 100 100 Oxygen Delivery Method Room Air Sepsis Recent Fever Within 48 Hours Sepsis New/Unexplained Change in Mental Status Sepsis Action Taken by Nursing 05/16/21 14:30 05/16/21 15:01 05/16/21 15:21 Temperature Temperature Source Pulse Rate 65 71 65 Pulse Rate from SpO2 Sensor 64 72 66 Respiratory Rate 17 25 H 25 H Respiratory Depth Blood Pressure 171/114 H 181/133 H 184/113 H Blood Pressure Mean 133 149 136 Pulse Oximetry 95 100 100 Oxygen Delivery Method Sepsis Recent Fever Within 48 Hours Sepsis New/Unexplained Change in Mental Status Sepsis Action Taken by Nursing 05/16/21 15:30 Temperature Temperature Source Pulse Rate 63 Pulse Rate from SpO2 Sensor 63 Respiratory Rate 22 Respiratory Depth Blood Pressure 177/116 H Blood Pressure Mean 136 Pulse Oximetry 99 Oxygen Delivery Method Sepsis Recent Fever Within 48 Hours Sepsis New/Unexplained Change in Mental Status Sepsis Action Taken by Nursing Constitutional: Vital signs reviewed. Eyes: Pupils are equal round reactive to light. Conjunctiva are noninjected. ENT: Pharynx is clear without erythema or exudate. Mucous membranes are moist. Neck supple without meningeal signs. Respiratory: Clear to auscultation bilaterally. Breath sounds are equal bilaterally. Cardiovascular: Regular rate and rhythm. No rubs or gallops. GI: Soft, nondistended and nontender. Bowel sounds are present. Musculoskeletal: No peripheral edema. No lower extremity tenderness. Port left anterior superior chest with some mild erythema surrounding the adhesive on the superior aspect. Integumentary: No cyanosis. or jaundice. Neurological: The patient is awake and alert. No focal deficits. Psychiatric: Normal affect. Not anxious appearing. Course Administered Medications Nitroglycerin (Nitroglycerin 2% Ointment 30gm Tube) 1 inch EXT Q6H THAO Stop: 06/15/21 16:52 Last Admin: 05/16/21 17:01 Dose: Not Given Documented by: [id number] Oxycodone HCl (Oxycodone Hcl Ir 5 Mg Tab (Immediate Release)) 10 mg PO TID PRN PRN Reason: pain Stop: 05/30/21 16:52 Last Admin: 05/16/21 16:59 Dose: 10 mg Documented by: [id number] Discontinued Medications Lorazepam (Ativan) 0.5 mg in 1 mls @ 1 mls/min IV NOW STA Stop: 05/16/21 15:06 Last Admin: 05/16/21 15:38 Dose: 1 mls/min Documented by: [id number] Magnesium Sulfate/Dextrose (Magnesium Sulfate / D5w) 1 gm in 100 mls @ 50 mls/hr IV ONE ONE Stop: 05/16/21 17:21 Last Infusion: 05/16/21 17:43 Dose: 0 mls/hr Documented by: [id number] Admin: 05/16/21 15:39 Dose: 50 mls/hr Documented by: [id number] Ketorolac Tromethamine (Ketorolac Tromethamine 15 Mg/Ml Vial) 15 mg IV NOW STA Stop: 05/16/21 15:28 Last Admin: 05/16/21 15:38 Dose: 15 mg Documented by: [id number] Labetalol HCl (Labetalol Hcl Iv 5 Mg/Ml 20ml) 5 mg IV NOW STA Stop: 05/16/21 15:00 Last Admin: 05/16/21 15:24 Dose: 5 mg Documented by: [id number] Cosigned by: [id number] Morphine Sulfate (Morphine Sulfate 4 Mg/Ml 1 Ml Carp\\Vial) 4 mg IV NOW STA Stop: 05/16/21 13:49 Last Admin: 05/16/21 14:10 Dose: 4 mg Documented by: [id number] Nitroglycerin (Nitroglycerin 2% Ointment 30gm Tube) 1 inch EXT NOW STA Stop: 05/16/21 15:37 Last Admin: 05/16/21 16:56 Dose: Not Given Documented by: [id number] Ondansetron HCl (Ondansetron Inj 2 Mg/Ml 2 Ml Vial) 4 mg IV NOW STA Stop: 05/16/21 13:49 Last Admin: 05/16/21 14:10 Dose: 4 mg Documented by: [id number] Medical Decision Making Differential Diagnosis Hypertensive emergency, pleurisy, costochondritis, cardiomyopathy, pulmonary embolism Medical Records Attestation: I reviewed the patient's medical records. I did perform a limited focused review of portions of the patient's old chart on the electronic medical record. The patient was admitted to the hospital on May 08 for chest pain and hypertensive emergency. She had a negative troponin on admission but later had an elevated troponin and an echocardiogram which showed an EF of 40 to 45% with wall motion abnormalities. She had a cardiac catheterization which showed no coronary artery disease. She then had a repeat echo the next day which showed an EF of 55% without any wall motion abnormalities. She also had a CT angiogram of the chest on admission which was negative for PE. Home Medications Current Medication List: was personally reviewed by me Laboratory Data Attestation: I reviewed the patient's lab results. Result diagrams: 05/16/21 13:34 05/16/21 13:34 Lab Results 05/16/21 05/16/21 05/16/21 Range/Units 13:34 13:34 13:34 WBC 6.32 (4.8-10.8) K/uL RBC 4.45 (4.2-5.4) M/uL Hgb 14.2 (12.0-16.0) g/dL Hct 40.0 (37-47) % MCV 89.9 (80-100) fL MCH 31.9 (25-34) pg MCHC 35.5 (32-36) g/dL RDW Std Deviation 40.5 (36.4-46.3) fL RDW Coeff of Meg 12.4 (11.5-14.5) % Plt Count 227 (130-400) K/uL MPV 10.8 H (7.4-10.4) fL Immature Gran % (Auto) 0.3 % Neut % (Auto) 66.3 % Lymph % (Auto) 24.2 % Cecil % (Auto) 7.1 % Eos % (Auto) 1.6 % Baso % (Auto) 0.5 % Neut # (Auto) 4.19 (1.4-6.5) K/uL Lymph # (Auto) 1.53 (1.2-3.4) K/uL Cecil # (Auto) 0.45 (0.11-0.59) K/uL Eos # (Auto) 0.10 (0-0.5) K/uL Baso # (Auto) 0.03 (0-0.2) K/uL Immature Gran # (Auto) 0.02 (0.00-0.02) K/uL ESR (0-20) mm/hr APTT 29.6 (21.0-31.0) Seconds PTT Ratio 1.1 Sodium 139 (136-145) mmol/L Potassium 3.8 (3.5-5.1) mmol/L Chloride 107 (98-107) mmol/L Carbon Dioxide 26 (21-32) mmol/L Anion Gap 6.0 (3-11) BUN 11 (7-18) mg/dl Creatinine 0.91 (0.6-1.2) mg/dl Est Cr Clr Drug Dosing 101.9 ml/min Est GFR ( Amer) 91.5 ml/min Est GFR (Non-Af Amer) 78.9 ml/min BUN/Creatinine Ratio 12.6 (10-20) Glucose 93 (70-99) mg/dl Calcium 9.1 (8.5-10.1) mg/dl Total Bilirubin 0.5 (0.2-1) mg/dl AST 40 H (15-37) U/L ALT 140 H (12-78) U/L Alkaline Phosphatase 154 H (45-117) U/L Troponin I < 0.015 (0-0.045) ng/ml Total Protein 7.4 (6.4-8.2) gm/dl Albumin 3.5 (3.4-5.0) gm/dl Globulin 3.9 (2.5-4.0) gm/dl Albumin/Globulin Ratio 0.9 (0.9-2) Lipase 45 L (73-393) U/L COVID-19 Eval Order SARS-CoV-2 (PCR) (Negative) 05/16/21 05/16/21 05/16/21 Range/Units 13:34 14:56 14:56 WBC (4.8-10.8) K/uL RBC (4.2-5.4) M/uL Hgb (12.0-16.0) g/dL Hct (37-47) % MCV (80-100) fL MCH (25-34) pg MCHC (32-36) g/dL RDW Std Deviation (36.4-46.3) fL RDW Coeff of Meg (11.5-14.5) % Plt Count (130-400) K/uL MPV (7.4-10.4) fL Immature Gran % (Auto) % Neut % (Auto) % Lymph % (Auto) % Cecil % (Auto) % Eos % (Auto) % Baso % (Auto) % Neut # (Auto) (1.4-6.5) K/uL Lymph # (Auto) (1.2-3.4) K/uL Cecil # (Auto) (0.11-0.59) K/uL Eos # (Auto) (0-0.5) K/uL Baso # (Auto) (0-0.2) K/uL Immature Gran # (Auto) (0.00-0.02) K/uL ESR 14 (0-20) mm/hr APTT (21.0-31.0) Seconds PTT Ratio Sodium (136-145) mmol/L Potassium (3.5-5.1) mmol/L Chloride (98-107) mmol/L Carbon Dioxide (21-32) mmol/L Anion Gap (3-11) BUN (7-18) mg/dl Creatinine (0.6-1.2) mg/dl Est Cr Clr Drug Dosing ml/min Est GFR ( Amer) ml/min Est GFR (Non-Af Amer) ml/min BUN/Creatinine Ratio (10-20) Glucose (70-99) mg/dl Calcium (8.5-10.1) mg/dl Total Bilirubin (0.2-1) mg/dl AST (15-37) U/L ALT (12-78) U/L Alkaline Phosphatase (45-117) U/L Troponin I (0-0.045) ng/ml Total Protein (6.4-8.2) gm/dl Albumin (3.4-5.0) gm/dl Globulin (2.5-4.0) gm/dl Albumin/Globulin Ratio (0.9-2) Lipase (73-393) U/L COVID-19 Eval Order Covid19 at [facility] SARS-CoV-2 (PCR) NEGATIVE (Negative) Imaging Data Radiologist's Impression: Chest X-Ray 05/16/21 13:48 XR chest 1V portable INDICATION: MN ^Y ^Chest Pain . TECHNIQUE: Single frontal radiograph of the chest was obtained. Comparison: Comparison is made to chest one view 04/15/2021 FINDINGS: No lines and tubes are seen. The cardiomediastinal silhouette is normal. Lungs are underinflated but clear. No evidence of pleural effusion or pneumothorax. IMPRESSION: No acute chest disease. ACT 112: Negative or not required by law. Electronically signed by: Barrett Ellington M.D. 05/16/2021 2:32 PM ECG Data Attestation: I personally reviewed and interpreted this ECG as follows: Indication: + chest pain Rate (beats per minute): 61 Rhythm: + normal sinus ECG Whittaker: + Normal ECG ST segments: + T-wave inversions ECG Findings: no PVCs Comparison ECG Date: from (May 09, 2021) Change: the following changes noted (T wave inversions are new.) MDM Narrative I did evaluate the patient as noted above. IV access was established. I did place an order for continuous cardiac monitoring. The monitor showed normal sinus rhythm at a rate of 80 bpm. I did order and personally review the patient's 12-lead EKG as described above. She has new T wave inversions in the anterior lateral and high lateral leads. These are not present on her previous EKG from the . I did order and personally reviewed the images of the patient's chest x-ray as described above. I did order a urine analysis. I did order and review the patient's blood work as noted in the electronic medical record. CBC is unremarkable without leukocytosis or anemia. Electrolytes are unremarkable. Troponin is negative. LFTs show an AST of 48 and ALT of 140 with an alk phos of 154. She has had intermittent elevations of her transaminases in the past. On reevaluation she is still hypertensive and was given labetalol IV. She still has her chest pain. The test results were discussed with the patient. She will be hospitalized for further care and evaluation. The case was discussed with the hospitalist and manager of case. Resident Physician Supervision Note: I did perform an independent evaluation and examination of this patient as described. I also saw this patient in conjunction with the resident, Dr. Vannesa white, and guided management for the patient. Impression & Plan Hypertensive emergency, Left-sided chest pain, Abnormal ECG, Abnormal LFTs Discharge Plan Visit Data Chief Complaint: Chest Pain Stated Complaint: CHEST PAINS ED Provider: Andrey Waggoner ED Midlevel Provider: Brady Lockhart Discharge Problem: Hypertensive emergency, Left-sided chest pain, Abnormal ECG, Abnormal LFTs Patient Disposition: Admitted As Inpatient Discharge Instructions Interventions: ED Discharge Assessment Last Done: 05/16/21 16:39
[2021-05-16 14:12] LABS: Alanine Aminotransferase 140 U/L (12-78); Albumin Level 3.5 gm/dl (3.4-5.0); Aspartate Aminotransferase 40 U/L (15-37); BUN Creatinine Ratio 12.6 (10-20); Blood Urea Nitrogen 11 mg/dl (7-18); Calcium 9.1 mg/dl (8.5-10.1); Carbon Dioxide 26 mmol/L (21-32); Chloride 107 mmol/L (98-107); Creatinine Clr Calc Pharmacy 101.9 ml/min; Est GFR (African American) 91.5 ml/min; Est GFR (Non-African American) 78.9 ml/min; Glucose 93 mg/dl (70-99); Lipase 45 U/L (73-393); Potassium 3.8 mmol/L (3.5-5.1); Sodium 139 mmol/L (136-145)
[2021-05-16 14:13] LABS: Partial Thromboplastin Ratio 1.1; Partial Thromboplastin Time 29.6 Seconds (21.0-31.0)
[2021-05-16 14:17] LABS: Albumin Globulin Ratio 0.9 (0.9-2); Alkaline Phosphatase 154 U/L (45-117); Bilirubin,Total 0.5 mg/dl (0.2-1); Globulin 3.9 gm/dl (2.5-4.0); Total Protein 7.4 gm/dl (6.4-8.2); Troponin I < 0.015 ng/ml (0-0.045)
--- NOTE | 2021-05-16 14:33 | XRay Report ---
XR chest 1V portable INDICATION: MN ^Y ^Chest Pain . TECHNIQUE: Single frontal radiograph of the chest was obtained. Comparison: Comparison is made to chest one view 04/15/2021 FINDINGS: No lines and tubes are seen. The cardiomediastinal silhouette is normal. Lungs are underinflated but clear. No evidence of pleural effusion or pneumothorax. IMPRESSION: No acute chest disease. ACT 112: Negative or not required by law. Electronically signed by: Barrett Ellington M.D. 05/16/2021 2:32 PM
[2021-05-16] MEDS ORDERED: LABETALOL HCL IV 5 MG/ML 20ML IV STA (14:59)
--- NOTE | 2021-05-16 15:02 | History & Physical Report ---
Date of Service May 16, 2021 Assessment & Plan (1) Hypertensive urgency: Plan: I am unclear on whether her pain is secondary to the HTN or HTN secondary to pain. Patient favors the later as when her pain has previously been treated her BP improves but that would fail to explain why she has the pain in the first place. I do not see any urine/serum metanephrine results therefore will do this for completeness of workup for secondary causes. Pheochromocytoma would explain intermittent nature of symptoms but no adenoma or prior imaging (although no dedicated scan seen on [facility] EHR). I think it is unlikely she is pain seeking or malingering given EKG changes, p rior troponin rise and Takutsubo's. Although if she was for some reason not taking her BP medications at home this would explain her readmission but would not explain why a 40 year old needs multiple anti-hypertensives in the first place. She claims to be taking all her medications as prescribed. HTN is clearly affecting her heart and I most likely think her chest pain is secondary to her heart being affected. Restart all her usual medication now but switch ISMN to nitro patch as this can be adjusted as necessary and add PRN hydralazine. ESR/CRP to assess ?lupus flare up. 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 Trend troponins. No CAD on recent cath. ?coronary artery spasms (4) Abnormal LFTs: Plan: Unclear cause, will trend. They were also more elevated post operatively after her port placement but appear to trend back to normal. ?secondary to hyperte nsion (although this doesn't match up to what happened in August). ?iatrogenic. (5) Stress-induced cardiomyopathy: Plan: On recent hospitalization Will repeat limited echo to assess for recurrence. Plan: VTE Prophylaxis - low risk Diet - heart healthy Disposition - observation status to med/tele Admission and Anticipated Discharge Date Admission Date: May 16, 2021 History of Present Illness Chief Complaint: Hypertensive urgency Primary Care Provider: DO Michael Ramirezguera Rader is a 40 year old female with lupus who presents to the ER with chest pain. This is the same pain she was given that was getting better on her prior admission from May 08-2020. On that occasion she did have a troponin rise and was diagnosed with Takutsubo's which resolved the following day on echocardiogram. She reports her chest pain had mostly resolved on discharge. She felt well on Thursday and Thursday. However on Thursday when she woke up she had severe 10/10 pain again. Aching pain but beats the same time as her heart, left side of her chest without radiation. Hit her like "a ton of bricks". She reports this chest pain is new since last admission. She previously suffered from chronic abdominal pain with extensive workup and she is under a [facility] specialist with suspected motility disorder. She reports she just lives with the abdominal pain now. She also has fibromyalgia however this pain is not muscular and no worse on palpation and she feels is is different to her fibromyalgia pain. She does report previously using chronic prescribed opiates and benzodiazepines but weaned herself off 5 years ago. She is currently not taking anything for her lupus but also has no definitive lupus symptoms a the present time. Prior use of Plaquenil caused "eye problems"; presumably retinopathy. She has an appointment with rheumatology but that is months out. Her GI motility issues are possible thought to be secondary to lupus although inflammatory markers were normal when she was having problems in July. She is under nephrology for her uncontrolled hypertension. It looks like she has had most of the tests ordered at her last visit but I do not see the results of serum/urine metanephrines. US renal artery doppler was normal last visit as is her renin aldosterone levels. In the ER she is currently having 9/10 severity chest pain but improved from when she first came in after morphine was given. She was referred to medicine for admission and ongoing management of chest pain, hypertensive urgency and abnormal EKG changes. Allergies Allergy/AdvReac Type Severity Reaction Status Date / Time dexamethasone Allergy Intermediate HIVES Verified 05/16/21 16:54 latex Allergy Intermediate HIVES Verified 05/16/21 16:54 Sulfa (Sulfonamide Allergy Intermediate LUPUS Verified 05/16/21 15:49 Antibiotics) FLARE UP morphine Allergy Mild local Verified 05/16/21 16:54 reaction at site duloxetine Allergy Unknown UNKNOWN Verified 05/16/21 15:49 escitalopram Allergy Unknown UNKNOWN Verified 05/16/21 15:49 pregabalin Allergy Unknown UNKNOWN Verified 05/16/21 15:49 Home Medications Medication Instructions Recorded Confirmed Type levothyroxine 25 mcg tablet 25 mcg PO QAM 07/10/19 05/16/21 History pantoprazole 40 mg tablet,delayed 40 mg PO BID 30 Days #60 tab 08/15/20 05/16/21 Rx release baclofen 20 mg tablet 20 mg PO TID PRN #20 tab 08/30/20 05/16/21 Rx gabapentin 300 mg capsule 900 mg PO TID #30 cap 08/30/20 05/16/21 Rx amlodipine 10 mg tablet 10 mg PO QAM 10/12/20 05/16/21 History furosemide 20 mg tablet 20 mg PO DAILY #30 tab 04/17/21 05/16/21 Rx losartan 100 mg tablet 100 mg PO DAILY 04/17/21 05/16/21 History lubiprostone 24 mcg capsule 24 mcg PO BID 05/08/21 05/16/21 History (Amitiza) ondansetron HCl 4 mg tablet 4 mg PO DAILY PRN 05/08/21 05/16/21 History venlafaxine 100 mg tablet 200 mg PO DAILY 05/08/21 05/16/21 History clonidine HCl 0.1 mg tablet 0.1 mg PO DAILY PRN #30 tab 05/11/21 05/16/21 Rx metoprolol tartrate 50 mg tablet 50 mg PO BID 30 Days #60 tab 05/11/21 05/16/21 Rx oxycodone 10 mg tablet 10 mg PO TID PRN #20 tab 05/11/21 05/16/21 Rx Past Med/Surg History Medical History Anxiety Chronic pain syndrome Depression Fibromyalgia Gastritis Gastroparesis History of kidney infection History of lupus anticoagulant disorder History of migraine History of multiple miscarriages History of ovarian cyst History of umbilical hernia Hypertension Hypothyroidism Intractable epigastric abdominal pain Lupus (04/04/14) Lupus nephritis Osteoarthritis Peptic ulcer disease Pleuritis (09/17/14) history of Poorly-controlled hypertension Post traumatic stress disorder Pulmonary embolism history of Surgical History H/O: hysterectomy History of tonsillectomy and adenoidectomy Hx of appendectomy Hx of cholecystectomy Port-A-Cath in place (08/29/20) Mediport Placement, Left Subclavian Vein Dr. Garcia 08/29/2020 Family History Sister SLE (systemic lupus erythematosus) Family/Other SLE (systemic lupus erythematosus) maternal side Social History Smoking Status: Former smoker Tobacco Type: Cigarettes Age Started Using Tobacco: 23; Age Quit Using Tobacco: 39; Second Hand Exposure: No; Hx Alcohol Use: No Hx Substance Use: No Preferred Language: Armenian Communication Ability: Effective Manager Talent Required: No Beliefs That Will Affect Care: None marital status: Single Current Living Situation: Spouse Current Living Situation Comment: fiance in [place] current occupational status: employed 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 How many Children do You have: 2 Feels Safe at Home: Yes Safety Concerns: Feels Safe At This Time Assistive Devices: Glasses Review of Systems Review of Systems: All systems reviewed & are unremarkable except as noted in HPI & below Ongoing chronic changes in bowel habit from constipation/diarrhea, chronic abdominal pain Physical Exam Constitutional: WD/WN, vitals as above Eyes: PERRL, conjunctivae normal, anicteric sclerae ENMT: external ear and nose normal, oropharynx normal Neck: trachea midline, no thyromegaly Respiratory: normal respiratory effort, lungs clear to auscultation Cardiovascular: RRR, no murmur, no edema Chest (Breasts): Chest: normal inspection of chest (no pain on palpation of left chest over her pain site) Gastrointestinal (Abdomen): normal bowel sounds, soft, nontender, no hepatosplenomegaly Musculoskeletal: no cyanosis or clubbing, extremities motor strength 5/5 Skin: no rashes, warm and dry Neurologic: moves all extremities and awake; not confused Psychiatric: A+Ox3, euthymic affect Genitourinary: no CVA tenderness Results & Data Results & Data ([facility]) Vital Signs (Past 12 Hours) Vital Signs Temp Pulse Resp BP Pulse Ox 05/16/21 13:48 99 05/16/21 13:33 82 18 202/118 H 98 05/16/21 12:27 73 31 H 158/92 H 100 05/16/21 12:13 35.8 C L 75 18 201/108 H 99 Diagnostic Findings XR chest 1V portable INDICATION: MN ^Y ^Chest Pain TECHNIQUE: Single frontal radiograph of the chest was obtained. Comparison: Comparison is made to chest one view 04/15/2021 FINDINGS: No lines and tubes are seen. The cardiomediastinal silhouette is normal. Lungs are underinflated but clear. No evidence of pleural effusion or pneumothorax. IMPRESSION: No acute chest disease. Medications Administered ER Medications Given: Morphine 4mg IV Ondansetron 4mg IV Labetalol 5mg IV ECG Indication: chest pain Rate (beats per minute): 61 Rhythm: normal sinus Findings: + T-wave inversion (Anterolateral) Comparison ECG Date: from (May 09, 2021) Change: the following changes noted (TWI are new) Code Status & VTE Plan Code Status Full VTE Prophylaxis Plan VTE Prophylaxis will be ordered: No Reason for no VTE drug order: Treatment not indicated Reason for no VTE mechanical prophylaxis: Treatment not indicated PG Care Time/CCT Total # of Minutes Spent Total Time Spent with Patient: Total time spent is greater than 50% in coordination of care (as documented) at patient's floor/unit and/or counseling patient: Coding Level of Care Code INT OBSERVATION CARE 70M LVL 3 Diagnoses Hypertensive urgency I16.0 Left-sided chest pain R07.9 Abnormal ECG R94.31 Abnormal LFTs R94.5 Stress-induced cardiomyopathy I51.81
[2021-05-16] MEDS ORDERED: LORazepam 0.5 MG/1 ML VIAL IV STA (15:05)
[2021-05-16] MEDS ORDERED: MAGNESIUM SULFATE / D5W 1 GM/100 ML BAG IV ONE (15:22)
[2021-05-16] MEDS ORDERED: KETOROLAC TROMETHAMINE 15 MG/ML VIAL IV STA (15:27)
[2021-05-16] MEDS ORDERED: hydrALAZINE HCL 20 MG/ML VIAL IV PRN (15:32)
[2021-05-16] MEDS ORDERED: NITROGLYCERIN 2% OINTMENT 30GM TUBE EXT STA (15:36)
[2021-05-16] MEDS ORDERED: ONDANSETRON 4 MG OD TAB PO PRN (16:55)
[2021-05-16] MEDS: oxyCODONE HCL IR 5 MG TAB (IMMEDIATE RELEASE) PO PRN ×2 (16:59→23:31)
[2021-05-16] MEDS: NITROGLYCERIN 2% OINTMENT 30GM TUBE EXT SCH ×2 (17:01→22:01)
[2021-05-16] MEDS: LORazepam 1 MG TAB PO PRN (19:12)
[2021-05-16] MEDS: MoRPHine SULFATE 2 MG/ML CARP IV PRN (19:13)
[2021-05-16] MEDS: LUBIPROSTONE 8 MCG CAP PO SCH (20:07)
[2021-05-16] MEDS: GABAPENTIN 300 MG CAP PO SCH (20:07)
[2021-05-16] MEDS: PANTOprazole 40 MG TAB PO SCH (20:08)
[2021-05-16] MEDS: METOPROLOL TARTRATE 50 MG TAB PO SCH (20:08)
[2021-05-16] MEDS: BACLOFEN 20 MG TAB PO PRN ×2 (20:10→20:11)
[2021-05-16 21:10] LABS: C Reactive Protein 0.82 mg/dl (0-0.29); Troponin I < 0.015 ng/ml (0-0.045)
[2021-05-17] MEDS: MoRPHine SULFATE 2 MG/ML CARP IV PRN ×5 (01:53→21:45)
[2021-05-17] MEDS: NITROGLYCERIN 2% OINTMENT 30GM TUBE EXT SCH ×3 (06:05→15:57)
[2021-05-17] MEDS: KETOROLAC TROMETHAMINE 15 MG/ML VIAL IV PRN ×3 (06:06→21:45)
[2021-05-17 06:42] LABS: Basophils # (auto) 0.03 K/uL (0-0.2); Basophils % (auto) 0.6 %; Eosinophils # (auto) 0.11 K/uL (0-0.5); Hemoglobin 13.3 g/dL (12.0-16.0); Immature Granulocytes # (auto) 0.02 K/uL (0.00-0.02); Immature Granulocytes % (auto) 0.4 %; Lymphocytes # (auto) 1.73 K/uL (1.2-3.4); Lymphocytes % (auto) 32.2 %; Mean Corpuscular Hemoglobin 31.8 pg (25-34); Mean Corpuscular Volume 90.9 fL (80-100); Mean Platelet Volume 10.6 fL (7.4-10.4); Monocytes # (auto) 0.44 K/uL (0.11-0.59); Monocytes % (auto) 8.2 %; Neutrophils # (auto) 3.05 K/uL (1.4-6.5); Neutrophils % (auto) 56.6 %; Platelet Count 234 K/uL (130-400); RDW Coefficient of Variation 12.7 % (11.5-14.5); RDW Standard Deviation 41.5 fL (36.4-46.3); Red Blood Count 4.18 M/uL (4.2-5.4); White Blood Count 5.38 K/uL (4.8-10.8)
[2021-05-17 07:15] LABS: Alanine Aminotransferase 114 U/L (12-78); Albumin Level 3.2 gm/dl (3.4-5.0); Aspartate Aminotransferase 43 U/L (15-37); BUN Creatinine Ratio 11.8 (10-20); Blood Urea Nitrogen 12 mg/dl (7-18); Calcium 8.2 mg/dl (8.5-10.1); Carbon Dioxide 27 mmol/L (21-32); Chloride 107 mmol/L (98-107); Creatinine Clr Calc Pharmacy 90.4 ml/min; Est GFR (African American) 78.7 ml/min; Est GFR (Non-African American) 67.9 ml/min; Glucose 99 mg/dl (70-99); Potassium 3.5 mmol/L (3.5-5.1); Sodium 140 mmol/L (136-145)
[2021-05-17 07:19] LABS: Alkaline Phosphatase 165 U/L (45-117); Bilirubin,Total 0.5 mg/dl (0.2-1); Globulin 3.2 gm/dl (2.5-4.0); Total Protein 6.4 gm/dl (6.4-8.2); Troponin I < 0.015 ng/ml (0-0.045)
[2021-05-17] MEDS: LEVOTHYROXINE SODIUM 25 MCG TABLET PO SCH (07:35)
[2021-05-17] MEDS: LORazepam 1 MG TAB PO PRN ×2 (08:33→16:50)
[2021-05-17] MEDS: oxyCODONE HCL IR 5 MG TAB (IMMEDIATE RELEASE) PO PRN ×2 (08:33→16:50)
[2021-05-17] MEDS: PANTOprazole 40 MG TAB PO SCH ×2 (08:34→21:13)
[2021-05-17] MEDS: LOSARTAN POTASSIUM 50 MG TAB PO SCH (08:34)
[2021-05-17] MEDS: amLODIPine BESYLATE 5 MG TAB PO SCH (08:34)
[2021-05-17] MEDS: FUROSEMIDE 20 MG TAB PO SCH (08:34)
[2021-05-17] MEDS: LUBIPROSTONE 8 MCG CAP PO SCH ×2 (08:34→21:20)
[2021-05-17] MEDS: GABAPENTIN 300 MG CAP PO SCH ×3 (08:34→21:12)
[2021-05-17] MEDS: VENLAFAXINE HCL 50 MG TAB PO SCH (08:35)
[2021-05-17] MEDS: METOPROLOL TARTRATE 50 MG TAB PO SCH ×2 (08:35→21:13)
[2021-05-17] MEDS ORDERED: HEPARIN 100 UNIT/ML 5ML FLUSH FLUSH PRN (08:39)
[2021-05-17] MEDS ORDERED: ASPIRIN 325 MG ECTAB PO SCH (09:00)
[2021-05-17] MEDS ORDERED: POLYETHYLENE (MIRALAX) 17 GM PACK PO PRN (09:01)
--- NOTE | 2021-05-17 10:23 | Nephrology Consultation ---
Date of Consultation May 17, 2021 Assessment & Plan (1) Hypertensive urgency: (2) Left-sided chest pain: (3) Stress-induced cardiomyopathy: Hypertensive urgency with negative workup for secondary hypertension. Elevated blood pressure most likely secondary to stress related to chronic pain, current chest pain. Blood pressure seemed to have improved and currently well controlled. --would not recommend any other workup at this time as all workup was otherwise unremarkable. Highly unlikely to be Pheo as recent CT abdomen pelvis was unremarkable, metanephrines are pending. --continue current antihypertensive medications, focus on pain control -- okay to continue hydralazine IV p.r.n. for systolic blood pressure above 160 Will sign off, patient has outpatient follow-up scheduled in a week. Thank you for allowing me to participate in your patient's care. It was a pleasure to see Danuta History of Present Illness Reason for Consultation: Hypertensive urgency. Attending Physician: Jose Varela MD History of Present Illness Danuta Rader is a 40-year-old female with past medical history significant for hypertension admitted to the hospital with chest pain. Nephrology consult was requested for hypertensive urgency. EMR records are reviewed in detail during patient's visit. Danuta Initially presented to ER on 05/08/2021 with chest pain. Troponin was mildly elevated although there is no ST-T changes on EKG. 2D echo showed wall motion abnormality and EF of 40-45%. Had cardiac catheterization which was unremarkable with no coronary artery abnormality. repeat 2D echo on 05/10/2021 showed EF improved to 50 to 55% and wall motion abnormality resolved. Clinically she was considered to have a stressed induced cardiomyopathy or takotsubo cardiomyopathy, beta-sola was increased to metoprolol 50 mg twice a day. Blood pressure during that admission was pretty well controlled. She was discharged however she presented again yesterday as she continued to have significant chest pain at home. Troponin was unremarkable, EKG otherwise unremarkable. She continues to have significant left-sided chest pain. on admission her blood pressure was quite elevated requiring IV hydralazine, however, blood pressures since improved. currently she is on amlodipine 10, losartan 100 and metoprolol 50 mg twice a day She was recently seen in outpatient office for poorly controlled hypertension. She has hypertension for several years which has been poorly controlled requir ing multiple visits to ER with hypertensive urgency. Renal function has been normal with b/l cr 0.7-0.8. Recent urinalysis negative for proteinuria or significant hematuria. She has h/o diagnosis of lupus almost 20 years ago and reported to have a biopsy done for lupus nephritis at [facility] more than 10 years ago, none of those reports were available to review. She was on Plaquenil which was discontinued more than 10 years ago because of some eye complications. Ex-smoker, quit smoking in March 2020, drinks alcohol socially. Her mom and sister both has history of SLE. Workup for secondary hypertension so far unremarkable, aldosterone, renin normal. Renal artery Doppler showed no evidence of renal artery stenosis. CT abdomen pelvis in August 2020 was otherwise unremarkable with no adrenal abnormality. Generally her blood pressure is well controlled in the morning however starting mid day her blood pressure starts to go up. Has history of fibromyalgia and chronic pain syndrome, previously seen by pain management, currently she is on gabapentin 900 mg 3 times a day. has not been taking NSAIDs. Currently she continues to have persistent chest pain and very emotional and tearful. Allergies Allergy/AdvReac Type Severity Reaction Status Date / Time dexamethasone Allergy Intermediate HIVES Verified 05/16/21 16:54 latex Allergy Intermediate HIVES Verified 05/16/21 16:54 Sulfa (Sulfonamide Allergy Intermediate LUPUS Verified 05/16/21 15:49 Antibiotics) FLARE UP morphine Allergy Mild local Verified 05/16/21 16:54 reaction at site duloxetine Allergy Unknown UNKNOWN Verified 05/16/21 15:49 escitalopram Allergy Unknown UNKNOWN Verified 05/16/21 15:49 pregabalin Allergy Unknown UNKNOWN Verified 05/16/21 15:49 Home Medications Medication Instructions Recorded Confirmed Type levothyroxine 25 mcg tablet 25 mcg PO QAM 07/10/19 05/16/21 History pantoprazole 40 mg tablet,delayed 40 mg PO BID 30 Days #60 tab 08/15/20 05/16/21 Rx release baclofen 20 mg tablet 20 mg PO TID PRN #20 tab 08/30/20 05/16/21 Rx gabapentin 300 mg capsule 900 mg PO TID #30 cap 08/30/20 05/16/21 Rx amlodipine 10 mg tablet 10 mg PO QAM 10/12/20 05/16/21 History furosemide 20 mg tablet 20 mg PO DAILY #30 tab 04/17/21 05/16/21 Rx losartan 100 mg tablet 100 mg PO DAILY 04/17/21 05/16/21 History lubiprostone 24 mcg capsule 24 mcg PO BID 05/08/21 05/16/21 History (Amitiza) ondansetron HCl 4 mg tablet 4 mg PO DAILY PRN 05/08/21 05/16/21 History venlafaxine 100 mg tablet 200 mg PO DAILY 05/08/21 05/16/21 History clonidine HCl 0.1 mg tablet 0.1 mg PO DAILY PRN #30 tab 05/11/21 05/16/21 Rx metoprolol tartrate 50 mg tablet 50 mg PO BID 30 Days #60 tab 05/11/21 05/16/21 Rx oxycodone 10 mg tablet 10 mg PO TID PRN #20 tab 05/11/21 05/16/21 Rx Patient History Medical History Anxiety Chronic pain syndrome Depression Fibromyalgia Gastritis Gastroparesis History of kidney infection History of lupus anticoagulant disorder History of migraine History of multiple miscarriages History of ovarian cyst History of umbilical hernia Hypertension Hypothyroidism Intractable epigastric abdominal pain Lupus (04/04/14) Lupus nephritis Osteoarthritis Peptic ulcer disease Pleuritis (09/17/14) history of Poorly-controlled hypertension Post traumatic stress disorder Pulmonary embolism history of Surgical History H/O: hysterectomy History of tonsillectomy and adenoidectomy Hx of appendectomy Hx of cholecystectomy Port-A-Cath in place (08/29/20) Mediport Placement, Left Subclavian Vein Dr. Garcia 08/29/2020 Family History Sister SLE (systemic lupus erythematosus) Family/Other SLE (systemic lupus erythematosus) maternal side Social History Smoking Status: Former smoker Tobacco Type: Cigarettes Age Started Using Tobacco: 23; Age Quit Using Tobacco: 39; Second Hand Exposure: No; Hx Alcohol Use: No Hx Substance Use: No Preferred Language: German Communication Ability: Effective Consultative Sales Associate Required: No Beliefs That Will Affect Care: None marital status: Single Current Living Situation: Spouse Current Living Situation Comment: fiance in [place] current occupational status: employed 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 Physical Exam Constitutional: WD/WN, vitals as above well developed and well nourished; no acute distress Eyes: PERRL, conjunctivae normal, anicteric sclerae ENMT: external ear and nose normal, oropharynx normal Ears: no hearing impairment Neck: trachea midline Respiratory: normal respiratory effort, lungs clear to auscultation no c ough Auscultation: no crackles, no rales and no wheezes Cardiovascular: RRR, no murmur, no edema Gastrointestinal (Abdomen): normal bowel sounds, soft, nontender, no hepatosplenomegaly Percussion/Palpation: abdomen nontender, no guarding and abdomen not rigid Musculoskeletal: Extremities: extremities normal to inspection Gait: normal gait Skin: no rashes, warm and dry Neurologic: moves all extremities and awake Psychiatric: A+Ox3, euthymic affect Results & Data ([facility]) Vital Signs (Past 12 Hours) Vital Signs Temp Pulse Pulse Resp BP BP Pulse Ox 05/17/21 09:56 60 05/17/21 07:00 36.7 C 61 18 114/72 96 05/17/21 03:58 36.6 C 60 18 132/82 96 05/17/21 01:50 54 L 05/16/21 23:52 36.8 C 54 L 18 156/93 H 96 PG Care Time/CCT Total # of Minutes Spent Total Time Spent with Patient: Total time spent is greater than 50% in coordination of care (as documented) at patient's floor/unit and/or counseling patient: Coding Level of Care Code 96805 Inpt Consult Level 4 Diagnoses Hypertensive urgency I16.0 Left-sided chest pain R07.9 Stress-induced cardiomyopathy I51.81
[2021-05-17] MEDS: BACLOFEN 20 MG TAB PO PRN (13:35)
--- NOTE | 2021-05-17 16:40 | XCELERA ---
[id number]
--- NOTE | 2021-05-17 18:51 | Hospitalist Progress Note ---
Date of Service May 17, 2021 Assessment & Plan (1) Hypertensive urgency: Plan: Adjusted nitro paste to Imdur. Presently stable. 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 Troponins negative. No CAD on recent cath. ?coronary artery spasms. - Resolved. (4) Abnormal LFTs: Plan: Unclear cause, will trend. They were also more elevated post operatively after her port placement but appear to trend back to normal. ?secondary to hypertension (although this doesn't match up to what happened in August). ?iatrogenic. - Mildly improving/stable. Monitor. (5) Stress-induced cardiomyopathy: Plan: On recent hospitalization Repeat limited echo on 05/17 with EF 60 - 65%. Plan: VTE Prophylaxis - low risk Diet - heart healthy Disposition - observation status to med/tele Admission and Anticipated Discharge Date Admission Date: May 16, 2021 Subjective Reports her pain has been under control since she received Ativan + oxycodone in the morning. Reports her pain is returning on my interview. Physical Exam Constitutional: WD/WN, vitals as above Eyes: EOM intact bilaterally; no conjunctival abnormality ENMT: external ear and nose normal, oropharynx normal Neck: trachea midline, no thyromegaly normal visual inspection Respiratory: normal respiratory effort, lungs clear to auscultation no respiratory distress Cardiovascular: RRR, no murmur, no edema Gastrointestinal (Abdomen): Inspection/Auscultation: abdomen normal to inspection; abdomen not distended Musculoskeletal: no cyanosis or clubbing, extremities motor strength 5/5 Skin: no rashes, warm and dry Neurologic: moves all extremities and awake Psychiatric: Orientation: alert, oriented to person and cooperative Results & Data Results & Data ([facility]) Vital Signs (Past 12 Hours) Vital Signs Temp Pulse Pulse Resp BP Pulse Ox 05/17/21 15:41 36.9 C 56 L 18 155/84 H 92 05/17/21 11:00 36.8 C 60 18 151/90 H 96 05/17/21 10:31 133/77 05/17/21 09:56 60 05/17/21 07:00 36.7 C 61 18 114/72 96 PG Care Time/CCT Total # of Minutes Spent Total Time Spent with Patient: Total time spent is greater than 50% in coordination of care (as documented) at patient's floor/unit and/or counseling patient: Coding Level of Care Code 53547 Subseq Hosp Care Lvl 2 Diagnoses Hypertensive urgency I16.0 Left-sided chest pain R07.9 Abnormal ECG R94.31 Abnormal LFTs R94.5 Stress-induced cardiomyopathy I51.81
--- NOTE | 2021-05-17 21:42 | Electrocardiogram Report ---
Test Reason : Blood Pressure : / mmHG Vent. Rate : 061 BPM Atrial Rate : 061 BPM P-R Int : 148 ms QRS Dur : 092 ms QT Int : 448 ms P-R-T Axes : 037 029 123 degrees QTc Int : 450 ms Normal sinus rhythm Possible Left atrial enlargement Abnormal ECG When compared with ECG of 09-MAY-2021 10:53, ST now depressed in Lateral leads T wave inversion now evident in Anterior leads Confirmed by Justin Arteaga ([id number]) on 05/17/2021 9:42:31 PM Referred By: REFERRED SELF Confirmed By:Justin Arteaga
[2021-05-18] MEDS: LORazepam 1 MG TAB PO PRN ×3 (01:02→14:25)
[2021-05-18] MEDS: oxyCODONE HCL IR 5 MG TAB (IMMEDIATE RELEASE) PO PRN ×2 (01:03→09:06)
[2021-05-18] MEDS: KETOROLAC TROMETHAMINE 15 MG/ML VIAL IV PRN ×2 (04:42→11:48)
[2021-05-18] MEDS: MoRPHine SULFATE 2 MG/ML CARP IV PRN ×3 (04:42→15:47)
[2021-05-18] MEDS: LEVOTHYROXINE SODIUM 25 MCG TABLET PO SCH (06:23)
[2021-05-18] MEDS: LOSARTAN POTASSIUM 50 MG TAB PO SCH (07:54)
[2021-05-18] MEDS: VENLAFAXINE HCL 50 MG TAB PO SCH (07:55)
[2021-05-18] MEDS: FUROSEMIDE 20 MG TAB PO SCH (07:55)
[2021-05-18] MEDS: GABAPENTIN 300 MG CAP PO SCH ×2 (07:55→13:19)
[2021-05-18] MEDS: amLODIPine BESYLATE 5 MG TAB PO SCH (07:56)
[2021-05-18] MEDS: METOPROLOL TARTRATE 50 MG TAB PO SCH (07:56)
[2021-05-18] MEDS: LUBIPROSTONE 8 MCG CAP PO SCH (07:56)
[2021-05-18] MEDS: PANTOprazole 40 MG TAB PO SCH (07:57)
[2021-05-18 08:37] LABS: Hematocrit (blood only) 36.8 % (37-47); Hemoglobin 12.7 g/dL (12.0-16.0); Mean Corpuscular Hemoglobin 31.8 pg (25-34); Mean Corpuscular Hgb Conc 34.5 g/dL (32-36); Mean Platelet Volume 10.5 fL (7.4-10.4); Platelet Count 207 K/uL (130-400); RDW Coefficient of Variation 12.6 % (11.5-14.5); RDW Standard Deviation 42.5 fL (36.4-46.3); White Blood Count 5.84 K/uL (4.8-10.8)
[2021-05-18] MEDS ORDERED: ISOSORBIDE MONO EXTENDED REL 30 MG TABCR PO SCH (09:00)
[2021-05-18 09:15] LABS: Albumin Level 3.1 gm/dl (3.4-5.0); Bilirubin,Total 0.4 mg/dl (0.2-1); Calcium 8.1 mg/dl (8.5-10.1); Creatinine Clr Calc Pharmacy 93.8 ml/min; Est GFR (African American) 82.6 ml/min; Est GFR (Non-African American) 71.3 ml/min; Globulin 3.2 gm/dl (2.5-4.0); Magnesium 1.9 mg/dl (1.8-2.4); Potassium 4.4 mmol/L (3.5-5.1); Total Protein 6.3 gm/dl (6.4-8.2)
--- NOTE | 2021-05-18 21:08 | Discharge Summary ---
Date of Service May 18, 2021 Admission HPI Per Admitting Provider Danuta Rader is a 40 year old female with lupus who presents to the ER with chest pain. This is the same pain she was given that was getting better on her prior admission from May 08-2020. On that occasion she did have a troponin rise and was diagnosed with Takutsubo's which resolved the following day on echocardiogram. She reports her chest pain had mostly resolved on discharge. She felt well on Thursday and Thursday. However on Thursday when she woke up she had severe 10/10 pain again. Aching pain but beats the same time as her heart, left side of her chest without radiation. Hit her like "a ton of bricks". She reports this chest pain is new since last admission. She previously suffered from chronic abdominal pain with extensive workup and she is under a [facility] specialist with suspected motility disorder. She reports she just lives with the abdominal pain now. She also has fibromyalgia however this pain is not muscular and no worse on palpation and she feels is is different to her fibromyalgia pain. She does report previously using chronic prescribed opiates and benzodiazepines but weaned herself off 5 years ago. She is currently not taking anything for her lupus but also has no definitive lupus symptoms a the present time. Prior use of Plaquenil caused "eye problems"; presumably retinopathy. She has an appointment with rheumatology but that is months out. Her GI motility issues are possible thought to be secondary to lupus although inflammatory markers were normal when she was having problems in July. She is under nephrology for her uncontrolled hypertension. It looks like she has had most of the tests ordered at her last visit but I do not see the results of serum/urine metanephrines. US renal artery doppler was normal last visit as is her renin aldosterone levels. In the ER she is currently having 9/10 severity chest pain but improved from when she first came in after morphine was given. She was referred to medicine for admission and ongoing management of chest pain, hypertensive urgency and abnormal EKG changes. Principal Diagnosis Chest pain NOS -> Possibly MSK vs. visceral hypersensitivity vs a central pain syndrome Hypertension Discharge Exam Constitutional WD/WN, vitals as above Eyes EOM intact bilaterally; no conjunctival abnormality ENMT external ear and nose normal, oropharynx normal Neck trachea midline, no thyromegaly normal visual inspection Respiratory normal respiratory effort, lungs clear to auscultation no respiratory distress Cardiovascular RRR, no murmur, no edema Gastrointestinal (Abdomen) Inspection/Auscultation: abdomen normal to inspection; abdomen not distended Musculoskeletal no cyanosis or clubbing, extremities motor strength 5/5 Skin no rashes, warm and dry Neurologic moves all extremities and awake Psychiatric Orientation: alert, oriented to person and cooperative Discharge Data Allergies Allergy/AdvReac Type Severity Reaction Status Date / Time dexamethasone Allergy Intermediate HIVES Verified 05/16/21 16:54 latex Allergy Intermediate HIVES Verified 05/16/21 16:54 Sulfa (Sulfonamide Allergy Intermediate LUPUS Verified 05/16/21 15:49 Antibiotics) FLARE UP morphine Allergy Mild local Verified 05/16/21 16:54 reaction at site duloxetine Allergy Unknown UNKNOWN Verified 05/16/21 15:49 escitalopram Allergy Unknown UNKNOWN Verified 05/16/21 15:49 pregabalin Allergy Unknown UNKNOWN Verified 05/16/21 15:49 Consultations 05/16/21 14:59 ED Decision to Admit Stat 05/17/21 08:16 Consult Nephrology Routine Hospital Course (1) Hypertensive urgency: Patient has consistently come in with BPs in the 200/120 range experiencing chest and/or abdominal pain. Ms. Rader reports compliance with her hypertension regimen and relates the series of events as extreme pain causing high blood pressure and sometimes confusion. However, in the hospital, her blood pressure ranges from 100/60 to 125/85 on her home regimen of amlodipine 10 mg PO daily, furosemide 20 mg PO daily, losartan 100 mg PO daily, and metoprolol tartrate 50 mg PO BID. While this is a fairly intensive regimen for a 40 year-old, she has had extensive work-up of secondary causes of HTN with none found so far. (MAYRA, renin:aldosterone, no significant CKD, hyperaldosteronism). Urine metanephrines done this admission with results pending. Sleep apnea could be playing a role given her BMI; however, one would imagine this would continue to manifest in the hospital as she is not provided CPAP while inpatient. Given the well-controlled BP in the hospital (on meds she reports taking at home), I must posit that she is either not taking her HTN medications as she says or that she is using some other substance that raises her blood pressure. She denies any illicit drug use. She does use medical marijuana. Literature suggests a mild increase in SBP with cannabis use. (https://www.ncbi.nlm.nih.gov/pmc/articles/SWU4493451/). On the day of discharge, I told the patient about my unwillingness to continue narcotic pain medications for her (see below). As she reported to me multiple times, she feels her pain escalates which causes her blood pressure to go high and causes confusion. I did offer her continued admission in the hospital to monitor her heart rate, blood pressure, and mental status (for another 24 hours or so). She declined this offer, saying that if she was going to be in pain, she could do it at home. I did try to re-iterate the offer of continued medical monitoring, but she preferred to be discharged. (2) Left-sided chest pain: She initially presented with chest pain on 05/08/2021 when she also had a blood pressure of 210/150. That admission, she had a troponin as high as 0.47. Due to ongoing chest pain and new cardiomyopathy, she had a LHC on 05/09/2021 which showed no coronary artery disease. She had continued pain and was eventually discharged on a short course of oxycodone 10 mg TID PRN. She filled this script on her day of discharge (05/11/2021). She was re-admitted on 05/16/2021 with recurrent chest pain (sent from her PCP's office). She told me that she had run out of oxycodone despite being given a 7-day supply and only having been out of the hospital for 5 days. This admission, her troponins remained negative, and her echo revealed a normal EF. The pain remained largely at a 7/10 during her admission, relieved only for an hour or two after narcotic pain medications were administered. Given the continued pain without troponin elevation, echocardiogram changes, or ischemic EKG changes, I felt this was unlikely to be cardiac in nature. Dr. Parul Doty ([facility]) posited in an office visit on 04/11/2021 that her abdominal pain is related to visceral hypersensitivity which could explain her chest pain as well. Other explanations could be costochondritis, trigger point pain, or a central pain syndrome. None of these should be treated with long-term opioids. I had a discussion with Ms. Rader on why I did not feel continued opioids were appropriate for her pain. The reasons included the complications of short and long-term opioid use, that opioids were not appropriate treatment for any of the listed diagnoses, and the inability to continue opioid treatment out of the hospital in any event as Dr. Adame ([facility] resident), Dr. Doty, and [facility] had all declined to provide chronic narcotics. She expressed the belief that Dr. Adame would re-consult [facility], and that they might provide chronic opioids for her new chest pain. I explained that from my reading of Dr. Adame's note from the office that this was not the case and that [facility] was not likely to provide further opioids for her. I discussed with her all modalities I know of to treat her ongoing, chronic chest pain including Tylenol (within bottle limits), topicals (diclofenac, lidocaine patches, or capsaicin cream), meditation, biofeedback, and acupunct ure. She was not interested in any of these modalities, reporting she had tried most of them and felt they were not beneficial or were impractical for her life. She was interested in methadone as a possible pain medication. She knew of one location in [place] that may provide a methadone clinic, and I found another and provided that information to her. (3) Stress-induced cardiomyopathy: Found on recent hospitalization from 05/08/2021. Lowest EF was 40 - 45% with akinesis of the apex and mid anterior/anteroseptal/septal tan. EF quickly recovered and by 05/10 it was already 55 - 60%. - Repeat limited echo on 05/17 with EF 60 - 65%. - Possibly due to hypertension. Alternative explanations could be opioid withdrawal (https://www.ncbi.nlm.nih.gov/pmc/articles/NSU5797905/) or other substance such as Kratom (https://journals.[employer].com/doi/full/10.1177/03669404490479604). (4) Abnormal ECG: TWI in anterolateral leads. Troponins negative. No CAD on recent cath. - Resolved. (5) Abnormal LFTs: Unclear cause. AST/ALT peaked at 140 and downtrended from there. Possibly due to hypertension vs. other medications (Tylenol) though she denied Tylenol use at home. - Mildly improving/stable. Monitor. I do truly believe Ms. Rader is having pain, but on my repeated conversations with her, her main interest is in continuing oxycodone for her pain. As clearly stated above, I do not think that inpatient or outpatient opioids are an appropriate treatment for her chronic abdominal and (newer) chest pain. I did offer continued hospital admission to monitor her vital signs & mental status and attempt to control the her pain with non-narcotic medications and techniques, but she declined and requested discharge. Given her stability, I felt this was acceptable and discharged her from the hospital. Total Time Total Time Spent Total Time Spent (In Minutes): 60 Discharge Plan Discharge Items Patient Disposition: Home - Self-Care Reason For Visit: CHEST PAIN Discharge Diagnosis: Non-cardiac chest pain Activity: Resume your previous activity Non-emergency contact: Primary Care Provider Call non-emergency contact if: you have any medication questions Follow-up/Referrals: Matt Adame DO [Primary Care Provider] - Diet: Regular Addtl Attending Provider Instructions: Ms. Rader, You were admitted to the hospital with chest pain. We did an ultrasound of your heart which showed that your heart has fully recovered from the prior admission. Lab tests indicated that you did not suffer any damage to your heart. We do not think the chest pain you are experiencing is cardiac in nature. It may be a combination of musculoskeletal pain and visceral hypersensitivity. We have not found an organic cause for your chest pain at this time. Your have had a significant work-up for your abdominal pain as well, and apart from gastris, the clinicians at [facility] and [facility] have not found other causes for your pain. When you were previously in the hospital, you were given oxycodone and then discharge with a short supply of this. You discussed to me that this is the only medication that you felt helped your pain. I want to emphasize that I believe you are in pain. However, after reviewing the notes from Dr. Adame, Dr. Doty, and the doctors at [facility], I do not see an outpatient provider who presently is willing or able to manage this medication long-term. We did discuss the other modalities of pain management including Tylenol, topicals (diclofenac, lidocaine patches, or capsaicin cream), meditation, biofeedback, and acupuncture. The one option that we discussed that seemed of interest was methadone. The [facility] in [place] has pain management services that may be able to provide this. [facility] also has a location in [place]. You can request admission to their programs at [email or web address] I do hope you get the help that you need and are able to improve your pain. Pending Studies at Discharge: No Stand-Alone Forms: My [facility], Smoking Cessation Medications and DC Order Prescriptions: Continued losartan 100 mg tablet 100 mg PO DAILY RF: 0 furosemide 20 mg tablet 20 mg PO DAILY Qty: 30 RF: 2 baclofen 20 mg Tablet 20 mg PO TID PRN (Reason: abdominal pian) Qty: 20 RF: 0 gabapentin 300 mg Capsule 900 mg PO TID Qty: 30 RF: 0 levothyroxine 25 mcg tablet 25 mcg PO QAM RF: 0 pantoprazole 40 mg tablet,delayed release (DR/EC) 40 mg PO BID 30 Days Qty: 60 RF: 1 amlodipine 10 mg tablet 10 mg PO QAM RF: 0 ondansetron HCl 4 mg tablet 4 mg PO DAILY PRN (Reason: Nausea And Vomiting) RF: 0 lubiprostone [Amitiza] 24 mcg capsule 24 mcg PO BID RF: 0 venlafaxine 100 mg tablet 200 mg PO DAILY RF: 0 clonidine HCl 0.1 mg Tablet 0.1 mg PO DAILY PRN (Reason: Systolic BP at or above 180) Qty: 30 RF: 0 metoprolol tartrate 50 mg Tablet 50 mg PO BID 30 Days Qty: 60 RF: 0 Discontinued oxycodone 10 mg tablet 10 mg PO TID PRN (Reason: pain) Qty: 20 RF: 0 Discharge Orders: Discharge Order (Routine); Ordered 05/18/21 Ordered By: Jose Varela Admission Data Admit Date/Time: 05/16/21 15:31 Attending Provider: Jose Varela Admit Provider: Hung Botello Primary Care Provider: Matt Adame Other Providers: Jose Varela ; Janee Adkins Other Interventions: Discharge Summary Assessment (RN) Last Done: 05/18/21 17:18 Coding Level of Care Code 27096 OBS Care - Discharge Diagnoses Hypertensive urgency I16.0 Left-sided chest pain R07.9 Abnormal ECG R94.31 Abnormal LFTs R94.5 Stress-induced cardiomyopathy I51.81
[2021-05-21 12:20] LABS: Anti Nuclear Antibody Screen POSITIVE (NEGATIVE); Sm Antibody <1.0 NEG AI (<1.0 NEG)
[2021-05-22 19:42] LABS: Metanephrine, Plasma <25 pg/mL (<=57); Normetanephrine Plasma 29 pg/mL (<=148); Total Metanephrine Plasma 29 pg/mL (<=205)
[2021-05-23 08:31] LABS: Normetanephrine, Ur 46 mcg/24 h (88-649); Total Metanephrine 76 mcg/24 h (182-739)
== END 2021-05-18 18:30 | disposition home or self-care (01) ==
LOC: ED 12:11 → 2N 12:11 → SUATTDRO 15:31 → 2N 16:39

== ENCOUNTER 2021-06-13 16:48 | Observation (INO) ==
--- NOTE | 2021-06-13 17:08 | Emergency Department Note ---
Impression & Plan Headache, Acute confusion, Dehydration ED Provider Note NAME: JOSUE BENJAMIN AGE: 40 SEX: F : 1980 ARRIVES VIA: Walk-In INFORMANT: Patient, ED PROVIDER(S): Michael Lopez MD Chief Complaint: Confusion HPI: Patient does present due to concern for worsening confusion associated with chest pain and leg swelling. Patient denies any fevers or chills. The patient was recently at [facility] but left AMA after she was seen by psychiatry as well as neurology. Patient does have a known history of lupus as well as PE but the patient no longer requires any blood thinning medications. Patient denies any alcohol tobacco or drug use. She is vaccinated for Covid. The patient is accompanied with her mother. Patient does complain of frontal headache that she describes as a "sledgehammer." Patient has not taken anything for this at home. No recent falls or trauma. The patient denies any numbness tingling or focal weakness. Mother is concerned about intermittent confusion and leg swelling. ROS: See HPI for pertinent positives and negatives. A total of 10 systems were reviewed and otherwise negative. Past medical history: See below Surgical history: See below Social history: See below Physical Exam: GENERAL: NAD, wearing a mask, non-toxic. EYE EXAM: Normal conjunctiva. PERRL, no anisocoria and EOM's grossly intact w/o pain. OROPHARYNX: Moist mucus membranes. Grossly normal dentition. NECK: Supple, no nuchal rigidity, no adenopathy, non-tender. No signs of meningismus. LUNGS: Clear to auscultation. Normal chest wall mechanics. HEART: NSR, no MRG. ABDOMEN: Abdomen soft, non-tender, normo-active bowel sounds, no masses, no rebound or guarding. BACK: No CVA TTP. SKIN: No rashes and no bruising. UPPER EXTREMITIES: Upper extremities are grossly normal. LOWER EXTREMITIES: Grossly normal, no edema. NEURO EXAM: Intermittently confused but awake and will follow basic commands, cranial nerves grossly intact with normal speech and no sensory or motor deficits. Differential diagnoses: Infection, dehydration, metabolic abnormality, hypo/hyperglycemia, electrolyte disturbance, anemia, hypoxia, cardiac sources, intracerebral event, toxicologic, neurologic, as well as other pathologies. Course: Patient was seen and evaluated the bedside. Full history physical exam was performed. EKG interpreted by me Please bradycardia, rate of 58, normal intervals, normal axis, no ST changes or T WI. Imaging Studies: See Below Cardiac monitoring: An order was placed for continuous cardiac monitoring. The monitor shows a rate of 65 with sinus rhythm. MDM: Patient did present due to concern for confusion. The patient does have a known history of lupus as well is depression anxiety and talk at [facility]. Patient did have blood work completed. The patient did have a CT of the head and was treated as the patient did have some mild headache. Patient is a normal white count with a normal hemoglobin. Platelet count is unremarkable. Very mild hypokalemia and prerenal azotemia with hypocalcemia. Troponin is nondetectable. EKG with no signs of obvious ischemia. Urinalysis does show questionable infection as she has bacteria but does have numerous epithelial cells. Given the patient's confusion will treat with Rocephin. Patient did have a UDS Tylenol salicylate and talk screen completed which was unremarkable with exception of benzos which the patient does take. Covid negative. Chest x-ray clear. I did speak with the on-call hospitalist Dr. Hairston and the patient was admitted to the medicine service. Past Med/Surg History Medical History Abdominal pain (10/10/14) Abdominal pain Anxiety Chest pain Chronic pain syndrome Depression Fibromyalgia Gastritis Gastroparesis Headache History of kidney infection History of lupus History of lupus anticoagulant disorder History of migraine History of multiple miscarriages History of ovarian cyst History of umbilical hernia Hypertension Hypertensive urgency Hypothyroidism Intractable epigastric abdominal pain Lupus (04/04/14) Lupus nephritis Osteoarthritis Peptic ulcer disease Pleuritis (09/17/14) history of Poorly-controlled hypertension Post traumatic stress disorder Pulmonary embolism history of Surgical History H/O: hysterectomy History of tonsillectomy and adenoidectomy Hx of appendectomy Hx of cholecystectomy Port-A-Cath in place (08/29/20) Mediport Placement, Left Subclavian Vein Dr. Garcia 08/29/2020 Family History Sister SLE (systemic lupus erythematosus) Family/Other SLE (systemic lupus erythematosus) maternal side Social History Smoking Status: Never smoker Tobacco Type: Cigarettes Age Started Using Tobacco: 23; Age Quit Using Tobacco: 39; Second Hand Exposure: No; Hx Alcohol Use: No Hx Substance Use: No Preferred Language: Nicaraguan Communication Ability: Effective Acid Filler Required: No Beliefs That Will Affect Care: None marital status: fiance. Current Living Situation: Spouse Current Living Situation Comment: fiance in [place] current occupational status: employed current occupation: works at [employer] for ex[employer] How many Children do You have: 2 Feels Safe at Home: Yes Assistive Devices: None Allergies Allergies Allergy/AdvReac Type Severity Reaction Status Date / Time dexamethasone Allergy Intermediate HIVES Verified 06/13/21 17:40 latex Allergy Intermediate HIVES Verified 06/13/21 17:40 pregabalin Allergy Intermediate FACE AND Verified 06/13/21 17:40 LIPS SWELLED Sulfa (Sulfonamide Allergy Intermediate LUPUS Verified 06/13/21 17:40 Antibiotics) FLARE UP morphine Allergy Mild local Verified 06/13/21 17:40 reaction at site duloxetine AdvReac Intermediate SEROTONIN Verified 06/13/21 17:40 SYNDROME escitalopram AdvReac Intermediate WENT CRAZY Verified 06/13/21 17:40 sertraline [From Zoloft] AdvReac Intermediate WENT CRAZY Verified 06/13/21 17:40 Home Meds Home Medications Medication Instructions Recorded Confirmed levothyroxine 25 mcg tablet 25 mcg PO QAM 07/10/19 06/13/21 amlodipine 10 mg tablet 10 mg PO QAM 10/12/20 06/13/21 losartan 100 mg tablet 100 mg PO DAILY 04/17/21 06/13/21 lubiprostone 24 mcg capsule 24 mcg PO BID 05/08/21 06/13/21 (Amitiza) ondansetron HCl 4 mg tablet 4 mg PO DAILY PRN 05/08/21 06/13/21 alprazolam 1 mg tablet 1 mg PO TID PRN 06/13/21 06/13/21 fluoxetine 20 mg capsule 20 mg PO DAILY 06/13/21 06/13/21 Previous Rx's Medication Instructions Recorded pantoprazole 40 mg tablet,delayed 40 mg PO BID 30 Days #60 tab 08/15/20 release baclofen 20 mg tablet 20 mg PO TID PRN #20 tab 08/30/20 gabapentin 300 mg capsule 900 mg PO TID #30 cap 08/30/20 furosemide 20 mg tablet 20 mg PO DAILY #30 tab 04/17/21 clonidine HCl 0.1 mg tablet 0.1 mg PO DAILY PRN #30 tab 05/11/21 Results & Data (ED) Vital Signs Vital Signs - 24 hr 06/13/21 16:57 06/13/21 18:02 06/13/21 18:03 Temperature 36.6 C Temperature Source Oral Pulse Rate 65 62 Pulse Rate [Finger] 62 Pulse Rhythm Regular Pulse Rhythm [Finger] Regular Pulse Strength [Finger] Normal Respiratory Rate 18 16 16 Respiratory Effort / Characteristics Non-Labored Respiratory Depth Normal Respiratory Pattern Regular Blood Pressure 181/103 H Blood Pressure [Right Arm] 140/82 Blood Pressure Mean 129 Blood Pressure Mean [Right Arm] 101 Blood Pressure Position [Right Arm] Lying Pulse Oximetry 100 98 99 Oxygen Delivery Method Room Air Room Air Room Air Sepsis Recent Fever Within 48 Hours No Sepsis New/Unexplained Change in Mental Status No Sepsis Action Taken by Nursing No Action Required 06/13/21 19:16 06/13/21 21:00 Temperature Temperature Source Pulse Rate Pulse Rate [Finger] 63 69 Pulse Rhythm Pulse Rhythm [Finger] Regular Pulse Strength [Finger] Normal Respiratory Rate 17 16 Respiratory Effort / Characteristics Non-Labored Respiratory Depth Normal Respiratory Pattern Regular Blood Pressure Blood Pressure [Right Arm] 135/75 138/83 Blood Pressure Mean Blood Pressure Mean [Right Arm] 95 101 Blood Pressure Position [Right Arm] Pulse Oximetry 98 97 Oxygen Delivery Method Room Air Room Air Sepsis Recent Fever Within 48 Hours Sepsis New/Unexplained Change in Mental Status Sepsis Action Taken by [facility] Medications Current Medication List: was personally reviewed by me Laboratory Data Attestation: I reviewed the patient's lab results. Result diagrams: 06/13/21 18:36 06/13/21 18:36 Lab Results 06/13/21 06/13/21 06/13/21 Range/Units 17:55 17:55 17:55 WBC (4.8-10.8) K/uL RBC (4.2-5.4) M/uL Hgb (12.0-16.0) g/dL Hct (37-47) % MCV (80-100) fL MCH (25-34) pg MCHC (32-36) g/dL RDW Std Deviation (36.4-46.3) fL RDW Coeff of Meg (11.5-14.5) % Plt Count (130-400) K/uL MPV (7.4-10.4) fL Immature Gran % (Auto) % Neut % (Auto) % Lymph % (Auto) % Robertson % (Auto) % Eos % (Auto) % Baso % (Auto) % Neut # (Auto) (1.4-6.5) K/uL Lymph # (Auto) (1.2-3.4) K/uL Robertson # (Auto) (0.11-0.59) K/uL Eos # (Auto) (0-0.5) K/uL Baso # (Auto) (0-0.2) K/uL Immature Gran # (Auto) (0.00-0.02) K/uL PT (9.0-12.0) Seconds INR (0.9-1.1) Sodium (136-145) mmol/L Potassium (3.5-5.1) mmol/L Chloride (98-107) mmol/L Carbon Dioxide (21-32) mmol/L Anion Gap (3-11) BUN (7-18) mg/dl Creatinine (0.6-1.2) mg/dl Est Cr Clr Drug Dosing ml/min Est GFR ( Amer) ml/min Est GFR (Non-Af Amer) ml/min BUN/Creatinine Ratio (10-20) Glucose (70-99) mg/dl Calcium (8.5-10.1) mg/dl Magnesium (1.8-2.4) mg/dl Total Bilirubin (0.2-1) mg/dl AST (15-37) U/L ALT (12-78) U/L Alkaline Phosphatase (45-117) U/L Troponin I (0-0.045) ng/ml Total Protein (6.4-8.2) gm/dl Albumin (3.4-5.0) gm/dl Globulin (2.5-4.0) gm/dl Albumin/Globulin Ratio (0.9-2) TSH (0.300-4.500) uIu/ml Urine Color Yellow Urine Appearance Clear (Clear) Urine pH 7.0 (4.5-7.5) Ur Specific Rincon 1.022 (1.000-1.030) Urine Protein Negative (Negative) Urine Glucose (UA) Negative (Negative) Urine Ketones Negative (Negative) Urine Blood Trace H (Negative) Urine Nitrite Negative (Negative) Urine Bilirubin Negative (Negative) Urine Urobilinogen Negative (Negative) Ur Leukocyte Esterase Negative (Negative) Urine WBC (Auto) 5-10 H (0-5) /hpf Urine RBC (Auto) 0-4 (0-4) /hpf U Hyaline Cast (Auto) 1-5 (0-5) /lpf U Epithel Cells (Auto) >30 H (0-5) /lpf Urine Bacteria (Auto) 2+ H (Negative) Urine Test Negative (Negative) Salicylates (2.8-20) mg/dl Urine Opiates Screen Neg (Neg) Ur Methadone, Qual Neg (Neg) Acetaminophen (10-30) ug/ml Urine Barbiturates Neg (Neg) Ur Phencyclidine (PCP) Neg (Neg) U Amphetamin/Meth Scrn Neg (Neg) MDMA (Ecstasy) Screen Neg (Neg) U Benzodiazepines Scrn Pos H (Neg) Ur Cocaine Metabolite Neg (Neg) U Marijuana (THC) Screen Neg (Neg) Ethyl Alcohol mg/dL (0-3) mg/dl COVID-19 Eval Order SARS-CoV-2 (PCR) (Negative) 06/13/21 06/13/21 06/13/21 Range/Units 18:04 18:04 18:36 WBC (4.8-10.8) K/uL RBC (4.2-5.4) M/uL Hgb (12.0-16.0) g/dL Hct (37-47) % MCV (80-100) fL MCH (25-34) pg MCHC (32-36) g/dL RDW Std Deviation (36.4-46.3) fL RDW Coeff of Meg (11.5-14.5) % Plt Count (130-400) K/uL MPV (7.4-10.4) fL Immature Gran % (Auto) % Neut % (Auto) % Lymph % (Auto) % Robertson % (Auto) % Eos % (Auto) % Baso % (Auto) % Neut # (Auto) (1.4-6.5) K/uL Lymph # (Auto) (1.2-3.4) K/uL Robertson # (Auto) (0.11-0.59) K/uL Eos # (Auto) (0-0.5) K/uL Baso # (Auto) (0-0.2) K/uL Immature Gran # (Auto) (0.00-0.02) K/uL PT 10.8 (9.0-12.0) Seconds INR 1.1 (0.9-1.1) Sodium (136-145) mmol/L Potassium (3.5-5.1) mmol/L Chloride (98-107) mmol/L Carbon Dioxide (21-32) mmol/L Anion Gap (3-11) BUN (7-18) mg/dl Creatinine (0.6-1.2) mg/dl Est Cr Clr Drug Dosing ml/min Est GFR ( Amer) ml/min Est GFR (Non-Af Amer) ml/min BUN/Creatinine Ratio (10-20) Glucose (70-99) mg/dl Calcium (8.5-10.1) mg/dl Magnesium (1.8-2.4) mg/dl Total Bilirubin (0.2-1) mg/dl AST (15-37) U/L ALT (12-78) U/L Alkaline Phosphatase (45-117) U/L Troponin I (0-0.045) ng/ml Total Protein (6.4-8.2) gm/dl Albumin (3.4-5.0) gm/dl Globulin (2.5-4.0) gm/dl Albumin/Globulin Ratio (0.9-2) TSH (0.300-4.500) uIu/ml Urine Color Urine Appearance (Clear) Urine pH (4.5-7.5) Ur Specific Rincon (1.000-1.030) Urine Protein (Negative) Urine Glucose (UA) (Negative) Urine Ketones (Negative) Urine Blood (Negative) Urine Nitrite (Negative) Urine Bilirubin (Negative) Urine Urobilinogen (Negative) Ur Leukocyte Esterase (Negative) Urine WBC (Auto) (0-5) /hpf Urine RBC (Auto) (0-4) /hpf U Hyaline Cast (Auto) (0-5) /lpf U Epithel Cells (Auto) (0-5) /lpf Urine Bacteria (Auto) (Negative) Urine Test (Negative) Salicylates (2.8-20) mg/dl Urine Opiates Screen (Neg) Ur Methadone, Qual (Neg) Acetaminophen (10-30) ug/ml Urine Barbiturates (Neg) Ur Phencyclidine (PCP) (Neg) U Amphetamin/Meth Scrn (Neg) MDMA (Ecstasy) Screen (Neg) U Benzodiazepines Scrn (Neg) Ur Cocaine Metabolite (Neg) U Marijuana (THC) Screen (Neg) Ethyl Alcohol mg/dL (0-3) mg/dl COVID-19 Eval Order Covid19 at [facility] SARS-CoV-2 (PCR) NEGATIVE (Negative) 06/13/21 06/13/21 06/13/21 Range/Units 18:36 18:36 18:36 WBC 5.62 (4.8-10.8) K/uL RBC 3.95 L (4.2-5.4) M/uL Hgb 12.4 (12.0-16.0) g/dL Hct 35.8 L (37-47) % MCV 90.6 (80-100) fL MCH 31.4 (25-34) pg MCHC 34.6 (32-36) g/dL RDW Std Deviation 42.7 (36.4-46.3) fL RDW Coeff of Meg 12.9 (11.5-14.5) % Plt Count 194 (130-400) K/uL MPV 9.9 (7.4-10.4) fL Immature Gran % (Auto) 0.2 % Neut % (Auto) 61.2 % Lymph % (Auto) 30.2 % Robertson % (Auto) 6.2 % Eos % (Auto) 1.8 % Baso % (Auto) 0.4 % Neut # (Auto) 3.44 (1.4-6.5) K/uL Lymph # (Auto) 1.70 (1.2-3.4) K/uL Robertson # (Auto) 0.35 (0.11-0.59) K/uL Eos # (Auto) 0.10 (0-0.5) K/uL Baso # (Auto) 0.02 (0-0.2) K/uL Immature Gran # (Auto) 0.01 (0.00-0.02) K/uL PT (9.0-12.0) Seconds INR (0.9-1.1) Sodium 139 (136-145) mmol/L Potassium 3.4 L (3.5-5.1) mmol/L Chloride 111 H (98-107) mmol/L Carbon Dioxide 21 (21-32) mmol/L Anion Gap 7.0 (3-11) BUN 22 H (7-18) mg/dl Creatinine 0.73 (0.6-1.2) mg/dl Est Cr Clr Drug Dosing 128.0 ml/min Est GFR ( Amer) 119.4 ml/min Est GFR (Non-Af Amer) 103.0 ml/min BUN/Creatinine Ratio 30.1 H (10-20) Glucose 86 (70-99) mg/dl Calcium 8.2 L (8.5-10.1) mg/dl Magnesium 2.2 (1.8-2.4) mg/dl Total Bilirubin 0.7 (0.2-1) mg/dl AST 28 (15-37) U/L ALT 39 (12-78) U/L Alkaline Phosphatase 55 (45-117) U/L Troponin I < 0.015 (0-0.045) ng/ml Total Protein 6.5 (6.4-8.2) gm/dl Albumin 3.2 L (3.4-5.0) gm/dl Globulin 3.3 (2.5-4.0) gm/dl Albumin/Globulin Ratio 1.0 (0.9-2) TSH 2.010 (0.300-4.500) uIu/ml Urine Color Urine Appearance (Clear) Urine pH (4.5-7.5) Ur Specific Rincon (1.000-1.030) Urine Protein (Negative) Urine Glucose (UA) (Negative) Urine Ketones (Negative) Urine Blood (Negative) Urine Nitrite (Negative) Urine Bilirubin (Negative) Urine Urobilinogen (Negative) Ur Leukocyte Esterase (Negative) Urine WBC (Auto) (0-5) /hpf Urine RBC (Auto) (0-4) /hpf U Hyaline Cast (Auto) (0-5) /lpf U Epithel Cells (Auto) (0-5) /lpf Urine Bacteria (Auto) (Negative) Urine Test (Negative) Salicylates < 1.7 L (2.8-20) mg/dl Urine Opiates Screen (Neg) Ur Methadone, Qual (Neg) Acetaminophen 2 L (10-30) ug/ml Urine Barbiturates (Neg) Ur Phencyclidine (PCP) (Neg) U Amphetamin/Meth Scrn (Neg) MDMA (Ecstasy) Screen (Neg) U Benzodiazepines Scrn (Neg) Ur Cocaine Metabolite (Neg) U Marijuana (THC) Screen (Neg) Ethyl Alcohol mg/dL (0-3) mg/dl COVID-19 Eval Order SARS-CoV-2 (PCR) (Negative) 06/13/21 Range/Units 18:36 WBC (4.8-10.8) K/uL RBC (4.2-5.4) M/uL Hgb (12.0-16.0) g/dL Hct (37-47) % MCV (80-100) fL MCH (25-34) pg MCHC (32-36) g/dL RDW Std Deviation (36.4-46.3) fL RDW Coeff of Meg (11.5-14.5) % Plt Count (130-400) K/uL MPV (7.4-10.4) fL Immature Gran % (Auto) % Neut % (Auto) % Lymph % (Auto) % Robertson % (Auto) % Eos % (Auto) % Baso % (Auto) % Neut # (Auto) (1.4-6.5) K/uL Lymph # (Auto) (1.2-3.4) K/uL Robertson # (Auto) (0.11-0.59) K/uL Eos # (Auto) (0-0.5) K/uL Baso # (Auto) (0-0.2) K/uL Immature Gran # (Auto) (0.00-0.02) K/uL PT (9.0-12.0) Seconds INR (0.9-1.1) Sodium (136-145) mmol/L Potassium (3.5-5.1) mmol/L Chloride (98-107) mmol/L Carbon Dioxide (21-32) mmol/L Anion Gap (3-11) BUN (7-18) mg/dl Creatinine (0.6-1.2) mg/dl Est Cr Clr Drug Dosing ml/min Est GFR ( Amer) ml/min Est GFR (Non-Af Amer) ml/min BUN/Creatinine Ratio (10-20) Glucose (70-99) mg/dl Calcium (8.5-10.1) mg/dl Magnesium (1.8-2.4) mg/dl Total Bilirubin (0.2-1) mg/dl AST (15-37) U/L ALT (12-78) U/L Alkaline Phosphatase (45-117) U/L Troponin I (0-0.045) ng/ml Total Protein (6.4-8.2) gm/dl Albumin (3.4-5.0) gm/dl Globulin (2.5-4.0) gm/dl Albumin/Globulin Ratio (0.9-2) TSH (0.300-4.500) uIu/ml Urine Color Urine Appearance (Clear) Urine pH (4.5-7.5) Ur Specific Rincon (1.000-1.030) Urine Protein (Negative) Urine Glucose (UA) (Negative) Urine Ketones (Negative) Urine Blood (Negative) Urine Nitrite (Negative) Urine Bilirubin (Negative) Urine Urobilinogen (Negative) Ur Leukocyte Esterase (Negative) Urine WBC (Auto) (0-5) /hpf Urine RBC (Auto) (0-4) /hpf U Hyaline Cast (Auto) (0-5) /lpf U Epithel Cells (Auto) (0-5) /lpf Urine Bacteria (Auto) (Negative) Urine Test (Negative) Salicylates (2.8-20) mg/dl Urine Opiates Screen (Neg) Ur Methadone, Qual (Neg) Acetaminophen (10-30) ug/ml Urine Barbiturates (Neg) Ur Phencyclidine (PCP) (Neg) U Amphetamin/Meth Scrn (Neg) MDMA (Ecstasy) Screen (Neg) U Benzodiazepines Scrn (Neg) Ur Cocaine Metabolite (Neg) U Marijuana (THC) Screen (Neg) Ethyl Alcohol mg/dL < 3.0 (0-3) mg/dl COVID-19 Eval Order SARS-CoV-2 (PCR) (Negative) Administered Medications Discontinued Medications Diphenhydramine HCl (Diphenhydramine 50 Mg/Ml Vial) 25 mg IV NOW STA Stop: 06/13/21 17:19 Last Admin: 06/13/21 18:15 Dose: 25 mg Documented by: [id number] Magnesium Sulfate/Dextrose (Magnesium Sulfate / D5w) 1 gm in 100 mls @ 100 mls/hr IV NOW ONE Stop: 06/13/21 18:17 Last Infusion: 06/13/21 19:16 Dose: 0 mls/hr Documented by: [id number] Admin: 06/13/21 18:15 Dose: 100 mls/hr Documented by: [id number] Sodium Chloride (Nss) 500 mls @ 999 mls/hr IV .Q31M THAO Stop: 06/13/21 18:00 Last Infusion: 06/13/21 19:15 Dose: 0 mls/hr Documented by: [id number] Admin: 06/13/21 18:16 Dose: 999 mls/hr Documented by: [id number] Ceftriaxone Sodium (Rocephin) 2,000 mg in 70 mls @ 140 mls/hr IV NOW STA Stop: 06/13/21 20:06 Last Infusion: 06/13/21 20:40 Dose: 0 mls/hr Documented by: [id number] Admin: 06/13/21 19:54 Dose: 140 mls/hr Documented by: [id number] Ondansetron HCl (Ondansetron Inj 2 Mg/Ml 2 Ml Vial) 4 mg IV NOW STA Stop: 06/13/21 17:19 Last Admin: 06/13/21 18:16 Dose: 4 mg Documented by: [id number] Ondansetron HCl (Ondansetron Inj 2 Mg/Ml 2 Ml Vial) 4 mg IV NOW STA Stop: 06/13/21 20:51 Last Admin: 06/13/21 21:17 Dose: 4 mg Documented by: [id number] Imaging Data Radiologist's Impression: Head CT 06/13/21 17:18 CT SCAN OF THE BRAIN WITHOUT IV CONTRAST CLINICAL HISTORY: Headache. Change in mental status. COMPARISON STUDY: CT of the brain dated 05/08/2021. TECHNIQUE: Unenhanced axial CT scan of the brain is performed from the vertex to the skull base. A dose lowering technique was utilized adhering to the principles of ALARA. CT DOSE: 537.48 mGy.cm FINDINGS: Brain parenchyma: The brain parenchyma is normal in appearance. There is no hemorrhage, mass effect, or evidence of acute territorial ischemia by CT criteria. Vogel-white matter differentiation is preserved. No extra-axial fluid collection is seen. Ventricles, sulci, cisterns: Normal in configuration. Intracranial vasculature: The visualized intracranial vasculature at the skull base is normal in appearance. Calvarium: Unremarkable. Sinuses and mastoids: A 10 mm osteoma is incidentally noted in the right frontal sinus. The visualized paranasal sinuses are otherwise clear. The mastoid air cells are well pneumatized. Orbits: The bony orbits are grossly intact. IMPRESSION: No acute intracranial abnormality. ACT 112: Negative or not required by law. Electronically signed by: Abel Aragon M.D. 06/13/2021 5:44 PM Chest X-Ray 06/13/21 17:19 SINGLE VIEW CHEST CLINICAL HISTORY: Generalized weakness FINDINGS: An AP, portable, upright chest radiograph is compared to study dated 05/16/2021 and correlated with chest CT dated 05/08/2021. A left subclavian central venous infusion port is unchanged in position. The cardiomediastinal silhouette is unremarkable. The lungs and pleural spaces are clear. No pneumothorax is seen. The bony thorax is grossly intact. Cholecystectomy clips are noted in the right upper quadrant. IMPRESSION: No active disease in the chest. ACT 112: Negative or not required by law. Electronically signed by: Abel Aragon M.D. 06/13/2021 5:32 PM Discharge Plan Visit Data Chief Complaint: Swelling/Edema to Extremity Stated Complaint: LEGS ARE SWOLLEN, CONFUSED, HEADACHE, SPEECH PROB ED Provider: Michael Lopez Discharge Problem: Headache, Acute confusion, Dehydration Patient Disposition: Admitted As Inpatient Prescriptions Prescriptions: No Action losartan 100 mg tablet 100 mg PO DAILY RF: 0 furosemide 20 mg tablet 20 mg PO DAILY Qty: 30 RF: 2 baclofen 20 mg Tablet 20 mg PO TID PRN (Reason: abdominal pian) Qty: 20 RF: 0 gabapentin 300 mg Capsule 900 mg PO TID Qty: 30 RF: 0 levothyroxine 25 mcg tablet 25 mcg PO QAM RF: 0 pantoprazole 40 mg tablet,delayed release (DR/EC) 40 mg PO BID 30 Days Qty: 60 RF: 1 amlodipine 10 mg tablet 10 mg PO QAM RF: 0 ondansetron HCl 4 mg tablet 4 mg PO DAILY PRN (Reason: Nausea And Vomiting) RF: 0 lubiprostone [Amitiza] 24 mcg capsule 24 mcg PO BID RF: 0 clonidine HCl 0.1 mg Tablet 0.1 mg PO DAILY PRN (Reason: Systolic BP at or above 180) Qty: 30 RF: 0 alprazolam 1 mg tablet 1 mg PO TID PRN (Reason: Anxiety) RF: 0 fluoxetine 20 mg capsule 20 mg PO DAILY RF: 0 Referrals Referrals: Matt Adame DO [Primary Care Provider] -
[2021-06-13] MEDS ORDERED: ONDANSETRON INJ 2 MG/ML 2 ML VIAL IV STA ×2 (17:18→20:50)
[2021-06-13] MEDS ORDERED: diphenhydrAMINE 50 MG/ML VIAL IV STA (17:18)
[2021-06-13] MEDS ORDERED: MAGNESIUM SULFATE / D5W 1 GM/100 ML BAG IV ONE (17:18)
[2021-06-13] MEDS ORDERED: SODIUM CHLORIDE 0.9% 500 ML IV SCH (17:30)
--- NOTE | 2021-06-13 17:33 | XRay Report ---
SINGLE VIEW CHEST CLINICAL HISTORY: Generalized weakness FINDINGS: An AP, portable, upright chest radiograph is compared to study dated 05/16/2021 and correlat ed with chest CT dated 05/08/2021. A left subclavian central venous infusion port is unchanged in posi tion. The cardiomediastinal silhouette is unremarkable. The lungs and pleural spaces are clear. No pn eumothorax is seen. The bony thorax is grossly intact. Cholecystectomy clips are noted in the right u pper quadrant. IMPRESSION: No active disease in the chest. ACT 112: Negative or not required by law. Electronically signed by: Abel Aragon M.D. 06/13/2021 5:32 PM
--- NOTE | 2021-06-13 17:45 | CT Scan Report ---
CT SCAN OF THE BRAIN WITHOUT IV CONTRAST CLINICAL HISTORY: Headache. Change in mental status. COMPARISON STUDY: CT of the brain dated 05/08/2021. TECHNIQUE: Unenhanced axial CT scan of the brain is performed from the vertex to the skull base. A d ose lowering technique was utilized adhering to the principles of ALARA. CT DOSE: 537.48 mGy.cm FINDINGS: Brain parenchyma: The brain parenchyma is normal in appearance. There is no hemorrhage, mass effect, or evidence of acute territorial ischemia by CT criteria. Vogel-white matter differentiation is preser renny. No extra-axial fluid collection is seen. Ventricles, sulci, cisterns: Normal in configuration. Intracranial vasculature: The visualized intracranial vasculature at the skull base is normal in appe arance. Calvarium: Unremarkable. Sinuses and mastoids: A 10 mm osteoma is incidentally noted in the right frontal sinus. The visualize d paranasal sinuses are otherwise clear. The mastoid air cells are well pneumatized. Orbits: The bony orbits are grossly intact. IMPRESSION: No acute intracranial abnormality. ACT 112: Negative or not required by law. Electronically signed by: Abel Aragon M.D. 06/13/2021 5:44 PM
[2021-06-13 18:18] LABS: Pregnancy Test, Urine Negative (Negative)
[2021-06-13 18:19] LABS: Appearance Urine Clear (Clear); Bacteria Urine Automated 2+ (Negative); Bilirubin Urine Negative (Negative); Blood Urine Trace (Negative); Color Urine Yellow; Epithelial Cell Urine Auto >30 /lpf (0-5); Glucose Urine UA Negative (Negative); Ketones Urine Negative (Negative); Leukocyte Esterase Urine Negative (Negative); Nitrite Urine Negative (Negative); Protein Urine Negative (Negative); Specific Gravity Urine 1.022 (1.000-1.030); Urobilinogen Urine Negative (Negative)
[2021-06-13 18:30] LABS: RBC Urine Automated 0-4 /hpf (0-4)
[2021-06-13 18:37] LABS: Amphetamines+Metham, Urine Neg (Neg); Barbiturates, Urine Neg (Neg); Benzodiazepine, Urine Pos (Neg); Cocaine, Urine Neg (Neg); MDMA (Ecstacy), Urine Neg (Neg); Methadone, Urine Neg (Neg); Opiate, Urine Neg (Neg); Phencyclidine, Urine Neg (Neg)
[2021-06-13 18:50] LABS: Basophils # (auto) 0.02 K/uL (0-0.2); Basophils % (auto) 0.4 %; Eosinophils % (auto) 1.8 %; Hematocrit (blood only) 35.8 % (37-47); Hemoglobin 12.4 g/dL (12.0-16.0); Immature Granulocytes # (auto) 0.01 K/uL (0.00-0.02); Immature Granulocytes % (auto) 0.2 %; Lymphocytes % (auto) 30.2 %; Mean Corpuscular Hemoglobin 31.4 pg (25-34); Mean Corpuscular Hgb Conc 34.6 g/dL (32-36); Mean Corpuscular Volume 90.6 fL (80-100); Mean Platelet Volume 9.9 fL (7.4-10.4); Monocytes # (auto) 0.35 K/uL (0.11-0.59); Monocytes % (auto) 6.2 %; Neutrophils # (auto) 3.44 K/uL (1.4-6.5); Neutrophils % (auto) 61.2 %; Platelet Count 194 K/uL (130-400); RDW Coefficient of Variation 12.9 % (11.5-14.5); RDW Standard Deviation 42.7 fL (36.4-46.3); Red Blood Count 3.95 M/uL (4.2-5.4); White Blood Count 5.62 K/uL (4.8-10.8)
[2021-06-13 19:04] LABS: INR 1.1 (0.9-1.1); Prothrombin Time 10.8 Seconds (9.0-12.0)
[2021-06-13] MEDS ORDERED: cefTRIAXone SODIUM 2,000 MG/70 ML BAG IV STA (19:37)
[2021-06-13 19:45] LABS: Acetaminophen 2 ug/ml (10-30); Salicylate < 1.7 mg/dl (2.8-20)
[2021-06-13 19:46] LABS: Alanine Aminotransferase 39 U/L (12-78); Albumin Level 3.2 gm/dl (3.4-5.0); Aspartate Aminotransferase 28 U/L (15-37); BUN Creatinine Ratio 30.1 (10-20); Blood Urea Nitrogen 22 mg/dl (7-18); Calcium 8.2 mg/dl (8.5-10.1); Carbon Dioxide 21 mmol/L (21-32); Chloride 111 mmol/L (98-107); Est GFR (African American) 119.4 ml/min; Glucose 86 mg/dl (70-99); Magnesium 2.2 mg/dl (1.8-2.4); Potassium 3.4 mmol/L (3.5-5.1); Sodium 139 mmol/L (136-145)
[2021-06-13 19:56] LABS: Alkaline Phosphatase 55 U/L (45-117); Bilirubin,Total 0.7 mg/dl (0.2-1); Globulin 3.3 gm/dl (2.5-4.0); Total Protein 6.5 gm/dl (6.4-8.2); Troponin I < 0.015 ng/ml (0-0.045)
--- NOTE | 2021-06-13 21:49 | History & Physical Report ---
Date of Service June 13, 2021 Assessment & Plan (1) Acute encephalopathy: Plan: 40 y/o F w/ complex PMHx of CVA, anxiety/depression, SLE, stress-induced CMP, fibromyalgia, multiple HTN urgency admissions, and prior AMS 2/2 sedating medications who presents for altered mental status since 06/11/21. She was seen at and admitted to [facility] from 06/11/21-06/13/21, left AMA per mother's request, and presented to [facility] ED. Reviewed [facility] hosp progress note. patient evaled by psych who suspected delirium. neuro was planning to initiate workup for lupus cerebritis - most likely 2/2 medications. hold home baclofen and no narcotics. considered delirium. lower suspicion psychosis - half dose home gabapentin - reduce use of sedating medications such as Benadryl, baclofen, benzos - hx of medication sensitivity, had prior admission that required intubation aft er baclofen+narcotic. newly started on Abilify 1.5 wk ago. - current BP normotensive. less suspicious for PRES or lupus cerebritis - UDS prelim w/ benzos, rest of panel pending - 1:1 sitter - CK now, lower suspicion NMS given normotensive (2) Chest pain: Plan: atypical cp - takotsubo at 04/2021 admission noted. repeat echo showed return of normal EF - 05/09/21 cardiac cath w/o CAD - per last d/c summary, " Dr. Parul Doty ([facility]) posited in an office visit on 04/11/2021 that her abdominal pain is related tovisceral hypersensitivitywhich could explain her chest pain as well. Other explanations could be costochondritis, trigger point pain, or a central pain syndrome. None of these should be treated with long-term opioids." - trend trop. ecg if cp - defer echo in AM (3) Fibromyalgia: Plan: - hold home baclofen - home gabapentin at half dose (4) Bilateral lower extremity edema: Plan: - check BNP - low suspicion for vte given appearance and HPI (5) Urinary tract infection: Plan: - pt denies dysuria or urinary sxs, but had some suprapubic discomfort during abd exam - treating w/ rocephin for presumed UTI possibly contributing to AMS (6) Systemic lupus: Plan: Has multisystem hx including recurrent miscarriages, HTN, perhaps related to SLE. - will need outpt f/u; has apt 09/2021 (7) Hypokalemia: Plan: - will replete (8) Hypothyroid: Plan: - not on medication. TSH wnl 2.01. hx of Tea's per [facility] documentation (9) Poorly-controlled hypertension: Plan: 181/83 at ED arrival, but normotensive past several hours 138/83 w/o any PRN antihypertensives - continue home regimen. hold home amlodipine 10mg; patient states this was recently discontinued; likely because of leg swelling as possible side effect. - still on home med's list, will need to d/c amlodipine upon discharge home Plan: FEN/GI: regular diet. no IVF ppx: SCDs+Lovenox code: full dispo: med/surg tele w/ 1:1 sitter History of Present Illness Chief Complaint: altered mental status Primary Care Provider: Matt Adame DO Danuta Rader is a 40 y/o female w/ PMHx of CVA, PE, anxiety/depression, SLE, multiple HTN urgency admissions, and prior AMS 2/2 sedating medications who presents w/ confusion, chest pain, leg swelling. Symptoms started 2 days ago, in context of newly starting Abilify a week prior. She was admitted to [facility] ED on 06/11/21 and left AMA today 06/13/[address] [facility]. She still has some confusion, but states improved since yesterday. She has mid chest pain, goes up to both upper chest to shoulders and down left. No numbness/tingling, palpitations or diaphoresis. No radiation of cp to back. sharp pain. constant. She states she recently stopped amlodipine, and instead placed on a a diuretic. States took an Abilify at home today; mother states this did not happen as she drove to [facility] directly after leaving [facility]. Endorses 5+ lb wt gain in 1 wk. Per patient, ok to update mother. Called mother who states patient felt unwell on 06/11/21, took nap, and woke up confused, so EMS took her to [facility] ED. Current complaint is feeling very tired. Outside hx also lists h/o Tea and hx seizure. Fhx: mom, sister, and possibly father have lupus. ED course: Rocephin 2g IV. zofran. MgSO4 1gram. Benadryl [address] neg. Hx limited by patient's mildly altered mental status. After my interview, I was later informed by staff that she attempted to walk out of the ED and had also dipped her blanket in the toilet. When I arrived, patient was attempting to walk out of room and had gown off; She stated that she was confused. Ordered 1:1 sitter after this. Allergies Allergy/AdvReac Type Severity Reaction Status Date / Time dexamethasone Allergy Intermediate HIVES Verified 06/13/21 17:40 latex Allergy Intermediate HIVES Verified 06/13/21 17:40 pregabalin Allergy Intermediate FACE AND Verified 06/13/21 17:40 LIPS SWELLED Sulfa (Sulfonamide Allergy Intermediate LUPUS Verified 06/13/21 17:40 Antibiotics) FLARE UP morphine Allergy Mild local Verified 06/13/21 17:40 reaction at site duloxetine AdvReac Intermediate SEROTONIN Verified 06/13/21 17:40 SYNDROME escitalopram AdvReac Intermediate WENT CRAZY Verified 06/13/21 17:40 sertraline [From Zoloft] AdvReac Intermediate WENT CRAZY Verified 06/13/21 17:40 Home Medications Medication Instructions Recorded Confirmed Type levothyroxine 25 mcg tablet 25 mcg PO QAM 07/10/19 06/13/21 History pantoprazole 40 mg tablet,delayed 40 mg PO BID 30 Days #60 tab 08/15/20 06/13/21 Rx release baclofen 20 mg tablet 20 mg PO TID PRN #20 tab 08/30/20 06/13/21 Rx gabapentin 300 mg capsule 900 mg PO TID #30 cap 08/30/20 06/13/21 Rx amlodipine 10 mg tablet 10 mg PO QAM 10/12/20 06/13/21 History furosemide 20 mg tablet 20 mg PO DAILY #30 tab 04/17/21 06/13/21 Rx losartan 100 mg tablet 100 mg PO DAILY 04/17/21 06/13/21 History lubiprostone 24 mcg capsule 24 mcg PO BID 05/08/21 06/13/21 History (Amitiza) ondansetron HCl 4 mg tablet 4 mg PO DAILY PRN 05/08/21 06/13/21 History clonidine HCl 0.1 mg tablet 0.1 mg PO DAILY PRN #30 tab 05/11/21 06/13/21 Rx alprazolam 1 mg tablet 1 mg PO TID PRN 06/13/21 06/13/21 History fluoxetine 20 mg capsule 20 mg PO DAILY 06/13/21 06/13/21 History Past Med/Surg History Medical History Abdominal pain (10/10/14) Abdominal pain Anxiety Chest pain Chronic pain syndrome Depression Fibromyalgia Gastritis Gastroparesis Headache History of kidney infection History of lupus History of lupus anticoagulant disorder History of migraine History of multiple miscarriages History of ovarian cyst History of umbilical hernia Hypertension Hypertensive urgency Hypothyroidism Intractable epigastric abdominal pain Lupus (04/04/14) Lupus nephritis Osteoarthritis Peptic ulcer disease Pleuritis (09/17/14) history of Poorly-controlled hypertension Post traumatic stress disorder Pulmonary embolism history of Surgical History H/O: hysterectomy History of tonsillectomy and adenoidectomy Hx of appendectomy Hx of cholecystectomy Port-A-Cath in place (08/29/20) Mediport Placement, Left Subclavian Vein Dr. aGrcia 08/29/2020 Family History Sister SLE (systemic lupus erythematosus) Family/Other SLE (systemic lupus erythematosus) maternal side Social History Smoking Status: Former smoker Tobacco Type: Cigarettes Age Started Using Tobacco: 23; Age Quit Using Tobacco: 39; Second Hand Exposure: No; Hx Alcohol Use: No Hx Substance Use: No Preferred Language: Khmer Communication Ability: Effective Carpenter Prototype Required: No Beliefs That Will Affect Care: None marital status: fiance. 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 Constitutional: Denies fever, chills Eyes: See HPI. + mild blurry vision, not new. ENT: Denies sore throat, sinus pain Cardiovascular: See HPI Respiratory: Denies shortness of breath, cough Gastrointestinal: Denies abdominal pain. + N/V (3-4 today). + some diarrhea. Genitourinary: Denies urinary symptoms including dysuria though she indicated some suprapubic area discomfort that she attributes to constipation. Musculoskeletal: R arm slightly weaker since 3 days ago Neurological: Denies numbness, tingling. MORRIS this AM. Currently has bilat orbital headache. Physical Exam Physical Exam: General: A&O to place, but not fully to context context. NAD. Cooperative. HEENT: Atraumatic, normocephalic. EOMI. PERRL. + mild bilat horizontal nystagmus. Pulm: CTAB. -wheezes, -rales, -rhonchi. No respiratory distress. Cardiac: RRR, -mrg. Radial pulses intact and symmetrical. puffy LE, no pitting Abdominal: Nontender, nondistended, soft. During exam, states has some lower abd / suprapubic discomfort, attributes to constipation, last BM yesterday but has had chronic constipation. Integ: Warm, dry, intact Neuro Human Resource Management Instructor strength on right is 4+/5, left is 5+/5. Otherwise, strength and sensation of extremities intact. Psych: Calm affect. Speech slightly tangential. Results & Data Results & Data ([facility]) Vital Signs (Past 12 Hours) Vital Signs Temp Pulse Pulse Resp BP BP Pulse Ox 06/13/21 21:00 69 16 138/83 97 06/13/21 19:16 63 17 135/75 98 06/13/21 18:03 62 16 99 06/13/21 18:02 62 16 140/82 98 06/13/21 16:57 36.6 C 65 18 181/103 H 100 Laboratory Results labs: cbc stable from 05/18/21 (12s vs 13s-15s months ago). PT INR wnl. K 4.4- >3.4L. Cr 0.73. Ca 8.2, corrected wnl. Mg 2.2. liver enzymes wnl. neg trop x1. tsh wnl 2.01. UA w/ trace blood and 2+ bact. utox pos benzos, other studies and benzo lvl pending UC pending. ecg w/ sinus israel 58 w/o ischemic changes cxr: no acute findings head CT: no acute findings 05/18/21 KORTNEY pos pattern suggestive of SLE 06/13/21 18:36 06/13/21 18:36 Cardiac Enzymes 06/13/21 Range/Units 18:36 AST 28 (15-37) U/L Troponin I < 0.015 (0-0.045) ng/ml Coagulation 06/13/21 Range/Units 18:36 PT 10.8 (9.0-12.0) Seconds CBC 06/13/21 Range/Units 18:36 WBC 5.62 (4.8-10.8) K/uL RBC 3.95 L (4.2-5.4) M/uL Hgb 12.4 (12.0-16.0) g/dL Hct 35.8 L (37-47) % Plt Count 194 (130-400) K/uL Neut # (Auto) 3.44 (1.4-6.5) K/uL Lymph # (Auto) 1.70 (1.2-3.4) K/uL [place] # (Auto) 0.35 (0.11-0.59) K/uL Eos # (Auto) 0.10 (0-0.5) K/uL Baso # (Auto) 0.02 (0-0.2) K/uL Comprehensive Metabolic Panel 06/13/21 Range/Units 18:36 Sodium 139 (136-145) mmol/L Potassium 3.4 L (3.5-5.1) mmol/L Chloride 111 H (98-107) mmol/L Carbon Dioxide 21 (21-32) mmol/L BUN 22 H (7-18) mg/dl Creatinine 0.73 (0.6-1.2) mg/dl Glucose 86 (70-99) mg/dl Calcium 8.2 L (8.5-10.1) mg/dl AST 28 (15-37) U/L ALT 39 (12-78) U/L Alkaline Phosphatase 55 (45-117) U/L Total Protein 6.5 (6.4-8.2) gm/dl Albumin 3.2 L (3.4-5.0) gm/dl Intake and Output 06/13/21 06/13/21 06/13/21 06:59 14:59 22:59 Intake Total 670 / 670 Balance 670 / 670 Intake: IV 670 / 670 Magnesium Sulfate / D5w 1 gm In 100 / 100 100 ml @ 100 mls/hr IV NOW ONE Rx#:[id number] Sodium Chloride 0.9% 500 ml @ 500 / 500 999 mls/hr IV .Q31M THAO Rx#: [id number] cefTRIAXone SODIUM 2,000 mg In 70 / 70 70 ml @ 140 mls/hr IV NOW STA Rx#:[id number] Other: Weight 105.5 kg Weight Measurement Method Chair Scale Patient Weight 06/14/21 06:59 Weight 105.5 kg Diagnostic Findings Head CT 06/13/21 17:18 CT SCAN OF THE BRAIN WITHOUT IV CONTRAST CLINICAL HISTORY: Headache. Change in mental status. COMPARISON STUDY: CT of the brain dated 05/08/2021. TECHNIQUE: Unenhanced axial CT scan of the brain is performed from the vertex to the skull base. A dose lowering technique was utilized adhering to the principles of ALARA. CT DOSE: 537.48 mGy.cm FINDINGS: Brain parenchyma: The brain parenchyma is normal in appearance. There is no hemorrhage, mass effect, or evidence of acute territorial ischemia by CT criteria. Vogel-white matter differentiation is preserved. No extra-axial fluid collection is seen. Ventricles, sulci, cisterns: Normal in configuration. Intracranial vasculature: The visualized intracranial vasculature at the skull base is normal in appearance. Calvarium: Unremarkable. Sinuses and mastoids: A 10 mm osteoma is incidentally noted in the right frontal sinus. The visualized paranasal sinuses are otherwise clear. The mastoid air cells are well pneumatized. Orbits: The bony orbits are grossly intact. IMPRESSION: No acute intracranial abnormality. ACT 112: Negative or not required by law. Electronically signed by: Abel Aragon M.D. 06/13/2021 5:44 PM Chest X-Ray 06/13/21 17:19 SINGLE VIEW CHEST CLINICAL HISTORY: Generalized weakness FINDINGS: An AP, portable, upright chest radiograph is compared to study dated 05/16/2021 and correlated with chest CT dated 05/08/2021. A left subclavian ken tral venous infusion port is unchanged in position. The cardiomediastinal silhouette is unremarkable. The lungs and pleural spaces are clear. No pneumothorax is seen. The bony thorax is grossly intact. Cholecystectomy clips are noted in the right upper quadrant. IMPRESSION: No active disease in the chest. ACT 112: Negative or not required by law. Electronically signed by: Abel Aragon M.D. 06/13/2021 5:32 PM Code Status & VTE Plan Code Status full VTE Prophylaxis Plan VTE Prophylaxis will be ordered: Yes Supervising Physician Co-Signing Physician Notes Attending addendum: I have physically seen this patient, have supervised the medical residents activities, and agree with the H&P unless as otherwise noted. Assessment and Plan: Acute encephalopathy- Admit to monitored bed Concern for medicamentosa/improper use of medications. Hold baclofen. Avoid narcotics and any other sedating medications History of respiratory failure associated with baclofen and narcotic use Hold Abilify started 1 1/2 weeks ago Patient with agitated behavior in ED, will be placed on one-to-one observation Chest pain- History of Takotsubo's in 05/07 admission Negative cardiac catheterization on 05/09/2021 May be associated with her fibromyalgia Fibromyalgia- Hold baclofen for now due to above changes Half dose gabapentin for now Remaining orders and notations as noted Resident Activity Tracking Resident Involvement: Resident Care Provided Care Provided: Adult Hospital Medicine
[2021-06-14] MEDS ORDERED: POTASSIUM CHLORIDE CRTAB 20 MEQ TABCR PO STA (00:01)
[2021-06-14 01:19] LABS: Creatine Kinase 76 U/L (26-192); Troponin I < 0.015 ng/ml (0-0.045)
[2021-06-14] MEDS ORDERED: ALUMINUM/MAGNESIUM SUSP 30 ML UDC PO PRN (02:36)
[2021-06-14] MEDS ORDERED: ONDANSETRON INJ 2 MG/ML 2 ML VIAL IV PRN (02:36)
[2021-06-14] MEDS ORDERED: POLYETHYLENE (MIRALAX) 17 GM PACK PO PRN (02:36)
[2021-06-14] MEDS: LEVOTHYROXINE SODIUM 25 MCG TABLET PO SCH (06:08)
[2021-06-14] MEDS: ACETAMINOPHEN 325 MG TAB PO PRN (06:08)
[2021-06-14] MEDS: ENOXAPARIN INJ 40 MG/0.4 ML SYR SQ SCH (06:43)
[2021-06-14] MEDS: LOSARTAN POTASSIUM 50 MG TAB PO SCH (07:48)
[2021-06-14] MEDS: FUROSEMIDE 20 MG TAB PO SCH (07:48)
[2021-06-14] MEDS: PANTOprazole 40 MG TAB PO SCH ×2 (07:48→20:03)
[2021-06-14] MEDS: GABAPENTIN 300 MG CAP PO SCH ×3 (07:48→20:03)
[2021-06-14 08:41] LABS: Basophils # (auto) 0.04 K/uL (0-0.2); Basophils % (auto) 0.6 %; Eosinophils % (auto) 1.6 %; Hematocrit (blood only) 39.7 % (37-47); Hemoglobin 13.8 g/dL (12.0-16.0); Immature Granulocytes # (auto) 0.05 K/uL (0.00-0.02); Immature Granulocytes % (auto) 0.8 %; Lymphocytes # (auto) 1.62 K/uL (1.2-3.4); Lymphocytes % (auto) 25.8 %; Mean Corpuscular Hemoglobin 31.7 pg (25-34); Mean Corpuscular Hgb Conc 34.8 g/dL (32-36); Mean Corpuscular Volume 91.3 fL (80-100); Mean Platelet Volume 10.6 fL (7.4-10.4); Monocytes # (auto) 0.33 K/uL (0.11-0.59); Monocytes % (auto) 5.3 %; Neutrophils # (auto) 4.14 K/uL (1.4-6.5); Neutrophils % (auto) 65.9 %; Platelet Count 212 K/uL (130-400); RDW Standard Deviation 43.2 fL (36.4-46.3); Red Blood Count 4.35 M/uL (4.2-5.4); White Blood Count 6.28 K/uL (4.8-10.8)
[2021-06-14 09:15] LABS: Alanine Aminotransferase 39 U/L (12-78); Albumin Level 3.7 gm/dl (3.4-5.0); Alkaline Phosphatase 59 U/L (45-117); BUN Creatinine Ratio 24.1 (10-20); Bilirubin,Total 0.6 mg/dl (0.2-1); Blood Urea Nitrogen 22 mg/dl (7-18); Calcium 8.5 mg/dl (8.5-10.1); Carbon Dioxide 19 mmol/L (21-32); Chloride 113 mmol/L (98-107); Creatinine Clr Calc Pharmacy 101.3 ml/min; Est GFR (African American) 90.3 ml/min; Est GFR (Non-African American) 77.9 ml/min; Globulin 3.6 gm/dl (2.5-4.0); Glucose 106 mg/dl (70-99); Sodium 140 mmol/L (136-145); Total Protein 7.3 gm/dl (6.4-8.2); Troponin I < 0.015 ng/ml (0-0.045)
--- NOTE | 2021-06-14 09:42 | Electrocardiogram Report ---
Test Reason : Blood Pressure : / mmHG Vent. Rate : 058 BPM Atrial Rate : 058 BPM P-R Int : 168 ms QRS Dur : 094 ms QT Int : 480 ms P-R-T Axes : 035 020 059 degrees QTc Int : 471 ms Sinus bradycardia Otherwise normal ECG When compared with ECG of 16-MAY-2021 12:23, ST no longer depressed in Anterolateral leads T wave inversion no longer evident in Anterolateral leads Confirmed by Kd Mayers ([id number]) on 06/14/2021 9:41:41 AM Referred By: REFERRED SELF Confirmed By:Flavio Mayers
[2021-06-14 10:36] LABS: Potassium 3.9 mmol/L (3.5-5.1)
[2021-06-14 10:42] LABS: Magnesium 2.4 mg/dl (1.8-2.4)
[2021-06-14] MEDS: KETOROLAC 30 MG/ML VIAL IV SCH ×3 (12:08→23:33)
--- NOTE | 2021-06-14 13:14 | Hospitalist Progress Note ---
Date of Service June 14, 2021 Assessment & Plan (1) Acute encephalopathy: Plan: 40 y/o F w/ complex PMHx of CVA, anxiety/depression, SLE, stress-induced CMP, fibromyalgia, multiple HTN urgency admissions, and prior AMS 2/2 sedating medications who presents for altered mental status Altered mental status - Almost completely resolved today, was likely of multifactorial etiology including polypharmacy (newly starting Abilify 1 week ago) and acute pain in context of lupus, fibromyalgia, anxiety, depression, resistant hypertension - AMS unlikely to be due to acute medical or psychotic illness - Utox- +benzodiazepines Chronic pain - Addressing today with morphine PRN and scheduled Toradol - Pt suffering from chronic pain due to rheumatologic disease, strong concern for growing opioid dependence and tolerance. Will need consistent outpatient care with casting operator as well as management of her pain which minimizes use of opioid medications. - Largely medically stable, anticipated discharge tomorrow in late AM (2) Chest pain: Plan: Chest pain - Takotsubo cardiomyopathy at 04/2021 admission, repeat echo during 05/2021 admission showed return of normal EF - 05/09/21 cardiac cath did not show any evidence of CAD - Pt's GI suspects visceral hypersensitivity contributes to her abdominal pain, trigger points may also be in play. Chest pain differential also includes costochondritis. - Serial troponins negative, EKG negative. Low suspicion for acute ischemic injury. (3) Fibromyalgia: Plan: - Gabapentin 300 mg TID continuing - Resume home Effexor 300 mg (4) Bilateral lower extremity edema: Plan: - BNP reassuring, also no significant fluid overload findings on exam - Low suspicion for CHF, edema more likely secondary to autoimmune disease (5) Urinary tract infection: Plan: - Presumed to have possible UTI by admitting physician as a cause of AMS - Treated with empiric Rocephin, hence discontinued (6) Systemic lupus: Plan: Has multisystem hx including recurrent miscarriages, HTN, perhaps related to SLE. - will need outpt f/u; has apt 09/2021 (7) Hypokalemia: Plan: - 3.4 on admission, 3.9 now (8) Hypothyroid: Plan: - not on medication. TSH wnl 2.01. hx of Tea's per [facility] documentation (9) Poorly-controlled hypertension: Plan: 181/83 at ED arrival, but normotensive during stay so far without any PRN antihypertensives - continue home regimen. hold home amlodipine 10mg; patient states this was recently discontinued; likely because of leg swelling as possible side effect. - still on home med's list, will need to d/c amlodipine upon discharge home Plan: FEN/GI: regular diet. no IVF ppx: SCDs+Lovenox code: full dispo: med/surg tele w/ 1:1 sitter Admission and Anticipated Discharge Date Admission Date: June 13, 2021 Supervising Physician Co-Signing Physician Notes I personally examined the patient and verified all atkins points of history and exam, discussed case, and agree with decision making with Dr Fragoso ongoing diffuse pain. Much less confused. Extensive discussion about diagnoses and long-term plan, as well as acute plan. Vitals noted, in general she is awake and alert oriented pleasant no distress. HEENT normocephalic atraumatic mucous membranes moist. Breathing unlabored no accessory muscle use good effort. Skin shows no rashes no pallor or icterus. Neuro without focal deficits. Gait normal and steady. Altered mental statusmost likely polypharmacy. Appears to have been improved or at least heavily resolving. Continue observation and supportive care. Diffuse chronic painlupus as the central driving factor, but largely a lot of her current pain appears to be fibromyalgia/myofascialdiscussed extensive/multimodal management most notably with psychologyboth for pain psychology and for the depression that comes with chronic pain, discussed light cardiovascular exercise for range of motion/desensitization/mobility, discussed the limited but somewhat helpful role of med management (of which she is already on), she is seeing a new casting operator who is excellent fairly soon, and having the lupus mediated inflammation adequately suppressed will be helpful, although I discussed with her quite frankly that it will not abruptly change how she is feeling, but rather will likely help slow any worsening of the process. For now, we will try to provide her a little bit of "respite care" from her pain with IV Toradol/IV morphinebut discussed the extremely limited role of narcotic medicines due to escalating tolerance/narcotics hyperalgesia/etc. Hypertensiondiscussed her extensive work-up for secondary hypertension that appears to be entirely negative, and that stress responses can spike high blood pressure. In that respect, we discussed the need for stress management techniques and calming techniques to try to help calm her fight or flight nervous system to try to prevent these types of blood pressure spikes. Otherwise as above Time in approximately 12:15 PM, time out approximately 12:45 PM, at least 30 minutes [id number]. Subjective Pt reports her chronic baseline pain, also still experiencing mid-sternal chest pain radiating bilaterally to shoulders and arms (which she has had before). Also reporting continued bilateral calf swelling. Coherent and conversant during entire interview and exam. Review of Systems Review of Systems: +Generalized pain, chest pain, leg swelling Physical Exam Physical Exam: General: alert, no acute distress HEENT: EOMI, moist mucous membranes Pulm: CTAB, unlabored respirations, no respiratory distress. Cardiac: RRR, normal S1 and S2, no murmurs Abdominal: Soft, nondistended. Slight tenderness diffusely across abdomen, mostly in RUQ and epigastrium Skin: Warm, dry, intact Neuro: fully alert and oriented, no focal motor or sensory deficits MSK: tenderness of sternum with reproducible chest pain Psych: calm affect, tearful at one point Results & Data Results & Data ([facility]) Vital Signs (Past 12 Hours) Vital Signs Temp Pulse Pulse Resp BP BP Pulse Ox 06/14/21 11:45 61 06/14/21 11:33 36.4 C L 65 16 124/83 96 06/14/21 03:01 55 L 06/14/21 02:42 36.5 C 57 L 16 147/86 H 100 06/14/21 02:07 36.9 C 85 16 139/81 98 Resident Activity Tracking Resident Involvement: Resident Care Provided Care Provided: Adult Hospital Medicine
--- NOTE | 2021-06-14 16:54 | Billing Data ---
Date of Service June 14, 2021 Coding Level of Care Code 65977 Subseq Obs Care Lvl 3
--- NOTE | 2021-06-14 16:55 | Billing Data ---
Date of Service June 14, 2021 Coding Level of Care Code 08541 Prolonged Care (int'l)
[2021-06-14] MEDS: MoRPHine SULFATE 4 MG/ML 1 ML CARP\\VIAL IV PRN ×2 (17:00→22:02)
[2021-06-14] MEDS ORDERED: NICOTINE 14 MG/24 HR PATCH TD SCH (21:00)
--- NOTE | 2021-06-14 22:21 | Billing Data ---
Date of Service June 14, 2021 Coding Level of Care Code INT OBSERVATION CARE 70M LVL 3
[2021-06-14] MEDS: HEPARIN 100 UNIT/ML 5ML FLUSH FLUSH PRN (23:04)
[2021-06-15] MEDS: ACETAMINOPHEN 325 MG TAB PO PRN (00:58)
[2021-06-15] MEDS: HEPARIN 100 UNIT/ML 5ML FLUSH FLUSH PRN ×3 (01:55→07:55)
[2021-06-15] MEDS: MoRPHine SULFATE 4 MG/ML 1 ML CARP\\VIAL IV PRN ×2 (01:55→08:55)
[2021-06-15] MEDS: ENOXAPARIN INJ 40 MG/0.4 ML SYR SQ SCH (05:34)
[2021-06-15] MEDS: KETOROLAC 30 MG/ML VIAL IV SCH ×2 (05:35→12:04)
[2021-06-15] MEDS: LEVOTHYROXINE SODIUM 25 MCG TABLET PO SCH (05:35)
[2021-06-15] MEDS: FUROSEMIDE 20 MG TAB PO SCH (08:55)
[2021-06-15] MEDS: PANTOprazole 40 MG TAB PO SCH (08:55)
[2021-06-15] MEDS: GABAPENTIN 300 MG CAP PO SCH ×2 (08:55→12:04)
[2021-06-15] MEDS ORDERED: VENLAFAXINE HCL XR 150 MG CAPXR PO SCH (09:00)
[2021-06-15] MEDS: LOSARTAN POTASSIUM 50 MG TAB PO SCH (10:07)
--- NOTE | 2021-06-15 11:09 | Discharge Summary ---
Date of Service June 15, 2021 Admission HPI Per Admitting Provider Danuta Rader is a 40 y/o female w/ PMHx of CVA, PE, anxiety/depression, SLE, multiple HTN urgency admissions, and prior AMS 2/2 sedating medications who presents w/ confusion, chest pain, leg swelling. Symptoms started 2 days ago, in context of newly starting Abilify a week prior. She was admitted to [facility] ED on 06/11/21 and left AMA today 06/13/21 before coming to [facility]. She still has some confusion, but states improved since yesterday. She has mid chest pain, goes up to both upper chest to shoulders and down left. No numbness/tingling, palpitations or diaphoresis. No radiation of cp to back. sharp pain. constant. She states she recently stopped amlodipine, and instead placed on a a diuretic. States took an Abilify at home today; mother states this did not happen as she drove to [facility] directly after leaving [facility]. Endorses 5+ lb wt gain in 1 wk. Per patient, ok to update mother. Called mother who states patient felt unwell on 06/11/21, took nap, and woke up confused, so EMS took her to [facility] ED. Current complaint is feeling very tired. Outside hx also lists h/o Tea and hx seizure. Fhx: mom, sister, and possibly father have lupus. ED course: Rocephin 2g IV. zofran. MgSO4 1gram. Benadryl [address] neg. Hx limited by patient's mildly altered mental status. After my interview, I was later informed by staff that she attempted to walk out of the ED and had also dipped her blanket in the toilet. When I arrived, patient was attempting to walk out of room and had gown off; She stated that she was confused. Ordered 1:1 sitter after this. Admission Exam Per Admitting Provider Physical Exam: General: A&O to place, but not fully to context context. NAD. Cooperative. HEENT: Atraumatic, normocephalic. EOMI. PERRL. + mild bilat horizontal nystagmus. Pulm: CTAB. -wheezes, -rales, -rhonchi. No respiratory distress. Cardiac: RRR, -mrg. Radial pulses intact and symmetrical. puffy LE, no pitting Abdominal: Nontender, nondistended, soft. During exam, states has some lower abd / suprapubic discomfort, attributes to constipation, last BM yesterday but has had chronic constipation. 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 Otherwise, strength and sensation of extremities intact. Psych: Calm affect. Speech slightly tangential. Principal Diagnosis Altered mental status Discharge Exam General: alert, no acute distress HEENT: EOMI, moist mucous membranes Pulm: CTAB, unlabored respirations, no respiratory distress. Cardiac: RRR, normal S1 and S2, no murmurs Abdominal: Soft, nondistended. Slight tenderness diffusely across abdomen, mostly in RUQ and epigastrium Skin: Warm, dry, intact Neuro: fully alert and oriented, no focal motor or sensory deficits MSK: tenderness of sternum with reproducible chest pain Psych: calm affect, tearful at one point Discharge Data Allergies Allergy/AdvReac Type Severity Reaction Status Date / Time dexamethasone Allergy Intermediate HIVES Verified 06/13/21 17:40 latex Allergy Intermediate HIVES Verified 06/13/21 17:40 pregabalin Allergy Intermediate FACE AND Verified 06/13/21 17:40 LIPS SWELLED Sulfa (Sulfonamide Allergy Intermediate LUPUS Verified 06/13/21 17:40 Antibiotics) FLARE UP morphine Allergy Mild local Verified 06/13/21 17:40 reaction at site duloxetine AdvReac Intermediate SEROTONIN Verified 06/13/21 17:40 SYNDROME escitalopram AdvReac Intermediate WENT CRAZY Verified 06/13/21 17:40 sertraline [From Zoloft] AdvReac Intermediate WENT CRAZY Verified 06/13/21 17:40 Consultations 06/13/21 20:50 ED Decision to Admit Stat Ordered Studies 06/13/21 17:18 CT head/brain wo con Stat Hospital Course (1) Acute encephalopathy: 40 y/o F w/ complex PMHx of CVA, anxiety/depression, SLE, stress-induced Takotsubo cardiomyopathy, fibromyalgia, myofascial pain syndrome, multiple HTN urgency admissions, and prior AMS 2/2 sedating medications admitted for AMS and acute flare of chronic pain, hospitalized 06/14 and discharged 06/15. Chronic pain - Addressed with morphine PRN and scheduled Toradol, responded well during stay - Pt suffering from chronic pain due to rheumatologic disease, strong concern for growing opioid dependence and tolerance, eventual future opioid-induced hyperalgesia. Will need consistent outpatient care with heat curer, regular close follow up with PCP as well as management of her pain which minimizes use of opioid medications. Because pain is strongly linked to her anxiety, we hope to limit anxiety medication use as well. We encouraged utilization of measures such as stress management techniques (ex: breathing exercises), increased cardiovascular exercise and distracting activities. - Also recommended regular use of Tylenol as outpatient, avoidance of NSAIDS, and usage of opioids only for intolerable pain - Medically stable during hospitalization and at time of discharge, discharged on short supply of oxycodone Altered mental status - Almost completely resolved by day of discharge, was likely of multifactorial etiology including polypharmacy (newly starting Abilify 1 week ago) and acute pain in context of lupus, fibromyalgia, anxiety, depression, resistant hypertension - AMS unlikely to be due to acute medical or psychotic illness - Utox- +benzodiazepines (2) Chest pain: Chest pain - Takotsubo cardiomyopathy at 04/2021 admission, repeat echo during 05/2021 admission showed return of normal EF - 05/09/21 cardiac cath did not show any evidence of CAD - Pt's GI suspects visceral hypersensitivity contributes to her abdominal pain, trigger points may also be in play. Chest pain differential also includes costochondritis. - Serial troponins negative, EKG negative. Low suspicion for acute ischemic injury. (3) Fibromyalgia: - Gabapentin 300 mg TID continued during stay (4) Bilateral lower extremity edema: - BNP reassuring, also no significant fluid overload findings on exam - Low suspicion for CHF, edema more likely secondary to autoimmune disease (5) Urinary tract infection: - Presumed to have possible UTI by admitting physician as a cause of AMS - Treated with empiric Rocephin, hence discontinued (6) Systemic lupus: Has multisystem hx including recurrent miscarriages, HTN, perhaps related to SLE. - will need outpt f/u; has apt 09/2021 (7) Hypokalemia: - 3.4 on admission, 3.9 by time of discharge (8) Hypothyroid: - not on medication. TSH wnl 2.01. hx of Tea's per [facility] documentation (9) Poorly-controlled hypertension: 181/83 at ED arrival, but normotensive during stay so far without any PRN antihypertensives - continue home regimen. hold home amlodipine 10mg; patient states this was recently discontinued; likely because of leg swelling as possible side effect. - still on home med's list, will need to d/c amlodipine upon discharge home FEN/GI: regular diet. no IVF ppx: SCDs+Lovenox code: full dispo: home today Total Time Total Time Spent Total Time Spent (In Minutes): ~1hr Discharge Plan Discharge Items Patient Disposition: Home - Self-Care Reason For Visit: ALTERED MENTAL STATUS Discharge Diagnosis: Chronic pain and anxiety Activity: Per Instructions section Non-emergency contact: Primary Care Provider and Pain Management Call non-emergency contact if: you have any medication questions, your symptoms worsen, your pain is not controlled and your pain is worsening Follow-up/Referrals: Matt Adame, [Primary Care Provider] - (PLEASE CALL YOUR PRIMARY CARE PROVIDER TO SCHEDULE A DISCHARGE FOLLOW-UP APPOINTMENT FOR 7-10 DAYS. ) Diet: Regular and Low Sodium (2gm) Addtl Attending Provider Instructions: chronic pain -as we have been discussing, your pain is a complicated interplay of the lupus, the subsequent fibromyalgia, and the chicken-egg vicious cycle of pain and anxiety playing off of (and amplifying) each other -sadly, as we have also been discussing, these are problems that we are not likely to be able to "fix" as much is help work plans to manage. -The "layers of the onion" of what seems to be causing you all of the pain, is having the lupus mediated inflammation and chronic pain from that, likely created a spinoff syndrome of fibromyalgia which is probably the main part of what is making you hurt now, and as the pain and anxiety play off of each other, there are times where the pain and anxiety amplified other, or where the pain and anxiety also cause you to have a "fighter flight response" spiking your blood pressure, or what would amount to a neuropsychological panic attack manifesting as the delirium. -To better define what fibromyalgia means with you, it is likely 2 separate things: 1 is myofascial pain, likely initially mediated by chronic inflammation from the lupus, but now as a separate "spinoff" problem of tight fascia, trigger points, painful muscles, etc. Separate from that, there is also likely a neurologic "up regulation" portion of the fibromyalgiawhere when we have pain every day, the nerves that carry pain, and the part of our brain that since his pain, become heightened in transmitting a pain signal, making it very bong to the same kind of pain that would cause someone to have "phantom limb pain" but still having the body parts that are generating the phantom signal. -To manage this, we really have to go after it from every angle we can, being fully aware that the situation like yours is absolutely a "mind-body" situationparticularly as it relates to the fibromyalgia portion of the pain/distress (which is likely quite a sizable portion) ----> Critical will be work with psychologyagain to be clear, this is not a situation of "it is all in your head" as much as it is a situation where we cannot really put out the root cause of the symptoms, so we have to try to take control of the power of your mind, and change the overall mentality from trying to get things to go away to trying to learn to work around/live with the symptoms. I am thrilled that you are set up with a psychologist, that will be absolutely crucial towards helping her get better/is better as you can. in the short-term, when you are having bad episodes, the techniques we talked about such as deep breathing/box breathing/distraction/etc. will be things that are absolutely critical for you to practice to work your way through bad episodes. With time and practice, it is likely that utilizing these techniques when things feel really bad will hopefully reduce the spikes in blood pressure, and reduce the chances of being delirious. Over time, with ongoing work with pain psychology, and all of the other factors outlined below, hopefully will start to feel better enough that the "what do I do when things are acutely terrible" episodes get less and less. in the meantime, as we discussed, we will have a cautious "acute pain plan"outlined below, and certainly if things feel truly terrible, or you get delirious again, it is okay to come back to the hospital. The goal will be to try to get things arranged and well enough that this will batista ppen less and less. ----> Movement and blood flow: For the myofascial and neurologic portions of the fibromyalgia, gentle exercise is critical. What we find from a myofascial standpoint, is that light cardiovascular exercise will improve blood flow to muscles and fascia, and typically muscles and fascia that have better blood flow will be able to be more relaxed. Additionally, taking things through a range of motion can often desensitize the nerves to help painful things feel. To that end, the goal will be to have you do some sort of light cardiovascular exercise every day. The trick, as we have been talking about, is that with lupus/fibromyalgia, there is a terrible "pay for it later" if you overdo it. Because of that, pay attention to your bodyand while you will want to try to do something every single day, you will also wants to do less then you feel like you can, to reduce the risk of paying for it the next day (or more). As an example, if you are taking a walk, and you are feeling really good, may be stop at 20 or 30 minutes even if you felt like you could go for longer. Likewise, when you are cleaning, if you feel like you could clean the whole house, may be stop skilled nursing. The idea there is to be doing as much as you can, but trying to avoid that "ceiling" of overdoing itso that you are able to do something again the next day, rather than being laid up ----> Myofascial pain: Specific to the myofascial pain, in addition to movement and blood flow, Dr. Adame and/or the pain management doctors will be looking at a combination of trigger point injections, and OMT (hands-on work on the tight muscles/ligament/fascia) to try to help reduce the muscle tension. Usually this helps people with lupus and fibromyalgia, sometimes it does make people feel a little worse before starting to feel better, and generally speaking these types of treatments take a while to really help. ---> Acute pain plan: Because everything above is a "long game" and things are miserable right now as well, like we talkedif done very cautiouslywe can utilize medications for an acute pain plan to try to help you from having truly terrible days while all of the above is working to improve your situation -While you will likely not feel much benefit from any individual dose of Tylenol, for the time being I would recommend you take Tylenol 650 mg 3 times a day like clockwork. At that dosing range, it will not have much of any impact on your liver, and like we discussed, while it will not be "game changing good" it will likely reduce the day today misery by a little bit. (As we discussed, it is not likely to take things from a 9-2 on the pain scale, but if it takes things from a 9 to an 8, but does so all the time, that can help make a dent in the true 10/10 crises) -On top of that, have a very low threshold to take 600 mg to 800 mg of ibuprofen up to every 6 hours as needed for pain. Like we discussed, when taking it regularly, day in and day out, it can start to be hard on stomach/kidneys/blood vessels. For you the main acute concern will be stomach, but if your stomach is feeling good (no stomach pain, no nausea, no pain after you eat, etc.) it can be okay to take dosing. Further, like we discussed, if we are taking the Tylenol routinely, but using "do I really need it" trigger for taking the ibuprofen, you would likely take far less than if you were taking it [id number]. What will probably happen, is that there will be days where you do not end up taking it at all, and other days where you may take 3-4 doses in a day, depending on how you are feeling. -Lastly, but really needing to be reserved for when things are "10/10 bad" we can utilize oxycodone. The problem with utilizing oxycodone routinely/chronically in your type of the situation are multitude. The most relevant to being tolerance and hyperalgesia. With tolerance, people have less benefit from the same dose, as their body gets used to the medicine. This usually leads to a need to escalate the dose. Beyond that, because of the way the medicines are metabolized, sometimes people's tolerance to the medicine starts to exceed the effective dose of the medicineand the patient is subject to the cruel reality of needing a higher dose to not feel withdrawal, but being on too high of a dose to rapidly metabolized the medicineessentially creating a "bottleneck" where the medicine is not really being able to be moved to an active form. Hyperalgesia is the phenomenon where people on routine narcotics (some studies have even shown this in as little as 3 to 4 days of routine use) where counterintuitively, narcotic pain medicines actually start to increase our sensitivity to pain/reduce the threshold at which we start to feel pain. This is countered by the fact that everything that we are going to have you work on for the pain will take quite a while to take effect, and if done carefully, we can utilize short durations of narcotics dosing to buy you a little bit of breathing room from the pain. As we discussed, the plan would essentially be to try to reserve the oxycodone for true 10/10 days, and nothing else. Further, if you end up needing narcotics 1 day, it would be imperative to avoid them for at least the next several days, because in so doing, you can largely prevent tolerance/physical dependency, as well as prevent the hyperalgesia that would defeat the purpose of being on pain medicines in general. Over time, the goal would be to get rid of these medicines altogether as well, but I agree with you, right now we do not really have any good optionsinto that and very careful, very narrow, very short-lived bursts of narcotic treatment is a reasonable course of action. ----> Some wildcard treatments would be things like acupuncture, regular massage, and ketamine infusionsas you were discussing, the problem with this is frequently the financials, given that they are rarely covered by insurance. At the same time, keep them in mind in case coverage changes/etc. ---> As we discussed, while now is not the time to start making the changes, benzodiazepine medications such as Xanax suffer from similar complicating factors as the narcotic medicines. Typically once somebody's body gets used to a benzodiazepine medicine, physical dependency ensues, and when somebody has a degree of physical dependency on a medicine like a benzodiazepine, when the medicine starts to wear off the "withdrawal syndrome" people feel essentially feels exactly like they are anxiety. To that end, over time, a good goal would be to start to wean and eventually get rid of the Xanax as well. Pending Studies at Discharge: No Stand-Alone Forms: [facility], Smoking Cessation Medications and DC Order Prescriptions: New oxycodone 10 mg tablet 10 mg PO Q8H PRN (Reason: pain) Qty: 15 RF: 0 Continued losartan 100 mg tablet 100 mg PO DAILY RF: 0 furosemide 20 mg tablet 20 mg PO DAILY Qty: 30 RF: 2 baclofen 20 mg Tablet 20 mg PO TID PRN (Reason: abdominal pian) Qty: 20 RF: 0 gabapentin 300 mg Capsule 900 mg PO TID Qty: 30 RF: 0 levothyroxine 25 mcg tablet 25 mcg PO QAM RF: 0 pantoprazole 40 mg tablet,delayed release (DR/EC) 40 mg PO BID 30 Days Qty: 60 RF: 1 amlodipine 10 mg tablet 10 mg PO QAM RF: 0 ondansetron HCl 4 mg tablet 4 mg PO DAILY PRN (Reason: Nausea And Vomiting) RF: 0 lubiprostone [Amitiza] 24 mcg capsule 24 mcg PO BID RF: 0 clonidine HCl 0.1 mg Tablet 0.1 mg PO DAILY PRN (Reason: Systolic BP at or above 180) Qty: 30 RF: 0 alprazolam 1 mg tablet 1 mg PO TID PRN (Reason: Anxiety) RF: 0 fluoxetine 20 mg capsule 20 mg PO DAILY RF: 0 Discharge Orders: Discharge Order (Routine); Ordered 06/15/21 Ordered By: Lester Roger Admission Data Admit Date/Time: 06/13/21 23:42 Attending Provider: Lester Roger Admit Provider: Galen Truong Primary Care Provider: Matt Adame Other Providers: Renny Kidd Other Interventions: Discharge Summary Assessment (RN) Last Done: 06/15/21 14:02 Supervising Physician Co-Signing Physician Notes Ipersonally examined the patient and verified all atkins points of history and exam, discussed case, and agree with decision making with Dr Fragoso Ongoing pain, no confusion. She notes that actually she has been confused off and on long before her current med regimennotes mostly its whenever her pain gets really bad. Vitals noted, in general she is awake and alert oriented pleasant no distress. HEENT normocephalic atraumatic mucous membranes moist. Breathing unlabored no accessory muscle use good effort. Skin shows no rashes no pallor or icterus. Neuro without focal deficits. Mental status shows good recent and remote recall little bit of concrete thinking, but overall decent judgment and insight. Altered mental statusinitially suspected polypharmacybut after further discussion with patient, it seems that it is likely a bit of a neuropsychological manifestation of pain and anxietygiven that she notes it has happened on and off frequently and really with little connection to her med regimen or changes in her med regimen. Likely the bulk of the plan for this will fit with the management of her diffuse chronic pain, fibromyalgia, and anxiety. Diffuse chronic painsee discharge instructions that I personally prepared for the patient for a detailed outline of the planneeds to be multimodal. Was very reticent about any narcotics, but patient was very insightful that while she is willing to put in the work that may help improve her situation, will likely take a long time, and in the meantime some sort of acute plan for when things are really bad would be reasonable. Again see instructions patient otherwise Hypertensiondiscussed her extensive work-up for secondary hypertension that appears to be entirely negative, and that stress responses can spike high blood pressure. In that respect, we discussed the need for stress management techniques and calming techniques to try to help calm her fight or flight nervous system to try to prevent these types of blood pressure spikes. Otherwise as above, approximately an hour spent on her case, possibly more today. Resident Activity Tracking Resident Involvement: Resident Care Provided Care Provided: Adult Hospital Medicine
--- NOTE | 2021-06-15 18:11 | Billing Data ---
Date of Service June 15, 2021 Coding Level of Care Code 32757 OBS Care - Discharge
[2021-06-16 07:28] LABS: 7-Aminoclonaz, Confirm NEGATIVE ng/mL (<25); Hydro-Alp Ur, GC/MS 136 ng/mL (<25); Hydroxyethylflurazepam, Conf NEGATIVE ng/mL (<50); Hydroxymidazolam Ur, GC/MS NEGATIVE ng/mL (<50); Hydroxytriazolam NEGATIVE ng/mL (<50); Lorazepam, Ur GC/MS 151 ng/mL (<50); Nordiazepam, Confirm NEGATIVE ng/mL (<50); Oxazepam Ur, GC/MS NEGATIVE ng/mL (<50); Temazepam, Confirm NEGATIVE ng/mL (<50)
== END 2021-06-15 14:17 | disposition home or self-care (01) ==
LOC: ED 16:48 → 2W 16:48 → SUATTDRO 23:42 → 2W 06-14 02:07

== ENCOUNTER 2021-07-12 15:15 | Inpatient (IN) ==
--- NOTE | 2021-07-12 16:06 | XRay Report ---
XR chest 1V portable CLINICAL HISTORY: Chest Pain. COMPARISON STUDY: 06/13/2021 TECHNIQUE: 1 view of the chest FINDINGS: Single frontal view of the chest demonstrates the cardiomediastinal silhouette to be within normal li mits. A Port-A-Cath is in place. The lungs are clear of alveolar opacities. There is no evidence for pleural effusion. There is no evidence for vascular congestion. There is no acute osseous pathology. IMPRESSION: No acute cardiopulmonary disease. There is no significant interval change. ACT 112: Negative or not required by law. Electronically signed by: Loki Harrell M.D. 07/12/2021 4:04 PM
[2021-07-12] MEDS ORDERED: SODIUM CHLORIDE 0.9% 500 ML IV ONE (17:39)
--- NOTE | 2021-07-12 17:47 | Emergency Department Note ---
History of Present Illness General Chief complaint: Cardiac Assessment Stated complaint: SEVERE CONFUSION/ELEVATED B/P 170/116 Time Seen by Provider: 07/12/21 17:24 Source: patient and family (Sister who is at the bedside) Mode of arrival: ambulatory Limitations: no limitations History of Present Illness Maximum Pain Intensity: 9 This patient comes in after having confusion starting around noon. Her sister says she is starting to do stuff and she forgets she is confused she answers a lot of questions appropriately but seems off and preoccupied. She has had chest pain for 2 weeks has been intermittent on the left side now has been constant for several days. No trauma or injury no fever or chills she has a mild headache. No neck pain. No Covid exposure. She had the Covid vaccine. No urinary symptoms no focal numbness or weakness no difficulty speaking or swallowing. She had no bowel movement for 5 days. She was admitted 1 month ago here for very similar situation her sister says she is had no bowel movement for 5 days and her abdomen starts hurting and then she gets confused. Looking back through the old notes it looks like this was thought to be related to pain and polypharmacy at the time however she also has a history of hypertensive encephalopathy. Home Medications Medication Instructions Recorded Confirmed Type levothyroxine 25 mcg tablet 25 mcg PO QAM 07/10/19 07/12/21 History gabapentin 300 mg capsule 900 mg PO TID #30 cap 08/30/20 07/12/21 Rx lubiprostone 24 mcg capsule 24 mcg PO BID 05/08/21 07/12/21 History (Amitiza) ondansetron HCl 4 mg tablet 4 mg PO DAILY PRN 05/08/21 07/12/21 History alprazolam 1 mg tablet 1 mg PO TID PRN 06/13/21 07/12/21 History baclofen 10 mg tablet 20 mg PO TID PRN tab 06/19/21 07/12/21 History carvedilol 12.5 mg tablet 12.5 mg PO BID 06/19/21 07/12/21 History chlorthalidone 25 mg tablet 25 mg PO DAILY 06/19/21 07/12/21 History famotidine 20 mg tablet 20 mg PO BID 06/19/21 07/12/21 History linaclotide 290 mcg capsule 290 mcg PO DAILY 06/19/21 07/12/21 History (Linzess) losartan 100 mg tablet 50 mg PO DAILY tab 06/19/21 07/12/21 History clonidine HCl 0.1 mg tablet 0.1 mg PO DAILY PRN 07/12/21 07/12/21 History fluoxetine 20 mg capsule 40 mg PO DAILY 07/12/21 07/12/21 History furosemide 20 mg tablet (Lasix) 20 mg PO DAILY 07/12/21 07/12/21 History galcanezumab-gnlm 120 mg/mL 120 mg SUBCUT MO 07/12/21 07/12/21 History subcutaneous pen injector (Emgality Pen) metoprolol tartrate 50 mg tablet 50 mg PO DAILY 07/12/21 07/12/21 History (Lopressor) Allergies Allergy/AdvReac Type Severity Reaction Status Date / Time dexamethasone Allergy Intermediate HIVES Verified 06/13/21 17:40 latex Allergy Intermediate HIVES Verified 06/13/21 17:40 pregabalin Allergy Intermediate FACE AND Verified 06/13/21 17:40 LIPS SWELLED Sulfa (Sulfonamide Allergy Intermediate LUPUS Verified 06/13/21 17:40 Antibiotics) FLARE UP morphine Allergy Mild local Verified 06/13/21 17:40 reaction at site duloxetine AdvReac Intermediate SEROTONIN Verified 06/13/21 17:40 SYNDROME escitalopram AdvReac Intermediate WENT CRAZY Verified 06/13/21 17:40 sertraline [From Zoloft] AdvReac Intermediate WENT CRAZY Verified 06/13/21 17:40 Past Med/Surg History Medical History Abdominal pain (10/10/14) Abdominal pain Acute confusion Anxiety Chest pain (04/04/14) Chest pain Chronic pain syndrome Dehydration Depression Fibromyalgia Gastritis Gastroparesis Headache History of kidney infection History of lupus History of lupus anticoagulant disorder History of migraine History of multiple miscarriages History of ovarian cyst History of umbilical hernia Hypertension Hypertensive urgency Hypothyroidism Intractable epigastric abdominal pain Lupus (04/04/14) Lupus nephritis Osteoarthritis Peptic ulcer disease Pleuritis (09/17/14) history of Poorly-controlled hypertension Post traumatic stress disorder Pulmonary embolism history of Urinary tract infection Surgical History H/O: hysterectomy History of tonsillectomy and adenoidectomy Hx of appendectomy Hx of cholecystectomy Port-A-Cath in place (08/29/20) Mediport Placement, Left Subclavian Vein Dr. Garcia 08/29/2020 Family History Sister SLE (systemic lupus erythematosus) Family/Other SLE (systemic lupus erythematosus) maternal side Social History Smoking Status: Former smoker Tobacco Type: Cigarettes Age Started Using Tobacco: 23; Age Quit Using Tobacco: 39; Second Hand Exposure: No; Hx Alcohol Use: No Hx Substance Use: No Preferred Language: Arabic Communication Ability: Effective Software Qa Manager Required: No Beliefs That Will Affect Care: None marital status: fiance. 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 How many Children do You have: 2 Feels Safe at Home: Yes Assistive Devices: None Review of Systems A total of 10 systems reviewed and were otherwise negative Physical Exam Vital Signs Vital Signs - 24 hr 07/12/21 15:28 07/12/21 19:03 07/12/21 19:10 Temperature 37.4 C Temperature Source Temporal Artery Scan Pulse Rate 90 90 Pulse Rate [Finger] 90 Respiratory Rate 18 20 18 Respiratory Effort / Characteristics Non-Labored Spontaneous Respiratory Depth Normal Blood Pressure 178/105 H Blood Pressure [Right Arm] 162/90 H Blood Pressure Mean 129 Blood Pressure Mean [Right Arm] 114 Blood Pressure Position Sitting Pulse Oximetry 98 100 99 Oxygen Delivery Method Room Air Room Air Room Air Sepsis Recent Fever Within 48 Hours No Sepsis New/Unexplained Change in Mental Status No Sepsis Action Taken by Nursing No Action Required General: Well developed well nourished middle-aged female who is awake and alert. She is alert and oriented to person and place but not date. In no acute distress, breathing comfortably on room air. Normal speech. She answers most questions appropriately but others not she does seem preoccupied. HEENT: Normal cephalic atraumatic. Pupils are equal round and reactive to light. Extraocular movements are intact. Oropharynx is pink with moist mucous membranes. No swelling of the mouth lips or tongue. Neck: Supple with a midline trachea. No meningeal signs or stiffness, no JVD or bruits. No Stridor. Chest: Clear to auscultation bilaterally. No wheezes or rhonchi. No increased work of breathing. A port in left chest Heart: Regular rate and rhythm without murmurs or gallops. Abdomen: Soft nontender, nondistended without rebound guarding or rigidity. Extremities: No cyanosis clubbing or edema. No calf tenderness or assymetry Spine/Back. Non tender to palpation. No CVA tenderness Skin: Good turgor without rashes. Neurologic exam: Cranial nerves two through 12 are intact. Motor and sensation are intact and symmetrical throughout. Is all 4 extremities symmetrically. Course Administered Medications Discontinued Medications Sodium Chloride (Nss) 500 mls @ 999 mls/hr IV .Q31M ONE Stop: 07/12/21 18:09 Last Infusion: 07/12/21 19:52 Dose: 0 mls/hr Documented by: [id number] Admin: 07/12/21 19:03 Dose: 999 mls/hr Documented by: [id number] Ketorolac Tromethamine (Ketorolac Tromethamine 15 Mg/Ml Vial) 10 mg IV NOW ONE Stop: 07/12/21 19:11 Last Admin: 07/12/21 19:55 Dose: 10 mg Documented by: [id number] Methylprednisolone (Methylprednisolone 40 Mg/Ml Vial) 20 mg IV NOW STA Stop: 07/12/21 19:51 Last Admin: 07/12/21 20:14 Dose: 20 mg Documented by: [id number] Medical Decision Making Differential Diagnosis Encephalopathy, intracranial process, infection, medication, toxicologic, hypertensive encephalopathy, lupus, Covid, electrolyte or metabolic abnormality Medical Records Attestation: I reviewed the patient's medical records. Home Medications Current Medication List: was personally reviewed by me Laboratory Data Attestation: I reviewed the patient's lab results. Result diagrams: 07/12/21 18:06 07/12/21 18:06 Lab Results 07/12/21 07/12/21 07/12/21 Range/Units 18:06 18:06 18:06 WBC 13.11 H (4.8-10.8) K/uL RBC 3.67 L (4.2-5.4) M/uL Hgb 11.5 L (12.0-16.0) g/dL Hct 34.0 L (37-47) % MCV 92.6 (80-100) fL MCH 31.3 (25-34) pg MCHC 33.8 (32-36) g/dL RDW Std Deviation 44.3 (36.4-46.3) fL RDW Coeff of Meg 13.1 (11.5-14.5) % Plt Count 303 (130-400) K/uL MPV 10.1 (7.4-10.4) fL Immature Gran % (Auto) 0.2 % Neut % (Auto) 82.7 % Lymph % (Auto) 9.8 % Dawson % (Auto) 6.9 % Eos % (Auto) 0.2 % Baso % (Auto) 0.2 % Neut # (Auto) 10.87 H (1.4-6.5) K/uL Lymph # (Auto) 1.28 (1.2-3.4) K/uL Dawson # (Auto) 0.90 H (0.11-0.59) K/uL Eos # (Auto) 0.02 (0-0.5) K/uL Baso # (Auto) 0.02 (0-0.2) K/uL Immature Gran # (Auto) 0.02 (0.00-0.02) K/uL PT 11.4 (9.0-12.0) Seconds INR 1.1 (0.9-1.1) APTT 32.8 H (21.0-31.0) Seconds PTT Ratio 1.2 Sodium 134 L (136-145) mmol/L Potassium 3.9 (3.5-5.1) mmol/L Chloride 105 (98-107) mmol/L Carbon Dioxide 21 (21-32) mmol/L Anion Gap 8.0 (3-11) BUN 9 (7-18) mg/dl Creatinine 0.80 (0.6-1.2) mg/dl Est Cr Clr Drug Dosing 122.8 ml/min Est GFR ( Amer) 106.9 ml/min Est GFR (Non-Af Amer) 92.2 ml/min BUN/Creatinine Ratio 11.4 (10-20) Glucose 89 (70-99) mg/dl Lactate (0.4-2.0) mmol/L Calcium 9.0 (8.5-10.1) mg/dl Total Bilirubin 0.7 (0.2-1) mg/dl AST 17 (15-37) U/L ALT 17 (12-78) U/L Alkaline Phosphatase 79 (45-117) U/L Troponin I < 0.015 (0-0.045) ng/ml Total Protein 7.8 (6.4-8.2) gm/dl Albumin 3.0 L (3.4-5.0) gm/dl Globulin 4.8 H (2.5-4.0) gm/dl Albumin/Globulin Ratio 0.6 L (0.9-2) HCG, Qual (Negative) Specimen Hemolysis Urine Color Urine Appearance (Clear) Urine pH (4.5-7.5) Ur Specific [place] (1.000-1.030) Urine Protein (Negative) Urine Glucose (UA) (Negative) Urine Ketones (Negative) Urine Blood (Negative) Urine Nitrite (Negative) Urine Bilirubin (Negative) Urine Urobilinogen (Negative) Ur Leukocyte Esterase (Negative) Urine WBC (Auto) (0-5) /hpf Urine RBC (Auto) (0-4) /hpf U Hyaline Cast (Auto) (0-5) /lpf U Epithel Cells (Auto) (0-5) /lpf Urine Bacteria (Auto) (Negative) Salicylates (2.8-20) mg/dl Urine Opiates Screen (Neg) Ur Methadone, Qual (Neg) Acetaminophen (10-30) ug/ml Urine Barbiturates (Neg) Ur Phencyclidine (PCP) (Neg) U Amphetamin/Meth Scrn (Neg) MDMA (Ecstasy) Screen (Neg) U Benzodiazepines Scrn (Neg) Ur Cocaine Metabolite (Neg) U Marijuana (THC) Screen (Neg) Ethyl Alcohol mg/dL (0-3) mg/dl SARS-CoV-2, RNA, NAAT (NEGATIVE) 07/12/21 07/12/21 07/12/21 Range/Units 18:06 18:06 18:06 WBC (4.8-10.8) K/uL RBC (4.2-5.4) M/uL Hgb (12.0-16.0) g/dL Hct (37-47) % MCV (80-100) fL MCH (25-34) pg MCHC (32-36) g/dL RDW Std Deviation (36.4-46.3) fL RDW Coeff of Meg (11.5-14.5) % Plt Count (130-400) K/uL MPV (7.4-10.4) fL Immature Gran % (Auto) % Neut % (Auto) % Lymph % (Auto) % Dawson % (Auto) % Eos % (Auto) % Baso % (Auto) % Neut # (Auto) (1.4-6.5) K/uL Lymph # (Auto) (1.2-3.4) K/uL [place] # (Auto) (0.11-0.59) K/uL Eos # (Auto) (0-0.5) K/uL Baso # (Auto) (0-0.2) K/uL Immature Gran # (Auto) (0.00-0.02) K/uL PT (9.0-12.0) Seconds INR (0.9-1.1) APTT (21.0-31.0) Seconds PTT Ratio Sodium (136-145) mmol/L Potassium (3.5-5.1) mmol/L Chloride (98-107) mmol/L Carbon Dioxide (21-32) mmol/L Anion Gap (3-11) BUN (7-18) mg/dl Creatinine (0.6-1.2) mg/dl Est Cr Clr Drug Dosing ml/min Est GFR ( Amer) ml/min Est GFR (Non-Af Amer) ml/min BUN/Creatinine Ratio (10-20) Glucose (70-99) mg/dl Lactate 0.4 (0.4-2.0) mmol/L Calcium (8.5-10.1) mg/dl Total Bilirubin (0.2-1) mg/dl AST (15-37) U/L ALT (12-78) U/L Alkaline Phosphatase (45-117) U/L Troponin I (0-0.045) ng/ml Total Protein (6.4-8.2) gm/dl Albumin (3.4-5.0) gm/dl Globulin (2.5-4.0) gm/dl Albumin/Globulin Ratio (0.9-2) HCG, Qual Negative (Negative) Specimen Hemolysis Urine Color Urine Appearance (Clear) Urine pH (4.5-7.5) Ur Specific [place] (1.000-1.030) Urine Protein (Negative) Urine Glucose (UA) (Negative) Urine Ketones (Negative) Urine Blood (Negative) Urine Nitrite (Negative) Urine Bilirubin (Negative) Urine Urobilinogen (Negative) Ur Leukocyte Esterase (Negative) Urine WBC (Auto) (0-5) /hpf Urine RBC (Auto) (0-4) /hpf U Hyaline Cast (Auto) (0-5) /lpf U Epithel Cells (Auto) (0-5) /lpf Urine Bacteria (Auto) (Negative) Salicylates < 1.7 L (2.8-20) mg/dl Urine Opiates Screen (Neg) Ur Methadone, Qual (Neg) Acetaminophen < 2 L (10-30) ug/ml Urine Barbiturates (Neg) Ur Phencyclidine (PCP) (Neg) U Amphetamin/Meth Scrn (Neg) MDMA (Ecstasy) Screen (Neg) U Benzodiazepines Scrn (Neg) Ur Cocaine Metabolite (Neg) U Marijuana (THC) Screen (Neg) Ethyl Alcohol mg/dL (0-3) mg/dl SARS-CoV-2, RNA, NAAT (NEGATIVE) 07/12/21 07/12/21 07/12/21 Range/Units 18:06 19:00 19:00 WBC (4.8-10.8) K/uL RBC (4.2-5.4) M/uL Hgb (12.0-16.0) g/dL Hct (37-47) % MCV (80-100) fL MCH (25-34) pg MCHC (32-36) g/dL RDW Std Deviation (36.4-46.3) fL RDW Coeff of Meg (11.5-14.5) % Plt Count (130-400) K/uL MPV (7.4-10.4) fL Immature Gran % (Auto) % Neut % (Auto) % Lymph % (Auto) % Dawson % (Auto) % Eos % (Auto) % Baso % (Auto) % Neut # (Auto) (1.4-6.5) K/uL Lymph # (Auto) (1.2-3.4) K/uL [place] # (Auto) (0.11-0.59) K/uL Eos # (Auto) (0-0.5) K/uL Baso # (Auto) (0-0.2) K/uL Immature Gran # (Auto) (0.00-0.02) K/uL PT (9.0-12.0) Seconds INR (0.9-1.1) APTT (21.0-31.0) Seconds PTT Ratio Sodium (136-145) mmol/L Potassium (3.5-5.1) mmol/L Chloride (98-107) mmol/L Carbon Dioxide (21-32) mmol/L Anion Gap (3-11) BUN (7-18) mg/dl Creatinine (0.6-1.2) mg/dl Est Cr Clr Drug Dosing ml/min Est GFR ( Amer) ml/min Est GFR (Non-Af Amer) ml/min BUN/Creatinine Ratio (10-20) Glucose (70-99) mg/dl Lactate (0.4-2.0) mmol/L Calcium (8.5-10.1) mg/dl Total Bilirubin (0.2-1) mg/dl AST (15-37) U/L ALT (12-78) U/L Alkaline Phosphatase (45-117) U/L Troponin I (0-0.045) ng/ml Total Protein (6.4-8.2) gm/dl Albumin (3.4-5.0) gm/dl Globulin (2.5-4.0) gm/dl Albumin/Globulin Ratio (0.9-2) HCG, Qual (Negative) Specimen Hemolysis Urine Color Yellow Urine Appearance Clear (Clear) Urine pH 5.5 (4.5-7.5) Ur Specific [place] 1.006 (1.000-1.030) Urine Protein Negative (Negative) Urine Glucose (UA) Negative (Negative) Urine Ketones Negative (Negative) Urine Blood 1+ H (Negative) Urine Nitrite Negative (Negative) Urine Bilirubin Negative (Negative) Urine Urobilinogen Negative (Negative) Ur Leukocyte Esterase Negative (Negative) Urine WBC (Auto) 0 (0-5) /hpf Urine RBC (Auto) 0-4 (0-4) /hpf U Hyaline Cast (Auto) 0 (0-5) /lpf U Epithel Cells (Auto) 0-5 (0-5) /lpf Urine Bacteria (Auto) Negative (Negative) Salicylates (2.8-20) mg/dl Urine Opiates Screen Neg (Neg) Ur Methadone, Qual Neg (Neg) Acetaminophen (10-30) ug/ml Urine Barbiturates Neg (Neg) Ur Phencyclidine (PCP) Neg (Neg) U Amphetamin/Meth Scrn Neg (Neg) MDMA (Ecstasy) Screen Neg (Neg) U Benzodiazepines Scrn Pos H (Neg) Ur Cocaine Metabolite Neg (Neg) U Marijuana (THC) Screen Neg (Neg) Ethyl Alcohol mg/dL < 3.0 (0-3) mg/dl SARS-CoV-2, RNA, NAAT (NEGATIVE) 07/12/21 Range/Units 19:53 WBC (4.8-10.8) K/uL RBC (4.2-5.4) M/uL Hgb (12.0-16.0) g/dL Hct (37-47) % MCV (80-100) fL MCH (25-34) pg MCHC (32-36) g/dL RDW Std Deviation (36.4-46.3) fL RDW Coeff of Meg (11.5-14.5) % Plt Count (130-400) K/uL MPV (7.4-10.4) fL Immature Gran % (Auto) % Neut % (Auto) % Lymph % (Auto) % Dawson % (Auto) % Eos % (Auto) % Baso % (Auto) % Neut # (Auto) (1.4-6.5) K/uL Lymph # (Auto) (1.2-3.4) K/uL [place] # (Auto) (0.11-0.59) K/uL Eos # (Auto) (0-0.5) K/uL Baso # (Auto) (0-0.2) K/uL Immature Gran # (Auto) (0.00-0.02) K/uL PT (9.0-12.0) Seconds INR (0.9-1.1) APTT (21.0-31.0) Seconds PTT Ratio Sodium (136-145) mmol/L Potassium (3.5-5.1) mmol/L Chloride (98-107) mmol/L Carbon Dioxide (21-32) mmol/L Anion Gap (3-11) BUN (7-18) mg/dl Creatinine (0.6-1.2) mg/dl Est Cr Clr Drug Dosing ml/min Est GFR ( Amer) ml/min Est GFR (Non-Af Amer) ml/min BUN/Creatinine Ratio (10-20) Glucose (70-99) mg/dl Lactate (0.4-2.0) mmol/L Calcium (8.5-10.1) mg/dl Total Bilirubin (0.2-1) mg/dl AST (15-37) U/L ALT (12-78) U/L Alkaline Phosphatase (45-117) U/L Troponin I (0-0.045) ng/ml Total Protein (6.4-8.2) gm/dl Albumin (3.4-5.0) gm/dl Globulin (2.5-4.0) gm/dl Albumin/Globulin Ratio (0.9-2) HCG, Qual (Negative) Specimen Hemolysis Urine Color Urine Appearance (Clear) Urine pH (4.5-7.5) Ur Specific [place] (1.000-1.030) Urine Protein (Negative) Urine Glucose (UA) (Negative) Urine Ketones (Negative) Urine Blood (Negative) Urine Nitrite (Negative) Urine Bilirubin (Negative) Urine Urobilinogen (Negative) Ur Leukocyte Esterase (Negative) Urine WBC (Auto) (0-5) /hpf Urine RBC (Auto) (0-4) /hpf U Hyaline Cast (Auto) (0-5) /lpf U Epithel Cells (Auto) (0-5) /lpf Urine Bacteria (Auto) (Negative) Salicylates (2.8-20) mg/dl Urine Opiates Screen (Neg) Ur Methadone, Qual (Neg) Acetaminophen (10-30) ug/ml Urine Barbiturates (Neg) Ur Phencyclidine (PCP) (Neg) U Amphetamin/Meth Scrn (Neg) MDMA (Ecstasy) Screen (Neg) U Benzodiazepines Scrn (Neg) Ur Cocaine Metabolite (Neg) U Marijuana (THC) Screen (Neg) Ethyl Alcohol mg/dL (0-3) mg/dl SARS-CoV-2, RNA, NAAT NEGATIVE (NEGATIVE) Imaging Data Attestation: I personally reviewed and interpreted this imaging study as follows: My Impression: Chest x-rayno acute infiltrate, failure, pneumothorax seen Radiologist's Impression: Chest X-Ray 07/12/21 15:32 XR chest 1V portable CLINICAL HISTORY: Chest Pain. COMPARISON STUDY: 06/13/2021 TECHNIQUE: 1 view of the chest FINDINGS: Single frontal view of the chest demonstrates the cardiomediastinal silhouette to be within normal limits. A Port-A-Cath is in place. The lungs are clear of alveolar opacities. There is no evidence for pleural effusion. There is no evidence for vascular congestion. There is no acute osseous pathology. IMPRESSION: No acute cardiopulmonary disease. There is no significant interval change. ACT 112: Negative or not required by law. Electronically signed by: Loki Harrell M.D. 07/12/2021 4:[address] 07/12/21 17:39 CT head/brain wo con CLINICAL HISTORY: confusion COMPARISON STUDY: No previous studies for comparison. CT DOSE: 1074.96 mGy.cm TECHNIQUE: Standard CT of the Brain was performed without IV contrast. A dose lowering technique was utilized adhering to the principles of ALARA. FINDINGS: Extraaxial space: There is no evidence for subdural hematoma. There are no extra-axial fluid collections. Ventricles and cisterns: The ventricles are normal in size and configuration. There is no evidence for midline shift or mass effect. Parenchyma: There is no subarachnoid or intraparenchymal hemorrhage. There is no evidence for an acute infarct or cerebral edema. There is homogeneous attenuation of the brain parenchyma. There are no gross mass lesions. 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 There is no evidence for an acute fracture. The visualized paranasal sinuses are clear. The mastoid air cells are clear bilaterally. Soft tissues: There is no evidence for focal soft tissue swelling. IMPRESSION: No acute intracerebral pathology. ACT 112: Negative or not required by law. Electronically signed by: Loki Harrell M.D. 07/12/2021 6:40 PM ECG Data Attestation: I personally reviewed and interpreted this ECG as follows: Indication: + altered mental status Rate (beats per minute): 87 Rhythm: + normal sinus ECG Intervals/blocks: + Normal QRS, + Normal QT and + Normal [place] ECG [place]: + Normal ECG ST segments: + Normal ST segments ECG Findings: no PACs or no PVCs Comparison ECG Date: from (06/13/21) [facility] Narrative This patient comes in as described above. She has been confused for the last approximately 6 hours. She has a history of similar episodes the last was a month ago, she was admitted and her mental status cleared while she was in the hospital. It was thought to been related to medications and pain at the time although she has multiple other medical problems including hypertension and history of hypertensive emergency as well as lupus. In light of this, a significant work-up was done. I did order for monitoring coordinator we did access her a port gave her hydration check multiple blood testing as well as a CAT scan of her head. She was reassessed frequently. Her blood pressure did come down with out any treatment to 162/90 and therefore I do not think is likely hypertensive emergency/encephalopathy. CAT scan of her head is unremarkable. She has no significant electrolyte or metabolic abnormalities. I do not find any evidence to suggest infection. This may be related to medications or potentially her underlying lupus. I did consult Dr. Tejada to see her in the ED for these measures. Continuous cardiac monitoring: Orders placed in EMR for continuous cardiac monitoring. Upon my interpretation she was noted to be in normal sinus rhythm with a rate of 85. Impression & Plan Change in mental status, Tension headache, Confusion, Lupus, Lab test negative for COVID-19 virus Discharge Plan Visit Data Chief Complaint: Cardiac Assessment Stated Complaint: SEVERE CONFUSION/ELEVATED B/P 170/116 ED Provider: Pio Cannon Discharge Problem: Change in mental status, Tension headache, Confusion, Lupus, Lab test negative for COVID-19 virus Forms Stand Alone Forms: My [facility] Prescriptions Prescriptions: No Action losartan 100 mg tablet 50 mg PO DAILY RF: 0 famotidine 20 mg tablet 20 mg PO BID RF: 0 Linzess 290 mcg capsule 290 mcg PO DAILY RF: 0 carvedilol 12.5 mg tablet 12.5 mg PO BID RF: 0 chlorthalidone 25 mg tablet 25 mg PO DAILY RF: 0 baclofen 10 mg tablet 20 mg PO TID PRN (Reason: Muscle Spasm) RF: 0 gabapentin 300 mg Capsule 900 mg PO TID Qty: 30 RF: 0 levothyroxine 25 mcg tablet 25 mcg PO QAM RF: 0 ondansetron HCl 4 mg tablet 4 mg PO DAILY PRN (Reason: Nausea And Vomiting) RF: 0 lubiprostone [Amitiza] 24 mcg capsule 24 mcg PO BID RF: 0 alprazolam 1 mg tablet 1 mg PO TID PRN (Reason: Anxiety) RF: 0 fluoxetine 20 mg capsule 40 mg PO DAILY RF: 0 clonidine HCl 0.1 mg tablet 0.1 mg PO DAILY PRN (Reason: High Systolic Blood Pressure. ) RF: 0 metoprolol tartrate [Lopressor] 50 mg tablet 50 mg PO DAILY RF: 0 furosemide [Lasix] 20 mg tablet 20 mg PO DAILY RF: 0 Emgality Pen 120 mg/mL pen injector 120 mg SUBCUT MO RF: 0 Referrals Referrals: Matt Adame DO [Primary Care Provider] -
[2021-07-12 18:17] LABS: Basophils # (auto) 0.02 K/uL (0-0.2); Basophils % (auto) 0.2 %; Eosinophils # (auto) 0.02 K/uL (0-0.5); Eosinophils % (auto) 0.2 %; Hemoglobin 11.5 g/dL (12.0-16.0); Immature Granulocytes # (auto) 0.02 K/uL (0.00-0.02); Immature Granulocytes % (auto) 0.2 %; Lymphocytes # (auto) 1.28 K/uL (1.2-3.4); Lymphocytes % (auto) 9.8 %; Mean Corpuscular Hemoglobin 31.3 pg (25-34); Mean Corpuscular Hgb Conc 33.8 g/dL (32-36); Mean Corpuscular Volume 92.6 fL (80-100); Mean Platelet Volume 10.1 fL (7.4-10.4); Monocytes % (auto) 6.9 %; Neutrophils # (auto) 10.87 K/uL (1.4-6.5); Neutrophils % (auto) 82.7 %; Platelet Count 303 K/uL (130-400); RDW Coefficient of Variation 13.1 % (11.5-14.5); RDW Standard Deviation 44.3 fL (36.4-46.3); Red Blood Count 3.67 M/uL (4.2-5.4); White Blood Count 13.11 K/uL (4.8-10.8)
[2021-07-12 18:30] LABS: INR 1.1 (0.9-1.1); Partial Thromboplastin Ratio 1.2; Partial Thromboplastin Time 32.8 Seconds (21.0-31.0); Prothrombin Time 11.4 Seconds (9.0-12.0)
[2021-07-12 18:42] LABS: Pregnancy Test, Serum Negative (Negative)
--- NOTE | 2021-07-12 18:42 | CT Scan Report ---
CT head/brain wo con CLINICAL HISTORY: confusion COMPARISON STUDY: No previous studies for comparison. CT DOSE: 1074.96 mGy.cm TECHNIQUE: Standard CT of the Brain was performed without IV contrast. A dose lowering technique was utilized adhering to the principles of ALARA. FINDINGS: Extraaxial space: There is no evidence for subdural hematoma. There are no extra-axial fluid collecti ons. Ventricles and cisterns: The ventricles are normal in size and configuration. There is no evidence f or midline shift or mass effect. Parenchyma: There is no subarachnoid or intraparenchymal hemorrhage. There is no evidence for an acu te infarct or cerebral edema. There is homogeneous attenuation of the brain parenchyma. There are no gross mass lesions. 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 There is no evidence for an acute fracture. The visualized paranasal sinuses are clear. The mastoid air cells are clear bilatera lly. Soft tissues: There is no evidence for focal soft tissue swelling. IMPRESSION: No acute intracerebral pathology. ACT 112: Negative or not required by law. Electronically signed by: Loki Harrell M.D. 07/12/2021 6:40 PM
[2021-07-12 18:46] LABS: Acetaminophen < 2 ug/ml (10-30); Salicylate < 1.7 mg/dl (2.8-20)
[2021-07-12 18:47] LABS: Alanine Aminotransferase 17 U/L (12-78); Aspartate Aminotransferase 17 U/L (15-37); BUN Creatinine Ratio 11.4 (10-20); Blood Urea Nitrogen 9 mg/dl (7-18); Carbon Dioxide 21 mmol/L (21-32); Chloride 105 mmol/L (98-107); Creatinine Clr Calc Pharmacy 122.8 ml/min; Est GFR (African American) 106.9 ml/min; Est GFR (Non-African American) 92.2 ml/min; Glucose 89 mg/dl (70-99); Potassium 3.9 mmol/L (3.5-5.1); Sodium 134 mmol/L (136-145)
[2021-07-12 18:50] LABS: Albumin Globulin Ratio 0.6 (0.9-2); Alkaline Phosphatase 79 U/L (45-117); Bilirubin,Total 0.7 mg/dl (0.2-1); Globulin 4.8 gm/dl (2.5-4.0); Total Protein 7.8 gm/dl (6.4-8.2); Troponin I < 0.015 ng/ml (0-0.045)
[2021-07-12] MEDS ORDERED: KETOROLAC TROMETHAMINE 15 MG/ML VIAL IV ONE (19:10)
[2021-07-12 19:15] LABS: Appearance Urine Clear (Clear); Bacteria Urine Automated Negative (Negative); Bilirubin Urine Negative (Negative); Blood Urine 1+ (Negative); Cast Urine Automated 0 /lpf (0-5); Color Urine Yellow; Epithelial Cell Urine Auto 0-5 /lpf (0-5); Glucose Urine UA Negative (Negative); Ketones Urine Negative (Negative); Leukocyte Esterase Urine Negative (Negative); Nitrite Urine Negative (Negative); Protein Urine Negative (Negative); RBC Urine Automated 0-4 /hpf (0-4); Specific Gravity Urine 1.006 (1.000-1.030); Urobilinogen Urine Negative (Negative); WBC Urine Automated 0 /hpf (0-5); pH Urine 5.5 (4.5-7.5)
[2021-07-12 19:33] LABS: Amphetamines+Metham, Urine Neg (Neg); Barbiturates, Urine Neg (Neg); Benzodiazepine, Urine Pos (Neg); Cocaine, Urine Neg (Neg); MDMA (Ecstacy), Urine Neg (Neg); Methadone, Urine Neg (Neg); Opiate, Urine Neg (Neg); Phencyclidine, Urine Neg (Neg)
[2021-07-12] MEDS ORDERED: carvediloL 12.5 MG TAB PO ONE (20:50)
[2021-07-12] MEDS ORDERED: cloNIDine HCL 0.1 MG TAB PO ONE (20:51)
--- NOTE | 2021-07-12 21:18 | History & Physical Report ---
Date of Service July 12, 2021 Assessment & Plan (1) Systemic lupus: Plan: Lupus exacerbation/fibromyalgia- Continue routine medications Place on Solu-Medrol 40 mg IV every 8 hours and follow response (2) Poorly-controlled hypertension: Plan: Unclear if patient has taken her medications today Give carvedilol 12.5 mg p.o. now and clonidine 0.1 mg p.o. now Lopressor 5 mg IV every 4 hours as needed systolic blood pressure greater than 160 (3) Peptic ulcer disease: Plan: Continue famotidine 10 mg p.o. twice daily (4) Hypothyroid: Plan: Continue levothyroxine 25 mcg every morning (5) Depression: Plan: Depression with anxiety- Continue alprazolam as needed, fluoxetine. discussed with patien to talk with her provider about considering a change of fluoxetine to duloxetine to help with her chronic pain (6) Chronic pain syndrome: Plan: See above (7) Fibromyalgia: Plan: See above History of Present Illness Chief Complaint: The patient presents to the emergency department for assessment of confusion, generalized myalgias and arthralgias and elevated blood pressure Primary Care Provider: Matt Adame DO The patient is a 40-year-old female with a past medical history including hypertensive urgency/emergency, poorly controlled hypertension, peptic ulcer disease, systemic lupus, serositis, hypothyroidism, hematemesis, depression, lupus anticoagulant disorder, pulmonary embolism and fibromyalgia. She is here in the ED with family, who reports that she has had worsening confusion since around noon, forgetfulness, generalized muscle aches and arthralgias. The patient feels that this is a flare of her lupus. Unclear if she is remember to take her medications this morning or not. Allergies Allergy/AdvReac Type Severity Reaction Status Date / Time dexamethasone Allergy Intermediate HIVES Verified 06/13/21 17:40 latex Allergy Intermediate HIVES Verified 06/13/21 17:40 pregabalin Allergy Intermediate FACE AND Verified 06/13/21 17:40 LIPS SWELLED Sulfa (Sulfonamide Allergy Intermediate LUPUS Verified 06/13/21 17:40 Antibiotics) FLARE UP morphine Allergy Mild local Verified 06/13/21 17:40 reaction at site duloxetine AdvReac Intermediate SEROTONIN Verified 06/13/21 17:40 SYNDROME escitalopram AdvReac Intermediate WENT CRAZY Verified 06/13/21 17:40 sertraline [From Zoloft] AdvReac Intermediate WENT CRAZY Verified 06/13/21 17:40 Home Medications Medication Instructions Recorded Confirmed Type levothyroxine 25 mcg tablet 25 mcg PO QAM 07/10/19 07/12/21 History gabapentin 300 mg capsule 900 mg PO TID #30 cap 08/30/20 07/12/21 Rx lubiprostone 24 mcg capsule 24 mcg PO BID 05/08/21 07/12/21 History (Amitiza) ondansetron HCl 4 mg tablet 4 mg PO DAILY PRN 05/08/21 07/12/21 History alprazolam 1 mg tablet 1 mg PO TID PRN 06/13/21 07/12/21 History baclofen 10 mg tablet 20 mg PO TID PRN tab 06/19/21 07/12/21 History carvedilol 12.5 mg tablet 12.5 mg PO BID 06/19/21 07/12/21 History chlorthalidone 25 mg tablet 25 mg PO DAILY 06/19/21 07/12/21 History famotidine 20 mg tablet 20 mg PO BID 06/19/21 07/12/21 History linaclotide 290 mcg capsule 290 mcg PO DAILY 06/19/21 07/12/21 History (Linzess) losartan 100 mg tablet 50 mg PO DAILY tab 06/19/21 07/12/21 History clonidine HCl 0.1 mg tablet 0.1 mg PO DAILY PRN 07/12/21 07/12/21 History fluoxetine 20 mg capsule 40 mg PO DAILY 07/12/21 07/12/21 History furosemide 20 mg tablet (Lasix) 20 mg PO DAILY 07/12/21 07/12/21 History galcanezumab-gnlm 120 mg/mL 120 mg SUBCUT MO 07/12/21 07/12/21 History subcutaneous pen injector (Emgality Pen) metoprolol tartrate 50 mg tablet 50 mg PO DAILY 07/12/21 07/12/21 History (Lopressor) Past Med/Surg History Medical History Abdominal pain (10/10/14) Abdominal pain Acute confusion Anxiety Chest pain (04/04/14) Chest pain Chronic pain syndrome Dehydration Depression Fibromyalgia Gastritis Gastroparesis Headache History of kidney infection History of lupus History of lupus anticoagulant disorder History of migraine History of multiple miscarriages History of ovarian cyst History of umbilical hernia Hypertension Hypertensive urgency Hypothyroidism Intractable epigastric abdominal pain Lupus (04/04/14) Lupus nephritis Osteoarthritis Peptic ulcer disease Pleuritis (09/17/14) history of Poorly-controlled hypertension Post traumatic stress disorder Pulmonary embolism history of Urinary tract infection Surgical History H/O: hysterectomy History of tonsillectomy and adenoidectomy Hx of appendectomy Hx of cholecystectomy Port-A-Cath in place (08/29/20) Mediport Placement, Left Subclavian Vein Dr. 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 The review of systems is otherwise negative other than for that already noted above, and at least 10 systems have been reviewed. Physical Exam Physical Exam: The patient is awake, alert and oriented 3, well developed and well nourished, normocephalic and atraumatic, lying in bed and in no acute distress. HEENT--PERRL, EOMI, mucous membranes and oropharynx normal Neck--supple. No JVD. No bruits. Thyroid normal, trachea midline, no adenopathy. Heart--normal S1 and S2. No murmurs, rubs or gallops. Lungs--clear bilaterally, no respiratory distress, no accessory muscle use. Abdomen--normal bowel sounds and soft. Nontender. Nondistended. Extremities--no cyanosis or clubbing. No edema. Dermatologic--normal skin turgor, normal color, no abnormal lymph nodes, no rash. Neurologic--cranial nerves II through XII grossly intact. Rheumatologic--normal range of motion. Psychiatric--normal affect. Results & Data Results & Data ([facility]) Vital Signs (Past 12 Hours) Vital Signs Temp Pulse Pulse Resp BP BP Pulse Ox 07/12/21 19:10 90 18 99 07/12/21 19:03 90 20 162/90 H 100 07/12/21 15:28 37.4 C 90 18 178/105 H 98 Laboratory Results Laboratory Results WBC 13.11 K/uL (4.8-10.8) H 07/12/21 18:06 RBC 3.67 M/uL (4.2-5.4) L 07/12/21 18:06 Hgb 11.5 g/dL (12.0-16.0) L 07/12/21 18:06 Hct 34.0 % (37-47) L 07/12/21 18:06 MCV 92.6 fL (80-100) 07/12/21 18:06 MCH 31.3 pg (25-34) 07/12/21 18:06 MCHC 33.8 g/dL (32-36) 07/12/21 18:06 RDW Std Deviation 44.3 fL (36.4-46.3) 07/12/21 18:06 RDW Coeff of Meg 13.1 % (11.5-14.5) 07/12/21 18:06 Plt Count 303 K/uL (130-400) 07/12/21 18:06 MPV 10.1 fL (7.4-10.4) 07/12/21 18:06 Immature Gran % (Auto) 0.2 % 07/12/21 18:06 Neut % (Auto) 82.7 % 07/12/21 18:06 Lymph % (Auto) 9.8 % 07/12/21 18:06 [place] % (Auto) 6.9 % 07/12/21 18:06 Eos % (Auto) 0.2 % 07/12/21 18:06 Baso % (Auto) 0.2 % 07/12/21 18:06 Neut # (Auto) 10.87 K/uL (1.4-6.5) H 07/12/21 18:06 Lymph # (Auto) 1.28 K/uL (1.2-3.4) 07/12/21 18:06 [place] # (Auto) 0.90 K/uL (0.11-0.59) H 07/12/21 18:06 Eos # (Auto) 0.02 K/uL (0-0.5) 07/12/21 18:06 Baso # (Auto) 0.02 K/uL (0-0.2) 07/12/21 18:06 Immature Gran # (Auto) 0.02 K/uL (0.00-0.02) 07/12/21 18:06 PT 11.4 Seconds (9.0-12.0) 07/12/21 18:06 INR 1.1 (0.9-1.1) 07/12/21 18:06 APTT 32.8 Seconds (21.0-31.0) H 07/12/21 18:06 PTT Ratio 1.2 07/12/21 18:06 Sodium 134 mmol/L (136-145) L 07/12/21 18:06 Potassium 3.9 mmol/L (3.5-5.1) 07/12/21 18:06 Chloride 105 mmol/L (98-107) 07/12/21 18:06 Carbon Dioxide 21 mmol/L (21-32) 07/12/21 18:06 Anion Gap 8.0 (3-11) 07/12/21 18:06 BUN 9 mg/dl (7-18) 07/12/21 18:06 Creatinine 0.80 mg/dl (0.6-1.2) 07/12/21 18:06 Est Cr Clr Drug Dosing 122.8 ml/min 07/12/21 18:06 Est GFR ( Amer) 106.9 ml/min 07/12/21 18:06 Est GFR (Non-Af Amer) 92.2 ml/min 07/12/21 18:06 BUN/Creatinine Ratio 11.4 (10-20) 07/12/21 18:06 Glucose 89 mg/dl (70-99) 07/12/21 18:06 Lactate 0.4 mmol/L (0.4-2.0) 07/12/21 18:06 Calcium 9.0 mg/dl (8.5-10.1) 07/12/21 18:06 Total Bilirubin 0.7 mg/dl (0.2-1) 07/12/21 18:06 AST 17 U/L (15-37) 07/12/21 18:06 ALT 17 U/L (12-78) 07/12/21 18:06 Alkaline Phosphatase 79 U/L (45-117) 07/12/21 18:06 Troponin I < 0.015 ng/ml (0-0.045) 07/12/21 18:06 Total Protein 7.8 gm/dl (6.4-8.2) 07/12/21 18:06 Albumin 3.0 gm/dl (3.4-5.0) L 07/12/21 18:06 Globulin 4.8 gm/dl (2.5-4.0) H 07/12/21 18:06 Albumin/Globulin Ratio 0.6 (0.9-2) L 07/12/21 18:06 HCG, Qual Negative (Negative) 07/12/21 18:06 Specimen Hemolysis 07/12/21 18:06 Urine Color Yellow 07/12/21 19:00 Urine Appearance Clear (Clear) 07/12/21 19:00 Urine pH 5.5 (4.5-7.5) 07/12/21 19:00 Ur Specific [place] 1.006 (1.000-1.030) 07/12/21 19:00 Urine Protein Negative (Negative) 07/12/21 19:00 Urine Glucose (UA) Negative (Negative) 07/12/21 19:00 Urine Ketones Negative (Negative) 07/12/21 19:00 Urine Blood 1+ (Negative) H 07/12/21 19:00 Urine Nitrite Negative (Negative) 07/12/21 19:00 Urine Bilirubin Negative (Negative) 07/12/21 19:00 Urine Urobilinogen Negative (Negative) 07/12/21 19:00 Ur Leukocyte Esterase Negative (Negative) 07/12/21 19:00 Urine WBC (Auto) 0 /hpf (0-5) 07/12/21 19:00 Urine RBC (Auto) 0-4 /hpf (0-4) 07/12/21 19:00 U Hyaline Cast (Auto) 0 /lpf (0-5) 07/12/21 19:00 U Epithel Cells (Auto) 0-5 /lpf (0-5) 07/12/21 19:00 Urine Bacteria (Auto) Negative (Negative) 07/12/21 19:00 Salicylates < 1.7 mg/dl (2.8-20) L 07/12/21 18:06 Urine Opiates Screen Neg (Neg) 07/12/21 19:00 Ur Methadone, Qual Neg (Neg) 07/12/21 19:00 Acetaminophen < 2 ug/ml (10-30) L 07/12/21 18:06 Urine Barbiturates Neg (Neg) 07/12/21 19:00 Ur Phencyclidine (PCP) Neg (Neg) 07/12/21 19:00 U Amphetamin/Meth Scrn Neg (Neg) 07/12/21 19:00 MDMA (Ecstasy) Screen Neg (Neg) 07/12/21 19:00 U Benzodiazepines Scrn Pos (Neg) H 07/12/21 19:00 Ur Cocaine Metabolite Neg (Neg) 07/12/21 19:00 U Marijuana (THC) Screen Neg (Neg) 07/12/21 19:00 Ethyl Alcohol mg/dL < 3.0 mg/dl (0-3) 07/12/21 18:06 SARS-CoV-2, RNA, NAAT NEGATIVE (NEGATIVE) 07/12/21 19:53 Impressions Chest X-Ray 07/12/21 15:32 XR chest 1V portable CLINICAL HISTORY: Chest Pain. COMPARISON STUDY: 06/13/2021 TECHNIQUE: 1 view of the chest FINDINGS: Single frontal view of the chest demonstrates the cardiomediastinal silhouette to be within normal limits. A Port-A-Cath is in place. The lungs are clear of alveolar opacities. There is no evidence for pleural effusion. There is no evidence for vascular congestion. There is no acute osseous pathology. IMPRESSION: No acute cardiopulmonary disease. There is no significant interval change. ACT 112: Negative or not required by law. Electronically signed by: Loki Harrell M.D. 07/12/2021 4:[address] 07/12/21 17:39 CT head/brain wo con CLINICAL HISTORY: confusion COMPARISON STUDY: No previous studies for comparison. CT DOSE: 1074.96 mGy.cm TECHNIQUE: Standard CT of the Brain was performed without IV contrast. A dose lowering technique was utilized adhering to the principles of ALARA. FINDINGS: Extraaxial space: There is no evidence for subdural hematoma. There are no extra-axial fluid collections. Ventricles and cisterns: The ventricles are normal in size and configuration. There is no evidence for midline shift or mass effect. Parenchyma: There is no subarachnoid or intraparenchymal hemorrhage. There is no evidence for an acute infarct or cerebral edema. There is homogeneous attenuation of the brain parenchyma. There are no gross mass lesions. 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 There is no evidence for an acute fracture. The visualized paranasal sinuses are clear. The mastoid air cells are clear bilaterally. Soft tissues: There is no evidence for focal soft tissue swelling. IMPRESSION: No acute intracerebral pathology. ACT 112: Negative or not required by law. Electronically signed by: Loki Harrell M.D. 07/12/2021 6:40 PM Code Status & VTE Plan Code Status Full code VTE Prophylaxis Plan VTE Prophylaxis will be ordered: Yes PG Care Time/CCT Total # of Minutes Spent Total Time Spent with Patient: Total time spent is greater than 50% in coordination of care (as documented) at patient's floor/unit and/or counseling patient: Coding Level of Care Code INT OBSERVATION CARE 70M LVL 3 Diagnoses Systemic lupus M32.9 Poorly-controlled hypertension I10 Peptic ulcer disease K27.9 Hypothyroid E03.9 Depression F32.9 Chronic pain syndrome G89.4 Fibromyalgia M79.7
[2021-07-12] MEDS ORDERED: METOPROLOL TARTRATE 1 MG/ML VIAL IV PRN (21:28)
[2021-07-12] MEDS ORDERED: BACLOFEN 20 MG TAB PO PRN (22:59)
[2021-07-12] MEDS ORDERED: ONDANSETRON INJ 2 MG/ML 2 ML VIAL IV PRN (22:59)
[2021-07-12] MEDS ORDERED: ONDANSETRON 4 MG OD TAB PO PRN (22:59)
[2021-07-13] MEDS: ACETAMINOPHEN 325 MG TAB PO PRN ×2 (00:22→05:30)
[2021-07-13] MEDS: LUBIPROSTONE 8 MCG CAP PO SCH ×3 (00:22→20:26)
[2021-07-13] MEDS: FAMOTIDINE 20 MG TAB PO SCH ×3 (00:23→20:27)
[2021-07-13] MEDS: GABAPENTIN 300 MG CAP PO SCH ×4 (00:23→20:28)
[2021-07-13] MEDS: carvediloL 12.5 MG TAB PO SCH ×3 (00:24→20:28)
[2021-07-13] MEDS ORDERED: KETOROLAC TROMETHAMINE 15 MG/ML VIAL IV ONE (03:18)
[2021-07-13] MEDS: LEVOTHYROXINE SODIUM 25 MCG TABLET PO SCH (05:23)
[2021-07-13] MEDS: ALPRAZolam 0.5 MG TABLET PO PRN (05:30)
[2021-07-13 06:55] LABS: Basophils # (auto) 0.01 K/uL (0-0.2); Basophils % (auto) 0.1 %; Hematocrit (blood only) 33.6 % (37-47); Hemoglobin 11.3 g/dL (12.0-16.0); Immature Granulocytes # (auto) 0.04 K/uL (0.00-0.02); Immature Granulocytes % (auto) 0.3 %; Lymphocytes # (auto) 0.53 K/uL (1.2-3.4); Lymphocytes % (auto) 4.6 %; Mean Corpuscular Hemoglobin 31.3 pg (25-34); Mean Corpuscular Hgb Conc 33.6 g/dL (32-36); Mean Corpuscular Volume 93.1 fL (80-100); Monocytes # (auto) 0.48 K/uL (0.11-0.59); Monocytes % (auto) 4.1 %; Neutrophils # (auto) 10.53 K/uL (1.4-6.5); Neutrophils % (auto) 90.9 %; Platelet Count 268 K/uL (130-400); RDW Coefficient of Variation 13.2 % (11.5-14.5); RDW Standard Deviation 45.3 fL (36.4-46.3); Red Blood Count 3.61 M/uL (4.2-5.4); White Blood Count 11.59 K/uL (4.8-10.8)
[2021-07-13] MEDS: PENICILLIN G POTASSIUM 4 MU in DEXTROSE 5% 100 ML IV SCH ×2 (07:26→11:49)
[2021-07-13 07:35] LABS: Albumin Level 2.8 gm/dl (3.4-5.0); BUN Creatinine Ratio 12.7 (10-20); Calcium 8.5 mg/dl (8.5-10.1); Creatinine Clr Calc Pharmacy 127.1 ml/min; Est GFR (African American) 117.5 ml/min; Est GFR (Non-African American) 101.3 ml/min; Magnesium 2.2 mg/dl (1.8-2.4)
--- NOTE | 2021-07-13 07:35 | Electrocardiogram Report ---
Test Reason : Blood Pressure : / mmHG Vent. Rate : 087 BPM Atrial Rate : 087 BPM P-R Int : 162 ms QRS Dur : 092 ms QT Int : 392 ms P-R-T Axes : 050 028 054 degrees QTc Int : 471 ms Normal sinus rhythm Normal ECG When compared with ECG of 13-JUN-2021 19:00, Vent. rate has increased BY 29 BPM Confirmed by Kd Mayers ([id number]) on 07/13/2021 7:34:42 AM Referred By: REFERRED SELF Confirmed By:Flavio Mayers
[2021-07-13 07:38] LABS: Albumin Globulin Ratio 0.6 (0.9-2); Bilirubin,Total 0.9 mg/dl (0.2-1); Globulin 4.7 gm/dl (2.5-4.0); Total Protein 7.5 gm/dl (6.4-8.2)
[2021-07-13] MEDS: ENOXAPARIN INJ 40 MG/0.4 ML SYR SQ SCH (08:49)
[2021-07-13] MEDS: FLUoxetine HCL 20 MG CAP PO SCH (08:51)
[2021-07-13] MEDS: FUROSEMIDE 20 MG TAB PO SCH (08:51)
[2021-07-13] MEDS: LINACLOTIDE 145 MCG CAPSULE PO SCH (08:52)
[2021-07-13] MEDS: LOSARTAN POTASSIUM 50 MG TAB PO SCH (08:52)
[2021-07-13] MEDS ORDERED: POLYETHYLENE (MIRALAX) 17 GM PACK PO SCH (09:00)
[2021-07-13] MEDS ORDERED: METOPROLOL TARTRATE 50 MG TAB PO SCH (09:00)
[2021-07-13] MEDS: KETOROLAC TROMETHAMINE 15 MG/ML VIAL IV PRN (11:48)
[2021-07-13] MEDS ORDERED: bisacodyL 5 MG TABEC PO STA (12:03)
[2021-07-13] MEDS ORDERED: bisacodyL 5 MG TABEC PO PRN (12:04)
[2021-07-13] MEDS ORDERED: traMADol HCL 50 MG TABLET PO SCH (13:00)
[2021-07-13] MEDS: ACETAMINOPHEN 325 MG TAB PO SCH ×3 (14:07→20:27)
[2021-07-13] MEDS: MAGNESIUM OXIDE 400 MG TAB PO SCH ×2 (14:07→20:28)
[2021-07-13] MEDS: MULTIVITAMIN TAB PO SCH (14:08)
--- NOTE | 2021-07-13 15:39 | Hospitalist Progress Note ---
Date of Service July 13, 2021 Assessment & Plan (1) Systemic lupus: Plan: (1) Altered mental status: Plan: 40 y/o F w/ complex PMHx of CVA, anxiety/depression, SLE, stress-induced CMP, fibromyalgia, multiple HTN urgency admissions, and prior AMS 2/2 sedating medications who presents for altered mental status Altered mental status - Almost completely resolved today, could have been due to somatopsychic versus hypertensive encephalopathy. Unknown etiology at this time. - Utox- +benzodiazepines (2) Chronic pain - Addressing today with morphine PRN and Toradol as needed -Attempted scheduled tramadol today, but provide no relief according to patient. - Pt suffering from chronic pain due to rheumatologic disease, fibromyalgia, and anxiety with strong concern for growing opioid dependence and tolerance. - Largely medically stable, anticipated discharge tomorrow in late AM -Vitamin D ordered -Given multivitamin (3) Chest pain: Plan: Chest pain - Takotsubo cardiomyopathy at 04/2021 admission, repeat echo during 05/2021 admission showed return of normal EF - 05/09/21 cardiac cath did not show any evidence of CAD - Pt's GI suspects visceral hypersensitivity contributes to her abdominal pain, trigger points may also be in play. Chest pain differential also includes costochondritis. - Serial troponins negative, EKG negative. Low suspicion for acute ischemic injury. (4) Fibromyalgia: Plan: - Gabapentin 300 mg TID continuing (5) Systemic lupus: Plan: Has multisystem hx including recurrent miscarriages, HTN, perhaps related to S LE. - will need outpt f/u; has apt 09/2021 (6) Hypothyroid: Plan: - not on medication. TSH wnl 2.01. hx of Tea's per [facility] documentation (7) Poorly-controlled hypertension: Plan: Patient in the 170s at the ED upon arrival, however, clinically been normal since admission to the hospital. -Currently on chlorthalidone, losartan, and carvedilol. -Metoprolol as needed ordered for hypertensive urgency with pressures over 180. (8) Depression and anxiety Plan: -Continue fluoxetine and Xanax 3 times daily as needed for depression anxiety. Plan: FEN/GI: regular diet ppx: SCDs+Lovenox code: full dispo: med/surg tele (2) Poorly-controlled hypertension: (3) Peptic ulcer disease: (4) Hypothyroid: (5) Depression: Plan: Depression with anxiety- Continue alprazolam as needed, fluoxetine. discussed with patien to talk with her provider about considering a change of fluoxetine to duloxetine to help with her chronic pain (6) Chronic pain syndrome: Plan: See above (7) Fibromyalgia: Plan: See above Admission and Anticipated Discharge Date Admission Date: July 12, 2021 Supervising Physician Co-Signing Physician Notes Patient was seen and examined at bedside. Agree with above note. Vitals as noted. Patient has been coming back to the hospital with encephalopathy. Differential diagnosis is broad, includes HTN encephaloapthy, complex migraine, polypharmacy, psychosomatic disorder, malingering. Though patient complains of migraine headaches about 15x a month, she did not report any headaches prior nor during this episode. She reports she does not recall most moments once she became confused, however she recalls vividly the moments prior to her confusion like pouring water nina the garbage instead of the sink and calling a friend for help. Main complain is her chest pain. Will try to control it with tramadol around the clock and morphine with breakthrough pain. Patient will need to followup with pain management. Will closely monitor patient overnight. In regards to her BP, will recommend restarting amlodipine HS and perhaps changing her ARB to HS. Subjective Patient seen this morning at bedside. Patient claims that she is on the verge of tears as her pain is currently a 9 out of 10 and constant. She was here 1 month ago where they had given her morphine and Toradol as needed for pain and she is requesting this cocktail to manage her pain as it worked well last time. It seems the patient enters the cycles of pain causing anxiety which may correlate with her bouts of confusion that leads her to come to the hospital. Patient states she does not remember hardly anything yesterday from noon onward. She does remember that 11:00 in the morning she dumped some water from a water bottle in the trash can and threw the empty bottle into the sink. This led her to call a friend to watch her because she felt like she was going to become incr easingly more confused. Today patient seems to have returned to her baseline mentation. She is aware of where she is, why she is here, who she is, and what day it is. Currently patient is complaining of constant chest pain that has been present for months as well as abdominal pain that has developed over the past few days. She has not had a bowel movement in 5 days. This is typical for her as she has a GI motility disorder. Otherwise patient has been having bouts of anxiety due to her pain. Patient has no other complaints at this time Review of Systems Review of Systems: All systems reviewed & are unremarkable except as noted in HPI & below Physical Exam Constitutional: well developed, well nourished and + obese; no acute distress Eyes: PERRL, conjunctivae normal, anicteric sclerae Neck: trachea midline, no thyromegaly Respiratory: normal respiratory effort, lungs clear to auscultation Cardiovascular: Rate/Rhythm: regular rate and regular rhythm Extremities: + edema (Trace) Gastrointestinal (Abdomen): Inspection/Auscultation: abdomen normal to inspection Percussion/Palpation: + abdomen tender (Lower quadrants bilaterally) Bowel sounds absent Skin: no rashes, warm and dry Psychiatric: Orientation: alert and oriented x 3 Affect: + anxious affect Results & Data Results & Data ([facility]) Vital Signs (Past 12 Hours) Vital Signs Temp Pulse Pulse Resp BP Pulse Ox 07/13/21 15:24 36.9 C 76 19 92/60 L 93 07/13/21 11:53 36.6 C 82 16 113/71 100 07/13/21 08:50 66 132/79 07/13/21 07:42 36.5 C 57 L 16 108/71 96 07/13/21 06:16 59 L
--- NOTE | 2021-07-13 20:11 | Billing Data ---
Date of Service July 13, 2021 Coding Level of Care Code 25482 Subseq Hosp Care Lvl 2
[2021-07-13] MEDS: POLYETHYLENE (MIRALAX) 17 GM PACK PO SCH (20:26)
[2021-07-13] MEDS: MoRPHine SULFATE 2 MG/ML CARP IV PRN (23:19)
[2021-07-14] MEDS: ACETAMINOPHEN 325 MG TAB PO SCH ×4 (00:03→14:12)
[2021-07-14] MEDS: KETOROLAC TROMETHAMINE 15 MG/ML VIAL IV PRN (02:34)
[2021-07-14] MEDS: MoRPHine SULFATE 2 MG/ML CARP IV PRN (04:03)
[2021-07-14] MEDS: LEVOTHYROXINE SODIUM 25 MCG TABLET PO SCH (05:55)
[2021-07-14 06:43] LABS: Basophils # (auto) 0.03 K/uL (0-0.2); Basophils % (auto) 0.4 %; Eosinophils # (auto) 0.11 K/uL (0-0.5); Eosinophils % (auto) 1.6 %; Hemoglobin 10.5 g/dL (12.0-16.0); Immature Granulocytes # (auto) 0.02 K/uL (0.00-0.02); Immature Granulocytes % (auto) 0.3 %; Lymphocytes # (auto) 1.29 K/uL (1.2-3.4); Lymphocytes % (auto) 18.9 %; Mean Corpuscular Hemoglobin 30.9 pg (25-34); Mean Corpuscular Hgb Conc 32.8 g/dL (32-36); Mean Corpuscular Volume 94.1 fL (80-100); Mean Platelet Volume 10.4 fL (7.4-10.4); Monocytes % (auto) 10.3 %; Neutrophils # (auto) 4.66 K/uL (1.4-6.5); Neutrophils % (auto) 68.5 %; Platelet Count 228 K/uL (130-400); RDW Coefficient of Variation 13.9 % (11.5-14.5); RDW Standard Deviation 47.8 fL (36.4-46.3); White Blood Count 6.81 K/uL (4.8-10.8)
[2021-07-14 07:10] LABS: Albumin Level 2.6 gm/dl (3.4-5.0); BUN Creatinine Ratio 13.4 (10-20); Calcium 8.2 mg/dl (8.5-10.1); Creatinine Clr Calc Pharmacy 72.4 ml/min; Est GFR (African American) 55.8 ml/min; Est GFR (Non-African American) 48.1 ml/min; Magnesium 2.2 mg/dl (1.8-2.4); Potassium 3.9 mmol/L (3.5-5.1)
[2021-07-14 07:12] LABS: Albumin Globulin Ratio 0.6 (0.9-2); Bilirubin,Total 0.7 mg/dl (0.2-1); Globulin 4.2 gm/dl (2.5-4.0); Total Protein 6.8 gm/dl (6.4-8.2)
[2021-07-14] MEDS ORDERED: SODIUM CHLORIDE 0.9% 1000ML 500 ML IV ONE (08:08)
[2021-07-14] MEDS ORDERED: MoRPHine SULFATE 4 MG/ML 1 ML CARP\\VIAL IV PRN ×2 (08:11→08:27)
[2021-07-14] MEDS: ENOXAPARIN INJ 40 MG/0.4 ML SYR SQ SCH (08:22)
[2021-07-14] MEDS: POLYETHYLENE (MIRALAX) 17 GM PACK PO SCH (08:22)
[2021-07-14] MEDS: MULTIVITAMIN TAB PO SCH (08:24)
[2021-07-14] MEDS: GABAPENTIN 300 MG CAP PO SCH ×2 (08:24→14:12)
[2021-07-14] MEDS: carvediloL 12.5 MG TAB PO SCH (08:25)
[2021-07-14] MEDS: FAMOTIDINE 20 MG TAB PO SCH (08:25)
[2021-07-14] MEDS: LOSARTAN POTASSIUM 50 MG TAB PO SCH (08:26)
[2021-07-14] MEDS: FUROSEMIDE 20 MG TAB PO SCH (08:26)
[2021-07-14] MEDS: LINACLOTIDE 145 MCG CAPSULE PO SCH (08:26)
[2021-07-14] MEDS: MAGNESIUM OXIDE 400 MG TAB PO SCH (08:27)
[2021-07-14] MEDS: FLUoxetine HCL 20 MG CAP PO SCH (08:28)
[2021-07-14] MEDS: ALPRAZolam 0.5 MG TABLET PO PRN (08:38)
[2021-07-14] MEDS: LUBIPROSTONE 8 MCG CAP PO SCH (09:16)
--- NOTE | 2021-07-14 12:02 | Discharge Summary ---
Date of Service July 14, 2021 Admission HPI Per Admitting Provider The patient is a 40-year-old female with a past medical history including hypertensive urgency/emergency, poorly controlled hypertension, peptic ulcer disease, systemic lupus, serositis, hypothyroidism, hematemesis, depression, lupus anticoagulant disorder, pulmonary embolism and fibromyalgia. She is here in the ED with family, who reports that she has had worsening confusion since around noon, forgetfulness, generalized muscle aches and arthralgias. The patient feels that this is a flare of her lupus. Unclear if she is remember to take her medications this morning or not. Principal Diagnosis Altered mental status Discharge Exam Constitutional well developed, well nourished and + obese; no acute distress Eyes PERRL, conjunctivae normal, anicteric sclerae Neck trachea midline, no thyromegaly Respiratory normal respiratory effort, lungs clear to auscultation Cardiovascular Rate/Rhythm: regular rate and regular rhythm Extremities: + edema (Trace) Gastrointestinal (Abdomen) Inspection/Auscultation: abdomen normal to inspection Percussion/Palpation: + abdomen tender (Lower quadrants bilaterally) Skin no rashes, warm and dry Psychiatric Orientation: alert and oriented x 3 Affect: euthymic affect Discharge Data Allergies Allergy/AdvReac Type Severity Reaction Status Date / Time dexamethasone Allergy Intermediate HIVES Verified 06/13/21 17:40 latex Allergy Intermediate HIVES Verified 06/13/21 17:40 pregabalin Allergy Intermediate FACE AND Verified 06/13/21 17:40 LIPS SWELLED Sulfa (Sulfonamide Allergy Intermediate LUPUS Verified 06/13/21 17:40 Antibiotics) FLARE UP morphine Allergy Mild local Verified 06/13/21 17:40 reaction at site duloxetine AdvReac Intermediate SEROTONIN Verified 06/13/21 17:40 SYNDROME escitalopram AdvReac Intermediate WENT CRAZY Verified 06/13/21 17:40 sertraline [From Zoloft] AdvReac Intermediate WENT DEBI Verified 06/13/21 17:40 Consultations 07/12/21 19:12 ED Decision to Admit Stat Ordered Studies 07/12/21 17:39 CT head/brain wo con Stat Hospital Course (1) Systemic lupus: (1) Altered mental status: Plan: 40 y/o F w/ complex PMHx of CVA, anxiety/depression, SLE, stress-induced CMP, fibromyalgia, multiple HTN urgency admissions, and prior AMS 2/2 sedating medications who presents for altered mental status Altered mental status - Almost completely resolved today, could have been due to somatopsychic versus hypertensive encephalopathy. Unknown etiology at this time. - Utox- +benzodiazepines -Resolved (2) Chronic pain -Sent home with 2 weeks worth of scheduled tramadol and as needed oxycodone for breakthrough pain. - Pt suffering from chronic pain due to rheumatologic disease, fibromyalgia, and anxiety with strong concern for growing opioid dependence and tolerance. - Largely medically stable, anticipated discharge tomorrow in late AM -Vitamin D ordered -Given multivitamin, recommend taking daily multivitamin containing vitamin B2 and D3. Also recommend magnesium supplementation. (3) Chest pain: Plan: Chest pain - Takotsubo cardiomyopathy at 04/2021 admission, repeat echo during 05/2021 admission showed return of normal EF - 05/09/21 cardiac cath did not show any evidence of CAD - Pt's GI suspects visceral hypersensitivity contributes to her abdominal pain, trigger points may also be in play. Chest pain differential also includes costochondritis. - Serial troponins negative, EKG negative. Low suspicion for acute ischemic injury. (4) Fibromyalgia: Plan: - Gabapentin 300 mg TID continuing (5) Systemic lupus: Plan: Has multisystem hx including recurrent miscarriages, HTN, perhaps related to SLE. - will need outpt f/u; has apt 09/2021 (6) Hypothyroid: Plan: - not on medication. TSH wnl 2.01. hx of Tea's per [facility] documentation (7) Poorly-controlled hypertension: Plan: Patient in the 170s at the ED upon arrival, however, clinically been normal since admission to the hospital. -Currently on chlorthalidone, losartan, and carvedilol. -Metoprolol as needed ordered for hypertensive urgency with pressures over 180. (8) Depression and anxiety Plan: -Continue fluoxetine and Xanax 3 times daily as needed for depression anxiety. Plan: FEN/GI: regular diet ppx: SCDs+Lovenox code: full dispo: med/surg tele (2) Poorly-controlled hypertension: (3) Peptic ulcer disease: (4) Hypothyroid: (5) Depression: Depression with anxiety- Continue alprazolam as needed, fluoxetine. discussed with patien to talk with her provider about considering a change of fluoxetine to duloxetine to help with her chronic pain (6) Chronic pain syndrome: See above (7) Fibromyalgia: See above Total Time Total Time Spent Total Time Spent (In Minutes): 30 Discharge Plan Discharge Items Patient Disposition: Home - Self-Care Reason For Visit: lupus exacerbation Discharge Diagnosis: Altered mental status Activity: Resume your previous activity Non-emergency contact: Primary Care Provider Call non-emergency contact if: you have any medication questions, your symptoms worsen, your pain is not controlled, your pain is worsening, your pain is unusual for you, your pain is concerning for you, your temperature is above 101 and your temperature is above 101.5 Follow-up/Referrals: Matt Adame DO [Primary Care Provider] - Diet: Regular Addtl Attending Provider Instructions: You were seen in the hospital for altered mental status. Per witness, he began having symptoms of confusion at noon on 07/12. You are brought to the emergency department where you had a work-up. You have had multiple episodes of similar events in the past. At this time, what caused your altered mental status is not entirely known. Differential includes hypertensive encephalopathy, psychosomatic due to pain, or lupus psychosis. While you are in the hospital you received pain medication to relieve your chronic pain, medications for your anxiety, and medications to control your blood pressure. On the day after your admission your mental status had returned to baseline. At this time we feel that it is safe for you to return home and follow-up with your primary care provider, Matt Adame, to discuss further management. We will be sending you home with scheduled tramadol and oxycodone for breakthrough pain. It is also recommended that you take a multivitamin as there has been some evidence that shows vitamin B2 as well as vitamin D can have some benefit for your chronic pain. You have an appointment with your psychiatrist as well as pain management on July 17, 2021. Keep this appointment. You have a follow-up appointment with your primary care provider on July which will be made for you. It has been a pleasure to be a part of your care and we wish you the best in your recovery. Pending Studies at Discharge: No Stand-Alone Forms: [facility], Smoking Cessation Medications and DC Order Prescriptions: New tramadol 50 mg tablet 50 mg PO Q8H 14 Days Qty: 42 RF: 0 oxycodone 5 mg tablet 5 mg PO Q8H PRN (Reason: severe pain (scale score 7-10)) Qty: 20 RF: 0 Continued losartan 100 mg tablet 50 mg PO DAILY RF: 0 famotidine 20 mg tablet 20 mg PO BID RF: 0 Linzess 290 mcg capsule 290 mcg PO DAILY RF: 0 carvedilol 12.5 mg tablet 12.5 mg PO BID RF: 0 chlorthalidone 25 mg tablet 25 mg PO DAILY RF: 0 baclofen 10 mg tablet 20 mg PO TID PRN (Reason: Muscle Spasm) RF: 0 gabapentin 300 mg Capsule 900 mg PO TID Qty: 30 RF: 0 levothyroxine 25 mcg tablet 25 mcg PO QAM RF: 0 ondansetron HCl 4 mg tablet 4 mg PO DAILY PRN (Reason: Nausea And Vomiting) RF: 0 lubiprostone [Amitiza] 24 mcg capsule 24 mcg PO BID RF: 0 alprazolam 1 mg tablet 1 mg PO TID PRN (Reason: Anxiety) RF: 0 fluoxetine 20 mg capsule 40 mg PO DAILY RF: 0 clonidine HCl 0.1 mg tablet 0.1 mg PO DAILY PRN (Reason: High Systolic Blood Pressure. ) RF: 0 metoprolol tartrate [Lopressor] 50 mg tablet 50 mg PO DAILY RF: 0 furosemide [Lasix] 20 mg tablet 20 mg PO DAILY RF: 0 Emgality Pen 120 mg/mL pen injector 120 mg SUBCUT MO RF: 0 Discharge Orders: Discharge Order (Routine); Ordered 07/14/21 Ordered By: Matt Starr/Other Patient Handouts: Chronic Pain Therapies Mind Body Admission Data Admit Date/Time: 07/12/21 20:20 Attending Provider: Oswaldo Waters Admit Provider: Renny Kidd Primary Care Provider: Matt Adame Other Providers: Renny Kidd Other Interventions: Discharge Summary Assessment (RN) Last Done: 07/14/21 12:41 Supervising Physician Co-Signing Physician Notes Patient was seen and examined at bedside with Dr. Adame. Agree with above discharge note. Vitals as noted. Patient has been coming back to the hospital with encephalopathy. Differential diagnosis is broad, includes HTN encephaloapthy, complex migraine, polypharmacy, psychosomatic disorder, malingering. Though patient complains of migraine headaches about 15x a month, she did not report any headaches prior nor during this episode. She reports she does not recall most moments once she became confused, however she recalls vividly the moments prior to her confusion like pouring water nina the garbage instead of the sink and calling a friend for help. Main complaint is her chest pain which appears controlled with opitates. Plan is to improve pain controll with hopes of decreasing her episodes of confusion: with tramadol around the clock and oxycodone for breakthrough pain. Patient will need to followup with pain management and PCP. In regards to her BP, will recommend restarting amlodipine HS and perhaps changing her ARB to HS. Resident Activity Tracking Resident Involvement: Resident Care Provided Care Provided: Adult Hospital Medicine
--- NOTE | 2021-07-14 20:41 | Billing Data ---
Date of Service July 14, 2021 Coding Level of Care Code D/C DAY MANAGEMENT >30 MINS Time Spent (min) 55
[2021-07-15 01:11] LABS: 7-Aminoclonaz, Confirm NEGATIVE ng/mL (<25); Hydro-Alp Ur, GC/MS 124 ng/mL (<25); Hydroxyethylflurazepam, Conf NEGATIVE ng/mL (<50); Hydroxymidazolam Ur, GC/MS NEGATIVE ng/mL (<50); Hydroxytriazolam NEGATIVE ng/mL (<50); Lorazepam, Ur GC/MS NEGATIVE ng/mL (<50); Nordiazepam, Confirm NEGATIVE ng/mL (<50); Oxazepam Ur, GC/MS NEGATIVE ng/mL (<50); Temazepam, Confirm NEGATIVE ng/mL (<50)
== END 2021-07-14 15:35 | disposition home or self-care (01) | DRG 948 ==
LOC: ED 15:15 → 2W 20:20 → SUATTDRO 20:20 → 2W 22:36

== ENCOUNTER 2021-07-18 15:37 | Inpatient (IN) ==
[2021-07-18 16:56] LABS: Basophils # (auto) 0.01 K/uL (0-0.2); Basophils % (auto) 0.1 %; Eosinophils # (auto) 0.01 K/uL (0-0.5); Eosinophils % (auto) 0.1 %; Hematocrit (blood only) 32.9 % (37-47); Hemoglobin 11.1 g/dL (12.0-16.0); Immature Granulocytes # (auto) 0.04 K/uL (0.00-0.02); Immature Granulocytes % (auto) 0.4 %; Lymphocytes # (auto) 1.18 K/uL (1.2-3.4); Lymphocytes % (auto) 10.5 %; Mean Corpuscular Hemoglobin 30.8 pg (25-34); Mean Corpuscular Hgb Conc 33.7 g/dL (32-36); Mean Corpuscular Volume 91.4 fL (80-100); Mean Platelet Volume 9.9 fL (7.4-10.4); Monocytes # (auto) 0.75 K/uL (0.11-0.59); Monocytes % (auto) 6.7 %; Neutrophils # (auto) 9.22 K/uL (1.4-6.5); Neutrophils % (auto) 82.2 %; Platelet Count 314 K/uL (130-400); RDW Standard Deviation 43.2 fL (36.4-46.3); White Blood Count 11.21 K/uL (4.8-10.8)
[2021-07-18 17:13] LABS: Albumin Level 2.9 gm/dl (3.4-5.0); BUN Creatinine Ratio 10.6 (10-20); Calcium 9.2 mg/dl (8.5-10.1); Creatinine Clr Calc Pharmacy 122.7 ml/min; Est GFR (African American) 110.2 ml/min; Est GFR (Non-African American) 95.1 ml/min; Magnesium 2.3 mg/dl (1.8-2.4); Potassium 4.1 mmol/L (3.5-5.1)
[2021-07-18 17:16] LABS: Albumin Globulin Ratio 0.6 (0.9-2); Bilirubin,Total 0.3 mg/dl (0.2-1); Globulin 4.8 gm/dl (2.5-4.0); Total Protein 7.7 gm/dl (6.4-8.2)
[2021-07-18 17:20] LABS: Appearance Urine Clear (Clear); Bacteria Urine Automated 1+ (Negative); Bilirubin Urine Negative (Negative); Blood Urine 2+ (Negative); Color Urine Yellow; Epithelial Cell Urine Auto >30 /lpf (0-5); Glucose Urine UA Negative (Negative); Ketones Urine Negative (Negative); Leukocyte Esterase Urine Negative (Negative); Nitrite Urine Negative (Negative); Protein Urine Negative (Negative); Specific Gravity Urine 1.013 (1.000-1.030); Urobilinogen Urine Negative (Negative); pH Urine 5.5 (4.5-7.5)
[2021-07-18 17:24] LABS: INR 1.1 (0.9-1.1); Partial Thromboplastin Ratio 2.8; Prothrombin Time 10.9 Seconds (9.0-12.0)
[2021-07-18] MEDS ORDERED: PIPERACILLIN/TAZOBACTAM 4.5 GM/120 ML BAG IV ONE (17:43)
[2021-07-18] MEDS ORDERED: PIPERACILL/TAZOBAC CONSULT ACTIVE PRN (17:43)
[2021-07-18] MEDS ORDERED: VANCOMYCIN HCL 2,750 MG in SODIUM CHLORIDE 0.9% 500 ML IV ONE (17:43)
[2021-07-18] MEDS ORDERED: VANCOMYCIN CONSULT ACTIVE PRN ×2 (17:43→23:31)
[2021-07-18] MEDS ORDERED: LORazepam 1 MG TAB SL STA (18:28)
[2021-07-18] MEDS ORDERED: SODIUM CHLORIDE 0.9% 1000ML 1,000 ML IV SCH (18:30)
--- NOTE | 2021-07-18 19:38 | Emergency Department Note ---
Impression & Plan Bacteremia, Pneumonia, Leukocytosis ED Provider Note NAME: JOSUE BENJAMIN AGE: 40 SEX: F ARRIVES VIA: Walk-In INFORMANT: Patient ED PROVIDER(S): Brandon Ortega MD CHIEF COMPLAINT: Blood infection PLAN: Disposition: Admit MEDICAL DECISION MAKING: The patient is a pleasant 40-year-old woman with a past medical history of lupus, fibromyalgia, gastroparesis, hypothyroidism, hypertension, chronic pain syndrome, history of PE on full dose aspirin, PUD who presents to the emergency department for evaluation and admission after being called back to emergency department following blood cultures that are positive and were drawn yesterday evening in the emergency department after presenting with right back pain and shortness of breath. The patient presented yesterday for this pain which she reports occurred shortly after being discharged from an admission to [facility] on 07/14. The patient did have a positive blood culture from her port from that h ospitalization that was growing 3 different organisms and ostensibly was considered to be contamination and antibiotics were deferred following initial empiric treatment with penicillin. She was seen in the emergency department yesterday and had a normal white blood cell count and no fever however blood cultures were repeated. She was noted to have a dense consolidation of the right lower lobe on chest x-ray and CTA of the chest (negative for PE). She was treated with initial treatment with IV ceftriaxone as well as oral azithromycin and discharged on cefdinir and azithromycin. She was treated with Solu-Medrol for her pleurisy yesterday. Since yesterday the patient denies any fevers or chills but reports worsening pain in her right chest. She reports that she feels she is getting delirious from her pain which has happened in the past per her report and usually improved with IV morphine Toradol and Ativan. On arrival patient is fatigued appearing but no acute distress, afebrile with blood pressure 180s/90s and vital signs otherwise stable. Her O2 saturation is 97% on room air. Lungs with scant rhonchi of right lower lung duarte and otherwise clear. Her left upper chest port site is clean dry intact without erythema, warmth, induration, or tenderness. EKG without overt acute ischemia. Chest x-ray with persistence of right lower lobe consolidation without significant change from yesterday per my preliminary review. WBC 11.2K, nonspecific and in setting of receiving Solu-Medrol yesterday. H/H 11.1/32.9 similar to prior values. Platelets within normal limits. Chemistry without metabolic acidosis. Lactic acid 1.5, within normal limits. AST 46 similar to yesterday and nonspecific. UA with epithelial cells and patient denies urinary symptoms. The patient was ordered for broad-spectrum antibiotics with Zosyn and vancomycin given her prior cultures and concern for bacteremia. Unfortunately, the patient presents emergency department during a time of high volume and acuity with prolonged ED weights. Her evaluation was initiated from the waiting room as there are no beds available. Patient agrees with plan for admission. Case was discussed with EDWARDO Wesley hospitalist, who will evaluate the patient for admission. Triage Nursing notes reviewed and agree them. prior medical records reviewed Vital Signs: reviewed and remarkable for no significant abnormalities Differential diagnosis: Sepsis, UTI, pneumonia, metabolic, electrolyte abnormalities, cardiac sources, intracerebral event, toxicologic, neurologic, as well as other pathologies. ER treatment provided: See below. Diagnostics interpreted by me: ECG: Normal sinus rhythm, 79 bpm, no ectopy, no overt ST elevation or depression, QTC 486, QRS 86. Cardiac Monitoring: An order for continuous cardiac monitoring was placed and demonstrated normal sinus rhythm, 79 bpm, no ectopy. Laboratory studies: see below Imaging studies: See below Consultation(s): Case was discussed with EDWARDO Wesley hospitalist, who will evaluate the patient for admission. HPI: The patient is a pleasant 40-year-old woman with a past medical history of lupus, fibromyalgia, gastroparesis, hypothyroidism, hypertension, chronic pain syndrome, history of PE on full dose aspirin, PUD who presents to the emergency department for evaluation and admission after being called back to emergency department following blood cultures that are positive and were drawn yesterday evening in the emergency department after presenting with right back pain and shortness of breath. The patient presented yesterday for this pain which she reports occurred shortly after being discharged from an admission to [facility] on 07/14. The patient did have a positive blood culture from her port from that hospitalization that was growing 3 different organisms and ostensibly was considered to be contamination and antibiotics were deferred following initial empiric treatment with penicillin. She was seen in the emergency department yesterday and had a normal white blood cell count and no fever however blood cultures were repeated. She was noted to have a dense consolidation of the right lower lobe on chest x-ray and CTA of the chest (negative for PE). She was treated with initial treatment with IV ceftriaxone as well as oral azithromycin and discharged on cefdinir and azithromycin. She was treated with Solu-Medrol for her pleurisy yesterday. Since yesterday the patient denies any fevers or chills but reports worsening pain in her right chest. She reports that she feels she is getting delirious from her pain which has happened in the past per her report and usually improved with IV morphine Toradol and Ativan. getting delirious from her pain which has happened in the past per her report and usually improved with IV morphine Toradol and Ativan. ROS: See above HPI for pertinent positives & negatives. A total of 10 systems reviewed and were otherwise negative. PAST MEDICAL HISTORY: see Below PAST SURGICAL HISTORY: see Below FAMILY HISTORY:See Below SOCIAL HISTORY: see Below HOME MEDICATIONS: see Below ALLERGIES: see Below VITALS: see Below PHYSICAL EXAMINATION: GENERAL: Awake, alert, well-appearing, in no distress HENT: Normocephalic, atraumatic. Oropharynx unremarkable. EYES: Normal conjunctiva. Sclera non-icteric. NECK: Supple. No nuchal rigidity. FROM. No JVD. RESPIRATORY: Scant rhonchi of right lower lung duarte and otherwise clear. CARDIAC: Regular rate, normal rhythm. Extremities warm and well perfused. Pulses equal. ABDOMEN: Soft, non-distended. No tenderness to palpation. No rebound or guarding. No masses. RECTAL: Deferred. MUSCULOSKELETAL: Chest examination reveals no tenderness. The back is symmetrical on inspection without obvious abnormality. There is no CVA tenderness to palpation. No joint edema. LOWER EXTREMITIES: Calves are equal size bilaterally and non-tender. No edema. No discoloration. NEURO: Normal sensorium. No sensory or motor deficits noted. SKIN: No rash or jaundice noted. Left upper chest wall port site clean dry and intact without erythema, warmth, induration, or tenderness. ED COURSE: Critical Care: I have personally spent greater than 35 minutes of critical care time in the direct management of this patient. This includes bedside care, interpretation of diagnostic studies, and testing, discussion with consultants, patient, and family members, and other required patient management activities. This 35 minutes is in excess of all separately billable procedures. Brandon Ortega MD Past Med/Surg History Medical History Abdominal pain Acute confusion Anxiety Chest pain Chronic pain syndrome Confusion Dehydration Depression Fibromyalgia Gastritis Gastroparesis Headache History of kidney infection History of lupus anticoagulant disorder History of migraine History of multiple miscarriages History of ovarian cyst History of umbilical hernia Hypertension Hypertensive urgency Hypothyroidism Intractable epigastric abdominal pain Lupus nephritis Osteoarthritis Peptic ulcer disease Pleuritis (09/17/14) history of Poorly-controlled hypertension Post traumatic stress disorder Pulmonary embolism history of Urinary tract infection Surgical History H/O: hysterectomy History of tonsillectomy and adenoidectomy Hx of appendectomy Hx of cholecystectomy Port-A-Cath in place (08/29/20) Mediport Placement, Left Subclavian Vein Dr. Garcia 08/29/2020 Family History Sister SLE (systemic lupus erythematosus) Family/Other SLE (systemic lupus erythematosus) maternal side Social History Smoking Status: Never smoker Tobacco Type: Cigarettes Age Started Using Tobacco: 23; Age Quit Using Tobacco: 39; Second Hand Exposure: No; Hx Alcohol Use: No Hx Substance Use: No Preferred Language: Spanish Communication Ability: Effective Speech Language Pathology Assistant Required: No Beliefs That Will Affect Care: None marital status: fiance. 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 How many Children do You have: 2 Feels Safe at Home: Yes Allergies Allergies Allergy/AdvReac Type Severity Reaction Status Date / Time dexamethasone Allergy Intermediate HIVES Verified 07/18/21 20:03 latex Allergy Intermediate HIVES Verified 07/18/21 20:03 pregabalin Allergy Intermediate FACE AND Verified 07/18/21 20:03 LIPS SWELLED Sulfa (Sulfonamide Allergy Intermediate LUPUS Verified 07/18/21 20:03 Antibiotics) FLARE UP morphine Allergy Mild local Verified 07/18/21 20:03 reaction at site duloxetine AdvReac Intermediate SEROTONIN Verified 07/18/21 20:03 SYNDROME escitalopram AdvReac Intermediate WENT CRAZY Verified 07/18/21 20:03 sertraline [From Zoloft] AdvReac Intermediate WENT SUMEETZY Verified 07/18/21 20:03 Home Meds Home Medications Medication Instructions Recorded Confirmed levothyroxine 25 mcg tablet 25 mcg PO QAM 07/10/19 07/18/21 lubiprostone 24 mcg capsule 24 mcg PO BID 05/08/21 07/18/21 (Amitiza) alprazolam 1 mg tablet 1 mg PO TID PRN 06/13/21 07/18/21 baclofen 10 mg tablet 20 mg PO TID PRN tab 06/19/21 07/18/21 carvedilol 12.5 mg tablet 12.5 mg PO BID 06/19/21 07/18/21 chlorthalidone 25 mg tablet 25 mg PO QAM 06/19/21 07/18/21 famotidine 20 mg tablet 20 mg PO BID 06/19/21 07/18/21 linaclotide 290 mcg capsule 290 mcg PO QAM 06/19/21 07/18/21 (Linzess) losartan 100 mg tablet 50 mg PO QAM tab 06/19/21 07/18/21 clonidine HCl 0.1 mg tablet 0.1 mg PO DAILY PRN 07/12/21 07/18/21 fluoxetine 20 mg capsule 40 mg PO QAM 07/12/21 07/18/21 furosemide 20 mg tablet (Lasix) 20 mg PO QAM 07/12/21 07/18/21 galcanezumab-gnlm 120 mg/mL 120 mg SUBCUT MO 07/12/21 07/18/21 subcutaneous pen injector (Emgality Pen) metoprolol tartrate 50 mg tablet 50 mg PO QAM 07/12/21 07/18/21 (Lopressor) cholecalciferol (vitamin D3) 50 0 mcg PO QAM 07/17/21 07/18/21 mcg (2,000 unit) tablet (Vitamin D3) multivitamin 1 tab PO QAM 07/17/21 07/18/21 Previous Rx's Medication Instructions Recorded gabapentin 300 mg capsule 900 mg PO TID #30 cap 08/30/20 oxycodone 5 mg tablet 5 mg PO Q8H PRN #20 tab 07/14/21 tramadol 50 mg tablet 50 mg PO Q8H 14 Days #42 tab 07/14/21 Saccharomyces boulardii 250 mg 250 mg PO BID #20 cap 07/17/21 capsule (Florastor) azithromycin 250 mg tablet 250 mg PO DAILY 4 Days #4 tab 07/17/21 cefdinir 300 mg capsule 300 mg PO BID 10 Days #20 cap 07/17/21 ondansetron 4 mg disintegrating 4 mg PO Q6H PRN #14 tab 07/17/21 tablet prednisone 20 mg tablet 60 mg PO DAILY 4 Days #12 tab 07/17/21 Results & Data (ED) Vital Signs Vital Signs - 24 hr 07/18/21 15:54 07/18/21 16:27 07/18/21 22:00 Temperature 37.0 C Temperature Source Temporal Artery Scan Pulse Rate 75 66 Pulse Rate [Right Radial] 83 Pulse Rate from SpO2 Sensor 66 Pulse Rhythm [Right Radial] Regular Respiratory Rate 18 18 19 Respiratory Effort / Characteristics Non-Labored Respiratory Depth Normal Blood Pressure 161/95 H 127/76 Blood Pressure [Right Arm] 185/97 H Blood Pressure Mean 117 93 Blood Pressure Mean [Right Arm] 126 Blood Pressure Position Sitting Pulse Oximetry 97 97 96 Oxygen Delivery Method Room Air Room Air Room Air Sepsis Recent Fever Within 48 Hours No Sepsis New/Unexplained Change in Mental Status No Sepsis Action Taken by Nursing No Action Required Laboratory Data Attestation: I reviewed the patient's lab results. Result diagrams: 07/18/21 16:45 07/18/21 16:45 Lab Results 07/18/21 07/18/21 07/18/21 Range/Units 16:45 16:45 16:45 WBC 11.21 H (4.8-10.8) K/uL RBC 3.60 L (4.2-5.4) M/uL Hgb 11.1 L (12.0-16.0) g/dL Hct 32.9 L (37-47) % MCV 91.4 (80-100) fL MCH 30.8 (25-34) pg MCHC 33.7 (32-36) g/dL RDW Std Deviation 43.2 (36.4-46.3) fL RDW Coeff of Meg 13.0 (11.5-14.5) % Plt Count 314 (130-400) K/uL MPV 9.9 (7.4-10.4) fL Immature Gran % (Auto) 0.4 % Neut % (Auto) 82.2 % Lymph % (Auto) 10.5 % [place] % (Auto) 6.7 % Eos % (Auto) 0.1 % Baso % (Auto) 0.1 % Neut # (Auto) 9.22 H (1.4-6.5) K/uL Lymph # (Auto) 1.18 L (1.2-3.4) K/uL [place] # (Auto) 0.75 H (0.11-0.59) K/uL Eos # (Auto) 0.01 (0-0.5) K/uL Baso # (Auto) 0.01 (0-0.2) K/uL Immature Gran # (Auto) 0.04 H (0.00-0.02) K/uL PT 10.9 (9.0-12.0) Seconds INR 1.1 (0.9-1.1) APTT 73.2 H* (21.0-31.0) Seconds PTT Ratio 2.8 Sodium 139 (136-145) mmol/L Potassium 4.1 (3.5-5.1) mmol/L Chloride 107 (98-107) mmol/L Carbon Dioxide 24 (21-32) mmol/L Anion Gap 8.0 (3-11) BUN 8 (7-18) mg/dl Creatinine 0.78 (0.6-1.2) mg/dl Est Cr Clr Drug Dosing 122.7 ml/min Est GFR ( Amer) 110.2 ml/min Est GFR (Non-Af Amer) 95.1 ml/min BUN/Creatinine Ratio 10.6 (10-20) Glucose 88 (70-99) mg/dl Lactate (0.4-2.0) mmol/L Calcium 9.2 (8.5-10.1) mg/dl Magnesium 2.3 (1.8-2.4) mg/dl Total Bilirubin 0.3 (0.2-1) mg/dl AST 46 H (15-37) U/L ALT 75 (12-78) U/L Alkaline Phosphatase 336 H (45-117) U/L Troponin I (0-0.045) ng/ml Total Protein 7.7 (6.4-8.2) gm/dl Albumin 2.9 L (3.4-5.0) gm/dl Globulin 4.8 H (2.5-4.0) gm/dl Albumin/Globulin Ratio 0.6 L (0.9-2) Procalcitonin (0-0.5) ng/ml Urine Color Urine Appearance (Clear) Urine pH (4.5-7.5) Ur Specific [place] (1.000-1.030) Urine Protein (Negative) Urine Glucose (UA) (Negative) Urine Ketones (Negative) Urine Blood (Negative) Urine Nitrite (Negative) Urine Bilirubin (Negative) Urine Urobilinogen (Negative) Ur Leukocyte Esterase (Negative) Urine WBC (Auto) (0-5) /hpf Urine RBC (Auto) (0-4) /hpf U Hyaline Cast (Auto) (0-5) /lpf U Epithel Cells (Auto) (0-5) /lpf Urine Bacteria (Auto) (Negative) 07/18/21 07/18/21 07/18/21 Range/Units 16:45 16:45 16:50 WBC (4.8-10.8) K/uL RBC (4.2-5.4) M/uL Hgb (12.0-16.0) g/dL Hct (37-47) % MCV (80-100) fL MCH (25-34) pg MCHC (32-36) g/dL RDW Std Deviation (36.4-46.3) fL RDW Coeff of Meg (11.5-14.5) % Plt Count (130-400) K/uL MPV (7.4-10.4) fL Immature Gran % (Auto) % Neut % (Auto) % Lymph % (Auto) % [place] % (Auto) % Eos % (Auto) % Baso % (Auto) % Neut # (Auto) (1.4-6.5) K/uL Lymph # (Auto) (1.2-3.4) K/uL [place] # (Auto) (0.11-0.59) K/uL Eos # (Auto) (0-0.5) K/uL Baso # (Auto) (0-0.2) K/uL Immature Gran # (Auto) (0.00-0.02) K/uL PT (9.0-12.0) Seconds INR (0.9-1.1) APTT (21.0-31.0) Seconds PTT Ratio Sodium (136-145) mmol/L Potassium (3.5-5.1) mmol/L Chloride (98-107) mmol/L Carbon Dioxide (21-32) mmol/L Anion Gap (3-11) BUN (7-18) mg/dl Creatinine (0.6-1.2) mg/dl Est Cr Clr Drug Dosing ml/min Est GFR ( Amer) ml/min Est GFR (Non-Af Amer) ml/min BUN/Creatinine Ratio (10-20) Glucose (70-99) mg/dl Lactate 1.5 (0.4-2.0) mmol/L Calcium (8.5-10.1) mg/dl Magnesium (1.8-2.4) mg/dl Total Bilirubin (0.2-1) mg/dl AST (15-37) U/L ALT (12-78) U/L Alkaline Phosphatase (45-117) U/L Troponin I < 0.015 (0-0.045) ng/ml Total Protein (6.4-8.2) gm/dl Albumin (3.4-5.0) gm/dl Globulin (2.5-4.0) gm/dl Albumin/Globulin Ratio (0.9-2) Procalcitonin (0-0.5) ng/ml Urine Color Yellow Urine Appearance Clear (Clear) Urine pH 5.5 (4.5-7.5) Ur Specific [place] 1.013 (1.000-1.030) Urine Protein Negative (Negative) Urine Glucose (UA) Negative (Negative) Urine Ketones Negative (Negative) Urine Blood 2+ H (Negative) Urine Nitrite Negative (Negative) Urine Bilirubin Negative (Negative) Urine Urobilinogen Negative (Negative) Ur Leukocyte Esterase Negative (Negative) Urine WBC (Auto) 1-5 (0-5) /hpf Urine RBC (Auto) 10-30 H (0-4) /hpf U Hyaline Cast (Auto) 1-5 (0-5) /lpf U Epithel Cells (Auto) >30 H (0-5) /lpf Urine Bacteria (Auto) 1+ H (Negative) 07/18/21 Range/Units 21:45 WBC (4.8-10.8) K/uL RBC (4.2-5.4) M/uL Hgb (12.0-16.0) g/dL Hct (37-47) % MCV (80-100) fL MCH (25-34) pg MCHC (32-36) g/dL RDW Std Deviation (36.4-46.3) fL RDW Coeff of Meg (11.5-14.5) % Plt Count (130-400) K/uL MPV (7.4-10.4) fL Immature Gran % (Auto) % Neut % (Auto) % Lymph % (Auto) % [place] % (Auto) % Eos % (Auto) % Baso % (Auto) % Neut # (Auto) (1.4-6.5) K/uL Lymph # (Auto) (1.2-3.4) K/uL [place] # (Auto) (0.11-0.59) K/uL Eos # (Auto) (0-0.5) K/uL Baso # (Auto) (0-0.2) K/uL Immature Gran # (Auto) (0.00-0.02) K/uL PT (9.0-12.0) Seconds INR (0.9-1.1) APTT (21.0-31.0) Seconds PTT Ratio Sodium (136-145) mmol/L Potassium (3.5-5.1) mmol/L Chloride (98-107) mmol/L Carbon Dioxide (21-32) mmol/L Anion Gap (3-11) BUN (7-18) mg/dl Creatinine (0.6-1.2) mg/dl Est Cr Clr Drug Dosing ml/min Est GFR ( Amer) ml/min Est GFR (Non-Af Amer) ml/min BUN/Creatinine Ratio (10-20) Glucose (70-99) mg/dl Lactate (0.4-2.0) mmol/L Calcium (8.5-10.1) mg/dl Magnesium (1.8-2.4) mg/dl Total Bilirubin (0.2-1) mg/dl AST (15-37) U/L ALT (12-78) U/L Alkaline Phosphatase (45-117) U/L Troponin I (0-0.045) ng/ml Total Protein (6.4-8.2) gm/dl Albumin (3.4-5.0) gm/dl Globulin (2.5-4.0) gm/dl Albumin/Globulin Ratio (0.9-2) Procalcitonin 0.52 H (0-0.5) ng/ml Urine Color Urine Appearance (Clear) Urine pH (4.5-7.5) Ur Specific [place] (1.000-1.030) Urine Protein (Negative) Urine Glucose (UA) (Negative) Urine Ketones (Negative) Urine Blood (Negative) Urine Nitrite (Negative) Urine Bilirubin (Negative) Urine Urobilinogen (Negative) Ur Leukocyte Esterase (Negative) Urine WBC (Auto) (0-5) /hpf Urine RBC (Auto) (0-4) /hpf U Hyaline Cast (Auto) (0-5) /lpf U Epithel Cells (Auto) (0-5) /lpf Urine Bacteria (Auto) (Negative) Administered Medications Discontinued Medications Vancomycin HCl 2,750 mg/ (Sodium Chloride) 555 mls @ 200 mls/hr IV NOW ONE Stop: 07/18/21 20:29 Last Admin: 07/18/21 21:07 Dose: 200 mls/hr Documented by: [id number] Piperacillin Sod/Tazobactam Sod (Zosyn) 4.5 gm in 120 mls @ 240 mls/hr IV NOW ONE Stop: 07/18/21 18:12 Last Infusion: 07/18/21 23:16 Dose: 0 mls/hr Documented by: [id number] Admin: 07/18/21 22:43 Dose: 240 mls/hr Documented by: [id number] Sodium Chloride (Nss 1000ml) 1,000 mls @ 125 mls/hr IV .Q8H THAO Stop: 08/17/21 18:29 Last Infusion: 07/18/21 23:34 Dose: 0 mls/hr Documented by: [id number] Admin: 07/18/21 22:44 Dose: 125 mls/hr Documented by: [id number] Ketorolac Tromethamine (Ketorolac Tromethamine 15 Mg/Ml Vial) 15 mg IV NOW ONE Stop: 07/18/21 21:58 Last Admin: 07/18/21 22:12 Dose: 15 mg Documented by: [id number] Lorazepam (Lorazepam 1 Mg Tab) 1 mg SL NOW STA Stop: 07/18/21 18:29 Last Admin: 07/18/21 21:11 Dose: 1 mg Documented by: [id number] Lorazepam (Lorazepam 1 Mg Tab) Confirm Administered Dose 1 mg .ROUTE .STK-MED ONE Stop: 07/18/21 21:11 Last Admin: 07/18/21 22:35 Dose: Not Given Documented by: [id number] Morphine Sulfate (Morphine Sulfate 2 Mg/Ml Carp) 2 mg IV NOW STA Stop: 07/18/21 21:58 Last Admin: 07/18/21 22:13 Dose: 2 mg Documented by: [id number] Piperacillin Sod/Tazobactam Sod (Piperacillin/Tazobactam 4.5 Gm/120ml D5w) Confirm Administered Dose 4.5 gm IV .STK-MED ONE Stop: 07/18/21 22:42 Last Admin: 07/18/21 22:45 Dose: Not Given Documented by: [id number] Discharge Plan Visit Data Chief Complaint: Infection Stated Complaint: PORT INFECTED, NURSE REFERR'D ED Provider: Brandon Ortega Discharge Problem: Bacteremia, Pneumonia, Leukocytosis Patient Disposition: Admitted As Inpatient Discharge Instructions Interventions: ED Discharge Assessment Last Done: 07/18/21 23:06 Discharge Problem: Pneumonia Qualifiers: Pneumonia type: due to unspecified organism Laterality: right Lung location: lower lobe of lung Qualified Code(s): J18.9 - Pneumonia, unspecified organism Leukocytosis Qualifiers: Leukocytosis type: unspecified Qualified Code(s): D72.829 - Elevated white blood cell count, unspecified
--- NOTE | 2021-07-18 20:05 | History & Physical Report ---
Date of Service July 18, 2021 Assessment & Plan (1) Bacteremia: Plan: 40-year-old female with a past medical history including hypertensive urgency/emergency, poorly controlled hypertension, peptic ulcer disease, systemic lupus, serositis, hypothyroidism, hematemesis, depression, lupus anticoagulant disorder, pulmonary embolism, and fibromyalgia presented to the ED for confirmed bacteremia. 1) Bacteremia -cultures drawn (07/17) grew gram positive cocci in chains, pt called back into ER for tx -possible source from port or ongoing pneumonia; UA neg -WBC 11.2, lactate WNL -IVF in ED, discontinued -zosyn and vanc x1 given in ED -cont. vanc., adjust coverage if VRE -repeat cultures pending -gen surg consulted for removal of port due to possible source -trend CBC 2) Pneumonia -Discharged home (07/17) for outpatient management with cefdinir and azithromycin -CT chest (07/17): focal consolidation right lower lung, few additional scattered nodular densities within the right lower lobe and left lung, trace bilateral effusions -WBC 11.2, lactate WNL -zosyn and vanc x1 given in ED -discontinue cefdinir and azithromycin; start ceftriaxone, azithromycin -discontinue lasix -trend CBC, procal pending -incentive spirometer q1h 3) Chest pain - presenting with chronic, expanding chest pain - Takotsubo cardiomyopathy at 04/2021 admission, repeat echo during 05/2021 admission showed return of normal EF - 05/09/21 cardiac cath did not show any evidence of CAD - ddx visceral hypersensitivity contributes to her abdominal pain, trigger points, costochondritis - Mg 2.3, K 4.1 - EKG: NSR, no ST segment changes, prolonged QT - trops neg 4) Systemic lupus -multisystem hx including recurrent miscarriages, HTN, perhaps related to SLE. -outpt f/u; has apt 09/2021 5) Poorly-controlled hypertension -Cont. home chlorthalidone, losartan, carvedilol, and lopressor -cont. home clonidine PRN 6) Gastroparesis -cont. home famotidine, Amitiza, and linzess 7) Hypothyroid: -cont. home levothyroxine (8) Depression and anxiety -Cont. home fluoxetine and Xanax 9) Fibromyalgia: -cont. home Gabapentin, baclofen 10) Chronic pain -Sent home with 2 weeks worth of scheduled tramadol and as needed oxycodone for breakthrough pain on 07/14 -chronic pain due to rheumatologic disease, fibromyalgia, and anxiety; concern for growing opioid dependence and tolerance -tramadol and oxy taken earlier today per patient, provided no relief -cont. home tramadol and oxy -start Toradol 15mg IV q6h PRN DVT ppx: Lovenox FEN/GI: Regular Code Status: Full Dispo: med/surg History of Present Illness Chief Complaint: Bacteremia Primary Care Provider: Matt Adame DO 40-year-old female with a past medical history including hypertensive urgency/emergency, poorly controlled hypertension, peptic ulcer disease, systemic lupus, serositis, hypothyroidism, hematemesis, depression, lupus anticoagulant disorder, pulmonary embolism, and fibromyalgia presented to the ED for confirmed bacteremia. Patient was discharged yesterday from [facility] with pneumonia to be treated outpatient with cefdinir and azithromycin. Blood cultures were pending on discharge and subsequently grew gram positive cocci in chains so patient was told to return to [facility] for further evaluation and treatment. She still has this right sided rib pain near the site of her p neumonia which has not gone away even with use of oxycodone 5mg and tramadol 50mg. She still also complains of chest pain which has been extensively worked up in the past. Describes pain as sharp and constant, she thinks pain is spreading across left side of chest. However, also states she is in generalized pain and fatigue likely due ot chronic conditions. Allergies Allergy/AdvReac Type Severity Reaction Status Date / Time dexamethasone Allergy Intermediate HIVES Verified 07/18/21 20:03 latex Allergy Intermediate HIVES Verified 07/18/21 20:03 pregabalin Allergy Intermediate FACE AND Verified 07/18/21 20:03 LIPS SWELLED Sulfa (Sulfonamide Allergy Intermediate LUPUS Verified 07/18/21 20:03 Antibiotics) FLARE UP morphine Allergy Mild local Verified 07/18/21 20:03 reaction at site duloxetine AdvReac Intermediate SEROTONIN Verified 07/18/21 20:03 SYNDROME escitalopram AdvReac Intermediate WENT CRAZY Verified 07/18/21 20:03 sertraline [From Zoloft] AdvReac Intermediate WENT CRAZY Verified 07/18/21 20:03 Home Medications Medication Instructions Recorded Confirmed Type levothyroxine 25 mcg tablet 25 mcg PO QAM 07/10/19 07/18/21 History gabapentin 300 mg capsule 900 mg PO TID #30 cap 08/30/20 07/18/21 Rx lubiprostone 24 mcg capsule 24 mcg PO BID 05/08/21 07/18/21 History (Amitiza) alprazolam 1 mg tablet 1 mg PO TID PRN 06/13/21 07/18/21 History baclofen 10 mg tablet 20 mg PO TID PRN tab 06/19/21 07/18/21 History carvedilol 12.5 mg tablet 12.5 mg PO BID 06/19/21 07/18/21 History chlorthalidone 25 mg tablet 25 mg PO QAM 06/19/21 07/18/21 History famotidine 20 mg tablet 20 mg PO BID 06/19/21 07/18/21 History linaclotide 290 mcg capsule 290 mcg PO QAM 06/19/21 07/18/21 History (Linzess) losartan 100 mg tablet 50 mg PO QAM tab 06/19/21 07/18/21 History clonidine HCl 0.1 mg tablet 0.1 mg PO DAILY PRN 07/12/21 07/18/21 History fluoxetine 20 mg capsule 40 mg PO QAM 07/12/21 07/18/21 History furosemide 20 mg tablet (Lasix) 20 mg PO QAM 07/12/21 07/18/21 History galcanezumab-gnlm 120 mg/mL 120 mg SUBCUT MO 07/12/21 07/18/21 History subcutaneous pen injector (Emgality Pen) metoprolol tartrate 50 mg tablet 50 mg PO QAM 07/12/21 07/18/21 History (Lopressor) oxycodone 5 mg tablet 5 mg PO Q8H PRN #20 tab 07/14/21 07/18/21 Rx tramadol 50 mg tablet 50 mg PO Q8H 14 Days #42 tab 07/14/21 07/18/21 Rx Saccharomyces boulardii 250 mg 250 mg PO BID #20 cap 07/17/21 07/18/21 Rx capsule (Florastor) azithromycin 250 mg tablet 250 mg PO DAILY 4 Days #4 tab 07/17/21 07/18/21 Rx cefdinir 300 mg capsule 300 mg PO BID 10 Days #20 cap 07/17/21 07/18/21 Rx cholecalciferol (vitamin D3) 50 0 mcg PO QAM 07/17/21 07/18/21 History mcg (2,000 unit) tablet (Vitamin D3) multivitamin 1 tab PO QAM 07/17/21 07/18/21 History ondansetron 4 mg disintegrating 4 mg PO Q6H PRN #14 tab 07/17/21 07/18/21 Rx tablet prednisone 20 mg tablet 60 mg PO DAILY 4 Days #12 tab 07/17/21 07/18/21 Rx Past Med/Surg History Medical History Abdominal pain Acute confusion Anxiety Chest pain Chronic pain syndrome Confusion Dehydration Depression Fibromyalgia Gastritis Gastroparesis Headache History of kidney infection History of lupus anticoagulant disorder History of migraine History of multiple miscarriages History of ovarian cyst History of umbilical hernia Hypertension Hypertensive urgency Hypothyroidism Intractable epigastric abdominal pain Lupus nephritis Osteoarthritis Peptic ulcer disease Pleuritis (09/17/14) history of Poorly-controlled hypertension Post traumatic stress disorder Pulmonary embolism history of Urinary tract infection Surgical History H/O: hysterectomy History of tonsillectomy and adenoidectomy Hx of appendectomy Hx of cholecystectomy Port-A-Cath in place (08/29/20) Mediport Placement, Left Subclavian Vein Dr. Garcia 08/29/2020 Family History Sister SLE (systemic lupus erythematosus) Family/Other SLE (systemic lupus erythematosus) maternal side Social History Smoking Status: Former smoker Tobacco Type: Cigarettes Age Started Using Tobacco: 23; Age Quit Using Tobacco: 39; Second Hand Exposure: No; Hx Alcohol Use: No Hx Substance Use: No Preferred Language: Bulgarian Communication Ability: Effective Manager Export Required: No Beliefs That Will Affect Care: None marital status: fiance. 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 CV: +chest pain, +heart beating fast. Denies palpiations. Resp: denies cough. +SOB on inspiration with pain GI: +abdominal pain, +nausea, +vomiting, +constipation. Denies diarrhea. : denies pain with urination, change in urinary frequency Musculoskeletal: denies recent injury Skin: denies new rash Neuro: denies new numbness, tingling. Physical Exam Physical Exam: Constitutional: Well-developed, in moderately acute distress, pleasant and normal affect, intact memory. Vitals as above. HEENT: No scleral injection or discharge. Moist mucous membranes. Clear oropharynx. No exudate. No lesions. Tympanic membranes are clear bilaterally. Neck: Supple without lymphadenopathy or thyromegaly. Trachea midline. Lungs: Clear to auscultation bilaterally, right rib pain on inspiration Cardiac: Regular rate and rhythm. No murmurs. No extremity edema. Abdomen: Soft, nontender, and nondistended.No guarding. No masses. No hepatosplenomegaly. MSK: No cyanosis or clubbing. Extremities motor strength 5/5. TTP right mid sternum. Skin: No rashes, warm, dry. Neurologic: normal sensorium. no sensory or motor deficits noted. PERRL. Results & Data Results & Data ([facility]) Vital Signs (Past 12 Hours) Vital Signs Temp Pulse Pulse Resp BP BP Pulse Ox 07/18/21 16:27 83 18 185/97 H 97 07/18/21 15:54 37.0 C 75 18 161/95 H 97 Laboratory Results Laboratory Results WBC 11.21 K/uL (4.8-10.8) H 07/18/21 16:45 RBC 3.60 M/uL (4.2-5.4) L 07/18/21 16:45 Hgb 11.1 g/dL (12.0-16.0) L 07/18/21 16:45 Hct 32.9 % (37-47) L 07/18/21 16:45 MCV 91.4 fL (80-100) 07/18/21 16:45 MCH 30.8 pg (25-34) 07/18/21 16:45 MCHC 33.7 g/dL (32-36) 07/18/21 16:45 RDW Std Deviation 43.2 fL (36.4-46.3) 07/18/21 16:45 RDW Coeff of Meg 13.0 % (11.5-14.5) 07/18/21 16:45 Plt Count 314 K/uL (130-400) 07/18/21 16:45 MPV 9.9 fL (7.4-10.4) 07/18/21 16:45 Immature Gran % (Auto) 0.4 % 07/18/21 16:45 Neut % (Auto) 82.2 % 07/18/21 16:45 Lymph % (Auto) 10.5 % 07/18/21 16:45 Graham % (Auto) 6.7 % 07/18/21 16:45 Eos % (Auto) 0.1 % 07/18/21 16:45 Baso % (Auto) 0.1 % 07/18/21 16:45 Neut # (Auto) 9.22 K/uL (1.4-6.5) H 07/18/21 16:45 Lymph # (Auto) 1.18 K/uL (1.2-3.4) L 07/18/21 16:45 Graham # (Auto) 0.75 K/uL (0.11-0.59) H 07/18/21 16:45 Eos # (Auto) 0.01 K/uL (0-0.5) 07/18/21 16:45 Baso # (Auto) 0.01 K/uL (0-0.2) 07/18/21 16:45 Immature Gran # (Auto) 0.04 K/uL (0.00-0.02) H 07/18/21 16:45 Sodium 139 mmol/L (136-145) 07/18/21 16:45 Potassium 4.1 mmol/L (3.5-5.1) 07/18/21 16:45 Chloride 107 mmol/L (98-107) 07/18/21 16:45 Carbon Dioxide 24 mmol/L (21-32) 07/18/21 16:45 Anion Gap 8.0 (3-11) 07/18/21 16:45 BUN 8 mg/dl (7-18) 07/18/21 16:45 Creatinine 0.78 mg/dl (0.6-1.2) 07/18/21 16:45 Est Cr Clr Drug Dosing 122.7 ml/min 07/18/21 16:45 Est GFR ( Amer) 110.2 ml/min 07/18/21 16:45 Est GFR (Non-Af Amer) 95.1 ml/min 07/18/21 16:45 BUN/Creatinine Ratio 10.6 (10-20) 07/18/21 16:45 Glucose 88 mg/dl (70-99) 07/18/21 16:45 Lactate 1.5 mmol/L (0.4-2.0) 07/18/21 16:45 Calcium 9.2 mg/dl (8.5-10.1) 07/18/21 16:45 Magnesium 2.3 mg/dl (1.8-2.4) 07/18/21 16:45 Total Bilirubin 0.3 mg/dl (0.2-1) 07/18/21 16:45 AST 46 U/L (15-37) H 07/18/21 16:45 ALT 75 U/L (12-78) 07/18/21 16:45 Alkaline Phosphatase 336 U/L (45-117) H 07/18/21 16:45 Total Protein 7.7 gm/dl (6.4-8.2) 07/18/21 16:45 Albumin 2.9 gm/dl (3.4-5.0) L 07/18/21 16:45 Globulin 4.8 gm/dl (2.5-4.0) H 07/18/21 16:45 Albumin/Globulin Ratio 0.6 (0.9-2) L 07/18/21 16:45 Urine Color Yellow 07/18/21 16:50 Urine Appearance Clear (Clear) 07/18/21 16:50 Urine pH 5.5 (4.5-7.5) 07/18/21 16:50 Ur Specific [place] 1.013 (1.000-1.030) 07/18/21 16:50 Urine Protein Negative (Negative) 07/18/21 16:50 Urine Glucose (UA) Negative (Negative) 07/18/21 16:50 Urine Ketones Negative (Negative) 07/18/21 16:50 Urine Blood 2+ (Negative) H 07/18/21 16:50 Urine Nitrite Negative (Negative) 07/18/21 16:50 Urine Bilirubin Negative (Negative) 07/18/21 16:50 Urine Urobilinogen Negative (Negative) 07/18/21 16:50 Ur Leukocyte Esterase Negative (Negative) 07/18/21 16:50 Urine WBC (Auto) 1-5 /hpf (0-5) 07/18/21 16:50 Urine RBC (Auto) 10-30 /hpf (0-4) H 07/18/21 16:50 U Hyaline Cast (Auto) 1-5 /lpf (0-5) 07/18/21 16:50 U Epithel Cells (Auto) >30 /lpf (0-5) H 07/18/21 16:50 Urine Bacteria (Auto) 1+ (Negative) H 07/18/21 16:50 ECG Additional Comments: HR ~80, normal sinus, prolonged QT Supervising Physician Co-Signing Physician Notes Patient seen and examined, chart reviewed, case discussed with Dr. Mccarty and I agree with his documentation above. In brief, patient is a 40yo female with multiple medical problems to include HTN, SLE with lupus anticoagulant disorder, prior PEs, FM and chronic pain - patient was recently admitted to [facility] with PNA and discharged home on Cefdinir and Azithromycin. She was called back when blood cultures 2/2 grew gram positive cocci in chains. She is presently complaining of full body pain, generalized discomfort and is requesting pain medication Skin - intact, no rashes HEENT - NC/AT Cardiac - +S1/S2, regular Lungs - Pain in right lower lung with inspiration Abd - +BS, soft, NT/ND Ext - warm, well perfused Labs and images reviewed. Blood cultures from 07/12/21: 1/2 + enterococcus faecalis, Alpha strep, CoNS Blood cultures from 07/17/21: DRAWN FROM CVAD (right chest port) +Aerobic and Anaerobic +GPC chains Blood cultures from 07/17/21: DRAWN FROM RUE PERIPHERAL +Aerobic GPC chains Blood cultures from 07/18/21: Uncertain site - +BPC in chains in aerobic bottle Assessment/Plan -Concern for streptococcus vs enterococcus bacteremia. Patient with indwelling port - may be infected as well, source of infection - vs recently diagnosed PNA -Afebrile, HD stable, non-toxic in appearance -?need for port extraction - patient has port in place due to poor IV access -Tx with Vancomycin, General Surgery consultation appreciated -Awaiting final culture results -Ceftriaxone and Azithromycin to complete antibiotic course for PNA -Pain control - avoidance of IV opioids if possible -Remainder of plan as above Resident Activity Tracking Resident Involvement: Resident Care Provided Care Provided: Adult [facility] Medicine
--- NOTE | 2021-07-18 20:17 | Communication Note ---
Date of Service: July 18, 2021 Nothing by port (left shoulder) secondary due to possible source of gram positive bacteremia. Resident Activity Tracking Resident Involvement: Resident Care Provided Care Provided: Adult Hospital Medicine
[2021-07-18 20:43] LABS: Partial Thromboplastin Time 73.2 Seconds (21.0-31.0)
[2021-07-18] MEDS ORDERED: LORazepam 1 MG TAB ONE (21:10)
[2021-07-18] MEDS ORDERED: KETOROLAC TROMETHAMINE 15 MG/ML VIAL IV ONE (21:57)
[2021-07-18] MEDS ORDERED: MoRPHine SULFATE 2 MG/ML CARP IV STA (21:57)
[2021-07-18] MEDS ORDERED: PIPERACILLIN/TAZOBACTAM 4.5 GM/120ML D5W IV ONE (22:41)
[2021-07-18] MEDS ORDERED: cloNIDine HCL 0.1 MG TAB PO PRN (23:31)
[2021-07-18] MEDS ORDERED: VANCOMYCIN HCL 1,000 MG in SODIUM CHLORIDE 0.9% 250 ML IV SCH (23:31)
[2021-07-19] MEDS ORDERED: MoRPHine SULFATE 2 MG/ML CARP IV STA ×2 (00:10→04:43)
[2021-07-19] MEDS: ALPRAZolam 0.5 MG TABLET PO PRN ×2 (00:45→19:54)
[2021-07-19] MEDS: ONDANSETRON 4 MG OD TAB PO PRN (00:45)
[2021-07-19] MEDS: AZITHROMYCIN 500 MG in DEXTROSE 5% 250 ML IV SCH (00:55)
[2021-07-19] MEDS: oxyCODONE HCL IR 5 MG TAB (IMMEDIATE RELEASE) PO PRN ×2 (01:01→12:07)
[2021-07-19] MEDS: ENOXAPARIN INJ 40 MG/0.4 ML SYR SQ SCH ×3 (01:22→21:44)
--- NOTE | 2021-07-19 01:22 | Surgery Consultation ---
Date of Consultation July 19, 2021 Assessment & Plan (1) Bacteremia: Patient has been admitted by the hospitalist service proceeding as follows: There is concern that her underlying bacteremia may have resulted in underlying a port infection necessitating the removal of this port. Antibiotics have been initiated. The patient is receiving ceftriaxone, Zithromax, and vancomycin. Is recommended these antibiotics to be continued and can be tailored based on additional culture results as well as patient's clinical response. I have made the patient n.p.o. for the present time. I discussed the case with my attending surgeon to see if the port will be removed. If it is felt that a trial of antibiotics is reasonable we will advance the patient's diet. If it is felt that the port needs to be removed we will add her to the OR schedule to accomplish this. Additional recommendations will be forthcoming based on her clinical course as it unfolds. Supervising Physician Co-Signing Physician Notes We will proceed with removal left subclavian access port this morning The patient would like another one placed I told her it may make a few days before it saves to place another 1 since she had positive blood cultures All question answered Permit signed History of Present Illness Reason for Consultation: Positive blood cultures with concern for infected access port Attending Physician: Adelaide Perdue, History of Present Illness This is a 40-year-old female with a history of challenging and difficult intravenous access. Because of this Dr. Garcia placed a left subclavian a port in August 2020. Patient says that she utilizes this port only when she is hospitalized and says that she does not receive any medicines or accesses herself while she is at home. The patient says that her most recent hospital admission was in June of this year and review of records show that she was admitted from July 12 through July 14. Patient was admitted secondary to altered mental status which was felt to be due to somatic psychic reasons versus hypertensive encephalopathy. Is also no over the mention that the patient was recently seen in the emergency department at [facility] on 07/17/21. During this visit to the emergency department the patient had a chest x-ray showed patient had a opacity in the right midlung field. This prompted the patient to undergo a CT scan which was negative for pulmonary emboli the patient was noted to have a focal consolidation in the right lower lobe that was felt to represent a pneumonia. Patient did have blood cultures drawn which were pending at the time of her departure from the emergency department. Patient was discharged home with antibiotics in the form of cefdinir and Zithromax. Patient notes that she was doing reasonably well at home since her most recent emergency department visit. She does report some pleuritic chest pain but she has also been having fevers along with chills. She denies any shakes. She denies any abdominal pain or nausea or vomiting. She denies any pain at her left subclavian port site. Patient notes that she was called and told to report back to the emergency department because the previously drawn blood cultures were positive for gram-positive cocci. Patient's records were reviewed and blood cultures were drawn on 07/17/2021 that both grew gram-positive cocci. One of the scope cultures was drawn from her a port another was drawn from the peripheral site. It is also noteworthy mention that the patient did have positive blood cultures back in July 12, 2021 which were positive for Enterococcus faecalis as well as coagulase-negative staph and alpha strep. The patient has had labs drawn which include a CBC where her white blood cell count is 11.2. Her hemoglobin and hematocrit are 11.1 and 32.9 respectively. Platelet count is noted to be within normal range. Chemistry profile showed sodium, potassium, BUN, and creatinine were all within normal range. Urinalysis was performed and was not indicative of infection. Patient has had a Covid test performed on 07/17/2021 which was noted to be negative. At the time of my interview the patient is resting comfortably in bed and she was in no distress. Allergies Allergy/AdvReac Type Severity Reaction Status Date / Time dexamethasone Allergy Intermediate HIVES Verified 07/18/21 20:03 latex Allergy Intermediate HIVES Verified 07/18/21 20:03 pregabalin Allergy Intermediate FACE AND Verified 07/18/21 20:03 LIPS SWELLED Sulfa (Sulfonamide Allergy Intermediate LUPUS Verified 07/18/21 20:03 Antibiotics) FLARE UP morphine Allergy Mild local Verified 07/18/21 20:03 reaction at site duloxetine AdvReac Intermediate SEROTONIN Verified 07/18/21 20:03 SYNDROME escitalopram AdvReac Intermediate WENT CRAZY Verified 07/18/21 20:03 sertraline [From Zoloft] AdvReac Intermediate WENT CRAZY Verified 07/18/21 20:03 Home Medications Medication Instructions Recorded Confirmed Type levothyroxine 25 mcg tablet 25 mcg PO QAM 07/10/19 07/18/21 History gabapentin 300 mg capsule 900 mg PO TID #30 cap 08/30/20 07/18/21 Rx lubiprostone 24 mcg capsule 24 mcg PO BID 05/08/21 07/18/21 History (Amitiza) alprazolam 1 mg tablet 1 mg PO TID PRN 06/13/21 07/18/21 History baclofen 10 mg tablet 20 mg PO TID PRN tab 06/19/21 07/18/21 History carvedilol 12.5 mg tablet 12.5 mg PO BID 06/19/21 07/18/21 History chlorthalidone 25 mg tablet 25 mg PO QAM 06/19/21 07/18/21 History famotidine 20 mg tablet 20 mg PO BID 06/19/21 07/18/21 History linaclotide 290 mcg capsule 290 mcg PO QAM 06/19/21 07/18/21 History (Linzess) losartan 100 mg tablet 50 mg PO QAM tab 06/19/21 07/18/21 History clonidine HCl 0.1 mg tablet 0.1 mg PO DAILY PRN 07/12/21 07/18/21 History fluoxetine 20 mg capsule 40 mg PO QAM 07/12/21 07/18/21 History furosemide 20 mg tablet (Lasix) 20 mg PO QAM 07/12/21 07/18/21 History galcanezumab-gnlm 120 mg/mL 120 mg SUBCUT MO 07/12/21 07/18/21 History subcutaneous pen injector (Emgality Pen) metoprolol tartrate 50 mg tablet 50 mg PO QAM 07/12/21 07/18/21 History (Lopressor) oxycodone 5 mg tablet 5 mg PO Q8H PRN #20 tab 07/14/21 07/18/21 Rx tramadol 50 mg tablet 50 mg PO Q8H 14 Days #42 tab 07/14/21 07/18/21 Rx Saccharomyces boulardii 250 mg 250 mg PO BID #20 cap 07/17/21 07/18/21 Rx capsule (Florastor) azithromycin 250 mg tablet 250 mg PO DAILY 4 Days #4 tab 07/17/21 07/18/21 Rx cefdinir 300 mg capsule 300 mg PO BID 10 Days #20 cap 07/17/21 07/18/21 Rx cholecalciferol (vitamin D3) 50 0 mcg PO QAM 07/17/21 07/18/21 History mcg (2,000 unit) tablet (Vitamin D3) multivitamin 1 tab PO QAM 07/17/21 07/18/21 History ondansetron 4 mg disintegrating 4 mg PO Q6H PRN #14 tab 07/17/21 07/18/21 Rx tablet prednisone 20 mg tablet 60 mg PO DAILY 4 Days #12 tab 07/17/21 07/18/21 Rx Patient History Medical History Abdominal pain Acute confusion Anxiety Chest pain Chronic pain syndrome Confusion Dehydration Depression Fibromyalgia Gastritis Gastroparesis Headache History of kidney infection History of lupus anticoagulant disorder History of migraine History of multiple miscarriages History of ovarian cyst History of umbilical hernia Hypertension Hypertensive urgency Hypothyroidism Intractable epigastric abdominal pain Lupus nephritis Osteoarthritis Peptic ulcer disease Pleuritis (09/17/14) history of Poorly-controlled hypertension Post traumatic stress disorder Pulmonary embolism history of Urinary tract infection Surgical History H/O: hysterectomy History of tonsillectomy and adenoidectomy Hx of appendectomy Hx of cholecystectomy Port-A-Cath in place (08/29/20) Mediport Placement, Left Subclavian Vein Dr. Garcia 08/29/2020 Family History Sister SLE (systemic lupus erythematosus) Family/Other SLE (systemic lupus erythematosus) maternal side Social History Smoking Status: Former smoker Tobacco Type: Cigarettes Age Started Using Tobacco: 23; Age Quit Using Tobacco: 39; Second Hand Exposure: No; Hx Alcohol Use: No Hx Substance Use: No Preferred Language: Gibraltarian Communication Ability: Effective Geriatric Physician Required: No Beliefs That Will Affect Care: None marital status: fiance. Current Living Situation: Significant Other Current Living Situation Comment: Mickey current occupational status: employed current occupation: works at a [employer] for ex-[employer] How many Children do You have: 2 Other Information That Helps Us Care for You: No Feels Safe at Home: Yes Safety Concerns: Feels Safe At This Time Assistive Devices: Glasses Review of Systems Constitutional: + fever and + chills Eyes: no diplopia Ear, Nose, Mouth, Throat: no ear pain and no dry mouth Respiratory: + cough and + pain with cough; no dyspnea Cardiovascular: + chest pain (Pleuritic) Gastrointestinal: no abdominal pain, no nausea and no vomiting Genitourinary: no dysuria Musculoskeletal: no back pain Integumentary: no rash Neurologic: no localized weakness Physical Exam Physical Exam: A port is noted in the left subclavian position. The a port site looks clean without erythema, warmth, or pain with palpation. There is no crepitus in the soft tissue. There are no signs of infection. Constitutional: well developed and well nourished; no acute distress Eyes: Wears glasses ENMT: Ears: no hearing impairment Mouth: no oropharynx abnormality Neck: trachea midline Respiratory: normal respiratory effort; no respiratory distress and no labored breathing Cardiovascular: Rate/Rhythm: regular rate and regular rhythm Gastrointestinal (Abdomen): Soft, nontender, nondistended Musculoskeletal: No calf tenderness Skin: no rashes Neurologic: moves all extremities Psychiatric: A+Ox3, euthymic affect Results & Data ([facility]) Vital Signs (Past 12 Hours) Vital Signs Temp Pulse Pulse Pulse Resp BP BP 07/18/21 23:55 36.5 C 61 16 137/82 07/18/21 22:00 66 19 127/76 07/18/21 16:27 83 18 185/97 H 07/18/21 15:54 37.0 C 75 18 161/95 H Pulse Ox 07/18/21 23:55 98 07/18/21 22:00 96 07/18/21 16:27 97 07/18/21 15:54 97 PG Care Time/CCT Total # of Minutes Spent Total Time Spent with Patient: Total time spent is greater than 50% in coordination of care (as documented) at patient's floor/unit and/or counseling patient: Coding Level of Care Code 40379 Inpt Consult Level 5 Diagnoses Bacteremia R78.81
[2021-07-19] MEDS: traMADol HCL 50 MG TABLET PO SCH ×4 (01:23→22:37)
[2021-07-19] MEDS: cefTRIAXone SODIUM 2,000 MG in DEXTROSE 5% 50 ML IV SCH (03:25)
--- NOTE | 2021-07-19 03:54 | Billing Data ---
Date of Service July 18, 2021 Coding Level of Care Code 85814 Initial Inpt Care Lvl 3
[2021-07-19] MEDS: KETOROLAC TROMETHAMINE 15 MG/ML VIAL IV PRN (04:26)
[2021-07-19] MEDS: LEVOTHYROXINE SODIUM 25 MCG TABLET PO SCH (06:16)
[2021-07-19] MEDS: VANCOMYCIN HCL 1,500 MG in SODIUM CHLORIDE 0.9% 500 ML IV SCH ×2 (06:17→17:16)
[2021-07-19] MEDS ORDERED: PROPOFOL IV EMULSION 10 MG/ML 20 ML VIAL IV ONE (07:37)
[2021-07-19] MEDS ORDERED: LIDOCAINE 2% 2 ML VIAL/AMP(20MG/ML) INFIL ONE (07:37)
[2021-07-19] MEDS ORDERED: fentaNYL citrate 100 MCG/2 ML VIAL ONE (07:37)
[2021-07-19] MEDS ORDERED: MIDAZOLAM HCL 1 MG/ML 2ML VIAL ONE (07:37)
[2021-07-19] MEDS ORDERED: ONDANSETRON INJ 2 MG/ML 2 ML VIAL ONE (07:37)
--- NOTE | 2021-07-19 07:44 | XRay Report ---
XR chest 1V portable CLINICAL HISTORY: SEPSIS. Follow-up right lung pneumonia COMPARISON STUDY: Portable chest from 07/17/[address] chest from 07/17/2021 TECHNIQUE: 1 view of the chest FINDINGS: Single frontal view of the chest demonstrates the cardiomediastinal silhouette to be within normal li mits. Compared to previous examination, the alveolar opacity within the right lower lobe represents t he presence of pneumonia as seen on interval CT. No other definite confluent alveolar opacities are s een radiographically. There is no evidence for pleural effusion. There is no evidence for vascular co ngestion. There is no acute osseous pathology. IMPRESSION: Persistent alveolar opacity within the right lower lobe representing the presence of pneu monia as identified on interval CTA chest. ACT 112: Negative or not required by law. Electronically signed by: Loki Harrell M.D. 07/19/2021 7:42 AM
--- NOTE | 2021-07-19 08:44 | Anesthesiology Consultation ---
Date of Service July 19, 2021 Assessment & Plan (1) Encounter for pre-operative examination: Chart Review Chart Review: Acceptable Risk for Surgery Consults Requested none ASA ASA3 Proposed Anesthesia Anesthesia Type: MAC Risk / Benefits Reviewed With: PT / POA / Parent / Guardian, Accepts Plan and Informed Consent Obtained History Surgery Operation Date: 07/19/21 18:25 Proposed Procedures p Infusaport Removal - Edison Adamson MD, FACS Height/Weight Height: 5 ft 7 in Weight: 107.4 kg Allergies Allergy/AdvReac Type Severity Reaction Status Date / Time dexamethasone Allergy Intermediate HIVES Verified 07/18/21 20:03 latex Allergy Intermediate HIVES Verified 07/18/21 20:03 pregabalin Allergy Intermediate FACE AND Verified 07/18/21 20:03 LIPS SWELLED Sulfa (Sulfonamide Allergy Intermediate LUPUS Verified 07/18/21 20:03 Antibiotics) FLARE UP morphine Allergy Mild local Verified 07/18/21 20:03 reaction at site duloxetine AdvReac Intermediate SEROTONIN Verified 07/18/21 20:03 SYNDROME escitalopram AdvReac Intermediate WENT CRAZY Verified 07/18/21 20:03 sertraline [From Zoloft] AdvReac Intermediate WENT CRAZY Verified 07/18/21 20:03 Medications Home Medications Medication Instructions Recorded Confirmed Last Taken levothyroxine 25 mcg tablet 25 mcg PO QAM 07/10/19 07/18/21 07/18/21 gabapentin 300 mg capsule 900 mg PO TID #30 cap 08/30/20 07/18/21 07/18/21 lubiprostone 24 mcg capsule 24 mcg PO BID 05/08/21 07/18/21 07/18/21 (Amitiza) am dose alprazolam 1 mg tablet 1 mg PO TID PRN 06/13/21 07/18/21 07/17/21 baclofen 10 mg tablet 20 mg PO TID PRN tab 06/19/21 07/18/21 Unknown carvedilol 12.5 mg tablet 12.5 mg PO BID 06/19/21 07/18/21 07/18/21 am dose chlorthalidone 25 mg tablet 25 mg PO QAM 06/19/21 07/18/21 07/18/21 famotidine 20 mg tablet 20 mg PO BID 06/19/21 07/18/21 07/18/21 linaclotide 290 mcg capsule 290 mcg PO QAM 06/19/21 07/18/21 07/18/21 (Linzess) am dose losartan 100 mg tablet 50 mg PO QAM tab 06/19/21 07/18/21 07/18/21 am dose clonidine HCl 0.1 mg tablet 0.1 mg PO DAILY PRN 07/12/21 07/18/21 07/12/21 fluoxetine 20 mg capsule 40 mg PO QAM 07/12/21 07/18/21 07/18/21 furosemide 20 mg tablet (Lasix) 20 mg PO QAM 07/12/21 07/18/21 07/18/21 galcanezumab-gnlm 120 mg/mL 120 mg SUBCUT MO 07/12/21 07/18/21 07/17/21 subcutaneous pen injector (Emgality Pen) metoprolol tartrate 50 mg tablet 50 mg PO QAM 07/12/21 07/18/21 07/18/21 (Lopressor) am dose oxycodone 5 mg tablet 5 mg PO Q8H PRN #20 tab 07/14/21 07/18/21 07/18/21 13:00 tramadol 50 mg tablet 50 mg PO Q8H 14 Days #42 tab 07/14/21 07/18/21 07/18/21 Saccharomyces boulardii 250 mg 250 mg PO BID #20 cap 07/17/21 07/18/21 07/18/21 capsule (Florastor) azithromycin 250 mg tablet 250 mg PO DAILY 4 Days #4 tab 07/17/21 07/18/21 07/18/21 cefdinir 300 mg capsule 300 mg PO BID 10 Days #20 cap 07/17/21 07/18/21 07/18/21 am dose cholecalciferol (vitamin D3) 50 0 mcg PO QAM 07/17/21 07/18/21 07/18/21 mcg (2,000 unit) tablet (Vitamin D3) multivitamin 1 tab PO QAM 07/17/21 07/18/21 07/18/21 ondansetron 4 mg disintegrating 4 mg PO Q6H PRN #14 tab 07/17/21 07/18/21 Unknown tablet prednisone 20 mg tablet 60 mg PO DAILY 4 Days #12 tab 07/17/21 07/18/21 07/18/21 Active Medications Generic Name Dose Route Start Last Admin Trade Name Freq PRN Reason Stop Dose Admin Alprazolam 1 mg 07/18/21 23:31 07/19/21 00:45 Alprazolam 0.5 Mg Tablet PO 08/17/21 23:30 1 mg TID PRN Administration Anxiety Enoxaparin Sodium 40 mg 07/19/21 01:30 07/19/21 01:22 Enoxaparin Inj 40 Mg/0.4 Ml Syr SQ 08/18/21 01:29 40 mg Q12 THAO Administration Ceftriaxone Sodium 2,000 mg/ 70 mls @ 140 mls/hr 07/19/21 04:00 07/19/21 04:11 Dextrose IV 07/26/21 03:59 Infused Q24H THAO Infusion Protocol Azithromycin 500 mg/ Dextrose 255 mls @ 127.5 mls/hr 07/19/21 01:00 07/19/21 03:19 IV 07/26/21 00:59 Infused Q24H THAO Infusion Vancomycin HCl 1,500 mg/ 530 mls @ 200 mls/hr 07/19/21 06:00 07/19/21 07:54 Sodium Chloride IV 08/02/21 05:59 0 mls/hr Q12H THAO Infusion Ketorolac Tromethamine 15 mg 07/19/21 04:22 07/19/21 04:26 Ketorolac Tromethamine 15 Mg/Ml Vial IV 07/24/21 04:21 15 mg Q6H PRN Administration Pain Levothyroxine Sodium 25 mcg 07/19/21 06:30 07/19/21 06:16 Levothyroxine Sodium 25 Mcg Tablet PO 08/18/21 06:29 25 mcg DAILYBB THAO Administration Ondansetron HCl 4 mg 07/18/21 23:31 07/19/21 00:45 Ondansetron 4 Mg Od Tab PO 08/17/21 23:30 4 mg Q6H PRN Administration nausea and vomiting Oxycodone HCl 5 mg 07/18/21 23:31 07/19/21 01:01 Oxycodone Hcl Ir 5 Mg Tab (Immediate Release) PO 08/01/21 23:30 5 mg Q8H PRN Administration severe pain (scale score 7-10) Tramadol HCl 50 mg 07/19/21 01:15 07/19/21 06:16 Tramadol Hcl 50 Mg Tablet PO 08/18/21 01:14 50 mg Q8 THAO Administration NPO Date Last Intake of Fluids: 07/19/21 Time Last Intake of Fluids: 23:00 Date Last Intake of Solids: 07/19/21 Time Last Intake of Solids: 14:30 Past Medical History Medical History Abdominal pain Acute confusion Anxiety Chest pain Chronic pain syndrome Confusion Dehydration Depression Fibromyalgia Gastritis Gastroparesis Headache History of kidney infection History of lupus anticoagulant disorder History of migraine History of multiple miscarriages History of ovarian cyst History of umbilical hernia Hypertension Hypertensive urgency Hypothyroidism Intractable epigastric abdominal pain Lupus nephritis Osteoarthritis Peptic ulcer disease Pleuritis (09/17/14) history of Poorly-controlled hypertension Post traumatic stress disorder Pulmonary embolism history of Urinary tract infection Exercise / Class Metabolic Activity II 4-5 Yardwork/Stairs/Walk up hill Past Family History Family History Sister SLE (systemic lupus erythematosus) Family/Other SLE (systemic lupus erythematosus) maternal side Past Surgical History Surgical History H/O: hysterectomy History of tonsillectomy and adenoidectomy Hx of appendectomy Hx of cholecystectomy Port-A-Cath in place (08/29/20) Mediport Placement, Left Subclavian Vein Dr. Garcia 08/29/2020 Past Anesthesia History No Hx of Anesthesia Complications and No Family Hx of Anesthesia Complications History of PONV No Hx of PONV and No Hx of Motion Sickness Social History Smoking Status: Former smoker tobacco type: cigarettes Hx Alcohol Use: No Alcohol type: beer alcohol intake frequency: a few times a month Hx Substance Use: No substance use type: does not use Substance Use Type Other:: HISTORY OF PRESCRIPTION USE Last Used Substance: Days (ago) Physical Exam Vital Signs Last Vital Signs Temp 98.1 F 07/19/21 08:18 Pulse 57 L 07/19/21 08:18 Resp 18 07/19/21 08:18 BP 137/83 07/19/21 08:18 Pulse Ox 99 07/19/21 08:18 ENMT Mouth: no dentition abnormality Thyromental Distance: > or= 3.5 Finger Breadths Mallampati Class: II Neck normal visual inspection Respiratory normal respiratory effort Auscultation: lungs clear to auscultation bilaterally Cardiovascular Rate/Rhythm: regular rate and regular rhythm Testing Laboratory Results 07/18/21 16:45 07/18/21 16:45 PT 10.9 Seconds (9.0-12.0) 07/18/21 16:45 INR 1.1 (0.9-1.1) 07/18/21 16:45 APTT 73.2 Seconds (21.0-31.0) H* 07/18/21 16:45 Urine Color Yellow 07/18/21 16:50 Urine Appearance Clear (Clear) 07/18/21 16:50 Urine pH 5.5 (4.5-7.5) 07/18/21 16:50 Ur Specific [place] 1.013 (1.000-1.030) 07/18/21 16:50 Urine Protein Negative (Negative) 07/18/21 16:50 Urine Glucose (UA) Negative (Negative) 07/18/21 16:50 Urine Ketones Negative (Negative) 07/18/21 16:50 Urine Nitrite Negative (Negative) 07/18/21 16:50 Ur Leukocyte Esterase Negative (Negative) 07/18/21 16:50 Urine WBC (Auto) 1-5 /hpf (0-5) 07/18/21 16:50 Urine RBC (Auto) 10-30 /hpf (0-4) H 07/18/21 16:50 U Hyaline Cast (Auto) 1-5 /lpf (0-5) 07/18/21 16:50 U Epithel Cells (Auto) >30 /lpf (0-5) H 07/18/21 16:50 Urine Bacteria (Auto) 1+ (Negative) H 07/18/21 16:50 07/18/21 16:45 Aerobic Blood Culture - Preliminary Blood Gram positive cocci in chains Anaerobic Blood Culture - Preliminary Gram positive cocci in chains
[2021-07-19] MEDS ORDERED: ATROPINE SULFATE 0.1 MG/ML 10ML SYR IV PRN (08:45)
[2021-07-19] MEDS ORDERED: ONDANSETRON INJ 2 MG/ML 2 ML VIAL IV PRN (08:45)
[2021-07-19] MEDS ORDERED: ePHEDrine sulfate 50 MG/ML AMP IV PRN (08:45)
[2021-07-19] MEDS ORDERED: KETAMINE 50 MG/5 ML SYRINGE ONE (08:51)
--- NOTE | 2021-07-19 09:21 | Post Operative Brief Note ---
PG Immediate Post Op with CF Date of Surgery July 19, 2021 Pre & Post Diagnosis Operation Date: 07/19/21 18:25 Pre-Op Diagnosis: Bactremia Post-Op Diagnosis: Bactremia I identified the patient and participated in the time-out.: Yes Procedure Operation Date: 07/19/21 18:25 Actual Procedures p Infusaport Removal(Not Applicable) - Edison Adamson MD, FACS Surgeon Edison Adamson MD, FACS Singeing Torch Operator garrett amos Estimated Blood Loss 10 Findings Consistent with Post-Op Diagnosis Specimens Specimen Description: Culture 1 aport catheter: gram stain, culture and sensitivity, aerobic/anaerobic
[2021-07-19] MEDS: fentaNYL citrate 100 MCG/2 ML VIAL IV PRN ×4 (09:32→09:47)
--- NOTE | 2021-07-19 09:36 | Operative Report ---
Post Operative Report Pre & Post Diagnosis Operation Date: 07/19/21 18:25 Pre-Op Diagnosis: Bactremia Post-Op Diagnosis: Bactremia I identified the patient and participated in the time-out.: Yes Procedure Operation Date: 07/19/21 18:25 Actual Procedures p Infusaport Removal(Not Applicable) - Edison Adamson MD, FACS The patient was brought into the operating room theater supine position IV sedation given left chest area was prepped byline solution properly draped timeout was had patient identified 1% Xylocaine without epinephrine was used to infiltrate along the incision that had been used to place the MRI port after achieving anesthetic level and incision was made approximately 3 6/2 cm long deepened through subcu found some edema in the subcutaneous tissue more than just from the local indicating there may be infection along the cord in that site that we worked more coded and identified the pseudocapsule top of the port which we incised and cut the port and a 3 securing sutures of nylon peeled away the fibrin sheath it was long the catheter and exerting of constant pressure were able to free it up from the subclavian tissue once this broke loose we able to extract it without any difficulty L pressure in the subclavian supraclavicular area the catheter was checked and removed in total sent to the lab for cultures the wound was closed with interrupted 3-0 nylon patient had some bleeding in the subcutaneous tissue apparently she was administered some Lovenox during the classified advertising clerk dressing was applied procedure was tolerated well estimate blood loss 10 cc Addendum Kelly Linn physician assistant cross country coach was present throughout the case and helped the retraction exposure and wound closure addendum Addendum spoke to her significant other Galindo at [phone] Surgeon Edison Adamson MD, FACS Paper Tube Machine Operator garrett amos Estimated Blood Loss 10 Findings Consistent with Post-Op Diagnosis Access port MRI compatible Specimens Access port catheter Indications Infected access port Description of Procedure merda I attest to the content of the Intraoperative Record and any orders documented therein. Any exceptions are noted below.
[2021-07-19] MEDS ORDERED: HYDROmorphone INJ 1 MG/ML SYRINGE ONE (09:50)
--- NOTE | 2021-07-19 10:16 | Pharmacy Report ---
Pharmacy Vanc AUC Short Note - Date of Service July 19, 2021 - Assessment & Plan Assessment 40 year old with a past medical history including systemic lupus, serositis, hypothyroidism, hematemesis, lupus anticoagulant disorder, pulmonary embolism, and fibromyalgia presenting with positive blood cultures. Recently admitted 07/12-07/14 for lupus exacerbation. Blood cultures on 07/12 resulting in E. Faecalis, alpha strep and coag neg staph, repeat blood cultures pending. On cefdinir/azithromycin at home for possible pneumonia staring on 07/17. Vancomycin started on admission in addition to rocephin and azithromycin. Plan for surgery today to remove port as concern for possible source of bacteremia Plan Vancomycin * AUC/DALJIT is the preferred PK/PD target for vancomycin * AUC guided dosing is effective and associated with decreased risk of nephrotoxicity compared to traditional trough targets * Loading dose of vancomycin 2750 mg x 1 given last evening. Started on vancomycin 1500 mg (~14 mg/kg) iv q 12 hrs. This dosing is predicted to achieve a trough level of ~18 mcg/mL is predicted to achieve target AUC/DALJIT of 400-600 mg/L.hr and may be associated with a 14% risk of nephrotoxicity * Plan to order a vancomycin prior to the 0600 dose tomorrow to assess dosing Pharmacy will continue to follow and will adjust dose/frequency as necessary. Thank you.
[2021-07-19] MEDS ORDERED: HYDROmorphone INJ 1 MG/ML SYRINGE IV PRN (10:17)
--- NOTE | 2021-07-19 10:19 | Anesthesiology Progress Note ---
Date of Service July 19, 2021 Anesthesia Post Procedure Vital Signs Vital Signs: Temp Pulse Pulse Pulse Pulse Resp BP 07/19/21 09:55 49 L 13 07/19/21 09:45 50 L 12 07/19/21 09:35 54 L 20 07/19/21 09:28 96.8 F L 59 L 12 07/19/21 08:18 98.1 F 57 L 18 07/19/21 07:39 98.4 F 64 16 07/18/21 23:55 97.7 F 61 16 07/18/21 22:00 66 19 127/76 07/18/21 16:27 83 18 07/18/21 15:54 98.6 F 75 18 161/95 H BP BP Pulse Ox 07/19/21 09:55 128/79 94 07/19/21 09:45 134/79 94 07/19/21 09:35 139/85 97 07/19/21 09:28 146/84 H 96 07/19/21 08:18 137/83 99 07/19/21 07:39 97/61 L 94 07/18/21 23:55 137/82 98 07/18/21 22:00 96 07/18/21 16:27 185/97 H 97 07/18/21 15:54 97 Pain Intensity Left Chest: Pain Intensity: 7 Transfer of Care Handoff Completed per policy Notes Mental Status: alert / awake / arousable and participated in evaluation Patient Amnestic to Procedure: Yes Nausea / Vomiting: adequately controlled Pain: adequately controlled Airway Patency, RR, SpO2: stable & adequate BP & HR: stable & adequate Hydration State: stable & adequate Anesthetic Complications: no major complications apparent and Pt Satisfied with anesthetic care
--- NOTE | 2021-07-19 10:39 | Electrocardiogram Report ---
Test Reason : Blood Pressure : / mmHG Vent. Rate : 079 BPM Atrial Rate : 079 BPM P-R Int : 166 ms QRS Dur : 086 ms QT Int : 424 ms P-R-T Axes : 053 019 038 degrees QTc Int : 486 ms Normal sinus rhythm Possible Left atrial enlargement Prolonged QT Abnormal ECG When compared with ECG of 17-JUL-2021 12:25, No significant change was found Confirmed by Kd Mayers ([id number]) on 07/19/2021 10:39:09 AM Referred By: REFERRED SELF Confirmed By:Flavio Mayers
[2021-07-19] MEDS: LINACLOTIDE 145 MCG CAPSULE PO SCH (10:43)
[2021-07-19] MEDS: SACCHAROMYCES BOULARDII 250 MG CAP PO SCH ×2 (10:44→21:46)
[2021-07-19] MEDS: predniSONE 20 MG TAB PO SCH (10:44)
[2021-07-19] MEDS: LUBIPROSTONE 8 MCG CAP PO SCH ×2 (10:44→21:45)
[2021-07-19] MEDS: GABAPENTIN 300 MG CAP PO SCH ×3 (10:44→21:45)
[2021-07-19] MEDS: FLUoxetine HCL 20 MG CAP PO SCH (10:44)
[2021-07-19] MEDS: FAMOTIDINE 20 MG TAB PO SCH ×2 (10:44→21:45)
[2021-07-19] MEDS: METOPROLOL TARTRATE 50 MG TAB PO SCH (10:45)
[2021-07-19] MEDS: LOSARTAN POTASSIUM 50 MG TAB PO SCH (10:45)
[2021-07-19] MEDS: carvediloL 12.5 MG TAB PO SCH ×2 (10:45→21:46)
[2021-07-19] MEDS: CHLORTHALIDONE 25 MG TAB PO SCH (10:45)
[2021-07-19 11:22] LABS: Basophils # (auto) 0.03 K/uL (0-0.2); Basophils % (auto) 0.5 %; Eosinophils # (auto) 0.06 K/uL (0-0.5); Eosinophils % (auto) 0.9 %; Hematocrit (blood only) 30.9 % (37-47); Hemoglobin 9.9 g/dL (12.0-16.0); Immature Granulocytes # (auto) 0.06 K/uL (0.00-0.02); Immature Granulocytes % (auto) 0.9 %; Lymphocytes # (auto) 2.16 K/uL (1.2-3.4); Lymphocytes % (auto) 33.2 %; Mean Corpuscular Hemoglobin 30.4 pg (25-34); Mean Corpuscular Volume 94.8 fL (80-100); Mean Platelet Volume 9.6 fL (7.4-10.4); Monocytes # (auto) 0.39 K/uL (0.11-0.59); Neutrophils % (auto) 58.5 %; Platelet Count 321 K/uL (130-400); RDW Coefficient of Variation 13.5 % (11.5-14.5); RDW Standard Deviation 46.5 fL (36.4-46.3); Red Blood Count 3.26 M/uL (4.2-5.4)
[2021-07-19 11:40] LABS: Albumin Level 2.8 gm/dl (3.4-5.0); BUN Creatinine Ratio 13.1 (10-20); Calcium 8.8 mg/dl (8.5-10.1); Creatinine Clr Calc Pharmacy 102.6 ml/min; Est GFR (African American) 90.3 ml/min; Est GFR (Non-African American) 77.9 ml/min
[2021-07-19 11:42] LABS: Albumin Globulin Ratio 0.6 (0.9-2); Bilirubin,Total 0.3 mg/dl (0.2-1); Globulin 4.6 gm/dl (2.5-4.0); Total Protein 7.4 gm/dl (6.4-8.2)
[2021-07-19] MEDS ORDERED: MoRPHine SULFATE CR 15 MG TABCR PO STA (15:06)
--- NOTE | 2021-07-19 16:42 | Hospitalist Progress Note ---
Date of Service July 19, 2021 Assessment & Plan (1) Bacteremia: Plan: 40-year-old female with a past medical history including hypertensive urgency/emergency, poorly controlled hypertension, peptic ulcer disease, systemic lupus, serositis, hypothyroidism, hematemesis, depression, lupus anticoagulant disorder, pulmonary embolism, and fibromyalgia presented to the ED for confirmed bacteremia. 1) Bacteremia -cultures drawn (07/17) grew gram positive cocci in chains, pt called back into ER for tx -possible source from port or ongoing pneumonia; UA neg -WBC 11.2, lactate WNL -IVF in ED, discontinued -zosyn and vanc x1 given in ED -cont. vanc., adjust coverage if VRE -repeat cultures pending -gen surg consulted for removal of port due to possible source -trend CBC 2) Pneumonia -Discharged home (07/17) for outpatient management with cefdinir and azithromycin -CT chest (07/17): focal consolidation right lower lung, few additional scattered nodular densities within the right lower lobe and left lung, trace bilateral effusions -WBC 11.2, lactate WNL -zosyn and vanc x1 given in ED -Continue Rocephin, azithromycin and vancomycin until sensitivities return. -trend CBC, procal at 0.52 -incentive spirometer q1h 3) Chronic pain -Sent home with 2 weeks worth of scheduled tramadol and as needed oxycodone for breakthrough pain on 07/14 -chronic pain due to rheumatologic disease, fibromyalgia, and anxiety; concern for growing opioid dependence and tolerance -tramadol and oxy taken earlier today per patient, provided no relief -Discontinued oxycodone and switch to oral morphine 15 mg twice daily. Continue scheduled tramadol. -Continue Toradol 15mg IV q6h PRN -We will do OMT on diaphragm to assist in bandlike pain she is describing. 3) Chest pain - presenting with chronic, expanding chest pain - Takotsubo cardiomyopathy at 04/2021 admission, repeat echo during 05/2021 admission showed return of normal EF - 05/09/21 cardiac cath did not show any evidence of CAD - ddx visceral hypersensitivity contributes to her abdominal pain, trigger points, costochondritis - EKG: NSR, no ST segment changes, prolonged QT 4) Systemic lupus -multisystem hx including recurrent miscarriages, HTN, perhaps related to SLE. -outpt f/u; has apt 09/2021 5) Poorly-controlled hypertension -Cont. home chlorthalidone, losartan, carvedilol, and lopressor -cont. home clonidine PRN 6) Gastroparesis -cont. home famotidine, Amitiza, and linzess 7) Hypothyroid: -cont. home levothyroxine (8) Depression and anxiety -Cont. home fluoxetine and Xanax 9) Fibromyalgia: -cont. home Gabapentin, baclofen DVT ppx: Lovenox FEN/GI: Regular Code Status: Full Dispo: med/surg Admission and Anticipated Discharge Date Admission Date: July 18, 2021 Supervising Physician Co-Signing Physician Notes Patient seen and examined with PGY 1, Dr. Adame. Agree with history, exam findings, assessment and plan of care as outlined. In brief, Ms. Rader is a 40-year-old female with history of fibromyalgia, chronic pain, hypertension admitted with bacteremia and pneumonia. Today, she continues to have pain. Her pain is mostly in the right diaphragm area. She reports that it feels like a vice. Her typical pain medication regimen of Toradol, tramadol and oxycodone has not reduce the pain at all. She reports the pain is a 9 out of 9 and even with the pain medication it is still a 9. Vital signs and nursing notes reviewed. Nontoxic-appearing. Heart with regular rate and rhythm. No edema. Lungs are clear to auscultation throughout all lung duarte. Good air movement throughout. Labs and imaging were reviewed. 1. Bacteremia. Cultures from July 17 are growing gram-positive cocci in chains, likely Enterococcus. Repeat cultures from this admission are growing gram-positive cocci. She is status post Zosyn and vancomycin in the emergency department. Continued her vancomycin. Port was removed today. There is a culture from the port area pending. 2. Pneumonia. Continue ceftriaxone and azithromycin. 3. Chest pain. Suspect that this is actually diaphragmatic pain. Please see below for her chronic pain regimen that we have changed. 4. Hypertension. Continue home chlorthalidone, losartan, Coreg, Lopressor and clonidine as needed. 5. Fibromyalgia. Continue with gabapentin and baclofen. 6. Chronic pain. She is typically on tramadol and Aloxi. Toradol was started this admission. We discussed trying to switch her from tramadol and oxycodone to using oral morphine as IV morphine has worked well for her in the past. She is open to trying this. Disposition: Pending clinical improvement and negative blood cultures. Subjective Patient seen at bedside this morning. Discussed with the patient about her current condition and went to detail about how her port was likely the source of the infection that seeded the pneumonia as well as bacteremia she is currently experiencing. Patient states that right now the most frustrating thing for her is the pain that she is feeling and the regimen that she is receiving is not working for her and has had no pain relief. She describes her pain as a 9 out of 10 and is remained unchanged despite receiving Toradol, tramadol, and oxycodone. She is requesting morphine as this seems to be the most effective m odality for controlling her pain bring it from a 9 out of 10 to a 6 out of 10. Her baseline pain level is a 7 out of 10. Otherwise patient reports that her pain is mostly a bandlike pain around the bottom of her rib cage right greater than left. Additionally patient reports that she has had a bowel movement yesterday, prior to this she had gone days without having 1 due to her chronic GI dysmotility disorder. Patient has no other complaints or comments at this time. Review of Systems Review of Systems: All systems reviewed & are unremarkable except as noted in HPI & below Physical Exam Constitutional: well developed, well nourished and + obese; no acute distress Eyes: + anicteric sclerae Neck: normal visual inspection and trachea midline Respiratory: normal respiratory effort; no respiratory distress Auscultation: + diminished lung sounds (On the right lung base.) Cardiovascular: RRR, no murmur, no edema Gastrointestinal (Abdomen): Percussion/Palpation: + abdomen tender (Mild tenderness to palpation diffusely of the abdomen) and abdomen soft Skin: no rashes, warm and dry Neurologic: moves all extremities Psychiatric: A+Ox3, euthymic affect Results & Data Results & Data ([facility]) Vital Signs (Past 12 Hours) Vital Signs Temp Pulse Pulse Resp BP BP Pulse Ox 07/19/21 14:20 36.8 C 51 L 16 112/73 96 07/19/21 13:24 56 L 18 114/76 96 07/19/21 12:32 36.7 C 55 L 16 104/65 96 07/19/21 11:30 60 18 102/68 97 07/19/21 11:00 52 L 18 119/73 96 07/19/21 10:37 36.7 C 58 L 18 130/76 95 07/19/21 10:25 15 112/86 95 07/19/21 10:15 36.1 C L 52 L 13 126/76 94 07/19/21 10:05 53 L 14 112/87 94 07/19/21 09:55 49 L 13 128/79 94 07/19/21 09:45 50 L 12 134/79 94 07/19/21 09:35 54 L 20 139/85 97 07/19/21 09:28 36.0 C L 59 L 12 146/84 H 96 07/19/21 08:18 36.7 C 57 L 18 137/83 99 07/19/21 07:39 36.9 C 64 16 97/61 L 94
[2021-07-19] MEDS: MoRPHine SULFATE CR 15 MG TABCR PO SCH (21:45)
[2021-07-20] MEDS: AZITHROMYCIN 500 MG in DEXTROSE 5% 250 ML IV SCH (01:11)
[2021-07-20] MEDS: cefTRIAXone SODIUM 2,000 MG in DEXTROSE 5% 50 ML IV SCH (03:14)
[2021-07-20] MEDS: ALPRAZolam 0.5 MG TABLET PO PRN ×3 (04:18→20:24)
[2021-07-20] MEDS: BACLOFEN 20 MG TAB PO PRN (04:19)
[2021-07-20] MEDS: traMADol HCL 50 MG TABLET PO SCH ×3 (05:02→22:27)
[2021-07-20] MEDS ORDERED: VANCOMYCIN TROUGH ONE ×2 (05:30→19:30)
[2021-07-20] MEDS: LEVOTHYROXINE SODIUM 25 MCG TABLET PO SCH (06:23)
[2021-07-20] MEDS: MoRPHine SULFATE CR 15 MG TABCR PO SCH (07:54)
[2021-07-20] MEDS: predniSONE 20 MG TAB PO SCH (07:55)
[2021-07-20] MEDS: METOPROLOL TARTRATE 50 MG TAB PO SCH (07:55)
[2021-07-20] MEDS: SACCHAROMYCES BOULARDII 250 MG CAP PO SCH ×2 (07:55→20:11)
[2021-07-20] MEDS: CHLORTHALIDONE 25 MG TAB PO SCH (07:56)
[2021-07-20] MEDS: FLUoxetine HCL 20 MG CAP PO SCH (07:56)
[2021-07-20] MEDS: carvediloL 12.5 MG TAB PO SCH ×2 (07:57→20:11)
[2021-07-20] MEDS: FAMOTIDINE 20 MG TAB PO SCH ×2 (07:57→20:11)
[2021-07-20] MEDS: GABAPENTIN 300 MG CAP PO SCH ×3 (07:58→20:12)
[2021-07-20] MEDS: LOSARTAN POTASSIUM 50 MG TAB PO SCH (07:58)
[2021-07-20] MEDS: ENOXAPARIN INJ 40 MG/0.4 ML SYR SQ SCH ×2 (07:59→20:11)
[2021-07-20] MEDS: LUBIPROSTONE 8 MCG CAP PO SCH ×3 (08:01→20:12)
[2021-07-20] MEDS: LINACLOTIDE 145 MCG CAPSULE PO SCH ×2 (08:02→08:19)
--- NOTE | 2021-07-20 08:09 | Hospitalist Progress Note ---
Date of Service July 20, 2021 Assessment & Plan (1) Bacteremia: Plan: 40-year-old female with a past medical history including hypertensive urgency/emergency, poorly controlled hypertension, peptic ulcer disease, systemic lupus, serositis, hypothyroidism, hematemesis, depression, lupus anticoagulant disorder, pulmonary embolism, and fibromyalgia presented to the ED for confirmed bacteremia. 1) Bacteremia -cultures drawn (07/17) grew gram positive cocci in chains, pt called back into ER for tx -possible source from port or ongoing pneumonia -WBC 11.2 on admission, lactate WNL -WBC 10 (07/20) -zosyn and vanc x1 given in ED -port removed by gen surg -left port catheter cultures: probably enterococcus -repeat blood cultures no growth after 24 hours -cont. vanc., adjust coverage if VRE -trend CBC 2) Pneumonia -Discharged home (07/17) for outpatient management with cefdinir and azithromycin -CT chest (07/17): focal consolidation right lower lung, few additional scattered nodular densities within the right lower lobe and left lung, trace bilateral effusions -WBC 11.2 on admission, lactate WNL, procal 0.52 -WBC 10 (07/20) -zosyn and vanc x1 given in ED -Continue Rocephin (day 2 of 7), azithromycin (day 2 of 3) -incentive spirometer q1h -trend CBC 3) Chronic pain -Sent home with 2 weeks worth of scheduled tramadol and as needed oxycodone for breakthrough pain on 07/14 -chronic pain due to rheumatologic disease, fibromyalgia, and anxiety; concern for growing opioid dependence and tolerance -tramadol and oxy taken earlier (07/19) per patient, provided no relief -pain not controlled on trial of oral morphine -Continue Toradol 15mg IV q6h PRN -Begin morphine 4mg IV q6h PRN -monitor kidney function 4) Elevated LFTs--obstructive appearing pattern -h/o cholecystectomy -ddx hepatitis vs hepatocellular injury vs biliary obstruction -(07/19): AST 108, ALT 104, ALP 438 -(07/20): AST 49, ALT 93, ALP 367 -positive murphys sign, TTP RUQ -RUQ US: no biliary duct dilation, exam compromised by suboptimal penetration, partially obscured pancreas -trend CMP 4) Chest pain - presenting with chronic, expanding chest pain - Takotsubo cardiomyopathy at 04/2021 admission, repeat echo during 05/2021 admission showed return of normal EF - 05/09/21 cardiac cath did not show any evidence of CAD - ddx visceral hypersensitivity contributes to her abdominal pain, trigger points, costochondritis - EKG: NSR, no ST segment changes, prolonged QT 5) Systemic lupus -multisystem hx including recurrent miscarriages, HTN, perhaps related to SLE. -outpt f/u; has apt 09/2021 6) Poorly-controlled hypertension -Cont. home chlorthalidone, losartan, carvedilol, and lopressor -cont. home clonidine PRN 7) Gastroparesis -cont. home famotidine, Amitiza, and linzess 8) Hypothyroid: -cont. home levothyroxine 9) Depression and anxiety -Cont. home fluoxetine and Xanax 10) Fibromyalgia: -cont. home Gabapentin, baclofen 11) diarrhea -complains of nonodorous diarrhea last night every hour -c. diff pending DVT ppx: Lovenox FEN/GI: Regular Code Status: Full Dispo: med/surg Admission and Anticipated Discharge Date Admission Date: July 18, 2021 Supervising Physician Co-Signing Physician Notes Patient seen and examined with PGY 1, Dr. Mccarty. Agree with history, exam findings, assessment and plan of care as outlined. In brief, Ms. Rader is a 40-year-old female with history of fibromyalgia, chronic pain, hypertension admitted with bacteremia and pneumonia. Today, she continues to have pain. Reports that she thinks the antibiotics are causing her to have widespread, whole body pain. Continues to have right sided flank/RUQ pain. Some nausea but no vomiting. Generally feeling unwell. Vital signs and nursing notes reviewed. Nontoxic-appearing. Heart with regular rate and rhythm. No edema. Lungs are clear to auscultation throughout all lung duarte. Good air movement throughout. +tenderness in the RUQ with a positive murphys despite hx of cholecystectomy. Labs and imaging were reviewed. 1. Bacteremia. Cultures from July 17 are growing gram-positive cocci in chains, likely Enterococcus. Repeat cultures from this admission are growing gram-positive cocci. She is status post Zosyn and vancomycin in the emergency department. Continued her vancomycin. Port was removed today. There is a culture from the port area pending. 2. Pneumonia. Continue ceftriaxone and azithromycin. 3. RUQ pain. In the setting of elevated LFTs in a cholestatic pattern, could there be a retained stone? Will also check GGT in the AM. RUQ ultrasound without biliary ductal dilatation. Body of the pancreas is normal appearing but head and tail of the pancreas are obscured. 4. Hypertension. Continue home chlorthalidone, losartan, Coreg, Lopressor and clonidine as needed. 5. Fibromyalgia. Continue with gabapentin and baclofen. 6. Chronic pain. Started toradol, added IV morphine with plans to wean as pain improves. Reviewed prior discharge summaries in which previous hospitalist have discussed with her that her pain may be related to visceral hypersensitivity or trigger points. May need to seek assistance from pain management while she is here if we are not able to provide pain relief. Disposition: Pending clinical improvement and negative blood cultures. Subjective Patient seen at bedside this morning. Says her pain has not been controlled even on the oral morphine. Would like similar regimen to what she had during her last hospital stay 1-2 weeks ago. Still complains of mild SOB on inspiration and a vice like pain on her right side near her ribs, close to the site of her pneumonia. Review of Systems Review of Systems: Constitutional: denies fever, night sweats, chills. +fatigue HEENT: denies congestion, sore throat. CV: Denies palpitations. +chest pain Resp: denies cough. +SOB on inspiration with pain GI: Denies diarrhea, vomiting, constipation. +abdominal pain, +nausea, +diarrhea. : denies pain with urination, change in urinary frequency Physical Exam Constitutional: well developed, well nourished, + acute distress (mild) and + obese Eyes: + anicteric sclerae Neck: normal visual inspection and trachea midline Respiratory: normal respiratory effort (at rest) and + respiratory distress (on inspiration) Auscultation: + diminished lung sounds (On the right lung base) Cardiovascular: RRR, no murmur, no edema Gastrointestinal (Abdomen): Percussion/Palpation: + abdomen tender (diffusely but most in RUQ) and abdomen soft; no guarding and abdomen not rigid +edmond's sign Skin: port removed w/ no signs of infection at site Neurologic: moves all extremities Psychiatric: A+Ox3, euthymic affect Results & Data Results & Data ([facility]) Vital Signs (Past 12 Hours) Vital Signs Temp Pulse Resp BP Pulse Ox 07/20/21 07:46 36.5 C 65 18 159/93 H 99 07/20/21 04:22 36.6 C 52 L 17 147/88 H 97 07/19/21 22:49 36.6 C 52 L 17 144/82 H 97 07/19/21 21:44 52 L 122/82 97 Resident Activity Tracking Resident Involvement: Resident Care Provided Care Provided: Adult Hospital Medicine
[2021-07-20] MEDS: VANCOMYCIN HCL 1,500 MG in SODIUM CHLORIDE 0.9% 500 ML IV SCH ×2 (08:23→20:10)
[2021-07-20 10:05] LABS: Creatinine Clr Calc Pharmacy 113.7 ml/min; Est GFR (African American) 102.2 ml/min; Est GFR (Non-African American) 88.2 ml/min
[2021-07-20 10:35] LABS: Alanine Aminotransferase 93 (12-78); Albumin Level 2.7 gm/dl (3.4-5.0); Aspartate Aminotransferase 49 U/L (15-37); BUN Creatinine Ratio 11.1 (10-20); Bilirubin Direct < 0.1 mg/dl (0-0.2); Blood Urea Nitrogen 9 mg/dl (7-18); Calcium 8.9 mg/dl (8.5-10.1); Carbon Dioxide 27 mmol/L (21-32); Chloride 105 mmol/L (98-107); Creatinine Clr Calc Pharmacy 116.5 ml/min; Est GFR (African American) 105.3 ml/min; Est GFR (Non-African American) 90.8 ml/min; Glucose 110 mg/dl (70-99); Potassium 3.6 mmol/L (3.5-5.1); Sodium 138 mmol/L (136-145)
[2021-07-20 10:37] LABS: Alkaline Phosphatase 367 U/L (45-117); Bilirubin,Total 0.2 mg/dl (0.2-1)
[2021-07-20 10:56] LABS: Basophils # (auto) 0.02 K/uL (0-0.2); Basophils % (auto) 0.2 %; Eosinophils # (auto) 0.02 K/uL (0-0.5); Eosinophils % (auto) 0.2 %; Hematocrit (blood only) 30.3 % (37-47); Hemoglobin 9.7 g/dL (12.0-16.0); Immature Granulocytes # (auto) 0.04 K/uL (0.00-0.02); Immature Granulocytes % (auto) 0.4 %; Lymphocytes # (auto) 1.61 K/uL (1.2-3.4); Mean Corpuscular Hemoglobin 30.5 pg (25-34); Mean Corpuscular Volume 95.3 fL (80-100); Mean Platelet Volume 10.6 fL (7.4-10.4); Monocytes # (auto) 0.72 K/uL (0.11-0.59); Monocytes % (auto) 7.2 %; Neutrophils # (auto) 7.63 K/uL (1.4-6.5); Platelet Count 325 K/uL (130-400); RDW Coefficient of Variation 13.4 % (11.5-14.5); RDW Standard Deviation 46.4 fL (36.4-46.3); Red Blood Count 3.18 M/uL (4.2-5.4); White Blood Count 10.04 K/uL (4.8-10.8)
--- NOTE | 2021-07-20 11:39 | Ultrasound Report ---
US liver CLINICAL HISTORY: RUQ abdominal pain, s/p cholecystectomy years ago COMPARISON STUDY: CT of the abdomen and pelvis August 25, 2020. MRCP August 29, 2020. FINDINGS: This exam is compromised by suboptimal penetration. There is no biliary ductal dilatation s tatus post cholecystectomy. The common bile duct measures 5 mm in caliber. The great body is normal. Head and tail are obscured. There is no right hydronephrosis. No hepatic lesions are identified on is study. IMPRESSION: 1. No biliary ductal dilatation status post cholecystectomy. 2. Exam compromised by suboptimal penetration. Partially obscured pancreas. ACT 112: Negative or not required by law. Electronically signed by: Olegario Anderson M.D. 07/20/2021 11:38 AM
[2021-07-20] MEDS ORDERED: MoRPHine SULFATE 4 MG/ML 1 ML CARP\\VIAL IV PRN (11:50)
[2021-07-20] MEDS: KETOROLAC TROMETHAMINE 15 MG/ML VIAL IV PRN (16:44)
[2021-07-20] MEDS: MoRPHine SULFATE 4 MG/ML 1 ML CARP\\VIAL IV PRN ×2 (17:15→21:29)
[2021-07-20] MEDS: ONDANSETRON 4 MG OD TAB PO PRN (20:24)
--- NOTE | 2021-07-20 21:22 | Pharmacy Report ---
Pharmacy Abx Dose Short Note - Date of Service July 20, 2021 - Assessment & Plan Assessment 40 year old on vancomycin + ceftriaxone + azithromycin for treatment of E.faecalis bacteremia and pneumonia. PMH including systemic lupus, serositis, hypothyroidism, hematemesis, lupus anticoagulant disorder, pulmonary embolism, and fibromyalgia. Recently admitted 07/12-07/14 for lupus exacerbation. On cefdinir/azithromycin at home for possible pneumonia staring on 07/17. Plan Vancomycin * Trough level of 14.9 mcg/mL this evening. * Trough level correlates to AUC ~500 * Target AUC/DALJIT of 400-600 mg/L.hr * AUC/DALJIT is the preferred PK/PD target for vancomycin * Continue dose of 1500 mg IV every 12h. * Will repeat vanco level in 48-72 hours or earlier if clinically warranted Pharmacy will continue to follow and will adjust dose/frequency as necessary. Thank you.
[2021-07-21] MEDS: AZITHROMYCIN 500 MG in DEXTROSE 5% 250 ML IV SCH (01:14)
[2021-07-21] MEDS: MoRPHine SULFATE 4 MG/ML 1 ML CARP\\VIAL IV PRN ×7 (01:22→22:52)
[2021-07-21] MEDS: cefTRIAXone SODIUM 2,000 MG in DEXTROSE 5% 50 ML IV SCH (03:21)
[2021-07-21] MEDS: LEVOTHYROXINE SODIUM 25 MCG TABLET PO SCH (06:16)
[2021-07-21] MEDS: traMADol HCL 50 MG TABLET PO SCH ×3 (06:16→21:07)
[2021-07-21] MEDS: ALBUT/IPRATROP 3MG/0.5MG NEB 3 ML VIAL NEB PRN (07:03)
[2021-07-21] MEDS: ALPRAZolam 0.5 MG TABLET PO PRN ×2 (08:32→21:11)
[2021-07-21] MEDS: VANCOMYCIN HCL 1,500 MG in SODIUM CHLORIDE 0.9% 500 ML IV SCH ×2 (08:32→21:07)
[2021-07-21] MEDS: GABAPENTIN 300 MG CAP PO SCH ×3 (08:33→21:08)
[2021-07-21] MEDS: carvediloL 12.5 MG TAB PO SCH ×3 (08:33→21:16)
[2021-07-21] MEDS: FAMOTIDINE 20 MG TAB PO SCH ×2 (08:34→21:09)
[2021-07-21] MEDS: LOSARTAN POTASSIUM 50 MG TAB PO SCH (08:35)
[2021-07-21] MEDS: FLUoxetine HCL 20 MG CAP PO SCH (08:35)
[2021-07-21] MEDS: METOPROLOL TARTRATE 50 MG TAB PO SCH (08:36)
[2021-07-21] MEDS: SACCHAROMYCES BOULARDII 250 MG CAP PO SCH ×2 (08:36→21:09)
[2021-07-21] MEDS: ENOXAPARIN INJ 40 MG/0.4 ML SYR SQ SCH ×2 (08:37→21:09)
[2021-07-21] MEDS: CHLORTHALIDONE 25 MG TAB PO SCH (08:37)
[2021-07-21] MEDS ORDERED: ERGOCALCIFEROL 50,000 UNITS 1250 MCG CAP PO SCH (09:00)
[2021-07-21] MEDS: BACLOFEN 20 MG TAB PO PRN (09:51)
--- NOTE | 2021-07-21 11:52 | XRay Report ---
XR chest 2V PA/lateral CLINICAL HISTORY: Cough. COMPARISON STUDY: Chest CT July 17, 2021. Chest radiograph July 18, 2021. FINDINGS: Mild cardiomegaly is unchanged. There are trace bilateral pleural effusions. A round focus of suspected consolidation within the right lower lobe remains unchanged. There is no evidence for pu lmonary edema. IMPRESSION: 1. No significant change in a round focus of suspected consolidation within the right lower lobe. Thi s favors an infectious process. Radiographic follow-up is recommended to ensure resolution. 2. Trace bilateral pleural effusions. ACT 112: Negative or not required by law. Electronically signed by: Olegario Anderson M.D. 07/21/2021 11:51 AM
[2021-07-21] MEDS: KETOROLAC TROMETHAMINE 15 MG/ML VIAL IV PRN ×2 (12:08→19:47)
[2021-07-21 12:41] LABS: Hemoglobin 9.8 g/dL (12.0-16.0); Mean Corpuscular Hemoglobin 30.1 pg (25-34); Mean Corpuscular Hgb Conc 31.6 g/dL (32-36); Mean Corpuscular Volume 95.1 fL (80-100); Nucleated RBC # (auto) 0.03 K/uL (0-0); Nucleated RBC % (auto) 0.3 %; Platelet Count 292 K/uL (130-400); RDW Coefficient of Variation 13.4 % (11.5-14.5); RDW Standard Deviation 46.5 fL (36.4-46.3); Red Blood Count 3.26 M/uL (4.2-5.4); White Blood Count 8.59 K/uL (4.8-10.8)
[2021-07-21 13:01] LABS: Albumin Level 2.4 gm/dl (3.4-5.0); BUN Creatinine Ratio 15.8 (10-20); Calcium 8.6 mg/dl (8.5-10.1); Creatinine Clr Calc Pharmacy 115.1 ml/min; Est GFR (African American) 103.7 ml/min; Est GFR (Non-African American) 89.5 ml/min; Potassium 3.2 mmol/L (3.5-5.1)
[2021-07-21 13:03] LABS: ALC (manual) 2.69 K/uL (1.2-3.4); ANC (manual) 5.22 K/uL (1.4-6.5); Eosinophils # (manual) 0.08 K/uL (0-0.5); Eosinophils % (manual) 0.9 %; Lymphocytes # (manual) 2.69 K/uL (1.2-3.4); Lymphocytes % (manual) 31.3 %; Monocytes % (manual) 3.5 %; Myelocytes % (manual) 3.5 %; Neutrophils # (manual) 5.22 K/uL (1.4-6.5); Neutrophils % (manual) 60.8 %
[2021-07-21 13:04] LABS: Albumin Globulin Ratio 0.6 (0.9-2); Bilirubin,Total 0.3 mg/dl (0.2-1); Globulin 4.2 gm/dl (2.5-4.0); Total Protein 6.6 gm/dl (6.4-8.2)
[2021-07-21] MEDS ORDERED: FLUCONAZOLE 50 MG TAB PO ONE (14:11)
--- NOTE | 2021-07-21 14:11 | Hospitalist Progress Note ---
Date of Service July 21, 2021 Assessment & Plan (1) Bacteremia: Plan: 40-year-old female with a past medical history including hypertensive urgency/emergency, poorly controlled hypertension, peptic ulcer disease, systemic lupus, serositis, hypothyroidism, hematemesis, depression, lupus anticoagulant disorder, pulmonary embolism, and fibromyalgia presented to the ED for confirmed bacteremia. 1) Bacteremia -cultures drawn (07/17) grew gram positive cocci in chains, pt called back into ER for tx -possible source from port or ongoing pneumonia; UA neg -WBC 11.2 on admission, lactate WNL -WBC 8.5 (07/21) -zosyn and vanc x1 given in ED -port removed by gen surg -left port/chest cultures: probably enterococcus with gram neg bacilli. -repeat blood cultures ordered today (07/21) -cont. vanc., can narrow following neg MRSA swab -trend CBC 2) Pneumonia, not improving -Discharged home (07/17) for outpatient management with cefdinir and azithromycin -CT chest (07/17): focal consolidation right lower lung, few additional scattered nodular densities within the right lower lobe and left lung, trace bilateral effusions -repeat chest XR (07/21): No significant change in a round focus of suspected consolidation within the right lower lobe, likely infectious, f/u XR for resolution recommended -WBC 11.2 on admission, lactate WNL, procal 0.52 -WBC 10 (07/20) -zosyn and vanc x1 given in ED -discontinue Rocephin. Begin Zosyn for broader coverage since clinically not improving. Cont. azithromycin for atypical coverage. -incentive spirometer q1h -urine legionella pending -trend CBC 3) Chronic pain -Sent home with 2 weeks worth of scheduled tramadol and as needed oxycodone for breakthrough pain on 07/14 -chronic pain due to rheumatologic disease, fibromyalgia, and anxiety; concern for growing opioid dependence and tolerance -tramadol and oxy taken earlier (07/19) per patient, provided no relief -pain not controlled on trial of oral morphine -Continue Toradol 15mg IV q6h PRN -Begin morphine 4mg IV q3h PRN -consider OMT on diaphragm to assist right sided thoracic pain -pain management consulted -monitor kidney function 4) Elevated LFTs, resolving -h/o cholecystectomy -ddx hepatitis vs hepatocellular injury vs biliary obstruction -(07/19): AST 108, ALT 104, ALP 438 -(07/21): AST 17, ALT 62, ALP 266 -positive murphys sign, TTP RUQ -RUQ US: no biliary duct dilation, exam compromised by suboptimal penetration, partially obscured pancreas -trend CMP, GGT pending 5) Candiduria -Urine culture grew melo (07/18) -complains of vaginal sensitivity during examination -speculum examination: white frothy vaginal discharge -Diflucan 150mg PO x1 6) Pelvic bleeding -overnight mild pelvic bleeding found when wiping -Hgb 9.8 -h/o hysterectomy ~8 years ago -ddx vaginal bleeding versus urethral bleeding -speculum examination shows no signs of bleeding -cont. to monitor 7) Chest pain - presenting with chronic, expanding chest pain - Takotsubo cardiomyopathy at 04/2021 admission, repeat echo during 05/2021 admission showed return of normal EF - 05/09/21 cardiac cath did not show any evidence of CAD - ddx visceral hypersensitivity contributes to her abdominal pain, trigger points, costochondritis - EKG: NSR, no ST segment changes, prolonged QT 8) Systemic lupus -multisystem hx including recurrent miscarriages, HTN, perhaps related to SLE. -outpt f/u; has apt 09/2021 9) Poorly-controlled hypertension -Cont. home chlorthalidone, losartan, carvedilol, and lopressor -cont. home clonidine PRN 10) Gastroparesis -cont. home famotidine, Amitiza, and linzess 11) Hypothyroid: -cont. home levothyroxine 12) Depression and anxiety -Cont. home fluoxetine and Xanax 13) Fibromyalgia: -cont. home Gabapentin, baclofen 14) diarrhea, resolved -complained of nonodorous diarrhea last night every hour -c. diff pending DVT ppx: Lovenox FEN/GI: Regular Code Status: Full Dispo: med/surg Admission and Anticipated Discharge Date Admission Date: July 18, 2021 Supervising Physician Co-Signing Physician Notes Patient seen and examined with PGY 1, Dr. Mccarty. Agree with history, exam findings, assessment and plan of care with the following updates and changes as described below: In brief, Ms. Rader is a 40-year-old female with history of fibromyalgia, chronic pain, hypertension admitted with bacteremia and pneumonia. Today, she continues to have pain. Reports that she continues to have some viselike pain around the right flank area. Now her pain is radiating up and do wn the right lower back and upper back. She has been trying to alternate the IV morphine with the Toradol but does not feel that it is adequately addressing her pain. Also reports that overnight and this morning she started having bright red blood on the toilet paper when she wiped after urination. Does report that there may be a little bit of irritation around the urethra but she has not noticed any albert bleeding. Has not noticed any clots or hematuria. She is status post hysterectomy and has not had bleeding since that hysterectomy several years ago. She denies any unusual vaginal discharge or itching. She denies dysuria, urinary urgency and hesitancy. We also received a message from the nurse that she has been coughing a bit more. She reports that her cough is a bit more frequent. Denies new or worsening shortness of breath. Has baseline chest pain but this has not been worsening. Vital signs and nursing notes reviewed. Nontoxic-appearing. Heart with regular rate and rhythm. No edema. Lungs are clear to auscultation throughout all lung duarte. Good air movement throughout. +tenderness in the RUQ with a positive murphys despite hx of cholecystectomy. Pelvic exam: There is no active bleeding. There is some irritation around the area of the urethra. Within the vaginal vault there is healthy mucosa but there is also some frothy, chunky white vaginal discharge. Labs and imaging were reviewed. 1. Bacteremia. Cultures from July 17 are growing Enterococcus. Repeat cultures on July 18 (1 of 2 bottles) from this admission are growing Enterococcus as well. Of note, there is 1 blood culture bottle that was drawn from her port on July 17 that is growing coag negative Staphylococcus and one blood culture bottle that was drawn on July 18 that is growing coag negative Staphylococcus. The culture from her chest that was done intraoperatively when they removed her port is growing Enterococcus as well as gram-negative bacilli. She received Zosyn and vancomycin in the emergency department. We have continued her vancomycin and have added on Zosyn now that her chest wound area is growing gram-negative bacilli until we have speciation and sensitivities. 2. Pneumonia. Legionella antigen pending. We will continue her azithromycin until that comes back negative. She has completed 3 days of azithromycin 500 mg daily for atypical community-acquired pneumonia. 3. RUQ pain. In the setting of elevated LFTs in a cholestatic pattern. AST and ALT have normalized. Alkaline phosphatase continues to remain elevated. GGT is pending. Right upper quadrant ultrasound done yesterday shows no biliary ductal dilatation. The body of the pancreas is normal-appearing but the head and tail of pancreas are obscured. 4. Asymptomatic candiduria. Given that she is not high risk for disseminated fungal infection and does not have a Pena catheter, defer additional candiduria treatment. 5. Yeast vaginitis. Unfortunately, we did not have a swab and we did her pelvic exam. However, she had frothy to chunky appearing white discharge within the vaginal vault. She was given a one-time dose of Diflucan 150 mg. 6. Vaginal bleeding. Suspect that this is actually more likely to be urethral bleeding. There was no active bleeding on exam. She is hemodynamically stable and her hemoglobin continues to be stable. No intervention necessary at this time. However, if she has bleeding again, she will let one of the nurses know so that we can reexamine the area. 7. Hypertension. Continue home chlorthalidone, losartan, Coreg, Lopressor and clonidine as needed. 8. Fibromyalgia. Continue with gabapentin and baclofen. 9. Chronic pain. Started toradol and have decreased her IV morphine to every 3 hours. We discussed with her that her chronic pain is possibly trigger point related or visceral hypersensitivity which has been discussed with her via multiple specialist in the past. A consult for pain management has been placed. Appreciate any recommendations and interventions that may be helpful. Disposition: Pending clinical improvement and negative blood cultures. Subjective Patient seen at bedside this morning. Says she took a turn for the worse overnight. Overall pain is again a 9/10 not controlled on current pain regimen. Complains of worsening right sided pain on inspiration, seems to be expanding on right back. Also had some bright red blood on the toilet paper with wiping. Thinks this is vaginal bleeding; however reports that she had a hyst many years ago and has not had bleeding since. Has not noticed any clots on the toilet paper. Review of Systems Review of Systems: Constitutional: denies fever, night sweats, chills. +fatigue HEENT: denies congestion, sore throat. CV: Denies palpitations. +chest pain Resp: +cough, +worsening SOB on inspiration with pain GI: Denies diarrhea, vomiting, constipation. +abdominal pain, +nausea. : denies pain with urination, change in urinary frequency Physical Exam Constitutional: well developed, well nourished, + acute distress (mild) and + obese Eyes: + anicteric sclerae Neck: normal visual inspection and trachea midline Respiratory: normal respiratory effort (at rest) and + respiratory distress (on inspiration) Auscultation: + diminished lung sounds (with wheezes in right lung base) Cardiovascular: RRR, no murmur, no edema Gastrointestinal (Abdomen): Percussion/Palpation: + abdomen tender (diffusely but most in RUQ) and abdomen soft; no guarding and abdomen not rigid Skin: no rashes, warm and dry Neurologic: moves all extremities Psychiatric: A+Ox3, euthymic affect Genitourinary: normal external appearance Speculum/Bimanual Exam: normal appearance of the vagina and + abnormal vaginal discharge (white frothy discharge consistent with melo infection); no vaginal lesions and no vaginal bleeding no urethral bleeding on inspection Results & Data Results & Data ([facility]) Vital Signs (Past 12 Hours) Vital Signs Temp Pulse Resp BP Pulse Ox 07/21/21 07:48 36.6 C 71 18 112/71 98 07/21/21 07:06 59 L 18 98 Resident Activity Tracking Resident Involvement: Resident Care Provided Care Provided: Adult Hospital Medicine
[2021-07-21] MEDS ORDERED: POTASSIUM CHLORIDE CRTAB 20 MEQ TABCR PO ONE (14:22)
[2021-07-21] MEDS ORDERED: PIPERACILL/TAZOBAC CONSULT ACTIVE PRN (17:15)
[2021-07-21] MEDS ORDERED: PIPERACILLIN/TAZOBACTAM 4.5 GM in DEXTROSE 5% 100 ML IV ONE (17:30)
[2021-07-21] MEDS ORDERED: PIPERACILLIN/TAZOBACTAM 4.5 GM in DEXTROSE 5% 100 ML IV SCH (18:00)
[2021-07-21] MEDS: LUBIPROSTONE 8 MCG CAP PO SCH (21:08)
[2021-07-21] MEDS ORDERED: MoRPHine SULFATE 2 MG/ML CARP ONE (22:50)
[2021-07-22] MEDS: PIPERACILLIN/TAZOBACTAM 4.5 GM in DEXTROSE 5% 100 ML IV SCH ×4 (00:09→23:41)
[2021-07-22] MEDS: ONDANSETRON INJ 2 MG/ML 2 ML VIAL IV PRN ×2 (00:13→14:12)
[2021-07-22] MEDS: KETOROLAC TROMETHAMINE 15 MG/ML VIAL IV PRN ×3 (04:15→20:07)
[2021-07-22] MEDS: MoRPHine SULFATE 4 MG/ML 1 ML CARP\\VIAL IV PRN ×5 (04:16→23:05)
[2021-07-22] MEDS: AZITHROMYCIN 500 MG in DEXTROSE 5% 250 ML IV SCH (04:21)
[2021-07-22] MEDS: traMADol HCL 50 MG TABLET PO SCH ×3 (06:31→21:48)
[2021-07-22] MEDS: LEVOTHYROXINE SODIUM 25 MCG TABLET PO SCH (06:31)
[2021-07-22] MEDS: VANCOMYCIN HCL 1,500 MG in SODIUM CHLORIDE 0.9% 500 ML IV SCH (08:10)
[2021-07-22] MEDS: ENOXAPARIN INJ 40 MG/0.4 ML SYR SQ SCH ×2 (08:11→20:22)
[2021-07-22] MEDS: carvediloL 12.5 MG TAB PO SCH ×2 (08:12→20:21)
[2021-07-22] MEDS: FAMOTIDINE 20 MG TAB PO SCH ×2 (08:13→20:22)
[2021-07-22] MEDS: LINACLOTIDE 145 MCG CAPSULE PO SCH (08:13)
[2021-07-22] MEDS: METOPROLOL TARTRATE 50 MG TAB PO SCH (08:13)
[2021-07-22] MEDS: CHLORTHALIDONE 25 MG TAB PO SCH ×2 (08:14→08:22)
[2021-07-22] MEDS: SACCHAROMYCES BOULARDII 250 MG CAP PO SCH ×2 (08:14→20:22)
[2021-07-22] MEDS: LUBIPROSTONE 8 MCG CAP PO SCH ×2 (08:14→20:21)
[2021-07-22] MEDS: FLUoxetine HCL 20 MG CAP PO SCH (08:15)
[2021-07-22] MEDS: LOSARTAN POTASSIUM 50 MG TAB PO SCH (08:16)
[2021-07-22] MEDS: GABAPENTIN 300 MG CAP PO SCH ×3 (08:16→20:20)
[2021-07-22] MEDS: ALPRAZolam 0.5 MG TABLET PO PRN ×2 (08:18→20:19)
[2021-07-22] MEDS ORDERED: MoRPHine SULFATE 4 MG/ML 1 ML CARP\\VIAL IV PRN (08:41)
--- NOTE | 2021-07-22 09:01 | Pain Management Consultation ---
Date of Consultation July 22, 2021 Assessment & Plan (1) Pneumonia: Laterality: right Lung location: lower lobe of lung Pneumonia type: due to unspecified organism Qualified Code(s): J18.9 - Pneumonia, unspecified organism (2) Bacteremia: (3) Systemic lupus: (4) Chronic pain syndrome: (5) Fibromyalgia: * No interventional procedures to offer at this time. * We have discussed discharge goals as she would like to be discharged in the next day or two and she will limit the use of IV Morphine. I have changed the orders. Patient will try the oral Oxycodone 10mg x 4 hours if needed for pain. * Given significant history of opioid dependence the use of oral opioids should be only for a short period of time. * Continue IV Toradol during hospital stay for additional pain relief. * Thank you for the consultation. Please call with any questions or concerns. History of Present Illness Attending Physician: Barrett Balderas DO History of Present Illness This is a 40 year old female that has been most recently admitted to [facility] for bacteremia and right lower lobe pneumonia. She has been experiencing increased right flank pain. Patient does have a significant history of chronic pain syndrome, depression, fibromyalgia, gastroparesis, lupus, migraines, hypertension, pleuritis, pulmonary embolism, and frequent urinary tract infections. She describes a deep aching pain along the right f lank. If she does take in a deep breath it will shoot along the right chest. Patient has had multiple admissions over the last 3 years. She does have a history of opioid dependence which she states she discontinued approximately 5 years ago. She was on Suboxone until June 2020 and has been provided with intermittent opioids for acute issues. She did not find Tramadol and Oxycodone 5mg to be effective recently and vomiting from gastroparesis has also caused issues with keeping the medication down. She was trialed on MS IR 15mg twice daily which she did not find effective. Currently she is receiving Morphine 4mg IV x 3 hours with adequate pain relief. She states that last night she got a full nights sleep because the pain was no longer keeping her awake. She is aware that she cannot be discharged on IV medication and interested in taking an oral medication while the pneumonia resolves. Pain Assessment Full Body Front + Back: 1. Allergies Allergy/AdvReac Type Severity Reaction Status Date / Time dexamethasone Allergy Intermediate HIVES Verified 07/18/21 20:03 latex Allergy Intermediate HIVES Verified 07/18/21 20:03 pregabalin Allergy Intermediate FACE AND Verified 07/18/21 20:03 LIPS SWELLED Sulfa (Sulfonamide Allergy Intermediate LUPUS Verified 07/18/21 20:03 Antibiotics) FLARE UP morphine Allergy Mild local Verified 07/18/21 20:03 reaction at site duloxetine AdvReac Intermediate SEROTONIN Verified 07/18/21 20:03 SYNDROME escitalopram AdvReac Intermediate WENT CRAZY Verified 07/18/21 20:03 sertraline [From Zoloft] AdvReac Intermediate WENT CRAZY Verified 07/18/21 20:03 Home Medications Medication Instructions Recorded Confirmed Type levothyroxine 25 mcg tablet 25 mcg PO QAM 07/10/19 07/18/21 History gabapentin 300 mg capsule 900 mg PO TID #30 cap 08/30/20 07/18/21 Rx lubiprostone 24 mcg capsule 24 mcg PO BID 05/08/21 07/18/21 History (Amitiza) alprazolam 1 mg tablet 1 mg PO TID PRN 06/13/21 07/18/21 History baclofen 10 mg tablet 20 mg PO TID PRN tab 06/19/21 07/18/21 History carvedilol 12.5 mg tablet 12.5 mg PO BID 06/19/21 07/18/21 History chlorthalidone 25 mg tablet 25 mg PO QAM 06/19/21 07/18/21 History famotidine 20 mg tablet 20 mg PO BID 06/19/21 07/18/21 History linaclotide 290 mcg capsule 290 mcg PO QAM 06/19/21 07/18/21 History (Linzess) losartan 100 mg tablet 50 mg PO QAM tab 06/19/21 07/18/21 History clonidine HCl 0.1 mg tablet 0.1 mg PO DAILY PRN 07/12/21 07/18/21 History fluoxetine 20 mg capsule 40 mg PO QAM 07/12/21 07/18/21 History furosemide 20 mg tablet (Lasix) 20 mg PO QAM 07/12/21 07/18/21 History galcanezumab-gnlm 120 mg/mL 120 mg SUBCUT MO 07/12/21 07/18/21 History subcutaneous pen injector (Emgality Pen) metoprolol tartrate 50 mg tablet 50 mg PO QAM 07/12/21 07/18/21 History (Lopressor) oxycodone 5 mg tablet 5 mg PO Q8H PRN #20 tab 07/14/21 07/18/21 Rx tramadol 50 mg tablet 50 mg PO Q8H 14 Days #42 tab 07/14/21 07/18/21 Rx Saccharomyces boulardii 250 mg 250 mg PO BID #20 cap 07/17/21 07/18/21 Rx capsule (Florastor) azithromycin 250 mg tablet 250 mg PO DAILY 4 Days #4 tab 07/17/21 07/18/21 Rx cefdinir 300 mg capsule 300 mg PO BID 10 Days #20 cap 07/17/21 07/18/21 Rx cholecalciferol (vitamin D3) 50 0 mcg PO QAM 07/17/21 07/18/21 History mcg (2,000 unit) tablet (Vitamin D3) multivitamin 1 tab PO QAM 07/17/21 07/18/21 History ondansetron 4 mg disintegrating 4 mg PO Q6H PRN #14 tab 07/17/21 07/18/21 Rx tablet prednisone 20 mg tablet 60 mg PO DAILY 4 Days #12 tab 07/17/21 07/18/21 Rx Patient History Medical History Abdominal pain Acute confusion Anxiety Chest pain Chronic pain syndrome Confusion Dehydration Depression Fibromyalgia Gastritis Gastroparesis Headache History of kidney infection History of lupus anticoagulant disorder History of migraine History of multiple miscarriages History of ovarian cyst History of umbilical hernia Hypertension Hypertensive urgency Hypothyroidism Intractable epigastric abdominal pain Lupus nephritis Osteoarthritis Peptic ulcer disease Pleuritis (09/17/14) history of Poorly-controlled hypertension Post traumatic stress disorder Pulmonary embolism history of Urinary tract infection Surgical History H/O: hysterectomy History of tonsillectomy and adenoidectomy Hx of appendectomy Hx of cholecystectomy Port-A-Cath in place (08/29/20) Mediport Placement, Left Subclavian Vein Dr. 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 In no acute distress. HEAD/FACE: Normocephalic and atraumatic. EYES: No drainage or conjunctival injection. ENT: Nose without bleeding or discharge. Oral mucosa moist. NECK: Full ROM without apparent pain. No swelling or masses noted. RESPIRATORY: Patient with unlabored breathing. No signs of respiratory distress. CHEST/AXILLA: Chest movement symmetrical. No deformities noted. No increased pain with chest compression. ABDOMEN/GI: No distension. No CVA tenderness. BACK: Moves without difficulty SKIN: [place], warm and dry. No rash noted. MS/EXTREMITY: No swelling, no deformities. Moving extremities appropriately. NEURO: Alert and appears oriented. Speech is fluent. Cranial Nerves are grossly intact. PSYCH: Alert, pleasant, affect is calm Results (Pain Clinic) Diagnostic Review Radiology Findings: XR chest 2V PA/lateral CLINICAL HISTORY: Cough. COMPARISON STUDY: Chest CT July 17, 2021. Chest radiograph July 18, 2021. FINDINGS: Mild cardiomegaly is unchanged. There are trace bilateral pleural effusions. A round focus of suspected consolidation within the right lower lobe remains unchanged. There is no evidence for pulmonary edema. IMPRESSION: 1. No significant change in a round focus of suspected consolidation within the right lower lobe. This favors an infectious process. Radiographic follow-up is recommended to ensure resolution. 2. Trace bilateral pleural effusions. ACT 112: Negative or not required by law. Electronically signed by: Olegario Anderson M.D. 07/21/2021 11:51 AM
[2021-07-22 10:13] LABS: Basophils # (auto) 0.04 K/uL (0-0.2); Basophils % (auto) 0.6 %; Eosinophils # (auto) 0.15 K/uL (0-0.5); Eosinophils % (auto) 2.2 %; Hematocrit (blood only) 31.6 % (37-47); Hemoglobin 9.9 g/dL (12.0-16.0); Immature Granulocytes # (auto) 0.16 K/uL (0.00-0.02); Immature Granulocytes % (auto) 2.3 %; Lymphocytes # (auto) 2.36 K/uL (1.2-3.4); Lymphocytes % (auto) 34.4 %; Mean Corpuscular Hemoglobin 30.3 pg (25-34); Mean Corpuscular Hgb Conc 31.3 g/dL (32-36); Mean Corpuscular Volume 96.6 fL (80-100); Mean Platelet Volume 10.2 fL (7.4-10.4); Monocytes # (auto) 0.45 K/uL (0.11-0.59); Monocytes % (auto) 6.6 %; Neutrophils # (auto) 3.71 K/uL (1.4-6.5); Neutrophils % (auto) 53.9 %; Platelet Count 312 K/uL (130-400); RDW Coefficient of Variation 13.8 % (11.5-14.5); RDW Standard Deviation 48.6 fL (36.4-46.3); Red Blood Count 3.27 M/uL (4.2-5.4); White Blood Count 6.87 K/uL (4.8-10.8)
[2021-07-22 10:49] LABS: Albumin Level 2.4 gm/dl (3.4-5.0); BUN Creatinine Ratio 12.1 (10-20); Calcium 8.4 mg/dl (8.5-10.1); Creatinine Clr Calc Pharmacy 97.3 ml/min; Est GFR (African American) 84.7 ml/min; Est GFR (Non-African American) 73.1 ml/min; Potassium 3.6 mmol/L (3.5-5.1)
[2021-07-22 10:52] LABS: Albumin Globulin Ratio 0.6 (0.9-2); Bilirubin,Total 0.3 mg/dl (0.2-1); Globulin 4.1 gm/dl (2.5-4.0); Total Protein 6.5 gm/dl (6.4-8.2)
[2021-07-22] MEDS: oxyCODONE HCL IR 5 MG TAB (IMMEDIATE RELEASE) PO PRN ×2 (10:56→16:05)
[2021-07-22] MEDS: ALBUT/IPRATROP 3MG/0.5MG NEB 3 ML VIAL NEB PRN ×2 (11:47→17:33)
--- NOTE | 2021-07-22 18:31 | Hospitalist Progress Note ---
Date of Service July 22, 2021 Assessment & Plan (1) Bacteremia: Plan: 40-year-old female with a past medical history including hypertensive urgency/emergency, poorly controlled hypertension, peptic ulcer disease, systemic lupus, serositis, hypothyroidism, hematemesis, depression, lupus anticoagulant disorder, pulmonary embolism, and fibromyalgia presented to the ED for confirmed bacteremia. 1) Bacteremia - Initial BCx from 07/12 (one of two) were growing enterococcus faecalis, alpha strep, and coag neg staph - she was admitted that time for AMS but seemed to improve without intervention - do not see that she was discharged on any antibiotics but cx states verified on 07/17..so uncertain if this just populated?? She did present to the ED on 07/17 for pain and SOB and new cx obtained which again grew enterococcus faecalis and staph lugdunensis. -- She had her port removed on 07/19 - which is growing enterococcus and a gram neg bacilli that is rare so probably too small to further identify and appears was the source of the bacteremia - Repeat BCx from 07/21 currently with NGTD -- Repeat Cx without growth so low suspicion for endocarditis but may consider CELIO -- Last echo - 17 May - EF 60-65%, no regional wall motion abnormalities; mild LVH (admission in Apr 2021 - suspected Takotsubo syndrome/stress cardiomyopathy at that time) - Mild leukocytosis on admission at 11.2 which is resolved; remains afebrile - Neg MRSA nasal swab and will hold vancomycin at this time; Continue Zithro and Zosyn at this time - Request ID consultation - suspect may need IV Abx on discharge but appreciate input 2) Pneumonia -Discharged home (07/17) for outpatient management with cefdinir and azithromycin; and prednisone -CT chest (07/17): focal consolidation right lower lung, few additional scattered nodular densities within the right lower lobe and left lung, trace bilateral effusions -- Incidental finding of a 1.9 cm focal irregular density within the upper outer quadrant R breast - follow-up non-emergent mammogram/ultrasound - will discuss with patient so she is aware - breast imaging is done as outpatient setting -Repeat chest XR (07/21): No significant change in a round focus of suspected consolidation within the right lower lobe, likely infectious, f/u XR for resolution recommended -WBC 11.2 on admission now resolved, lactate WNL, procal 0.52 (mildly elevated - Abx as above - Urine legionella pending 3) Chronic pain - Suspect trigger point related vs visceral hypersensitivity -Sent home with 2 weeks worth of scheduled tramadol and as needed oxycodone for breakthrough pain on 07/14 -- Reports she is involved with organization given her psychiatric history and awaiting to get into their pain management clinic but has missed appointments due to hospitalization -chronic pain due to rheumatologic disease, fibromyalgia, and anxiety; concern for growing opioid dependence and tolerance -Morphine IV helps - attempted oral options which worked in the morning but not as the day progressed - will allow IV dosing and hold oral options for now and if doing better tomorrow can re-attempt conversion to orals as she reports Tramadol and Oxy tends to help her -Continue Toradol 15mg IV q6h PRN -pain management consulted - appreciated recommendations; will hold today given worsening pain this afternoon but will trial again tomorrow -monitor kidney function 4) Elevated LFTs - Bumped on AM labs - possibly from medications? Lupus? -- Did have a dose of diflucan - will monitor with AM labs -h/o cholecystectomy -ddx hepatitis vs hepatocellular injury vs biliary obstruction -(07/22): AST 70, ALT 110, ALP 275 -RUQ US: no biliary duct dilation, exam compromised by suboptimal penetration, partially obscured pancreas -trend CMP, GGT pending 5) Candiduria -Urine culture grew melo (07/18) -complains of vaginal sensitivity during examination --speculum examination: white frothy vaginal discharge -Diflucan 150mg PO x1 6) Pelvic bleeding -overnight mild pelvic bleeding found when wiping -Hgb 9.9 and stable -h/o hysterectomy ~8 years ago -ddx vaginal bleeding versus urethral bleeding - maybe some irritation given melo - seems mostly with wiping -speculum examination performed on 07/21 shows no signs of bleeding -cont. to monitor 7) Chest pain - presenting with chronic, expanding chest pain - Takotsubo cardiomyopathy at 04/2021 admission, repeat echo during 05/2021 admission showed return of normal EF - 05/09/21 cardiac cath did not show any evidence of CAD - ddx visceral hypersensitivity contributes to her abdominal pain, trigger points, costochondritis -- Consideration for CELIO? - EKG: NSR, no ST segment changes, prolonged QT 8) Systemic lupus -multisystem hx including recurrent miscarriages, HTN, perhaps related to SLE. -outpt f/u; has apt 09/2021 to get new establishment with Rheumatology - was on Plaquenil in the past but unable to tolerate 9) Poorly-controlled hypertension (seems to be improving this admission) -Cont. home chlorthalidone 25 mg daily, losartan 50 mg daily, carvedilol 12.5 mg BID, and metoprolol 50 mg daily -- Will verify with patient she is on two beta blockers as previous discharges does not seem to show this - but she is a [facility] patient so maybe adjusted as outpatient? -cont. home clonidine PRN 10) Gastroparesis -cont. home famotidine, Amitiza, and linzess 11) Hypothyroid: -cont. home levothyroxine 12) Depression and anxiety -Cont. home fluoxetine and Xanax 13) Fibromyalgia: -cont. home Gabapentin, baclofen 14) diarrhea, resolved -complained of nonodorous diarrhea - possibly related to Abx -c. diff negative Plan: - Appreciate ID consultation and will need to make sure IV access; will discuss with surgery but would anticipate needing full treatment of bacteremia before port placement and likely can be done as outpatient Admission and Anticipated Discharge Date Admission Date: July 18, 2021 Subjective Patient seen twice today. This AM pain was much better controlled and was optimistic that the recommendations would work as she has had good response with this regimen in the past. However, this afternoon pain was worsened. Will continue IV dosing for now and will see about converting tomorrow. She is not sure if the antibiotics are causing some irritation for her as well. She does report being sensitive to new medications. She is tolerating a diet just not much of an appetite. She reports overall just feeling run down from multiple admissions. She is eager to get out of the hospital. She endorses that she has a hard time with IV access and now has her port removed so will need to coordinate for replacement but anticipate needing to fully treat bacteremia before placement of port. She remains on RA and reports improvement with breathing treatments. Review of Systems Review of Systems: All systems reviewed & are unremarkable except as noted in Subjective Physical Exam Physical Exam: PHYSICAL EXAM General Appearance: WDWN in NAD who is A&O x 3 HEENT: Head is normocephalic/atraumatic; Hearing grossly intact; Mucous m embranes moist; Pharynx negative for exudate/lesions Neck: Supple; Trachea midline; Neg JVD; Neg lymphadenopathy Heart: RRR with no M/G/R Lungs: CTA in all lung duarte bilaterally slightly diminished at bases; Respirations unlabored; Neg accessory muscle use Abdomen: Soft, non-tender, non-distended; Positive BS x 4 quadrants Extremities: Neg cyanosis or edema Neurological: Speech clear; Gross motor/sensory function intact; Neg focal neurologic deficits Psychiatric: Appropriate mood/affect Skin: Normal Color; Warm/Dry Results & Data Results & Data ([facility]) Vital Signs (Past 12 Hours) Vital Signs Temp Pulse Pulse Resp BP Pulse Ox 07/22/21 17:34 77 20 98 07/22/21 15:29 36.6 C 64 18 91/54 L 91 07/22/21 11:47 16 97 07/22/21 10:53 37.2 C 52 L 99 07/22/21 07:59 50 L 110/68 PG Care Time/CCT Total # of Minutes Spent Total Time Spent with Patient: Total time spent is greater than 50% in coordination of care (as documented) at patient's floor/unit and/or counseling patient: Coding Level of Care Code 57061 Subseq Hosp Care Lvl 3 Diagnoses Bacteremia R78.81
[2021-07-23] MEDS: MoRPHine SULFATE 4 MG/ML 1 ML CARP\\VIAL IV PRN ×7 (03:57→22:43)
[2021-07-23] MEDS: KETOROLAC TROMETHAMINE 15 MG/ML VIAL IV PRN ×4 (03:57→22:44)
[2021-07-23] MEDS: AZITHROMYCIN 500 MG in DEXTROSE 5% 250 ML IV SCH (04:38)
[2021-07-23] MEDS: ONDANSETRON INJ 2 MG/ML 2 ML VIAL IV PRN ×3 (04:44→22:49)
[2021-07-23] MEDS: traMADol HCL 50 MG TABLET PO SCH ×3 (06:32→22:48)
[2021-07-23] MEDS: LEVOTHYROXINE SODIUM 25 MCG TABLET PO SCH (06:32)
[2021-07-23] MEDS ORDERED: VANCOMYCIN TROUGH ONE ×2 (07:30→08:30)
[2021-07-23 09:43] LABS: Basophils # (auto) 0.03 K/uL (0-0.2); Basophils % (auto) 0.4 %; Eosinophils # (auto) 0.23 K/uL (0-0.5); Hematocrit (blood only) 34.9 % (37-47); Hemoglobin 11.2 g/dL (12.0-16.0); Immature Granulocytes # (auto) 0.18 K/uL (0.00-0.02); Immature Granulocytes % (auto) 2.4 %; Mean Corpuscular Hemoglobin 30.4 pg (25-34); Mean Corpuscular Hgb Conc 32.1 g/dL (32-36); Mean Corpuscular Volume 94.6 fL (80-100); Mean Platelet Volume 10.1 fL (7.4-10.4); Monocytes # (auto) 0.34 K/uL (0.11-0.59); Monocytes % (auto) 4.5 %; Neutrophils % (auto) 56.7 %; Platelet Count 340 K/uL (130-400); RDW Coefficient of Variation 13.7 % (11.5-14.5); RDW Standard Deviation 47.1 fL (36.4-46.3); Red Blood Count 3.69 M/uL (4.2-5.4); White Blood Count 7.58 K/uL (4.8-10.8)
[2021-07-23] MEDS: PIPERACILLIN/TAZOBACTAM 4.5 GM in DEXTROSE 5% 100 ML IV SCH (09:58)
[2021-07-23] MEDS: SACCHAROMYCES BOULARDII 250 MG CAP PO SCH ×2 (10:08→20:40)
[2021-07-23] MEDS: GABAPENTIN 300 MG CAP PO SCH ×3 (10:09→20:39)
[2021-07-23] MEDS: LUBIPROSTONE 8 MCG CAP PO SCH ×3 (10:09→20:39)
[2021-07-23 10:10] LABS: Albumin Level 2.5 gm/dl (3.4-5.0); BUN Creatinine Ratio 11.3 (10-20); Calcium 8.6 mg/dl (8.5-10.1); Creatinine Clr Calc Pharmacy 100.4 ml/min; Est GFR (Non-African American) 75.9 ml/min; Potassium 4.1 mmol/L (3.5-5.1)
[2021-07-23] MEDS: FLUoxetine HCL 20 MG CAP PO SCH (10:10)
[2021-07-23] MEDS: FAMOTIDINE 20 MG TAB PO SCH ×2 (10:11→21:03)
[2021-07-23] MEDS: LINACLOTIDE 145 MCG CAPSULE PO SCH ×2 (10:12→10:40)
[2021-07-23 10:13] LABS: Albumin Globulin Ratio 0.6 (0.9-2); Bilirubin,Total 0.4 mg/dl (0.2-1); Globulin 4.4 gm/dl (2.5-4.0); Total Protein 6.9 gm/dl (6.4-8.2)
[2021-07-23] MEDS: ENOXAPARIN INJ 40 MG/0.4 ML SYR SQ SCH ×2 (10:13→20:37)
[2021-07-23] MEDS: carvediloL 12.5 MG TAB PO SCH ×2 (10:18→20:43)
[2021-07-23] MEDS: CHLORTHALIDONE 25 MG TAB PO SCH (10:19)
[2021-07-23] MEDS: LOSARTAN POTASSIUM 50 MG TAB PO SCH (10:19)
[2021-07-23] MEDS: METOPROLOL TARTRATE 50 MG TAB PO SCH (10:20)
[2021-07-23] MEDS: AMPICILLIN/SULBACTAM SOD 3,000 MG in 0.9 % SODIUM CHLORIDE 100 ML IV SCH ×3 (10:36→22:44)
[2021-07-23] MEDS ORDERED: SODIUM CHLORIDE 0.9% 1000ML 1,000 ML IV SCH (10:45)
[2021-07-23] MEDS ORDERED: methylPREDNISolone 40 MG in SYRINGE 0 ML IV ONE (10:45)
--- NOTE | 2021-07-23 20:03 | Hospitalist Progress Note ---
Date of Service July 23, 2021 Assessment & Plan (1) Bacteremia: Plan: 40-year-old female with a past medical history including hypertensive urgency/emergency, poorly controlled hypertension, peptic ulcer disease, systemic lupus, serositis, hypothyroidism, hematemesis, depression, lupus anticoagulant disorder, pulmonary embolism, and fibromyalgia presented to the ED for confirmed bacteremia. 1) Bacteremia - Initial BCx from 07/12 (one of two) were growing enterococcus faecalis, alpha strep, and coag neg staph - she was admitted that time for AMS but seemed to improve without intervention - do not see that she was discharged on any antibiotics but cx states verified on 07/17..so uncertain if this just populated?? She did present to the ED on 07/17 for pain and SOB and new cx obtained which again grew enterococcus faecalis and staph lugdunensis. -- She had her port removed on 07/19 - which is growing enterococcus and atinetobacter lwoffii and appears was the source of the bacteremia - Repeat BCx from 07/21 currently with NGTD -- Repeat Cx without growth so low suspicion for endocarditis but may consider CELIO - patient reports she did have endocarditis in the past -- Last echo - 17 May - EF 60-65%, no regional wall motion abnormalities; mild LVH (admission in Apr 2021 - suspected Takotsubo syndrome/stress cardiomyopathy at that time) - Mild leukocytosis on admission at 11.2 which is resolved; remains afebrile - Changed to Unasyn at this time - ID consultation completed -- Recommending Sputum Cx (ordered), Legionella already ordered but pending, echo, U/S port site to assess for any abscess; hepatitis panel; HIV/syphilis; Rheumatology consult (unable to perform here but she has an outpatient appt in September); consider GI consult given intermittent liver bumps - Consult Cardiology - assess ability to perform CELIO - Will also discuss with Gen Surg about consideration for port placement however they may be hesitant given active treatment or bacteremia but patient does have poor venous access. Best option may be to utilize PICC line as this can be more easily removed and temporary 2) Pneumonia -Discharged home (07/17) for outpatient management with cefdinir and azithromycin; and prednisone -CT chest (07/17): focal consolidation right lower lung, few additional scattered nodular densities within the right lower lobe and left lung, trace bilateral effusions -- Incidental finding of a 1.9 cm focal irregular density within the upper outer quadrant R breast - follow-up non-emergent mammogram/ultrasound - discussed with patient so she is aware - breast imaging is done as outpatient setting due to breast imaging and will assist with arrangement -Repeat chest XR (07/21): No significant change in a round focus of suspected consolidation within the right lower lobe, likely infectious, f/u XR for resolution recommended -WBC 11.2 on admission now resolved, lactate WNL, procal 0.52 (mildly elevated) - Abx as above - Urine legionella pending 3) Chronic pain - Suspect trigger point related vs visceral hypersensitivity -Sent home with 2 weeks worth of scheduled tramadol and as needed oxycodone for breakthrough pain on 07/14 -- Reports she is involved with organization given her psychiatric history and awaiting to get into their pain management clinic but has missed appointments due to hospitalization -chronic pain due to rheumatologic disease, fibromyalgia, and anxiety; concern for growing opioid dependence and tolerance -Morphine IV helps - attempted oral options which worked in the morning but not as the day progressed on 07/22 - will allow IV dosing and hold oral options for now and if doing better tomorrow can re-attempt conversion to orals as she reports Tramadol and Oxy tends to help her - Methylprednisolone 40 mg IV daily x 3 doses - seems to help -Continue Toradol 15mg IV q6h PRN -pain management consulted - appreciated recommendations; will hold today given worsening pain this afternoon but will trial again tomorrow -monitor kidney function 4) Elevated LFTs - Fluctuates - currently normal- possibly from medications? Lupus? -- Has had work-up previously for this - can discuss with GI - previously seen by [facility] -- Did have a dose of diflucan - Due to poor venous access requesting holding labs until line obtained and seems reasonable -h/o cholecystectomy -ddx hepatitis vs hepatocellular injury vs biliary obstruction -(07/22): AST 70, ALT 110, ALP 275 -RUQ US: no biliary duct dilation, exam compromised by suboptimal penetration, partially obscured pancreas -trend CMP, GGT at 197 5) Candiduria -Urine culture grew melo (07/18) -complains of vaginal sensitivity during examination --speculum examination: white frothy vaginal discharge -Diflucan 150mg PO x1 completed 6) Pelvic bleeding -overnight mild pelvic bleeding found when wiping -Hgb 9.9 and stable -h/o hysterectomy ~8 years ago -ddx vaginal bleeding versus urethral bleeding - maybe some irritation given melo - seems mostly with wiping -speculum examination performed on 07/21 shows no signs of bleeding -cont. to monitor 7) Chest pain - presenting with chronic, expanding chest pain - Takotsubo cardiomyopathy at 04/2021 admission, repeat echo during 05/2021 admission showed return of normal EF - 05/09/21 cardiac cath did not show any evidence of CAD - ddx visceral hypersensitivity contributes to her abdominal pain, trigger points, costochondritis -- Consideration for CELIO? - EKG: NSR, no ST segment changes, prolonged QT 8) Systemic lupus -multisystem hx including recurrent miscarriages, HTN, perhaps related to SLE. -outpt f/u; has apt 09/2021 to get new establishment with Rheumatology - was on Plaquenil in the past but unable to tolerate 9) Poorly-controlled hypertension (seems to be improving this admission) -Cont. home chlorthalidone 25 mg daily, losartan 50 mg daily, carvedilol 12.5 mg BID, and metoprolol 50 mg daily -- Verified with patient she is on two beta blockers as previous discharges does not seem to show this - but she is a [facility] patient so maybe adjusted as outpatient? -cont. home clonidine PRN 10) Gastroparesis -cont. home famotidine, Amitiza, and linzess 11) Hypothyroid: -cont. home levothyroxine 12) Depression and anxiety -Cont. home fluoxetine and Xanax 13) Fibromyalgia: -cont. home Gabapentin, baclofen 14) diarrhea, resolved -complained of nonodorous diarrhea - possibly related to Abx -c. diff negative Plan: - Appreciate ID consultation and will need to make sure IV access; will discuss with surgery but would anticipate needing full treatment of bacteremia before port placement and likely can be done as outpatient - Will need infusion company set up Admission and Anticipated Discharge Date Admission Date: July 18, 2021 Subjective Seen on multiple visits today. Was having a lot of discomfort this morning but seemed to be more comfortable this afternoon. Given Methylprednisolone which seemed to help with her facial rash as well. Completed ID consultation and dis cussed recommendations. Current recommendations are for IV Abx. New Cx currently NGTD. Physical Exam Physical Exam: PHYSICAL EXAM General Appearance: WDWN in NAD who is A&O x 3 HEENT: Head is normocephalic/atraumatic; Hearing grossly intact; Mucous membranes moist; Pharynx negative for exudate/lesions Neck: Supple; Trachea midline; Neg JVD; Neg lymphadenopathy Heart: RRR with no M/G/R Lungs: CTA in all lung duarte bilaterally slightly diminished at bases; Respirations unlabored; Neg accessory muscle use Abdomen: Soft, non-tender, non-distended; Positive BS x 4 quadrants Extremities: Neg cyanosis or edema Neurological: Speech clear; Gross motor/sensory function intact; Neg focal neurologic deficits Psychiatric: Appropriate mood/affect Skin: Normal Color; Warm/Dry Results & Data Results & Data ([facility]) Vital Signs (Past 12 Hours) Vital Signs Temp Pulse Pulse Resp BP Pulse Ox 07/23/21 16:15 36.8 C 59 L 16 121/75 95 07/23/21 10:05 72 116/74 PG Care Time/CCT Total # of Minutes Spent Total Time Spent with Patient: Total time spent is greater than 50% in coordination of care (as documented) at patient's floor/unit and/or counseling patient: Coding Level of Care Code 59675 Subseq Hosp Care Lvl 3 Diagnoses Bacteremia R78.81
[2021-07-23] MEDS: ALPRAZolam 0.5 MG TABLET PO PRN (20:37)
[2021-07-24] MEDS: MoRPHine SULFATE 4 MG/ML 1 ML CARP\\VIAL IV PRN ×4 (01:44→19:50)
[2021-07-24] MEDS: AMPICILLIN/SULBACTAM SOD 3,000 MG in 0.9 % SODIUM CHLORIDE 100 ML IV SCH ×4 (04:49→21:31)
[2021-07-24] MEDS: LEVOTHYROXINE SODIUM 25 MCG TABLET PO SCH (05:30)
[2021-07-24] MEDS: traMADol HCL 50 MG TABLET PO SCH ×3 (05:30→21:21)
[2021-07-24] MEDS: ONDANSETRON INJ 2 MG/ML 2 ML VIAL IV PRN ×3 (05:30→21:31)
[2021-07-24] MEDS: carvediloL 12.5 MG TAB PO SCH ×2 (08:07→21:17)
[2021-07-24] MEDS: ALPRAZolam 0.5 MG TABLET PO PRN ×3 (08:14→21:20)
[2021-07-24] MEDS: ENOXAPARIN INJ 40 MG/0.4 ML SYR SQ SCH ×2 (08:14→21:17)
[2021-07-24] MEDS: CHLORTHALIDONE 25 MG TAB PO SCH (08:14)
[2021-07-24] MEDS: LOSARTAN POTASSIUM 50 MG TAB PO SCH (08:14)
[2021-07-24] MEDS: FLUoxetine HCL 20 MG CAP PO SCH (08:14)
[2021-07-24] MEDS: GABAPENTIN 300 MG CAP PO SCH ×3 (08:14→21:18)
[2021-07-24] MEDS: METOPROLOL TARTRATE 50 MG TAB PO SCH (08:15)
[2021-07-24] MEDS: methylPREDNISolone 40 MG in SYRINGE 0 ML IV SCH (08:15)
[2021-07-24] MEDS: LUBIPROSTONE 8 MCG CAP PO SCH ×2 (08:15→21:19)
[2021-07-24] MEDS: FAMOTIDINE 20 MG TAB PO SCH ×2 (08:15→21:18)
[2021-07-24] MEDS: LINACLOTIDE 145 MCG CAPSULE PO SCH (08:15)
[2021-07-24] MEDS: SACCHAROMYCES BOULARDII 250 MG CAP PO SCH ×2 (08:16→21:20)
[2021-07-24] MEDS: oxyCODONE HCL IR 5 MG TAB (IMMEDIATE RELEASE) PO PRN ×3 (10:57→21:21)
[2021-07-24] MEDS: FUROSEMIDE 20 MG TAB PO SCH (11:40)
--- NOTE | 2021-07-24 13:59 | XCELERA ---
[id number]
--- NOTE | 2021-07-24 19:36 | Hospitalist Progress Note ---
Date of Service July 24, 2021 Assessment & Plan (1) Bacteremia: Plan: 40-year-old female with a past medical history including hypertensive urgency/emergency, poorly controlled hypertension, peptic ulcer disease, systemic lupus, serositis, hypothyroidism, hematemesis, depression, lupus anticoagulant disorder, pulmonary embolism, and fibromyalgia presented to the ED for confirmed bacteremia. 1) Bacteremia - Initial BCx from 07/12 (one of two) were growing enterococcus faecalis, alpha strep, and coag neg staph - she was admitted that time for AMS but seemed to improve without intervention - do not see that she was discharged on any antibiotics but cx states verified on 07/17..so uncertain if this just populated?? She did present to the ED on 07/17 for pain and SOB and new cx obtained which again grew enterococcus faecalis and staph lugdunensis. -- She had her port removed on 07/19 - which is growing enterococcus and atinetobacter lwoffii and appears was the source of the bacteremia - Repeat BCx from 07/21 currently with NGTD -- Repeat Cx without growth so low suspicion for endocarditis but may consider CELIO - patient reports she did have endocarditis in the past -- Transthoracic echo this admission - EF 60-65%; no regional wall motion abnormalities; no valvular pathology; no vegetation -- Last echo - 17 May - EF 60-65%, no regional wall motion abnormalities; mild LVH (admission in Apr 2021 - suspected Takotsubo syndrome/stress cardiomyopathy at that time) - Mild leukocytosis on admission at 11.2 which is resolved; remains afebrile - Changed to Unasyn at this time - ID consultation completed -- Recommending Sputum Cx (ordered), Legionella negative, echo, U/S port site to assess for any abscess; hepatitis panel; HIV/syphilis; Rheumatology consult (unable to perform here but she has an outpatient appt in September); consider GI consult given intermittent liver bumps - Consult Cardiology - assess ability to perform CELIO - Will utilize PICC line at this time given active treatment for bacteremia - will place for U/S of port area for any new development of abscess to help determine length of Abx - Awaiting an infusion company to be able to supply needs. 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 and suspect she will be able to handle Abx at home easily given her background - possibly can start over the weekend 2) Pneumonia -Discharged home (07/17) for outpatient management with cefdinir and azithromycin; and prednisone -CT chest (07/17): focal consolidation right lower lung, few additional scattered nodular densities within the right lower lobe and left lung, trace bilateral effusions -- Incidental finding of a 1.9 cm focal irregular density within the upper outer quadrant R breast - follow-up non-emergent mammogram/ultrasound - discussed with patient so she is aware - breast imaging is done as outpatient setting due to breast imaging and will assist with arrangement -Repeat chest XR (07/21): No significant change in a round focus of suspected consolidation within the right lower lobe, likely infectious, f/u XR for resolution recommended -WBC 11.2 on admission now resolved, lactate WNL, procal 0.52 (mildly elevated) - Abx as above - Urine legionella negative - Repeat procalcitonin in AM 3) Chronic pain - Suspect trigger point related vs visceral hypersensitivity -Sent home with 2 weeks worth of scheduled tramadol and as needed oxycodone for breakthrough pain on 07/14 -- Reports she is involved with organization given her psychiatric history and awaiting to get into their pain management clinic but has missed appointments due to hospitalization -chronic pain due to rheumatologic disease, fibromyalgia, and anxiety; concern for growing opioid dependence and tolerance -Attempting more oral options to help with transition home - Methylprednisolone 40 mg IV daily x 3 doses - seems to help -- Can also prescribe methylprednisolone orally to help with infusions when at home -Hold Toradol right now as she had multiple doses during this stay and while using steroids -pain management consulted - appreciated recommendations -monitor kidney function 4) Elevated LFTs - Fluctuates - currently normal- possibly from medications? Lupus? -- Has had work-up previously for this - can discuss with GI - previously seen by [facility] -- Did have a dose of diflucan - Labs in AM -h/o cholecystectomy -ddx hepatitis vs hepatocellular injury vs biliary obstruction -(07/22): AST 70, ALT 110, ALP 275 -RUQ US: no biliary duct dilation, exam compromised by suboptimal penetration, partially obscured pancreas -trend CMP, GGT at 197 5) Candiduria -Urine culture grew melo (07/18) -complains of vaginal sensitivity during examination --speculum examination: white frothy vaginal discharge -Diflucan 150mg PO x1 completed 6) Pelvic bleeding -Hgb 9.9 and stable -h/o hysterectomy ~8 years ago -ddx vaginal bleeding versus urethral bleeding - maybe some irritation given melo - seems mostly with wiping -speculum examination performed on 07/21 shows no signs of bleeding -cont. to monitor 7) Chest pain - presenting with chronic, expanding chest pain - Takotsubo cardiomyopathy at 04/2021 admission, repeat echo during 05/2021 admission showed return of normal EF - 05/09/21 cardiac cath did not show any evidence of CAD - ddx visceral hypersensitivity contributes to her abdominal pain, trigger points, costochondritis -- Consideration for CELIO? - EKG: NSR, no ST segment changes, prolonged QT 8) Systemic lupus -multisystem hx including recurrent miscarriages, HTN, perhaps related to SLE. -outpt f/u; has apt 09/2021 to get new establishment with Rheumatology - was on Plaquenil in the past but unable to tolerate 9) Poorly-controlled hypertension (seems to be improving this admission) -Cont. home chlorthalidone 25 mg daily, losartan 50 mg daily, carvedilol 12.5 mg BID, and metoprolol 50 mg daily -- Verified with patient she is on two beta blockers as previous discharges does not seem to show this - but she is a [facility] patient so maybe adjusted as outpatient? -cont. home clonidine PRN 10) Gastroparesis -cont. home famotidine, Amitiza, and linzess 11) Hypothyroid: -cont. home levothyroxine 12) Depression and anxiety -Cont. home fluoxetine and Xanax 13) Fibromyalgia: -cont. home Gabapentin, baclofen 14) diarrhea, resolved -complained of nonodorous diarrhea - possibly related to Abx -c. diff negative Plan: - Appreciate ID consultation - Will need infusion company set up - will send Rx for Abx Admission and Anticipated Discharge Date Admission Date: July 18, 2021 Subjective Reports ongoing diffuse pain. Reporting the oral pain medication is helping some when taken before the antibiotic. Also utilizing Methylprednisolone to see if this helps some inflammatory pain. She had a PICC line placed this afternoon as BCx have remained NGTD. She had a transthoracic echo with no signs of vegetation. Will discuss need for CELIO with cardiology. Was having some itching at port site and dressing removed and incision looks great with suture in place and well-approximated incision. Still awaiting IV infusion company for home use Review of Systems Review of Systems: All systems reviewed & are unremarkable except as noted in Subjective Physical Exam Physical Exam: PHYSICAL EXAM General Appearance: WDWN in NAD who is A&O x 3 HEENT: Head is normocephalic/atraumatic; Hearing grossly intact Neck: Supple; Trachea midline; Neg JVD Heart: RRR with no M/G/R Lungs: CTA in all lung duarte bilaterally slightly diminished at bases; Respirations unlabored Abdomen: Soft, non-tender, non-distended; Positive BS x 4 quadrants Extremities: Neg cyanosis or edema Neurological: Speech clear; Gross motor/sensory function intact; Neg focal neurologic deficits Psychiatric: Appropriate mood/affect Skin: Normal Color; Warm/Dry; port incision well approximated with suture in place Results & Data Results & Data ([facility]) Vital Signs (Past 12 Hours) Vital Signs Temp Pulse Pulse Resp BP BP Pulse Ox 07/24/21 15:37 37.0 C 58 L 16 146/88 H 96 07/24/21 08:07 56 L 07/24/21 07:30 36.6 C 58 L 16 148/83 H 97 PG Care Time/CCT Total # of Minutes Spent Total Time Spent with Patient: Total time spent is greater than 50% in coordination of care (as documented) at patient's floor/unit and/or counseling patient: Coding Level of Care Code 08186 Subseq Hosp Care Lvl 3 Diagnoses Bacteremia R78.81
[2021-07-25] MEDS: MoRPHine SULFATE 4 MG/ML 1 ML CARP\\VIAL IV PRN ×5 (00:08→23:04)
[2021-07-25] MEDS: oxyCODONE HCL IR 5 MG TAB (IMMEDIATE RELEASE) PO PRN ×4 (02:50→21:24)
[2021-07-25] MEDS: AMPICILLIN/SULBACTAM SOD 3,000 MG in 0.9 % SODIUM CHLORIDE 100 ML IV SCH ×4 (04:48→22:09)
[2021-07-25] MEDS: traMADol HCL 50 MG TABLET PO SCH ×2 (05:34→14:16)
[2021-07-25] MEDS: ONDANSETRON INJ 2 MG/ML 2 ML VIAL IV PRN ×3 (05:35→21:24)
[2021-07-25] MEDS: LEVOTHYROXINE SODIUM 25 MCG TABLET PO SCH (05:41)
[2021-07-25 07:14] LABS: Hematocrit (blood only) 35.6 % (37-47); Hemoglobin 11.4 g/dL (12.0-16.0); Mean Corpuscular Hemoglobin 30.4 pg (25-34); Mean Corpuscular Volume 94.9 fL (80-100); Mean Platelet Volume 9.8 fL (7.4-10.4); Platelet Count 334 K/uL (130-400); RDW Coefficient of Variation 13.5 % (11.5-14.5); RDW Standard Deviation 46.5 fL (36.4-46.3); Red Blood Count 3.75 M/uL (4.2-5.4); White Blood Count 11.67 K/uL (4.8-10.8)
[2021-07-25] MEDS: FAMOTIDINE 20 MG TAB PO SCH ×2 (07:36→21:14)
[2021-07-25] MEDS: FUROSEMIDE 20 MG TAB PO SCH (07:36)
[2021-07-25] MEDS: FLUoxetine HCL 20 MG CAP PO SCH (07:36)
[2021-07-25] MEDS: carvediloL 12.5 MG TAB PO SCH ×2 (07:36→21:14)
[2021-07-25] MEDS: ALPRAZolam 0.5 MG TABLET PO PRN ×3 (07:36→23:41)
[2021-07-25] MEDS: METOPROLOL TARTRATE 50 MG TAB PO SCH (07:37)
[2021-07-25] MEDS: LUBIPROSTONE 8 MCG CAP PO SCH ×2 (07:37→21:15)
[2021-07-25] MEDS: LINACLOTIDE 145 MCG CAPSULE PO SCH (07:37)
[2021-07-25] MEDS: CHLORTHALIDONE 25 MG TAB PO SCH (07:37)
[2021-07-25] MEDS: LOSARTAN POTASSIUM 50 MG TAB PO SCH (07:37)
[2021-07-25] MEDS: SACCHAROMYCES BOULARDII 250 MG CAP PO SCH ×2 (07:37→21:15)
[2021-07-25] MEDS: methylPREDNISolone 40 MG in SYRINGE 0 ML IV SCH (07:38)
[2021-07-25] MEDS: ENOXAPARIN INJ 40 MG/0.4 ML SYR SQ SCH ×2 (07:38→21:14)
[2021-07-25] MEDS: GABAPENTIN 300 MG CAP PO SCH ×3 (07:38→22:09)
[2021-07-25 07:47] LABS: Albumin Level 2.8 gm/dl (3.4-5.0); Calcium 9.2 mg/dl (8.5-10.1); Creatinine Clr Calc Pharmacy 103.7 ml/min; Est GFR (African American) 91.5 ml/min; Est GFR (Non-African American) 78.9 ml/min; Potassium 3.8 mmol/L (3.5-5.1)
[2021-07-25 07:50] LABS: Albumin Globulin Ratio 0.6 (0.9-2); Bilirubin,Total 0.3 mg/dl (0.2-1); Globulin 4.4 gm/dl (2.5-4.0); Total Protein 7.2 gm/dl (6.4-8.2)
[2021-07-25 16:25] LABS: Hepatitis B Surf Ag Rflx Conf Neg (Neg)
[2021-07-25] MEDS ORDERED: KETOROLAC 30 MG/ML VIAL IV ONE (16:51)
[2021-07-25 16:53] LABS: Hepatitis C IgG 13Yrs+Old_Rflx Neg (Neg)
--- NOTE | 2021-07-25 19:15 | Hospitalist Progress Note ---
Date of Service July 25, 2021 Assessment & Plan (1) Bacteremia: Plan: 40-year-old female with a past medical history including hypertensive urgency/emergency, poorly controlled hypertension, peptic ulcer disease, systemic lupus, serositis, hypothyroidism, hematemesis, depression, lupus anticoagulant disorder, pulmonary embolism, and fibromyalgia presented to the ED for confirmed bacteremia. 1) Bacteremia - Initial BCx from 07/12 (one of two) were growing enterococcus faecalis, alpha strep, and coag neg staph - she was admitted that time for AMS but seemed to improve without intervention - do not see that she was discharged on any antibiotics but cx states verified on 07/17..so uncertain if this just populated?? She did present to the ED on 07/17 for pain and SOB and new cx obtained which again grew enterococcus faecalis and staph lugdunensis. -- She had her port removed on 07/19 - which is growing enterococcus and atinetobacter lwoffii and appears was the source of the bacteremia -- Gen Surg to stop by tomorrow for wound check - due to itching dressing was removed the other day with incision looking well and new dressing applied - Repeat BCx from 07/21 currently with NGTD -- Repeat Cx without growth so low suspicion for endocarditis -- Discussed with cardiology who recommended initial transthoracic echo. No plans for CELIO at this time but could consider repeat Echo as outpatient to have an additional look -- Transthoracic echo this admission - EF 60-65%; no regional wall motion abnormalities; no valvular pathology; no vegetation -- Last echo - 17 May - EF 60-65%, no regional wall motion abnormalities; mild LVH (admission in Apr 2021 - suspected Takotsubo syndrome/stress cardiomyopathy at that time) - Mild leukocytosis on admission at 11.2 which is resolved; remains afebrile - Continue Unasyn at this time - patient reporting flairs of her lupus/joint pain with dosing - did read penicillins can increase pain in lupus but hard to say if changing antibiotics would improve the situation - ID consultation completed -- Recommending Sputum Cx (ordered), Legionella negative, echo, U/S port site to assess for any abscess (initially refused today but willing to complete once discussed further with her); hepatitis panel pending; HIV/syphilis; Rheumatology consult (unable to perform here but she has an outpatient appt in September); consider GI consult given intermittent liver bumps but this has been worked up in the past. Can have outpatient F/U - Will utilize PICC line at this time given active treatment for bacteremia - will place for U/S of port area for any new development of abscess to help determine length of Abx - Awaiting an infusion company to be able to supply needs. 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 and suspect she will be able to handle Abx at home easily given her background - possibly can start over the weekend 2) Pneumonia -Discharged home (07/17) for outpatient management with cefdinir and azithromycin; and prednisone -CT chest (07/17): focal consolidation right lower lung, few additional scattered nodular densities within the right lower lobe and left lung, trace bilateral effusions -- Incidental finding of a 1.9 cm focal irregular density within the upper outer quadrant R breast - follow-up non-emergent mammogram/ultrasound - discussed with patient so she is aware - breast imaging is done as outpatient setting due to breast imaging and will assist with arrangement -Repeat chest XR (07/21): No significant change in a round focus of suspected consolidation within the right lower lobe, likely infectious, f/u XR for resolution recommended -- Recommend repeat CXR x 1 month -WBC 11.2 on admission now resolved, lactate WNL, procal 0.52 (mildly elevated) but repeat is now negative - Abx as above - Urine legionella negativ 3) Chronic pain - Suspect trigger point related vs visceral hypersensitivity -Sent home with 2 weeks worth of scheduled tramadol and as needed oxycodone for breakthrough pain on 07/14 -- Reports she is involved with organization given her psychiatric history and awaiting to get into their pain management clinic but has missed appointments due to hospitalization -chronic pain due to rheumatologic disease, fibromyalgia, and anxiety; concern for growing opioid dependence and tolerance -Attempting more oral options to help with transition home - may benefit from a long acting formulation twice daily with breakthrough coverage at least until Abx complete - discussed with Pain Management and they will stop in tomorrow - Methylprednisolone 40 mg IV daily x 3 doses - seems to help -- Can also prescribe methylprednisolone orally to help with infusions when at home?? however would want to limit use due to immunosuppressive componenet -Can do intermittent doses of Toradol but has had multiple doses in early admission -pain management consulted - appreciated recommendations -monitor kidney function 4) Elevated LFTs - Fluctuates - Improving without intervention - AST/ALT predominantly normal; Alk phos improving- possibly from medications ? Lupus? -- Has had work-up previously for this - - previously seen by [facility] -- Did have a dose of diflucan -h/o cholecystectomy -ddx hepatitis vs hepatocellular injury vs biliary obstruction -(07/22): AST 70, ALT 110, ALP 275 -RUQ US: no biliary duct dilation, exam compromised by suboptimal penetration, partially obscured pancreas -trend CMP, GGT at 197 5) Candiduria -Urine culture grew melo (07/18) -complains of vaginal sensitivity during examination --speculum examination: white frothy vaginal discharge -Diflucan 150mg PO x1 completed 6) Pelvic bleeding -Hgb 11.4 and stable -h/o hysterectomy ~8 years ago -ddx vaginal bleeding versus urethral bleeding - maybe some irritation given melo - seems mostly with wiping -speculum examination performed on 07/21 shows no signs of bleeding -cont. to monitor 7) Chest pain - presenting with chronic, expanding chest pain - Takotsubo cardiomyopathy at 04/2021 admission, repeat echo during 05/2021 admission showed return of normal EF - 05/09/21 cardiac cath did not show any evidence of CAD - ddx visceral hypersensitivity contributes to her abdominal pain, trigger points, costochondritis -- Consideration for CELIO? - EKG: NSR, no ST segment changes, prolonged QT 8) Systemic lupus -multisystem hx including recurrent miscarriages, HTN, perhaps related to SLE. -outpt f/u; has apt 09/2021 to get new establishment with Rheumatology - was on Plaquenil in the past but unable to tolerate 9) Poorly-controlled hypertension (seems to be improving this admission but patient reports seems to worsen when she is outpatient) -Cont. home chlorthalidone 25 mg daily, losartan 50 mg daily, carvedilol 12.5 mg BID, and metoprolol 50 mg daily -- Verified with patient she is on two beta blockers as previous discharges does not seem to show this - but she is a [facility] patient so maybe adjusted as outpatient? -cont. home clonidine PRN 10) Gastroparesis -cont. home famotidine, Amitiza, and linzess 11) Hypothyroid: -cont. home levothyroxine 12) Depression and anxiety -Cont. home fluoxetine and Xanax 13) Fibromyalgia: -cont. home Gabapentin, baclofen 14) diarrhea, resolved -complained of nonodorous diarrhea - possibly related to Abx -c. diff negative Plan: - Appreciate ID consultation - Will need infusion company set up hoping to try and D/C tomorrow to home if possible Admission and Anticipated Discharge Date Admission Date: July 18, 2021 Subjective Continues to have ongoing pain worsening when given the IV Abx. Trying to determine a therapeutic regimen to assist with discomfort. Discussed with pain management who will be in tomorrow. Working on getting home IV set up with infusion company. Review of Systems Review of Systems: All systems reviewed & are unremarkable except as noted in Subjective Results & Data Results & Data ([facility]) Vital Signs (Past 12 Hours) Vital Signs Temp Pulse Pulse Resp BP BP Pulse Ox 07/25/21 15:00 37.2 C 53 L 18 114/73 97 07/25/21 07:29 36.7 C 69 16 128/71 95 PG Care Time/CCT Total # of Minutes Spent Total Time Spent with Patient: Total time spent is greater than 50% in coordination of care (as documented) at patient's floor/unit and/or counseling patient: Coding Level of Care Code 47382 Subseq Hosp Care Lvl 3 Diagnoses Bacteremia R78.81
--- NOTE | 2021-07-25 20:41 | Ultrasound Report ---
US effusion-chest/mediastinum CLINICAL HISTORY: look for abscess at old port site - L chest . Port removal 1 week ago with erythema at site of incision. TECHNIQUE: Real-time grayscale sonographic images of the chest wall were obtained. Comparison: None available at the time of this dictation. FINDINGS: There is a small superficial fluid collection medial to the site of insertion measuring 1.6 x 0.5 x 1.2 cm. There is slightly heterogeneous with no increased vascularity present. This most lela racteristic of a seroma rather than an abscess. IMPRESSION: Ultrasound findings most characteristic of a subcutaneous seroma at the site of previous incision. ACT 112: Negative or not required by law. Electronically signed by: Loki Harrell M.D. 07/25/2021 8:40 PM
[2021-07-25] MEDS ORDERED: KETOROLAC 30 MG/ML VIAL ONE (23:00)
[2021-07-26 02:06] LABS: Hepatitis A Antibody IgM NON-REACTIVE (NON-REACTIVE); Hepatitis B Core Antibody IgM NON-REACTIVE (NON-REACTIVE)
[2021-07-26] MEDS: oxyCODONE HCL IR 5 MG TAB (IMMEDIATE RELEASE) PO PRN ×3 (03:22→14:10)
[2021-07-26] MEDS: AMPICILLIN/SULBACTAM SOD 3,000 MG in 0.9 % SODIUM CHLORIDE 100 ML IV SCH ×2 (04:15→09:27)
[2021-07-26] MEDS: MoRPHine SULFATE 4 MG/ML 1 ML CARP\\VIAL IV PRN ×3 (04:44→15:51)
[2021-07-26] MEDS: LEVOTHYROXINE SODIUM 25 MCG TABLET PO SCH (05:57)
[2021-07-26 06:21] LABS: Hematocrit (blood only) 35.2 % (37-47); Hemoglobin 11.5 g/dL (12.0-16.0); Mean Corpuscular Hemoglobin 30.6 pg (25-34); Mean Corpuscular Hgb Conc 32.7 g/dL (32-36); Mean Corpuscular Volume 93.6 fL (80-100); Platelet Count 302 K/uL (130-400); RDW Coefficient of Variation 13.5 % (11.5-14.5); RDW Standard Deviation 46.2 fL (36.4-46.3); Red Blood Count 3.76 M/uL (4.2-5.4); White Blood Count 10.65 K/uL (4.8-10.8)
[2021-07-26 06:56] LABS: Albumin Level 2.7 gm/dl (3.4-5.0); BUN Creatinine Ratio 21.2 (10-20); Calcium 8.9 mg/dl (8.5-10.1); Creatinine Clr Calc Pharmacy 108.4 ml/min; Est GFR (African American) 96.6 ml/min; Est GFR (Non-African American) 83.3 ml/min; Potassium 3.6 mmol/L (3.5-5.1)
[2021-07-26 06:59] LABS: Albumin Globulin Ratio 0.7 (0.9-2); Bilirubin,Total 0.3 mg/dl (0.2-1); Globulin 4.1 gm/dl (2.5-4.0); Total Protein 6.8 gm/dl (6.4-8.2)
[2021-07-26] MEDS: GABAPENTIN 300 MG CAP PO SCH ×2 (08:14→13:08)
[2021-07-26] MEDS: SACCHAROMYCES BOULARDII 250 MG CAP PO SCH (08:15)
[2021-07-26] MEDS: LUBIPROSTONE 8 MCG CAP PO SCH (08:15)
[2021-07-26] MEDS: FAMOTIDINE 20 MG TAB PO SCH (08:15)
[2021-07-26] MEDS: FUROSEMIDE 20 MG TAB PO SCH (08:16)
[2021-07-26] MEDS: LINACLOTIDE 145 MCG CAPSULE PO SCH (08:16)
[2021-07-26] MEDS: FLUoxetine HCL 20 MG CAP PO SCH (08:16)
[2021-07-26] MEDS: CHLORTHALIDONE 25 MG TAB PO SCH (08:17)
[2021-07-26] MEDS: LOSARTAN POTASSIUM 50 MG TAB PO SCH (08:17)
[2021-07-26] MEDS: METOPROLOL TARTRATE 50 MG TAB PO SCH (08:17)
[2021-07-26] MEDS: carvediloL 12.5 MG TAB PO SCH (08:17)
[2021-07-26] MEDS: ENOXAPARIN INJ 40 MG/0.4 ML SYR SQ SCH (08:18)
[2021-07-26] MEDS: ALPRAZolam 0.5 MG TABLET PO PRN (08:22)
--- NOTE | 2021-07-26 08:33 | Pain Management Progress Note ---
Date of Service July 26, 2021 Assessment & Plan (1) Systemic lupus: (2) Chronic pain syndrome: Plan: * Continue Oxycodone 15mg for breakthrough pain * Initiated on OxyContin 10mg BID. This is only for the next 7 days during antibiotic therapy. Do not recommend chcf use. * Patient is in the process of getting involved with a pain clinic to start on Methadone for chronic pain. * Will sign off on the patient. Please call with any questions or concerns. Admission and Anticipated Discharge Date Admission Date: July 18, 2021 Subjective Patient is reporting increased pain immediately after the IV ABX are given. Patient describes an all over burning of her body. She has been taking Oxycodone 15 prior to administration and IV Morphine afterwards which has been helping. She is aware that the antibiotic will be given over the next 7 days. Pain is rated 8/10 currently. The pain along the right flank has resolved. Physical Exam Physical Exam: GENERAL: This is a 40 year old female. In no acute distress. HEAD/FACE: Normocephalic and atraumatic. EYES: No drainage or conjunctival injection. ENT: Nose without bleeding or discharge. Oral mucosa moist. NECK: Full ROM without apparent pain. No swelling or masses noted. RESPIRATORY: Patient with unlabored breathing. No signs of respiratory distress. CHEST/AXILLA: Chest movement symmetrical. No deformities noted. ABDOMEN/GI: No distension. No CVA tenderness. BACK: Moves without difficulty SKIN: [place], warm and dry. No rash noted. MS/EXTREMITY: No swelling, no deformities. Moving extremities appropriately. NEURO: Alert and appears oriented. Speech is fluent. Cranial Nerves are grossly intact. PSYCH: Alert, pleasant, affect is calm
[2021-07-26] MEDS ORDERED: oxyCODONE HCL 10 MG TABCR (OxyCONTIN) PO SCH (09:00)
--- NOTE | 2021-07-26 09:03 | Surgery Progress Note ---
Date of Service July 26, 2021 Assessment & Plan (1) Bacteremia: Plan: POD 7 port removal skin sutures removed, steris applied planning for continued IV abx at home will see back in clinic in about a week to discuss port replacement maintain PICC until port can be replaced Admission and Anticipated Discharge Date Admission Date: July 18, 2021 Subjective incision was itching but resolved after bandage removed Physical Exam Skin: incision healing well, no erythema 1 cm seroma on U/S yesterday would be expected post op Results & Data ([facility]) Vital Signs (Past 12 Hours) Vital Signs Temp Pulse Pulse Resp BP BP Pulse Ox 07/26/21 07:00 36.6 C 54 L 18 127/76 98 07/25/21 21:16 36.8 C 55 L 140/75 96 PG Care Time/CCT Total # of Minutes Spent Total Time Spent with Patient: Total time spent is greater than 50% in coordination of care (as documented) at patient's floor/unit and/or counseling patient: Coding Level of Care Code None Diagnoses Bacteremia R78.81
[2021-07-26 12:46] LABS: Basophils # (auto) 0.04 K/uL (0-0.2); Basophils % (auto) 0.4 %; Eosinophils # (auto) 0.18 K/uL (0-0.5); Eosinophils % (auto) 1.7 %; Hematocrit (blood only) 38.9 % (37-47); Hemoglobin 12.6 g/dL (12.0-16.0); Immature Granulocytes # (auto) 0.16 K/uL (0.00-0.02); Immature Granulocytes % (auto) 1.5 %; Lymphocytes # (auto) 3.56 K/uL (1.2-3.4); Lymphocytes % (auto) 34.2 %; Mean Corpuscular Hemoglobin 30.1 pg (25-34); Mean Corpuscular Hgb Conc 32.4 g/dL (32-36); Mean Corpuscular Volume 93.1 fL (80-100); Mean Platelet Volume 9.5 fL (7.4-10.4); Monocytes # (auto) 0.56 K/uL (0.11-0.59); Monocytes % (auto) 5.4 %; Neutrophils % (auto) 56.8 %; Platelet Count 333 K/uL (130-400); RDW Coefficient of Variation 13.4 % (11.5-14.5); RDW Standard Deviation 45.5 fL (36.4-46.3); Red Blood Count 4.18 M/uL (4.2-5.4)
[2021-07-26 12:55] LABS: Partial Thromboplastin Ratio 1.2; Partial Thromboplastin Time 30.7 Seconds (21.0-31.0)
[2021-07-26 14:23] LABS: Estimated Average Glucose 88 mg/dl; Hemoglobin A1C 4.7 % (4.5-5.6)
--- NOTE | 2021-07-26 20:09 | Discharge Summary ---
Date of Service July 26, 2021 Admission HPI Per Admitting Provider 40-year-old female with a past medical history including hypertensive urgency/emergency, poorly controlled hypertension, peptic ulcer disease, systemic lupus, serositis, hypothyroidism, hematemesis, depression, lupus anticoagulant disorder, pulmonary embolism, and fibromyalgia presented to the ED for confirmed bacteremia. Patient was discharged yesterday from [facility] with pneumonia to be treated outpatient with cefdinir and azithromycin. Blood cultures were pending on discharge and subsequently grew gram positive cocci in chains so patient was told to return to [facility] for further evaluation and treatment. She still has this right sided rib pain near the site of her pneumonia which has not gone away even with use of oxycodone 5mg and tramadol 50mg. She still also complains of chest pain which has been extensively worked up in the past. Describes pain as sharp and constant, she thinks pain is spreading across left side of chest. However, also states she is in generalized pain and fatigue likely due ot chronic conditions. Principal Diagnosis Bacteremia Discharge Exam PHYSICAL EXAM General Appearance: WDWN in NAD who is A&O x 3 HEENT: Head is normocephalic/atraumatic; Hearing grossly intact Neck: Supple; Trachea midline; Neg JVD Heart: RRR with no M/G/R Lungs: CTA in all lung duarte bilaterally slightly diminished at bases; Respirations unlabored Abdomen: Soft, non-tender, non-distended; Positive BS x 4 quadrants Extremities: Neg cyanosis or edema; PICC in LUE Neurological: Speech clear; Gross motor/sensory function intact; Neg focal neurologic deficits Psychiatric: Appropriate mood/affect Skin: Normal Color; Warm/Dry; port incision well approximated with sutures removed Discharge Data Allergies Allergy/AdvReac Type Severity Reaction Status Date / Time dexamethasone Allergy Intermediate HIVES Verified 07/18/21 20:03 latex Allergy Intermediate HIVES Verified 07/18/21 20:03 pregabalin Allergy Intermediate FACE AND Verified 07/18/21 20:03 LIPS SWELLED Sulfa (Sulfonamide Allergy Intermediate LUPUS Verified 07/18/21 20:03 Antibiotics) FLARE UP morphine Allergy Mild local Verified 07/18/21 20:03 reaction at site duloxetine AdvReac Intermediate SEROTONIN Verified 07/18/21 20:03 SYNDROME escitalopram AdvReac Intermediate WENT CRAZY Verified 07/18/21 20:03 sertraline [From Zoloft] AdvReac Intermediate WENT CRAZY Verified 07/18/21 20:03 Consultations 07/18/21 19:31 ED Decision to Admit Stat 07/18/21 23:31 Consult General Surgery Routine 07/21/21 14:22 Consult Pain Management Routine 07/22/21 14:33 Consult Infectious Diseases Routine Procedures Performed Operation Date: 07/19/21 18:25 Actual Procedures p Infusaport Removal(Not Applicable) - Edison Adamson MD, FACS Ordered Studies Chest X-Ray 07/18/21 15:59 XR chest 1V portable CLINICAL HISTORY: SEPSIS. Follow-up right lung pneumonia COMPARISON STUDY: Portable chest from 07/17/[address] chest from 07/17/2021 TECHNIQUE: 1 view of the chest FINDINGS: Single frontal view of the chest demonstrates the cardiomediastinal silhouette to be within normal limits. Compared to previous examination, the alveolar opacity within the right lower lobe represents the presence of pneumonia as seen on interval CT. No other definite confluent alveolar opacities are seen radiographically. There is no evidence for pleural effusion. There is no evidence for vascular congestion. There is no acute osseous pathology. IMPRESSION: Persistent alveolar opacity within the right lower lobe representing the presence of pneumonia as identified on interval CTA chest. ACT 112: Negative or not required by law. Electronically signed by: Loki Harrell M.D. 07/19/2021 7:42 AM Liver Ultrasound 07/20/21 10:29 US liver CLINICAL HISTORY: RUQ abdominal pain, s/p cholecystectomy years ago COMPARISON STUDY: CT of the abdomen and pelvis August 25, 2020. MRCP August 29, 2020. FINDINGS: This exam is compromised by suboptimal penetration. There is no biliary ductal dilatation status post cholecystectomy. The common bile duct measures 5 mm in caliber. The great body is normal. Head and tail are obscured. There is no right hydronephrosis. No hepatic lesions are identified on this study. IMPRESSION: 1. No biliary ductal dilatation status post cholecystectomy. 2. Exam compromised by suboptimal penetration. Partially obscured pancreas. ACT 112: Negative or not required by law. Electronically signed by: Olegario Anderson M.D. 07/20/2021 11:38 AM Chest X-Ray 07/21/21 10:56 XR chest 2V PA/lateral CLINICAL HISTORY: Cough. COMPARISON STUDY: Chest CT July 17, 2021. Chest radiograph July 18, 2021. FINDINGS: Mild cardiomegaly is unchanged. There are trace bilateral pleural effusions. A round focus of suspected consolidation within the right lower lobe remains unchanged. There is no evidence for pulmonary edema. IMPRESSION: 1. No significant change in a round focus of suspected consolidation within the right lower lobe. This favors an infectious process. Radiographic follow-up is recommended to ensure resolution. 2. Trace bilateral pleural effusions. ACT 112: Negative or not required by law. Electronically signed by: Olegario Anderson M.D. 07/21/2021 11:51 AM Chest Ultrasound 07/25/21 08:13 US effusion-chest/mediastinum CLINICAL HISTORY: look for abscess at old port site - L chest . Port removal 1 week ago with erythema at site of incision. TECHNIQUE: Real-time grayscale sonographic images of the chest wall were obtained. Comparison: None available at the time of this dictation. FINDINGS: There is a small superficial fluid collection medial to the site of insertion measuring 1.6 x 0.5 x 1.2 cm. There is slightly heterogeneous with no increased vascularity present. This most characteristic of a seroma rather than an abscess. IMPRESSION: Ultrasound findings most characteristic of a subcutaneous seroma at the site of previous incision. ACT 112: Negative or not required by law. Electronically signed by: Loki Harrell M.D. 07/25/2021 8:40 PM Hospital Course (1) Bacteremia: 40-year-old female with a past medical history including hypertensive urgency/emergency, poorly controlled hypertension, peptic ulcer disease, systemic lupus, serositis, hypothyroidism, hematemesis, depression, lupus anticoagulant disorder, pulmonary embolism, and fibromyalgia presented to the ED for confirmed bacteremia. 1) Bacteremia - Initial BCx from 07/12 (one of two) were growing enterococcus faecalis, alpha strep, and coag neg staph - she was admitted that time for AMS but seemed to improve without intervention - do not see that she was discharged on any antibiotics but cx states verified on 07/17..so uncertain if this just populated?? She did present to the ED on 07/17 for pain and SOB and new cx obtained which again grew enterococcus faecalis and staph lugdunensis. -- She had her port removed on 07/19 - which is growing enterococcus and atinetobacter lwoffii and appears was the source of the bacteremia - Repeat BCx from 07/21 currently with NGTD -- Repeat Cx without growth so low suspicion for endocarditis -- Discussed with cardiology who recommended initial transthoracic echo. No plans for CELIO at this time but could consider repeat Echo as outpatient to have an additional look -- Transthoracic echo this admission - EF 60-65%; no regional wall motion abnormalities; no valvular pathology; no vegetation -- Last echo - 17 May - EF 60-65%, no regional wall motion abnormalities; mild LVH (admission in Apr 2021 - suspected Takotsubo syndrome/stress cardiomyopathy at that time) - Mild leukocytosis on admission at 11.2 which is resolved; remains afebrile - Continue Unasyn at this time - patient reporting flairs of her lupus/joint pain with dosing - did read penicillins can increase pain in lupus but hard to say if changing antibiotics would improve the situation - ID consultation completed -- Recommending Sputum Cx (ordered but unable to give), Legionella negative, echo, U/S port site to assess for any abscess (seroma but no abscess); hepatitis panel negative; HIV/syphilis (can do as outpatient; Rheumatology consult (unable to perform here but she has an outpatient appt in September); consider (tolerating without issue even though listed as allergy - stated he had a rash on the top of the head many years ago and avoided since) - Will utilize PICC line at this time given active treatment for bacteremia - gen surg state to leave PICC and will follow-up in a week to schedule new port as she is a hard venous access - Infusion company arranged for IV Abx until 18 Decemeber 2) Pneumonia -Discharged home (07/17) from ER for outpatient management with cefdinir and azithromycin; and prednisone - called back due to above -CT chest (07/17): focal consolidation right lower lung, few additional scattered nodular densities within the right lower lobe and left lung, trace bilateral effusions -- Incidental finding of a 1.9 cm focal irregular density within the upper outer quadrant R breast - follow-up non-emergent mammogram/ultrasound - discussed with patient so she is aware - breast imaging is done as outpatient setting due to breast imaging and will assist with arrangement -Repeat chest XR (07/21): No significant change in a round focus of suspected consolidation within the right lower lobe, likely infectious, f/u XR for resolution recommended -- Recommend repeat CXR x 1 month -WBC 11.2 on admission now resolved, lactate WNL, procal 0.52 (mildly elevated) but repeat is now negative - Abx as above - Urine legionella negative 3) Chronic pain - Suspect trigger point related vs visceral hypersensitivity -- Reports she is involved with organization given her psychiatric history and awaiting to get into their pain management clinic but has missed appointments due to hospitalization -pain management consulted - appreciated recommendations - plan for Oxy 10 mg BID and IR for breakthrough just to get through Abx 4) Elevated LFTs - Fluctuates - normalizes then elevates - possibly from medications ? Lupus? PCOS? -- Has had work-up previously for this - - previously seen by [facility] - Initially had elevated PTT but this is normal -h/o cholecystectomy -ddx hepatitis vs hepatocellular injury vs biliary obstruction from sludge?? -RUQ US: no biliary duct dilation, exam compromised by suboptimal penetration, partially obscured pancreas - GGT at 197 - Recommend outpatient F/U with GI 5) Candiduria -Urine culture grew melo (07/18) -complains of vaginal sensitivity during examination --speculum examination: white frothy vaginal discharge -Diflucan 150mg PO x1 completed 6) Pelvic bleeding -Hgb 11.4 and stable -h/o hysterectomy ~8 years ago -ddx vaginal bleeding versus urethral bleeding - maybe some irritation given melo - seems mostly with wiping -speculum examination performed on 07/21 shows no signs of bleeding -cont. to monitor 7) Chest pain - presenting with chronic, expanding chest pain - Takotsubo cardiomyopathy at 04/2021 admission, repeat echo during 05/2021 admission showed return of normal EF - 05/09/21 cardiac cath did not show any evidence of CAD - ddx visceral hypersensitivity contributes to her abdominal pain, trigger points, costochondritis -- Consideration for CELIO? - EKG: NSR, no ST segment changes, prolonged QT 8) Systemic lupus -multisystem hx including recurrent miscarriages, HTN, perhaps related to SLE. -outpt f/u; has apt 09/2021 to get new establishment with Rheumatology - was on Plaquenil in the past but unable to tolerate 9) Poorly-controlled hypertension (seems to be improving this admission but patient reports seems to worsen when she is outpatient) -Cont. home chlorthalidone 25 mg daily, losartan 50 mg daily, carvedilol 12.5 mg BID, and metoprolol 50 mg daily -- Verified with patient she is on two beta blockers -cont. home clonidine PRN 10) Gastroparesis -cont. home famotidine, Amitiza, and linzess 11) Hypothyroid: -cont. home levothyroxine 12) Depression and anxiety -Cont. home fluoxetine and Xanax 13) Fibromyalgia: -cont. home Gabapentin, baclofen 14) diarrhea, resolved -complained of nonodorous diarrhea - possibly related to Abx -c. diff negative - Complete IV Abx - plan for Thursday for labs and dressing change while awaiting home nursing - Follow-up with GI for liver enzymes; F/U with Rheumatology for Lupus - F/U with Gen Surg for Port REmoval wound check and discussion for new port placement - Breast U/S and/or Mammogram - Recommend pain management involvement Total Time Total Time Spent Total Time Spent (In Minutes): Spent greater than 30 minutes preparing patient for discharge. This includes discussion with patient/family, assessment, intervention, medication reconcili ation, and coordination of care. Discharge Plan Discharge Items Patient Disposition: Home - Home Health Services Reason For Visit: BACTEREMIA Discharge Diagnosis: Bacteremia (Blood Stream Infection) Activity: Resume your previous activity Bathing Comment: ok to shower, can remove the steri-strips in a few days Non-emergency contact: Primary Care Provider Call non-emergency contact if: you have any medication questions, your symptoms worsen and you have a fever Follow-up/Referrals: Edison Adamson MD, FACS [Surgeon] - (Please call the office to make an appointment near the time you antibiotics are finishing to arrange for port placement) Matt Adame DO [Primary Care Provider] - 07/30/21 9:10 am Diet: Regular Addtl Attending Provider Instructions: Bacteremia: - You were admitted for a blood stream infection that started due to bacteria on your port. You are growing enterococcus and actinetobacter which to get both of these organisms covered you require Unasyn. - You will need to be on Unasyn until 08/03 which would allow for a full 14 days antibiotics timed of that last negative blood culture - You had your port removed on 07/19 and had the stitches taken out today. Please follow the directions given by the surgeon and call for follow-up to have a wound check and discuss new port placement - You had an echocardiogram performed here in the hospital that did not show a vegetation (chunk of infection) on your heart valves. This can be repeated as an outpatient to reassess but your blood cultures from 07/21 do not reveal any more bacterial growth which is reassuring Pneumonia: - Recommend to have a follow-up chest xray in about a month to reassess for resolution of your pneumonia Elevated Liver Enzymes: - These seem to jump up and down. It is possible this is medication related vs something else. They are not drastically high but the next day would be normal then bounce up again. - You should definitely follow-up with the GI doctors to have further testing and to trend this more High Blood Pressure: - Continue your home medications as prescribed. The Losartan is on the list here but if you are not taking this then hold and talk with Dr. Adame to see how to streamline your blood pressure medications Right Breast: - Incidental finding of a 1.9 cm focal density is seen in the upper outer quadrant of the right breast. It is recommended you have a mammogram or ultrasound to look at this further - We do have a breast care center here in [facility]. The number is [phone] and would be worth given them a call to arrange follow-up as these specific ultrasounds we do not perform here with our technicians as a more specialized approach is recommended You have sutures that will be removed at one of your follow up appointments with Dr. Adamson. Pending Studies at Discharge: No Stand-Alone Forms: My [facility], Opioid Pain Management, Smoking Cessation Medications and DC Order Prescriptions: New ampicillin-sulbactam [Unasyn] 3 gram recon soln 3 g IV Q6H 8 Days Qty: 1 RF: 0 oxycodone [OxyContin] 10 mg Tablet,Oral Only,Ext.Rel.12 Hr 10 mg PO BID 10 Days Qty: 20 RF: 0 oxycodone 5 mg Tablet 15 mg PO Q4 PRN (Reason: pain) 10 Days Qty: 180 RF: 0 Continued famotidine 20 mg tablet 20 mg PO BID RF: 0 Linzess 290 mcg capsule 290 mcg PO QAM RF: 0 carvedilol 12.5 mg tablet 12.5 mg PO BID RF: 0 chlorthalidone 25 mg tablet 25 mg PO QAM RF: 0 baclofen 10 mg tablet 20 mg PO TID PRN (Reason: Muscle Spasm) RF: 0 gabapentin 300 mg Capsule 900 mg PO TID Qty: 30 RF: 0 levothyroxine 25 mcg tablet 25 mcg PO QAM RF: 0 lubiprostone [Amitiza] 24 mcg capsule 24 mcg PO BID RF: 0 alprazolam 1 mg tablet 1 mg PO TID PRN (Reason: Anxiety) RF: 0 fluoxetine 20 mg capsule 40 mg PO QAM RF: 0 clonidine HCl 0.1 mg tablet 0.1 mg PO DAILY PRN (Reason: High Systolic Blood Pressure. ) RF: 0 metoprolol tartrate [Lopressor] 50 mg tablet 50 mg PO QAM RF: 0 furosemide [Lasix] 20 mg tablet 20 mg PO QAM RF: 0 Emgality Pen 120 mg/mL pen injector 120 mg SUBCUT MO RF: 0 multivitamin Tablet 1 tab PO QAM RF: 0 cholecalciferol (vitamin D3) [Vitamin D3] 50 mcg (2,000 unit) Tablet 0 mcg PO QAM RF: 0 Saccharomyces boulardii [Florastor] 250 mg capsule 250 mg PO BID Qty: 20 RF: 0 ondansetron 4 mg tablet,disintegrating 4 mg PO Q6H PRN (Reason: nausea and vomiting) Qty: 14 RF: 0 Discontinued losartan 100 mg tablet 50 mg PO QAM RF: 0 tramadol 50 mg tablet 50 mg PO Q8H 14 Days Qty: 42 RF: 0 oxycodone 5 mg tablet 5 mg PO Q8H PRN (Reason: severe pain (scale score 7-10)) Qty: 20 RF: 0 azithromycin 250 mg tablet 250 mg PO DAILY 4 Days Qty: 4 RF: 0 cefdinir 300 mg capsule 300 mg PO BID 10 Days Qty: 20 RF: 0 prednisone 20 mg tablet 60 mg PO DAILY 4 Days Qty: 12 RF: 0 Discharge Orders: Discharge Order (Routine); Ordered 07/26/21 Ordered By: Rosmery Cabrera Admission Data Admit Date/Time: 07/18/21 22:25 Attending Provider: Barrett Balderas Admit Provider: Austen Mccarty Primary Care Provider: Matt Adame Other Providers: Adelaide Perdue ; Edison Adamson ; Elyse Anderson ; Bernabe Amezcua ; Valarie Ureña ; Joaquim Perdue I. ; Sam King II ; Sarah Rose ; Gwyn Nation ; Mendoza Mccurdy ; Juno [facility] Other Interventions: Discharge Summary Assessment (RN) Last Done: 07/26/21 15:14 Supervising Physician Co-Signing Physician Notes Attending note: patient seen and examined with Rosmery Cabrera PA-C. I agree with her discharge summary. I personally reviewed the labs and imaging findings. patient feeling better overall, pain is controlled on current regimen, no fev er/chills, repeat cultures are clean - Bacteremia: port removed, suspect it was source of infection, no abscess or fluid collection on US of the prior port repeat blood cultures clean for several days, TTE was without vegetations, no murmur on exam has PICC line, complete 10 days of Unasyn at home pain control while on the antibiotics as her lupus associated pain has flared while on antibiotics, give her Oxycontin and OxyIR, d/w pain management follow up with general surgery for new port site once complete with antibiotics Coding Level of Care Code D/C DAY MANAGEMENT >30 MINS Diagnoses Bacteremia R78.81
== END 2021-07-26 16:10 | disposition home health service (06) | DRG 314 ==
LOC: ED 15:37 → SUATTDRO 22:25 → 3W 22:25

== ENCOUNTER 2021-08-15 15:58 | Observation (INO) ==
--- NOTE | 2021-08-15 16:57 | XRay Report ---
XR chest 1V portable CLINICAL HISTORY: recent pneumonia, cp, sob. COMPARISON STUDY: 07/21/2021 TECHNIQUE: 1 view of the chest FINDINGS: Single frontal view of the chest demonstrates the cardiomediastinal silhouette to be within normal li mits. Compared to the previous examination, there has been almost complete resolution of right lung p neumonia. Only minimal residual alveolar opacity is seen. No new alveolar opacities are identified. T here is no evidence for pleural effusion. There is no evidence for vascular congestion. There is no a cute osseous pathology. IMPRESSION: Almost complete interval resolution of previously identified right lung pneumonia. No acu te chest disease is seen. ACT 112: Negative or not required by law. Electronically signed by: Loki Harrell M.D. 08/15/2021 4:55 PM
[2021-08-15 18:04] LABS: Basophils # (auto) 0.07 K/uL (0-0.2); Eosinophils # (auto) 0.14 K/uL (0-0.5); Eosinophils % (auto) 2.1 %; Hematocrit (blood only) 49.6 % (37-47); Hemoglobin 17.4 g/dL (12.0-16.0); Immature Granulocytes # (auto) 0.01 K/uL (0.00-0.02); Immature Granulocytes % (auto) 0.1 %; Lymphocytes # (auto) 2.66 K/uL (1.2-3.4); Lymphocytes % (auto) 39.9 %; Mean Corpuscular Hemoglobin 30.7 pg (25-34); Mean Corpuscular Hgb Conc 35.1 g/dL (32-36); Mean Corpuscular Volume 87.6 fL (80-100); Mean Platelet Volume 10.9 fL (7.4-10.4); Monocytes # (auto) 0.54 K/uL (0.11-0.59); Monocytes % (auto) 8.1 %; Neutrophils # (auto) 3.25 K/uL (1.4-6.5); Neutrophils % (auto) 48.8 %; Platelet Count 323 K/uL (130-400); RDW Coefficient of Variation 12.9 % (11.5-14.5); RDW Standard Deviation 41.3 fL (36.4-46.3); Red Blood Count 5.66 M/uL (4.2-5.4); White Blood Count 6.67 K/uL (4.8-10.8)
[2021-08-15 18:25] LABS: Albumin Level 4.7 gm/dl (3.4-5.0); BUN Creatinine Ratio 12.8 (10-20); Blood Urea Nitrogen 20 mg/dl (7-18); Calcium 10.3 mg/dl (8.5-10.1); Carbon Dioxide 22 mmol/L (21-32); Chloride 104 mmol/L (98-107); Est GFR (African American) 48.4 ml/min; Est GFR (Non-African American) 41.8 ml/min; Glucose 91 mg/dl (70-99); Potassium 3.1 mmol/L (3.5-5.1); Sodium 135 mmol/L (136-145)
[2021-08-15 18:43] LABS: Alanine Aminotransferase 41 (12-78); Alkaline Phosphatase 98 U/L (45-117); Aspartate Aminotransferase 30 U/L (15-37); Bilirubin,Total 0.8 mg/dl (0.2-1); Globulin 4.8 gm/dl (2.5-4.0); Total Protein 9.5 gm/dl (6.4-8.2); Troponin I < 0.015 ng/ml (0-0.045)
[2021-08-15] MEDS ORDERED: HYDROmorphone INJ 1 MG/ML SYRINGE IV STA (20:30)
[2021-08-15] MEDS ORDERED: ONDANSETRON INJ 2 MG/ML 2 ML VIAL IV STA ×2 (20:30→22:15)
[2021-08-15] MEDS ORDERED: SODIUM CHLORIDE 0.9% 1000ML 1,000 ML IV ONE (20:30)
--- NOTE | 2021-08-15 20:43 | Emergency Department Note ---
History of Present Illness General Chief complaint: Chest Pain Stated complaint: CHEST PAIN, VOMITING, DEHYDRATION Time Seen by Provider: 08/15/21 20:19 Source: patient and family (Boyfriend who is at the bedside) Mode of arrival: ambulatory Limitations: no limitations History of Present Illness Maximum Pain Intensity: 9 This patient comes in after feeling ill and having vomiting. She was admitted after having infection of her port and pneumonia began July she was discharged approximately the on oral antibiotics she thinks the oral antibiotics flared up her lupus she did finish her entire course. She says she is lost 20 pounds in the last couple weeks she said everything hurts and she thinks it flared up her lupus. She is been vomiting not been able to drink much. She has had some abdominal pain mostly in the left side. She had her port removed and has a PICC line in her left arm. She had no cough or shortness of breath. She has had the Covid vaccine is not had Covid. No diarrhea. Her pain in the right side of chest with pneumonia has gotten better but still has a residual twinges occasionally there and also occasion on the left. 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 Home Medications Medication Instructions Recorded Confirmed Type levothyroxine 25 mcg tablet 25 mcg PO QAM 07/10/19 08/15/21 History gabapentin 300 mg capsule 900 mg PO TID #30 cap 08/30/20 08/15/21 Rx lubiprostone 24 mcg capsule 24 mcg PO BID 05/08/21 08/15/21 History (Amitiza) alprazolam 1 mg tablet 1 mg PO BID PRN 06/13/21 08/15/21 History baclofen 10 mg tablet 20 mg PO TID PRN tab 06/19/21 08/15/21 History carvedilol 12.5 mg tablet 12.5 mg PO BID 06/19/21 08/15/21 History clonidine HCl 0.1 mg tablet 0.1 mg PO DAILY PRN 07/12/21 08/15/21 History fluoxetine 20 mg capsule 40 mg PO QAM 07/12/21 08/15/21 History furosemide 20 mg tablet (Lasix) 20 mg PO QAM 07/12/21 08/15/21 History galcanezumab-gnlm 120 mg/mL 120 mg SUBCUT MO 07/12/21 08/15/21 History subcutaneous pen injector (Emgality Pen) metoprolol tartrate 50 mg tablet 50 mg PO QAM 07/12/21 08/15/21 History (Lopressor) Saccharomyces boulardii 250 mg 250 mg PO BID #20 cap 07/17/21 08/15/21 Rx capsule (Florastor) ondansetron 4 mg disintegrating 4 mg PO Q6H PRN #14 tab 07/17/21 08/15/21 Rx tablet New Anti Psycotic 1 tab PO DAILY 08/15/21 08/15/21 History pantoprazole 40 mg tablet,delayed 40 mg PO DAILY 08/15/21 08/15/21 History release (Protonix) Allergies Allergy/AdvReac Type Severity Reaction Status Date / Time dexamethasone Allergy Intermediate HIVES Verified 08/15/21 21:15 latex Allergy Intermediate HIVES Verified 08/15/21 21:15 pregabalin Allergy Intermediate FACE AND Verified 08/15/21 21:15 LIPS SWELLED Sulfa (Sulfonamide Allergy Intermediate LUPUS Verified 08/15/21 21:15 Antibiotics) FLARE UP morphine Allergy Mild local Verified 08/15/21 21:15 reaction at site duloxetine AdvReac Intermediate SEROTONIN Verified 08/15/21 21:15 SYNDROME escitalopram AdvReac Intermediate WENT CRAZY Verified 08/15/21 21:15 sertraline [From Zoloft] AdvReac Intermediate WENT CRAZY Verified 08/15/21 21:15 Past Med/Surg History Medical History Abdominal pain Acute confusion Anxiety Chest pain Chronic pain syndrome Confusion Dehydration Depression Fibromyalgia Gastritis Gastroparesis Headache History of kidney infection History of lupus anticoagulant disorder History of migraine History of multiple miscarriages History of ovarian cyst History of umbilical hernia Hypertension Hypertensive urgency Hypothyroidism Intractable epigastric abdominal pain Lupus nephritis Osteoarthritis Peptic ulcer disease Pleuritis (09/17/14) history of Poorly-controlled hypertension Post traumatic stress disorder Pulmonary embolism history of Urinary tract infection Surgical History H/O: hysterectomy History of removal of Port-a-Cath (07/19/21) Infusaport Removal Dr. Adamson 07/19/2021 History of tonsillectomy and adenoidectomy Hx of appendectomy Hx of cholecystectomy Port-A-Cath in place (08/29/20) Mediport Placement, Left Subclavian Vein Dr. Garcia 08/29/2020 Family History Sister SLE (systemic lupus erythematosus) Family/Other SLE (systemic lupus erythematosus) maternal side Social History Smoking Status: Never smoker Tobacco Type: Cigarettes Age Started Using Tobacco: 23; Age Quit Using Tobacco: 39; Second Hand Exposure: No; Hx Alcohol Use: No Hx Substance Use: No Preferred Language: Icelandic Communication Ability: Effective Public Information Specialist Required: No Beliefs That Will Affect Care: None marital status: Single Current Living Situation: Significant Other Current Living Situation Comment: Mickey current occupational status: employed current occupation: works at [employer] for ex-[employer] How many Children do You have: 1 Feels Safe at Home: Yes Assistive Devices: None Review of Systems A total of 10 systems reviewed and were otherwise negative Physical Exam Vital Signs Vital Signs - 24 hr 08/15/21 16:14 08/15/21 21:00 Temperature 36.8 C Temperature Source Temporal Artery Scan Pulse Rate 119 H Pulse Rate [Finger] 95 H Respiratory Rate 19 18 Blood Pressure 170/129 H Blood Pressure [Right Arm] 146/106 H Blood Pressure Mean 142 Blood Pressure Mean [Right Arm] 119 Pulse Oximetry 97 97 Oxygen Delivery Method Room Air Room Air Sepsis Recent Fever Within 48 Hours No Sepsis New/Unexplained Change in Mental Status N/A Sepsis Action Taken by Nursing No Action Required General: Well developed well nourished young female who appears in no acute distress, breathing comfortably on room air. Normal speech HEENT: Normal cephalic atraumatic. Pupils are equal round and reactive to light. Extraocular movements are intact. Oropharynx is pink with somewhat dry mucous membranes. No swelling of the mouth lips or tongue. Neck: Supple with a midline trachea. No meningeal signs or stiffness, no JVD or bruits. No Stridor. Chest: Clear to auscultation bilaterally. No wheezes or rhonchi. No increased work of breathing. Heart: Regular rate and rhythm without murmurs or gallops. Abdomen: Soft nontender, nondistended without rebound guarding or rigidity. Extremities: No cyanosis clubbing or edema. No calf tenderness or assymetry. She has a PICC line in her left arm. No redness around the site. She has an IV in the right arm Spine/Back. Non tender to palpation. No CVA tenderness Skin: Good turgor without rashes. Neurologic exam: Cranial nerves two through 12 are intact. Motor and sensation are intact and symmetrical throughout. Course Administered Medications Sodium Chloride (Nss 1000ml) 1,000 mls @ 999 mls/hr IV .Q1H1M THAO Stop: 08/15/21 23:11 Last Admin: 08/15/21 22:33 Dose: 999 mls/hr Documented by: [id number] Discontinued Medications Heparin Sodium (Beef Lung) (Heparin 10 Unit/Ml 5 Ml Flush) Confirm Administered Dose 5 ml FLUSH .STK-MED ONE Stop: 08/15/21 17:50 Last Admin: 08/15/21 21:33 Dose: 5 ml Documented by: [id number] Hydromorphone HCl (Hydromorphone Inj 1 Mg/Ml Syringe) 1 mg IV NOW STA Stop: 08/15/21 20:31 Last Admin: 08/15/21 20:49 Dose: 1 mg Documented by: [id number] Sodium Chloride (Nss 1000ml) 1,000 mls @ 999 mls/hr IV .Q1H1M ONE Stop: 08/15/21 21:30 Last Infusion: 08/15/21 21:56 Dose: 0 mls/hr Documented by: [id number] Admin: 08/15/21 20:50 Dose: 999 mls/hr Documented by: [id number] Ondansetron HCl (Ondansetron Inj 2 Mg/Ml 2 Ml Vial) 4 mg IV NOW STA Stop: 08/15/21 20:31 Last Admin: 08/15/21 20:49 Dose: 4 mg Documented by: [id number] Ondansetron HCl (Ondansetron Inj 2 Mg/Ml 2 Ml Vial) 4 mg IV NOW STA Stop: 08/15/21 22:16 Last Admin: 08/15/21 22:33 Dose: 4 mg Documented by: [id number] Medical Decision Making Differential Diagnosis Pneumonia, sepsis, dehydration, cardiac disease, lupus, electrolyte or metabolic abnormality Medical Records Attestation: I reviewed the patient's medical records. Home Medications Current Medication List: was personally reviewed by me Laboratory Data Attestation: I reviewed the patient's lab results. Result diagrams: 08/15/21 17:41 08/15/21 17:41 Lab Results 08/15/21 08/15/21 08/15/21 Range/Units 17:41 17:41 17:41 WBC 6.67 (4.8-10.8) K/uL RBC 5.66 H (4.2-5.4) M/uL Hgb 17.4 H (12.0-16.0) g/dL Hct 49.6 H (37-47) % MCV 87.6 (80-100) fL MCH 30.7 (25-34) pg MCHC 35.1 (32-36) g/dL RDW Std Deviation 41.3 (36.4-46.3) fL RDW Coeff of Meg 12.9 (11.5-14.5) % Plt Count 323 (130-400) K/uL MPV 10.9 H (7.4-10.4) fL Immature Gran % (Auto) 0.1 % Neut % (Auto) 48.8 % Lymph % (Auto) 39.9 % [place] % (Auto) 8.1 % Eos % (Auto) 2.1 % Baso % (Auto) 1.0 % Neut # (Auto) 3.25 (1.4-6.5) K/uL Lymph # (Auto) 2.66 (1.2-3.4) K/uL [place] # (Auto) 0.54 (0.11-0.59) K/uL Eos # (Auto) 0.14 (0-0.5) K/uL Baso # (Auto) 0.07 (0-0.2) K/uL Immature Gran # (Auto) 0.01 (0.00-0.02) K/uL Sodium 135 L (136-145) mmol/L Potassium 3.1 L (3.5-5.1) mmol/L Chloride 104 (98-107) mmol/L Carbon Dioxide 22 (21-32) mmol/L Anion Gap 9.0 (3-11) BUN 20 H (7-18) mg/dl Creatinine 1.54 H (0.6-1.2) mg/dl Est Cr Clr Drug Dosing 54.0 ml/min Est GFR ( Amer) 48.4 ml/min Est GFR (Non-Af Amer) 41.8 ml/min BUN/Creatinine Ratio 12.8 (10-20) Glucose 91 (70-99) mg/dl Lactate 1.5 (0.4-2.0) mmol/L Calcium 10.3 H (8.5-10.1) mg/dl Magnesium 2.0 (1.8-2.4) mg/dl Total Bilirubin 0.8 (0.2-1) mg/dl AST 30 (15-37) U/L ALT 41 (12-78) Alkaline Phosphatase 98 D (45-117) U/L Troponin I < 0.015 (0-0.045) ng/ml Total Protein 9.5 H (6.4-8.2) gm/dl Albumin 4.7 (3.4-5.0) gm/dl Globulin 4.8 H (2.5-4.0) gm/dl Albumin/Globulin Ratio 1.0 (0.9-2) SARS-CoV-2 (PCR) (Negative) Influenza Type A (PCR) (Neg) Influenza Type B (PCR) (Neg) RSV (RT-PCR) (Neg) 08/15/21 Range/Units 20:07 WBC (4.8-10.8) K/uL RBC (4.2-5.4) M/uL Hgb (12.0-16.0) g/dL Hct (37-47) % MCV (80-100) fL MCH (25-34) pg MCHC (32-36) g/dL RDW Std Deviation (36.4-46.3) fL RDW Coeff of Meg (11.5-14.5) % Plt Count (130-400) K/uL MPV (7.4-10.4) fL Immature Gran % (Auto) % Neut % (Auto) % Lymph % (Auto) % [place] % (Auto) % Eos % (Auto) % Baso % (Auto) % Neut # (Auto) (1.4-6.5) K/uL Lymph # (Auto) (1.2-3.4) K/uL Deuel # (Auto) (0.11-0.59) K/uL Eos # (Auto) (0-0.5) K/uL Baso # (Auto) (0-0.2) K/uL Immature Gran # (Auto) (0.00-0.02) K/uL Sodium (136-145) mmol/L Potassium (3.5-5.1) mmol/L Chloride (98-107) mmol/L Carbon Dioxide (21-32) mmol/L Anion Gap (3-11) BUN (7-18) mg/dl Creatinine (0.6-1.2) mg/dl Est Cr Clr Drug Dosing ml/min Est GFR ( Amer) ml/min Est GFR (Non-Af Amer) ml/min BUN/Creatinine Ratio (10-20) Glucose (70-99) mg/dl Lactate (0.4-2.0) mmol/L Calcium (8.5-10.1) mg/dl Magnesium (1.8-2.4) mg/dl Total Bilirubin (0.2-1) mg/dl AST (15-37) U/L ALT (12-78) Alkaline Phosphatase (45-117) U/L Troponin I (0-0.045) ng/ml Total Protein (6.4-8.2) gm/dl Albumin (3.4-5.0) gm/dl Globulin (2.5-4.0) gm/dl Albumin/Globulin Ratio (0.9-2) SARS-CoV-2 (PCR) NEGATIVE (Negative) Influenza Type A (PCR) Negative (Neg) Influenza Type B (PCR) Negative (Neg) RSV (RT-PCR) Negative (Neg) Imaging Data Attestation: I personally reviewed and interpreted this imaging study as follows: My Impression: Chest x-rayminimal residual opacity in the right lung. Otherwise lungs are clear with out any evidence of CHF pneumonia or pneumothorax Radiologist's Impression: Chest X-Ray 08/15/21 16:17 XR chest 1V portable CLINICAL HISTORY: recent pneumonia, cp, sob. COMPARISON STUDY: 07/21/2021 TECHNIQUE: 1 view of the chest FINDINGS: Single frontal view of the chest demonstrates the cardiomediastinal silhouette to be within normal limits. Compared to the previous examination, there has been almost complete resolution of right lung pneumonia. Only minimal residual alveolar opacity is seen. No new alveolar opacities are identified. There is no evidence for pleural effusion. There is no evidence for vascular congestion. There is no acute osseous pathology. IMPRESSION: Almost complete interval resolution of previously identified right lung pneumonia. No acute chest disease is seen. ACT 112: Negative or not required by law. Electronically signed by: Loki Harrell M.D. 08/15/2021 4:[address] abdomen and pelvis without contraststat radthe solid organs are within normal limits. No obstruction. Cholesectomy. No fracture. ECG Data Attestation: I personally reviewed and interpreted this ECG as follows: Indication: + weakness Rate (beats per minute): 107 Rhythm: + sinus tachycardia ECG Intervals/blocks: + Normal QRS, + Normal QT and + Normal [place] ECG [place]: + Normal ECG ST segments: + Nonspecific ST abnormalities ECG Findings: no PACs or no PVCs Comparison ECG Date: from (07/18/21) Change: no significant change MDM Narrative This patient comes in after feeling ill after having nausea and weight loss she does look dehydrated IV access was established I did order a liter normal saline bolus she did ask for sling for pain she is done okay with Dilaudid to give her Dilaudid 1 mg IV and Zofran 4 mg IV. In terms of her blood work she has no fever or white count to suggest infection her lactic acid is also normal so it does well go against sepsis her chest x-ray looks significantly improved. This may be more dehydration related to her gastroparesis or lupus. Her BUN and creatinine are elevated compared to baseline specifically creatinine at 1.5 and clinically she looks dry. She is not as she has had a hysterectomy. CAT scan of the abdomen shows no obstruction or acute findings. The patient says she does not feel better did receive a second liter normal saline bolus and additional Zofran 4 mg IV. She tells me she does not feel she can go home. she says that she has lost over 20 pounds. her creatinine is also elevated and in light of this, I did ask Dr. Hairston to see her for observation and further hydration and evaluation. Continuous cardiac monitoring: Orders placed in EMR for continuous monitoring analyst. Upon my interpretation patient went to be in normal sinus rhythm rate of 100. Impression & Plan Acute dehydration, Lupus, Weakness, Lab test negative for COVID-19 virus Discharge Plan Visit Data Chief Complaint: Chest Pain Stated Complaint: CHEST PAIN, VOMITING, DEHYDRATION ED Provider: Pio Cannon Discharge Problem: Acute dehydration, Lupus, Weakness, Lab test negative for COVID-19 virus Forms Stand Alone Forms: My [facility] Prescriptions Prescriptions: No Action carvedilol 12.5 mg tablet 12.5 mg PO BID RF: 0 baclofen 10 mg tablet 20 mg PO TID PRN (Reason: Muscle Spasm) RF: 0 gabapentin 300 mg Capsule 900 mg PO TID Qty: 30 RF: 0 levothyroxine 25 mcg tablet 25 mcg PO QAM RF: 0 lubiprostone [Amitiza] 24 mcg capsule 24 mcg PO BID RF: 0 alprazolam 1 mg tablet 1 mg PO BID PRN (Reason: Anxiety) RF: 0 fluoxetine 20 mg capsule 40 mg PO QAM RF: 0 clonidine HCl 0.1 mg tablet 0.1 mg PO DAILY PRN (Reason: High Systolic Blood Pressure. ) RF: 0 metoprolol tartrate [Lopressor] 50 mg tablet 50 mg PO QAM RF: 0 furosemide [Lasix] 20 mg tablet 20 mg PO QAM RF: 0 Emgality Pen 120 mg/mL pen injector 120 mg SUBCUT MO RF: 0 Saccharomyces boulardii [Florastor] 250 mg capsule 250 mg PO BID Qty: 20 RF: 0 ondansetron 4 mg tablet,disintegrating 4 mg PO Q6H PRN (Reason: nausea and vomiting) Qty: 14 RF: 0 pantoprazole [Protonix] 40 mg Tablet,Delayed Release (Dr/Ec) 40 mg PO DAILY RF: 0 New Anti Psycotic 1 tab PO DAILY RF: 0 Referrals Referrals: Matt Adame DO [Primary Care Provider] -
[2021-08-15 20:55] LABS: Influenza A virus by PCR Negative (Neg); Influenza B virus by PCR Negative (Neg); RSV by PCR Negative (Neg); SARS CoV2 RNA(COVID-19) InHosp NEGATIVE (Negative)
[2021-08-15] MEDS ORDERED: SODIUM CHLORIDE 0.9% 1000ML 1,000 ML IV SCH (22:11)
--- NOTE | 2021-08-15 23:28 | History & Physical Report ---
Date of Service August 15, 2021 Assessment & Plan (1) Malaise: Plan: Danuta is a 40 yo woman with a PMHx of fibromyalgia and lupus who presented for general malaise and vomiting of 20 days duration. - etiology uncertain - WBC not elevated, CXR showing near total resolution of previous R lobar PNA - acute infection unlikely. No empiric antibiotics indicated. Follow blood cultures. - no evidence of anemia on cbc - CT abdomen and pelvis without acute pathology - I am skeptical IV Omnicef - the last dose of which was given on 08/13/21 - could still be causing her symptoms - as for her associated chronic pain, continue home regimen of gabapentin, baclofen. Lidoderm patch ordered. Tylenol 1g IV q8 prn. - pain management consulted for ongoing intractable, generalized pain (2) Vomiting: Plan: - etiology uncertain - CT abdomen and pelvis without acute pathology (per [facility]) - stool noted throughout bowel; scheduled miralax ordered - beta HGC ordered - UDS ordered (to screen for cyclical vomiting from THC) - continue home dose protonix - zofran prn (3) Elevated serum creatinine: Plan: - Cr elevated to 1.54 , BUN at 20 - baseline Cr < 1.0 - likely pre-renal etiology due to diminished PO intake and vomiting - NSS with Kcl ordered - avoid NSAIDs - trend BMP (4) Hypokalemia: Plan: - K at 3.1 on admission - check mag level - NSS with 20meQ Kcl - trend BMP (5) Hypothyroid: Plan: - continue home dose levothyroxine Diet: Regular Dvt ppx: heparin 5,000 units SQ BID Dispo: Med/surg Code: Full History of Present Illness Primary Care Provider: Matt Adame DO [place] is a 40 yo woman with a PMHx of fibromyalgia and lupus who presented to the [facility] ED for evaluation of general malaise and vomiting. Of note, she was admitted 07/18/21 to 07/26/21 for a R lobar PNA and bacteremia - she was discharged on an oral course of cefdinir and azithromycin. However, due to tolerability issues, she had a PICC line placed for IV therapy. She received 18 days of IV Omnicef - however this regimen had to be stopped short as well due to tolerability issues - Danuta reported an intense, burning pain throughout her body when the abx were infusing. She believes the abx were causing a flare of her lupus. Ever since leaving the hospital on 08/05/21, she says she "cannot do anything," noting that walking a short distance in her house causes "immense exhaustion and pain." She also has been having difficulty tolerating PO intake - she says she often vomits food/liquids up after consuming and endorses a subjective weight loss of 20 pounds over the past 20 days. She continues to experience pain in the area of the right lung, "where the pneumonia had been." She was seen by pain management in-house prior to her discharge on 08/05/21 for pain related to the antibiotics - for this she was given a 10 day supply of Oxycodone and Oxycontin. Since these scripts have now run out, she has been just using Aleve for pain management. She has been trialed on steroids in the past, but she says they do not provide her with any benefit. She denies any fevers, cough, or diarrhea. In the ED, she was afebrile with a normal HR, BP and breathing well on room air. Her WBC was normal. Her lactate was not elevated. Her COVID 19/ Flu/RSV swab was negative. Blood cultures were obtained. Her Cr was elevated to 1.54, BUN up to 20. K low at 3.1; electrolytes otherwise stable. CXR showing near total resolution of previous right lobar PNA. CT of abdomen and pelvis showing no ac [place] processes. She was given dilaudid 1mg, zofran, and 1 liter of NSS. Allergies Allergy/AdvReac Type Severity Reaction Status Date / Time dexamethasone Allergy Intermediate HIVES Verified 08/15/21 21:15 latex Allergy Intermediate HIVES Verified 08/15/21 21:15 pregabalin Allergy Intermediate FACE AND Verified 08/15/21 21:15 LIPS SWELLED Sulfa (Sulfonamide Allergy Intermediate LUPUS Verified 08/15/21 21:15 Antibiotics) FLARE UP morphine Allergy Mild local Verified 08/15/21 21:15 reaction at site duloxetine AdvReac Intermediate SEROTONIN Verified 08/15/21 21:15 SYNDROME escitalopram AdvReac Intermediate WENT CRAZY Verified 08/15/21 21:15 sertraline [From Zoloft] AdvReac Intermediate WENT CRAZY Verified 08/15/21 21:15 Home Medications Medication Instructions Recorded Confirmed Type levothyroxine 25 mcg tablet 25 mcg PO QAM 07/10/19 08/15/21 History gabapentin 300 mg capsule 900 mg PO TID #30 cap 08/30/20 08/15/21 Rx lubiprostone 24 mcg capsule 24 mcg PO BID 05/08/21 08/15/21 History (Amitiza) alprazolam 1 mg tablet 1 mg PO BID PRN 06/13/21 08/15/21 History baclofen 10 mg tablet 20 mg PO TID PRN tab 06/19/21 08/15/21 History carvedilol 12.5 mg tablet 12.5 mg PO BID 06/19/21 08/15/21 History clonidine HCl 0.1 mg tablet 0.1 mg PO DAILY PRN 07/12/21 08/15/21 History fluoxetine 20 mg capsule 40 mg PO QAM 07/12/21 08/15/21 History furosemide 20 mg tablet (Lasix) 20 mg PO QAM 07/12/21 08/15/21 History galcanezumab-gnlm 120 mg/mL 120 mg SUBCUT MO 07/12/21 08/15/21 History subcutaneous pen injector (Emgality Pen) metoprolol tartrate 50 mg tablet 50 mg PO QAM 07/12/21 08/15/21 History (Lopressor) Saccharomyces boulardii 250 mg 250 mg PO BID #20 cap 07/17/21 08/15/21 Rx capsule (Florastor) ondansetron 4 mg disintegrating 4 mg PO Q6H PRN #14 tab 07/17/21 08/15/21 Rx tablet New Anti Psycotic 1 tab PO DAILY 08/15/21 08/15/21 History pantoprazole 40 mg tablet,delayed 40 mg PO DAILY 08/15/21 08/15/21 History release (Protonix) Past Med/Surg History Medical History Abdominal pain Acute confusion Anxiety Chest pain Chronic pain syndrome Confusion Dehydration Depression Fibromyalgia Gastritis Gastroparesis Headache History of kidney infection History of lupus anticoagulant disorder History of migraine History of multiple miscarriages History of ovarian cyst History of umbilical hernia Hypertension Hypertensive urgency Hypothyroidism Intractable epigastric abdominal pain Lupus nephritis Osteoarthritis Peptic ulcer disease Pleuritis (09/17/14) history of Poorly-controlled hypertension Post traumatic stress disorder Pulmonary embolism history of Urinary tract infection Surgical History H/O: hysterectomy History of removal of Port-a-Cath (07/19/21) Infusaport Removal Dr. Adamson 07/19/2021 History of tonsillectomy and adenoidectomy Hx of appendectomy Hx of cholecystectomy Port-A-Cath in place (08/29/20) Mediport Placement, Left Subclavian Vein Dr. Garcia 08/29/2020 Family History Sister SLE (systemic lupus erythematosus) Family/Other SLE (systemic lupus erythematosus) maternal side Social History Smoking Status: Former smoker Tobacco Type: Cigarettes Age Started Using Tobacco: 23; Age Quit Using Tobacco: 39; Second Hand Exposure: No; Hx Alcohol Use: Yes Alcohol type: beer Hx Substance Use: No Preferred Language: Citizen [place] Communication Ability: Effective Planning Advisor Required: No Beliefs That Will Affect Care: None marital status: Single Current Living Situation: Spouse Current Living Situation Comment: Mickey current occupational status: employed 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 How many Children do You have: 1 Feels Safe at Home: Yes Safety Concerns: Feels Safe At This Time Assistive Devices: None Review of Systems Review of Systems: All systems reviewed & are unremarkable except as noted in HPI & below Physical Exam Constitutional: WD/WN, vitals as above cooperative; no acute distress Eyes: + anicteric sclerae ENMT: external ear and nose normal, oropharynx normal Neck: normal visual inspection and trachea midline Respiratory: normal respiratory effort, lungs clear to auscultation no cough Cardiovascular: RRR, no murmur, no edema Heart Sounds: normal S1 and normal S2 Extremities: no pedal edema Chest (Breasts): Chest: + vascular access device or port (PICC line left UE) Gastrointestinal (Abdomen): Inspection/Auscultation: abdomen normal to inspection and normal bowel sounds; abdomen not distended Percussion/Palpation: + abdomen tender (left lower quadrant) and abdomen soft; no guarding and no hepatosplenomegaly Musculoskeletal: Head/Neck/Chest: normocephalic and head atraumatic Skin: no rashes, warm and dry Neurologic: moves all extremities Psychiatric: A+Ox3, euthymic affect Results & Data Results & Data ([facility]) Vital Signs (Past 12 Hours) Vital Signs Temp Pulse Pulse Resp BP BP Pulse Ox 08/15/21 23:00 61 22 169/104 H 97 08/15/21 21:00 95 H 18 146/106 H 97 08/15/21 16:14 36.8 C 119 H 19 170/129 H 97 Supervising Physician Co-Signing Physician Notes Attending addendum: I have physically seen this patient, have supervised the medical residents activities, and agree with the H&P unless as otherwise noted. Assessment and Plan: Fibromyalgia flare/lupus/chronic pain syndrome- Most recent hospitalizations: 05/09-05/11, 05/16-05/18, 06/13-06/15, 07/12-07/17, and 07/18-07/26. Continue usual medications: Gabapentin, baclofen, Lidoderm patch Avoid any further narcotics, as patient has been given Dilaudid 1 mg IV by the ED We will consult pain management, who has seen her in the past. Tylenol 1 g IV every 8 hours as needed pain or fever Vomiting/constipation- Order urine drug screen to assess for possible cannabinoid hyperemesis syndrome Zofran 4 mg IV every 6 hours as needed Bowel regimen Acute kidney injury- Creatinine 1.54 upon admission, with baseline 0.87 Continue rehydration with IV fluids, normal saline, and follow laboratory serially Remaining orders and notations as noted Resident Activity Tracking Resident Involvement: Resident Care Provided Care Provided: Adult Hospital Medicine
[2021-08-16] MEDS ORDERED: ACETAMINOPHEN 1,000 MG/100 ML VIAL IV PRN (01:53)
[2021-08-16 02:05] LABS: Appearance Urine Clear (Clear); Bilirubin Urine Negative (Negative); Blood Urine Negative (Negative); Color Urine Yellow; Glucose Urine UA Negative (Negative); Ketones Urine Trace (Negative); Leukocyte Esterase Urine Negative (Negative); Nitrite Urine Negative (Negative); Protein Urine Negative (Negative); Specific Gravity Urine 1.023 (1.000-1.030); Urobilinogen Urine Negative (Negative)
[2021-08-16] MEDS ORDERED: KETOROLAC TROMETHAMINE 15 MG/ML VIAL IV ONE ×2 (02:15→13:04)
[2021-08-16] MEDS ORDERED: MELATONIN 3 MG TAB PO PRN (02:15)
[2021-08-16] MEDS: ONDANSETRON INJ 2 MG/ML 2 ML VIAL IV PRN ×2 (02:42→22:49)
[2021-08-16] MEDS: NSS + 20MEQ KCL 20 MEQ/1,000 ML BAG IV SCH ×2 (02:43→11:32)
[2021-08-16] MEDS: ACETAMINOPHEN 500 MG TAB PO PRN (03:46)
[2021-08-16] MEDS: BACLOFEN 20 MG TAB PO PRN (03:47)
[2021-08-16] MEDS: ALPRAZolam 0.5 MG TABLET PO PRN ×2 (03:51→19:51)
[2021-08-16] MEDS: LIDOCAINE 5% 1 PATCH TD SCH (04:01)
[2021-08-16 06:05] LABS: BUN Creatinine Ratio 16.1 (10-20); Calcium 8.3 mg/dl (8.5-10.1); Creatinine Clr Calc Pharmacy 60.3 ml/min; Est GFR (African American) 55.3 ml/min; Est GFR (Non-African American) 47.7 ml/min; Magnesium 1.9 mg/dl (1.8-2.4); Potassium 3.2 mmol/L (3.5-5.1)
[2021-08-16] MEDS: LEVOTHYROXINE SODIUM 25 MCG TABLET PO SCH (06:26)
--- NOTE | 2021-08-16 07:13 | Hospitalist Progress Note ---
Date of Service August 16, 2021 Assessment & Plan (1) Malaise: Plan: 40yo Female here with nonspecific pain, PMH fibromyalgia, presumed Lupus, opioid dependence, takotsubo cardiomyopathy, indwelling PICC line, HTN, peptic ulcer disease. Fibromyalgia - Patient has history of multiple ED encounters. - WBC not elevated, CXR showing near total resolution of previous R lobar PNA - acute infection unlikely. No empiric antibiotics indicated. Follow blood cultures. - no evidence of anemia on cbc - CT abdomen and pelvis without acute pathology - I am skeptical IV Omnicef - the last dose of which was given on 08/13/21 - could still be causing her symptoms - as for her associated chronic pain, continue home regimen of gabapentin, baclofen. - Lidoderm patch ordered. Tylenol 1g IV q8 prn. Toradol q6hr prn. Patient refused all options, stated they don't work on her - pain management consulted for ongoing intractable, generalized pain, unavailable over holiday -after long discussion with patient, will start oxycodone 5mg q6hr AND increase her fluoxetine from 40mg to 60mg, and her Brexpiprazole from 0.5mg to 1mg qhs. Have called her psychiatrist and updated her on the plan. She will receive no more than 1 week supply, contingent on her following with her PCP (2) Vomiting: - etiology uncertain - CT abdomen and pelvis: 1. No significant change compared 2 the prior study. No acute process within the abdomen or pelvis. 2. Prior cholecystectomy and appendectomy. 3. Slight decrease in size in the bilobed left adnexal/ovarian cyst. - scheduled miralax ordered - beta HGC ordered - UDS ordered (to screen for cyclical vomiting from THC) - still pending - continue home dose protonix - zofran prn, gave one dose compazine (3) Elevated serum creatinine: Plan: - Cr elevated to 1.54 , BUN at 20 - baseline Cr < 1.0 - likely pre-renal etiology due to diminished PO intake and vomiting - NSS with Kcl ordered - Last creat 1.38 (4) Hypokalemia: Plan: - K at 3.1 on admission - check mag level - NSS with 20meQ Kcl, repleted to 3.2 - trend BMP (5) Hypothyroid: Plan: - continue home dose levothyroxine Diet: Regular Dvt ppx: heparin 5,000 units SQ BID Dispo: Med/surg Code: Full (2) Vomiting: (3) Elevated serum creatinine: (4) Hypokalemia: (5) Hypothyroid: Admission and Anticipated Discharge Date Admission Date: August 15, 2021 Supervising Physician Co-Signing Physician Notes Attending attestation Pt seen and examined in concert with Dr. Reece. In agreement with the documented findings as noted in the resident documentation with any exceptions or additions as noted here. Patient resting comfortably in bed and difficult to awaken (though entirely appropriate while awakened). Still c/o diffuse pain - refusing foundational pain medications because 'they don't do anything' but reports that those stacked with roxicodone have previously improved symptoms. Reviewed in detail her current psychiatric regimen including fluoxetine 40mg and bexipreprazole 0.5mg qHS - purportedly trying to get in with pain management through her psychiatric group vs. palliative care. Open to adjusting those medications as a foundational change 'if it would help' and appears understanding when I discuss that using opiate medication as a temporizing measure can be dangerous. On examination, S1/S2 nl RRR no MCG. CTAB. Abd NT/ND BS+ve Intractable pain in the setting of fibromyalgia - pain management consult placed, unavailable at the stated number today station manager to office. After discussion of above, will reach out to psychiatry group to review increasing fluoxetine and bexipeprazole to see if impact on FMA/pain would be beneficial. For comfort, will start roxicodone and consider v. rare breakthrough morphine if needed to continue only through 5-7 days following discharge or per pain management recommendation or psychiatric input. Nausea - seems appropriate at time of examination, patient expresses concern re: being able to keep meds down. Will trial with premedication of ondansetron and monitor. Else see resident documentation as noted. Subjective 40yo Female here with nonspecific pain, PMH fibromyalgia, presumed Lupus, opioid dependence, takotsubo cardiomyopathy, indwelling PICC line, HTN, peptic ulcer disease. She states that she had a port due to having difficult veins, in 07/26 she was dc'd with abx after PNA, her port got infected, she was switched to a picc line. States her IV abx were extremely painful, made her lethargic, after her last dose abx 08/03 she continued to have pain, which she attributed to a flare of her presumed lupus. Patient saw pain management 08/05 who gave her 10 days oxycodone and oxycontin. She has since run out of opioids, states tylenol toradol steroids do nothing for her pain and actively refuses to use the medication, requests morphine q3hr, with oxycodone and toradol. Patient states she has been experiencing low grade fevers of 101-102, hemiplegic migraines, nausea/vomitting, pain on inspiration around her previous PNA infection, chest pain around her previous port site, diffuse abd pain, and constipation. She states her nausea has prevented her from eating the past 2 weeks and she lost 20lbs, states she has not been taking her medication the past few days. Patient states a solumedrol taper in the past has helped a bit. Medical marijuana has not worked well for her. Her rheumatology appointmetn in [facility]. She states she takes her medication regularly, no smoking, monthly alcohol, no prescription medication abuse or illicit drugs. She follows with [facility]diology, nephrology, psychiatry, PCP is Dr. Adame. Patient asked about getting into hospice for her chronic pain. Per Dr. Adame she routinely misses her PCP appointments due to admitting herself into the hospital. Review of Systems Review of Systems: see HPI Physical Exam Constitutional: WD/WN, vitals as above cooperative and + overweight Eyes: PERRL, conjunctivae normal, anicteric sclerae ENMT: No tonsils, no lymphadenopathy Neck: trachea midline, no thyromegaly Respiratory: normal respiratory effort, lungs clear to auscultation Cardiovascular: RRR, no murmur, no edema Heart Sounds: normal S1 and normal S2 Gastrointestinal (Abdomen): Inspection/Auscultation: abdomen normal to inspection; abdomen not distended Percussion/Palpation: + abdomen tender (epigastric) and abdomen soft Results & Data Results & Data ([facility]) Vital Signs (Past 12 Hours) Vital Signs Pulse Pulse Resp BP Pulse Ox Pulse Ox 08/16/21 06:27 65 20 158/95 H 08/16/21 04:31 57 L 17 122/59 L 98 08/16/21 03:51 98 08/16/21 03:00 53 L 18 161/96 H 98 08/16/21 01:59 69 23 97 08/16/21 01:30 64 19 184/120 H 100 08/15/21 23:00 61 22 169/104 H 97 08/15/21 21:00 95 H 18 146/106 H 97 Laboratory Results 08/16/21 08/16/21 08/16/21 Range/Units 05:17 05:17 01:49 WBC 5.34 (4.8-10.8) K/uL RBC 4.78 (4.2-5.4) M/uL Hgb 14.4 D (12.0-16.0) g/dL Hct 42.6 (37-47) % MCV 89.1 (80-100) fL MCH 30.1 (25-34) pg MCHC 33.8 (32-36) g/dL RDW Std Deviation 42.3 (36.4-46.3) fL RDW Coeff of Meg 13.0 (11.5-14.5) % Plt Count 240 (130-400) K/uL MPV 11.0 H (7.4-10.4) fL Immature Gran % (Auto) 0.2 % Neut % (Auto) 45.1 % Lymph % (Auto) 41.8 % Gray % (Auto) 8.8 % Eos % (Auto) 3.4 % Baso % (Auto) 0.7 % Neut # (Auto) 2.41 (1.4-6.5) K/uL Lymph # (Auto) 2.23 (1.2-3.4) K/uL Gray # (Auto) 0.47 (0.11-0.59) K/uL Eos # (Auto) 0.18 (0-0.5) K/uL Baso # (Auto) 0.04 (0-0.2) K/uL Immature Gran # (Auto) 0.01 (0.00-0.02) K/uL Sodium 139 (136-145) mmol/L Potassium 3.2 L (3.5-5.1) mmol/L Chloride 110 H (98-107) mmol/L Carbon Dioxide 24 (21-32) mmol/L Anion Gap 5.0 (3-11) BUN 22 H (7-18) mg/dl Creatinine 1.38 H (0.6-1.2) mg/dl Est Cr Clr Drug Dosing 60.3 ml/min Est GFR ( Amer) 55.3 ml/min Est GFR (Non-Af Amer) 47.7 ml/min BUN/Creatinine Ratio 16.1 (10-20) Glucose 108 H (70-99) mg/dl Calcium 8.3 L D (8.5-10.1) mg/dl Magnesium 1.9 (1.8-2.4) mg/dl Urine Color Yellow Urine Appearance Clear (Clear) Urine pH 5.0 (4.5-7.5) Ur Specific [place] 1.023 (1.000-1.030) Urine Protein Negative (Negative) Urine Glucose (UA) Negative (Negative) Urine Ketones Trace H (Negative) Urine Blood Negative (Negative) Urine Nitrite Negative (Negative) Urine Bilirubin Negative (Negative) Urine Urobilinogen Negative (Negative) Ur Leukocyte Esterase Negative (Negative) SARS-CoV-2 (PCR) (Negative) Influenza Type A (PCR) (Neg) Influenza Type B (PCR) (Neg) RSV (RT-PCR) (Neg) 08/15/21 Range/Units 20:07 WBC (4.8-10.8) K/uL RBC (4.2-5.4) M/uL Hgb (12.0-16.0) g/dL Hct (37-47) % MCV (80-100) fL MCH (25-34) pg MCHC (32-36) g/dL RDW Std Deviation (36.4-46.3) fL RDW Coeff of Meg (11.5-14.5) % Plt Count (130-400) K/uL MPV (7.4-10.4) fL Immature Gran % (Auto) % Neut % (Auto) % Lymph % (Auto) % Gray % (Auto) % Eos % (Auto) % Baso % (Auto) % Neut # (Auto) (1.4-6.5) K/uL Lymph # (Auto) (1.2-3.4) K/uL Gray # (Auto) (0.11-0.59) K/uL Eos # (Auto) (0-0.5) K/uL Baso # (Auto) (0-0.2) K/uL Immature Gran # (Auto) (0.00-0.02) K/uL Sodium (136-145) mmol/L Potassium (3.5-5.1) mmol/L Chloride (98-107) mmol/L Carbon Dioxide (21-32) mmol/L Anion Gap (3-11) BUN (7-18) mg/dl Creatinine (0.6-1.2) mg/dl Est Cr Clr Drug Dosing ml/min Est GFR ( Amer) ml/min Est GFR (Non-Af Amer) ml/min BUN/Creatinine Ratio (10-20) Glucose (70-99) mg/dl Calcium (8.5-10.1) mg/dl Magnesium (1.8-2.4) mg/dl Urine Color Urine Appearance (Clear) Urine pH (4.5-7.5) Ur Specific [place] (1.000-1.030) Urine Protein (Negative) Urine Glucose (UA) (Negative) Urine Ketones (Negative) Urine Blood (Negative) Urine Nitrite (Negative) Urine Bilirubin (Negative) Urine Urobilinogen (Negative) Ur Leukocyte Esterase (Negative) SARS-CoV-2 (PCR) NEGATIVE (Negative) Influenza Type A (PCR) Negative (Neg) Influenza Type B (PCR) Negative (Neg) RSV (RT-PCR) Negative (Neg) Diagnostic Findings Chest X-Ray 08/15/21 16:17 XR chest 1V portable CLINICAL HISTORY: recent pneumonia, cp, sob. COMPARISON STUDY: 07/21/2021 TECHNIQUE: 1 view of the chest FINDINGS: Single frontal view of the chest demonstrates the cardiomediastinal silhouette to be within normal limits. Compared to the previous examination, there has been almost complete resolution of right lung pneumonia. Only minimal residual alveolar opacity is seen. No new alveolar opacities are identified. There is no evidence for pleural effusion. There is no evidence for vascular congestion. There is no acute osseous pathology. IMPRESSION: Almost complete interval resolution of previously identified right lung pneumonia. No acute chest disease is seen. ACT 112: Negative or not required by law. Electronically signed by: Loki Harrell M.D. 08/15/2021 4:55 PM Abdomen/Pelvis CT 08/15/21 20:[address] WITHOUT CONTRAST CT DOSE: 600.88 mGy.cm HISTORY: Generalized abd pain, vomiting, elevate creat TECHNIQUE: Multiaxial CT images of the abdomen and pelvis were performed without contrast. A dose lowering technique was utilized adhering to the principles of ALARA. COMPARISON STUDY: Abdomen and pelvis CT 08/25/2020. FINDINGS: Severe disc space narrowing at L5-S1. Remaining disc spaces are preserved. The lung bases are clear. No pneumoperitoneum. No pneumatosis. No fractures within the visualized osseous structures. Hypodensity within segment IVb of the liver remains unchanged and favors focal fat. Prior cholecystectomy. The unenhanced spleen, adrenal glands, pancreas, and kidneys are unremarkable. No renal or ureteral stones. No hydronephrosis. The bladder is unremarkable. No pelvic free fluid. Suboptimal evaluation for bowel pathology due to the lack of intravenous and oral contrast. However, there is no definite bowel wall thickening or obstruction. Colonic diverticulosis. No evidence for acute diverticulitis. The appendix is not identified and likely surgically absent. Bilobed left adnexal/ovarian cyst have slightly decreased in size. Dominant cyst currently measures 3 cm. Normal caliber abdominal aorta. No retroperitoneal lymphadenopathy. IMPRESSION: 1. No significant change compared 2 the prior study. No acute process within the abdomen or pelvis. 2. Prior cholecystectomy and appendectomy. 3. Slight decrease in size in the bilobed left adnexal/ovarian cyst. ACT 112: Negative or not required by law. Electronically signed by: Abhijit De La Rosa M.D. 08/16/2021 8:30 AM Medications Administered Current Inpatient Medications Acetaminophen (Acetaminophen 500 Mg Tab) 1,000 mg PO Q8H PRN PRN Reason: Pain Stop: 09/15/21 02:07 Last Admin: 08/16/21 03:46 Dose: 1,000 mg Documented by: Alprazolam (Alprazolam 0.5 Mg Tablet) 1 mg PO BID PRN PRN Reason: Anxiety Stop: 09/15/21 01:52 Last Admin: 08/16/21 03:51 Dose: 1 mg Documented by: Baclofen (Baclofen 20 Mg Tab) 20 mg PO TID PRN PRN Reason: Muscle Spasm Stop: 09/15/21 01:52 Last Admin: 08/16/21 03:47 Dose: 20 mg Documented by: Carvedilol (Carvedilol 12.5 Mg Tab) 12.5 mg PO BID THAO Stop: 09/15/21 08:59 Last Admin: 08/16/21 09:18 Dose: 12.5 mg Documented by: Fluoxetine HCl (Fluoxetine Hcl 20 Mg Cap) 60 mg PO QAM [facility] Stop: 09/16/21 08:59 Furosemide (Furosemide 20 Mg Tab) 20 mg PO QAM [facility] Stop: 09/15/21 08:59 Last Admin: 08/16/21 09:19 Dose: 20 mg Documented by: Gabapentin (Gabapentin 300 Mg Cap) 900 mg PO TID [facility] Stop: 09/15/21 08:59 Last Admin: 08/16/21 18:20 Dose: 900 mg Documented by: Heparin Sodium (Porcine) (Heparin Sod 5,000 Unit/0.5 Ml Vial) 5,000 units SQ Q12 [facility] Stop: 09/15/21 08:59 Last Admin: 08/16/21 09:22 Dose: 5,000 units Documented by: Ketorolac Tromethamine (Ketorolac Tromethamine 15 Mg/Ml Vial) 15 mg IV Q6H PRN PRN Reason: Pain Stop: 08/21/21 18:31 Levothyroxine Sodium (Levothyroxine Sodium 25 Mcg Tablet) 25 mcg PO DAILYBB [facility] Stop: 09/15/21 06:29 Last Admin: 08/16/21 06:26 Dose: 25 mcg Documented by: Lidocaine (Lidocaine 5% 1 Patch) 1 patch TD QAM [facility] Stop: 09/15/21 02:14 Last Admin: 08/16/21 04:01 Dose: Not Given Documented by: Lubiprostone (Lubiprostone 8 Mcg Cap) 24 mcg PO BID [facility] Stop: 09/15/21 08:59 Last Admin: 08/16/21 09:20 Dose: 24 mcg Documented by: Melatonin (Melatonin 3 Mg Tab) 3 mg PO HS PRN PRN Reason: Sleep Stop: 09/15/21 02:14 Metoprolol Tartrate (Metoprolol Tartrate 50 Mg Tab) 50 mg PO QAM [facility] Stop: 09/15/21 08:59 Last Admin: 08/16/21 09:20 Dose: 50 mg Documented by: Miscellaneous (Remove Lidoderm Patch) 1 ea N/A DAILY@2100 [facility] Stop: 09/15/21 14:59 Last Admin: 08/16/21 18:15 Dose: Not Given Documented by: Ondansetron HCl (Ondansetron Inj 2 Mg/Ml 2 Ml Vial) 4 mg IV Q6H PRN PRN Reason: Nausea Stop: 09/15/21 01:52 Last Admin: 12/31/21 02:42 Dose: 4 mg Documented by: Oxycodone HCl (Oxycodone Hcl Ir 5 Mg Tab (Immediate Release)) 5 mg PO Q6 PRN PRN Reason: Pain Stop: 08/30/21 18:28 Pantoprazole Sodium (Pantoprazole 40 Mg Tab) 40 mg PO DAILY [facility] Stop: 09/15/21 08:59 Last Admin: 08/16/21 09:21 Dose: 40 mg Documented by: Polyethylene Glycol (Polyethylene (Miralax) 17 Gm Pack) 17 gm PO DAILY THAO Stop: 09/15/21 08:59 Last Admin: 08/16/21 09:21 Dose: 17 gm Documented by: Resident Activity Tracking Resident Involvement: Resident Care Provided Care Provided: Adult Hospital Medicine
--- NOTE | 2021-08-16 08:32 | CT Scan Report ---
ABDOMEN AND PELVIS CT WITHOUT CONTRAST CT DOSE: 600.88 mGy.cm HISTORY: Generalized abd pain, vomiting, elevate creat TECHNIQUE: Multiaxial CT images of the abdomen and pelvis were performed without contrast. A dose lo wering technique was utilized adhering to the principles of ALARA. COMPARISON STUDY: Abdomen and pelvis CT 08/25/2020. FINDINGS: Severe disc space narrowing at L5-S1. Remaining disc spaces are preserved. The lung bases a re clear. No pneumoperitoneum. No pneumatosis. No fractures within the visualized osseous structures. Hypodensity within segment IVb of the liver remains unchanged and favors focal fat. Prior cholecyste ctomy. The unenhanced spleen, adrenal glands, pancreas, and kidneys are unremarkable. No renal or ure teral stones. No hydronephrosis. The bladder is unremarkable. No pelvic free fluid. Suboptimal evalua tion for bowel pathology due to the lack of intravenous and oral contrast. However, there is no defin ite bowel wall thickening or obstruction. Colonic diverticulosis. No evidence for acute diverticuliti s. The appendix is not identified and likely surgically absent. Bilobed left adnexal/ovarian cyst hav e slightly decreased in size. Dominant cyst currently measures 3 cm. Normal caliber abdominal aorta. No retroperitoneal lymphadenopathy. IMPRESSION: 1. No significant change compared 2 the prior study. No acute process within the abdomen or pelvis. 2. Prior cholecystectomy and appendectomy. 3. Slight decrease in size in the bilobed left adnexal/ovarian cyst. ACT 112: Negative or not required by law. Electronically signed by: Abhijit De La Rosa M.D. 08/16/2021 8:30 AM
[2021-08-16] MEDS ORDERED: FLUoxetine HCL 20 MG CAP PO SCH (09:00)
[2021-08-16] MEDS: carvediloL 12.5 MG TAB PO SCH ×2 (09:18→21:51)
[2021-08-16] MEDS: GABAPENTIN 300 MG CAP PO SCH ×3 (09:19→21:50)
[2021-08-16] MEDS: FUROSEMIDE 20 MG TAB PO SCH (09:19)
[2021-08-16] MEDS: METOPROLOL TARTRATE 50 MG TAB PO SCH (09:20)
[2021-08-16] MEDS: LUBIPROSTONE 8 MCG CAP PO SCH ×2 (09:20→21:52)
[2021-08-16] MEDS: PANTOprazole 40 MG TAB PO SCH (09:21)
[2021-08-16] MEDS: POLYETHYLENE (MIRALAX) 17 GM PACK PO SCH (09:21)
[2021-08-16] MEDS: HEPARIN SOD 5,000 UNIT/0.5 ML VIAL SQ SCH ×2 (09:22→21:50)
[2021-08-16 09:59] LABS: Basophils # (auto) 0.04 K/uL (0-0.2); Basophils % (auto) 0.7 %; Eosinophils # (auto) 0.18 K/uL (0-0.5); Eosinophils % (auto) 3.4 %; Hematocrit (blood only) 42.6 % (37-47); Hemoglobin 14.4 g/dL (12.0-16.0); Immature Granulocytes # (auto) 0.01 K/uL (0.00-0.02); Immature Granulocytes % (auto) 0.2 %; Lymphocytes # (auto) 2.23 K/uL (1.2-3.4); Lymphocytes % (auto) 41.8 %; Mean Corpuscular Hemoglobin 30.1 pg (25-34); Mean Corpuscular Hgb Conc 33.8 g/dL (32-36); Mean Corpuscular Volume 89.1 fL (80-100); Monocytes # (auto) 0.47 K/uL (0.11-0.59); Monocytes % (auto) 8.8 %; Neutrophils # (auto) 2.41 K/uL (1.4-6.5); Neutrophils % (auto) 45.1 %; Platelet Count 240 K/uL (130-400); RDW Standard Deviation 42.3 fL (36.4-46.3); Red Blood Count 4.78 M/uL (4.2-5.4); White Blood Count 5.34 K/uL (4.8-10.8)
[2021-08-16] MEDS ORDERED: HYDROmorphone HCL 2 MG TAB PO ONE (11:33)
[2021-08-16] MEDS ORDERED: ACETAMINOPHEN 500 MG TAB PO ONE (13:05)
[2021-08-16] MEDS ORDERED: PROCHLORPERAZINE MALEATE 5 MG TAB PO ONE (18:45)
[2021-08-16] MEDS: oxyCODONE HCL IR 5 MG TAB (IMMEDIATE RELEASE) PO PRN (19:52)
[2021-08-16 20:16] LABS: Pregnancy Test, Urine Negative (Negative)
[2021-08-16 20:37] LABS: Amphetamines+Metham, Urine Neg (Neg); Barbiturates, Urine Neg (Neg); Benzodiazepine, Urine Pos (Neg); Cocaine, Urine Neg (Neg); MDMA (Ecstacy), Urine Neg (Neg); Methadone, Urine Neg (Neg); Opiate, Urine Neg (Neg); Phencyclidine, Urine Neg (Neg)
[2021-08-16] MEDS ORDERED: MoRPHine SULFATE 2 MG/ML CARP IV STA (21:17)
--- NOTE | 2021-08-17 00:04 | XRay Report ---
KUB CLINICAL HISTORY: Left lower quadrant abdominal pain. FINDINGS: 2 AP supine abdominal radiographs are compared to study dated 10/12/2020 and correlated with abdominal CT dated 08/15/2021. There is a nonobstructed abdominal bowel gas pattern. No evidence of intraperitoneal free air is seen on this supine examination. Cholecystectomy clips are seen in the ri ght upper quadrant. There are no abnormal abdominal calcifications. Phleboliths are noted in the pelv is. The bony structures appear intact. IMPRESSION: No acute abnormality is identified. Electronically signed by: Abel Aragon M.D. 08/17/2021 12:02 AM
--- NOTE | 2021-08-17 04:14 | Billing Data ---
Date of Service August 17, 2021 Coding Level of Care Code INT OBSERVATION CARE 70M LVL 3
[2021-08-17] MEDS: oxyCODONE HCL IR 5 MG TAB (IMMEDIATE RELEASE) PO PRN ×3 (05:57→20:14)
[2021-08-17] MEDS: LEVOTHYROXINE SODIUM 25 MCG TABLET PO SCH (05:57)
[2021-08-17] MEDS: ALPRAZolam 0.5 MG TABLET PO PRN ×3 (06:05→20:13)
[2021-08-17 06:14] LABS: Basophils # (auto) 0.03 K/uL (0-0.2); Basophils % (auto) 0.7 %; Eosinophils # (auto) 0.17 K/uL (0-0.5); Hematocrit (blood only) 39.7 % (37-47); Immature Granulocytes # (auto) 0.01 K/uL (0.00-0.02); Immature Granulocytes % (auto) 0.2 %; Lymphocytes # (auto) 1.91 K/uL (1.2-3.4); Lymphocytes % (auto) 44.5 %; Mean Corpuscular Hemoglobin 29.8 pg (25-34); Mean Corpuscular Hgb Conc 32.7 g/dL (32-36); Mean Corpuscular Volume 91.1 fL (80-100); Mean Platelet Volume 10.6 fL (7.4-10.4); Monocytes # (auto) 0.27 K/uL (0.11-0.59); Monocytes % (auto) 6.3 %; Neutrophils % (auto) 44.3 %; Platelet Count 199 K/uL (130-400); RDW Coefficient of Variation 13.1 % (11.5-14.5); Red Blood Count 4.36 M/uL (4.2-5.4); White Blood Count 4.29 K/uL (4.8-10.8)
[2021-08-17 06:52] LABS: BUN Creatinine Ratio 14.2 (10-20); Calcium 8.4 mg/dl (8.5-10.1); Creatinine Clr Calc Pharmacy 96.8 ml/min; Est GFR (African American) 97.9 ml/min; Est GFR (Non-African American) 84.5 ml/min; Potassium 3.7 mmol/L (3.5-5.1)
[2021-08-17] MEDS: LIDOCAINE 5% 1 PATCH TD SCH (08:21)
[2021-08-17] MEDS: HEPARIN SOD 5,000 UNIT/0.5 ML VIAL SQ SCH ×2 (08:22→20:20)
[2021-08-17] MEDS: METOPROLOL TARTRATE 50 MG TAB PO SCH (08:22)
[2021-08-17] MEDS: GABAPENTIN 300 MG CAP PO SCH ×3 (08:23→20:19)
[2021-08-17] MEDS: LUBIPROSTONE 8 MCG CAP PO SCH ×2 (08:23→20:18)
[2021-08-17] MEDS: carvediloL 12.5 MG TAB PO SCH ×2 (08:23→20:19)
[2021-08-17] MEDS: PANTOprazole 40 MG TAB PO SCH (08:24)
[2021-08-17] MEDS: POLYETHYLENE (MIRALAX) 17 GM PACK PO SCH (08:25)
[2021-08-17] MEDS ORDERED: FLUoxetine HCL 20 MG CAP PO SCH ×2 (09:00)
[2021-08-17] MEDS: KETOROLAC TROMETHAMINE 15 MG/ML VIAL IV PRN ×3 (09:10→20:30)
[2021-08-17] MEDS: ONDANSETRON INJ 2 MG/ML 2 ML VIAL IV PRN ×2 (09:18→20:13)
--- NOTE | 2021-08-17 10:23 | Electrocardiogram Report ---
Test Reason : Blood Pressure : / mmHG Vent. Rate : 107 BPM Atrial Rate : 107 BPM P-R Int : 146 ms QRS Dur : 078 ms QT Int : 374 ms P-R-T Axes : 066 054 056 degrees QTc Int : 499 ms Sinus tachycardia Right atrial enlargement Nonspecific ST abnormality Abnormal ECG When compared with ECG of 18-JUL-2021 16:33, Non-specific change in ST segment in Inferior leads Confirmed by Dilip Cuevas ([id number]) on 08/17/2021 10:22:54 AM Referred By: REFERRED SELF Confirmed By:Dilip Cuevas
[2021-08-17] MEDS: FUROSEMIDE 20 MG TAB PO SCH (12:01)
[2021-08-17] MEDS: ACETAMINOPHEN 500 MG TAB PO PRN ×2 (13:09→23:16)
[2021-08-17] MEDS ORDERED: FLUoxetine HCL 20 MG CAP PO ONE (13:11)
[2021-08-17] MEDS ORDERED: oxyCODONE HCL IR 5 MG TAB (IMMEDIATE RELEASE) PO STA (15:36)
--- NOTE | 2021-08-17 19:03 | Hospitalist Progress Note ---
Date of Service August 17, 2021 Assessment & Plan (1) Malaise: Plan: 40yo Female here with nonspecific pain, PMH fibromyalgia, presumed Lupus, opioid dependence, takotsubo cardiomyopathy, indwelling PICC line, HTN, peptic ulcer disease. Fibromyalgia - Patient has history of multiple ED encounters. - WBC not elevated, CXR showing near total resolution of previous R lobar PNA - acute infection unlikely. No empiric antibiotics indicated. Follow blood cultures. - no evidence of anemia on cbc - CT abdomen and pelvis without acute pathology - as for her associated chronic pain, continue home regimen of gabapentin, baclofen. - Lidoderm patch ordered. Tylenol 1g IV q8 prn. Toradol q6hr prn. Patient refused all options, stated they don't work on her - pain management consulted for ongoing intractable, generalized pain, unavailable over holiday -after long discussion with patient, will start oxycodone 5mg q6hr AND increase her fluoxetine from 40mg to 60mg, and her Brexpiprazole from 0.5mg to 1mg qhs. Have called her psychiatrist and updated her on the plan. She will receive no more than 1 week supply, contingent on her following with her PCP -Patient received 5 mg p.o. Roxicodone with Toradol, per agreement with Dr. Ryan. Patient continued to complain of pain after Roxicodone. Increased Roxicodone dose to 7.5 mg every 6 hours. -Plan to reassess pain status in the morning. If still complaining of pain, will increase to 10 mg Roxicodone every 6 and likely discharge on a week supply. (2) Vomiting: - etiology uncertain - CT abdomen and pelvis: 1. No significant change compared 2 the prior study. No acute process within the abdomen or pelvis. 2. Prior cholecystectomy and appendectomy. 3. Slight decrease in size in the bilobed left adnexal/ovarian cyst. - scheduled miralax ordered - beta HGC ordered - UDS ordered (to screen for cyclical vomiting from THC) - still pending - continue home dose protonix - zofran prn (3) Elevated serum creatinine: Plan: - Cr elevated to 1.54 , BUN at 20 - baseline Cr < 1.0 - likely pre-renal etiology due to diminished PO intake and vomiting - NSS with Kcl ordered - Last creat 1.38 (4) Hypokalemia: Plan: - K at 3.1 on admission - check mag level - NSS with 20meQ Kcl, repleted to 3.2 - trend BMP (5) Hypothyroid: Plan: - continue home dose levothyroxine Diet: Regular Dvt ppx: heparin 5,000 units SQ BID Dispo: Med/surg Code: Full (2) Vomiting: (3) Elevated serum creatinine: (4) Hypokalemia: (5) Hypothyroid: Plan: Attending attestation Pt seen and examined in concert with Dr. Barroso. In agreement with the documented findings as noted in the resident documentation with any exceptions or additions as noted here. Patient resting comfortably in bed and difficult to awaken (though entirely appropriate while awakened). Continues to c/o diffuse pain - still refusing foundational pain medications. Extensive review of the interplay between medications and conditions for anxiety and pain from FMA and inflammation. On examination, S1/S2 nl RRR no MCG. CTAB. Abd NT/ND BS+ve Intractable pain in the setting of fibromyalgia - pain management consult placed, unavailable at the stated number today budget consultant to office. Msg left for patient psychiatrist by resident. increase fluoxetine to 60mg and will increase bexipeprazole to 1mg if able. Gradual increase of PO roxicodone and cap at 10mg q6h Nausea - improved, continue ondansetron PRN Else see resident documentation as noted. 35 minutes of face to face time spent with this patient reviewing the interplay with her conditions as noted above, as well as the rationale behind avoiding IV opioid medications and combining them with alprazolam, as well as the need to coordinate outpatient PCP and psychaitry and pain mgmt. Admission and Anticipated Discharge Date Admission Date: August 15, 2021 Subjective Patient resting in bed comfortably. She complains of severe abdominal pain, localizing it to her substernal midepigastric region. She also complains of diffuse body pain. Per nursing, she refused Toradol for her stated pain this morning, insisting on taking it with an additional dose of oxycodone. Review of Systems Review of Systems: All systems reviewed & are unremarkable except as noted in HPI & below Physical Exam Constitutional: WD/WN, vitals as above Respiratory: normal respiratory effort, lungs clear to auscultation Cardiovascular: RRR, no murmur, no edema Gastrointestinal (Abdomen): normal bowel sounds, soft, nontender, no hepatosplenomegaly Percussion/Palpation: no guarding Results & Data Results & Data ([facility]) Vital Signs (Past 12 Hours) Vital Signs Temp Pulse Resp BP Pulse Ox Pulse Ox 08/17/21 15:25 36.7 C 64 18 89/55 L 98 08/17/21 09:00 96 08/17/21 07:15 36.6 C 69 18 100/66 98 Resident Activity Tracking Resident Involvement: Resident Care Provided Care Provided: Adult Hospital Medicine
[2021-08-18] MEDS: oxyCODONE HCL IR 5 MG TAB (IMMEDIATE RELEASE) PO PRN ×4 (02:05→22:26)
[2021-08-18] MEDS: ONDANSETRON INJ 2 MG/ML 2 ML VIAL IV PRN ×3 (02:07→16:14)
[2021-08-18] MEDS: KETOROLAC TROMETHAMINE 15 MG/ML VIAL IV PRN ×4 (02:07→22:26)
--- NOTE | 2021-08-18 07:37 | Hospitalist Progress Note ---
Date of Service August 18, 2021 Assessment & Plan (1) Malaise: Plan: 40yo Female here with nonspecific pain, PMH fibromyalgia, presumed Lupus, opioid dependence, takotsubo cardiomyopathy, indwelling PICC line, HTN, peptic ulcer disease. Fibromyalgia - Patient has history of multiple ED encounters. - WBC not elevated, CXR showing near total resolution of previous R lobar PNA - acute infection unlikely. No empiric antibiotics indicated. Follow blood cultures. - no evidence of anemia on cbc - CT abdomen and pelvis without acute pathology - as for her associated chronic pain, continue home regimen of gabapentin, baclofen. - Lidoderm patch ordered. Tylenol 1g IV q8 prn. Toradol q6hr prn. Patient refused all options, stated they don't work on her - pain management consulted for ongoing intractable, generalized pain, unavailable over holiday -after long discussion with patient, will start oxycodone 5mg q6hr AND increase her fluoxetine from 40mg to 60mg, and her Brexpiprazole from 0.5mg to 1mg qhs. Have called her psychiatrist and updated her on the plan. She will receive no more than 1 week supply, contingent on her following with her PCP -Patient received 5 mg p.o. Roxicodone with Toradol, per agreement with Dr. Ryan. Patient continued to complain of pain after Roxicodone. Increased Roxicodone dose to 7.5 mg every 6 hours. -After assessment of pain this morning, patient's Roxicodone dose increased to 10 mg as needed every 6 hours. Patient was continue to take foundational analgesics first. (2) Vomiting: - etiology uncertain - CT abdomen and pelvis: 1. No significant change compared 2 the prior study. No acute process within the abdomen or pelvis. 2. Prior cholecystectomy and appendectomy. 3. Slight decrease in size in the bilobed left adnexal/ovarian cyst. - scheduled miralax ordered - beta HGC ordered - UDS ordered (to screen for cyclical vomiting from THC) - still pending - continue home dose protonix - zofran prn (3) Elevated serum creatinine: Plan: - Cr elevated to 1.54 , BUN at 20 - baseline Cr < 1.0 - likely pre-renal etiology due to diminished PO intake and vomiting - NSS with Kcl ordered -Creatinine now 1.15, down from 1.38 -Consider resolved. (4) Hypokalemia: Plan: - K at 3.1 on admission - check mag level - NSS with 20meQ Kcl, repleted to 3.2 - trend BMP, replete as needed. (5) Hypothyroid: Plan: - continue home dose levothyroxine (6) Abdominal discomfort/dysmotility -Patient started on Reglan, senna -Reassess in the morning. Diet: Regular Dvt ppx: heparin 5,000 units SQ BID Dispo: Med/surg Code: Full (2) Vomiting: (3) Elevated serum creatinine: (4) Hypokalemia: (5) Hypothyroid: Plan: Attending attestation Pt seen and examined in concert with Dr. Barroso. In agreement with the documented findings as noted in the resident documentation with any exceptions or additions as noted here. Patient resting comfortably in bed and difficult to awaken (though entirely appropriate while awakened). Continues to c/o diffuse pain - still refusing foundational pain medications. Extensive review of the interplay between medications and conditions for anxiety and pain from FMA and inflammation. On examination, S1/S2 nl RRR no MCG. CTAB. 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 Msg left for patient psychiatrist by resident. increase fluoxetine to 60mg and will increase bexipeprazole to 1mg if able. Gradual increase of PO roxicodone and cap at 10mg q6h Nausea - improved, continue ondansetron PRN Else see resident documentation as noted. 35 minutes of face to face time spent with this patient reviewing the interplay with her conditions as noted above, as well as the rationale behind avoiding IV opioid medications and combining them with alprazolam, as well as the need to coordinate outpatient PCP and psychaitry and pain mgmt. Admission and Anticipated Discharge Date Admission Date: August 15, 2021 Supervising Physician Co-Signing Physician Notes Attending attestation Pt seen and examined in concert with Dr. Barroso. In agreement with the documented findings as noted in the resident documentation with any exceptions or additions as noted here. Patient resting comfortably in bed, easily aroused. Continues to c/o diffuse pain which 'has the edge off' on current APAP/Toradol/Roxicodone 10mg regimen. Now also c/o abdominal cramping/discomfort attributed to intermittent gastroparesis symptoms. Per her, usually has 2-3 days of diarrhea (last 2 of that) and then has cramping abdominal pain with constipation, where we may be now. Taking amitiza and linzess for this. On examination, S1/S2 nl RRR no MCG. CTAB. Abd NT/ND BS+ve Intractable pain in the setting of fibromyalgia - pain management consult placed, unavailable until Thursday. Msg left for patient psychiatrist by resident. Tolerating fluoxetine 60mg and rec'd increase bexipeprazole to 1mg when able. See below for management of concomitant GI/abd pain complaint. Continue (and encourage) APAP/toradol/roxicodone approach and strongly encourage PCP follow up and coordination of plan. Acute on chronic abdominal discomfort in the setting of gastroparesis with intermittent nausea - discussion with patient new, additional complaint. Likely related to exacerbation from narcotic medications based on timing. Added reglan and senna to current regimen to trial for improvement in the setting of gastroparesis meds with close surveillance. If tolerating POI and pain tolerable in AM, consider dispo. Else see resident documentation as noted. 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 Subjective Overnight: Patient made multiple complaints to nursing about generalized aches and pains, which she rated as 9/10 pain. This morning, she reports that Roxicodone at 7.5 mg did not relieve her pain or have any analgesic effect different from the 5 mg dose. She is also complaining of "gastroparesis." Review of Systems Review of Systems: All systems reviewed & are unremarkable except as noted in HPI & below Physical Exam Constitutional: WD/WN, vitals as above Respiratory: normal respiratory effort, lungs clear to auscultation Cardiovascular: RRR, no murmur, no edema Gastrointestinal (Abdomen): normal bowel sounds, soft, nontender, no hepatosplenomegaly Resident Activity Tracking Resident Involvement: Resident Care Provided Care Provided: [facility]
[2021-08-18] MEDS: POLYETHYLENE (MIRALAX) 17 GM PACK PO SCH (09:17)
[2021-08-18] MEDS: GABAPENTIN 300 MG CAP PO SCH ×3 (09:18→20:03)
[2021-08-18] MEDS: PANTOprazole 40 MG TAB PO SCH (09:18)
[2021-08-18] MEDS: FLUoxetine HCL 20 MG CAP PO SCH (09:18)
[2021-08-18] MEDS: HEPARIN SOD 5,000 UNIT/0.5 ML VIAL SQ SCH ×2 (09:18→20:02)
[2021-08-18] MEDS: LUBIPROSTONE 8 MCG CAP PO SCH ×2 (09:18→20:02)
[2021-08-18] MEDS: FUROSEMIDE 20 MG TAB PO SCH (09:18)
[2021-08-18] MEDS: METOPROLOL TARTRATE 50 MG TAB PO SCH (09:18)
[2021-08-18] MEDS: LIDOCAINE 5% 1 PATCH TD SCH (09:19)
[2021-08-18] MEDS: LEVOTHYROXINE SODIUM 25 MCG TABLET PO SCH (09:19)
[2021-08-18] MEDS: carvediloL 12.5 MG TAB PO SCH ×2 (09:19→20:03)
[2021-08-18] MEDS: ALPRAZolam 0.5 MG TABLET PO PRN ×2 (10:01→22:23)
[2021-08-18] MEDS: METOCLOPRAMIDE HCL 5 MG TABLET PO SCH ×2 (15:20→22:21)
[2021-08-18 15:48] LABS: Basophils # (auto) 0.03 K/uL (0-0.2); Basophils % (auto) 0.7 %; Eosinophils # (auto) 0.24 K/uL (0-0.5); Eosinophils % (auto) 5.6 %; Hematocrit (blood only) 38.5 % (37-47); Hemoglobin 12.6 g/dL (12.0-16.0); Lymphocytes % (auto) 46.3 %; Mean Corpuscular Hemoglobin 29.5 pg (25-34); Mean Corpuscular Hgb Conc 32.7 g/dL (32-36); Mean Corpuscular Volume 90.2 fL (80-100); Mean Platelet Volume 10.7 fL (7.4-10.4); Monocytes % (auto) 9.3 %; Neutrophils # (auto) 1.65 K/uL (1.4-6.5); Neutrophils % (auto) 38.1 %; Platelet Count 194 K/uL (130-400); RDW Standard Deviation 42.6 fL (36.4-46.3); Red Blood Count 4.27 M/uL (4.2-5.4); White Blood Count 4.32 K/uL (4.8-10.8)
[2021-08-18 16:08] LABS: BUN Creatinine Ratio 10.8 (10-20); Calcium 7.8 mg/dl (8.5-10.1); Creatinine Clr Calc Pharmacy 72.4 ml/min; Est GFR (African American) 68.9 ml/min; Est GFR (Non-African American) 59.5 ml/min; Potassium 3.5 mmol/L (3.5-5.1)
[2021-08-18] MEDS: ACETAMINOPHEN 500 MG TAB PO PRN (20:08)
[2021-08-18] MEDS: BREXPIPRAZOLE 1 MG PO SCH (22:21)
[2021-08-19] MEDS: oxyCODONE HCL IR 5 MG TAB (IMMEDIATE RELEASE) PO PRN ×2 (06:03→12:16)
[2021-08-19] MEDS: LEVOTHYROXINE SODIUM 25 MCG TABLET PO SCH (06:03)
[2021-08-19] MEDS: METOCLOPRAMIDE HCL 5 MG TABLET PO SCH ×3 (06:03→22:46)
[2021-08-19] MEDS: KETOROLAC TROMETHAMINE 15 MG/ML VIAL IV PRN ×2 (06:03→12:18)
[2021-08-19 08:04] LABS: Hematocrit (blood only) 38.6 % (37-47); Hemoglobin 12.6 g/dL (12.0-16.0); Mean Corpuscular Hemoglobin 29.9 pg (25-34); Mean Corpuscular Hgb Conc 32.6 g/dL (32-36); Mean Corpuscular Volume 91.5 fL (80-100); Mean Platelet Volume 11.2 fL (7.4-10.4); Platelet Count 189 K/uL (130-400); RDW Standard Deviation 43.6 fL (36.4-46.3); Red Blood Count 4.22 M/uL (4.2-5.4); White Blood Count 3.98 K/uL (4.8-10.8)
--- NOTE | 2021-08-19 08:07 | Hospitalist Progress Note ---
Date of Service August 19, 2021 Assessment & Plan (1) Malaise: Plan: 40yo Female here with nonspecific pain, PMH fibromyalgia, presumed Lupus, opioid dependence, takotsubo cardiomyopathy, indwelling PICC line, HTN, peptic ulcer disease. Fibromyalgia - Patient has history of multiple ED encounters. - WBC not elevated, CXR showing near total resolution of previous R lobar PNA - acute infection unlikely. No empiric antibiotics indicated. Follow blood cultures. - no evidence of anemia on cbc - CT abdomen and pelvis without acute pathology - as for her associated chronic pain, continue home regimen of gabapentin, baclofen. - Lidoderm patch ordered. Tylenol 1g IV q8 prn. Toradol q6hr prn. - pain management consulted. -Changed roxycodone 10mg to Nucynta q6h. -If patient still in pain or breakthrough pain, can try Nucynta q4h. -Patient with increase in fluoxetine from 40mg to 60mg, and her Brexpiprazole from 0.5mg to 1mg qhs. -Reassess in the AM. (2) Vomiting: - etiology uncertain - CT abdomen and pelvis unremarkable. - scheduled miralax ordered - beta HGC negative. - UDS ordered THC negative, most likely not cyclical vomiting disorder. - continue home dose protonix - zofran prn (3) Elevated serum creatinine: Plan: - Cr elevated to 1.54 , BUN at 20 - baseline Cr < 1.0 - likely pre-renal etiology due to diminished PO intake and vomiting - NSS with Kcl ordered -Creatinine now 1.13, down from 1.38 -Consider resolved. (4) Hypokalemia: Plan: - K at 3.1 on admission - check mag level - NSS with 20meQ Kcl, repleted to 3.7 - trend BMP, replete as needed. (5) Hypothyroid: Plan: - continue home dose levothyroxine (6) Abdominal discomfort/dysmotility -Patient started on Reglan, senna. Miralax BID -KUB 08/19: nonobstructive bowel gas pattern. Moderate stool burden. -Reassess in the morning. Diet: Regular Dvt ppx: heparin 5,000 units SQ BID Dispo: Med/surg Code: Full (2) Vomiting: (3) Elevated serum creatinine: (4) Hypokalemia: (5) Hypothyroid: Plan: Attending attestation Pt seen and examined in concert with Dr. Barroso. In agreement with the documented findings as noted in the resident documentation with any exceptions or additions as noted here. Patient resting comfortably in bed and difficult to awaken (though entirely appropriate while awakened). Continues to c/o diffuse pain - still refusing foundational pain medications. Extensive review of the interplay between medications and conditions for anxiety and pain from FMA and inflammation. On examination, S1/S2 nl RRR no MCG. CTAB. 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 Msg left for patient psychiatrist by resident. increase fluoxetine to 60mg and will increase bexipeprazole to 1mg if able. Gradual increase of PO roxicodone and cap at 10mg q6h Nausea - improved, continue ondansetron PRN Else see resident documentation as noted. 35 minutes of face to face time spent with this patient reviewing the interplay with her conditions as noted above, as well as the rationale behind avoiding IV opioid medications and combining them with alprazolam, as well as the need to coordinate outpatient PCP and psychaitry and pain mgmt. Admission and Anticipated Discharge Date Admission Date: August 18, 2021 Supervising Physician Co-Signing Physician Notes Attending attestation Pt seen and examined in concert with Dr. Lockhart. In agreement with the documented findings as noted in the resident documentation with any exceptions or additions as noted here. Patient resting comfortably in bed, Feels she is improved with Nucynta, but is concerned that Q6H may not be enough. On examination, S1/S2 nl RRR no MCG. CTAB. Abd NT/ND BS+ve Intractable pain in the setting of fibromyalgia - pain management consult placed, appreciate input. placed on Nucynta. Tolerating fluoxetine 60mg and rec'd increase bexipeprazole to 1mg when able. See below for management of concomitant GI/abd pain complaint. strongly encourage PCP follow up and coordination of plan. Acute on chronic abdominal discomfort in the setting of gastroparesis with inter mittent nausea - discussion with patient new, additional complaint. Likely related to exacerbation from narcotic medications based on timing. Added reglan and senna to current regimen to trial for improvement in the setting of gastroparesis meds with close surveillance. If tolerating POI and pain tolerable in AM, consider dispo. Else see resident documentation as noted. Subjective Patient seen at the bedside this morning. Patient complained of pain a few hours after getting roxycodone, tramadol, and tylenol regimen. Patient has increased pain in the upper and lateral abdomen. She also has a history of constipation and bowel dysmotility. Last bowel movement was 2 days ago which was diarrhea in nature. Usually has bowel movements every 3-4 days if on miralax regimen. Denies fevers, chills, nausea, vomiting. Review of Systems Review of Systems: All systems reviewed & are unremarkable except as noted in HPI & below Physical Exam Constitutional: WD/WN, vitals as above Respiratory: normal respiratory effort, lungs clear to auscultation Cardiovascular: RRR, no murmur, no edema Gastrointestinal (Abdomen): BS+, tenderness to palpation along upper and lateral aspects of abdomen. Non-distended. Results & Data Results & Data ([facility]) Vital Signs (Past 12 Hours) Vital Signs Temp Pulse Resp BP Pulse Ox 08/19/21 07:59 36.5 C 55 L 16 100/59 L 99 Resident Activity Tracking Resident Involvement: Resident Care Provided Care Provided: Adult Hospital Medicine
[2021-08-19 08:22] LABS: Basophils # (auto) 0.03 K/uL (0-0.2); Basophils % (auto) 0.8 %; Eosinophils # (auto) 0.28 K/uL (0-0.5); Immature Granulocytes # (auto) 0.01 K/uL (0.00-0.02); Immature Granulocytes % (auto) 0.3 %; Lymphocytes % (auto) 50.3 %; Monocytes # (auto) 0.37 K/uL (0.11-0.59); Monocytes % (auto) 9.3 %; Neutrophils # (auto) 1.29 K/uL (1.4-6.5); Neutrophils % (auto) 32.3 %
[2021-08-19] MEDS: FLUoxetine HCL 20 MG CAP PO SCH (08:59)
[2021-08-19] MEDS: FUROSEMIDE 20 MG TAB PO SCH (08:59)
[2021-08-19] MEDS: carvediloL 12.5 MG TAB PO SCH ×3 (08:59→20:36)
[2021-08-19] MEDS: PANTOprazole 40 MG TAB PO SCH (09:00)
[2021-08-19] MEDS: GABAPENTIN 300 MG CAP PO SCH ×3 (09:01→20:36)
[2021-08-19] MEDS: METOPROLOL TARTRATE 50 MG TAB PO SCH (09:02)
[2021-08-19] MEDS: HEPARIN SOD 5,000 UNIT/0.5 ML VIAL SQ SCH ×2 (09:02→20:38)
[2021-08-19] MEDS: SENNOSIDES 8.8 MG/5 ML UDC PO SCH (09:03)
[2021-08-19] MEDS: LIDOCAINE 5% 1 PATCH TD SCH (09:05)
[2021-08-19] MEDS: POLYETHYLENE (MIRALAX) 17 GM PACK PO SCH ×2 (09:11→20:33)
[2021-08-19 09:31] LABS: BUN Creatinine Ratio 11.5 (10-20); Calcium 8.6 mg/dl (8.5-10.1); Creatinine Clr Calc Pharmacy 73.7 ml/min; Est GFR (African American) 70.4 ml/min; Est GFR (Non-African American) 60.7 ml/min; Potassium 3.7 mmol/L (3.5-5.1)
[2021-08-19] MEDS: LUBIPROSTONE 8 MCG CAP PO SCH ×2 (10:25→20:35)
[2021-08-19] MEDS: ALPRAZolam 0.5 MG TABLET PO PRN ×2 (10:27→20:33)
--- NOTE | 2021-08-19 13:06 | Pain Management Consultation ---
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 As the patient denies any significant pain relief with Oxycodone 10mg x 6 hours as currently prescribed we have discussed switching over to a different medication. She was switched to Nucynta IR 50mg x 6 hours PRN pain. Side effect profile was reviewed. 2. Nucynta may need further titration pending patient's response to the medication. 3. Continue Toradol and Tylenol. 4. Baclofen 20mg TID PRN and Gabapentin 900mg TID. 5. Not a candidate for interventional procedures. 6. I have emphasized the importance of getting involved with a Methadone or pain clinic as these frequent hospitalizations cannot continue to happen and she is understanding. History of Present Illness Attending Physician: Oswaldo Waters History of Present Illness Ms. Rader is a 40 year old female with a significant history of chronic pain syndrome, depression, fibromyalgia, gastroparesis, lupus, migraines, hypertension, pleuritis, pulmonary embolism, and recent right lower lobe pneumonia. Currently admitted for dehydration, subjective 20 lb weight loss. She felt as if the IV antibiotics "flared up" her lupus which is causing diffuse pain all over her body. Patient has been admitted 6 times over the last 3 months with complaints including nausea, vomiting, gastroparesis, and pain. On the most recent discharge on 07/26/21 she was placed on OxyContin 10mg BID and Oxycodone 15mg x 4 hours. She finished the pain medications and discontinued the IV antibiotics early. Since then she continues to report diffuse pains. Tylenol and Ibuprofen not providing any significant relief. She has been titrated on Oxycodone from 5mg to now 10mg and states that the medication is not providing any relief. No side effects. Pain Assessment Full Body Front + Back: 1. "all over" Allergies Allergy/AdvReac Type Severity Reaction Status Date / Time dexamethasone Allergy Intermediate HIVES Verified 08/15/21 21:15 latex Allergy Intermediate HIVES Verified 08/15/21 21:15 pregabalin Allergy Intermediate FACE AND Verified 08/15/21 21:15 LIPS SWELLED Sulfa (Sulfonamide Allergy Intermediate LUPUS Verified 08/15/21 21:15 Antibiotics) FLARE UP morphine Allergy Mild local Verified 08/15/21 21:15 reaction at site duloxetine AdvReac Intermediate SEROTONIN Verified 08/15/21 21:15 SYNDROME escitalopram AdvReac Intermediate WENT CRAZY Verified 08/15/21 21:15 sertraline [From Zoloft] AdvReac Intermediate WENT CRAZY Verified 08/15/21 21:15 Home Medications Medication Instructions Recorded Confirmed Type levothyroxine 25 mcg tablet 25 mcg PO QAM 07/10/19 08/15/21 History gabapentin 300 mg capsule 900 mg PO TID #30 cap 08/30/20 08/15/21 Rx lubiprostone 24 mcg capsule 24 mcg PO BID 05/08/21 08/15/21 History (Amitiza) alprazolam 1 mg tablet 1 mg PO BID PRN 06/13/21 08/15/21 History baclofen 10 mg tablet 20 mg PO TID PRN tab 06/19/21 08/15/21 History carvedilol 12.5 mg tablet 12.5 mg PO BID 06/19/21 08/15/21 History clonidine HCl 0.1 mg tablet 0.1 mg PO DAILY PRN 07/12/21 08/15/21 History fluoxetine 20 mg capsule 40 mg PO QAM 07/12/21 08/15/21 History furosemide 20 mg tablet (Lasix) 20 mg PO QAM 07/12/21 08/15/21 History galcanezumab-gnlm 120 mg/mL 120 mg SUBCUT MO 07/12/21 08/15/21 History subcutaneous pen injector (Emgality Pen) metoprolol tartrate 50 mg tablet 50 mg PO QAM 07/12/21 08/15/21 History (Lopressor) Saccharomyces boulardii 250 mg 250 mg PO BID #20 cap 07/17/21 08/15/21 Rx capsule (Florastor) ondansetron 4 mg disintegrating 4 mg PO Q6H PRN #14 tab 07/17/21 08/15/21 Rx tablet New Anti Psycotic 1 tab PO DAILY 08/15/21 08/15/21 History pantoprazole 40 mg tablet,delayed 40 mg PO DAILY 08/15/21 08/15/21 History release (Protonix) Patient History Medical History Abdominal pain Acute confusion Anxiety Chest pain Chronic pain syndrome Confusion Dehydration Depression Fibromyalgia Gastritis Gastroparesis Headache History of kidney infection History of lupus anticoagulant disorder History of migraine History of multiple miscarriages History of ovarian cyst History of umbilical hernia Hypertension Hypertensive urgency Hypothyroidism Intractable epigastric abdominal pain Lupus nephritis Osteoarthritis Peptic ulcer disease Pleuritis (09/17/14) history of Poorly-controlled hypertension Post traumatic stress disorder Pulmonary embolism history of Urinary tract infection Surgical History H/O: hysterectomy History of removal of Port-a-Cath (07/19/21) Infusaport Removal Dr. Adamson 07/19/2021 History of tonsillectomy and adenoidectomy Hx of appendectomy Hx of cholecystectomy Port-A-Cath in place (08/29/20) Mediport Placement, Left Subclavian Vein Dr. Garcia 08/29/2020 Family History Sister SLE (systemic lupus erythematosus) Family/Other SLE (systemic lupus erythematosus) maternal side Social History Smoking Status: Former smoker Tobacco Type: Cigarettes Age Started Using Tobacco: 23; Age Quit Using Tobacco: 39; Second Hand Exposure: No; Hx Alcohol Use: Yes Alcohol type: beer Hx Substance Use: No Preferred Language: Wallisian Communication Ability: Effective Mobile Home Installer Required: No Beliefs That Will Affect Care: None marital status: Single Current Living Situation: Spouse Current Living Situation Comment: [place] current occupational status: employed 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 In no acute distress. Resting comfortably in the hospital bed. HEAD/FACE: Normocephalic and atraumatic. EYES: No drainage or conjunctival injection. ENT: Nose without bleeding or discharge. Oral mucosa moist. NECK: Full ROM without apparent pain. No swelling or masses noted. RESPIRATORY: Patient with unlabored breathing. No signs of respiratory distress. CHEST/AXILLA: Chest movement symmetrical. No deformities noted. ABDOMEN/GI: No distension BACK: Moves without difficulty SKIN: [place], warm and dry. No rash noted. MS/EXTREMITY: No swelling, no deformities. Moving extremities appropriately. NEURO: Alert and appears oriented. Speech is fluent. Cranial Nerves are grossly intact. PSYCH: Alert, pleasant, affect is calm
[2021-08-19] MEDS: TAPENTADOL HCL 50 MG TAB PO PRN ×2 (14:03→20:33)
--- NOTE | 2021-08-19 14:40 | XRay Report ---
XR KUB/Abdomen 1 view CLINICAL HISTORY: Constipation TECHNIQUE: 1 view of the abdomen was obtained. Comparison: None available at the time of this dictation. FINDINGS: Lung bases are unremarkable. The osseous structures are grossly unremarkable. The bowel gas pattern i s nonobstructive. A moderate amount of stool is noted within the large bowel. IMPRESSION: Nonobstructive bowel gas pattern. Moderate stool burden. ACT 112: Negative or not required by law. Electronically signed by: Barrett Ellington M.D. 08/19/2021 2:39 PM
[2021-08-19] MEDS: BREXPIPRAZOLE 1 MG PO SCH (20:35)
--- NOTE | 2021-08-19 21:09 | Billing Data ---
Date of Service August 19, 2021 Coding Level of Care Code 02922 Subseq Hosp Care Lvl 3 Time Spent (min) 35
[2021-08-19] MEDS: ONDANSETRON INJ 2 MG/ML 2 ML VIAL IV PRN (22:14)
[2021-08-20] MEDS: TAPENTADOL HCL 50 MG TAB PO PRN ×4 (01:50→22:18)
[2021-08-20] MEDS: METOCLOPRAMIDE HCL 5 MG TABLET PO SCH ×3 (06:06→22:09)
[2021-08-20] MEDS: LEVOTHYROXINE SODIUM 25 MCG TABLET PO SCH (06:06)
[2021-08-20] MEDS: BACLOFEN 20 MG TAB PO PRN (06:21)
[2021-08-20] MEDS: KETOROLAC TROMETHAMINE 15 MG/ML VIAL IV PRN (06:22)
[2021-08-20 06:38] LABS: Basophils # (auto) 0.04 K/uL (0-0.2); Eosinophils # (auto) 0.28 K/uL (0-0.5); Eosinophils % (auto) 7.2 %; Hematocrit (blood only) 38.4 % (37-47); Hemoglobin 12.7 g/dL (12.0-16.0); Immature Granulocytes # (auto) 0.01 K/uL (0.00-0.02); Immature Granulocytes % (auto) 0.3 %; Lymphocytes # (auto) 1.51 K/uL (1.2-3.4); Lymphocytes % (auto) 38.9 %; Mean Corpuscular Hgb Conc 33.1 g/dL (32-36); Mean Corpuscular Volume 90.8 fL (80-100); Mean Platelet Volume 11.1 fL (7.4-10.4); Monocytes % (auto) 10.3 %; Neutrophils # (auto) 1.64 K/uL (1.4-6.5); Neutrophils % (auto) 42.3 %; Platelet Count 185 K/uL (130-400); RDW Coefficient of Variation 12.8 % (11.5-14.5); RDW Standard Deviation 42.7 fL (36.4-46.3); Red Blood Count 4.23 M/uL (4.2-5.4); White Blood Count 3.88 K/uL (4.8-10.8)
[2021-08-20 07:09] LABS: BUN Creatinine Ratio 12.7 (10-20); Calcium 8.5 mg/dl (8.5-10.1); Creatinine Clr Calc Pharmacy 92.5 ml/min; Est GFR (African American) 92.7 ml/min; Potassium 3.7 mmol/L (3.5-5.1)
--- NOTE | 2021-08-20 07:28 | Hospitalist Progress Note ---
Date of Service August 20, 2021 Assessment & Plan (1) Malaise: Plan: 40yo Female here with nonspecific pain, PMH fibromyalgia, presumed Lupus, opioid dependence, takotsubo cardiomyopathy, indwelling PICC line, HTN, peptic ulcer disease. Fibromyalgia - Patient has history of multiple ED encounters. - WBC not elevated, CXR showing near total resolution of previous R lobar PNA - acute infection unlikely. No empiric antibiotics indicated. Follow blood cultures. - no evidence of anemia on cbc - CT abdomen and pelvis without acute pathology - as for her associated chronic pain, continue home regimen of gabapentin, baclofen. - Lidoderm patch ordered. Tylenol 1g IV q8 prn. Toradol q6hr prn. - pain management consulted. -Changed roxycodone 10mg to Nucynta q6h. Nucynta increased from 50 to 75mg. -If patient still in pain or breakthrough pain, can try Nucynta q4h. -Patient will need to follow up with a pain or methadone clinic outpatient. -Patient with increase in fluoxetine from 40mg to 60mg, and her Brexpiprazole from 0.5mg to 1mg qhs. -Case management will offer pain medicine options outpatient. -Reassess in the AM. (2) Vomiting: - etiology uncertain - CT abdomen and pelvis unremarkable. - scheduled miralax ordered - beta HGC negative. - UDS ordered THC negative, most likely not cyclical vomiting disorder. - continue home dose protonix - zofran prn (3) Elevated serum creatinine: Plan: - Cr elevated to 1.54 , BUN at 20 - baseline Cr < 1.0 - likely pre-renal etiology due to diminished PO intake and vomiting - NSS with Kcl ordered -Creatinine now 1.13, down from 1.38 -Consider resolved. (4) Hypokalemia: Plan: - K at 3.1 on admission - check mag level - NSS with 20meQ Kcl, repleted to 3.7 - trend BMP, replete as needed. (5) Hypothyroid: Plan: - continue home dose levothyroxine (6) Abdominal discomfort/dysmotility -Patient started on Reglan, senna. Miralax BID -KUB 08/19: nonobstructive bowel gas pattern. Moderate stool burden. -Reassess in the morning. Diet: Regular Dvt ppx: heparin 5,000 units SQ BID Dispo: Med/surg Code: Full (2) Vomiting: (3) Elevated serum creatinine: (4) Hypokalemia: (5) Hypothyroid: Admission and Anticipated Discharge Date Admission Date: August 18, 2021 Supervising Physician Co-Signing Physician Notes Attending attestation Pt seen and examined in concert with Dr. Lockhart. In agreement with the documented findings as noted in the resident documentation with any exceptions or additions as noted here. Patient resting comfortably in bed, Feels she is improved with Nucynta. Increased to 75 mg q6h. On examination, S1/S2 nl RRR no MCG. CTAB. Abd NT/ND BS+ve Intractable pain in the setting of fibromyalgia - pain management consult placed, appreciate input. placed on Nucynta. Tolerating fluoxetine 60mg and rec'd increase bexipeprazole to 1mg when able. See below for management of concomitant GI/abd pain complaint. strongly encourage PCP follow up and coordination of plan. Acute on chronic abdominal discomfort in the setting of gastroparesis with intermittent nausea - discussion with patient new, additional complaint. Likely related to exacerbation from narcotic medications based on timing. Added reglan and senna to current regimen to trial for improvement in the setting of gastroparesis meds with close surveillance. If tolerating POI and pain tolerable in AM, consider dispo. Else see resident documentation as noted. Subjective Patient seen at the bedside this morning. Patient stated her pain is tolerable with the current medication. Denies fevers, chills, nausea, vomiting. Patient is very intent on getting a port placed back in for frequent hospital visits and the fact that she is a hard stick for blood draws. We explained to the patient if her pain is currently controlled and she is on this regimen upon discharge she can decide at that point if she feels it is necessary to get another port placed given the risk of infection. Review of Systems Review of Systems: All systems reviewed & are unremarkable except as noted in HPI & below Physical Exam Constitutional: WD/WN, vitals as above Eyes: PERRL, conjunctivae normal, anicteric sclerae Respiratory: normal respiratory effort, lungs clear to auscultation Cardiovascular: RRR, no murmur, no edema Gastrointestinal (Abdomen): normal bowel sounds, soft, nontender, no hepatosplenomegaly Results & Data Results & Data ([facility]) Vital Signs (Past 12 Hours) Vital Signs Temp Pulse Resp BP Pulse Ox 08/19/21 20:30 36.5 C 61 16 107/50 L 99 Resident Activity Tracking Resident Involvement: Resident Care Provided Care Provided: Adult Hospital Medicine
[2021-08-20] MEDS: ALPRAZolam 0.5 MG TABLET PO PRN ×2 (08:20→22:17)
[2021-08-20] MEDS: METOPROLOL TARTRATE 50 MG TAB PO SCH (08:21)
[2021-08-20] MEDS: LIDOCAINE 5% 1 PATCH TD SCH (08:22)
[2021-08-20] MEDS: PANTOprazole 40 MG TAB PO SCH (08:22)
[2021-08-20] MEDS: FUROSEMIDE 20 MG TAB PO SCH (08:23)
[2021-08-20] MEDS: SENNOSIDES 8.8 MG/5 ML UDC PO SCH (08:23)
[2021-08-20] MEDS: LUBIPROSTONE 8 MCG CAP PO SCH ×2 (08:24→22:09)
[2021-08-20] MEDS: GABAPENTIN 300 MG CAP PO SCH ×3 (08:24→22:09)
[2021-08-20] MEDS: carvediloL 12.5 MG TAB PO SCH ×2 (08:24→22:09)
[2021-08-20] MEDS: HEPARIN SOD 5,000 UNIT/0.5 ML VIAL SQ SCH ×2 (08:25→22:10)
[2021-08-20] MEDS: POLYETHYLENE (MIRALAX) 17 GM PACK PO SCH ×2 (08:25→22:10)
[2021-08-20] MEDS: FLUoxetine HCL 20 MG CAP PO SCH (08:25)
--- NOTE | 2021-08-20 09:38 | Pain Management Progress Note ---
Date of Service August 20, 2021 Assessment & Plan (1) Lupus: Lupus erythematosus form: unspecified Qualified Code(s): L93.0 - Discoid lupus erythematosus (2) Fibromyalgia: (3) Chronic pain syndrome: Plan: 1. Increase Nucynta IR to 75mg x 6 hours PRN pain. Side effect profile was reviewed. 2. Continue Toradol and Tylenol. 3. Baclofen 20mg TID PRN and Gabapentin 900mg TID. 4. Not a candidate for interventional procedures. 5. I have emphasized the importance of getting involved with a Methadone or pain clinic as these frequent hospitalizations cannot continue to happen and she is understanding. I did make the patient aware that our office will not be taking over her medications as we are focused on interventional procedures and short term medications rather than chronic medication management. She is understanding. Admission and Anticipated Discharge Date Admission Date: August 18, 2021 Subjective This is a 40-year-old female with a significant history of chronic pain syndrome, depression, fibromyalgia, gastroparesis, lupus, migraines, hypertension, pleuritis, pulmonary embolism. She states that the IV antibiotics for her previous pneumonia flared up her lupus which is causing diffuse pain all over her body. She was switched from oxycodone on to Nucynta 50 mg every 6 hours. She does notice moderate pain relief with Nucynta as it is "taking the edge off ". At the end of 6 hours she does feel like she needs her next dose. No side effects including constipation, drowsiness, dizziness. Physical Exam Physical Exam: GENERAL: This is a 40 year old female. In no acute distress. Resting comfortably in the hospital bed. HEAD/FACE: Normocephalic and atraumatic. EYES: No drainage or conjunctival injection. ENT: Nose without bleeding or discharge. Oral mucosa moist. NECK: Full ROM without apparent pain. No swelling or masses noted. RESPIRATORY: Patient with unlabored breathing. No signs of respiratory distress. CHEST/AXILLA: Chest movement symmetrical. No deformities noted. ABDOMEN/GI: No distension BACK: Moves without difficulty SKIN: [place], warm and dry. No rash noted. MS/EXTREMITY: No swelling, no deformities. Moving extremities appropriately. NEURO: Alert and appears oriented. Speech is fluent. Cranial Nerves are grossly intact. PSYCH: Alert, pleasant, affect is calm
--- NOTE | 2021-08-20 11:39 | Electrocardiogram Report ---
Test Reason : Blood Pressure : / mmHG Vent. Rate : 056 BPM Atrial Rate : 056 BPM P-R Int : 168 ms QRS Dur : 090 ms QT Int : 462 ms P-R-T Axes : 049 039 047 degrees QTc Int : 445 ms Sinus bradycardia Otherwise normal ECG When compared with ECG of 15-AUG-2021 17:59, Vent. rate has decreased BY 51 BPM Non-specific change in ST segment in Inferior leads QT has shortened Confirmed by Bashir Abel ([id number]) on 08/20/2021 11:39:17 AM Referred By: REFERRED SELF Confirmed By:Bashir Abel
--- NOTE | 2021-08-20 15:38 | Surgery Consultation ---
Date of Consultation August 20, 2021 Assessment & Plan (1) Systemic lupus: This is a 40y F with multiple medical issues including lupus, fibromyalgia, gastroparesis who is admitted to the [facility] and being managed for intractable pain, being followed by pain management. Of significance she was r ecently admitted back in July with pneumonia and bacteremia and we removed her Port on 07/19/21. She was discharged to home with a PICC line to complete her IV abx (on 08/03). She was instructed to follow up as an outpatient once course of IV abx was completed for replacement of Port. She is now admitted and being managed for pain control. It was requested by patient to see if we can replace her Port while here. Patient is without fevers or WBC and pneumonia appears to be resolved. Blood cultures from 08/15 are negative. She is not actively being treated with abx for any infections at this time. We can place her on the schedule for port insertion if she remains admitted on with Dr. Pink. Keep NPO at midnight prior to surgery. If she is to be discharged sooner then we can see her as an outpatient. (2) Chronic pain syndrome: (3) Fibromyalgia: History of Present Illness Attending Physician: Oswaldo Waters History of Present Illness This is a 40y F with multiple medical issues including lupus, fibromyalgia, gastroparesis who is admitted to the [facility] and being managed for intractable pain, being followed by pain management. Of significance she was recently admitted back in July with pneumonia and bacteremia and we removed her Port on 07/19/21. She was discharged to home with a PICC line to complete her IV abx (on 08/03). PICC line remains in place currently. She states she requires venous access for multiple hospitalizations, otherwise she does not use it at home for any medication infusions. She says her pneumonia is resolving. She denies fevers/chills, chest pain/SOB. Her nausea is at baseline. No issues with recent port removal site and is healing well. Allergies Allergy/AdvReac Type Severity Reaction Status Date / Time dexamethasone Allergy Intermediate HIVES Verified 08/15/21 21:15 latex Allergy Intermediate HIVES Verified 08/15/21 21:15 pregabalin Allergy Intermediate FACE AND Verified 08/15/21 21:15 LIPS SWELLED Sulfa (Sulfonamide Allergy Intermediate LUPUS Verified 08/15/21 21:15 Antibiotics) FLARE UP morphine Allergy Mild local Verified 08/15/21 21:15 reaction at site duloxetine AdvReac Intermediate SEROTONIN Verified 08/15/21 21:15 SYNDROME escitalopram AdvReac Intermediate WENT CRAZY Verified 08/15/21 21:15 sertraline [From Zoloft] AdvReac Intermediate WENT CRAZY Verified 08/15/21 21:15 Home Medications Medication Instructions Recorded Confirmed Type levothyroxine 25 mcg tablet 25 mcg PO QAM 07/10/19 08/15/21 History gabapentin 300 mg capsule 900 mg PO TID #30 cap 08/30/20 08/15/21 Rx lubiprostone 24 mcg capsule 24 mcg PO BID 05/08/21 08/15/21 History (Amitiza) alprazolam 1 mg tablet 1 mg PO BID PRN 06/13/21 08/15/21 History baclofen 10 mg tablet 20 mg PO TID PRN tab 06/19/21 08/15/21 History carvedilol 12.5 mg tablet 12.5 mg PO BID 06/19/21 08/15/21 History clonidine HCl 0.1 mg tablet 0.1 mg PO DAILY PRN 07/12/21 08/15/21 History fluoxetine 20 mg capsule 40 mg PO QAM 07/12/21 08/15/21 History furosemide 20 mg tablet (Lasix) 20 mg PO QAM 07/12/21 08/15/21 History galcanezumab-gnlm 120 mg/mL 120 mg SUBCUT MO 07/12/21 08/15/21 History subcutaneous pen injector (Emgality Pen) metoprolol tartrate 50 mg tablet 50 mg PO QAM 07/12/21 08/15/21 History (Lopressor) Saccharomyces boulardii 250 mg 250 mg PO BID #20 cap 07/17/21 08/15/21 Rx capsule (Florastor) ondansetron 4 mg disintegrating 4 mg PO Q6H PRN #14 tab 07/17/21 08/15/21 Rx tablet New Anti Psycotic 1 tab PO DAILY 08/15/21 08/15/21 History pantoprazole 40 mg tablet,delayed 40 mg PO DAILY 08/15/21 08/15/21 History release (Protonix) Patient History Medical History Abdominal pain Acute confusion Anxiety Chest pain Chronic pain syndrome Confusion Dehydration Depression Fibromyalgia Gastritis Gastroparesis Headache History of kidney infection History of lupus anticoagulant disorder History of migraine History of multiple miscarriages History of ovarian cyst History of umbilical hernia Hypertension Hypertensive urgency Hypothyroidism Intractable epigastric abdominal pain Lupus nephritis Osteoarthritis Peptic ulcer disease Pleuritis (09/17/14) history of Poorly-controlled hypertension Post traumatic stress disorder Pulmonary embolism history of Urinary tract infection Surgical History H/O: hysterectomy History of removal of Port-a-Cath (07/19/21) Infusaport Removal Dr. Adamson 07/19/2021 History of tonsillectomy and adenoidectomy Hx of appendectomy Hx of cholecystectomy Port-A-Cath in place (08/29/20) Mediport Placement, Left Subclavian Vein Dr. Garcia 08/29/2020 Family History Sister SLE (systemic lupus erythematosus) Family/Other SLE (systemic lupus erythematosus) maternal side Social History Smoking Status: Former smoker Tobacco Type: Cigarettes Age Started Using Tobacco: 23; Age Quit Using Tobacco: 39; Second Hand Exposure: No; Hx Alcohol Use: Yes Alcohol type: beer Hx Substance Use: No Preferred Language: Tamaz[place] Communication Ability: Effective Home Care Attendant Required: No Beliefs That Will Affect Care: None marital status: Single Current Living Situation: Spouse Current Living Situation Comment: [place] current occupational status: employed 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 How many Children do You have: 1 Feels Safe at Home: Yes Assistive Devices: None Review of Systems Constitutional: no fever and no chills Respiratory: no dyspnea Cardiovascular: no chest pain Gastrointestinal: + nausea Physical Exam Physical Exam: awake/alert Constitutional: no acute distress Respiratory: normal respiratory effort Skin: L chest port removal incision c/d/i, healing well Results & Data ([facility]) Vital Signs (Past 12 Hours) Vital Signs Temp Pulse Resp BP Pulse Ox 08/20/21 07:43 36.7 C 62 16 106/70 98 PG Care Time/CCT Total # of Minutes Spent Total Time Spent with Patient: Total time spent is greater than 50% in coordination of care (as documented) at patient's floor/unit and/or counseling patient: Coding Level of Care Code 16431 Inpt Consult Level 3 Diagnoses Systemic lupus M32.9 Chronic pain syndrome G89.4 Fibromyalgia M79.7
--- NOTE | 2021-08-20 21:25 | Billing Data ---
Date of Service August 20, 2021 Coding Level of Care Code 50498 Subseq Hosp Care Lvl 2
[2021-08-20] MEDS: BREXPIPRAZOLE 1 MG PO SCH (22:10)
[2021-08-21] MEDS: TAPENTADOL HCL 50 MG TAB PO PRN ×5 (04:22→22:31)
[2021-08-21] MEDS: LEVOTHYROXINE SODIUM 25 MCG TABLET PO SCH (05:42)
[2021-08-21] MEDS: METOCLOPRAMIDE HCL 5 MG TABLET PO SCH ×3 (05:42→20:54)
--- NOTE | 2021-08-21 07:26 | Hospitalist Progress Note ---
Date of Service August 21, 2021 Assessment & Plan (1) Malaise: Plan: 40yo Female here with nonspecific pain, PMH fibromyalgia, presumed Lupus, opioid dependence, takotsubo cardiomyopathy, indwelling PICC line, HTN, peptic ulcer disease. Fibromyalgia - Patient has history of multiple ED encounters. - WBC not elevated, CXR showing near total resolution of previous R lobar PNA - acute infection unlikely. No empiric antibiotics indicated. Follow blood cultures. - no evidence of anemia on cbc - CT abdomen and pelvis without acute pathology - as for her associated chronic pain, continue home regimen of gabapentin, baclofen. - Lidoderm patch ordered. Tylenol 1g IV q8 prn. Toradol q6hr prn. - pain management consulted. -Changed roxycodone 10mg to Nucynta q6h. Nucynta increased from 50 to 75mg. -If patient still in pain or breakthrough pain, can try Nucynta q4h. -Patient will need to follow up with a pain or methadone clinic outpatient. -Patient with increase in fluoxetine from 40mg to 60mg, and her Brexpiprazole from 0.5mg to 1mg qhs. -Case management offered pain clinic options to patient. She will decide and let us know by tomorrow who she would like to get set up with. -In the process of getting Nucynta approved for discharge. -Reassess in the AM. Port Placement: - Patient insistent on port placement for blood draws when she comes back into hospital due frequent hospital visits. - Tried to talk to patient about alternative route in waiting to see if medication regimen works for her or discuss further or perform in outpatient setting but patient was insistent on being evaluated by surgery for port placement. - Surgery consulted: - Plan for port placement tomorrow. (2) Vomiting: - etiology uncertain - CT abdomen and pelvis unremarkable. - scheduled miralax ordered - beta HGC negative. - UDS ordered THC negative, most likely not cyclical vomiting disorder. - continue home dose protonix - zofran prn (3) Elevated serum creatinine: Plan: - Cr elevated to 1.54 , BUN at 20 - baseline Cr < 1.0 - likely pre-renal etiology due to diminished PO intake and vomiting - NSS with Kcl ordered -Creatinine now 1.13, down from 1.38 -Consider resolved. (4) Hypokalemia: Plan: - K at 3.1 on admission - check mag level - NSS with 20meQ Kcl, repleted to 3.7 - trend BMP, replete as needed. (5) Hypothyroid: Plan: - continue home dose levothyroxine (6) Abdominal discomfort/dysmotility -Patient started on Reglan, senna. Miralax BID -KUB 08/19: nonobstructive bowel gas pattern. Moderate stool burden. -Reassess in the morning. Diet: Regular Dvt ppx: heparin 5,000 units SQ BID Dispo: Med/surg Code: Full (2) Vomiting: (3) Elevated serum creatinine: (4) Hypokalemia: (5) Hypothyroid: Admission and Anticipated Discharge Date Admission Date: August 18, 2021 Supervising Physician Co-Signing Physician Notes Attending attestation Pt seen and examined in concert with Dr. Lockhart. In agreement with the documented findings as noted in the resident documentation with any exceptions or additions as noted here. Patient resting comfortably in bed, Feels she is improved with Nucynta. transitioned to 50 mg q4h. As Patient is requesting more symptoms. On examination, S1/S2 nl RRR no MCG. CTAB. Abd NT/ND BS+ve Intractable pain in the setting of fibromyalgia - pain management consult placed, appreciate input. placed on Nucynta. Tolerating fluoxetine 60mg and rec'd increase bexipeprazole to 1mg when able. See below for management of concomitant GI/abd pain complaint. strongly encourage PCP follow up and coordination of plan. Acute on chronic abdominal discomfort in the setting of gastroparesis with intermittent nausea - discussion with patient new, additional complaint. Likely related to exacerbation from narcotic medications based on timing. Added reglan and senna to current regimen to trial for improvement in the setting of gastroparesis meds with close surveillance. Patient has failed multiple opiates and pain management is now recommending Nucynta. Working on getting authorization. Else see resident documentation as noted. Subjective Patient seen at bedside this morning. Patient stated her pain is being controlled with Nucynta 50 q4h. Denies any fevers, chills, nausea, vomiting. Review of Systems Review of Systems: All systems reviewed & are unremarkable except as noted in HPI & below Physical Exam Constitutional: WD/WN, vitals as above Eyes: PERRL, conjunctivae normal, anicteric sclerae Respiratory: normal respiratory effort, lungs clear to auscultation Cardiovascular: RRR, no murmur, no edema Results & Data Results & Data ([facility]) Vital Signs (Past 12 Hours) Vital Signs Temp Pulse Resp BP Pulse Ox 08/20/21 23:21 36.8 C 72 18 126/75 96 Resident Activity Tracking Resident Involvement: Resident Care Provided Care Provided: Adult Hospital Medicine
[2021-08-21 08:01] LABS: 7-Aminoclonaz, Confirm NEGATIVE ng/mL (<25); Hydro-Alp Ur, GC/MS 814 ng/mL (<25); Hydroxyethylflurazepam, Conf NEGATIVE ng/mL (<50); Hydroxymidazolam Ur, GC/MS NEGATIVE ng/mL (<50); Hydroxytriazolam NEGATIVE ng/mL (<50); Lorazepam, Ur GC/MS NEGATIVE ng/mL (<50); Nordiazepam, Confirm NEGATIVE ng/mL (<50); Oxazepam Ur, GC/MS NEGATIVE ng/mL (<50); Temazepam, Confirm NEGATIVE ng/mL (<50)
--- NOTE | 2021-08-21 08:15 | Surgery Progress Note ---
Date of Service August 21, 2021 Assessment & Plan (1) Chronic pain syndrome: Plan: discussed options/risks of mediport placement discussed bleeding/infection/dvt/vascular injury/pneumothorax/port malfuntion or infection/ etc... questions answered will place mediport tomorrow in OR with fluroscopy. Admission and Anticipated Discharge Date Admission Date: August 18, 2021 Subjective pt seen. no new c/o's Physical Exam Constitutional: WD/WN, vitals as above no acute distress and not ill appearing Eyes: PERRL, conjunctivae normal, anicteric sclerae EOM intact bilaterally ENMT: external ear and nose normal, oropharynx normal Ears: no hearing impairment Neck: trachea midline, no thyromegaly Respiratory: normal respiratory effort; no respiratory distress and does not use accessory muscles Cardiovascular: Rate/Rhythm: regular rate and regular rhythm Gastrointestinal (Abdomen): normal bowel sounds, soft, nontender, no hepatosplenomegaly Skin: no rashes, warm and dry Psychiatric: Orientation: alert, oriented x 3 and cooperative Results & Data ([facility]) Vital Signs (Past 12 Hours) Vital Signs Temp Pulse Resp BP Pulse Ox 08/21/21 07:45 36.9 C 64 16 117/71 98 08/20/21 23:21 36.8 C 72 18 126/75 96 PG Care Time/CCT Total # of Minutes Spent Total Time Spent with Patient: Total time spent is greater than 50% in coordination of care (as documented) at patient's floor/unit and/or counseling patient: Coding Level of Care Code 32732 Subseq Hosp Care Lvl 2 Diagnoses Chronic pain syndrome G89.4
--- NOTE | 2021-08-21 09:20 | Pain Management Progress Note ---
Date of Service August 21, 2021 Assessment & Plan (1) Lupus: Lupus erythematosus form: unspecified Qualified Code(s): L93.0 - Discoid lupus erythematosus (2) Fibromyalgia: (3) Chronic pain syndrome: Plan: 1. I have changed the Nucynta IR to 50mg x 4 hours PRN pain. Hospitalist team is working on prior authorization fo this medication. 2. Continue Toradol and Tylenol. 3. Baclofen 20mg TID PRN and Gabapentin 900mg TID. 4. Not a candidate for interventional procedures. 5. She is stable with her pain management. Will sign off if able to have Nucynta authorized. Please call with any questions or concerns. Admission and Anticipated Discharge Date Admission Date: August 18, 2021 Physical Exam Physical Exam: GENERAL: This is a 40 year old female. In no acute distress. Resting comfortably in the hospital bed. HEAD/FACE: Normocephalic and atraumatic. EYES: No drainage or conjunctival injection. ENT: Nose without bleeding or discharge. Oral mucosa moist. NECK: Full ROM without apparent pain. No swelling or masses noted. RESPIRATORY: Patient with unlabored breathing. No signs of respiratory distress. CHEST/AXILLA: Chest movement symmetrical. No deformities noted. ABDOMEN/GI: No distension BACK: Moves without difficulty SKIN: [place], warm and dry. No rash noted. MS/EXTREMITY: No swelling, no deformities. Moving extremities appropriately. NEURO: Alert and appears oriented. Speech is fluent. Cranial Nerves are grossly intact. PSYCH: Alert, pleasant, affect is calm
[2021-08-21] MEDS: POLYETHYLENE (MIRALAX) 17 GM PACK PO SCH ×2 (10:02→20:54)
[2021-08-21] MEDS: FLUoxetine HCL 20 MG CAP PO SCH (10:03)
[2021-08-21] MEDS: GABAPENTIN 300 MG CAP PO SCH ×3 (10:03→20:53)
[2021-08-21] MEDS: LUBIPROSTONE 8 MCG CAP PO SCH ×2 (10:03→20:53)
[2021-08-21] MEDS: carvediloL 12.5 MG TAB PO SCH ×2 (10:03→20:54)
[2021-08-21] MEDS: METOPROLOL TARTRATE 50 MG TAB PO SCH (10:04)
[2021-08-21] MEDS: PANTOprazole 40 MG TAB PO SCH (10:04)
[2021-08-21] MEDS: FUROSEMIDE 20 MG TAB PO SCH (10:04)
[2021-08-21] MEDS: LIDOCAINE 5% 1 PATCH TD SCH (10:05)
[2021-08-21] MEDS: SENNOSIDES 8.8 MG/5 ML UDC PO SCH (10:05)
[2021-08-21] MEDS: ALPRAZolam 0.5 MG TABLET PO PRN ×2 (10:08→20:54)
[2021-08-21] MEDS: HEPARIN SOD 5,000 UNIT/0.5 ML VIAL SQ SCH ×2 (10:08→20:54)
[2021-08-21] MEDS: ONDANSETRON 4 MG OD TAB PO PRN (12:24)
--- NOTE | 2021-08-21 17:15 | Anesthesiology Consultation ---
Date of Service August 21, 2021 Assessment & Plan (1) Encounter for pre-operative examination: Chart Review Chart Review: Acceptable Risk for Surgery and Patient NOT seen in Pre Admission Testing Consults Requested none History Surgery Operation Date: 08/22/21 14:55 Proposed Procedures p [place] - Adair Pink DO Height/Weight Height: 5 ft 8 in Weight: 80.4 kg Allergies Allergy/AdvReac Type Severity Reaction Status Date / Time dexamethasone Allergy Intermediate HIVES Verified 08/15/21 21:15 latex Allergy Intermediate HIVES Verified 08/15/21 21:15 pregabalin Allergy Intermediate FACE AND Verified 08/15/21 21:15 LIPS SWELLED Sulfa (Sulfonamide Allergy Intermediate LUPUS Verified 08/15/21 21:15 Antibiotics) FLARE UP morphine Allergy Mild local Verified 08/15/21 21:15 reaction at site duloxetine AdvReac Intermediate SEROTONIN Verified 08/15/21 21:15 SYNDROME escitalopram AdvReac Intermediate WENT CRAZY Verified 08/15/21 21:15 sertraline [From Zoloft] AdvReac Intermediate WENT CRAZY Verified 08/15/21 21:15 Medications Home Medications Medication Instructions Recorded Confirmed Last Taken levothyroxine 25 mcg tablet 25 mcg PO QAM 07/10/19 08/15/21 07/18/21 gabapentin 300 mg capsule 900 mg PO TID #30 cap 08/30/20 08/15/21 07/18/21 lubiprostone 24 mcg capsule 24 mcg PO BID 05/08/21 08/15/21 07/18/21 (Amitiza) am dose alprazolam 1 mg tablet 1 mg PO BID PRN 06/13/21 08/15/21 07/17/21 baclofen 10 mg tablet 20 mg PO TID PRN tab 06/19/21 08/15/21 Unknown carvedilol 12.5 mg tablet 12.5 mg PO BID 06/19/21 08/15/21 07/18/21 am dose clonidine HCl 0.1 mg tablet 0.1 mg PO DAILY PRN 07/12/21 08/15/21 07/12/21 fluoxetine 20 mg capsule 40 mg PO QAM 07/12/21 08/15/21 07/18/21 furosemide 20 mg tablet (Lasix) 20 mg PO QAM 07/12/21 08/15/21 07/18/21 galcanezumab-gnlm 120 mg/mL 120 mg SUBCUT MO 07/12/21 08/15/21 07/17/21 subcutaneous pen injector (Emgality Pen) metoprolol tartrate 50 mg tablet 50 mg PO QAM 07/12/21 08/15/21 07/18/21 (Lopressor) am dose Saccharomyces boulardii 250 mg 250 mg PO BID #20 cap 07/17/21 08/15/21 07/18/21 capsule (Florastor) ondansetron 4 mg disintegrating 4 mg PO Q6H PRN #14 tab 07/17/21 08/15/21 Unknown tablet New Anti Psycotic 1 tab PO DAILY 08/15/21 08/15/21 Unknown pantoprazole 40 mg tablet,delayed 40 mg PO DAILY 08/15/21 08/15/21 Unknown release (Protonix) Active Medications Generic Name Dose Route Start Last Admin Trade Name Freq PRN Reason Stop Dose Admin Acetaminophen 1,000 mg 08/16/21 02:08 08/18/21 20:08 Acetaminophen 500 Mg Tab PO 09/15/21 02:07 1,000 mg Q8H PRN Administration MILD PAIN 1-3 Alprazolam 1 mg 08/16/21 01:53 08/21/21 10:08 Alprazolam 0.5 Mg Tablet PO 09/15/21 01:52 1 mg BID PRN Administration Anxiety Baclofen 20 mg 08/16/21 01:53 08/20/21 06:21 Baclofen 20 Mg Tab PO 09/15/21 01:52 20 mg TID PRN Administration Muscle Spasm Brexpiprazole 1 ea 08/18/21 21:00 08/20/21 22:10 Brexpiprazole 1 Mg PO 09/17/21 20:59 1 ea HS THAO Administration Carvedilol 12.5 mg 08/16/21 09:00 08/21/21 10:03 Carvedilol 12.5 Mg Tab PO 09/15/21 08:59 12.5 mg BID THAO Administration Fluoxetine HCl 60 mg 08/18/21 09:00 08/21/21 10:03 Fluoxetine Hcl 20 Mg Cap PO 09/17/21 08:59 60 mg QAM THAO Administration Furosemide 20 mg 08/16/21 09:00 08/21/21 10:04 Furosemide 20 Mg Tab PO 09/15/21 08:59 20 mg QAM THAO Administration Gabapentin 900 mg 08/16/21 09:00 08/21/21 14:10 Gabapentin 300 Mg Cap PO 09/15/21 08:59 900 mg TID THAO Administration Heparin Sodium (Beef Lung) 5 ml 08/17/21 14:37 08/20/21 06:22 Heparin 10 Unit/Ml 5 Ml Flush FLUSH 09/16/21 14:36 5 ml PRN PRN Administration Flush Heparin Sodium (Porcine) 5,000 units 08/16/21 09:00 08/21/21 10:08 Heparin Sod 5,000 Unit/0.5 Ml Vial SQ 09/15/21 08:59 5,000 units Q12 THAO Administration Ketorolac Tromethamine 15 mg 08/16/21 18:32 08/20/21 06:22 Ketorolac Tromethamine 15 Mg/Ml Vial IV 08/21/21 18:31 15 mg Q6H PRN Administration MILD TO MODERATE PAIN Levothyroxine Sodium 25 mcg 08/16/21 06:30 08/21/21 05:42 Levothyroxine Sodium 25 Mcg Tablet PO 09/15/21 06:29 25 mcg DAILYBB THAO Administration Lidocaine 1 patch 08/16/21 02:15 08/21/21 10:05 Lidocaine 5% 1 Patch TD 09/15/21 02:14 Not Given QAM THAO Lubiprostone 24 mcg 08/16/21 09:00 08/21/21 10:03 Lubiprostone 8 Mcg Cap PO 09/15/21 08:59 24 mcg BID THAO Administration Melatonin 3 mg 08/16/21 02:15 08/16/21 22:49 Melatonin 3 Mg Tab PO 09/15/21 02:14 3 mg HS PRN Administration Sleep Metoclopramide HCl 5 mg 08/18/21 14:00 08/21/21 14:10 Metoclopramide Hcl 5 Mg Tablet PO 09/17/21 13:59 5 mg Q8 THAO Administration Metoprolol Tartrate 50 mg 08/16/21 09:00 08/21/21 10:04 Metoprolol Tartrate 50 Mg Tab PO 09/15/21 08:59 50 mg QAM THAO Administration Miscellaneous 1 ea 08/16/21 15:00 08/20/21 22:11 Remove Lidoderm Patch N/A 09/15/21 14:59 Not Given DAILY@2100 THAO Ondansetron HCl 4 mg 08/21/21 12:05 08/21/21 12:24 Ondansetron 4 Mg Od Tab PO 09/20/21 12:04 4 mg Q6H PRN Administration Nausea Pantoprazole Sodium 40 mg 08/16/21 09:00 08/21/21 10:04 Pantoprazole 40 Mg Tab PO 09/15/21 08:59 40 mg DAILY THAO Administration Polyethylene Glycol 17 gm 08/19/21 21:00 08/21/21 10:02 Polyethylene (Miralax) 17 Gm Pack PO 09/18/21 20:59 17 gm BID THAO Administration Sennosides 8.8 mg 08/19/21 09:00 08/21/21 10:05 Sennosides 8.8 Mg/5 Ml Udc PO 09/18/21 08:59 Not Given QAM THAO Tapentadol 50 mg 08/21/21 09:19 08/21/21 14:10 Tapentadol Hcl 50 Mg Tab PO 09/03/21 09:23 50 mg Q4H PRN Administration MODERATE TO SEVERE PAIN Past Medical History Medical History Abdominal pain Acute confusion Anxiety Chest pain Chronic pain syndrome Confusion Dehydration Depression Fibromyalgia Gastritis Gastroparesis Headache History of kidney infection History of lupus anticoagulant disorder History of migraine History of multiple miscarriages History of ovarian cyst History of umbilical hernia Hypertension Hypertensive urgency Hypothyroidism Intractable epigastric abdominal pain Lupus nephritis Osteoarthritis Peptic ulcer disease Pleuritis (09/17/14) history of Poorly-controlled hypertension Post traumatic stress disorder Pulmonary embolism history of Urinary tract infection Past Family History Family History Sister SLE (systemic lupus erythematosus) Family/Other SLE (systemic lupus erythematosus) maternal side Past Surgical History Surgical History H/O: hysterectomy History of removal of Port-a-Cath (07/19/21) Infusaport Removal Dr. Adamson 07/19/2021 History of tonsillectomy and adenoidectomy Hx of appendectomy Hx of cholecystectomy Port-A-Cath in place (08/29/20) Mediport Placement, Left Subclavian Vein Dr. Garcia 08/29/2020 Social History Smoking Status: Former smoker tobacco type: cigarettes Hx Alcohol Use: Yes Alcohol type: beer alcohol intake frequency: holidays/special occasions only Hx Substance Use: No substance use type: does not use Substance Use Type Other:: HISTORY OF PRESCRIPTION USE Last Used Substance: Days (ago) Physical Exam Vital Signs Last Vital Signs Temp 36.9 C 08/21/21 15:27 Pulse 73 08/21/21 15:27 Resp 16 08/21/21 15:27 BP 134/81 08/21/21 15:27 Pulse Ox 96 08/21/21 15:27 Testing Laboratory Results 08/20/21 06:24 08/20/21 06:24 Urine Color Yellow 08/16/21 01:49 Urine Appearance Clear (Clear) 08/16/21 01:49 Urine pH 5.0 (4.5-7.5) 08/16/21 01:49 Ur Specific [place] 1.023 (1.000-1.030) 08/16/21 01:49 Urine Protein Negative (Negative) 08/16/21 01:49 Urine Glucose (UA) Negative (Negative) 08/16/21 01:49 Urine Ketones Trace (Negative) H 08/16/21 01:49 Urine Nitrite Negative (Negative) 08/16/21 01:49 Ur Leukocyte Esterase Negative (Negative) 08/16/21 01:49 Urine Test Negative (Negative) 08/16/21 20:05 08/15/21 17:55 Aerobic Blood Culture - Final Blood No growth in Aerobic bottle after 5 days. Anaerobic Blood Culture - Final No growth in Anaerobic bottle after 5 days. 08/15/21 17:41 Aerobic Blood Culture - Final Blood No growth in Aerobic bottle after 5 days. Anaerobic Blood Culture - Final No growth in Anaerobic bottle after 5 days. 08/16/21 20:05 Urine Test Negative
[2021-08-21] MEDS: BREXPIPRAZOLE 1 MG PO SCH (20:53)
[2021-08-21] MEDS: BACLOFEN 20 MG TAB PO PRN (20:54)
[2021-08-21] MEDS ORDERED: ALUMINUM/MAGNESIUM SUSP 30 ML UDC PO PRN (21:49)
[2021-08-22] MEDS: METOCLOPRAMIDE HCL 5 MG TABLET PO SCH ×3 (05:25→23:00)
[2021-08-22] MEDS: LEVOTHYROXINE SODIUM 25 MCG TABLET PO SCH (05:25)
[2021-08-22] MEDS: TAPENTADOL HCL 50 MG TAB PO PRN ×5 (05:26→23:01)
--- NOTE | 2021-08-22 07:45 | Hospitalist Progress Note ---
Date of Service August 22, 2021 Assessment & Plan (1) Malaise: Plan: 40yo Female here with nonspecific pain, PMH fibromyalgia, presumed Lupus, opioid dependence, takotsubo cardiomyopathy, indwelling PICC line, HTN, peptic ulcer disease. Fibromyalgia - Patient has history of multiple ED encounters. - WBC not elevated, CXR showing near total resolution of previous R lobar PNA - acute infection unlikely. No empiric antibiotics indicated. Follow blood cultures. - no evidence of anemia on cbc - CT abdomen and pelvis without acute pathology - as for her associated chronic pain, continue home regimen of gabapentin, baclofen. - Lidoderm patch ordered. Tylenol 1g IV q8 prn. Toradol q6hr prn. - pain management consulted. -Changed roxycodone 10mg to Nucynta q6h. Nucynta increased from 50 to 75mg. -If patient still in pain or breakthrough pain, can try Nucynta q4h. -Patient will need to follow up with a pain or methadone clinic outpatient. -Patient with increase in fluoxetine from 40mg to 60mg, and her Brexpiprazole from 0.5mg to 1mg qhs. -Case management offered pain clinic options to patient. She will decide and let us know by tomorrow who she would like to get set up with. -In the process of getting Nucynta approved for discharge since patient failed multiple other therapies including the roxycodone she received at this stay. -Reassess in the AM. Port Placement: - Patient insistent on port placement for blood draws when she comes back into hospital due frequent hospital visits. - Tried to talk to patient about alternative route in waiting to see if medication regimen works for her or discuss further or perform in outpatient setting but patient was insistent on being evaluated by surgery for port placement. - Surgery consulted: - Plan for port placement today. (2) Vomiting: - etiology uncertain - CT abdomen and pelvis unremarkable. - scheduled miralax ordered - beta HGC negative. - UDS ordered THC negative, most likely not cyclical vomiting disorder. - continue home dose protonix - zofran prn (3) Elevated serum creatinine: Plan: - Cr elevated to 1.54 , BUN at 20 - baseline Cr < 1.0 - likely pre-renal etiology due to diminished PO intake and vomiting - NSS with Kcl ordered -Creatinine now 1.13, down from 1.38 -Consider resolved. (4) Hypokalemia: Plan: - K at 3.1 on admission - check mag level - NSS with 20meQ Kcl, repleted to 3.7 - trend BMP, replete as needed. (5) Hypothyroid: Plan: - continue home dose levothyroxine (6) Abdominal discomfort/dysmotility -Patient started on Reglan, senna. Miralax BID -KUB 08/19: nonobstructive bowel gas pattern. Moderate stool burden. -Reassess in the morning. (7) Severe protein-calorie malnutrition H&P notes: "She also has been having difficulty tolerating PO intake - she says she often vomits food/liquids up after consuming and endorses a subjective weight loss of 20 pounds over the past 20 days". EMR review demonstrates a baseline body weight of about 107 kg. Admission weight was 80.4 kg. This represents a loss of almost 25% of initial body weight over the past few weeks. Risk Factor(s): Chronic pain, fibromyalgia flare, vomiting Treatment: Pain management, IVF (8) Acute kidney failure, POA, resolved "Elevated serum creatinine: Plan: - Cr elevated to 1.54 , BUN at 20 - baseline Cr < 1.0 - likely pre-renal etiology due to diminished PO intake and vomiting - NSS with Kcl ordered - avoid NSAIDs - trend BMP " Risk Factor(s): Poor intake, nausea, vomiting Treatment: IVF, serial chemistries. Diet: Regular Dvt ppx: heparin 5,000 units SQ BID Dispo: Med/surg Code: Full (2) Vomiting: (3) Elevated serum creatinine: (4) Hypokalemia: (5) Hypothyroid: Admission and Anticipated Discharge Date Admission Date: August 18, 2021 Supervising Physician Co-Signing Physician Notes Attending attestation Pt seen and examined in concert with Dr. Lockhart. In agreement with the documented findings as noted in the resident documentation with any exceptions or additions as noted here. Patient resting comfortably in bed, Feels she is improved with Nucynta 50 mg q4h. On examination, S1/S2 nl RRR no MCG. CTAB. Abd NT/ND BS+ve Intractable pain in the setting of fibromyalgia - pain management consult placed, appreciate input. placed on Nucynta. Tolerating fluoxetine 60mg and rec'd increase bexipeprazole to 1mg when able. See below for management of concomitant GI/abd pain complaint. strongly encourage PCP follow up and coordination of plan. Acute on chronic abdominal discomfort in the setting of gastroparesis with intermittent nausea - discussion with patient new, additional complaint. Likely related to exacerbation from narcotic medications based on timing. Added reglan and senna to current regimen to trial for improvement in the setting of gastroparesis meds with close surveillance. Patient has failed outpatient regimens of tramadol, and recently was on oxyc odone and required over 20 tablets. This was not helping control her pain. Patient also was on morphine here and pain was not controlled. Pain management was consulted as patient had failed, tramadol, oxycodone, and did not respond to morphine. network applications specialist recommended Nucynta, 50 mg PO Q4H which is controlling the patient's pain currently Working on getting authorization. Else see resident documentation as noted. Subjective Patient seen at the bedside this morning. Patient says her pain is controlled with the Nucynta, waiting for her port placement later in the day. She says there is nausea but it's controlled with zofran. Denies fevers, chills. Patient deciding on where to go for pain clinic given the options case manage ment gave her. She said she is looking to go to one of the options in [place]. Review of Systems Review of Systems: All systems reviewed & are unremarkable except as noted in HPI & below Physical Exam Constitutional: WD/WN, vitals as above Eyes: PERRL, conjunctivae normal, anicteric sclerae Respiratory: normal respiratory effort, lungs clear to auscultation Cardiovascular: RRR, no murmur, no edema Gastrointestinal (Abdomen): Mild tenderness to palpation of epigastrium. Non- distended. Results & Data Results & Data ([facility]) Vital Signs (Past 12 Hours) Vital Signs Temp Pulse Resp BP Pulse Ox 08/21/21 22:52 36.8 C 79 18 122/76 97 Resident Activity Tracking Resident Involvement: Resident Care Provided Care Provided: Adult Hospital Medicine
[2021-08-22] MEDS: FLUoxetine HCL 20 MG CAP PO SCH (09:04)
[2021-08-22] MEDS: GABAPENTIN 300 MG CAP PO SCH ×3 (09:05→20:31)
[2021-08-22] MEDS: METOPROLOL TARTRATE 50 MG TAB PO SCH (09:05)
[2021-08-22] MEDS: PANTOprazole 40 MG TAB PO SCH (09:05)
[2021-08-22] MEDS: FUROSEMIDE 20 MG TAB PO SCH (09:06)
[2021-08-22] MEDS: SENNOSIDES 8.8 MG/5 ML UDC PO SCH (09:06)
[2021-08-22] MEDS: HEPARIN SOD 5,000 UNIT/0.5 ML VIAL SQ SCH ×2 (09:07→20:32)
[2021-08-22] MEDS: LIDOCAINE 5% 1 PATCH TD SCH (09:07)
[2021-08-22] MEDS: LUBIPROSTONE 8 MCG CAP PO SCH ×2 (09:07→20:31)
[2021-08-22] MEDS: POLYETHYLENE (MIRALAX) 17 GM PACK PO SCH ×2 (09:08→20:32)
[2021-08-22] MEDS: carvediloL 12.5 MG TAB PO SCH ×2 (09:08→20:30)
--- NOTE | 2021-08-22 09:18 | History & Physical Bridge Note ---
Date of Service August 22, 2021 History & Physical Bridge Note I have examined the patient, reviewed the History & Physical and in the interval since the performance of the History & Physical I have noted the following changes of clinical significance: no changes noted
[2021-08-22] MEDS: ALPRAZolam 0.5 MG TABLET PO PRN ×2 (09:42→19:56)
[2021-08-22] MEDS: ONDANSETRON 4 MG OD TAB PO PRN ×2 (09:44→17:53)
--- NOTE | 2021-08-22 12:51 | Billing Data ---
Date of Service August 21, 2021 Coding Level of Care Code 34130 Subseq Hosp Care Lvl 2
[2021-08-22] MEDS ORDERED: fentaNYL citrate 100 MCG/2 ML VIAL ONE (15:15)
[2021-08-22] MEDS ORDERED: MIDAZOLAM HCL 1 MG/ML 2ML VIAL ONE ×2 (15:15→15:57)
[2021-08-22] MEDS ORDERED: KETAMINE 50 MG/5 ML SYRINGE ONE (15:16)
[2021-08-22] MEDS ORDERED: ATROPINE SULFATE 0.1 MG/ML 10ML SYR IV PRN (15:26)
[2021-08-22] MEDS ORDERED: ONDANSETRON INJ 2 MG/ML 2 ML VIAL IV PRN (15:26)
[2021-08-22] MEDS ORDERED: ceFAZolin 2000MG 2,000 MG/15 ML SYR IV ONE (15:26)
[2021-08-22] MEDS ORDERED: ePHEDrine sulfate 50 MG/ML AMP IV PRN (15:26)
[2021-08-22] MEDS ORDERED: EPINEPHrine INJ 1 MG/ML AMP ONE (15:34)
[2021-08-22] MEDS ORDERED: HEPARIN SOD (PORCINE) 5,000 UNITS/ML VIAL ONE (15:34)
[2021-08-22] MEDS ORDERED: BUPIVACAINE 0.5 % 5 MG/1 ML MPF 30ML VIAL ONE (15:34)
[2021-08-22] MEDS ORDERED: PROPOFOL IV EMULSION 10 MG/ML 20 ML VIAL IV ONE ×2 (16:00→16:25)
[2021-08-22] MEDS ORDERED: ONDANSETRON INJ 2 MG/ML 2 ML VIAL ONE (16:17)
--- NOTE | 2021-08-22 16:48 | Operative Report ---
PG Post Operative Report Pre & Post Diagnosis Operation Date: 08/22/21 14:55 Pre-Op Diagnosis: INTRACTABLE PAIN Post-Op Diagnosis: INTRACTABLE PAIN I identified the patient and participated in the time-out.: Yes Procedure Operation Date: 08/22/21 14:55 Actual Procedures p Mediport Insertion Right Subclavian - Adair Pink DO Surgeon Adair Pink DO Field Return Repairer n/a Estimated Blood Loss 5 Findings Consistent with Post-Op Diagnosis Specimens none Description of Procedure After informed consent was obtained the patient was taken the operating room placed in supine position. IV sedation was administered by anesthesia and titrated to effect. Both arms were then tucked. The upper chest area was sterilely prepped and draped in usual fashion. I used Marcaine with epinephrine to localize the skin just below the angle of the right clavicle. I also used Marcaine to localize the periosteum of the clavicle. We then used a 15 blade scalpel to make a horizontal incision. I carried this down through the soft tissue using electrocautery to the pectoralis fascia. I then used blunt finger dissection to create a small pocket. I then used an 18-gauge finder needle to access the subclavian vein without difficulty. A guidewire was advanced under fluoroscopy into the superior vena cava. We then measured and cut the catheter to appropriate size and then thoroughly flushed the entire system with a heparin solution. Next we advanced a vascular dilator with peel-away sheath over the guidewire again using fluoroscopy. We then pulled out the dilator as well as the guidewire leaving the peel-away sheath in place. The catheter was advanced through the peel-away sheath and the port itself was placed into the housing pocket. We then peeled the sheath away leaving the catheter. We verified position using fluoroscopy. The catheter was then flushed with heparin solution. It withdrew dark venous blood easily. The port was then secured to the muscle using 0 Ethibond with 3 point fixation. The wound was thoroughly irrigated and closed in 2 layers using 3-0 Monocryl for both layers. A sterile dressing was applied. The patient was awakened and transferred to recovery in stable condition. A postoperative portable chest x-ray is currently pending to rule out pneumothorax and the verify catheter position. I attest to the content of the Intraoperative Record and any orders documented therein. Any exceptions are noted below. I attest to the content of the Intraoperative Record and any orders documented therein. Any exceptions are noted below.
[2021-08-22] MEDS: fentaNYL citrate 100 MCG/2 ML VIAL IV PRN ×3 (16:50→17:03)
--- NOTE | 2021-08-22 16:58 | XRay Report ---
XR chest 1V portable CLINICAL HISTORY: s/p mediport placement TECHNIQUE: Single frontal radiograph of the chest was obtained. Comparison: Comparison is made to chest one view 08/15/2021 FINDINGS: Interval placement of right portacatheter with its tip in the lower SVC. A left PICC is unchanged. Th e cardiomediastinal silhouette is normal. A small focus of airspace opacity is seen in the right midl ann [place]. No evidence of pleural effusion or pneumothorax. IMPRESSION: 1. Satisfactory positioning of right portacatheter with no evidence of pneumothorax. 2. Right mid lung airspace opacity may reflect atelectasis, pneumonia, and/or aspiration. ACT 112: Negative or not required by law. Electronically signed by: Barrett Ellington M.D. 08/22/2021 4:56 PM
--- NOTE | 2021-08-22 17:00 | Anesthesiology Progress Note ---
Date of Service August 22, 2021 Anesthesia Post Procedure Vital Signs Vital Signs: Temp Pulse Pulse Resp BP Pulse Ox 08/22/21 16:45 59 L 17 109/76 99 08/22/21 16:38 98.8 F 68 12 117/67 100 08/22/21 15:15 98.1 F 57 L 18 132/71 97 08/22/21 07:35 98.4 F 69 16 123/73 97 08/21/21 22:52 98.2 F 79 18 122/76 97 Pain Intensity Chest: Pain Intensity: 9 Generalized: Pain Intensity: 8 Transfer of Care Handoff Completed per policy Notes Mental Status: alert / awake / arousable and participated in evaluation Patient Amnestic to Procedure: Yes Nausea / Vomiting: adequately controlled Pain: adequately controlled Airway Patency, RR, SpO2: stable & adequate BP & HR: stable & adequate Hydration State: stable & adequate Anesthetic Complications: no major complications apparent and Pt Satisfied with anesthetic care
[2021-08-22] MEDS: BACLOFEN 20 MG TAB PO PRN (19:57)
[2021-08-22] MEDS: ACETAMINOPHEN 500 MG TAB PO PRN (20:28)
[2021-08-22] MEDS: BREXPIPRAZOLE 1 MG PO SCH (20:29)
--- NOTE | 2021-08-22 21:17 | Billing Data ---
Date of Service August 22, 2021 Coding Level of Care Code 71405 Subseq Hosp Care Lvl 2
[2021-08-23] MEDS: TAPENTADOL HCL 50 MG TAB PO PRN ×3 (03:51→12:10)
[2021-08-23] MEDS: LEVOTHYROXINE SODIUM 25 MCG TABLET PO SCH (05:49)
[2021-08-23] MEDS: METOCLOPRAMIDE HCL 5 MG TABLET PO SCH ×2 (05:50→07:45)
--- NOTE | 2021-08-23 07:39 | Hospitalist Progress Note ---
Date of Service August 23, 2021 Assessment & Plan (1) Malaise: Plan: 40yo Female here with nonspecific pain, PMH fibromyalgia, presumed Lupus, opioid dependence, takotsubo cardiomyopathy, indwelling PICC line, HTN, peptic ulcer disease. Fibromyalgia - Patient has history of multiple ED encounters. - WBC not elevated, CXR showing near total resolution of previous R lobar PNA - acute infection unlikely. No empiric antibiotics indicated. Follow blood cultures. - no evidence of anemia on cbc - CT abdomen and pelvis without acute pathology - as for her associated chronic pain, continue home regimen of gabapentin, baclofen. - Lidoderm patch ordered. Tylenol 1g IV q8 prn. Toradol q6hr prn. - pain management consulted. -Changed roxycodone 10mg to Nucynta q6h. Nucynta increased from 50 to 75mg. -If patient still in pain or breakthrough pain, can try Nucynta q4h. -Patient will need to follow up with a pain or methadone clinic outpatient. -Patient with increase in fluoxetine from 40mg to 60mg, and her Brexpiprazole from 0.5mg to 1mg qhs. -Case management offered pain clinic options to patient. She will decide and let us know by tomorrow who she would like to get set up with. -In the process of getting Nucynta approved for discharge since patient failed multiple other therapies including the roxycodone she received at this stay. -Reassess in the AM. Port Placement: - Patient insistent on port placement for blood draws when she comes back into hospital due frequent hospital visits. - Tried to talk to patient about alternative route in waiting to see if medication regimen works for her or discuss further or perform in outpatient setting but patient was insistent on being evaluated by surgery for port placement. - Surgery consulted: - Plan for port placement today. (2) Vomiting: - etiology uncertain - CT abdomen and pelvis unremarkable. - scheduled miralax ordered - beta HGC negative. - UDS ordered THC negative, most likely not cyclical vomiting disorder. - continue home dose protonix - zofran prn (3) Elevated serum creatinine: Plan: - Cr elevated to 1.54 , BUN at 20 - baseline Cr < 1.0 - likely pre-renal etiology due to diminished PO intake and vomiting - NSS with Kcl ordered -Creatinine now 1.13, down from 1.38 -Consider resolved. (4) Hypokalemia: Plan: - K at 3.1 on admission - check mag level - NSS with 20meQ Kcl, repleted to 3.7 - trend BMP, replete as needed. (5) Hypothyroid: Plan: - continue home dose levothyroxine (6) Abdominal discomfort/dysmotility -Patient started on Reglan, senna. Miralax BID -KUB 08/19: nonobstructive bowel gas pattern. Moderate stool burden. -Reassess in the morning. Diet: Regular Dvt ppx: heparin 5,000 units SQ BID Dispo: Med/surg Code: Full (2) Vomiting: (3) Elevated serum creatinine: (4) Hypokalemia: (5) Hypothyroid: Admission and Anticipated Discharge Date Admission Date: August 18, 2021 Subjective Patient seen at bedside this morning. Results & Data Results & Data ([facility]) Vital Signs (Past 12 Hours) Vital Signs Temp Pulse Resp BP Pulse Ox 08/23/21 07:25 36.6 C 59 L 16 103/67 99 08/22/21 22:54 36.6 C 65 14 121/73 96 08/22/21 20:36 36.4 C L 67 15 138/84 98 08/22/21 19:40 36.9 C 62 15 103/59 L 98
[2021-08-23] MEDS: SENNOSIDES 8.8 MG/5 ML UDC PO SCH (07:44)
[2021-08-23] MEDS: LUBIPROSTONE 8 MCG CAP PO SCH (07:44)
[2021-08-23] MEDS: carvediloL 12.5 MG TAB PO SCH (07:44)
[2021-08-23] MEDS: HEPARIN SOD 5,000 UNIT/0.5 ML VIAL SQ SCH (07:44)
[2021-08-23] MEDS: GABAPENTIN 300 MG CAP PO SCH (07:45)
[2021-08-23] MEDS: ALPRAZolam 0.5 MG TABLET PO PRN (07:45)
[2021-08-23] MEDS: FLUoxetine HCL 20 MG CAP PO SCH (07:45)
[2021-08-23] MEDS: FUROSEMIDE 20 MG TAB PO SCH (07:45)
[2021-08-23] MEDS: PANTOprazole 40 MG TAB PO SCH (07:45)
[2021-08-23] MEDS: METOPROLOL TARTRATE 50 MG TAB PO SCH (07:45)
[2021-08-23] MEDS: ACETAMINOPHEN 500 MG TAB PO PRN (07:46)
[2021-08-23] MEDS: LIDOCAINE 5% 1 PATCH TD SCH (07:46)
[2021-08-23] MEDS: POLYETHYLENE (MIRALAX) 17 GM PACK PO SCH (07:46)
--- NOTE | 2021-08-23 08:33 | Surgery Progress Note ---
Date of Service August 23, 2021 Assessment & Plan (1) Intractable pain: Plan: POD#1 R chest port insertion Patient doing well. Incision intact Mediport may be used at anytime. If not needed today may remove outer dressing tomorrow PICC okay to be removed when ok with hospitalists F/u in clinic with Dr. Pink in 2 weeks for wound check Admission and Anticipated Discharge Date Admission Date: August 18, 2021 Subjective Patient had some pain over port site overnight, but feels better this AM. Otherwise no complaints, hopeful for discharge today. Physical Exam Physical Exam: awake/alert Skin: R port incision intact. scant old serosang drainage under dressing Results & Data ([facility]) Vital Signs (Past 12 Hours) Vital Signs Temp Pulse Resp BP Pulse Ox 08/23/21 07:25 36.6 C 59 L 16 103/67 99 08/22/21 22:54 36.6 C 65 14 121/73 96 08/22/21 20:36 36.4 C L 67 15 138/84 98 PG Care Time/CCT Total # of Minutes Spent Total Time Spent with Patient: Total time spent is greater than 50% in coordination of care (as documented) at patient's floor/unit and/or counseling patient: Coding Level of Care Code None Diagnoses Intractable pain R52
[2021-08-23 09:17] LABS: Basophils # (auto) 0.05 K/uL (0-0.2); Basophils % (auto) 0.9 %; Eosinophils # (auto) 0.27 K/uL (0-0.5); Eosinophils % (auto) 4.6 %; Hematocrit (blood only) 39.5 % (37-47); Hemoglobin 12.8 g/dL (12.0-16.0); Immature Granulocytes # (auto) 0.03 K/uL (0.00-0.02); Immature Granulocytes % (auto) 0.5 %; Lymphocytes # (auto) 1.81 K/uL (1.2-3.4); Lymphocytes % (auto) 30.9 %; Mean Corpuscular Hemoglobin 29.6 pg (25-34); Mean Corpuscular Hgb Conc 32.4 g/dL (32-36); Mean Corpuscular Volume 91.2 fL (80-100); Mean Platelet Volume 10.7 fL (7.4-10.4); Monocytes # (auto) 0.47 K/uL (0.11-0.59); Neutrophils # (auto) 3.22 K/uL (1.4-6.5); Neutrophils % (auto) 55.1 %; Platelet Count 229 K/uL (130-400); RDW Coefficient of Variation 12.8 % (11.5-14.5); Red Blood Count 4.33 M/uL (4.2-5.4); White Blood Count 5.85 K/uL (4.8-10.8)
[2021-08-23 09:45] LABS: BUN Creatinine Ratio 9.2 (10-20); Calcium 8.5 mg/dl (8.5-10.1); Creatinine Clr Calc Pharmacy 93.5 ml/min; Est GFR (Non-African American) 81.1 ml/min; Potassium 4.2 mmol/L (3.5-5.1)
--- NOTE | 2021-08-23 13:26 | Discharge Summary ---
Date of Service August 23, 2021 Admission HPI Per Admitting Provider Danuta is a 40 yo woman with a PMHx of fibromyalgia and lupus who presented to the [facility] ED for evaluation of general malaise and vomiting. Of note, she was admitted 07/18/21 to 07/26/21 for a R lobar PNA and bacteremia - she was discharged on an oral course of cefdinir and azithromycin. However, due to tolerability issues, she had a PICC line placed for IV therapy. She received 18 days of IV Omnicef - however this regimen had to be stopped short as well due to tolerability issues - Danuta reported an intense, burning pain throughout her body when the abx were infusing. She believes the abx were causing a flare of her lupus. Ever since leaving the hospital on 08/05/21, she says she "cannot do anything," noting that walking a short distance in her house causes "immense exhaustion and pain." She also has been having difficulty tolerating PO intake - she says she often vomits food/liquids up after consuming and endorses a subjective weight loss of 20 pounds over the past 20 days. She continues to experience pain in the area of the right lung, "where the pneumonia had been." She was seen by pain management in-house prior to her discharge on 08/05/21 for pain related to the antibiotics - for this she was given a 10 day supply of Oxycodone and Oxycontin. Since these scripts have now run out, she has been just using Aleve for pain management. She has been trialed on steroids in the past, but she says they do not provide her with any benefit. She denies any fevers, cough, or diarrhea. In the ED, she was afebrile with a normal HR, BP and breathing well on room air. Her WBC was normal. Her lactate was not elevated. Her COVID 19/ Flu/RSV swab was negative. Blood cultures were obtained. Her Cr was elevated to 1.54, BUN up to 20. K low at 3.1; electrolytes otherwise stable. CXR showing near total resolution of previous right lobar PNA. CT of abdomen and pelvis showing no acute processes. She was given dilaudid 1mg, zofran, and 1 liter of NSS. Admission Exam Per Admitting Provider Constitutional: WD/WN, vitals as above cooperative; no acute distress Eyes: + anicteric sclerae ENMT: external ear and nose normal, oropharynx normal Neck: normal visual inspection and trachea midline Respiratory: normal respiratory effort, lungs clear to auscultation no cough Cardiovascular: RRR, no murmur, no edema Heart Sounds: normal S1 and normal S2 Extremities: no pedal edema Chest (Breasts): Chest: + vascular access device or port (PICC line left UE) Gastrointestinal (Abdomen): Inspection/Auscultation: abdomen normal to inspection and normal bowel sounds; abdomen not distended Percussion/Palpation: + abdomen tender (left lower quadrant) and abdomen soft; no guarding and no hepatosplenomegaly Musculoskeletal: Head/Neck/Chest: normocephalic and head atraumatic Skin: no rashes, warm and dry Neurologic: moves all extremities Psychiatric: A+Ox3, euthymic affect Principal Diagnosis Intractable Pain. Discharge Exam Constitutional WD/WN, vitals as above Eyes PERRL, conjunctivae normal, anicteric sclerae Respiratory normal respiratory effort, lungs clear to auscultation Cardiovascular RRR, no murmur, no edema Gastrointestinal (Abdomen) normal bowel sounds, soft, nontender, no hepatosplenomegaly Discharge Data Allergies Allergy/AdvReac Type Severity Reaction Status Date / Time dexamethasone Allergy Intermediate HIVES Verified 08/15/21 21:15 latex Allergy Intermediate HIVES Verified 08/15/21 21:15 pregabalin Allergy Intermediate FACE AND Verified 08/15/21 21:15 LIPS SWELLED Sulfa (Sulfonamide Allergy Intermediate LUPUS Verified 08/15/21 21:15 Antibiotics) FLARE UP morphine Allergy Mild local Verified 08/15/21 21:15 reaction at site duloxetine AdvReac Intermediate SEROTONIN Verified 08/15/21 21:15 SYNDROME escitalopram AdvReac Intermediate WENT CRAZY Verified 08/15/21 21:15 sertraline [From Zoloft] AdvReac Intermediate WENT CRAZY Verified 08/15/21 21:15 Consultations 08/15/21 22:17 ED Decision to Admit Stat 08/15/21 23:25 Consult Pain Management Routine 08/20/21 19:43 Consult General Surgery Routine Procedures Performed Operation Date: 08/22/21 14:55 Actual Procedures p Mediport Insertion Right Subclavian - Adair Pink, Ordered Studies 08/15/21 20:32 CT abd pelvis wo con Urgent 08/22/21 14:55 FL fluoro (infusaport) to 1 hr Routine Hospital Course (1) Malaise: 40yo Female here with nonspecific pain, PMH fibromyalgia, presumed Lupus, opioid dependence, takotsubo cardiomyopathy, indwelling PICC line, HTN, peptic ulcer disease. Fibromyalgia - WBC not elevated, CXR showing near total resolution of previous R lobar PNA - acute infection unlikely. No empiric antibiotics indicated. Follow blood cultures. - no evidence of anemia on cbc - CT abdomen and pelvis without acute pathology. - Patient was on Roxicodone 10mg through half of her stay which failed for her. - pain management consulted. -Changed roxycodone 10mg to Nucynta q6h. Nucynta increased from 50 to 75mg. -Patient will need to follow up with a pain or methadone clinic outpatient. -Patient with increase in fluoxetine from 40mg to 60mg, and her Brexpiprazole from 0.5mg to 1mg qhs during stay. Discharged with usual home medication doses. -Case management offered pain clinic options to patient. She settled on [facility] in [place]. Case management sent referral and clinic will contact her for appointment. 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 Port Placement: - Patient insistent on port placement for blood draws when she comes back into hospital due frequent hospital visits. - Tried to talk to patient about alternative route in waiting to see if medication regimen works for her or discuss further or perform in outpatient setting but patient was insistent on being evaluated by surgery for port placement. - Port placed on 08/22 Elevated serum creatinine: Plan: - Cr elevated to 1.54 , BUN at 20 - Creatinine now 1.13 - Consider resolved. Hypokalemia: Plan: - K at 3.1 on admission - replaced to 3.7 (2) Vomiting: (3) Elevated serum creatinine: (4) Hypokalemia: (5) Hypothyroid: Total Time Total Time Spent Total Time Spent (In Minutes): Please see attending attestation. Discharge Plan Discharge Items Patient Disposition: Home - Self-Care Reason For Visit: INTRACTABLE PAIN Discharge Diagnosis: Intractible pain Activity: Per Instructions section Lifting: No more than 25 pounds Bathing Comment: may shower starting 08/23/21; no soaking in tubs/pools Exercise/Sports: Wait until after follow-up appointment Non-emergency contact: Primary Care Provider and Pain Management Call non-emergency contact if: your symptoms worsen, you have a fever, your temperature is above 101.5, your wound has increased redness, your wound has increased drainage and your wound pain has increased Follow-up/Referrals: Adair Pink DO [Surgeon] - 09/16/21 9:45 am () Matt Adame DO [Primary Care Provider] - 08/28/21 10:30 am (DR. SOLORIO) Diet: Regular Addtl Attending Provider Instructions: Your Mediport may be used as early as today A discharge summary will be sent to your primary care physician to ensure continuity of care. You came to the hospital for intractable pain. You were given a regimen of Roxicodone opioid medication and anti-inflammatories which did not dissipate the intractable pain. You were seen by pain management in the hospital who switched you to Nucynta 50mg every 6 hours which did not help after 4 hours. They tried 75mg every 6 hours but that did not help after 4 hours as well. You were switched to 50mg every 4 hours which seemed to help your pain. You are being sent home with a prescription for a month of Nucynta at the same dose and frequency. You also received a port placement from surgery. If you notice any signs of infection at the port site such as increased redness, swelling, or tenderness at the site or fevers/chills please see a provider or come back to the hospital. Follow-up: * You should be seen by your primary physician within the next few weeks. * Please follow up with a pain clinic for continuity of your pain management within the next few weeks. You were given a list of pain clinics by case management, you selected to go to [facility] in [place]. A referral will be sent so please call their clinic and schedule an appointment. Medications: Your medication list has been reviewed and reconciled upon discharge to ensure accuracy and continuity of care. An updated list of all your medications is included with your hospital discharge paperwork. Please review this list closely, and make note of any changes. * You were given a prescription for one month of Nucynta 50mg to take every 6 hours as needed. Please do not exceed this amount or else you may run the risk of increasing tolerance or decline in respirations. Take your medications as instructed; do not skip a dose of your medicines. Make sure all of your doctors know every medicine you are taking (including xigk-qru-bgravgc medicines, vitamins, and supplements). let your primary care provider know before taking any new medicines because some of these may interact with your current medications, or may make your symptoms worse. CONTACT YOUR PRIMARY CARE PROVIDER if you experience any of the following: * Fevers or shaking chills * Shortness of breath not relieved by inhalers, fainting * Sudden abdominal distension not relieved by catheterization. * Difficulty following your treatment plan, or difficulty taking medications CALL 911 OR GO TO THE EMERGENCY DEPARTMENT if you experience any of the f ollowing: * Sudden, severe abdominal pain or nausea/vomiting * Severe chest pain, or chest pain that radiates (moves) to your jaw or arm * Sudden, severe shortness of breath or difficulty breathing It was was our pleasure taking care of you here at [facility] . Thank you for allowing us to participate in your care. Pending Studies at Discharge: No Stand-Alone Forms: My [facility], Smoking Cessation Medications and DC Order Prescriptions: New Nucynta 50 mg tablet 50 mg PO Q4H PRN (Reason: pain) Qty: 60 RF: 0 Continued carvedilol 12.5 mg tablet 12.5 mg PO BID RF: 0 baclofen 10 mg tablet 20 mg PO TID PRN (Reason: Muscle Spasm) RF: 0 gabapentin 300 mg Capsule 900 mg PO TID Qty: 30 RF: 0 levothyroxine 25 mcg tablet 25 mcg PO QAM RF: 0 lubiprostone [Amitiza] 24 mcg capsule 24 mcg PO BID RF: 0 alprazolam 1 mg tablet 1 mg PO BID PRN (Reason: Anxiety) RF: 0 fluoxetine 20 mg capsule 40 mg PO QAM RF: 0 clonidine HCl 0.1 mg tablet 0.1 mg PO DAILY PRN (Reason: High Systolic Blood Pressure. ) RF: 0 metoprolol tartrate [Lopressor] 50 mg tablet 50 mg PO QAM RF: 0 furosemide [Lasix] 20 mg tablet 20 mg PO QAM RF: 0 Emgality Pen 120 mg/mL pen injector 120 mg SUBCUT MO RF: 0 Saccharomyces boulardii [Florastor] 250 mg capsule 250 mg PO BID Qty: 20 RF: 0 ondansetron 4 mg tablet,disintegrating 4 mg PO Q6H PRN (Reason: nausea and vomiting) Qty: 14 RF: 0 pantoprazole [Protonix] 40 mg Tablet,Delayed Release (Dr/Ec) 40 mg PO DAILY RF: 0 New Anti Psycotic 1 tab PO DAILY RF: 0 Discharge Orders: Discharge Order (Routine); Ordered 08/23/21 Ordered By: Brady Lockhart Admission Data Admit Date/Time: 08/18/21 21:43 Attending Provider: Douglas Bauman Admit Provider: Milvia Conn Primary Care Provider: Matt Adame Other Providers: [facility] ; Renny Kidd ; Paco Fernandez ; Mendoza Garcia ; Cruzito Adams ; Edison Adamson ; Davis Nieves Jr ; Adair Pink ; Dioni Palomo ; Kelly Freitas ; Daryl Hugo ; Gama Guzmán Other Interventions: Discharge Summary Assessment (RN) Last Done: 08/23/21 14:07 Supervising Physician Co-Signing Physician Notes Patient seen and examined, chart reviewed, case discussed with Dr. Lockhart and I agree with the assessment and plan as above except as otherwise noted General: A&Ox3. NAD. Cooperative. HEENT: Atraumatic, normocephalic. Pulm: CTAB A&P. -wheezes, -rales, -rhonchi. Symmetrical chest rise. No increase work of breathing. No respiratory distress. Cardiac: RRR, -mrg. Radial pulses intact and symmetrical. Abdominal: Nontender, nondistended, soft. BS present. All labs and images reviewed Patient with longstanding history of chronic pain, fibromyalgia, multiple interventions/trials, and pain management consult. Pain management seen during admission. Patient has failed trials of tramadol, oxycodone, morphine. Placed on Nucynta and recommend moving forward to 50 mg every 4 hours, continuing fluoxetine 60 mg, bexipeprazole. Patient with prior Auth completed for Nucynta 50 mg every 4 hours. Discussed watching for sedation/central nervous suppression, and risk of multiple high-dose pain medications with patient who expresses an understanding of this. She is establishing with pain management however this will take some time as she has to have an initial inpatient visit before they will prescribe her medications. 1 month of Nucynta initially sent to pharmacy, this was not available at her main pharmacy so was canceled and resent to [facility] where a 60 tablet supply was available. Confirmed with her home pharmacy that this order was not filled and canceled, so will not be double filled from both pharmacies. Additional refill/follow-up either per PCP or pain management. Gastroparesis and abdominal discomfort tolerable to her, tole rating meals day of discharge. Time spent preparing discharge including patient counseling, review of labs and images, coordination of care, and documentation 60 minutes. Resident Activity Tracking Resident Involvement: Resident Care Provided Care Provided: Adult [facility]
--- NOTE | 2021-08-23 17:37 | Billing Data ---
Date of Service August 23, 2021 Coding Level of Care Code D/C DAY MANAGEMENT >30 MINS
--- NOTE | 2021-08-26 14:53 | Communication Note ---
Date of Service: August 26, 2021 Received message from patient that she will run out of Nucynta she was prescribed at the time of discharge few days ago. She was suppose to get 30 days supply to last her until she was able to get in with pain management clinic but since pharmacy didn't have enough medication, only 10 days of rx was sent. Dr Lockhart and I contacted the Pain clinic. They have called her to set up appointment today after we spoke to them. She also has appt at PCP clinic on 08/28/2021 for hospital follow up. I have sent 120 tablets of 50mgs nucynta until she is able to get in with pain management. Reiterated the importance of establishing with outpatient pain management clinic and follow up.
== END 2021-08-23 14:33 | disposition home or self-care (01) ==
LOC: EDINP 15:58 → ED 15:58 → SUATTDRO 23:19 → EDINP 08-16 01:59 → 3N 08-16 16:54 → SUATTDRO 08-18 21:43

== ENCOUNTER 2021-09-08 11:17 | Inpatient (IN) ==
[2021-09-08] MEDS ORDERED: KETOROLAC 30 MG/ML VIAL IV ONE ×2 (11:43→18:39)
[2021-09-08] MEDS ORDERED: ALBUT/IPRATROP 3MG/0.5MG NEB 3 ML VIAL NEB STA (11:43)
[2021-09-08] MEDS ORDERED: ONDANSETRON INJ 2 MG/ML 2 ML VIAL IV STA (11:43)
[2021-09-08] MEDS ORDERED: SODIUM CHLORIDE 0.9% 1000ML 1,000 ML IV SCH (11:44)
--- NOTE | 2021-09-08 11:51 | Emergency Department Note ---
Impression & Plan COVID-19, Pleuritic chest pain, Hypertension, Shortness of breath, Nausea ED Provider Note CHIEF COMPLAINT: Illness HISTORY OF PRESENT ILLNESS: Danuta Rader is a 40 year old female with history of fibromyalgia, lupus, gastroparesis, HTN, hypothyroidism, PUD, PE among others listed below who presents to the Emergency Department for evaluation of illness including perceived fevers/chills, nasal congestion, sore throat, non-productive cough, shortness of breath, dyspnea, nausea, vomiting, diarrhea, lack of PO intake, and generalized body aches which has been progressing over the past 3 days. Currently, she rates her discomfort as an 8/10 and she states that she has not been able to keep down any medications secondary to vomiting. She does state that her daughter recently tested +COVID-19 and she assumed that she also had it but has not yet been tested. Due to her worsening symptoms with inability to tolerate PO, she presents to the ED for further evaluation today. The patient is fully vaccinated for COVID-19 and influenza. Of note, the patient was recently admitted to the hospital from 07/18-07/26/22 for R lobar pneumonia and bacteremia, eventually had a PICC line placed for IV therapy due to intolerance to PO antibiotics and received 18 days of IV Omnicef, however this was stopped short due to severe burning pains with infusion which was thought to be causing a flare to her lupus. She did follow up with pain management after that episode, however on 08/15, she presented back to the Emergency Department for intractable pain, general malaise and vomiting. She was admitted to the hospital at that time with TAMIKO and hypokalemia. She did have a normal CT abd/pelvis at that time and had improvement of labs on discharge on 08/23/20. She was seen by pain management during her hospital stay and was prescribed Nucynta 50 mg Q4H for pain control. She also had a port placed by surgery due to poor access with frequent hospital visits. She is not currently receiving anything through her port. REVIEW OF SYSTEMS: 10 systems were reviewed and were negative unless otherwise stated in HPI as above PHYSICAL EXAM: VITALS: Vitals are noted on the nurse's note and reviewed by myself. Hypertensive, additional vital signs stable. General: Resting in bed, appears tired but no acute distress HEENT: Normocephalic, PERRL, EOMI, bilateral TMs clear without abnormal bulging or fluid, no nasal discharge, mucous membranes moist, oropharynx without erythema, edema or exudates Neck: No cervical lymphadenopathy, non-tender Resp: Moderate inspiratory effort on room air, breath sounds clear without wheezing, rales or rhonchi, mild generalized tenderness to palpation of the chest wall CV: Regular rate and rhythm, peripheral pulses palpated Back: Mild tenderness to palpation of the perispinal musculature Abd: Soft, non-tender to palpation MSK: Moving all extremities without apparent pain or difficulty Integumentary: Face is flushed and diaphoretic, no appreciable rash Neuro: Awake, alert, interacting and answering questions appropriately Differential diagnosis includes viral syndrome, bacterial infection, otitis, pharyngitis, COVID-19, pneumonia, influenza, bronchitis, meningitis, sepsis, PE, as well as others were entertained EMERGENCY DEPARTMENT COURSE: Patient with history of fibromyalgia, lupus, gastroparesis, hypertension, hypothyroidism, PUD, PE among others presents for evaluation of illness including perceived fever/chills, nasal congestion, sore throat, nonproductive cough, shortness of breath, dyspnea, nausea, vomiting, diarrhea, lack of p.o. intake and generalized body aches which has been progressing over the past 3 days. She did state that her daughter recently tested positive COVID19, she herself has not yet been tested. She is fully vaccinated for COVID19 and influenza. Physical exam and history were performed as above. Nursing triage notes, EMR, and medication list were personally reviewed. Vital signs were reviewed. The patient was noted to be hypertensive in the 200s systolically. She did state that she has not been able to take any of her home medications including her carvedilol within the last few days secondary to inability to tolerate PO intake. Continuous monitoring engineer: Order was placed for continuous monitoring engineer. Patient was placed on the monitoring engineer. Patient was noted to be in normal sinus rhythm at an initial rate of 86 bpm. EKG was obtained and showed normal sinus rhythm at 67 bpm. No ectopy or concern for acute ischemic change. QT has lengthened when compared to study from 08/19/2021. The patient was offered medications. She was given a DuoNeb breathing treatment as well as IV Toradol and 1 L NSS. Labs were obtained and reviewed by myself as below. Of note, leukopenia with a WBC of 3.76. No concern for anemia with hemoglobin 14.4. Electrolytes WNL. Renal indices stable. LFTs nondiagnostic. Lactate not elevated at 0.8. Troponin not elevated at <0.03. The patient was tested for COVID19 and this was positive. Chest x-ray was obtained and reviewed by radiologist and myself as below. This did show a small focus of airspace opacity in the right lateral lung likely atelectasis versus pneumonia. CT angiogram chest was obtained and reviewed by radiologist and myself as below. This was negative for acute PE. It did show a slight improvement of the focal consolidation in her right lower lobe superior segment compared to prior exam. On exam, the patient stated that she was feeling terrible and did not have improvement after receiving the medications. She was given her home dose of Nucynta, which she was able to take, however she stated that she was not able to tolerate taking the carvedilol due to feeling nauseous. She was given a dose of Reglan with attempts to help her nausea. She was also given a dose of IV hydralazine 5 mg as her blood pressure still remained in the 200s systolically. The patient was reevaluated several times during her stay in the emergency department, however she stated that her symptoms were not improving and she was still not taking anything else by mouth. She was then given a dose of Phenergan to see if this would help her nausea, however she stated that she did not think that she would be able to go home like this due to intractable nausea. I did discuss the patient's case with my attending, Dr. Lopez, who was involved throughout the patient's course of care. Dr. Gutiérrez of the [facility] hospitalist group was then contacted and he agreed to evaluate the patient. The patient verbalized understanding and agreement with the treatment plan. The chart was completed utilizing [employer] Speech Voice Recognition Software. Grammatical errors, random word insertions, pronoun errors, and incomplete sentences are an occasional consequence of this system due to software limitations, ambient noise, and hardware issues. Any formal questions or concerns about the content, text, or information contained within the body of this dictation should be directly addressed to the provider for clarification. Past Med/Surg History Medical History Abdominal pain Acute confusion Acute dehydration Anxiety Chest pain Chronic pain syndrome Confusion Dehydration Depression Fibromyalgia Gastritis Gastroparesis Headache History of kidney infection History of lupus anticoagulant disorder History of migraine History of multiple miscarriages History of ovarian cyst History of umbilical hernia Hypertension Hypertensive urgency Hypothyroidism Intractable epigastric abdominal pain Lupus (04/04/14) Lupus nephritis Osteoarthritis Peptic ulcer disease Pleuritis (09/17/14) history of Poorly-controlled hypertension Post traumatic stress disorder Pulmonary embolism history of Systemic lupus Urinary tract infection Weakness Surgical History H/O: hysterectomy History of removal of Port-a-Cath (07/19/21) Infusaport Removal Dr. Adamson 07/19/2021 History of tonsillectomy and adenoidectomy Hx of appendectomy Hx of cholecystectomy Port-A-Cath in place (08/29/20) Mediport Placement, Left Subclavian Vein Dr. Garcia 08/29/2020 Port-A-Cath in place (08/22/21) Mediport Insertion Right Subclavian - [facility] Pink, 08/22/21 Family History Sister SLE (systemic lupus erythematosus) Family/Other SLE (systemic lupus erythematosus) maternal side Social History Smoking Status: Never smoker Tobacco Type: Cigarettes Age Started Using Tobacco: 23; Age Quit Using Tobacco: 39; Second Hand Exposure: No; Hx Alcohol Use: Yes Alcohol type: beer Hx Substance Use: No Preferred Language: Nigerian Communication Ability: Effective Lube Technician Required: No Beliefs That Will Affect Care: None marital status: Single Current Living Situation: Spouse Current Living Situation Comment: Mickey current occupational status: employed 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 How many Children do You have: 1 Feels Safe at Home: Yes Assistive Devices: Glasses Allergies Allergies Allergy/AdvReac Type Severity Reaction Status Date / Time dexamethasone Allergy Intermediate HIVES Verified 08/15/21 21:15 latex Allergy Intermediate HIVES Verified 08/15/21 21:15 pregabalin Allergy Intermediate FACE AND Verified 08/15/21 21:15 LIPS SWELLED Sulfa (Sulfonamide Allergy Intermediate LUPUS Verified 08/15/21 21:15 Antibiotics) FLARE UP morphine Allergy Mild local Verified 08/15/21 21:15 reaction at site duloxetine AdvReac Intermediate SEROTONIN Verified 08/15/21 21:15 SYNDROME escitalopram AdvReac Intermediate WENT CRAZY Verified 08/15/21 21:15 sertraline [From Zoloft] AdvReac Intermediate WENT CRAZY Verified 08/15/21 21:15 Home Meds Home Medications Medication Instructions Recorded Confirmed alprazolam 1 mg tablet 1 mg PO BID PRN 06/13/21 09/08/21 baclofen 10 mg tablet 20 mg PO TID PRN tab 06/19/21 09/08/21 clonidine HCl 0.1 mg tablet 0.1 mg PO DAILY PRN 07/12/21 09/08/21 fluoxetine 20 mg capsule 40 mg PO QAM 07/12/21 09/08/21 furosemide 20 mg tablet (Lasix) 20 mg PO QAM 07/12/21 09/08/21 galcanezumab-gnlm 120 mg/mL 120 mg SUBCUT MO 07/12/21 09/08/21 subcutaneous pen injector (Emgality Pen) carvedilol 25 mg tablet 25 mg PO BID 09/08/21 09/08/21 ondansetron 4 mg disintegrating 4 mg PO Q8H PRN 09/08/21 09/08/21 tablet Previous Rx's Medication Instructions Recorded gabapentin 300 mg capsule 900 mg PO TID #30 cap 08/30/20 tapentadol 50 mg tablet (Nucynta) 50 mg PO Q4H PRN #60 tab 08/23/21 Results & Data (ED) Vital Signs Vital Signs - 24 hr 09/08/21 11:22 09/08/21 12:02 09/08/21 12:17 Temperature 36.1 C L Temperature Source Temporal Artery Scan Pulse Rate 86 Pulse Rate [Finger] 68 Pulse Rate from SpO2 Sensor Respiratory Rate 18 14 Respiratory Effort / Characteristics Non-Labored Respiratory Depth Normal Blood Pressure 159/100 H Blood Pressure [Left Arm] 214/119 H Blood Pressure [Right Arm] Blood Pressure Mean 119 Blood Pressure Mean [Left Arm] 150 Blood Pressure Mean [Right Arm] Pulse Oximetry 99 99 Oxygen Delivery Method Room Air Room Air Sepsis Recent Fever Within 48 Hours No Sepsis New/Unexplained Change in Mental Status No Sepsis Action Taken by Nursing No Action Required 09/08/21 13:08 09/08/21 14:06 09/08/21 15:00 Temperature Temperature Source Pulse Rate 62 Pulse Rate [Finger] 66 65 63 Pulse Rate from SpO2 Sensor 61 Respiratory Rate 27 H 16 18 Respiratory Effort / Characteristics Non-Labored Respiratory Depth Normal Blood Pressure 200/116 H Blood Pressure [Left Arm] 204/113 H 215/111 H Blood Pressure [Right Arm] 201/103 H 200/116 H Blood Pressure Mean 144 Blood Pressure Mean [Left Arm] 143 145 Blood Pressure Mean [Right Arm] 135 144 Pulse Oximetry 100 100 100 Oxygen Delivery Method Nebulizer Room Air Room Air Sepsis Recent Fever Within 48 Hours Sepsis New/Unexplained Change in Mental Status Sepsis Action Taken by Nursing 09/08/21 16:37 09/08/21 19:03 Temperature Temperature Source Pulse Rate Pulse Rate [Finger] 59 L 68 Pulse Rate from SpO2 Sensor Respiratory Rate 20 16 Respiratory Effort / Characteristics Non-Labored Respiratory Depth Normal Blood Pressure Blood Pressure [Left Arm] Blood Pressure [Right Arm] 215/112 H 189/109 H Blood Pressure Mean Blood Pressure Mean [Left Arm] Blood Pressure Mean [Right Arm] 146 135 Pulse Oximetry 99 97 Oxygen Delivery Method Room Air Room Air Sepsis Recent Fever Within 48 Hours Sepsis New/Unexplained Change in Mental Status Sepsis Action Taken by Nursing Laboratory Data Result diagrams: 09/08/21 12:28 09/08/21 12:28 Lab Results 09/08/21 09/08/21 09/08/21 Range/Units 12:28 12:28 12:28 WBC 3.76 L (4.8-10.8) K/uL RBC 4.80 (4.2-5.4) M/uL Hgb 14.4 (12.0-16.0) g/dL Hct 41.6 (37-47) % MCV 86.7 (80-100) fL MCH 30.0 (25-34) pg MCHC 34.6 (32-36) g/dL RDW Std Deviation 42.0 (36.4-46.3) fL RDW Coeff of Meg 13.1 (11.5-14.5) % Plt Count 245 (130-400) K/uL MPV 10.1 (7.4-10.4) fL Immature Gran % (Auto) 0.0 % Neut % (Auto) 66.5 % Lymph % (Auto) 25.8 % [place] % (Auto) 7.4 % Eos % (Auto) 0.0 % Baso % (Auto) 0.3 % Neut # (Auto) 2.50 (1.4-6.5) K/uL Lymph # (Auto) 0.97 L (1.2-3.4) K/uL [place] # (Auto) 0.28 (0.11-0.59) K/uL Eos # (Auto) 0.00 (0-0.5) K/uL Baso # (Auto) 0.01 (0-0.2) K/uL Immature Gran # (Auto) 0.00 (0.00-0.02) K/uL Sodium 139 (136-145) mmol/L Potassium 3.6 (3.5-5.1) mmol/L Chloride 106 (98-107) mmol/L Carbon Dioxide 22 (21-32) mmol/L Anion Gap 11 (3-11) BUN 14 (6-23) mg/dl Creatinine 0.68 (0.6-1.2) mg/dl Est Cr Clr Drug Dosing Not Reportable Est GFR ( Amer) 126.8 ml/min Est GFR (Non-Af Amer) 109.4 ml/min BUN/Creatinine Ratio 20.6 H (10-20) Glucose 93 (70-99(Fasting)) mg/dl Lactate 0.8 (0.4-2.0) mmol/L Calcium 9.1 (8.5-10.1) mg/dl Phosphorus 1.6 L (2.5-4.9) mg/dl Magnesium 1.7 (1.7-2.4) mg/dl Total Bilirubin 0.4 (0.2-1.0) mg/dl AST 30 (13-39) U/L ALT 23 (7-52) U/L Alkaline Phosphatase 76 (34-104) U/L Troponin I < 0.03 (0-0.04) ng/ml Total Protein 7.6 (6.0-8.3) gm/dl Albumin 4.2 (3.4-5.0) gm/dl Globulin 3.4 (2.5-4.0) gm/dl Albumin/Globulin Ratio 1.2 (0.9-2) Lipase 5 L (11-82) U/L SARS-CoV-2, RNA, NAAT (NEGATIVE) 09/08/21 Range/Units 12:52 WBC (4.8-10.8) K/uL RBC (4.2-5.4) M/uL Hgb (12.0-16.0) g/dL Hct (37-47) % MCV (80-100) fL MCH (25-34) pg MCHC (32-36) g/dL RDW Std Deviation (36.4-46.3) fL RDW Coeff of Meg (11.5-14.5) % Plt Count (130-400) K/uL MPV (7.4-10.4) fL Immature Gran % (Auto) % Neut % (Auto) % Lymph % (Auto) % [place] % (Auto) % Eos % (Auto) % Baso % (Auto) % Neut # (Auto) (1.4-6.5) K/uL Lymph # (Auto) (1.2-3.4) K/uL [place] # (Auto) (0.11-0.59) K/uL Eos # (Auto) (0-0.5) K/uL Baso # (Auto) (0-0.2) K/uL Immature Gran # (Auto) (0.00-0.02) K/uL Sodium (136-145) mmol/L Potassium (3.5-5.1) mmol/L Chloride (98-107) mmol/L Carbon Dioxide (21-32) mmol/L Anion Gap (3-11) BUN (6-23) mg/dl Creatinine (0.6-1.2) mg/dl Est Cr Clr Drug Dosing Est GFR ( Amer) ml/min Est GFR (Non-Af Amer) ml/min BUN/Creatinine Ratio (10-20) Glucose (70-99(Fasting)) mg/dl Lactate (0.4-2.0) mmol/L Calcium (8.5-10.1) mg/dl Phosphorus (2.5-4.9) mg/dl Magnesium (1.7-2.4) mg/dl Total Bilirubin (0.2-1.0) mg/dl AST (13-39) U/L ALT (7-52) U/L Alkaline Phosphatase (34-104) U/L Troponin I (0-0.04) ng/ml Total Protein (6.0-8.3) gm/dl Albumin (3.4-5.0) gm/dl Globulin (2.5-4.0) gm/dl Albumin/Globulin Ratio (0.9-2) Lipase (11-82) U/L SARS-CoV-2, RNA, NAAT POSITIVE A* (NEGATIVE) Administered Medications Famotidine 20 mg/ Syringe 5 mls @ 2.5 mls/min IV BID THAO Stop: 10/08/21 20:59 Last Admin: 09/08/21 20:01 Dose: 2.5 mls/min Documented by: [id number] Potassium Phosphate 15 mmol/ (Sodium Chloride) 255 mls @ 88 mls/hr IV ONE ONE Stop: 09/08/21 22:38 Last Admin: 09/08/21 20:00 Dose: 88 mls/hr Documented by: [id number] Discontinued Medications Albuterol (Albut/Ipratrop 3mg/0.5mg Neb 3 Ml Vial) 3 ml NEB NOW STA; Protocol Stop: 09/08/21 11:44 Last Admin: 09/08/21 12:55 Dose: 3 ml Documented by: [id number] Carvedilol (Carvedilol 25 Mg Tab) 25 mg PO NOW ONE Stop: 09/08/21 14:30 Last Admin: 09/08/21 19:16 Dose: Not Given Documented by: [id number] Hydralazine HCl (Hydralazine Hcl 20 Mg/Ml Vial) 5 mg IV NOW ONE Stop: 09/08/21 17:49 Last Admin: 09/08/21 18:15 Dose: 5 mg Documented by: [id number] Sodium Chloride (Nss 1000ml) 1,000 mls @ 999 mls/hr IV .Q1H1M THAO Stop: 09/08/21 12:44 Last Infusion: 09/08/21 13:48 Dose: 0 mls/hr Documented by: [id number] Admin: 09/08/21 12:47 Dose: 999 mls/hr Documented by: [id number] Promethazine HCl (Phenergan) 12.5 mg in 50.5 mls @ 202 mls/hr IV NOW STA Stop: 09/08/21 16:52 Last Infusion: 09/08/21 17:43 Dose: 0 mls/hr Documented by: [id number] Admin: 09/08/21 17:22 Dose: 202 mls/hr Documented by: [id number] Ioversol (Optiray 320 125ml) 120 ml IV ONCE ONE Stop: 09/08/21 13:37 Last Admin: 09/08/21 13:37 Dose: 120 ml Documented by: [id number] Ketorolac Tromethamine (Ketorolac 30 Mg/Ml Vial) 30 mg IV NOW ONE Stop: 09/08/21 11:44 Last Admin: 09/08/21 12:48 Dose: 30 mg Documented by: [id number] Ketorolac Tromethamine (Ketorolac 30 Mg/Ml Vial) 30 mg IV NOW ONE Stop: 09/08/21 18:40 Last Admin: 09/08/21 20:01 Dose: 30 mg Documented by: [id number] Metoclopramide HCl (Metoclopramide Hcl Inj 5 Mg/Ml 2 Ml Vial) 10 mg IV NOW STA Stop: 09/08/21 14:30 Last Admin: 09/08/21 14:53 Dose: 10 mg Documented by: [id number] Metoprolol Tartrate (Metoprolol Tartrate 1 Mg/Ml Vial) 5 mg IV NOW STA Stop: 09/08/21 16:39 Last Admin: 09/08/21 18:16 Dose: Not Given Documented by: [id number] Ondansetron HCl (Ondansetron Inj 2 Mg/Ml 2 Ml Vial) 4 mg IV NOW STA Stop: 09/08/21 11:44 Last Admin: 09/08/21 12:47 Dose: 4 mg Documented by: [id number] Tapentadol (Tapentadol Hcl 50 Mg Tab) 50 mg PO NOW STA Stop: 09/08/21 13:26 Last Admin: 09/08/21 14:05 Dose: 50 mg Documented by: [id number] Imaging Data Radiologist's Impression: Chest CTA 09/08/21 11:43 CT angio chest PE protocol CLINICAL HISTORY: PE TECHNIQUE: Multidetector row helical CT of the chest was performed. Coronal and sagittal reformations were obtained. Coronal and sagittal MIPS were obtained from the axial data set and were submitted for review. Automated dose lowering techniques and/or adjustment according to patient size were utilized for this exam. Comparison: Comparison is made to CT chest 07/17/2021 FINDINGS: Lungs and pleura: Nodular focus of air space consolidation is seen in the superior segment of the right lower lobe. This is decreased in size overall from prior exam. Heart and pericardium: Cardiomegaly is seen with biatrial enlargement. Vessels: No evidence of pulmonary embolism. Mild atherosclerotic disease is seen in the coronaries. Mediastinum and antonia: Subcentimeter nodes are seen in the mediastinum. Chest wall and lower neck: Unremarkable. Abdomen: Patient is status post cholecystectomy. A hiatal hernia is seen. Bones: Unremarkable. IMPRESSION: 1. No evidence of pulmonary embolism. 2. Interval slight improvement in focal consolidation in the right lower lobe superior segment. Follow-up to resolution is recommended. ACT 112: Negative or not required by law. Electronically signed by: Barrett Ellington M.D. 09/08/2021 1:51 PM Chest X-Ray 09/08/21 11:43 XR chest 1V portable CLINICAL HISTORY: chest pain, sob TECHNIQUE: Single frontal radiograph of the chest was obtained. Comparison: Comparison is made to chest one view 08/22/2021 FINDINGS: No lines and tubes are seen. The cardiomediastinal silhouette is normal. A small focal airspace opacity is seen in the right lateral lung. Lungs are underinfl ated but otherwise clear. No evidence of pleural effusion or pneumothorax. IMPRESSION: Small focus of airspace opacity in the right lateral lung which may represent atelectasis, pneumonia, and/or aspiration. ACT 112: Negative or not required by law. Electronically signed by: Barrett Ellington M.D. 09/08/2021 12:43 PM Discharge Plan Visit Data Chief Complaint: Shortness of Breath/Dyspnea Stated Complaint: SOB,FEVER,COUGH,NAUSEA ED Provider: Michael Lopez ED Midlevel Provider: Stormy Swenson Discharge Problem: COVID-19, Pleuritic chest pain, Hypertension, Shortness of breath, Nausea Patient Disposition: Admitted As Inpatient Discharge Instructions Interventions: ED Discharge Assessment Last Done: 09/08/21 21:02 Forms Stand Alone Forms: [email or web address] Prescriptions Prescriptions: No Action baclofen 10 mg tablet 20 mg PO TID PRN (Reason: Muscle Spasm) RF: 0 gabapentin 300 mg Capsule 900 mg PO TID Qty: 30 RF: 0 carvedilol 25 mg tablet 25 mg PO BID RF: 0 ondansetron 4 mg tablet,disintegrating 4 mg PO Q8H PRN (Reason: nausea and vomiting) RF: 0 alprazolam 1 mg tablet 1 mg PO BID PRN (Reason: Anxiety) RF: 0 fluoxetine 20 mg capsule 40 mg PO QAM RF: 0 clonidine HCl 0.1 mg tablet 0.1 mg PO DAILY PRN (Reason: High Systolic Blood Pressure. ) RF: 0 furosemide [Lasix] 20 mg tablet 20 mg PO QAM RF: 0 Emgality Pen 120 mg/mL pen injector 120 mg SUBCUT MO RF: 0 Nucynta 50 mg tablet 50 mg PO Q4H PRN (Reason: pain) Qty: 60 RF: 0 Referrals Referrals: Matt Adame DO [Primary Care Provider] -
[2021-09-08 12:40] LABS: Basophils # (auto) 0.01 K/uL (0-0.2); Basophils % (auto) 0.3 %; Hematocrit (blood only) 41.6 % (37-47); Hemoglobin 14.4 g/dL (12.0-16.0); Lymphocytes # (auto) 0.97 K/uL (1.2-3.4); Lymphocytes % (auto) 25.8 %; Mean Corpuscular Hgb Conc 34.6 g/dL (32-36); Mean Corpuscular Volume 86.7 fL (80-100); Mean Platelet Volume 10.1 fL (7.4-10.4); Monocytes # (auto) 0.28 K/uL (0.11-0.59); Monocytes % (auto) 7.4 %; Neutrophils % (auto) 66.5 %; Platelet Count 245 K/uL (130-400); RDW Coefficient of Variation 13.1 % (11.5-14.5); White Blood Count 3.76 K/uL (4.8-10.8)
--- NOTE | 2021-09-08 12:44 | XRay Report ---
XR chest 1V portable CLINICAL HISTORY: chest pain, sob TECHNIQUE: Single frontal radiograph of the chest was obtained. Comparison: Comparison is made to chest one view 08/22/2021 FINDINGS: No lines and tubes are seen. The cardiomediastinal silhouette is normal. A small focal airspace opaci ty is seen in the right lateral lung. Lungs are underinflated but otherwise clear. No evidence of ple ural effusion or pneumothorax. IMPRESSION: Small focus of airspace opacity in the right lateral lung which may represent atelectasis, pneumonia, and/or aspiration. ACT 112: Negative or not required by law. Electronically signed by: Barrett Ellington M.D. 09/08/2021 12:43 PM
[2021-09-08 13:04] LABS: Alanine Aminotransferase 23 U/L (7-52); Albumin Globulin Ratio 1.2 (0.9-2); Albumin Level 4.2 gm/dl (3.4-5.0); Alkaline Phosphatase 76 U/L (34-104); Anion Gap 11 (3-11); Aspartate Aminotransferase 30 U/L (13-39); BUN Creatinine Ratio 20.6 (10-20); Bilirubin,Total 0.4 mg/dl (0.2-1.0); Blood Urea Nitrogen 14 mg/dl (6-23); Calcium 9.1 mg/dl (8.5-10.1); Carbon Dioxide 22 mmol/L (21-32); Chloride 106 mmol/L (98-107); Est GFR (African American) 126.8 ml/min; Est GFR (Non-African American) 109.4 ml/min; Globulin 3.4 gm/dl (2.5-4.0); Glucose 93 mg/dl (70-99(Fasting)); Lipase 5 U/L (11-82); Magnesium 1.7 mg/dl (1.7-2.4); Phosphorus 1.6 mg/dl (2.5-4.9); Potassium 3.6 mmol/L (3.5-5.1); Sodium 139 mmol/L (136-145); Total Protein 7.6 gm/dl (6.0-8.3); Troponin I < 0.03 ng/ml (0-0.04)
[2021-09-08] MEDS ORDERED: TAPENTADOL HCL 50 MG TAB PO STA (13:25)
[2021-09-08] MEDS ORDERED: OPTIRAY 320 125ml IV ONE (13:36)
--- NOTE | 2021-09-08 13:52 | CT Scan Report ---
CT angio chest PE protocol CLINICAL HISTORY: PE TECHNIQUE: Multidetector row helical CT of the chest was performed. Coronal and sagittal reformations were obtained. Coronal and sagittal MIPS were obtained from the axial data set and were submitted fo r review. Automated dose lowering techniques and/or adjustment according to patient size were utiliz ed for this exam. Comparison: Comparison is made to CT chest 07/17/2021 FINDINGS: Lungs and pleura: Nodular focus of air space consolidation is seen in the superior segment of the rig ht lower lobe. This is decreased in size overall from prior exam. Heart and pericardium: Cardiomegaly is seen with biatrial enlargement. Vessels: No evidence of pulmonary embolism. Mild atherosclerotic disease is seen in the coronaries. Mediastinum and antonia: Subcentimeter nodes are seen in the mediastinum. Chest wall and lower neck: Unremarkable. Abdomen: Patient is status post cholecystectomy. A hiatal hernia is seen. Bones: Unremarkable. IMPRESSION: 1. No evidence of pulmonary embolism. 2. Interval slight improvement in focal consolidation in the right lower lobe superior segment. Foll ow-up to resolution is recommended. ACT 112: Negative or not required by law. Electronically signed by: Barrett Ellington M.D. 09/08/2021 1:51 PM
[2021-09-08] MEDS ORDERED: METOCLOPRAMIDE HCL INJ 5 MG/ML 2 ML VIAL IV STA (14:29)
[2021-09-08] MEDS ORDERED: carvediloL 25 MG TAB PO ONE (14:29)
[2021-09-08] MEDS ORDERED: METOPROLOL TARTRATE 1 MG/ML VIAL IV STA (16:38)
[2021-09-08] MEDS ORDERED: PROMETHAZINE 12.5 MG/50.5 ML BAG IV STA (16:38)
[2021-09-08] MEDS ORDERED: hydrALAZINE HCL 20 MG/ML VIAL IV ONE (17:48)
--- NOTE | 2021-09-08 18:53 | History & Physical Report ---
Date of Service September 08, 2021 Assessment & Plan (1) Intractable nausea and vomiting: Plan: Patient has intractable nausea vomiting in the past this has been associated fibromyalgia. We will continue supporitve care with PPI IV fluids and symptom relief with antiemetics. (2) COVID: Plan: Incidental diagnosis of COVID positivity not hypoxic no groundglass changes on imaging of her chest. She will be in respiratory isolation no need for telemetry monitoring at this time Patient has leukopenia associated with her COVID will be on lovenox for dvt prevetion (3) Hypertensive urgency: Plan: Patient's blood pressure is up this is typically an issue with her she remained on her carvedilol 25 twice daily we will have IV hydralazine available and place a Catapres patch. Patient typically uses, clonidine at home intermittently to help her hypertension. (4) Fibromyalgia: Plan: increase prozac to 60mg previously on Brexpiprazole but the patient says shes not on it (5) Peptic ulcer disease: Plan: Patient continue on PPI her pharmacy substituted medication (6) Systemic lupus: (7) Electrolyte abnormality: Plan: pt has low phosphorous, will replete (8) DVT prophylaxis: Plan: Patient will be on DVT prevention of enoxaparin given her history of inf lammatory disease and now with COVID History of Present Illness Primary Care Provider: Matt Adame DO 40-year-old female with a past medical history of fibromyalgia who was discharged from our facility on 23 August after she had multiple intolerances to medications for which she was treated for a right lobar pneumonia. She was unable to tolerate oral medications due to persistent history of previous intractable nausea and vomiting. She then was brought in and had PICC line arranged which she then was unable to tolerate a complete course because she felt that the PICC line was causing her to have abdominal pain. And then she was readmitted because she was too weak to do anything with immense exhaustion and pain. This admission from a July to August was felt to be a flareup of her fibromyalgia. She had no physiological changes seen on CT abdomen pelvis to correspond with her abdominal pain nausea vomiting or intolerance of oral medications. During her hospital stay she had her antidepressants increased and was discharged with a month of Nucynta for pain management with follow-up with a pain management clinic. Reportedly she is in the ER unable to tolerate oral medications with elevated blood pressure and intractable nausea and vomiting, she states she did not eat for 2 days nor take any of her medication Incidentally she was found to have COVID without evidence of COVID-pneumonia hypoxia or groundglass changes on CT angiogram of the of the chest Allergies Allergy/AdvReac Type Severity Reaction Status Date / Time dexamethasone Allergy Intermediate HIVES Verified 08/15/21 21:15 latex Allergy Intermediate HIVES Verified 08/15/21 21:15 pregabalin Allergy Intermediate FACE AND Verified 08/15/21 21:15 LIPS SWELLED Sulfa (Sulfonamide Allergy Intermediate LUPUS Verified 08/15/21 21:15 Antibiotics) FLARE UP morphine Allergy Mild local Verified 08/15/21 21:15 reaction at site duloxetine AdvReac Intermediate SEROTONIN Verified 08/15/21 21:15 SYNDROME escitalopram AdvReac Intermediate WENT CRAZY Verified 08/15/21 21:15 sertraline [From Zoloft] AdvReac Intermediate WENT CRAZY Verified 08/15/21 21:15 Home Medications Medication Instructions Recorded Confirmed Type gabapentin 300 mg capsule 900 mg PO TID #30 cap 08/30/20 09/08/21 Rx alprazolam 1 mg tablet 1 mg PO BID PRN 06/13/21 09/08/21 History baclofen 10 mg tablet 20 mg PO TID PRN tab 06/19/21 09/08/21 History clonidine HCl 0.1 mg tablet 0.1 mg PO DAILY PRN 07/12/21 09/08/21 History fluoxetine 20 mg capsule 40 mg PO QAM 07/12/21 09/08/21 History furosemide 20 mg tablet (Lasix) 20 mg PO QAM 07/12/21 09/08/21 History galcanezumab-gnlm 120 mg/mL 120 mg SUBCUT MO 07/12/21 09/08/21 History subcutaneous pen injector (Emgality Pen) tapentadol 50 mg tablet (Nucynta) 50 mg PO Q4H PRN #60 tab 08/23/21 09/08/21 Rx carvedilol 25 mg tablet 25 mg PO BID 09/08/21 09/08/21 History ondansetron 4 mg disintegrating 4 mg PO Q8H PRN 09/08/21 09/08/21 History tablet Past Med/Surg History Medical History (Updated 09/08/21 @ 19:23 by Andrey Gutiérrez MD) Abdominal pain Acute confusion Acute dehydration Anxiety Chest pain Chronic pain syndrome Confusion Dehydration Depression Fibromyalgia Gastritis Gastroparesis Headache History of kidney infection History of lupus anticoagulant disorder History of migraine History of multiple miscarriages History of ovarian cyst History of umbilical hernia Hypertension Hypertensive urgency Hypothyroidism Intractable epigastric abdominal pain Lupus (04/04/14) Lupus nephritis Osteoarthritis Peptic ulcer disease Pleuritis (09/17/14) history of Poorly-controlled hypertension Post traumatic stress disorder Pulmonary embolism history of Systemic lupus Urinary tract infection Weakness Surgical History (Updated 08/23/21 @ 09:13 by Debbie Russell RN) H/O: hysterectomy History of removal of Port-a-Cath (07/19/21) Infusaport Removal Dr. Adamson 07/19/2021 History of tonsillectomy and adenoidectomy Hx of appendectomy Hx of cholecystectomy Port-A-Cath in place (08/29/20) Mediport Placement, Left Subclavian Vein Dr. Garcia 08/29/[address] Port-A-Cath in place (08/22/21) Mediport Insertion Right Subclavian - [facility] Pink, 08/22/21 Family History Sister SLE (systemic lupus erythematosus) Family/Other SLE (systemic lupus erythematosus) maternal side Social History Smoking Status: Never smoker Tobacco Type: Cigarettes Age Started Using Tobacco: 23; Age Quit Using Tobacco: 39; Second Hand Exposure: No; Hx Alcohol Use: Yes Alcohol type: beer Hx Substance Use: No Preferred Language: Maltese Communication Ability: Effective Pizza Maker Required: No Beliefs That Will Affect Care: None marital status: Single Current Living Situation: Spouse Current Living Situation Comment: Mickey current occupational status: employed 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 How many Children do You have: 1 Feels Safe at Home: Yes Assistive Devices: Glasses Review of Systems Review of Systems: Moderate distress and fatigue no headache, no visual changes no speech or swallowing issues no chest pain, pressure or palpitations no shortness of breath, cough or wheezes central crampy abdominal pain, has had some nausea or vomiting & diarrhea no dysuria, hematuria or frequency no focal joint pain or swelling chronic back pain, no CVA tenderness or radicular pain no bruising, bleeding or rashes no focal signs of weakness or numbness or altered sensation no complaints of anxiety or depression.. Physical Exam Physical Exam: The patient appeared well nourished and normally developed. Vital signs as documented. Head exam is normocephalic atraumatic, she is flushed but comfortable Neck is without JVD, thyromegaly, or carotid bruits. Lungs are clear to auscultation, no focal loss of breath sounds Cardiac exam, Rhythm is regular.. No murmurs, rubs or gallops. Abdominal exam reveals normal bowel sounds, soft non tender, no guarding or rebound no masses Extremities are nonedematous and both pedal pulses are present Neurologic exam is alert and oriented, no focal loss of strength or sensation Skin is without bruises or rashes, facial flushing Psychologically is without concerns for anxiety or depression.. Results & Data Results & Data ([facility]) Vital Signs (Past 12 Hours) Vital Signs Temp Pulse Pulse Resp BP BP BP 09/08/21 16:37 59 L 20 215/112 H 09/08/21 15:00 62 63 18 200/116 H 200/116 H 09/08/21 14:06 65 16 215/111 H 201/103 H 09/08/21 13:08 66 27 H 204/113 H 09/08/21 12:02 68 14 214/119 H 09/08/21 11:22 97.0 F L 86 18 159/100 H Pulse Ox 09/08/21 16:37 99 09/08/21 15:00 100 09/08/21 14:06 100 09/08/21 13:08 100 09/08/21 12:02 99 09/08/21 11:22 99 Diagnostic Findings Chest CTA 09/08/21 11:43 CT angio chest PE protocol CLINICAL HISTORY: PE TECHNIQUE: Multidetector row helical CT of the chest was performed. Coronal and sagittal reformations were obtained. Coronal and sagittal MIPS were obtained from the axial data set and were submitted for review. Automated dose lowering techniques and/or adjustment according to patient size were utilized for this exam. Comparison: Comparison is made to CT chest 07/17/2021 FINDINGS: Lungs and pleura: Nodular focus of air space consolidation is seen in the superior segment of the right lower lobe. This is decreased in size overall from prior exam. Heart and pericardium: Cardiomegaly is seen with biatrial enlargement. Vessels: No evidence of pulmonary embolism. Mild atherosclerotic disease is seen in the coronaries. Mediastinum and antonia: Subcentimeter nodes are seen in the mediastinum. Chest wall and lower neck: Unremarkable. Abdomen: Patient is status post cholecystectomy. A hiatal hernia is seen. Bones: Unremarkable. IMPRESSION: 1. No evidence of pulmonary embolism. 2. Interval slight improvement in focal consolidation in the right lower lobe superior segment. Follow-up to resolution is recommended. ACT 112: Negative or not required by law. Electronically signed by: Barrett Ellington M.D. 09/08/2021 1:51 PM Chest X-Ray 09/08/21 11:43 XR chest 1V portable CLINICAL HISTORY: chest pain, sob TECHNIQUE: Single frontal radiograph of the chest was obtained. Comparison: Comparison is made to chest one view 08/22/2021 FINDINGS: No lines and tubes are seen. The cardiomediastinal silhouette is normal. A small focal airspace opacity is seen in the right lateral lung. Lungs are underinflated but otherwise clear. No evidence of pleural effusion or pneumothorax. IMPRESSION: Small focus of airspace opacity in the right lateral lung which may represent atelectasis, pneumonia, and/or aspiration. Electronically signed by: Barrett Ellington M.D. 09/08/2021 12:43 PM Code Status & VTE Plan VTE Prophylaxis Plan VTE Prophylaxis will be ordered: Yes PG Care Time/CCT Total # of Minutes Spent Total Time Spent with Patient: Total time spent is greater than 50% in coordination of care (as documented) at patient's floor/unit and/or counseling patient: Coding Level of Care Code 36010 Initial Inpt Care Lvl 2 Diagnoses Hypertensive urgency I16.0 Peptic ulcer disease K27.9 DVT prophylaxis Z29.9 Systemic lupus M32.9 Intractable nausea and vomiting R11.2 COVID U07.1 Fibromyalgia M79.7 Electrolyte abnormality E87.8
[2021-09-08] MEDS ORDERED: POTASSIUM PHOS 3 MMOL/1 ML INFUSION IV STA (19:25)
[2021-09-08] MEDS ORDERED: POTASSIUM PHOSPHATE 15 MMOL in SODIUM CHLORIDE 0.9% 250 ML IV ONE (19:45)
[2021-09-08] MEDS: FAMOTIDINE 20 MG in SYRINGE 3 ML IV SCH (20:01)
--- NOTE | 2021-09-08 20:26 | Electrocardiogram Report ---
Test Reason : Blood Pressure : / mmHG Vent. Rate : 067 BPM Atrial Rate : 067 BPM P-R Int : 148 ms QRS Dur : 082 ms QT Int : 440 ms P-R-T Axes : 050 043 062 degrees QTc Int : 465 ms Normal sinus rhythm When compared with ECG of 19-AUG-2021 15:47, QT has lengthened Confirmed by Kd Mayers ([id number]) on 09/08/2021 8:25:42 PM Referred By: REFERRED SELF Confirmed By:Flavio Mayers
[2021-09-08] MEDS ORDERED: hydrALAZINE HCL 20 MG/ML VIAL IV PRN (21:47)
[2021-09-08] MEDS ORDERED: ACETAMINOPHEN 1000 MG/100 ML IV IV PRN (21:47)
[2021-09-08] MEDS ORDERED: LORazepam 0.5 MG/1 ML VIAL IV PRN (21:47)
[2021-09-08] MEDS ORDERED: cloNIDine HCL 0.1 MG/24 HR TRANSDERM SYS TD SCH (22:30)
[2021-09-08] MEDS: GABAPENTIN 300 MG CAP PO SCH (23:45)
[2021-09-08] MEDS: carvediloL 25 MG TAB PO SCH (23:45)
[2021-09-08] MEDS: ONDANSETRON 4 MG OD TAB PO PRN (23:45)
[2021-09-09] MEDS: TAPENTADOL HCL 50 MG TAB PO PRN ×6 (00:13→22:02)
[2021-09-09] MEDS: LACTATED RINGER'S 1,000 ML IV SCH ×2 (00:14→09:24)
[2021-09-09] MEDS: CHECK CLONIDINE PATCH PLACEMENT SCH ×2 (00:23→08:38)
[2021-09-09] MEDS ORDERED: HEPARIN 100 UNIT/ML 5ML FLUSH FLUSH PRN (05:10)
[2021-09-09 05:34] LABS: Hematocrit (blood only) 38.2 % (37-47); Hemoglobin 12.8 g/dL (12.0-16.0); Mean Corpuscular Hemoglobin 29.6 pg (25-34); Mean Corpuscular Hgb Conc 33.5 g/dL (32-36); Mean Corpuscular Volume 88.2 fL (80-100); Mean Platelet Volume 9.9 fL (7.4-10.4); Platelet Count 225 K/uL (130-400); RDW Coefficient of Variation 13.4 % (11.5-14.5); RDW Standard Deviation 43.5 fL (36.4-46.3); Red Blood Count 4.33 M/uL (4.2-5.4); White Blood Count 3.46 K/uL (4.8-10.8)
[2021-09-09 05:54] LABS: Albumin Level 3.6 gm/dl (3.4-5.0); BUN Creatinine Ratio 25.8 (10-20); Bilirubin Direct 0.1 mg/dl (0-0.2); Bilirubin,Total 0.4 mg/dl (0.2-1.0); Creatinine Clr Calc Pharmacy 158.8 ml/min; Est GFR (African American) 130.7 ml/min; Est GFR (Non-African American) 112.8 ml/min; Potassium 3.4 mmol/L (3.5-5.1); Total Protein 6.4 gm/dl (6.0-8.3)
[2021-09-09] MEDS: ALPRAZolam 0.5 MG TABLET PO PRN ×2 (06:02→22:03)
[2021-09-09] MEDS ORDERED: FAMOTIDINE 20MG/5ML IV PUSH IV ONE (08:26)
[2021-09-09] MEDS: GABAPENTIN 300 MG CAP PO SCH ×3 (08:39→21:00)
[2021-09-09] MEDS: FLUoxetine HCL 20 MG CAP PO SCH (08:40)
[2021-09-09] MEDS: FAMOTIDINE 20 MG in SYRINGE 3 ML IV SCH ×2 (08:40→20:56)
[2021-09-09] MEDS: carvediloL 25 MG TAB PO SCH ×2 (08:40→20:59)
[2021-09-09] MEDS: ONDANSETRON 4 MG OD TAB PO PRN ×2 (08:50→22:02)
[2021-09-09] MEDS: ENOXAPARIN INJ 40 MG/0.4 ML SYR SQ SCH (08:51)
--- NOTE | 2021-09-09 09:07 | Hospitalist Progress Note ---
Date of Service September 09, 2021 Assessment & Plan Admission and Anticipated Discharge Date Admission Date: September 08, 2021 Results & Data Results & Data ([facility]) Vital Signs (Past 12 Hours) Vital Signs Temp Pulse Resp BP BP Pulse Ox 09/09/21 08:32 36.7 C 69 12 140/75 97 09/09/21 07:00 62 12 95 09/08/21 22:04 78 19 162/99 H 98 09/08/21 21:47 55 L 19 159/89 H 96
[2021-09-09] MEDS: POTASSIUM CHLORIDE 40 MEQ in LACTATED RINGER'S 1,000 ML IV SCH ×2 (10:21→19:57)
[2021-09-09] MEDS ORDERED: METOCLOPRAMIDE HCL INJ 5 MG/ML 2 ML VIAL IV STA (12:00)
[2021-09-09] MEDS ORDERED: METOPROLOL TARTRATE 1 MG/ML VIAL IV STA (12:34)
[2021-09-09] MEDS ORDERED: LOSARTAN POTASSIUM 25 MG TAB PO ONE (13:45)
[2021-09-09] MEDS ORDERED: ACETAMINOPHEN 1000 MG/100 ML IV IV SCH (16:00)
[2021-09-09] MEDS: ACETAMINOPHEN 1,000 MG/100 ML VIAL IV SCH (16:55)
[2021-09-09] MEDS: PROMETHAZINE HCL 25 MG TAB PO PRN (17:55)
--- NOTE | 2021-09-09 22:28 | Internal Med Progress Note ---
Date of Service September 09, 2021 Assessment & Plan Admission and Anticipated Discharge Date Admission Date: September 08, 2021 Results & Data ([facility]) Vital Signs (Past 12 Hours) Vital Signs Temp Pulse Resp BP BP Pulse Ox 09/09/21 22:05 36.7 C 56 L 18 150/83 H 97 09/09/21 19:03 171/101 H 09/09/21 17:36 66 20 142/78 H 96 09/09/21 17:13 74 20 142/78 H 98 09/09/21 14:24 74 15 145/84 H 98 09/09/21 12:55 62 18 152/89 H 97 09/09/21 12:18 61 12 199/102 H 98 09/09/21 12:00 62 14 211/104 H 99
--- NOTE | 2021-09-09 22:30 | Communication Note ---
Date of Service: September 09, 2021 Patient seen and examined with PGY-1 Dr. Barroso. Agree with history, exam findings, assessment and plan of care as outlined. In brief, Ms. Rader is a 40 year old female with history of chronic pain, fibromyalgia, SLE, HTN admitted with intractable nausea, vomiting. Today, she continues to have nausea but no vomiting. Feels that Zofran and reglan was helpful, but Zofran is only effective for an hour or so. No cough or shortness of breath. No fevers. VS and nursing notes reviewed. Non-toxic appearing. Appropriate mood and affect. Labs and imaging reviewed. 1. Intractable nausea, vomiting. PPI, IVFs, Zofran, reglan. 2. COVID. Incidental. Lower suspicion that her nausea, vomiting is related, but does have leukopenia. Continue lovenox for DVT prophylaxis. 3. Fibromyalgia. Continue with increased Prozac dose of 60mg. 4. Chronic pain. Continue home Nucynta. No other opioids while in the hospital. If needed for breakthrough pain, may have Toradol. 5. PUD. Continue PPI. 6. Low phos. Repleted. Monitor lytes in the setting of nausea/vomiting. 7. HTN. Continue home coreg. Start losartan. Monitor renal function. Dispo: pending clinical improvement.
[2021-09-10] MEDS: ACETAMINOPHEN 1,000 MG/100 ML VIAL IV SCH ×3 (02:00→07:49)
[2021-09-10] MEDS: POTASSIUM CHLORIDE 40 MEQ in LACTATED RINGER'S 1,000 ML IV SCH ×3 (03:44→21:18)
[2021-09-10] MEDS: TAPENTADOL HCL 50 MG TAB PO PRN ×5 (06:14→23:45)
[2021-09-10] MEDS: PROMETHAZINE HCL 25 MG TAB PO PRN ×3 (06:19→19:45)
[2021-09-10] MEDS: carvediloL 25 MG TAB PO SCH ×2 (07:59→21:23)
[2021-09-10] MEDS: LOSARTAN POTASSIUM 25 MG TAB PO SCH (07:59)
[2021-09-10] MEDS: ONDANSETRON 4 MG OD TAB PO PRN (08:02)
--- NOTE | 2021-09-10 08:11 | Hospitalist Progress Note ---
Date of Service September 10, 2021 Assessment & Plan (1) Intractable nausea and vomiting: Plan: 40-year-old woman with past medical history of fibromyalgia, anxiety, depression, more recently, COVID-19, who presents to the hospital with a chief complaint of intractable nausea and vomiting. Intractable nausea and vomiting * Zofran, Compazine Hypertension -On Coreg 25 mg twice daily -Pressures increased to the 190s systolic -Start clonidine patch administered on admission, due to concerns for rebound hypertension * Added losartan 25 mg daily to patient's home Coreg regimen. Fibromyalgia * Tylenol 1000 every 8 hours scheduled * Gabapentin 900 mg 3 times daily scheduled * Center 50 mg every 4 hours as needed * Added p.o. Toradol 10 mg every 6 hours as needed Anxiety/depression * Prozac 60 mg * Xanax 1 mg twice daily Peptic ulcer disease * Famotidine 20 mg twice daily p.o. Dispo: COVID-19 unit (2-was) Code: Full code FEN/GI: Full liquid diet DVT Prophylaxis: Lovenox 40 mg SQ every morning (2) Hypertension: (3) Fibromyalgia: (4) COVID: (5) Peptic ulcer disease: Admission and Anticipated Discharge Date Admission Date: September 08, 2021 Supervising Physician Co-Signing Physician Notes Patient seen and examined independently of PGY-1 Dr. Barroso. Agree with history, exam findings, assessment and plan of care as outlined. In brief, Ms. Rader is a 40 year old female with history of chronic pain, fibromyalgia, SLE, HTN admitted with intractable nausea, vomiting. Continues to have nausea, no vomiting. Reporting pain all over that is a level 8. On Nucyta but asking for higher dose. Also notes that she was told that she could increase the dose, but there were is sues with getting insurance approval for the higher dose as an outpatient. She did establish with a chronic pain clinic, but needs 3 visits before they will prescribe medications for her. Also tells me that in the meantime, she was told that the [facility] clinic will be filling her medications. Feels that the Tylenol and Toradol does not help with her pain at all. VS and nursing notes reviewed. Non-toxic appearing. Appropriate mood and affect. Labs and imaging reviewed. 1. Intractable nausea, vomiting. PPI, IVFs, increased Zofran to 8mg, continue PRN reglan. 2. COVID. Incidental. Lower suspicion that her nausea, vomiting is related, but does have leukopenia. Continue lovenox for DVT prophylaxis. 3. Fibromyalgia. Continue with increased Prozac dose of 60mg. 4. Chronic pain. Continue home Nucynta. No other opioids while in the hospital. If needed for breakthrough pain, may have Toradol. No increases in Nucynta. She can take this up with her outpatient provider as it does not make sense to increase the dose here only to have to go back to the lower dose as an outpatient due to inability to get the dose covered. 5. PUD. Continue PPI. 6. Low phos. Repleted. Monitor lytes in the setting of nausea/vomiting. 7. HTN. Continue home coreg. Started losartan. Monitor renal function. Dispo: pending clinical improvement. Subjective No acute events overnight. Patient continues to report nausea despite Zofran, Compazine. Patient endorses "diffuse body pains" and would like to go up on her Nucynta. Patient also complained of chest tightness. Review of Systems Review of Systems: All systems reviewed & are unremarkable except as noted in HPI & below Physical Exam Constitutional: WD/WN, vitals as above Respiratory: normal respiratory effort, lungs clear to auscultation Cardiovascular: RRR, no murmur, no edema Extremities: no pedal edema Gastrointestinal (Abdomen): normal bowel sounds, soft, nontender, no hepatosplenomegaly Results & Data Results & Data ([facility]) Vital Signs (Past 12 Hours) Vital Signs Temp Pulse Resp BP Pulse Ox 09/10/21 07:24 36.9 C 58 L 20 184/94 H 97 09/10/21 06:21 57 L 148/85 H 09/10/21 02:39 36.8 C 65 16 111/69 97 09/09/21 22:05 36.7 C 56 L 18 150/83 H 97 Resident Activity Tracking Resident Involvement: Resident Care Provided Care Provided: Adult Hospital Medicine
[2021-09-10] MEDS ORDERED: LOSARTAN POTASSIUM 25 MG TAB PO SCH (09:00)
[2021-09-10] MEDS: GABAPENTIN 300 MG CAP PO SCH ×3 (09:39→21:21)
[2021-09-10] MEDS: ENOXAPARIN INJ 40 MG/0.4 ML SYR SQ SCH (09:39)
[2021-09-10] MEDS: FLUoxetine HCL 20 MG CAP PO SCH (09:39)
[2021-09-10] MEDS: FAMOTIDINE 20 MG in SYRINGE 3 ML IV SCH (09:45)
[2021-09-10] MEDS: ALPRAZolam 0.5 MG TABLET PO PRN ×2 (09:45→21:23)
[2021-09-10] MEDS ORDERED: ALBUTEROL HFA 8 GM INHALER INH PRN ×2 (10:52→13:51)
[2021-09-10 15:20] LABS: Calcium 8.3 mg/dl (8.5-10.1); Creatinine Clr Calc Pharmacy 142.7 ml/min; Est GFR (African American) 126.2 ml/min; Est GFR (Non-African American) 108.9 ml/min; Phosphorus 2.8 mg/dl (2.5-4.9); Potassium 4.1 mmol/L (3.5-5.1)
[2021-09-10] MEDS: ACETAMINOPHEN 500 MG TAB PO SCH (15:56)
[2021-09-10] MEDS: KETOROLAC TROMETHAMINE 10 MG TABLET PO SCH ×2 (15:56→20:23)
[2021-09-10] MEDS: ONDANSETRON 8MG OD TAB PO PRN (15:59)
[2021-09-10] MEDS: FAMOTIDINE 20 MG TAB PO SCH (21:22)
[2021-09-11] MEDS: KETOROLAC TROMETHAMINE 10 MG TABLET PO SCH ×4 (00:33→17:39)
[2021-09-11] MEDS: ACETAMINOPHEN 500 MG TAB PO SCH ×3 (00:33→16:08)
[2021-09-11] MEDS: TAPENTADOL HCL 50 MG TAB PO PRN ×4 (04:14→22:44)
[2021-09-11] MEDS: POTASSIUM CHLORIDE 40 MEQ in LACTATED RINGER'S 1,000 ML IV SCH ×2 (05:08→13:11)
[2021-09-11] MEDS: PROMETHAZINE HCL 25 MG TAB PO PRN ×3 (05:13→21:34)
[2021-09-11 06:05] LABS: Hematocrit (blood only) 36.7 % (37-47); Hemoglobin 12.1 g/dL (12.0-16.0); Mean Corpuscular Hemoglobin 29.3 pg (25-34); Mean Corpuscular Volume 88.9 fL (80-100); Mean Platelet Volume 9.8 fL (7.4-10.4); Platelet Count 182 K/uL (130-400); RDW Coefficient of Variation 13.2 % (11.5-14.5); Red Blood Count 4.13 M/uL (4.2-5.4); White Blood Count 3.36 K/uL (4.8-10.8)
[2021-09-11 06:24] LABS: BUN Creatinine Ratio 9.2 (10-20); Calcium 7.8 mg/dl (8.5-10.1); Creatinine Clr Calc Pharmacy 129.6 ml/min; Est GFR (African American) 113.7 ml/min; Est GFR (Non-African American) 98.1 ml/min; Potassium 4.3 mmol/L (3.5-5.1)
--- NOTE | 2021-09-11 07:18 | Hospitalist Progress Note ---
Date of Service September 11, 2021 Assessment & Plan (1) Intractable nausea and vomiting: Plan: 40 yo F PMHx fibromyalgia, anxiety, depression, functional dyspepsia, HTN admitted for intractable nausea and vomiting and incidentally diagnosed with COVID-19 on admission. Intractable nausea and vomiting, abdominal pain, functional dyspepsia: - History of persistent abdominal pain and nausea suspected to be secondary to functional dyspepsia. - Has had multiple CT scans without acute pathology, including today. No delayed gastric emptying on previous testing. - Now is narcotic dependent, on Nucynta 50mg q4h as needed for pain. Will not increase Nucynta as patient would not be able to acquire that dosing outpatient, and do not feel that increasing this medication will be of benefit to the patient. - Continue famotidine. - Continue Scheduled Tylenol and Toradol. - Also receiving gabapentin, will increase to 1000mg TID (max dose 3600mg daily) for possible neuropathic contribution to pain. - Ultimately, has pain management established outpatient, but did miss an appointment due to admission. Will need follow up on discharge. Hypertension: - With significant improvement in BP this stay with the addition of losartan 25mg daily. - Continue Coreg 25mg BID. - Hydralazine ordered as needed for SBP >185. COVID-19: - Incidentally diagnosed on admission testing. - Some complaints of rhinorrhea/infrequent cough over the last few days, otherwise no difficulties. - No steroids or remdesivir at this time given relatively asymptomatic. Fibromyalgia, anxiety, depression: - Pain control as described above. - Continue Prozac at 60mg daily. - Home Xanax 1mg PO BID as needed for anxiety. Code Status: FULL CODE FEN: Regular diet DVT ppx: Lovenox 40mg daily, ambulate on demand Dispo: COVID unit, med/surg (2) Hypertension: (3) Fibromyalgia: (4) COVID: Admission and Anticipated Discharge Date Admission Date: September 08, 2021 Supervising Physician Co-Signing Physician Notes Patient seen and examined independently of PGY-3 Dr. Velasco. Agree with history, exam findings, assessment and plan of care as outlined. In brief, Ms. Rader is a 40 year old female with history of chronic pain, fibromyalgia, SLE, HTN admitted with intractable nausea, vomiting. Continues to have nausea, no vomiting. Intermittent cough, but not bringing anything up. Reporting pain all over. VS and nursing notes reviewed. Non-toxic appearing. +bowel sounds; distractible with palpation of the abdomen. +mild tenderness in the LLQ. Appropriate mood and affect. Labs and imaging reviewed. 1. Intractable nausea, vomiting. PPI, dc IVFs, continue Zofran to 8mg, continue PRN Reglan. 2. Abdominal pain. Hx of slow transit, but not gastroparesis. Previously seen by motility specialist. 3. COVID. Incidental. Lower suspicion that her nausea, vomiting is related, but does have leukopenia. Continue lovenox for DVT prophylaxis. 4. Fibromyalgia. Continue with increased Prozac dose of 60mg. 5. Chronic pain. Continue home Nucynta. No other opioids while in the hospital. If needed for breakthrough pain, may have Toradol. No increases in Nucynta. She can take this up with her outpatient provider as it does not make sense to increase the dose here only to have to go back to the lower dose as an outpatient due to inability to get the dose covered. Increased gabapentin to 1000mg TID, increased Toradol to 15mg. Continue with 1g Tylenol TID. 6. PUD. Continue PPI. 7. Low phos. Repleted. Monitor lytes in the setting of nausea/vomiting. 8. HTN. Continue home coreg. Continue losartan, which was started this hospitalization. Monitor renal function. Dispo: pending clinical improvement. Subjective Patient with continued abdominal pain and nausea without vomiting. Denies fevers or chills, shortness of breath. Infrequent nonproductive cough. Review of Systems Review of Systems: All systems reviewed & are unremarkable except as noted in HPI & below Physical Exam Constitutional: WD/WN, vitals as above Respiratory: normal respiratory effort, lungs clear to auscultation Cardiovascular: RRR, no murmur, no edema Gastrointestinal (Abdomen): normal bowel sounds, soft, nontender, no hepatosplenomegaly (Able to press deeply into abdomen when auscultating with mild wince) Pain worse with abdominal palpation using my hands Skin: no rashes, warm and dry Psychiatric: A+Ox3, euthymic affect Results & Data Results & Data ([facility]) Vital Signs (Past 12 Hours) Vital Signs Temp Pulse Resp BP Pulse Ox 09/11/21 03:00 36.5 C 86 20 147/90 H 90 09/10/21 22:54 36.7 C 62 20 100/55 L 98 Resident Activity Tracking Resident Involvement: Resident Care Provided Care Provided: Adult Hospital Medicine
[2021-09-11] MEDS: ENOXAPARIN INJ 40 MG/0.4 ML SYR SQ SCH (08:45)
[2021-09-11] MEDS: carvediloL 25 MG TAB PO SCH ×2 (08:46→21:21)
[2021-09-11] MEDS: LOSARTAN POTASSIUM 25 MG TAB PO SCH (08:47)
[2021-09-11] MEDS: GABAPENTIN 300 MG CAP PO SCH ×2 (08:47→13:13)
[2021-09-11] MEDS: FAMOTIDINE 20 MG TAB PO SCH ×2 (08:47→21:21)
[2021-09-11] MEDS: ALPRAZolam 0.5 MG TABLET PO PRN ×2 (08:47→21:25)
[2021-09-11] MEDS: FLUoxetine HCL 20 MG CAP PO SCH (08:47)
[2021-09-11] MEDS ORDERED: OPTIRAY 320 100ml IV ONE (09:54)
[2021-09-11] MEDS: ONDANSETRON 8MG OD TAB PO PRN (10:29)
--- NOTE | 2021-09-11 11:33 | CT Scan Report ---
CT abd pelvis IV con only CLINICAL HISTORY: Continued abdominal pain TECHNIQUE: Helical axial images of the abdomen and pelvis were obtained and displayed. Automated dose lowering techniques and/or adjustment according to patient size were utilized for this exam. This e xam was performed with intravenous contrast. COMPARISON: Comparison is made to CT abdomen pelvis 08/15/2021 FINDINGS: Lower chest: Trace bilateral pleural effusions are seen. There is a 4 mm pleural-based nodularity at the left lung base (series 3 image 31). Trace atelectasis is seen. Liver: Focal fatty changes are noted about the falciform ligament. Gallbladder and biliary tree: No calcified gallstones. Normal caliber wall. No intra- or extrahepatic biliary ductal dilation. Pancreas: Unremarkable, no focal lesions. Spleen: Unremarkable. Adrenals: Unremarkable. Kidneys and ureters: Unremarkable. Bladder: Unremarkable. Reproductive organs: Patient is status post hysterectomy. Multiple cystic lesions are again seen in t he left adnexa. Bowel: Unremarkable. Lymph nodes Retroperitoneal: Unremarkable. Mesenteric: Unremarkable. Pelvic: Unremarkable. Peritoneum: Normal. Vessels: Unremarkable. Abdominal wall: Unremarkable. Bones: Pars defects are noted in the left at L2 and on the right at L1. Degenerative changes are seen most prominent at L5-S1. IMPRESSION: No acute abnormality to explain abdominal pain. Multiple cystic lesions are again seen in the left ad nexa, similar in appearance to prior exam. ACT 112: Negative or not required by law. Electronically signed by: Barrett Ellington M.D. 09/11/2021 11:32 AM
[2021-09-11] MEDS ORDERED: GABAPENTIN 100 MG CAP PO SCH (14:00)
[2021-09-11] MEDS ORDERED: GABAPENTIN 100 MG CAP PO ONE (14:30)
[2021-09-11] MEDS: GABAPENTIN 800 MG TAB PO SCH ×2 (16:09→21:20)
[2021-09-11] MEDS: GABAPENTIN 100 MG CAP PO SCH ×2 (16:09→21:20)
[2021-09-11] MEDS: ONDANSETRON 4 MG OD TAB PO PRN (17:42)
[2021-09-11] MEDS ORDERED: KETOROLAC TROMETHAMINE 10 MG TABLET PO SCH (18:00)
[2021-09-12] MEDS: ACETAMINOPHEN 500 MG TAB PO SCH ×3 (00:01→16:17)
[2021-09-12] MEDS: KETOROLAC TROMETHAMINE 10 MG TABLET PO SCH ×4 (00:02→18:17)
[2021-09-12] MEDS: TAPENTADOL HCL 50 MG TAB PO PRN ×5 (02:51→19:54)
[2021-09-12] MEDS: PROMETHAZINE HCL 25 MG TAB PO PRN ×2 (05:45→12:18)
[2021-09-12] MEDS: ONDANSETRON 4 MG OD TAB PO PRN ×2 (07:50→16:15)
[2021-09-12] MEDS: carvediloL 25 MG TAB PO SCH ×2 (08:27→19:55)
[2021-09-12] MEDS: FAMOTIDINE 20 MG TAB PO SCH ×2 (08:27→19:56)
[2021-09-12] MEDS: ALPRAZolam 0.5 MG TABLET PO PRN ×2 (08:30→20:03)
[2021-09-12] MEDS: ENOXAPARIN INJ 40 MG/0.4 ML SYR SQ SCH (08:31)
[2021-09-12] MEDS: FLUoxetine HCL 20 MG CAP PO SCH (08:31)
[2021-09-12] MEDS: GABAPENTIN 100 MG CAP PO SCH (08:32)
[2021-09-12] MEDS: GABAPENTIN 800 MG TAB PO SCH (08:32)
[2021-09-12] MEDS: LOSARTAN POTASSIUM 25 MG TAB PO SCH (08:32)
--- NOTE | 2021-09-12 10:52 | Hospitalist Progress Note ---
Date of Service September 12, 2021 Assessment & Plan (1) Intractable nausea and vomiting: Plan: 40 yo F PMHx fibromyalgia, anxiety, depression, functional dyspepsia, HTN admitted for intractable nausea and vomiting and incidentally diagnosed with COVID-19 on admission. Intractable nausea and vomiting, abdominal pain, functional dyspepsia: - History of persistent abdominal pain and nausea suspected to be secondary to functional dyspepsia. - Has had multiple CT scans without acute pathology, including today. No delayed gastric emptying on previous testing. - Narcotic dependent, on Nucynta 50mg q4h as needed for pain. Will not increase Nucynta /opiates as patient would not be able to acquire that dosing outpatient, and do not feel that increasing these medications will be of benefit to the patient. - Continue famotidine for GERD, home Miralax and Amitiza BID for constipation. - Continue Scheduled Tylenol and Toradol. - Also receiving gabapentin, will increase to 1200mg TID for neuropathic contribution to pain. - Suspect some "flare" in chronic pain syndrome secondary to COVID-19 diagnosis. - Ultimately, has pain management established outpatient, but did miss an appointment due to admission. Will need follow up on discharge. Hypertension: - With significant improvement in BP this stay with the addition of losartan 25mg daily. - Continue Coreg 25mg BID. - Hydralazine ordered as needed for SBP >185. - Continue medication adjustment outpatient by PCP for BP control. COVID-19: - Incidentally diagnosed on admission testing. - Some complaints of rhinorrhea/infrequent cough over the last few days, otherwise no difficulties. - No IV steroids or remdesivir at this time given relatively asymptomatic. - Albuterol inh q6h as needed for chest tightness/wheezing. Fibromyalgia, anxiety, depression: - Pain control as described above. - Continue Prozac at 60mg daily. - Home Xanax 1mg PO BID as needed for anxiety. Code Status: FULL CODE FEN: Regular diet DVT ppx: Lovenox 40mg daily, ambulate on demand Dispo: COVID unit, Med/Surg (2) Hypertension: (3) Fibromyalgia: (4) COVID: Admission and Anticipated Discharge Date Admission Date: September 08, 2021 Supervising Physician Co-Signing Physician Notes Patient seen and examined with PGY-3 Dr. Velasco. Agree with history, exam findings, assessment and plan of care as outlined. In brief, Ms. Rader is a 40 year old female with history of chronic pain, fibromyalgia, SLE, HTN admitted with intractable nausea, vomiting. Continues to have nausea, no vomiting. Intermittent cough, but not bringing anything up. Chest tightness that is often relieved by albuterol. Reporting pain all over. VS and nursing notes reviewed. Non-toxic appearing. +bowel sounds; distractible with palpation of the abdomen. Appropriate mood and affect. Labs and imaging reviewed. 1. Intractable nausea, vomiting. PPI, dc IVFs, continue Zofran to 8mg, continue PRN Reglan. 2. Abdominal pain. Hx of slow transit, but not gastroparesis. Previously seen by motility specialist. 3. COVID. Incidental. Lower suspicion that her nausea, vomiting is related, but does have leukopenia. Albuterol PRN. Flutter valve. Continue lovenox for DVT prophylaxis. 4. Fibromyalgia. Continue with increased Prozac dose of 60mg. 5. Chronic pain. Continue home Nucynta. No other opioids while in the hospital. If needed for breakthrough pain, may have Toradol. No increases in Nucynta. She can take this up with her outpatient provider as it does not make sense to increase the dose here only to have to go back to the lower dose as an outpatient due to inability to get the dose covered. Increased gabapentin to 1200mg TID, increased Toradol to 15mg. Continue with 1g Tylenol TID. 6. PUD. Continue PPI. 7. Low phos. Repleted. Monitor lytes in the setting of nausea/vomiting. 8. HTN. Continue home coreg. Continue losartan, which was started this hospitalization. Monitor renal function. Dispo: pending clinical improvement. Subjective Overnight patient had abdominal and full body pain, overall feeling more tired and worn out today as compared to other days this hospital stay. Some chest tightness with deep breaths improved with albuterol inh. Review of Systems Review of Systems: All systems reviewed & are unremarkable except as noted in HPI & below Physical Exam Constitutional: WD/WN, vitals as above Respiratory: normal respiratory effort, lungs clear to auscultation Cardiovascular: RRR, no murmur, no edema Gastrointestinal (Abdomen): normal bowel sounds, soft, nontender, no hepatosplenomegaly (Distractable on exam; no pain when using stethoscope) Skin: no rashes, warm and dry Psychiatric: A+Ox3, euthymic affect Results & Data Results & Data ([facility]) Vital Signs (Past 12 Hours) Vital Signs Temp Pulse Resp BP Pulse Ox 09/12/21 10:14 57 L 16 97 09/12/21 07:36 36.7 C 56 L 20 160/92 H 97 Resident Activity Tracking Resident Involvement: Resident Care Provided Care Provided: Adult Hospital Medicine
[2021-09-12] MEDS: GABAPENTIN 600 MG TAB PO SCH ×2 (14:26→19:56)
[2021-09-12] MEDS: LUBIPROSTONE 8 MCG CAP PO SCH (19:57)
[2021-09-12] MEDS: POLYETHYLENE (MIRALAX) 17 GM PACK PO SCH (19:58)
[2021-09-13] MEDS: ACETAMINOPHEN 500 MG TAB PO SCH ×3 (00:02→15:35)
[2021-09-13] MEDS: KETOROLAC TROMETHAMINE 10 MG TABLET PO SCH ×4 (00:03→17:40)
[2021-09-13] MEDS: TAPENTADOL HCL 50 MG TAB PO PRN ×5 (00:03→18:28)
[2021-09-13 06:28] LABS: Hemoglobin 12.2 g/dL (12.0-16.0); Mean Corpuscular Hemoglobin 29.5 pg (25-34); Mean Corpuscular Volume 89.4 fL (80-100); Mean Platelet Volume 10.1 fL (7.4-10.4); Platelet Count 190 K/uL (130-400); RDW Coefficient of Variation 13.2 % (11.5-14.5); RDW Standard Deviation 43.3 fL (36.4-46.3); Red Blood Count 4.14 M/uL (4.2-5.4); White Blood Count 5.04 K/uL (4.8-10.8)
[2021-09-13 06:57] LABS: BUN Creatinine Ratio 14.9 (10-20); Calcium 8.1 mg/dl (8.5-10.1); Creatinine Clr Calc Pharmacy 133.1 ml/min; Est GFR (African American) 117.5 ml/min; Est GFR (Non-African American) 101.3 ml/min
--- NOTE | 2021-09-13 07:04 | Hospitalist Progress Note ---
Date of Service September 13, 2021 Assessment & Plan (1) Intractable nausea and vomiting: Plan: 40 yo F PMHx fibromyalgia, anxiety, depression, functional dyspepsia, HTN admitted for intractable nausea and vomiting and incidentally diagnosed with COVID-19 on admission. Intractable nausea and vomiting, abdominal pain, functional dyspepsia: - History of persistent abdominal pain and nausea suspected to be secondary to functional dyspepsia. - Has had multiple CT scans without acute pathology, including today. No delayed gastric emptying on previous testing. - Narcotic dependent, on Nucynta 50mg q4h as needed for pain. Will not increase Nucynta /opiates as patient would not be able to acquire that dosing outpatient, and do not feel that increasing these medications will be of benefit to the patient. - Continue famotidine for GERD, home Miralax and Amitiza BID for constipation. - Continue Scheduled Tylenol and Toradol. - Also receiving gabapentin, will increase to 1200mg TID for neuropathic contribution to pain. - Suspect some "flare" in chronic pain syndrome secondary to COVID-19 diagnosis. - Ultimately, has pain management established outpatient, but did miss an appointment due to admission. Will need follow up on discharge. Hypertension: - With significant improvement in BP this stay with the addition of losartan 25mg daily. - Continue Coreg 25mg BID. - Hydralazine ordered as needed for SBP >185. - Continue medication adjustment outpatient by PCP for BP control. COVID-19: - Incidentally diagnosed on admission testing. - Some complaints of rhinorrhea/infrequent cough over the last few days, otherwise no difficulties. - No IV steroids or remdesivir at this time given relatively asymptomatic. - Albuterol inh q6h as needed for chest tightness/wheezing. Fibromyalgia, anxiety, depression: - Pain control as described above. - Continue Prozac at 60mg daily. - Home Xanax 1mg PO BID as needed for anxiety. Code Status: FULL CODE FEN: Regular diet DVT ppx: Lovenox 40mg daily, ambulate on demand Dispo: COVID unit, Med/Surg (2) Hypertension: (3) Fibromyalgia: (4) COVID: Admission and Anticipated Discharge Date Admission Date: September 08, 2021 Supervising Physician Co-Signing Physician Notes Attending attestation Pt seen and examined in concert with Dr. Barroso. In agreement with the documented findings as noted in the resident documentation with any exceptions or additions as noted here. 40 year old female with history of chronic pain, fibromyalgia, SLE, HTN admitted with intractable nausea, vomiting. Nausea well controlled on present regimen and tolerating POI. Mild nonproductive cough without reported SOB, tightness resolved w/ albuterol use PRN. On examination, S1/S2 nl RRR no MCG. CTAB. Abd NT/ND BS+ve. VS, nursing notes, labs and imaging reviewed. Intractable n/v - continue PPI, ondansetron and Reglan Chronic pain w/ new abdominal pain w/ h/o SLOW TRANSIT w/o gastroparesis - continue outpatient pain regimen, follow up w/ Dr Wendi MA-19 - mild symptoms at present, encourage albuterol use and precaution re: worsening/changing symtoms Fibromyalgia - continue fluoxetine 60mg, gabapentin 1200mg TID and APAP 1000mg q8 Else see resident documentation as noted. Total attending time spent with this patient on the day of discharge: 35 minutes. Results & Data Results & Data ([facility]) Vital Signs (Past 12 Hours) Vital Signs Temp Pulse Resp BP Pulse Ox 09/12/21 23:00 36.9 C 54 L 18 115/68 96
[2021-09-13] MEDS ORDERED: FUROSEMIDE 20 MG TAB PO SCH (09:00)
[2021-09-13] MEDS: ALPRAZolam 0.5 MG TABLET PO PRN (09:55)
[2021-09-13] MEDS: carvediloL 25 MG TAB PO SCH (09:57)
[2021-09-13] MEDS: ENOXAPARIN INJ 40 MG/0.4 ML SYR SQ SCH (09:57)
[2021-09-13] MEDS: FLUoxetine HCL 20 MG CAP PO SCH (10:01)
[2021-09-13] MEDS: LUBIPROSTONE 8 MCG CAP PO SCH (10:01)
[2021-09-13] MEDS: POLYETHYLENE (MIRALAX) 17 GM PACK PO SCH (10:01)
[2021-09-13] MEDS: LOSARTAN POTASSIUM 25 MG TAB PO SCH (10:01)
[2021-09-13] MEDS: GABAPENTIN 600 MG TAB PO SCH ×2 (10:01→14:23)
[2021-09-13] MEDS: FAMOTIDINE 20 MG TAB PO SCH (10:56)
[2021-09-13] MEDS: PROMETHAZINE HCL 25 MG TAB PO PRN (11:57)
--- NOTE | 2021-09-13 15:35 | Discharge Summary ---
Date of Service September 13, 2021 Admission HPI Per Admitting Provider 40-year-old female with a past medical history of fibromyalgia who was discharged from our facility on 23 August after she had multiple intolerances to medications for which she was treated for a right lobar pneumonia. She was unable to tolerate oral medications due to persistent history of previous intractable nausea and vomiting. She then was brought in and had PICC line arranged which she then was unable to tolerate a complete course because she felt that the PICC line was causing her to have abdominal pain. And then she was readmitted because she was too weak to do anything with immense exhaustion and pain. This admission from a July to August was felt to be a flareup of her fibromyalgia. She had no physiological changes seen on CT abdomen pelvis to correspond with her abdominal pain nausea vomiting or intolerance of oral medications. During her hospital stay she had her antidepressants increased and was discharged with a month of Nucynta for pain management with follow-up with a pain management clinic. Reportedly she is in the ER unable to tolerate oral medications with elevated blood pressure and intractable nausea and vomiting, she states she did not eat for 2 days nor take any of her medication Incidentally she was found to have COVID without evidence of COVID-pneumonia hypoxia or groundglass changes on CT angiogram of the of the chest Admission Exam Per Admitting Provider Intractable nausea and vomiting Principal Diagnosis Intractable nausea and vomiting, hypertension Discharge Exam Constitutional WD/WN, vitals as above Respiratory normal respiratory effort, lungs clear to auscultation Cardiovascular RRR, no murmur, no edema Extremities: no pedal edema Gastrointestinal (Abdomen) normal bowel sounds, soft, nontender, no hepatosplenomegaly Discharge Data Allergies Allergy/AdvReac Type Severity Reaction Status Date / Time dexamethasone Allergy Intermediate HIVES Verified 08/15/21 21:15 latex Allergy Intermediate HIVES Verified 08/15/21 21:15 pregabalin Allergy Intermediate FACE AND Verified 08/15/21 21:15 LIPS SWELLED Sulfa (Sulfonamide Allergy Intermediate LUPUS Verified 08/15/21 21:15 Antibiotics) FLARE UP morphine Allergy Mild local Verified 08/15/21 21:15 reaction at site duloxetine AdvReac Intermediate SEROTONIN Verified 08/15/21 21:15 SYNDROME escitalopram AdvReac Intermediate WENT CRAZY Verified 08/15/21 21:15 sertraline [From Zoloft] AdvReac Intermediate WENT CRAZY Verified 08/15/21 21:15 Consultations 09/08/21 18:36 ED Decision to Admit Stat Ordered Studies 09/08/21 11:43 CT angio chest PE protocol Stat 09/11/21 07:15 CT abd pelvis IV con only Routine Hospital Course (1) Intractable nausea and vomitin yo F PMHx fibromyalgia, anxiety, depression, functional dyspepsia, HTN admitted for intractable nausea and vomiting and incidentally diagnosed with COVID-19 on admission. Intractable nausea and vomiting, abdominal pain, functional dyspepsia: - History of persistent abdominal pain and nausea suspected to be secondary to functional dyspepsia. - Has had multiple CT scans without acute pathology, including today. No delayed gastric emptying on previous testing. - Narcotic dependent, on Nucynta 50mg q4h as needed for pain. Will not increase Nucynta /opiates as patient would not be able to acquire that dosing outpatient, and do not feel that increasing these medications will be of benefit to the patient. - Patient initially started on Zofran and Compazine, then gradually weaned as she was able to tolerate liquids and solids. - Continue famotidine for GERD, home Miralax and Amitiza BID for constipation. - Continue Scheduled Tylenol and Toradoldiscontinued Toradol on discharge - Also receiving gabapentin, increased to 1200mg TID from 900 mg for neuropathic contribution to pain. New prescription sent to pharmacy on discharge. Hypertension - With significant improvement in BP this stay with the addition of losartan 25mg daily. - Continue Coreg 25mg BID. - Hydralazine ordered as needed for SBP >185 - Discharged home on losartan 25 mg daily and home Coreg (25 mg twice daily) regimen. - Continue medication adjustment outpatient by PCP for BP control. COVID-19 - Incidentally diagnosed on admission testing. - Some complaints of rhinorrhea/infrequent cough over the last few days, otherwise no difficulties. - No IV steroids or remdesivir at this time given relatively asymptomatic. - Albuterol inh q6h as needed for chest tightness/wheezing. Fibromyalgia, anxiety, depression - Pain control as described above. - Continue Prozac at 60mg daily. - Home Xanax 1mg PO BID as needed for anxiety. (2) Hypertension: (3) Fibromyalgia: (4) COVID: Total Time Total Time Spent Total Time Spent (In Minutes): <30 Discharge Plan Discharge Items Patient Disposition: Home - Self-Care Reason For Visit: INTRACTABLE NAUSEA/VOMITING, COVID Discharge Diagnosis: Intractable nausea and vomiting Activity: Per Instructions section Non-emergency contact: Primary Care Provider Call non-emergency contact if: you have any medication questions, your symptoms worsen, your pain is worsening and your temperature is above 101 Follow-up/Referrals: Matt Adame DO [Primary Care Provider] - Diet: Regular Addtl Attending Provider Instructions: Dear Danuta, You were admitted to the hospital for management of your nausea and vomiting. While you were here, we treated you, we also addressed your other health c oncerns. During your stay here, your nausea improved to the point you were able to tolerate liquids, and then solids. As a result, we feel that you are ready to be discharged home. Please read the following carefully, as it includes information to help you manage her health until you are seen by your primary care physician. It has been organized in a manner that would help will be easy to understand. Also, unless explicitly mentioned here, continue to manage as before. Nausea/vomiting, abdominal pain -Continue taking your Nucynta at home as prescribed, every 4 hours. -We increased your gabapentin to 1200 mg 3 times daily, from 900 mg 3 times daily. A prescription will be sent to your pharmacy. -Otherwise, follow-up with your primary care physician, Dr. Adame, for continued management of your pain regimen, including refills. -In addition to your at home medications, you were managed on Tylenol, 1000 mg every 8 hours during your stay here. You can take the same dose, every 8 hours, as needed for pain. Do not exceed 3000 mg a day. Hypertension -Continue your carvedilol, or Coreg, 25 mg twice daily. -We stopped the clonidine that was listed in your home med list after you were admitted. Do not take again unless otherwise instructed by your primary care physician. -We added a new medication, Losartan, 25 mg, to be taken once daily. We have sent this new prescription to your pharmacy. Continue to take unless otherwise instructed by your primary care physician. COVID-19 -You do not require any steroids or antiviral treatment, as you were relatively asymptomatic. Fibromyalgia, anxiety, depression -Please see above (nausea/vomiting, abdominal pain) for further instructions with respect to pain regimen. -We increased your Prozac to 60 mg a day, from 40 mg. We are sending a new prescription to your pharmacy at the new dose. Please continue to take unless otherwise instructed by your primary care physician. -Continue your home Xanax 1 mg twice daily as needed for anxiety. It has been a pleasure taking care of you here at [facility]. Please do not hesitate to reach out to us if you have any questions. Pending Studies at Discharge: No Stand-Alone Forms: My [facility], Smoking Cessation Medications and DC Order Prescriptions: New gabapentin 600 mg Tablet 1,200 mg PO TID 14 Days Qty: 84 RF: 0 losartan 25 mg Tablet 25 mg PO DAILY 14 Days Qty: 14 RF: 0 fluoxetine 20 mg Capsule 60 mg PO QAM 14 Days Qty: 42 RF: 0 Continued baclofen 10 mg tablet 20 mg PO TID PRN (Reason: Muscle Spasm) RF: 0 carvedilol 25 mg tablet 25 mg PO BID RF: 0 ondansetron 4 mg tablet,disintegrating 4 mg PO Q8H PRN (Reason: nausea and vomiting) RF: 0 alprazolam 1 mg tablet 1 mg PO BID PRN (Reason: Anxiety) RF: 0 furosemide [Lasix] 20 mg tablet 20 mg PO QAM RF: 0 Emgality Pen 120 mg/mL pen injector 120 mg SUBCUT MO RF: 0 Nucynta 50 mg tablet 50 mg PO Q4H PRN (Reason: pain) Qty: 60 RF: 0 Discontinued gabapentin 300 mg Capsule 900 mg PO TID Qty: 30 RF: 0 fluoxetine 20 mg capsule 40 mg PO QAM RF: 0 clonidine HCl 0.1 mg tablet 0.1 mg PO DAILY PRN (Reason: High Systolic Blood Pressure. ) RF: 0 Discharge Orders: Discharge Order (Routine); Ordered 09/13/21 Ordered By: Mode Barroso Admission Data Admit Date/Time: 09/08/21 18:42 Attending Provider: Deric Ryan Admit Provider: Andrey Gutiérrez Primary Care Provider: Matt Adame Other Providers: Andrey Gutiérrez Other Interventions: Discharge Summary Assessment (RN) Last Done: 09/13/21 17:06 Supervising Physician Co-Signing Physician Notes Attending attestation Pt seen and examined in concert with Dr. Barroso. In agreement with the documented findings as noted in the resident documentation with any exceptions or additions as noted here. 40 year old female with history of chronic pain, fibromyalgia, SLE, HTN admitted with intractable nausea, vomiting. Nausea well controlled on present regimen and tolerating POI. Mild nonproductive cough without reported SOB, tightness resolved w/ albuterol use PRN. On examination, S1/S2 nl RRR no MCG. CTAB. Abd NT/ND BS+ve. VS, nursing notes, labs and imaging reviewed. Intractable n/v - continue PPI, ondansetron and Reglan Chronic pain w/ new abdominal pain w/ h/o SLOW TRANSIT w/o gastroparesis - continue outpatient pain regimen, follow up w/ Dr Wendi MA-19 - mild symptoms at present, encourage albuterol use and precaution re: worsening/changing symtoms Fibromyalgia - continue fluoxetine 60mg, gabapentin 1200mg TID and APAP 1000mg q8 Else see resident documentation as noted. Total attending time spent with this patient on the day of discharge: 35 minutes. Resident Activity Tracking Resident Involvement: Resident Care Provided Care Provided: Adult Hospital Medicine
--- NOTE | 2021-09-23 22:57 | Hospitalist Progress Note ---
Date of Service September 09, 2021 Assessment & Plan (1) Intractable nausea and vomiting: Plan: 40 yo F PMHx fibromyalgia, anxiety, depression, functional dyspepsia, HTN admitted for intractable nausea and vomiting and incidentally diagnosed with COVID-19 on admission. Intractable nausea and vomiting, abdominal pain, functional dyspepsia: - History of persistent abdominal pain and nausea suspected to be secondary to functional dyspepsia. - Has had multiple CT scans without acute pathology, including today. No delayed gastric emptying on previous testing. - Narcotic dependent, on Nucynta 50mg q4h as needed for pain. Will not increase Nucynta /opiates as patient would not be able to acquire that dosing outpatient, and do not feel that increasing these medications will be of benefit to the patient. - Zofran, Compazine - Continue famotidine for GERD, home Miralax and Amitiza BID for constipation. - Continue Scheduled Tylenol and Toradol - Gabapentin 900 mg TID for neuropathic contribution to pain. Hypertension - Continue Coreg 25mg BID. - Stopped clonidine ordered on admission - Hydralazine ordered as needed for SBP >185 - Continue medication adjustment outpatient by PCP for BP control. COVID-19 - Incidentally diagnosed on admission testing. - Some complaints of rhinorrhea/infrequent cough over the last few days, otherwise no difficulties. - No IV steroids or remdesivir at this time given relatively asymptomatic. - Albuterol inh q6h as needed for chest tightness/wheezing. Fibromyalgia, anxiety, depression - Pain control as described above. - Continue Prozac at 60mg daily. - Home Xanax 1mg PO BID as needed for anxiety. (2) Fibromyalgia: (3) COVID: Admission and Anticipated Discharge Date Admission Date: September 08, 2021 Supervising Physician Co-Signing Physician Notes please see separate attending attestation. Subjective NAEON. Pt. in no acute distress. She reports some abdominal pain and nausea but denies vomiting. Pt. still unable to tolerate PO diet at this time. She has no other complaints or concerns at this time. Review of Systems Review of Systems: All systems reviewed & are unremarkable except as noted in HPI & below Physical Exam Constitutional: WD/WN, vitals as above Respiratory: normal respiratory effort, lungs clear to auscultation Cardiovascular: RRR, no murmur, no edema Extremities: no pedal edema Gastrointestinal (Abdomen): normal bowel sounds, soft, nontender, no hepatosplenomegaly Resident Activity Tracking Resident Involvement: Resident Care Provided Care Provided: Adult [facility] Medicine
== END 2021-09-13 18:37 | disposition home or self-care (01) | DRG 391 ==
LOC: ED 11:17 → SUATTDRO 18:42 → EDINP 18:42 → 2W 09-09 21:51

== ENCOUNTER 2021-11-14 15:01 | Inpatient (IN) ==
--- NOTE | 2021-11-14 15:08 | Emergency Department Note ---
Impression & Plan Pneumonia, Acute electrocardiogram changes, Dehydration, Chest pain ED Provider Note NAME: JOSUE BENJAMIN AGE: 40 SEX: F : 1980 ARRIVES VIA: Walk-In INFORMANT: Patient, ED PROVIDER(S): Michael Lopez MD Chief Complaint: Outpatient referral, weakness, fatigue, low-grade temperature, cough, chest pain HPI: Patient presents with the above symptoms which began last Thursday The patient states that she has had a little bit of a low-grade temperature and states that it is range anywhere from 100.8-102 The patient has had cough but it is not productive. The patient did have some right-sided chest pain and thought that this might have been the source of her cough. Patient has had a little bit of fatigue and weakness but denies any shortness of breath or lower extremity swelling. Patient does have a port in the right chest and states that she had a small pimple that was concerned as she had a prior infected port on the left side. Patient denies any exertional chest pain or shortness of breath. Patient was referred here she was seen in the office and they thought that maybe she had some diminished breath sounds in the right chest. Patient denies any tick bites or recent travel. Patient does state that she does have a child that was having some similar symptoms at home. ROS: See HPI for pertinent positives and negatives. A total of 10 systems were reviewed and otherwise negative. Past medical history: See below Surgical history: See below Social history: See below Physical Exam: GENERAL: NAD, wearing glasses, wearing a mask, non-toxic. EYE EXAM: Normal conjunctiva. PERRL, no anisocoria and EOM's grossly intact w/o pain. OROPHARYNX: Moist mucus membranes. Grossly normal dentition. NECK: Supple, no nuchal rigidity, no adenopathy, non-tender. No signs of meningismus. Chest: Right chest port with well-healed incisional scar, no overlying crepitus cellulitis, induration or fluctuance. LUNGS: Clear to auscultation. Normal chest wall mechanics. HEART: NSR, no MRG. ABDOMEN: Abdomen soft, non-tender, normo-active bowel sounds, no masses, no rebound or guarding. BACK: No CVA TTP. SKIN: No rashes and no bruising. UPPER EXTREMITIES: Upper extremities are grossly normal. No asymmetry or swelling of the bilateral upper extremities. LOWER EXTREMITIES: Grossly normal, no edema. Negative Homans' sign bilaterally. NEURO EXAM: A&O x3, cranial nerves II-XII grossly intact, normal speech, moves all 4 extremities on command w/o issue. Differential diagnoses: Infection, dehydration, metabolic abnormality, hypo/hyperglycemia, electrolyte disturbance, anemia, hypoxia, cardiac sources, intracerebral event, toxicologic, neurologic, as well as other pathologies. Course: Patient was seen and evaluated the bedside. Full history physical exam was performed. EKG interpreted by me Normal sinus rhythm, rate of 69, normal intervals, normal axis, T wave version in lead III as well as anteriorly. These are new changes from comparison EKG September 08, 2021. Imaging Studies: See Below Cardiac monitoring: An order was placed for continuous cardiac monitoring. The monitor shows a rate of 72 with sinus rhythm. MDM: Patient was seen due to concern for right-sided chest pain and diminished breath sounds. The patient has had a recurrence of a pneumonia or opacity in the right chest intermittently for the last several months. The patient did have blood work completed along with a chest x-ray EKG and troponin. Patient's blood work showed a normal white count H&H and platelet count. The patient's kidney function does show some prerenal azotemia. Troponin not detectable. Covid negative. Chest x-ray shows a right subpleural opacity. This is unchanged from comparison CT of the chest from August 2021. Patient was ordered Augmentin and azithromycin. EKG does show some changes. In light of this being think that the patient should stay for further observation and treatment. The patient has had CT angiography's in the past that been negative but a repeat CT angiography was ordered. The patient does not have an oxygen requirement this time. This is pending at the time of admission. I did speak with the on-call hospitalist Dr. De La Torre and the patient was admitted to the medicine service. Past Med/Surg History Medical History Abdominal pain Acute confusion Acute dehydration Anxiety Chest pain Chronic pain syndrome Confusion COVID-19 Dehydration Depression Gastritis Headache History of kidney infection History of lupus anticoagulant disorder History of migraine History of multiple miscarriages History of ovarian cyst History of umbilical hernia Hypertension Hypertension Hypertensive urgency Hypothyroidism Intractable epigastric abdominal pain Lupus (04/04/14) Lupus nephritis Osteoarthritis Peptic ulcer disease Peptic ulcer disease Pleuritis (09/17/14) history of Poorly-controlled hypertension Post traumatic stress disorder Pulmonary embolism history of Shortness of breath Urinary tract infection Weakness Surgical History H/O: hysterectomy History of removal of Port-a-Cath (07/19/21) Infusaport Removal Dr. Adamson 07/19/2021 History of tonsillectomy and adenoidectomy Hx of appendectomy Hx of cholecystectomy Port-A-Cath in place (08/29/20) Mediport Placement, Left Subclavian Vein Dr. Garcia 08/29/2020 Port-A-Cath in place (08/22/21) Mediport Insertion Right Subclavian - [place] Pink, 08/22/21 Family History Sister SLE (systemic lupus erythematosus) Family/Other SLE (systemic lupus erythematosus) maternal side Social History Smoking Status: Former smoker Tobacco Type: Cigarettes Age Started Using Tobacco: 23; Age Quit Using Tobacco: 39; Second Hand Exposure: No; Hx Alcohol Use: Yes Alcohol type: beer Hx Substance Use: No Preferred Language: Mohawk Communication Ability: Effective Flying I Instructor Required: No Beliefs That Will Affect Care: None marital status: Single Current Living Situation: Spouse Current Living Situation Comment: Mickey current occupational status: employed 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 How many Children do You have: 1 Feels Safe at Home: Yes Assistive Devices: Glasses Allergies Allergies Allergy/AdvReac Type Severity Reaction Status Date / Time dexamethasone Allergy Intermediate HIVES Verified 11/14/21 20:10 latex Allergy Intermediate HIVES Verified 11/14/21 20:10 pregabalin Allergy Intermediate FACE AND Verified 11/14/21 20:10 LIPS SWELLED Sulfa (Sulfonamide Allergy Intermediate LUPUS Verified 11/14/21 20:10 Antibiotics) FLARE UP morphine Allergy Mild local Verified 11/14/21 20:10 reaction at site duloxetine AdvReac Intermediate SEROTONIN Verified 11/14/21 20:10 SYNDROME escitalopram AdvReac Intermediate WENT CRAZY Verified 11/14/21 20:10 sertraline [From Zoloft] AdvReac Intermediate WENT CRAZY Verified 11/14/21 20:10 Home Meds Home Medications Medication Instructions Recorded Confirmed alprazolam 1 mg tablet 1 mg PO BID PRN 06/13/21 09/08/21 baclofen 10 mg tablet 20 mg PO TID PRN tab 06/19/21 09/08/21 furosemide 20 mg tablet (Lasix) 20 mg PO QAM 07/12/21 09/08/21 galcanezumab-gnlm 120 mg/mL 120 mg SUBCUT MO 07/12/21 09/08/21 subcutaneous pen injector (Emgality Pen) carvedilol 25 mg tablet 25 mg PO BID 09/08/21 09/08/21 ondansetron 4 mg disintegrating 4 mg PO Q8H PRN 09/08/21 09/08/21 tablet Previous Rx's Medication Instructions Recorded tapentadol 50 mg tablet (Nucynta) 50 mg PO Q4H PRN #60 tab 08/23/21 Results & Data (ED) Vital Signs Vital Signs - 24 hr 11/14/21 15:02 11/14/21 15:33 11/14/21 16:44 Temperature 36.1 C L Temperature Source Temporal Artery Scan Pulse Rate 74 Pulse Rate [Finger] Respiratory Rate 18 Respiratory Effort / Characteristics Non-Labored Spontaneous Non-Labored Spontaneous Respiratory Depth Normal Normal Respiratory Pattern Regular Regular Blood Pressure 168/105 H Blood Pressure Mean 126 Blood Pressure Position Sitting Pulse Oximetry 98 96 96 Oxygen Delivery Method Room Air Room Air Room Air Oxygen Flow Rate 97 Sepsis Recent Fever Within 48 Hours No Sepsis New/Unexplained Change in Mental Status No Sepsis Action Taken by Nursing No Action Required 11/14/21 19:33 Temperature Temperature Source Pulse Rate Pulse Rate [Finger] 67 Respiratory Rate 21 Respiratory Effort / Characteristics Non-Labored Respiratory Depth Normal Respiratory Pattern Blood Pressure Blood Pressure Mean Blood Pressure Position Pulse Oximetry 93 Oxygen Delivery Method Room Air Oxygen Flow Rate Sepsis Recent Fever Within 48 Hours Sepsis New/Unexplained Change in Mental Status Sepsis Action Taken by [facility] Medications Current Medication List: was personally reviewed by me Laboratory Data Attestation: I reviewed the patient's lab results. Result diagrams: 11/14/21 16:30 11/14/21 16:30 Lab Results 03/31/22 03/31/22 03/31/22 Range/Units 16:30 16:30 16:30 WBC 7.93 (4.8-10.8) K/uL RBC 4.88 (4.2-5.4) M/uL Hgb 14.2 (12.0-16.0) g/dL Hct 41.7 (37-47) % MCV 85.5 (80-100) fL MCH 29.1 (25-34) pg MCHC 34.1 (32-36) g/dL RDW Std Deviation 43.3 (36.4-46.3) fL RDW Coeff of Meg 14.0 (11.5-14.5) % Plt Count 317 (130-400) K/uL MPV 9.9 (7.4-10.4) fL Immature Gran % (Auto) 0.5 % Neut % (Auto) 72.4 % Lymph % (Auto) 21.3 % Florence % (Auto) 4.2 % Eos % (Auto) 1.3 % Baso % (Auto) 0.3 % Neut # (Auto) 5.75 (1.4-6.5) K/uL Lymph # (Auto) 1.69 (1.2-3.4) K/uL Florence # (Auto) 0.33 (0.11-0.59) K/uL Eos # (Auto) 0.10 (0-0.5) K/uL Baso # (Auto) 0.02 (0-0.2) K/uL Immature Gran # (Auto) 0.04 H (0.00-0.02) K/uL Sodium 139 (136-145) mmol/L Potassium 4.0 (3.5-5.1) mmol/L Chloride 108 H (98-107) mmol/L Carbon Dioxide 23 (21-32) mmol/L Anion Gap 8 (3-11) BUN 23 (6-23) mg/dl Creatinine 0.84 (0.6-1.2) mg/dl Est Cr Clr Drug Dosing 112.2 ml/min Est GFR ( Amer) 100.8 ml/min Est GFR (Non-Af Amer) 86.9 ml/min BUN/Creatinine Ratio 27.4 H (10-20) Glucose 92 (70-99(Fasting)) mg/dl Calcium 9.1 (8.5-10.1) mg/dl Magnesium 2.0 (1.7-2.4) mg/dl Total Bilirubin 0.5 (0.2-1.0) mg/dl AST 20 (13-39) U/L ALT 17 (7-52) U/L Alkaline Phosphatase 56 (34-104) U/L Troponin I < 0.03 (0-0.04) ng/ml Total Protein 7.1 (6.0-8.3) gm/dl Albumin 3.9 (3.4-5.0) gm/dl Globulin 3.2 (2.5-4.0) gm/dl Albumin/Globulin Ratio 1.2 (0.9-2) TSH 1.100 (0.300-4.500) uIu/ml SARS-CoV-2, RNA, NAAT (NEGATIVE) 11/14/21 Range/Units 17:10 WBC (4.8-10.8) K/uL RBC (4.2-5.4) M/uL Hgb (12.0-16.0) g/dL Hct (37-47) % MCV (80-100) fL MCH (25-34) pg MCHC (32-36) g/dL RDW Std Deviation (36.4-46.3) fL RDW Coeff of Meg (11.5-14.5) % Plt Count (130-400) K/uL MPV (7.4-10.4) fL Immature Gran % (Auto) % Neut % (Auto) % Lymph % (Auto) % Florence % (Auto) % Eos % (Auto) % Baso % (Auto) % Neut # (Auto) (1.4-6.5) K/uL Lymph # (Auto) (1.2-3.4) K/uL Florence # (Auto) (0.11-0.59) K/uL Eos # (Auto) (0-0.5) K/uL Baso # (Auto) (0-0.2) K/uL Immature Gran # (Auto) (0.00-0.02) K/uL Sodium (136-145) mmol/L Potassium (3.5-5.1) mmol/L Chloride (98-107) mmol/L Carbon Dioxide (21-32) mmol/L Anion Gap (3-11) BUN (6-23) mg/dl Creatinine (0.6-1.2) mg/dl Est Cr Clr Drug Dosing ml/min Est GFR ( Amer) ml/min Est GFR (Non-Af Amer) ml/min BUN/Creatinine Ratio (10-20) Glucose (70-99(Fasting)) mg/dl Calcium (8.5-10.1) mg/dl Magnesium (1.7-2.4) mg/dl Total Bilirubin (0.2-1.0) mg/dl AST (13-39) U/L ALT (7-52) U/L Alkaline Phosphatase (34-104) U/L Troponin I (0-0.04) ng/ml Total Protein (6.0-8.3) gm/dl Albumin (3.4-5.0) gm/dl Globulin (2.5-4.0) gm/dl Albumin/Globulin Ratio (0.9-2) TSH (0.300-4.500) uIu/ml SARS-CoV-2, RNA, NAAT NEGATIVE (NEGATIVE) Administered Medications Discontinued Medications Amoxicillin/Clavulanate Potassium (Amoxicillin/Clavulanate 875 Mg Tab) 1 tab PO NOW ONE Stop: 11/14/21 18:42 Last Admin: 11/14/21 18:57 Dose: 1 tab Documented by: [id number] Azithromycin (Azithromycin 250 Mg Tab) 500 mg PO NOW ONE Stop: 11/14/21 18:42 Last Admin: 11/14/21 18:57 Dose: 500 mg Documented by: [id number] Sodium Chloride (Nss 1000ml) 1,000 mls @ 999 mls/hr IV .Q1H1M THAO Stop: 11/14/21 16:30 Last Infusion: 11/14/21 18:22 Dose: 0 mls/hr Documented by: [id number] Admin: 11/14/21 16:38 Dose: 999 mls/hr Documented by: [id number] Tapentadol (Tapentadol Hcl 50 Mg Tab) 50 mg PO NOW STA Stop: 11/14/21 16:47 Last Admin: 11/14/21 18:21 Dose: 50 mg Documented by: [id number] Imaging Data Radiologist's Impression: Chest X-Ray 11/14/21 15:23 XR chest 1V portable HISTORY: 40 years-old Female cough, R chest pain acute cough with right-sided chest pain COMPARISON: Chest radiograph and CTA chest 09/08/2021 TECHNIQUE: Portable AP view of the chest FINDINGS: Cardiac silhouette is enlarged. Right subclavian Nwtigw-w-Zynm catheter is unchanged with distal tip in the expected location of the brachiocephalic SVC confluence. There is no pneumothorax, large pleural effusion or overt pulmonary edema. Ill-defined consolidative opacity subpleural right lower lobe appears unchanged and better characterized on the comparison CTA of the chest. The bones appear grossly intact. IMPRESSION: 1. No acute process. 2. Unchanged ill-defined consolidative subpleural opacity of the right lower lobe, better characterized on the 09/08/2021 CTA of the chest. ACT 112: Negative or not required by law. The above report was generated using voice recognition software. It may contain grammatical, syntax or spelling errors. Electronically signed by: Misael Drew M.D. 11/14/2021 4:32 PM Discharge Plan Visit Data Chief Complaint: Respiratory Problems Stated Complaint: CHEST PAIN, FEVER, WANTS TO CHECK OUT PNUEMONIA ED Provider: Michael Lopez Discharge Problem: Pneumonia, Acute electrocardiogram changes, Dehydration, Chest pain Condition: Good Discharge Instructions Matty/Other Patient Handouts: Treating Pneumonia Activity Restrictions/Additional Instructions: Please return to the emergency department if you have worsening or recurrent symptoms not amenable to at-home treatment. Please call for a follow-up appoi ntment with her primary care physician. Please take your medications as prescribed. If you have other concerns and/or complaints please feel free to also call your primary care physician's office or return the ED for further evaluation, management, and treatment. Take your medications as prescribed. If taking an antibiotic consider taking a probiotic and/or eating yogurt, but at the least, please take with food as it can cause upset stomach. If culture results are not available at discharge, if they are positive for concern of infection, you will be informed of the results as soon as they are available. Please return with any worsening or concerning symptoms. You have been examined and treated today on an emergency basis only. This is not a substitute for, or an effort to provide, complete comprehensive medical care. It is impossible to recognize and treat all injuries or illnesses in a single emergency department visit. It is therefore important that you follow up closely with [facility], your PCP, and/or your specialist(s). Call as soon as possible for an appointment. Thank you for your time and consideration. I look forward to speaking with you again soon. Please don't hesitate to call us if you have any questions. Forms Stand Alone Forms: My [facility] Prescriptions Prescriptions: No Action baclofen 10 mg tablet 20 mg PO TID PRN (Reason: Muscle Spasm) RF: 0 carvedilol 25 mg tablet 25 mg PO BID RF: 0 ondansetron 4 mg tablet,disintegrating 4 mg PO Q8H PRN (Reason: nausea and vomiting) RF: 0 alprazolam 1 mg tablet 1 mg PO BID PRN (Reason: Anxiety) RF: 0 furosemide [Lasix] 20 mg tablet 20 mg PO QAM RF: 0 Emgality Pen 120 mg/mL pen injector 120 mg SUBCUT MO RF: 0 Nucynta 50 mg tablet 50 mg PO Q4H PRN (Reason: pain) Qty: 60 RF: 0 Referrals Referrals: Matt Adame DO [Primary Care Provider] -
[2021-11-14] MEDS ORDERED: SODIUM CHLORIDE 0.9% 1000ML 1,000 ML IV SCH (15:30)
--- NOTE | 2021-11-14 16:33 | XRay Report ---
XR chest 1V portable HISTORY: 40 years-old Female cough, R chest pain acute cough with right-sided chest pain COMPARISON: Chest radiograph and CTA chest 09/08/2021 TECHNIQUE: Portable AP view of the chest FINDINGS: Cardiac silhouette is enlarged. Right subclavian Bovhwl-w-Hrgo catheter is unchanged with distal tip in the expected location of the brachiocephalic SVC confluence. There is no pneumothorax, large pleur al effusion or overt pulmonary edema. Ill-defined consolidative opacity subpleural right lower lobe a ppears unchanged and better characterized on the comparison CTA of the chest. The bones appear grossl y intact. IMPRESSION: 1. No acute process. 2. Unchanged ill-defined consolidative subpleural opacity of the right lower lobe, better characteriz ed on the 09/08/2021 CTA of the chest. ACT 112: Negative or not required by law. The above report was generated using voice recognition software. It may contain grammatical, syntax o r spelling errors. Electronically signed by: Misael Drew M.D. 11/14/2021 4:32 PM
[2021-11-14] MEDS ORDERED: TAPENTADOL HCL 50 MG TAB PO STA (16:46)
[2021-11-14 16:57] LABS: Basophils # (auto) 0.02 K/uL (0-0.2); Basophils % (auto) 0.3 %; Eosinophils % (auto) 1.3 %; Hematocrit (blood only) 41.7 % (37-47); Hemoglobin 14.2 g/dL (12.0-16.0); Immature Granulocytes # (auto) 0.04 K/uL (0.00-0.02); Immature Granulocytes % (auto) 0.5 %; Lymphocytes # (auto) 1.69 K/uL (1.2-3.4); Lymphocytes % (auto) 21.3 %; Mean Corpuscular Hemoglobin 29.1 pg (25-34); Mean Corpuscular Hgb Conc 34.1 g/dL (32-36); Mean Corpuscular Volume 85.5 fL (80-100); Mean Platelet Volume 9.9 fL (7.4-10.4); Monocytes # (auto) 0.33 K/uL (0.11-0.59); Monocytes % (auto) 4.2 %; Neutrophils # (auto) 5.75 K/uL (1.4-6.5); Neutrophils % (auto) 72.4 %; Platelet Count 317 K/uL (130-400); RDW Standard Deviation 43.3 fL (36.4-46.3); Red Blood Count 4.88 M/uL (4.2-5.4); White Blood Count 7.93 K/uL (4.8-10.8)
[2021-11-14 17:23] LABS: Troponin I < 0.03 ng/ml (0-0.04)
[2021-11-14 17:28] LABS: Alanine Aminotransferase 17 U/L (7-52); Albumin Globulin Ratio 1.2 (0.9-2); Albumin Level 3.9 gm/dl (3.4-5.0); Alkaline Phosphatase 56 U/L (34-104); Anion Gap 8 (3-11); Aspartate Aminotransferase 20 U/L (13-39); BUN Creatinine Ratio 27.4 (10-20); Bilirubin,Total 0.5 mg/dl (0.2-1.0); Blood Urea Nitrogen 23 mg/dl (6-23); Calcium 9.1 mg/dl (8.5-10.1); Carbon Dioxide 23 mmol/L (21-32); Chloride 108 mmol/L (98-107); Creatinine Clr Calc Pharmacy 112.2 ml/min; Est GFR (African American) 100.8 ml/min; Est GFR (Non-African American) 86.9 ml/min; Globulin 3.2 gm/dl (2.5-4.0); Glucose 92 mg/dl (70-99(Fasting)); Sodium 139 mmol/L (136-145); Total Protein 7.1 gm/dl (6.0-8.3)
[2021-11-14] MEDS ORDERED: AZITHROMYCIN 250 MG TAB PO ONE (18:41)
[2021-11-14] MEDS ORDERED: AMOXICILLIN/CLAVULANATE 875 MG TAB PO ONE (18:41)
--- NOTE | 2021-11-14 19:44 | History & Physical Report ---
Date of Service November 14, 2021 Assessment & Plan (1) Pleuritic chest pain: Plan: -Worse with respirations, non-positional, without palpitations, diaphoresis. Not particularly concerning for ACS, does have evidence of a RLL focal consolidation see on CXR that had previously been seen on chest CTA in July 2021 at which point pt was treated for pneumonia. She reports fevers, fatigue, and myalgias at home for one week. No WBC count. This may be a lupus flair? -Repeat chest CT showed No pulmonary emboli, continued decreased size of the irregular subpleural opacity within the superior segment of the right lower lobe now measuring up to 2.5 cm. Findings are suggestive of postinflammatory scarring with atelectasis. Unchanged 1.9 cm irregular density within the upper outer quadrant of the right breast. This could be correlated with follow-up breast ultrasound if not already conducted. -Right port in place without surrounding erythema, edema; blood cultures sent. -Trend troponin Q6 x2, EKG with new or worsening chest pain. (2) Fibromyalgia: Plan: -Current pain regimen consists of Nucynta 50 mg PO Q4h, baclofen 20mg TID, and gabapentin 800mg QID. -Continue this, will not increase dose or add on additional narcotics at this point as patient is narcotic dependent, it is unlikely further pain medications would be of any benefit to patient, risks outweighing benefits. (3) Lupus: Plan: -Pain/flair management as above. (4) HTN (hypertension): Plan: -HTNsive today 168/105. Has had episodes of hypertensive urgency in the past, will order PRN hydralazine. -Continue carvedilol 25 mg BID. (5) Hypothyroidism: Plan: -TSH 1.100 today. -Continue Synthroid 25 mcg daily. (6) Depression: Plan: -Continue alprazolam 1 mg PO BID prn. -Continue Prozac 60mg daily. Plan: -Observation on med/surg with tele while trending troponin. -SCDs, Lovenox for DVT ppx. -Full Code. History of Present Illness Chief Complaint: Right-sided chest pain Primary Care Provider: Matt Adame DO Patient is a 40-year-old female with a past medical history of fibromyalgia, lupus, hypertension, pneumonia w/ sepsis in July 2021, and right-sided port who presents today with fevers, myalgias, fatigue x1 week. Patient states she began developing the symptoms for the past week, as well as right-sided chest pain that comes on with respirations and associated with shortness of breath due to the pain. She has been taking ibuprofen for the fevers, which they respond to, however come back. She is on several pain medications chronically at home, including baclofen, Nucynta, gabapentin. These have not been alleviating her pain. She has been around her daughter who has recently been sick, experiencing some nasal congestion, rhinorrhea, cough. She denies palpitations, diaphoresis, syncope, productive cough, abdominal pain, nausea, vomiting, diarrhea, constipation. In ED, patient mildly hypertensive with BP 168/105, otherwise vital signs within normal limits and stable. Labs largely unremarkable. Initial troponin less than 0.03. CXR showed no acute process, did show unchanged ill-defined consoli dative subpleural opacity in the right lower lobe. EKG was normal sinus rhythm, no ST or T wave changes. Covid negative. Allergies Allergy/AdvReac Type Severity Reaction Status Date / Time dexamethasone Allergy Intermediate HIVES Verified 11/14/21 20:10 latex Allergy Intermediate HIVES Verified 11/14/21 20:10 pregabalin Allergy Intermediate FACE AND Verified 11/14/21 20:10 LIPS SWELLED Sulfa (Sulfonamide Allergy Intermediate LUPUS Verified 11/14/21 20:10 Antibiotics) FLARE UP morphine Allergy Mild local Verified 11/14/21 20:10 reaction at site duloxetine AdvReac Intermediate SEROTONIN Verified 11/14/21 20:10 SYNDROME escitalopram AdvReac Intermediate WENT CRAZY Verified 11/14/21 20:10 sertraline [From Zoloft] AdvReac Intermediate WENT CRAZY Verified 11/14/21 20:10 Home Medications Medication Instructions Recorded Confirmed Type alprazolam 1 mg tablet 1 mg PO BID PRN 06/13/21 11/14/21 History baclofen 10 mg tablet 20 mg PO TID PRN tab 06/19/21 11/14/21 History furosemide 20 mg tablet (Lasix) 20 mg PO QAM 07/12/21 11/14/21 History galcanezumab-gnlm 120 mg/mL 120 mg SUBCUT MO 07/12/21 11/14/21 History subcutaneous pen injector (Emgality Pen) carvedilol 25 mg tablet 25 mg PO BID 09/08/21 11/14/21 History ondansetron 4 mg disintegrating 4 mg PO Q8H PRN 09/08/21 11/14/21 History tablet fluoxetine 20 mg capsule 60 mg PO DAILY 11/14/21 11/14/21 History gabapentin 800 mg tablet 800 mg PO QID 11/14/21 11/14/21 History levothyroxine 25 mcg tablet 25 mcg PO DAILY 11/14/21 11/14/21 History tapentadol 50 mg tablet (Nucynta) 50 mg PO .5XSDAY 11/14/21 11/14/21 History Past Med/Surg History Medical History Abdominal pain Acute confusion Acute dehydration Anxiety Chest pain Chronic pain syndrome Confusion COVID-19 Dehydration Depression Gastritis Headache History of kidney infection History of lupus anticoagulant disorder History of migraine History of multiple miscarriages History of ovarian cyst History of umbilical hernia Hypertension Hypertension Hypertensive urgency Hypothyroidism Intractable epigastric abdominal pain Lupus (04/04/14) Lupus nephritis Osteoarthritis Peptic ulcer disease Peptic ulcer disease Pleuritis (09/17/14) history of Poorly-controlled hypertension Post traumatic stress disorder Pulmonary embolism history of Shortness of breath Urinary tract infection Weakness Surgical History H/O: hysterectomy History of removal of Port-a-Cath (07/19/21) Infusaport Removal Dr. Adamson 07/19/2021 History of tonsillectomy and adenoidectomy Hx of appendectomy Hx of cholecystectomy Port-A-Cath in place (08/29/20) Mediport Placement, Left Subclavian Vein Dr. Garcia 08/29/2020 Port-A-Cath in place (08/22/21) Mediport Insertion Right Subclavian - Adair Pink DO 08/22/21 Family History Sister SLE (systemic lupus erythematosus) Family/Other SLE (systemic lupus erythematosus) maternal side Social History Smoking Status: Former smoker Tobacco Type: Cigarettes Age Started Using Tobacco: 23; Age Quit Using Tobacco: 39; Second Hand Exposure: No; Hx Alcohol Use: Yes Alcohol type: beer Hx Substance Use: No Preferred Language: Luxembourgish Communication Ability: Effective Divider Operator Required: No Beliefs That Will Affect Care: None marital status: Single Current Living Situation: Spouse Current Living Situation Comment: Mickey current occupational status: employed current occupation: works at a [employer] How many Children do You have: 1 Feels Safe at Home: Yes Safety Concerns: Feels Safe At This Time Assistive Devices: None Review of Systems Review of Systems: Constitutional: reports low grade fevers, fatigue, myalgias x1 week Eyes: No diplopia, no worsening or blurred vision ENT: normal hearing, no trouble swallowing Respiratory: reports nonproductive cough Cardiovascular: right sided chest pain, w/ respirations x1 week; no palpitations Abdomen: No pain, nausea, vomiting, diarrhea or constipation Musculoskeletal: No joint pain, calf pain, swelling Neurologic: No weakness, numbness/tingling, or balance problems Psychiatric: No anxiety or depression Skin: No rash or itch Physical Exam Physical Exam: General: awake, alert, no apparent distress, 95% on RA Head: Normocephalic, atraumatic ENT: PERRL, EOMI, no pharyngeal exudate, mucous membranes moist Chest: Clear to auscultation, on room air, no adventitious breath sounds Cardiac: Regular rate and rhythm, no murmur, no JVD, normal peripheral pulses, good capillary refill Abdominal: NABS x 4 quadrants, soft, nontender to palpation, no rebound, guarding or tenderness Extremities: Normal inspection, no peripheral edema or erythema, calfs nontender to palpation Psych: Normal mood and affect Neuro: AAO x 3, strength intact bilaterally and rated 5/5, no motor deficits, speech is clear, no peripheral sensory deficits Skin: no rash or erythema; port without erythema or edema Results & Data Results & Data ([facility]) Vital Signs (Past 12 Hours) Vital Signs Temp Pulse Resp BP Pulse Ox 11/14/21 16:44 96 11/14/21 15:33 96 11/14/21 15:02 36.1 C L 74 18 168/105 H 98 Laboratory Results Abnormal lab results 11/14/21 11/14/21 Range/Units 16:30 16:30 Immature Gran # (Auto) 0.04 H (0.00-0.02) K/uL Chloride 108 H (98-107) mmol/L BUN/Creatinine Ratio 27.4 H (10-20) Diagnostic Findings Chest X-Ray 11/14/21 15:23 XR chest 1V portable HISTORY: 40 years-old Female cough, R chest pain acute cough with right-sided chest pain COMPARISON: Chest radiograph and CTA chest 09/08/2021 TECHNIQUE: Portable AP view of the chest FINDINGS: Cardiac silhouette is enlarged. Right subclavian Rqglfe-v-Gqmi catheter is unchanged with distal tip in the expected location of the brachiocephalic SVC confluence. There is no pneumothorax, large pleural effusion or overt pulmonary edema. Ill-defined consolidative opacity subpleural right lower lobe appears unchanged and better characterized on the comparison CTA of the chest. The bones appear grossly intact. IMPRESSION: 1. No acute process. 2. Unchanged ill-defined consolidative subpleural opacity of the right lower lobe, better characterized on the 09/08/2021 CTA of the chest. ECG Additional Comments: Normal sinus rhythm, Normal ECG. Code Status & VTE Plan Code Status Full code. VTE Prophylaxis Plan VTE Prophylaxis will be ordered: Yes Supervising Physician Co-Signing Physician Notes Attending addendum: I have physically seen this patient, have supervised the FERDINAND's activities, and agree with the H&P unless as otherwise noted. Assessment and Plan: Pleuritic chest pain- History of pulmonary emboli Stable right lower lobe focal consolidation on chest x-ray and CTA from 1221 Repeat chest CTA this evening negative for pulmonary emboli and shows decreased size of lung lesion Observation for the patient will be admitted to telemetry for serial cardiac enzymes, serial EKG's, cardiac rhythm monitoring and a 2-D echocardiogram with Dopplers. For serial cardiac enzymes and cardiac monitoring Follow results of blood cultures, with normal WBC and pulse oximetry, no indication for antibiotics at this time Hypertension- Continue carvedilol 25 mg p.o. twice daily Hydralazine 10 mg IV every 4 hours. Systolic greater than 160 Lupus/fibromyalgia- Continue home Nucynta 50 mg p.o. every 4 hours, baclofen 20 mg p.o. 3 times daily and gabapentin 800 mg p.o. 4 times daily avoidance of narcotics Remaining orders and notations as noted PG Care Time/CCT Total # of Minutes Spent Total Time Spent with Patient: Total time spent is greater than 50% in coordination of care (as documented) at patient's floor/unit and/or counseling patient: Coding Level of Care Code INT OBSERVATION CARE 70M LVL 3 Diagnoses Fibromyalgia M79.7 Lupus M32.9 Pleuritic chest pain R07.81 HTN (hypertension) I10 Hypertension type: unspecified Hypothyroidism E03.9 Depression F32.9 (1) HTN (hypertension) Hypertension type: unspecified Qualified Code(s): I10 - Essential (primary) hypertension
[2021-11-14] MEDS ORDERED: OPTIRAY 320 125ml IV ONE (20:27)
--- NOTE | 2021-11-14 21:09 | CT Scan Report ---
CT angio chest PE protocol CT DOSE: 628.86 mGy.cm HISTORY: 40 years-old Female with PE. Acute shortness of breath with fever and fatigue TECHNIQUE: Multiple CTA images of the chest were obtained after the intravenous administration of 120 ml Optiray. Coronal and sagittal MIPS were obtained from the axial data set and were submitted for review. All measurements were obtained according to NASCET criteria. A dose lowering technique was u tilized adhering to the principles of ALARA. COMPARISON: Chest radiograph of same day, CT chest 09/08/2021, 07/17/2021, 05/08/2021 FINDINGS: CTA: The heart is upper limits of normal in size. No pericardial effusion. Minimal coronary artery calcifi cations. No thoracic aortic aneurysm or dissection. Patency of the imaged great vessels. Unremarkable pulmonary artery. No pulmonary emboli identified. A right subclavian Jesgtd-e-Tbqs catheter is noted with distal tip terminating within the inferior SVC. CT CHEST: No thyroid nodule. Subcentimeter mediastinal and hilar lymph nodes. Trace left pleural effusion. No p neumothorax or overt pulmonary edema. 2.5 x 1.6 cm subpleural airspace opacity of the right lower lob e on image 174 continued to decrease in size. There is resolution of the previously noted central cav itation. This opacity most recently measured up to 3 cm on the 09/08/2021 study. The central airways a re patent. Cholecystectomy. 1.9 cm density within the upper outer quadrant right breast is unchanged. There is n o acute fracture or destructive bone lesion. IMPRESSION: 1. No pulmonary emboli. 2. Continued decreased size of the irregular subpleural opacity within the superior segment of the ri ght lower lobe now measuring up to 2.5 cm. Findings are suggestive of postinflammatory scarring with atelectasis. 3. Cholecystectomy. 4. Unchanged 1.9 cm irregular density within the upper outer quadrant of the right breast. This could be correlated with follow-up breast ultrasound if not already conducted. ACT 112: Negative or not required by law. The above report was generated using voice recognition software. It may contain grammatical, syntax o r spelling errors. Electronically signed by: Misael Drew M.D. 11/14/2021 9:06 PM
[2021-11-14] MEDS ORDERED: ONDANSETRON INJ 2 MG/ML 2 ML VIAL IV PRN (21:25)
[2021-11-14] MEDS ORDERED: ONDANSETRON 4 MG OD TAB PO PRN (21:25)
[2021-11-14] MEDS ORDERED: hydrALAZINE HCL 20 MG/ML VIAL IV PRN (21:25)
[2021-11-14] MEDS ORDERED: POLYETHYLENE (MIRALAX) 17 GM PACK PO PRN (21:32)
[2021-11-14] MEDS: TAPENTADOL HCL 50 MG TAB PO PRN (21:41)
--- NOTE | 2021-11-14 22:18 | Electrocardiogram Report ---
Test Reason : Blood Pressure : / mmHG Vent. Rate : 069 BPM Atrial Rate : 069 BPM P-R Int : 162 ms QRS Dur : 086 ms QT Int : 440 ms P-R-T Axes : 025 026 028 degrees QTc Int : 471 ms Poor data quality, interpretation may be adversely affected Normal sinus rhythm T wave abnormality, consider anterior ischemia When compared with ECG of 08-SEP-2021 11:58, T wave inversion is now Present in anterior leads Confirmed by Justin Arteaga ([id number]) on 11/14/2021 10:18:16 PM Referred By: REFERRED SELF Confirmed By:Justin Arteaga
[2021-11-14] MEDS: ALPRAZolam 0.5 MG TABLET PO PRN (22:28)
[2021-11-14] MEDS: carvediloL 25 MG TAB PO SCH (22:29)
[2021-11-14] MEDS: ENOXAPARIN INJ 40 MG/0.4 ML SYR SQ SCH (22:29)
[2021-11-15] MEDS: BACLOFEN 20 MG TAB PO PRN (00:31)
[2021-11-15] MEDS: TAPENTADOL HCL 50 MG TAB PO PRN ×5 (01:54→21:51)
[2021-11-15 05:53] LABS: Basophils # (auto) 0.02 K/uL (0-0.2); Basophils % (auto) 0.4 %; Eosinophils # (auto) 0.09 K/uL (0-0.5); Eosinophils % (auto) 1.6 %; Hematocrit (blood only) 38.5 % (37-47); Hemoglobin 13.2 g/dL (12.0-16.0); Immature Granulocytes # (auto) 0.02 K/uL (0.00-0.02); Immature Granulocytes % (auto) 0.4 %; Lymphocytes # (auto) 0.75 K/uL (1.2-3.4); Lymphocytes % (auto) 13.5 %; Mean Corpuscular Hemoglobin 29.7 pg (25-34); Mean Corpuscular Hgb Conc 34.3 g/dL (32-36); Mean Corpuscular Volume 86.7 fL (80-100); Mean Platelet Volume 9.7 fL (7.4-10.4); Monocytes # (auto) 0.24 K/uL (0.11-0.59); Monocytes % (auto) 4.3 %; Neutrophils # (auto) 4.43 K/uL (1.4-6.5); Neutrophils % (auto) 79.8 %; Platelet Count 226 K/uL (130-400); RDW Coefficient of Variation 14.1 % (11.5-14.5); RDW Standard Deviation 45.3 fL (36.4-46.3); Red Blood Count 4.44 M/uL (4.2-5.4); White Blood Count 5.55 K/uL (4.8-10.8)
[2021-11-15] MEDS: LEVOTHYROXINE SODIUM 25 MCG TABLET PO SCH (06:00)
[2021-11-15 06:07] LABS: Troponin I < 0.03 ng/ml (0-0.04)
[2021-11-15 06:18] LABS: Anion Gap 9 (3-11); BUN Creatinine Ratio 25.6 (10-20); Blood Urea Nitrogen 23 mg/dl (6-23); Calcium 8.6 mg/dl (8.5-10.1); Carbon Dioxide 19 mmol/L (21-32); Chloride 108 mmol/L (98-107); Est GFR (African American) 92.7 ml/min; Glucose 89 mg/dl (70-99(Fasting)); Potassium 4.1 mmol/L (3.5-5.1); Sodium 136 mmol/L (136-145)
[2021-11-15] MEDS: FUROSEMIDE 20 MG TAB PO SCH (07:42)
[2021-11-15] MEDS: carvediloL 25 MG TAB PO SCH ×2 (07:42→21:53)
[2021-11-15] MEDS: FLUoxetine HCL 20 MG CAP PO SCH (07:42)
[2021-11-15] MEDS: GABAPENTIN 800 MG TAB PO SCH ×4 (07:43→21:52)
[2021-11-15] MEDS: ALPRAZolam 0.5 MG TABLET PO PRN (08:11)
[2021-11-15 08:12] LABS: Appearance Urine Clear (Clear); Bilirubin Urine Negative (Negative); Blood Urine Negative (Negative); Color Urine Dark Yellow; Glucose Urine UA Negative (Negative); Ketones Urine Trace (Negative); Leukocyte Esterase Urine Negative (Negative); Nitrite Urine Negative (Negative); Protein Urine Negative (Negative); Specific Gravity Urine > 1.045 (1.000-1.030); Urobilinogen Urine Negative (Negative)
[2021-11-15] MEDS: HEPARIN 100 UNIT/ML 5ML FLUSH FLUSH PRN ×3 (08:56→15:09)
[2021-11-15] MEDS ORDERED: KETOROLAC TROMETHAMINE 15 MG/ML VIAL IV STA (10:34)
--- NOTE | 2021-11-15 10:39 | Hospitalist Progress Note ---
Date of Service November 15, 2021 Assessment & Plan (1) Gram-positive cocci bacteremia: Plan: Awaiting final sensitivities but prior recent cultures with Enterococcus faecalis and staph lugduneensis Suspect seeding from not fully treated prior lung abscess as previously had central cavitation although this is improving on imaging Given low thoracic back pain will get MRI thoracic and lumbar spine to evaluate for discitis Repeat TTE for vegetation - may need to consider CELIO given repeat GPC bacteremia Consult surgery for potential mediport removal if confirmed not to be contaminant Consult infectious disease Start vancomycin (2) Pleuritic chest pain: Plan: Suspect due to bacteremia as above Use toradol PRN 1st line, Morphine PRN 2nd line (3) Fibromyalgia: Plan: -Current pain regimen consists of Nucynta 50 mg PO Q4h, baclofen 20mg TID, and gabapentin 800mg QID. (4) Lupus: Plan: Noted Previously on Plaquenil but developed eye side effects, currently not on medication for this, doubtful cause of above due to normal ESR (5) HTN (hypertension): Plan: -Continue carvedilol 25 mg BID, furosemide 20mg PO daily (6) Hypothyroidism: Plan: -TSH 1.100 on admission -Continue Synthroid 25 mcg daily. (7) Depression: Plan: -Continue alprazolam 1 mg PO BID prn. -Continue Prozac 60mg daily. Plan: -switch to admission for confirmed bacteremia -SCDs, Lovenox for DVT ppx. -Full Code. Admission and Anticipated Discharge Date Admission Date: November 14, 2021 Subjective Reports ongoing severe pleuritic chest pain, worse on exertion. Reports feeling similar to when she was previously bacteremic from pneumonia in July. She had minimal WBC and procalcitonin despite bacteremic on that occasion. She does report a blister that popped around her mediport site 1-2 weeks ago but no current surrounding cellulitis. CT shows improving consolidation and central cavitation improved from then. No significant improvement since admission. Initially avoiding narcotics given dependance and no specific reversible etiology. Review of Systems Review of Systems: All systems reviewed & are unremarkable except as noted in Subjective Physical Exam Constitutional: WD/WN, vitals as above Eyes: PERRL, conjunctivae normal, anicteric sclerae ENMT: external ear and nose normal, oropharynx normal Respiratory: normal respiratory effort, lungs clear to auscultation Cardiovascular: RRR, no murmur, no edema Musculoskeletal: Spine: + paraspinal tenderness (right sided around T10) Skin: no rashes, warm and dry (no cellulitis surrounding mediport site) Neurologic: moves all extremities and awake; no focal motor deficits and not confused Psychiatric: A+Ox3, euthymic affect Genitourinary: no CVA tenderness Results & Data Results & Data ([facility]) Vital Signs (Past 12 Hours) Vital Signs Temp Pulse Pulse Resp BP Pulse Ox 11/15/21 08:00 36.9 C 76 18 122/75 94 11/15/21 07:26 68 11/15/21 01:57 36.7 C 68 16 100/63 95 11/14/21 23:44 37.0 C 86 20 143/91 H 93 11/14/21 23:27 79 PG Care Time/CCT Total # of Minutes Spent Total Time Spent with Patient: Total time spent is greater than 50% in coordination of care (as documented) at patient's floor/unit and/or counseling patient: Coding Level of Care Code 58451 Subseq Hosp Care Lvl 3 Diagnoses Pleuritic chest pain R07.81 Fibromyalgia M79.7 Lupus M32.9 HTN (hypertension) I10 Hypertension type: unspecified Hypothyroidism E03.9 Depression F32.9 Gram-positive cocci bacteremia R78.81 (1) HTN (hypertension) Hypertension type: unspecified Qualified Code(s): I10 - Essential (primary) hypertension
[2021-11-15] MEDS ORDERED: VANCOMYCIN CONSULT ACTIVE PRN (12:52)
[2021-11-15] MEDS ORDERED: VANCOMYCIN HCL 2,000 MG in SODIUM CHLORIDE 0.9% 500 ML IV ONE (13:30)
--- NOTE | 2021-11-15 13:45 | Pharmacy Report ---
Pharmacy Vanc AUC Short Note - Date of Service November 15, 2021 - Assessment & Plan Assessment 40 year old F receiving Vancomycin for treatment of bacteremia. * Admitted secondary to pleuritic chest pain w/ a few days of fevers and myalgias. * Afebrile since admission. No leukocytosis. Renal fxn at baseline. * Only one blood culture drawn and growing GPCs in chains (prev. h/o E. faecalis bacteremia). Plan Vancomycin * AUC/DALJIT is the preferred PK/PD target for vancomycin. * AUC guided dosing is effective and associated with decreased risk of nephrotoxicity compared to traditional trough targets. * Loading dose: 2000 mg (20 mg/kg) IV x 1. * Maintenance dose: 1500 mg (15 mg/kg) IV every 12 hours (previously therapeutic on this regimen). * Dose is predicted to achieve target AUC/DALJIT of 400-600 mg/L.hr and may be associated with a 17% risk of nephrotoxicity. * Trough level ordered for 11/17/21 prior to the 1400 dose. Pharmacy will continue to follow and will adjust dose/frequency as necessary. Thank you.
[2021-11-15] MEDS: MoRPHine SULFATE 4 MG/ML 1 ML CARP\\VIAL IV PRN ×2 (15:09→19:53)
--- NOTE | 2021-11-15 15:32 | XCELERA ---
[id number]
[2021-11-15] MEDS ORDERED: LORazepam 2 MG/1 ML VIAL IV PRN (16:55)
--- NOTE | 2021-11-15 18:38 | Magnetic Resonance Report ---
MRI OF THE THORACIC SPINE WITHOUT CONTRAST CLINICAL HISTORY: lower thoracic right back pain, bacteremia COMPARISON: Chest CT November 14, 2021. TECHNIQUE: Utilizing a 1.5 Felicia magnet and dedicated coil, multiplanar, multiecho imaging of the th oracic spine was performed without IV contrast. FINDINGS: Alignment of the thoracic spine is anatomic. Vertebral body heights are maintained. No susp icious marrow replacement is present. T1 and T2 hyperintensity within the T5 vertebral body is noted. This saturates on the STIR sequence. This represents a hemangioma. Thoracic cord signal and caliber are normal. There is no intracanalicular mass or fluid collection. Paravertebral soft tissues are unr emarkable. No thoracic spine fracture is present. There is a small left paracentral disc protrusion a t T8-T9 contacts the left ventral aspect of the cord. Neural foramen are patent. No evidence for disc itis within the thoracic spine. No epidural fluid collection is identified. IMPRESSION: 1. No acute process within the thoracic spine. No evidence for discitis/osteomyelitis. No epidural fl uid collection. 2. No suspicious marrow replacement. T5 vertebral body hemangioma. 3. Small left paracentral disc protrusion at T8-T9. ACT 112: Negative or not required by law. Electronically signed by: Olegario Anderson M.D. 11/15/2021 6:35 PM
--- NOTE | 2021-11-15 19:08 | Magnetic Resonance Report ---
MRI OF THE LUMBAR SPINE WITHOUT CONTRAST CLINICAL HISTORY: high lumbar right back pain, bacteremia COMPARISON STUDY: CT of the abdomen and pelvis September 112021. TECHNIQUE: Utilizing a 1.5 Felicia magnet and dedicated coil, multiplanar, multiecho imaging of the jerry mbar spine was performed without IV contrast. FINDINGS: For purposes of numbering on this exam, the L5-S1 disc space is assigned to axial image 28 of 30. Ali gnment of the lumbar spine is anatomic. Vertebral body heights are maintained. No suspicious marrow r eplacement is present. A few T1 and T2 hyperintense lesions represent hemangiomas. Discogenic changes at the L5-S1 level are present. No intracanalicular mass or fluid collection is present. There is no evidence for discitis or osteomyelitis. Conus terminates at the lower L1 level. No epidural fluid co llection. L1-2: Central canal and neural foramen are patent. L2-3: Central canal and neural foramen are patent. L3-4: Small central disc protrusion with annular tear is present. Central canal and neural foramen ar e patent. L4-5: Small central protrusion with annular tear is present. Central canal is patent. There is mild f acet arthrosis. Neural foramina patent. L5-S1: Severe disc space narrowing is noted. Tiny central disc protrusion is present. Central canal i s patent. Neural foramen are patent. IMPRESSION: 1. No acute process within the lumbar spine. No evidence for discitis or osteomyelitis. No epidural f luid collection. 2. Moderate multilevel degenerative changes without significant central canal or neural foraminal josh nosis. ACT 112: Negative or not required by law. Electronically signed by: Olegario Anderson M.D. 11/15/2021 7:06 PM
[2021-11-15] MEDS: ENOXAPARIN INJ 40 MG/0.4 ML SYR SQ SCH (21:53)
[2021-11-15] MEDS: ACETAMINOPHEN 325 MG TAB PO PRN (23:02)
[2021-11-16] MEDS: MoRPHine SULFATE 4 MG/ML 1 ML CARP\\VIAL IV PRN ×4 (00:10→15:43)
[2021-11-16] MEDS: VANCOMYCIN HCL 1,500 MG in SODIUM CHLORIDE 0.9% 500 ML IV SCH ×2 (02:46→15:56)
[2021-11-16] MEDS: TAPENTADOL HCL 50 MG TAB PO PRN ×5 (02:50→21:10)
[2021-11-16] MEDS: LEVOTHYROXINE SODIUM 25 MCG TABLET PO SCH (06:01)
[2021-11-16] MEDS: ALPRAZolam 0.5 MG TABLET PO PRN ×2 (07:40→21:20)
[2021-11-16] MEDS: FLUoxetine HCL 20 MG CAP PO SCH (07:41)
[2021-11-16] MEDS: BACLOFEN 20 MG TAB PO PRN ×2 (07:42→15:43)
[2021-11-16] MEDS: GABAPENTIN 800 MG TAB PO SCH ×4 (07:42→21:07)
[2021-11-16] MEDS: FUROSEMIDE 20 MG TAB PO SCH (07:42)
[2021-11-16] MEDS: carvediloL 25 MG TAB PO SCH (07:42)
[2021-11-16 10:09] LABS: Hemoglobin 12.6 g/dL (12.0-16.0); Mean Corpuscular Hemoglobin 29.4 pg (25-34); Mean Corpuscular Hgb Conc 34.1 g/dL (32-36); Mean Corpuscular Volume 86.2 fL (80-100); Mean Platelet Volume 9.7 fL (7.4-10.4); Platelet Count 196 K/uL (130-400); RDW Coefficient of Variation 14.2 % (11.5-14.5); RDW Standard Deviation 44.7 fL (36.4-46.3); Red Blood Count 4.29 M/uL (4.2-5.4); White Blood Count 7.99 K/uL (4.8-10.8)
[2021-11-16 10:37] LABS: BUN Creatinine Ratio 12.4 (10-20); Calcium 8.2 mg/dl (8.5-10.1); Creatinine Clr Calc Pharmacy 99.7 ml/min; Est GFR (African American) 84.7 ml/min; Est GFR (Non-African American) 73.1 ml/min; Potassium 4.1 mmol/L (3.5-5.1)
[2021-11-16 10:59] LABS: Basophils # (auto) 0.02 K/uL (0-0.2); Basophils % (auto) 0.3 %; Eosinophils # (auto) 0.12 K/uL (0-0.5); Eosinophils % (auto) 1.5 %; Immature Granulocytes # (auto) 0.03 K/uL (0.00-0.02); Immature Granulocytes % (auto) 0.4 %; Lymphocytes # (auto) 0.79 K/uL (1.2-3.4); Lymphocytes % (auto) 9.9 %; Monocytes # (auto) 0.44 K/uL (0.11-0.59); Monocytes % (auto) 5.5 %; Neutrophils # (auto) 6.59 K/uL (1.4-6.5); Neutrophils % (auto) 82.4 %; RBC Morphology Unremarkable
[2021-11-16] MEDS: ACETAMINOPHEN 325 MG TAB PO PRN (11:11)
--- NOTE | 2021-11-16 12:15 | Cardiology Progress Note ---
Date of Service November 16, 2021 Assessment & Plan Admission and Anticipated Discharge Date Admission Date: November 15, 2021 Results & Data ([facility]) Vital Signs (Past 12 Hours) Vital Signs Temp Pulse Pulse Resp BP BP Pulse Ox 11/16/21 11:40 88 11/16/21 11:18 90 11/16/21 11:12 38.5 C H 74 16 109/72 94 11/16/21 08:07 39.1 C H 82 18 117/78 93 11/16/21 03:22 37.7 C H 79 18 108/65 90 11/16/21 00:15 37.5 C Reviewed records Will need anesthesia for CELIO given opioid dependence No [facility] provider (Milan Henry previously) for 7:15 Thursday slot with anesthesia For now plan with anesthesia for Thursday unless [facility] can cover CELIO Thursday afternoon ([facility] on Thursday and doesn't do CELIO's) Anesthesia consult; Can make NPO Thursday night if possible for [facility] provider do in the afternoon Thursday
--- NOTE | 2021-11-16 13:09 | Surgery Consultation ---
Date of Consultation November 16, 2021 Assessment & Plan (1) Pleuritic chest pain: fevers initially WBC normal agree with work-up if port is infected or source of infection can remove this hospitalization but not obviously infected. Present on Admission?: Yes History of Present Illness Attending Physician: Hung Botello MD History of Present Illness This is a 40-year-old female with a past medical history of fibromyalgia, lupus, hypertension, pneumonia w/ sepsis in July 2021, and right-sided port who presents today with fevers, myalgias, fatigue x1 week. She began developing fevers,chilss, and right-sided chest pain that comes on with respirations and associated with shortness of breath due to the pain. She has been exposed daughter who has recently been sick, experiencing some nasal congestion, rhinorrhea, cough. She denies palpitations, diaphoresis, syncope, productive cough, abdominal pain, nausea, vomiting, diarrhea, constipation. CXR showed no acute process, did show unchanged ill-defined consolidative subpleural opacity in the right lower lobe. The port is functioning well and there is no outward sign of infection. Covid negative. Allergies Allergy/AdvReac Type Severity Reaction Status Date / Time dexamethasone Allergy Intermediate HIVES Verified 11/14/21 20:10 latex Allergy Intermediate HIVES Verified 11/14/21 20:10 pregabalin Allergy Intermediate FACE AND Verified 11/14/21 20:10 LIPS SWELLED Sulfa (Sulfonamide Allergy Intermediate LUPUS Verified 11/14/21 20:10 Antibiotics) FLARE UP morphine Allergy Mild local Verified 11/14/21 20:10 reaction at site duloxetine AdvReac Intermediate SEROTONIN Verified 11/14/21 20:10 SYNDROME escitalopram AdvReac Intermediate WENT CRAZY Verified 11/14/21 20:10 sertraline [From Zoloft] AdvReac Intermediate WENT CRAZY Verified 11/14/21 20:10 Home Medications Medication Instructions Recorded Confirmed Type alprazolam 1 mg tablet 1 mg PO BID PRN 06/13/21 11/14/21 History baclofen 10 mg tablet 20 mg PO TID PRN tab 06/19/21 11/14/21 History furosemide 20 mg tablet (Lasix) 20 mg PO QAM 07/12/21 11/14/21 History galcanezumab-gnlm 120 mg/mL 120 mg SUBCUT MO 07/12/21 11/14/21 History subcutaneous pen injector (Emgality Pen) carvedilol 25 mg tablet 25 mg PO BID 09/08/21 11/14/21 History ondansetron 4 mg disintegrating 4 mg PO Q8H PRN 09/08/21 11/14/21 History tablet fluoxetine 20 mg capsule 60 mg PO DAILY 11/14/21 11/14/21 History gabapentin 800 mg tablet 800 mg PO QID 11/14/21 11/14/21 History levothyroxine 25 mcg tablet 25 mcg PO DAILY 11/14/21 11/14/21 History tapentadol 50 mg tablet (Nucynta) 50 mg PO .5XSDAY 11/14/21 11/14/21 History Patient History Medical History Abdominal pain Acute confusion Acute dehydration Anxiety Chest pain Chronic pain syndrome Confusion COVID-19 Dehydration Depression Gastritis Headache History of kidney infection History of lupus anticoagulant disorder History of migraine History of multiple miscarriages History of ovarian cyst History of umbilical hernia Hypertension Hypertension Hypertensive urgency Hypothyroidism Intractable epigastric abdominal pain Lupus (04/04/14) Lupus nephritis Osteoarthritis Peptic ulcer disease Peptic ulcer disease Pleuritis (09/17/14) history of Poorly-controlled hypertension Post traumatic stress disorder Pulmonary embolism history of Shortness of breath Urinary tract infection Weakness Surgical History H/O: hysterectomy History of removal of Port-a-Cath (07/19/21) Infusaport Removal Dr. Adamson 07/19/2021 History of tonsillectomy and adenoidectomy Hx of appendectomy Hx of cholecystectomy Port-A-Cath in place (08/29/20) Mediport Placement, Left Subclavian Vein Dr. 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 Beliefs That Will Affect Care: None marital status: Single Current Living Situation: Spouse Current Living Situation Comment: Mickey current occupational status: employed 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 How many Children do You have: 1 Feels Safe at Home: Yes Safety Concerns: Feels Safe At This Time Assistive Devices: None Review of Systems Constitutional: + fever, + chills and + fatigue; no weakness and no anorexia Eyes: no problem reported Ear, Nose, Mouth, Throat: no problem reported Respiratory: + cough and + dyspnea; no hemoptysis Cardiovascular: + chest pain Gastrointestinal: no abdominal pain, no nausea and no vomiting Genitourinary: no dysuria Musculoskeletal: no back pain, no neck pain and no joint pain Integumentary: no problem reported Neurologic: no localized weakness and no generalized weakness Psychiatric: no behavioral changes Hematologic / Lymphatic: no easy bleeding and no easy bruising Physical Exam Constitutional: WD/WN, vitals as above Eyes: PERRL, conjunctivae normal, anicteric sclerae ENMT: external ear and nose normal, oropharynx normal Neck: trachea midline Respiratory: normal respiratory effort, lungs clear to auscultation Cardiovascular: RRR, no murmur, no edema Chest (Breasts): Chest: + vascular access device or port (no erythema or swelling; no drainage) Gastrointestinal (Abdomen): Inspection/Auscultation: abdomen normal to inspection and normal bowel sounds; abdomen not distended Percussion/Palpation: abdomen soft; abdomen nontender Musculoskeletal: Head/Neck/Chest: normocephalic and head atraumatic Skin: no rashes, warm and dry Psychiatric: Orientation: alert and oriented x 3 Results & Data ([facility]) Vital Signs (Past 12 Hours) Vital Signs Temp Pulse Pulse Resp BP BP Pulse Ox 11/16/21 11:40 88 11/16/21 11:18 90 11/16/21 11:12 38.5 C H 74 16 109/72 94 11/16/21 08:07 39.1 C H 82 18 117/78 93 11/16/21 03:22 37.7 C H 79 18 108/[address] angio chest PE protocol CT DOSE: 628.86 mGy.cm HISTORY: 40 years-old Female with PE. Acute shortness of breath with fever and fatigue TECHNIQUE: Multiple CTA images of the chest were obtained after the intravenous administration of 120 ml Optiray. Coronal and sagittal MIPS were obtained from the axial data set and were submitted for review. All measurements were obtained according to NASCET criteria. A dose lowering technique was utilized adhering to the principles of ALARA. COMPARISON: Chest radiograph of same day, CT chest 09/08/2021, 07/17/2021, 05/08/2021 FINDINGS: CTA: The heart is upper limits of normal in size. No pericardial effusion. Minimal coronary artery calcifications. No thoracic aortic aneurysm or dissection. Patency of the imaged great vessels. Unremarkable pulmonary artery. No pulmonary emboli identified. A right subclavian Rmdmtm-r-[id number] catheter is noted with distal tip terminating within the inferior SVC. CT CHEST: No thyroid nodule. Subcentimeter mediastinal and hilar lymph nodes. Trace left pleural effusion. No pneumothorax or overt pulmonary edema. 2.5 x 1.6 cm subpleural airspace opacity of the right lower lobe on image 174 continued to decrease in size. There is resolution of the previously noted central cavitation. This opacity most recently measured up to 3 cm on the 09/08/2021 study. The central airways are patent. Cholecystectomy. 1.9 cm density within the upper outer quadrant right breast is unchanged. There is no acute fracture or destructive bone lesion. IMPRESSION: 1. No pulmonary emboli. 2. Continued decreased size of the irregular subpleural opacity within the superior segment of the right lower lobe now measuring up to 2.5 cm. Findings are suggestive of postinflammatory scarring with atelectasis. 3. Cholecystectomy. 4. Unchanged 1.9 cm irregular density within the upper outer quadrant of the right breast. This could be correlated with follow-up breast ultrasound if not already conducted
--- NOTE | 2021-11-16 16:40 | Hospitalist Progress Note ---
Date of Service November 16, 2021 Assessment & Plan (1) Gram-positive cocci bacteremia: Plan: Awaiting final sensitivities but prior recent cultures with Enterococcus faecalis and staph lugdunensis Suspect seeding from not fully treated prior lung abscess as previously had central cavitation although this is improving on imaging her repeat bacteremia has come on with recurrence of her right sided pleuritic pain MRI thoracic and lumbar spine - without source of infection despite back pain. Will defer repeat imaging for right sided abdominal pain as multiple recent CTs for abdominal pain without any underlying etiology. Repeat TTE without vegetation - would recommend CELIO give recurrence and cardiology consulted regarding this Appreciate surgery input regarding mediport will defer whether this needs removal to infectious disease. Consult infectious disease pending Continue IV vancomycin (2) Pleuritic chest pain: Plan: Suspect due to bacteremia (area of consolidation next to pleura) as above Use toradol PRN 1st line, Morphine PRN 2nd line (3) Fibromyalgia: Plan: -Current pain regimen consists of Nucynta 50 mg PO Q4h, baclofen 20mg TID, and gabapentin 800mg QID. -Toradol and morphine added given etiology for new acute pain is present (4) Lupus: Plan: Noted Previously on Plaquenil but developed eye side effects, currently not on medication for this (5) HTN (hypertension): Plan: -Continue carvedilol (reduce 12.5 mg BID due to relative hypotension), furosemide 20mg PO daily (6) Hypothyroidism: Plan: -TSH 1.100 on admission -Continue Synthroid 25 mcg daily. (7) Depression: Plan: -Continue alprazolam 1 mg PO BID prn. -Continue Prozac 60mg daily. Plan: -continue admission on med Picarro -SCDs Lovenox for DVT ppx. -Full Code. Admission and Anticipated Discharge Date Admission Date: November 15, 2021 Subjective No significant change in pleuritic chest pain. No fever or chills. Also having some mild right sided abdominal pain. No change in bowel habit, nausea or vomiting. No urinary symptoms. Review of Systems Review of Systems: All systems reviewed & are unremarkable except as noted in Subjective Physical Exam Constitutional: WD/WN, vitals as above ENMT: external ear and nose normal, oropharynx normal Respiratory: normal respiratory effort, lungs clear to auscultation Cardiovascular: RRR, no murmur, no edema Gastrointestinal (Abdomen): Inspection/Auscultation: normal bowel sounds; abdomen not distended Percussion/Palpation: + abdomen tender (right) and abdomen soft; no guarding and abdomen not rigid Musculoskeletal: Spine: + paraspinal tenderness (right sided around T10) Skin: no rashes, warm and dry (no cellulitis surrounding mediport site) Neurologic: moves all extremities and awake; no focal motor deficits and not confused Psychiatric: A+Ox3, euthymic affect Genitourinary: no CVA tenderness Results & Data Results & Data ([facility]) Vital Signs (Past 12 Hours) Vital Signs Temp Pulse Pulse Resp BP Pulse Ox 11/16/21 16:02 84 11/16/21 15:19 36.8 C 75 18 99/64 L 90 11/16/21 11:40 88 11/16/21 11:18 90 11/16/21 11:12 38.5 C H 74 16 109/72 94 11/16/21 08:07 39.1 C H 82 18 117/78 93 PG Care Time/CCT Total # of Minutes Spent Total Time Spent with Patient: Total time spent is greater than 50% in coordination of care (as documented) at patient's floor/unit and/or counseling patient: Coding Level of Care Code 56548 Subseq Hosp Care Lvl 3 Diagnoses Gram-positive cocci bacteremia R78.81 Pleuritic chest pain R07.81 Fibromyalgia M79.7 Lupus M32.9 HTN (hypertension) I10 Hypertension type: unspecified Hypothyroidism E03.9 Depression F32.9 (1) HTN (hypertension) Hypertension type: unspecified Qualified Code(s): I10 - Essential (primary) hypertension
[2021-11-16] MEDS: KETOROLAC TROMETHAMINE 15 MG/ML VIAL IV PRN (18:42)
[2021-11-16] MEDS: HYDROmorphone INJ 0.5 MG/0.5 ML SYR IV PRN (19:46)
[2021-11-16] MEDS: ENOXAPARIN INJ 40 MG/0.4 ML SYR SQ SCH (21:06)
[2021-11-16] MEDS: carvediloL 12.5 MG TAB PO SCH (21:20)
[2021-11-17] MEDS: HYDROmorphone INJ 0.5 MG/0.5 ML SYR IV PRN (01:01)
[2021-11-17] MEDS: TAPENTADOL HCL 50 MG TAB PO PRN ×3 (01:50→12:02)
[2021-11-17] MEDS: VANCOMYCIN HCL 1,500 MG in SODIUM CHLORIDE 0.9% 500 ML IV SCH (01:50)
[2021-11-17] MEDS: KETOROLAC TROMETHAMINE 15 MG/ML VIAL IV PRN (01:50)
[2021-11-17] MEDS: LEVOTHYROXINE SODIUM 25 MCG TABLET PO SCH (06:14)
[2021-11-17] MEDS: BACLOFEN 20 MG TAB PO PRN ×2 (06:14→12:03)
[2021-11-17] MEDS: ALPRAZolam 0.5 MG TABLET PO PRN (08:29)
[2021-11-17] MEDS: FLUoxetine HCL 20 MG CAP PO SCH (08:30)
[2021-11-17] MEDS: FUROSEMIDE 20 MG TAB PO SCH (08:30)
[2021-11-17] MEDS: GABAPENTIN 800 MG TAB PO SCH ×2 (08:30→12:03)
[2021-11-17] MEDS: carvediloL 12.5 MG TAB PO SCH (08:31)
--- NOTE | 2021-11-17 09:18 | Surgery Progress Note ---
Date of Service November 17, 2021 Assessment & Plan (1) Gram-positive cocci bacteremia: Plan: port appears without infection await ID input as to fate of port if port removed may need PICC line Admission and Anticipated Discharge Date Admission Date: November 15, 2021 Subjective still with pain febrile last night Review of Systems Constitutional: + fever; no chills and no sweats Respiratory: no cough and no dyspnea Cardiovascular: + chest pain Gastrointestinal: no abdominal pain, no nausea and no vomiting Genitourinary: no dysuria Physical Exam Constitutional: WD/WN, vitals as above Eyes: PERRL, conjunctivae normal, anicteric sclerae ENMT: external ear and nose normal, oropharynx normal Neck: trachea midline Respiratory: normal respiratory effort, lungs clear to auscultation Cardiovascular: RRR, no murmur, no edema Chest (Breasts): Chest: + vascular access device or port (no erythema or drainage) Gastrointestinal (Abdomen): Inspection/Auscultation: abdomen normal to inspection and normal bowel sounds; abdomen not distended Percussion/Palpation: abdomen soft; abdomen nontender Skin: no rashes, warm and dry Psychiatric: Orientation: alert and oriented x 3 Results & Data ([facility]) Vital Signs (Past 12 Hours) Vital Signs Temp Pulse Pulse Resp BP BP Pulse Ox 11/17/21 09:11 65 11/17/21 07:41 36.9 C 80 18 92/63 L 94 11/17/21 03:15 37.2 C 87 16 100/66 91 11/16/21 22:28 37.5 C 82 16 97/62 L 89 L 11/16/21 22:20 86
[2021-11-17] MEDS ORDERED: MoRPHine SULFATE 4 MG/ML 1 ML CARP\\VIAL IV PRN (10:16)
[2021-11-17] MEDS ORDERED: NALOXONE HCL 0.4 MG/1 ML VIAL/CARP IV STA (12:55)
[2021-11-17] MEDS ORDERED: ALBUTEROL 0.083% NEBU SOLN 3 ML VIAL NEB STA (13:04)
[2021-11-17] MEDS ORDERED: SODIUM CHLORIDE 0.9% 500 ML IV ONE (13:07)
[2021-11-17] MEDS ORDERED: TAPENTADOL HCL 50 MG TAB PO PRN ×2 (13:08→13:54)
[2021-11-17] MEDS ORDERED: BACLOFEN 10 MG TAB PO PRN ×2 (13:08→13:54)
[2021-11-17] MEDS ORDERED: ALPRAZolam 0.5 MG TABLET PO PRN (13:08)
[2021-11-17] MEDS ORDERED: ALBUTEROL 0.083% NEBU SOLN 3 ML VIAL ONE (13:11)
--- NOTE | 2021-11-17 13:21 | Hospitalist Progress Note ---
Date of Service November 17, 2021 Assessment & Plan (1) Gram-positive cocci bacteremia: Plan: Awaiting final sensitivities but prior recent blood cultures with Enterococcus faecalis and Staph lugdunensis. Prior catheter site from 07/19/2022 grew Enterococcus faecalis and Acinetobacter lwoffii. - MRI thoracic and lumbar spine - without source of infection despite back pain. - Repeat TTE without vegetation - would recommend CELIO give recurrence and cardiology consulted regarding this - Appreciate surgery input regarding Mediport will defer whether this needs removal to infectious disease. - Consult infectious disease pending - Continue IV vancomycin -> On 11/17, became acutely hypotensive (80/40) and lethargic. Episode of bradycardia with junctional beats, then tachycardic to 110s. Concern for opioid overdose vs. sepsis vs. VTE (though on VTE ppx since admission). -> Narcan 0.4 mg nebulized with some improvement in mental status, but still hypotensive. NSS bolus given, monitoring response. STAT labs pending. -> Lowering all other sedating medications substantially. -> Discussed with pharmacy - Will add Unasyn as patient grew previous Acinetobacter, and vancomycin would *not* be treating that. (2) Pleuritic chest pain: Plan: Suspect due to prior pneumonia (area of consolidation next to pleura) as above. - Use Toradol PRN 1st line, Morphine PRN 2nd line (all doses reduced on 11/17 for sedation and hypotension). (3) Fibromyalgia: Plan: Current pain regimen consists of Nucynta 50 mg PO Q4h, baclofen 20mg TID, and gabapentin 800mg QID. - Toradol and morphine added - see above (4) Lupus: Plan: Noted. Previously on Plaquenil but developed eye side effects, currently not on medication for this. (5) HTN (hypertension): Plan: Generally normal BP (~130/80). - Carvedilol reduced to 12.5 mg BID (from 25 mg) due to relative hypotension -> Carvedilol & furosemide stopped on 11/17 for episode of hypotension. (6) Hypothyroidism: Plan: TSH 1.100 on admission. - Continue Synthroid 25 mcg daily. (7) Depression: Plan: - Continue alprazolam PO BID PRN (reduced to 0.5 on 11/17). - Continue Prozac 60mg daily. Plan: I spent 75 minutes of critical care time in the treatment of an acute medical decompensation that threatened the patient's life and well-being, including time spent at the patient bedside evaluating the patient, time spent discussing with other providers, time reviewing labs and documentation. This is independent of any time spent on procedures or teaching. Admission and Anticipated Discharge Date Admission Date: November 15, 2021 Subjective Seen two times today. On initial visit, she was in no distress. Shifting in bed somewhat, but no objective indication of pain. She is feels the Dilaudid was not helping her pain. She asks to return to the morphine from yesterday. On second visit, she is more lethargic. She wakes up to listen, but admits that she is having trouble staying awake. She does report that she is in pain, but will then drift off to sleep. Physical Exam Constitutional: WD/WN, vitals as above + acute distress and + lethargic Eyes: EOM intact bilaterally; no conjunctival abnormality ENMT: external ear and nose normal, oropharynx normal Neck: trachea midline, no thyromegaly normal visual inspection Respiratory: normal respiratory effort, lungs clear to auscultation no respiratory distress Cardiovascular: RRR, no murmur, no edema Rate/Rhythm: regular rhythm and + tachycardic Gastrointestinal (Abdomen): Inspection/Auscultation: abdomen normal to inspection; abdomen not distended Musculoskeletal: no cyanosis or clubbing, extremities motor strength 5/5 Skin: no rashes, warm and dry Neurologic: moves all extremities, awake (With stimulation) and + confused Psychiatric: Orientation: oriented to person and cooperative; + not alert Results & Data Results & Data ([facility]) Vital Signs (Past 12 Hours) Vital Signs Temp Pulse Pulse Resp BP BP Pulse Ox 11/17/21 13:06 37.7 C H 113 H 16 80/42 L 89 L 11/17/21 11:12 38.1 C H 88 18 132/83 98 11/17/21 09:11 65 11/17/21 07:41 36.9 C 80 18 92/63 L 94 11/17/21 03:15 37.2 C 87 16 100/66 91 PG Care Time/CCT Total # of Minutes Spent Total Time Spent with Patient: Total time spent is greater than 50% in coordination of care (as documented) at patient's floor/unit and/or counseling patient: Critical Care Time: Yes (75 minutes) Coding Level of Care Code 41817 Subseq Hosp Care Lvl 3 Diagnoses Gram-positive cocci bacteremia R78.81 Pleuritic chest pain R07.81 Fibromyalgia M79.7 Lupus M32.9 HTN (hypertension) I10 Hypertension type: unspecified Hypothyroidism E03.9 Depression F32.9 Additional Codes Critical Care Time - Critical Care Time: Yes ([id number]) Time Spent (min) 75 (1) HTN (hypertension) Hypertension type: unspecified Qualified Code(s): I10 - Essential (primary) hypertension
[2021-11-17] MEDS ORDERED: VANCOMYCIN TROUGH ONE (13:30)
[2021-11-17] MEDS ORDERED: MoRPHine SULFATE 2 MG/ML CARP IV PRN (13:54)
[2021-11-17 14:35] LABS: Base Excess VBG -2.8 mEq/L; HCO3 VBG 22 mmol/L; PCO2 VBG 38 mmHg (38-50); PO2 VBG 18 mmHg; pH VBG 7.38 (7.36-7.41)
[2021-11-17 14:38] LABS: Oxygen Saturation VBG < 60.0 %
[2021-11-17 14:41] LABS: Hematocrit (blood only) 36.4 % (37-47); Hemoglobin 12.3 g/dL (12.0-16.0); Mean Corpuscular Hemoglobin 29.9 pg (25-34); Mean Corpuscular Volume 88.6 fL (80-100); Mean Platelet Volume 10.3 fL (7.4-10.4); Platelet Count 219 K/uL (130-400); RDW Coefficient of Variation 14.7 % (11.5-14.5); RDW Standard Deviation 47.9 fL (36.4-46.3); Red Blood Count 4.11 M/uL (4.2-5.4); White Blood Count 11.59 K/uL (4.8-10.8)
[2021-11-17 14:44] LABS: Mean Corpuscular Hgb Conc 33.8 g/dL (32-36)
[2021-11-17 14:54] LABS: Basophils # (auto) 0.04 K/uL (0-0.2); Basophils % (auto) 0.3 %; Eosinophils % (auto) 1.7 %; Immature Granulocytes # (auto) 0.03 K/uL (0.00-0.02); Immature Granulocytes % (auto) 0.3 %; Lymphocytes % (auto) 10.4 %; Monocytes # (auto) 0.64 K/uL (0.11-0.59); Monocytes % (auto) 5.5 %; Neutrophils # (auto) 9.48 K/uL (1.4-6.5); Neutrophils % (auto) 81.8 %
[2021-11-17] MEDS ORDERED: NALOXONE HCL 0.4 MG/1 ML VIAL/CARP ONE ×2 (14:56→15:03)
[2021-11-17] MEDS ORDERED: RAPID SEQUENCE INDUCTION BAG ONE (15:05)
[2021-11-17] MEDS ORDERED: Standard 16mcg/mL; 4 MG in 250 mL for HYPOTENSION IV SCH (15:15)
[2021-11-17] MEDS ORDERED: SODIUM BICARB 8.4% INJ 50 MEQ/50 ML SYR IV ONE ×2 (15:23→17:40)
[2021-11-17] MEDS ORDERED: CALCIUM CHLORIDE 10% 10 ML SYR IV ONE ×2 (15:24→17:40)
[2021-11-17 15:25] LABS: Albumin Globulin Ratio 1.2 (0.9-2); Albumin Level 3.3 gm/dl (3.4-5.0); BUN Creatinine Ratio 11.9 (10-20); Bilirubin,Total 1.1 mg/dl (0.2-1.0); Calcium 7.7 mg/dl (8.5-10.1); Est GFR (African American) 73.5 ml/min; Est GFR (Non-African American) 63.4 ml/min; Globulin 2.7 gm/dl (2.5-4.0); Magnesium 1.9 mg/dl (1.7-2.4); Potassium 5.5 mmol/L (3.5-5.1)
--- NOTE | 2021-11-17 15:46 | Procedure Note ---
Procedure Note Date of Service November 17, 2021 Supervising Physician Co-Signing Physician Notes INTUBATION PROCEDURE NOTE: Provider: Ray Rosario MD Procedure was emergent. Patient undergoing CPR in the setting of cardiac arrest. Arrived in the ICU to find the patient in full cardiac arrest undergoing CPR. She was being ventilated with bag valve mask by respiratory therapy. While Dr. Varela directed resuscitative efforts, I directed myself to the head of the bed. Using video laryngoscopy, I was able to visualize the vocal cords and passed a 7.5 endotracheal tube through the cords. The cuff was inflated. She was attached to [id number] ventilation. Due to CPR, end-tidal CO2 was not reliable however I did directly visualize the tube extending through the vocal cords. Sats were low throughout the procedure. Please refer to critical care supplementation for additional details. Coding CPT Codes Resuscitation - Resuscitation: 96632 Endotracheal Intubation, emergency (PG3 1500) [facility] [place] Procedure Codes (Charges) Resuscitation Resuscitation: 41396 Endotracheal Intubation, emergency
--- NOTE | 2021-11-17 15:52 | Communication Note ---
Date of Service: November 17, 2021 Called urgently to bedside by hospitalist for patient rapidly deteriorating. The patient been hypotensive on the floor and I discussed with the hospitalist. I presented immediately to the ICU where the patient just arrived. She had suffered a cardiac arrest and was currently receiving CPR under the direction of Dr. Varela. Respiratory therapy was performing [id number] ventilation at the head of the bed. I intubated the patient without pausing CPR. Please refer to separate note. Dr. Varela continued to conduct ACLS resuscitative efforts. CPR was of good quality with plethysmography showing pulse contours and palpable and dopplerable pulses. We did not have end-tidal CO2. She received multiple rounds of epinephrine, bicarb, and calcium. Throughout the course, we intermittently were able to achieve return of spontaneous circulation. I performed bedside critical care echocardiogram which revealed decreased wall motion of all ventricles with significant smoke filling the ventricles consistent with a lower no cardiac output state. The patient was initiated on an epi infusion at 0.5. Despite this, she continued to manifest significant instability requiring intermittent CPR. She did transition to a wide-complex tachycardia and was defibrillated x1 with 200 J. Despite our best efforts, we could only maintain return of spont aneous circulation for a minute or 2 before the patient deteriorated again. No pericardial effusion or tamponade was identified on echo. There did not appear to be any RV dilatation consistent with pulmonary embolism. After 30 minutes of resuscitative efforts, Dr. Varela and I both felt that given the lack of ability to maintain return of spontaneous circulation for any significant time and ano bereket for over 30 minutes (we are unable to get her oxygen saturations above 30% despite intubation and gux-[id number]-osde ventilation, the likelihood of any functional recovery at this point time was extraordinarily unlikely. The patient continued to deteriorate into PEA/asystole. We were unable to reverse course and eventually resuscitative efforts were ceased and the patient . Please refer to Dr. Varela's notes for additional details. Total of 65 minutes was spent in evaluation management and resuscitative efforts for this patient Coding Level of Care Code Critical Care 1st 30-74 mins
--- NOTE | 2021-11-17 15:52 | Pharmacy Report ---
Pharmacy Vanc AUC Short Note - Date of Service November 17, 2021 - Assessment & Plan Assessment 40 year old F receiving IV vancomycin for treatment of bacteremia. Pertinent microbiologic data includes: blood culture 2/4 growing gram positive cocci in chains. Day # 3 of antimicrobial therapy. Plan Vancomycin * Trough is 10.1 mg/mL * dose would be increased due to indication * AUC/DALJIT is the preferred PK/PD target for vancomycin * AUC guided dosing is effective and associated with decreased risk of nephrotoxicity compared to traditional trough targets * Trough level of 16.8 mcg/mL is predicted to achieve target AUC/DALJIT of 400-600 mg/L.hr and may be associated with a 12 % risk of nephrotoxicity * Change to 1750 mg IV every 12 hours * Trough level would be ordered at steady state Pharmacy will continue to follow and will adjust dose/frequency as necessary. Thank you.
[2021-11-17] MEDS ORDERED: AMPICILLIN/SULBACTAM SOD 3,000 MG in 0.9 % SODIUM CHLORIDE 100 ML IV SCH (16:00)
[2021-11-17] MEDS ORDERED: VANCOMYCIN HCL 1,750 MG in SODIUM CHLORIDE 0.9% 500 ML IV SCH (16:00)
[2021-11-17] MEDS ORDERED: D5W IV ONE (17:40)
[2021-11-17] MEDS ORDERED: NALOXONE HCL 0.4 MG/1 ML VIAL/CARP IV ONE (17:40)
--- NOTE | 2021-11-17 18:20 | Death Pronouncement Note ---
Date of Service November 17, 2021 Pronouncement Note Admission Date November 15, 2021 Date and Time of Date of : 11/17/21 Time of : 15:31 Preliminary Cause of (1) Sepsis: (2) Gram-positive cocci bacteremia: Contributing Factors Polypharmacy with possible overdose Summary RN notified me of conduction issue and possible cardiac block at 12:37pm. At that time, the patient was lethargic, but arousable and oriented. BP was 80/40. I went upstairs and assessed the patient. She was arousable and oriented. She admitted to being tired and continuing to fall off to sleep, but still reported 9/10 pain. At that time, I ordered a full set of labs & blood cultures, CXR/KUB, ordered a 500 mL fluid bolus, and broadened her antibiotics to include Unasyn in case of Acinetobacter or other infection that wasn't covered just by vancomycin. I also lowered or stopped every sedating medication she was presently on. We administered albuterol neb, then Narcan 0.4 mg nebulized which I have had experience as giving less abrupt opioid reversal. She became more alert and spontaneously awake and continued to report 9/10 pain. I instructed to RN to run the fluid bolus wide open and recheck her blood pressure as soon as it was done. Labs were unable to be drawn peripherally due to poor venous access, and I gave verbal order for them to be drawn from her port (which had previously not been used due to concern for infection). I checked on her again about 2:10. 500 mL of IV fluids were finishing. BP was stable. Mental status also remained stable with her arousable and oriented, but quickly falling back asleep when not being stimulated. I asked the RN to run another 500 mL of IV fluids. I was called back to the room by the RN and Victor Hugo Obrien was called at approx. 2:40pm. The patient's blood pressure was palpable, but automated cuff could not get a read. Manual SBP by me was ~70 mmHg, but hard to determine as the patient was very restless and moving around. SpO2 could not be determined because the pulse oximeters could not get a read. Her HR remained in sinus tach, but had more pauses though overall HR remained ~100 - 110 bpm on telemetry. Despite her BP and SpO2, she was arousable to her name and repeated that she felt "terrible." She could not give any further ROS at that time due to confusion and agitation. Narcan 0.4 mg IV was administered at this time as well. BiPap was ordered, but the patient became nauseated had several episodes of dry heaving, so BiPap was abandoned. RT felt they could not get a ABG at this time due to her low BP. I ordered 1 mg of epinephrine and transfer to ICU where we planned for likely intubation. I called Dr. Rosario and discussed the case with him as she was being transferred to the ICU. I was at beside with her during this entire time. In the ICU, as she was moved to the ICU bed, an empty bottle of Nucynta was fou nd under her along with a vape pen. Nucynta is on formulary in the hospital, and she had been receiving hospital doses while hospitalized. I was informed by the RN that earlier in the afternoon she had denied taking any of her home Nucynta, but I was unable to confirm this myself with the patient. A search of her bag from home did not reveal any further medication bottles to my knowledge. Within a few minutes of her arriving in the ICU, her respiratory rate increased transiently to ~30 rpm, but she entered PEA with a loss of pulse. A code blue was called. High quality CPR was immediately begun. RT was already in the room and began bag-mask ventilation. Appropriate rounds of epinephrine, calcium, and bicarbonate were given. IV fluids were run wide-open. Rhythm checks revealed PEA. Dr. Rosario arrived, and preceded with intubation. After approximately 12 minutes of CPR, ROSC was achieved with BP of 150/100 in sinus rhythm; however, she quickly went into PEA again and CPR was resumed. Bedside ultrasound revealed nearly akinetic heart motions. After approx. 20 minutes of CPR, ROSC was again achieved. However, within a minute, she went into ventricular tachycardia. CPR was resumed, and defibrillation was done. CPR was resumed. On pulse check, she was back in PEA rhtyhm. After another 10 minutes of CPR, pulse check revealed asystole, and bedside ultrasound revealed akinesis of the heart. The code was stopped at 3:31pm with time of 3:31pm. Additional Data Confirmation of : no pulse, no respirations, no heart sounds and pupils fixed and dilated Family: contacted Attending/PCP notified?: Yes Attending physician: Jose Varela MD Was code activated?: Yes Autopsy requested?: No billet examiner notified?: Yes Organ bank notified?: Yes Advance directives: No Coding Level of Care Code D/C DAY MANAGEMENT >30 MINS Diagnoses Gram-positive cocci bacteremia R78.81 Sepsis A41.9
--- NOTE | 2021-11-17 19:01 | Discharge Summary ---
Date of Service November 17, 2021 Admission HPI Per Admitting Provider Patient is a 40-year-old female with a past medical history of fibromyalgia, lupus, hypertension, pneumonia w/ sepsis in July 2021, and right-sided port who presents today with fevers, myalgias, fatigue x1 week. Patient states she began developing the symptoms for the past week, as well as right-sided chest pain that comes on with respirations and associated with shortness of breath due to the pain. She has been taking ibuprofen for the fevers, which they respond to, however come back. She is on several pain medications chronically at home, including baclofen, Nucynta, gabapentin. These have not been alleviating her pain. She has been around her daughter who has recently been sick, experiencing some nasal congestion, rhinorrhea, cough. She denies palpitations, diaphoresis, syncope, productive cough, abdominal pain, nausea, vomiting, diarrhea, constipation. In ED, patient mildly hypertensive with BP 168/105, otherwise vital signs within normal limits and stable. Labs largely unremarkable. Initial troponin less than 0.03. CXR showed no acute process, did show unchanged ill-defined consolidative subpleural opacity in the right lower lobe. EKG was normal sinus rhythm, no ST or T wave changes. Covid negative. Principal Diagnosis Sepsis from bacteremia Polypharmacy and possible overdose Discharge Exam No respirations, no heart sounds, pupils fixed and dilated Discharge Data Allergies Allergy/AdvReac Type Severity Reaction Status Date / Time dexamethasone Allergy Intermediate HIVES Verified 11/14/21 20:10 latex Allergy Intermediate HIVES Verified 11/14/21 20:10 pregabalin Allergy Intermediate FACE AND Verified 11/14/21 20:10 LIPS SWELLED Sulfa (Sulfonamide Allergy Intermediate LUPUS Verified 11/14/21 20:10 Antibiotics) FLARE UP morphine Allergy Mild local Verified 11/14/21 20:10 reaction at site duloxetine AdvReac Intermediate SEROTONIN Verified 11/14/21 20:10 SYNDROME escitalopram AdvReac Intermediate WENT CRAZY Verified 11/14/21 20:10 sertraline [From Zoloft] AdvReac Intermediate WENT CRAZY Verified 11/14/21 20:10 Consultations 11/14/21 19:30 ED Decision to Admit Stat 11/15/21 13:18 Consult Infectious Diseases Routine 11/15/21 14:20 Consult General Surgery Routine 11/16/21 10:23 Consult Cardiology Routine Ordered Studies 11/14/21 19:10 CT angio chest PE protocol Stat 11/15/21 14:21 MR lumbar spine wo con Routine MR thoracic spine wo con Routine Hospital Course (1) Sepsis: (2) Gram-positive cocci bacteremia: Awaiting final sensitivities but prior recent blood cultures with Enterococcus faecalis and Staph lugdunensis. Prior catheter site from 07/19/2022 grew Enterococcus faecalis and Acinetobacter lwoffii. - MRI thoracic and lumbar spine - without source of infection despite back pain. - Repeat TTE without vegetation - would recommend CELIO give recurrence and cardiology consulted regarding this - Appreciate surgery input regarding Mediport will defer whether this needs removal to infectious disease. - Consult infectious disease pending - Continue IV vancomycin RN notified me of conduction issue and possible cardiac block at 12:37pm. At that time, the patient was lethargic, but arousable and oriented. BP was 80/40. I went upstairs and assessed the patient. She was arousable and oriented. She admitted to being tired and continuing to fall off to sleep, but still reported 9/10 pain. At that time, I ordered a full set of labs & blood cultures, CXR/KUB, ordered a 500 mL fluid bolus, and broadened her antibiotics to include Unasyn in case of Acinetobacter or other infection that wasn't covered just by vancomycin. I also lowered or stopped every sedating medication she was presently on. We administered albuterol neb, then Narcan 0.4 mg nebulized which I have had experience as giving less abrupt opioid reversal. She became more alert and spontaneously awake and continued to report 9/10 pain. I instructed to RN to run the fluid bolus wide open and recheck her blood pressure as soon as it was done. Labs were unable to be drawn peripherally due to poor venous access, and I gave verbal order for them to be drawn from her port (which had previously not been used due to concern for infection). I checked on her again about 2:10. 500 mL of IV fluids were finishing. BP was stable. Mental status also remained stable with her arousable and oriented, but quickly falling back asleep when not being stimulated. I asked the RN to run another 500 mL of IV fluids. I was called back to the room by the RN and Victor Hugo Obrien was called at approx. 2:40pm. The patient's blood pressure was palpable, but automated cuff could not get a read. Manual SBP by me was ~70 mmHg, but hard to determine as the patient was very restless and moving around. SpO2 could not be determined because the pulse oximeters could not get a read. Her HR remained in sinus tach, but had more pauses though overall HR remained ~100 - 110 bpm on telemetry. Despite her BP and SpO2, she was arousable to her name and repeated that she felt "terrible." She could not give any further ROS at that time due to confusion and agitation. Narcan 0.4 mg IV was administered at this time as well. BiPap was ordered, but the patient became nauseated had several episodes of dry heaving, so BiPap was abandoned. RT felt they could not get a ABG at this time due to her low BP. I ordered 1 mg of epinephrine and transfer to ICU where we planned for likely intubation. I called Dr. Rosario and discussed the case with him as she was being transferred to the ICU. I was at beside with her during this entire time. In the ICU, as she was moved to the ICU bed, an empty bottle of Nucynta was found under her along with a vape pen. Nucynta is on formulary in the hospital, and she had been receiving hospital doses while hospitalized. I was informed by the RN that earlier in the afternoon she had denied taking any of her home Nucynta, but I was unable to confirm this myself with the patient. A search of her bag from home did not reveal any further medication bottles to my knowledge. Within a few minutes of her arriving in the ICU, her respiratory rate increased transiently to ~30 rpm, but she entered PEA with a loss of pulse. A code blue was called. High quality CPR was immediately begun. RT was already in the room and began bag-mask ventilation. Appropriate rounds of epinephrine, calcium, and bicarbonate were given. IV fluids were run wide-open. Rhythm checks revealed PEA. Dr. Rosario arrived, and preceded with intubation. After approximately 12 minutes of CPR, ROSC was achieved with BP of 150/100 in sinus rhythm; however, she quickly went into PEA again and CPR was resumed. Bedside ultrasound revealed nearly akinetic heart motions. After approx. 20 minutes of CPR, ROSC was again achieved. However, within a minute, she went into ventricular tachycardia. CPR was resumed, and defibrillation was done. CPR was resumed. On pulse check, she was back in PEA [facility]. After another 10 minutes of CPR, pulse check revealed asystole, and bedside ultrasound revealed akinesis of the heart. The code was stopped at 3:31pm with time of 3:31pm. Total Time Total Time Spent Total Time Spent (In Minutes): 180 Discharge Plan Discharge Items Patient Disposition: Discharge Diagnosis: Hypotension Other Date/Time: 11/17/21 15:31 Coding Level of Care Code D/C DAY MANAGEMENT >30 MINS Diagnoses Sepsis A41.9 Gram-positive cocci bacteremia R78.81
[2021-11-17] MEDS ORDERED: GABAPENTIN 100 MG CAP PO SCH (21:00)
--- NOTE | 2021-11-19 06:38 | Electrocardiogram Report ---
Test Reason : Blood Pressure : / mmHG Vent. Rate : 079 BPM Atrial Rate : 070 BPM P-R Int : 000 ms QRS Dur : 152 ms QT Int : 444 ms P-R-T Axes : 000 096 021 degrees QTc Int : 509 ms Atrial fibrillation Right bundle branch block Anterior infarct , age undetermined T wave abnormality, consider lateral ischemia Abnormal ECG When compared with ECG of 14-NOV-2021 15:33, Atrial fibrillation has replaced Sinus rhythm Right bundle branch block is now Present Anterior infarct is now Present Confirmed by Dilip Cuevas ([id number]) on 11/19/2021 6:38:04 AM Referred By: REFERRED SELF Confirmed By:Dilip Cuevas
== END 2021-11-17 17:41 | disposition expired | DRG 872 ==
LOC: 2N 15:01 → ED 15:01 → SUATTDRO 20:14 → 2N 21:15 → SUATTDRO 11-15 12:54 → 1E 11-17 15:04
DX: Z88.6 Allergy status to analgesic agent; F32.A Depression, unspecified; M32.9 Systemic lupus erythematosus, unspecified; E86.0 Dehydration; E03.9 Hypothyroidism, unspecified; Z87.11 Personal history of peptic ulcer disease; Z86.16 Personal history of COVID-19; B96.89 Other specified bacterial agents as the cause of diseases classified elsewhere; Z86.711 Personal history of pulmonary embolism; Z90.710 Acquired absence of both cervix and uterus; F41.9 Anxiety disorder, unspecified; Z87.891 Personal history of nicotine dependence; Z90.49 Acquired absence of other specified parts of digestive tract; Z90.09 Acquired absence of other part of head and neck; M79.7 Fibromyalgia; G89.4 Chronic pain syndrome; I46.9 Cardiac arrest, cause unspecified; I47.2 Ventricular tachycardia; Z88.8 Allergy status to other drugs, medicaments and biological substances; I10 Essential (primary) hypertension; Z91.040 Latex allergy status; Z88.2 Allergy status to sulfonamides; M19.90 Unspecified osteoarthritis, unspecified site; F43.10 Post-traumatic stress disorder, unspecified; A41.89 Other specified sepsis; T50.901A Poisoning by unspecified drugs, medicaments and biological substances, accidental (unintentional), initial encounter